=== PATIENT | male | born 1970 | race Caucasian/White ===

== ENCOUNTER 2017-01-20 10:17 | Emergency (ER) | payer OTHER ==
[~2017-01-20] VITALS: Ht 175.3 cm; Wt 78.0 kg
[2017-01-20 10:32] VITALS: BP 106/71
[2017-01-20 11:41] VITALS: BP 106/71
--- NOTE | 2017-01-21 06:53 | Emergency Room Report ---
History of Present Illness General Chief Complaint: Earache Source: Patient Present Illness HPI 46-year-old male no significant past medical history presenting with bilateral ear wax. Patient states that he has not seen a doctor for a long time as he does not have a primary care doctor, states that ears have become very full of wax and have become uncomfortable. Denies any fever chills hearing loss nausea vomiting or headache Allergies: Coded Allergies: No Known Allergies (Unverified , 01/20/17) Patient History Past Medical History: see triage record Past Surgical History: none Pertinent Family History: none Reviewed Nursing Documentation: PMH: Agreed, PSxH: Agreed Nursing Documentation-PMH Past Medical History: No History, Except For Hx Hypertension: Yes Hx Pacemaker: No Hx Asthma: Yes Hx COPD: Yes Hx Diabetes: No Hx Cancer: No Hx Gastrointestinal Problems: Yes - appectectomy Hx Dialysis: No History Of Psychiatric Problem: Yes - Anxiety Hx Neurological Problems: No Hx Cerebrovascular Accident: No Hx Seizures: No Review of Systems All Other Systems: negative except mentioned in HPI Physical Exam Vital Signs Date Time Temp Pulse Resp B/P (MAP) Pulse Ox O2 Delivery O2 Flow Rate FiO2 01/20/17 10:32 98.2 74 16 106/71 97 Room Air Sp02 EP Interpretation: reviewed, normal General Appearance: normal inspection, well appearing, no apparent distress, alert, GCS 15, non-toxic Head: normocephalic, atraumatic Eyes: bilateral eye normal inspection, bilateral eye PERRL, bilateral eye EOMI ENT: normal pharynx, normal voice, moist mucus membranes, other - Right ear canal with moderate amount of cerumen, left ear canal with minimal amount of serum and. Bilateral TMs are within normal limits Neck: normal inspection, full range of motion, supple Respiratory: normal inspection, lungs clear, normal breath sounds, no respiratory distress, no retraction, no wheezing, speaking full sentences, chest symmetrical Cardiovascular #1: normal inspection, regular rate, rhythm, no edema, normal capillary refill Cardiovascular #2: 2+ radial (R), 2+ radial (L) Gastrointestinal: normal inspection, non tender, soft, non-distended, no guarding Musculoskeletal: normal inspection, back normal, normal range of motion, non- tender Neurologic: normal inspection, alert, oriented x3, responsive, motor strength/ tone normal, sensory intact, normal gait, speech normal Psychiatric: normal inspection, judgement/insight normal, memory normal Skin: normal inspection, normal color, no rash, warm/dry, well hydrated, normal turgor Procedures Additional Procedure Procedure Narrative Bilateral middle ear canal irrigation performed to remove ear wax Procedure was performed with normal saline and flush Patient tolerated procedure well Medical Decision Making Diagnostic Impression: Primary Impression: Excessive cerumen in both ear canals ER Course 46-year-old male with bilateral ear wax Plan: Ear canal irrigation ER course: Ear canal irrigation performed with removal of ear wax no complications Disposition: Patient is to be discharged to home. Patient is instructed to follow up with their primary care doctor within 5 days. Strict return precautions discussed with patient such as fever, chills, worsening/severe pain, nausea, vomiting, which may indicate severe illness. Patient verbalizes understanding and agrees with plan. Please note that this Emergency Department Report was dictated using [employer] professor technology software, occasionally this can lead to erroneous entry secondary to interpretation by the dictation equipment Last Vital Signs Date Time Temp Pulse Resp B/P (MAP) Pulse Ox O2 Delivery O2 Flow Rate FiO2 01/20/17 11:49 98.2 01/20/17 11:41 78 16 106/71 97 Room Air Disposition: HOME, SELF-CARE Condition: Stable Referrals: [facility]ERR[facility] (PCP) Patient Instructions: Cerumen Impaction Additional Instructions: Please followup with your primary care doctor within 5 days. Herman Cancino M.D. Jan 21, 2017 06:53
== END 2017-01-20 12:22 | disposition home or self-care (01) ==
LOC: EMR 11:15
DX: H61.23 Impacted cerumen, bilateral (principal); I10 Essential (primary) hypertension; J44.9 Chronic obstructive pulmonary disease, unspecified; F41.9 Anxiety disorder, unspecified
CPT/HCPCS: 69210; 99283

== ENCOUNTER 2017-07-02 23:04 | Inpatient (IN) | payer OTHER ==
[~2017-07-02] VITALS: Ht 175.3 cm; Wt 49.0 kg
[~2017-07-02 23:04] MED LIST: KLONOPIN1 MG ORAL; QUETIAPINE FUMA25 MG ORAL
--- NOTE | 2017-07-02 23:22 | Emergency Room Report ---
History of Present Illness General Chief Complaint: Abdominal Pain Source: Patient Present Illness HPI Is a 46-year-old male with a history of schizophrenia. He is taking cervical and also Adderall for ADHD. He presents with chief complaint abdominal pain. He said he hasn't had a good bowel movement for 2 weeks. His been having abdominal pain on off for a while now. His been in several hospital. Most recently [place] few days ago. He said he was admitted for several days. He had lab work and CT scan. He said they did a colonoscopy and found out. Denies any other complaint. Pain is sharp in nature. Diffuse in nature. 10 out of 10. He was picked up by a nearby fast food restaurant. No radiation. Nothing made it better. Nothing made it worse. No vomiting. Allergies: Coded Allergies: No Known Allergies (Unverified , 01/20/17) Patient History Past Medical History: see triage record, old chart reviewed, psych hx Past Surgical History: none Pertinent Family History: none Social History: Reports: smoking Immunizations: other Reviewed Nursing Documentation: PMH: Agreed, PSxH: Agreed Nursing Documentation-PMH Past Medical History: No History, Except For Hx Hypertension: Yes Hx Pacemaker: No Hx Asthma: Yes Hx COPD: Yes Hx Diabetes: No Hx Cancer: No Hx Gastrointestinal Problems: Yes - appectectomy Hx Dialysis: No History Of Psychiatric Problem: Yes Hx Neurological Problems: No Hx Cerebrovascular Accident: No Hx Seizures: No Review of Systems Eye: Denies: eye pain, blurred vision ENT: Denies: ear pain, nose congestion, throat swelling Respiratory: Denies: cough, shortness of breath Cardiovascular: Denies: chest pain, palpitations Gastrointestinal: Reports: abdominal pain, Denies: diarrhea, nausea, vomiting Musculoskeletal: Denies: back pain, joint pain Skin: Denies: rash Neurological: Denies: headache, numbness Endocrine: Denies: increased thirst, increased urine Hematologic/Lymphatic: Denies: easy bruising All Other Systems: negative except mentioned in HPI Physical Exam Vital Signs Date Time Temp Pulse Resp B/P (MAP) Pulse Ox O2 Delivery O2 Flow Rate FiO2 07/02/17 22:58 92 18 146/94 98 Room Air vitals normal Sp02 EP Interpretation: reviewed, normal General Appearance: well appearing, no apparent distress, alert, other - Patient is very demonstrative. Yelling in pain. Head: normocephalic, atraumatic Eyes: bilateral eye PERRL, bilateral eye EOMI ENT: hearing grossly normal, normal pharynx Neck: full range of motion, supple, no meningismus Respiratory: chest non-tender, lungs clear, normal breath sounds Cardiovascular #1: regular rate, rhythm, no murmur Gastrointestinal: no mass, no organomegaly, no bruit, non-distended, tenderness - Diffuse, but soft, decreased bowel sounds Rectal: other - normal tone. hard stool Musculoskeletal: back normal, gait/station normal, normal range of motion Psychiatric: mood/affect normal Skin: warm/dry Medical Decision Making Diagnostic Impression: Primary Impression: ARF (acute renal failure) Qualified Codes: N17.9 - Acute kidney failure, unspecified Additional Impressions: Acute constipation Jejunitis Amphetamine abuse Opiate dependence Qualified Codes: F11.20 - Opioid dependence, uncomplicated UTI (urinary tract infection) Qualified Codes: N30.00 - Acute cystitis without hematuria ER Course Patient with abdominal pain and severe constipation. Systolic combination of drug abuse and opioid abuse. Patient initially said that he is not on any pain medication. Also told me that he does not use drugs when asked about drug abuse. He said that he was prescribe Adderall for ADHD. On the [employer] system, he is monthly prescription for hydrocodone. Also see other doctors for prescription of clonazepam and opiates. There is no prescription for Adderall. When I ask him about this, he told me that he was given to him by his friend. He was at [place] 6 days ago. Labs are unremarkable. BUN is normal. White count was normal. A CT scan and showed moderate dilated small bowel with fluid relating to large amount of fecal material in the colon. He has acute renal failure here. This may be secondary to drug abuse. He had her amount of stool with Fleet enema. I discussed the case with Dr. Brown who sent the patient for transfer to [facility]. I also review the records from [place]. Laboratory Tests Test 07/03/17 00:01 White Blood Count 18.0 K/UL (4.8-10.8) H Red Blood Count 5.64 M/UL (4.70-6.10) Hemoglobin 18.0 G/DL (14.2-18.0) Hematocrit 53.7 % (42.0-52.0) H Mean Corpuscular Volume 95 FL (80-99) Mean Corpuscular Hemoglobin 32.0 PG (27.0-31.0) H Mean Corpuscular Hemoglobin Concent 33.6 G/DL (32.0-36.0) Red Cell Distribution Width 11.9 % (11.6-14.8) Platelet Count 349 K/UL (150-450) Mean Platelet Volume 6.2 FL (6.5-10.1) L Neutrophils (%) (Auto) % (45.0-75.0) Lymphocytes (%) (Auto) % (20.0-45.0) Monocytes (%) (Auto) % (1.0-10.0) Eosinophils (%) (Auto) % (0.0-3.0) Basophils (%) (Auto) % (0.0-2.0) Urine Color Yellow Urine Appearance Slightly cloudy Urine pH 5 (4.5-8.0) Urine Specific [place] 1.025 (1.005-1.035) Urine Protein 2+ (NEGATIVE) H Urine Glucose (UA) Negative (NEGATIVE) Urine Ketones 1+ (NEGATIVE) H Urine Occult Blood 3+ (NEGATIVE) H Urine Nitrite Negative (NEGATIVE) Urine Bilirubin 1+ (NEGATIVE) H Urine Ictotest Positive Urine Urobilinogen Normal MG/DL (0.0-1.0) Urine Leukocyte Esterase 2+ (NEGATIVE) H Urine RBC 30-40 /HPF (0 - 0) H Urine WBC 15-20 /HPF (0 - 0) H Urine Squamous Epithelial Cells None /LPF (NONE/OCC) Urine Bacteria Moderate /HPF (NONE) H Urine Sperm Many /LPF (NONE) Sodium Level 136 MMOL/L (136-145) Potassium Level 5.9 MMOL/L (3.5-5.1) H Chloride Level 94 MMOL/L (98-107) L Carbon Dioxide Level 18 MMOL/L (21-32) L Anion Gap 24 mmol/L (5-15) H Blood Urea Nitrogen 64 mg/dL (7-18) H Creatinine 5.0 MG/DL (0.55-1.30) H Estimat Glomerular Filtration Rate 12.5 mL/min (>60) Glucose Level 122 MG/DL (74-106) H Calcium Level 9.8 MG/DL (8.5-10.1) Total Bilirubin 0.5 MG/DL (0.2-1.0) Aspartate Amino Transf (AST/SGOT) 75 U/L (15-37) H Alanine Aminotransferase (ALT/SGPT) 72 U/L (12-78) Alkaline Phosphatase 119 U/L (46-116) H Total Protein 8.8 G/DL (6.4-8.2) H Albumin 4.5 G/DL (3.4-5.0) Globulin 4.3 g/dL Albumin/Globulin Ratio 1.0 (1.0-2.7) Lipase 139 U/L (73-393) Urine Opiates Screen Negative (NEGATIVE) Urine Barbiturates Screen Negative (NEGATIVE) Phencyclidine (PCP) Screen Negative (NEGATIVE) Urine Amphetamines Screen Positive (NEGATIVE) H Urine Benzodiazepines Screen Negative (NEGATIVE) Urine Cocaine Screen Negative (NEGATIVE) Urine Marijuana (THC) Screen Negative (NEGATIVE) Lab Results Impression labs with acute renal failure Rhythm Strip Diag. Results Rhythm Strip Time: 02:54 EP Interpretation: yes Rate: 88 Rhythm: NSR, no PVC's, no ectopy CT/MRI/US Diagnostic Results CT/MRI/US Diagnostic Results : Imaging Test Ordered: CT abdomen and pelvis Impression read by radiologist. Inflammation of the jejeunum. Severe constipation. Last Vital Signs Date Time Temp Pulse Resp B/P (MAP) Pulse Ox O2 Delivery O2 Flow Rate FiO2 07/02/17 22:58 92 18 146/94 98 Room Air Status: improved Disposition: XFER SHT-TRM HOSP Condition: Stable MELISA REED M.D. Jul 02, 2017 23:22
[2017-07-02] MEDS ORDERED: Fleet's Enema 133ml RECTAL ONE (23:30)
[2017-07-02] MEDS ORDERED: Ketorolac 30mg Inj IV ONE (23:30)
[2017-07-03] VITALS (7 sets, daily range): BP systolic 118–157; BP diastolic 65–99
[2017-07-03 00:29] LABS: HEMATOCRIT 53.7 % (42.0-52.0); MEAN CORPUSCULAR VOLUME 95 FL (80-99); PLATELET COUNT 349 K/UL (150-450); RED BLOOD COUNT 5.64 M/UL (4.70-6.10); RED CELL DISTRIBUTION WIDTH 11.9 % (11.6-14.8)
[2017-07-03 00:39] LABS: ALANINE AMINOTRANSFERASE 72 U/L (12-78); ALBUMIN 4.5 G/DL (3.4-5.0); ALKALINE PHOSPHATASE 119 U/L (46-116); ANION GAP 24 mmol/L (5-15); ASPARTATE AMINO TRANSFERASE 75 U/L (15-37); BILIRUBIN,TOTAL 0.5 MG/DL (0.2-1.0); BLOOD UREA NITROGEN 64 mg/dL (7-18); CALCIUM 9.8 MG/DL (8.5-10.1); CARBON DIOXIDE 18 MMOL/L (21-32); CHLORIDE 94 MMOL/L (98-107); POTASSIUM 5.9 MMOL/L (3.5-5.1); SODIUM 136 MMOL/L (136-145)
[2017-07-03 01:57] LABS: BILIRUBIN, URINE 1+ (NEGATIVE); GLUCOSE, URINE (UA) NEGATIVE (NEGATIVE); KETONES,URINE 1+ (NEGATIVE); NITRITE,URINE NEGATIVE (NEGATIVE); PH,URINE 5 (4.5-8.0); PROTEIN,URINE 2+ (NEGATIVE); UROBILINOGEN,URINE NORMAL MG/DL (0.0-1.0)
[2017-07-03 02:09] LABS: APPEARANCE,URINE SLIGHTLY CLOUDY; COLOR,URINE YELLOW; LEUKOCYTE ESTERASE ,URINE 2+ (NEGATIVE)
[2017-07-03] MEDS ORDERED: Ciprofloxacin 500mg tab ORAL ONE (02:30)
[2017-07-03] MEDS ORDERED: Mylanta II UD 30ml ORAL PRN ×2 (07:15→10:30)
[2017-07-03] MEDS ORDERED: LORazepam Inj 2mg/ml 1ml IV PRN ×2 (07:15→11:15)
[2017-07-03] MEDS ORDERED: Morphine Sulfate 4mg/ml Inj IVP PRN ×2 (07:15→11:15)
[2017-07-03] MEDS ORDERED: Heparin 5000 units/ml inj SUBQ SCH (09:00)
--- NOTE | 2017-07-03 09:13 | Diagnostic Imaging Report ---
Indication: Abdominal pain Technique: Continuous helical transaxial imaging of the abdomen and pelvis was obtained from the lung bases to the pubic symphysis. No intravenous contrast was administered. Coronal 2-D reformats were also obtained. Automatic Exposure Control was utilized. Total Dose length Product (DLP): 460.[address] Dose Index Volume (CTDIvol): 9.4 mGy Comparison: none Findings: There are mildly distended loops of small bowel diffusely noted throughout the abdomen with suggestion of mild wall thickening. The small bowel loops are primarily fluid-filled. Enteritis is suspected. There is also moderate amount of retention of fecal material within the colon which is also distended. Arterial calcifications are present. The lung bases are clear. Evaluation of solid organs is limited on the study done without intravenous contrast. Gallbladder is grossly unremarkable. Bladder is unremarkable. IMPRESSION: Suspected enteritis. Please correlate clinically. Moderate stool retention in the colon also noted. Appendix not definitely seen. No obvious signs of acute appendicitis. [facility] has communicated the preliminary results to the Emergency Department. Their findings are largely concordant with this report. The CT scanner at [facility] is accredited by the [employer] and the scans are performed using dose optimization techniques as appropriate to a performed exam including Automatic Exposure control.
[2017-07-03] MEDS ORDERED: Nitroglycerin Subl 0.4mg tab SL PRN (09:15)
[2017-07-03 10:06] LABS: ALANINE AMINOTRANSFERASE 63 U/L (12-78); ALBUMIN 3.9 G/DL (3.4-5.0); ALBUMIN/GLOBULIN RATIO 1.3 (1.0-2.7); ALKALINE PHOSPHATASE 97 U/L (46-116); ANION GAP 17 mmol/L (5-15); ASPARTATE AMINO TRANSFERASE 86 U/L (15-37); BILIRUBIN,TOTAL 0.5 MG/DL (0.2-1.0); BLOOD UREA NITROGEN 81 mg/dL (7-18); CALCIUM 8.8 MG/DL (8.5-10.1); CARBON DIOXIDE 22 MMOL/L (21-32); CHLORIDE 96 MMOL/L (98-107); CREATINE KINASE 1543 U/L (26-308); CREATININE 4.9 MG/DL (0.55-1.30); PHOSPHORUS 8.9 MG/DL (2.5-4.9); SODIUM 135 MMOL/L (136-145)
--- NOTE | 2017-07-03 10:08 | Diagnostic Imaging Report ---
Indication: Abdominal pain Comparison: None Single view of the abdomen obtained Findings: There is a relative paucity of bowel gas. There is distention of the colon due to feces. No mass, ectopic calcifications, or abnormal gas collections are identified. The bones are unremarkable. Impression: Moderate stool burden. Relatively nondiagnostic study with regard to small bowel.
[2017-07-03 10:15] LABS: POTASSIUM 7.6 MMOL/L (3.5-5.1)
[2017-07-03] MEDS: Nitroglycerin Subl 0.4mg tab SL PRN ×2 (10:18→10:27)
--- NOTE | 2017-07-03 10:44 | Consultation ---
Consult Note Consult Note asked to eval for renal failure Is a 46-year-old male with a history of schizophrenia. He is taking cervical and also Adderall for ADHD. He presents with chief complaint abdominal pain. He said he hasn't had a good bowel movement for 2 weeks. His been having abdominal pain on off for a while now. His been in several hospital. Most recently [place] few days ago. He said he was admitted for several days. He had lab work and CT scan. He said they did a colonoscopy and found out. Denies any other complaint. Pain is sharp in nature. Diffuse in nature. 10 out of 10. He was picked up by a nearby fast food restaurant. No radiation. Nothing made it better. Nothing made it worse. No vomiting. Hx Hypertension: Yes Hx Asthma: Yes Hx COPD: Yes Hx Gastrointestinal Problems: Yes - appectectomy History Of Psychiatric Problem: Yes examined- data reviewed discussed with RN . Assessment/Plan Status: acute renal failure- ? CKD underlying High K Plan: Hydrate- 2D echo Kidney VALDEZ Kayexelate Flomax Dickens Phos binders NOEMY MARK Jul 03, 2017 10:44
[2017-07-03] MEDS ORDERED: Sodium Polystyrene Sulfonate 15gm Powder ORAL ONE ×2 (10:45→10:50)
[2017-07-03] MEDS: Docusate 100mg cap ORAL SCH ×2 (11:19→17:37)
[2017-07-03] MEDS: D5NS 1,000 ML IV SCH ×3 (11:20→20:45)
[2017-07-03] MEDS: Tamsulosin 0.4mg cap ORAL SCH ×2 (11:20→17:38)
--- NOTE | 2017-07-03 13:31 | History and Physical ---
History of Present Illness General Reason for Hospitalization: Abdominal Pain Present Illness HPI 46-year-old male with a history of schizophrenia presented to ER with chief complaint abdominal pain. He said he hasn't had a good bowel movement for 2 weeks. His been in several hospital. Most recently [place] few days ago. Denies any other complaint. Pain is sharp in nature. No radiation. Nothing made it better. Pt was found to be in renal failure and admitted for further work up. Allergies: Coded Allergies: No Known Allergies (Unverified , 01/20/17) Medication History Scheduled Clonazepam* (Klonopin*), 1 MG ORAL Q6H, (Reported) Quetiapine Fumarate* (Seroquel*), 25 MG ORAL DAILY, (Reported) Patient History Healthcare decision maker SELF Resuscitation status Full Code Advanced Directive on File No Past Medical/Surgical History Past Medical/Surgical History: (1) Opiate dependence (2) Psychosis Review of Systems Gastrointestinal: Reports: abdominal pain All Other Systems: negative except mentioned in HPI Physical Exam General Appearance: WD/WN Lines, tubes and drains: peripheral HEENT: normocephalic, atraumatic Neck: non-tender, normal alignment, supple Respiratory/Chest: chest wall non-tender, lungs clear Breasts: no masses Cardiovascular/Chest: normal peripheral pulses, normal rate Abdomen: normal bowel sounds Genitourinary/Rectal: normal genital exam Extremities: normal range of motion Skin Exam: normal pigmentation Last 24 Hour Vital Signs Date Time Temp Pulse Resp B/P (MAP) Pulse Ox O2 Delivery O2 Flow Rate FiO2 07/03/17 12:00 116 07/03/17 11:57 97.5 116 141/99 94 Nasal Cannula 2.0 97.5 07/03/17 10:27 122/59 07/03/17 10:18 164/100 07/03/17 10:03 120 25 157/75 97 Nasal Cannula 2.0 07/03/17 09:37 118/83 07/03/17 08:04 97.7 119 18 118/83 95 Room Air 97.7 07/03/17 06:33 98.8 87 18 128/65 98 Room Air 98.8 07/03/17 06:24 98.8 87 18 135/85 98 Room Air 98.8 07/03/17 03:03 98.8 87 18 135/85 98 Room Air 98.8 07/02/17 22:58 92 18 146/94 98 Room Air Intake and Output 07/02/17 07/03/17 19:00 07:00 Intake Total 0 ml Balance 0 ml Intake Oral 0 ml Laboratory Tests Test 07/03/17 00:01 07/03/17 09:05 07/03/17 10:55 White Blood Count 18.0 K/UL (4.8-10.8) H Red Blood Count 5.64 M/UL (4.70-6.10) Hemoglobin 18.0 G/DL (14.2-18.0) Hematocrit 53.7 % (42.0-52.0) H Mean Corpuscular Volume 95 FL (80-99) Mean Corpuscular Hemoglobin 32.0 PG (27.0-31.0) H Mean Corpuscular Hemoglobin Concent 33.6 G/DL (32.0-36.0) Red Cell Distribution Width 11.9 % (11.6-14.8) Platelet Count 349 K/UL (150-450) Mean Platelet Volume 6.2 FL (6.5-10.1) L Neutrophils (%) (Auto) % (45.0-75.0) Lymphocytes (%) (Auto) % (20.0-45.0) Monocytes (%) (Auto) % (1.0-10.0) Eosinophils (%) (Auto) % (0.0-3.0) Basophils (%) (Auto) % (0.0-2.0) Urine Color Yellow Pending Urine Appearance Slightly cloudy Pending Urine pH 5 (4.5-8.0) Pending Urine Specific [place] 1.025 (1.005-1.035) Pending Urine Protein 2+ (NEGATIVE) H Pending Urine Glucose (UA) Negative (NEGATIVE) Pending Urine Ketones 1+ (NEGATIVE) H Pending Urine Occult Blood 3+ (NEGATIVE) H Pending Urine Nitrite Negative (NEGATIVE) Pending Urine Bilirubin 1+ (NEGATIVE) H Pending Urine Ictotest Positive Urine Urobilinogen Normal MG/DL (0.0-1.0) Pending Urine Leukocyte Esterase 2+ (NEGATIVE) H Pending Urine RBC 30-40 /HPF (0 - 0) H Pending Urine WBC 15-20 /HPF (0 - 0) H Pending Urine Squamous Epithelial Cells None /LPF (NONE/OCC) Pending Urine Bacteria Moderate /HPF (NONE) H Pending Urine Sperm Many /LPF (NONE) Sodium Level 136 MMOL/L (136-145) 135 MMOL/L (136-145) L Potassium Level 5.9 MMOL/L (3.5-5.1) H 7.6 MMOL/L (3.5-5.1) *H Chloride Level 94 MMOL/L (98-107) L 96 MMOL/L (98-107) L Carbon Dioxide Level 18 MMOL/L (21-32) L 22 MMOL/L (21-32) Anion Gap 24 mmol/L (5-15) H 17 mmol/L (5-15) H Blood Urea Nitrogen 64 mg/dL (7-18) H 81 mg/dL (7-18) H Creatinine 5.0 MG/DL (0.55-1.30) H 4.9 MG/DL (0.55-1.30) H Estimat Glomerular Filtration Rate 12.5 mL/min (>60) 12.8 mL/min (>60) Glucose Level 122 MG/DL (74-106) H 109 MG/DL (74-106) H Calcium Level 9.8 MG/DL (8.5-10.1) 8.8 MG/DL (8.5-10.1) Total Bilirubin 0.5 MG/DL (0.2-1.0) 0.5 MG/DL (0.2-1.0) Aspartate Amino Transf (AST/SGOT) 75 U/L (15-37) H 86 U/L (15-37) H Alanine Aminotransferase (ALT/SGPT) 72 U/L (12-78) 63 U/L (12-78) Alkaline Phosphatase 119 U/L (46-116) H 97 U/L (46-116) Total Protein 8.8 G/DL (6.4-8.2) H 7.0 G/DL (6.4-8.2) Albumin 4.5 G/DL (3.4-5.0) 3.9 G/DL (3.4-5.0) Globulin 4.3 g/dL 3.1 g/dL Albumin/Globulin Ratio 1.0 (1.0-2.7) 1.3 (1.0-2.7) Lipase 139 U/L (73-393) Urine Opiates Screen Negative (NEGATIVE) Urine Barbiturates Screen Negative (NEGATIVE) Phencyclidine (PCP) Screen Negative (NEGATIVE) Urine Amphetamines Screen Positive (NEGATIVE) H Urine Benzodiazepines Screen Negative (NEGATIVE) Urine Cocaine Screen Negative (NEGATIVE) Urine Marijuana (THC) Screen Negative (NEGATIVE) Osmolality 316 mOsm/kg (297-317) Uric Acid 12.7 MG/DL (2.6-7.2) H Phosphorus Level 8.9 MG/DL (2.5-4.9) H Magnesium Level 2.6 MG/DL (1.8-2.4) H Total Creatine Kinase 1543 U/L (26-308) H Troponin I 0.000 ng/mL (0.000-0.056) C-Reactive Protein, Quantitative 28.0 mg/dL (0.00-0.90) H Free Thyroxine 1.00 NG/DL (0.76-1.46) Free Triiodothyronine 2.2 pg/mL (2.3-4.2) L Cortisol Pending Urine Eosinophils Pending Urine Osmolality Pending Urine Random Sodium 18 MEQ/L (20-110) L Urine Random Chloride 37 mmol/L (55-125) L Urine Potassium Timed 96 mmol/L (12-62) H Height (Feet): 5 Height (Inches): 9.00 Weight (Pounds): 158 Medications Current Medications Medications (Trade) Dose Ordered Sig/Kayy Route PRN Reason Start Time Stop Time Status Last Admin Dose Admin Acetaminophen (Tylenol) 650 mg Q4H PRN ORAL T>100.5 07/03/17 10:30 08/02/17 10:29 Clonazepam (KlonoPIN) 1 mg Q6H PRN ORAL ANXIETY 07/03/17 13:15 07/10/17 07:14 Clonidine HCl (Catapres Tab) 0.1 mg Q4H PRN ORAL SBP > 160mmHg 07/03/17 11:15 08/02/17 07:14 Dextrose (Dextrose 50%) STAT PRN IV Hypoglycemia 07/03/17 10:30 08/02/17 10:29 Dextrose/Sodium Chloride 1,000 ml @ 200 mls/hr Q5H IV 07/03/17 10:45 08/02/17 10:44 07/03/17 11:20 Docusate Sodium (Colace) 100 mg TWICE A DAY ORAL 07/03/17 10:45 08/02/17 10:44 07/03/17 11:19 Heparin Sodium (Porcine) (Heparin 5000 units/ml) 5,000 units EVERY 12 HOURS SUBQ 07/03/17 21:00 08/02/17 08:59 Lorazepam (Ativan 2mg/ml 1ml) 0.5 mg Q4H PRN IV Breakthrough agitation 07/03/17 11:15 07/10/17 07:14 Morphine Sulfate (Morphine Sulfate) 1 mg Q4H PRN IVP Severe Pain (Pain Scale 7-10) 07/03/17 11:15 07/10/17 07:14 07/03/17 12:33 Nitroglycerin (Ntg) 0.4 mg Q5M PRN SL Prn Chest Pain 07/03/17 10:15 08/02/17 09:14 07/03/17 10:27 Ondansetron HCl (Zofran) 4 mg Q6H PRN IVP Nausea & Vomiting 07/03/17 10:30 08/02/17 10:29 Pantoprazole (Protonix) 40 mg EVERY 12 HOURS ORAL 07/03/17 10:45 08/02/17 10:44 07/03/17 11:19 Polyethylene Glycol (Miralax) 17 gm HSPRN PRN ORAL Constipation 07/03/17 21:00 08/02/17 20:59 Quetiapine Fumarate (SEROquel) 25 mg Q8HR ORAL 07/03/17 14:00 08/02/17 13:59 Sevelamer Carbonate (Renvela) 1,600 mg THREE TIMES A DAY ORAL 07/03/17 13:00 08/02/17 12:59 Tamsulosin HCl (Flomax) 0.4 mg BID ORAL 07/03/17 10:45 08/02/17 10:44 07/03/17 11:20 Zolpidem Tartrate (Ambien) 5 mg HSPRN PRN ORAL Insomnia 07/03/17 21:00 07/10/17 20:59 Assessment/Plan Problem List: (1) ARF (acute renal failure) ICD Codes: N17.9 - Acute kidney failure, unspecified SNOMED: 13659207 Qualifiers: Qualified Codes: N17.9 - Acute kidney failure, unspecified (2) Psychosis ICD Codes: F29 - Unspecified psychosis not due to a substance or known physiological condition SNOMED: 40755957 (3) Acute constipation ICD Codes: K59.00 - Constipation, unspecified SNOMED: 877159374 (4) Amphetamine abuse ICD Codes: F15.10 - Other stimulant abuse, uncomplicated SNOMED: 78840125 Assessment/Plan iv fluids renal w/u check electrolytes psych to see echo renal US GI to see YUVAL HATCH Jul 03, 2017 13:31
[2017-07-03] MEDS ORDERED: Morphine Sulfate 2mg/ml Inj IVP ONE (15:15)
[2017-07-03] MEDS: Morphine Sulfate 4mg/ml Inj IVP PRN ×2 (15:22→21:06)
--- NOTE | 2017-07-03 17:42 | Consultation ---
History of Present Illness General Date patient seen: Jul 03, 2017 Chief Complaint: Abdominal Pain Present Illness HPI 46-year-old male with a history of schizophrenia and ADHD. He presents with chief complaint abdominal pain. the pt was agitated during the eval and c/o anxiety. He is unable to calm self down. the pt doesnt endorse si/hi. no avh Allergies: Coded Allergies: No Known Allergies (Unverified , 01/20/17) Medication History Scheduled Clonazepam* (Klonopin*), 1 MG ORAL Q6H, (Reported) Quetiapine Fumarate* (Seroquel*), 25 MG ORAL DAILY, (Reported) Patient History History Provided By: Patient, Significant Other, PMD Healthcare decision maker SELF Resuscitation status Full Code Advanced Directive on File No Past Medical/Surgical History Past Medical/Surgical History: (1) Excessive cerumen in both ear canals (2) UTI (urinary tract infection) (3) Jejunitis (4) Acute constipation (5) Opiate dependence (6) Psychosis (7) Amphetamine abuse (8) ARF (acute renal failure) Review of Systems Psychiatric: Reports: prior hx, anxiety, depressed feelings, emotional problems Physical Exam General Appearance: no apparent distress, alert, agitated Neurologic: alert, oriented x 3, responsive, depressed affect Last 24 Hour Vital Signs Date Time Temp Pulse Resp B/P (MAP) Pulse Ox O2 Delivery O2 Flow Rate FiO2 07/03/17 16:00 97.2 109 24 140/91 98 Nasal Cannula 2.0 97.2 07/03/17 16:00 109 07/03/17 15:01 93 Nasal Cannula 2.0 28 07/03/17 15:01 Nasal Cannula 2.0 28 07/03/17 12:00 116 07/03/17 11:57 97.5 116 141/99 94 Nasal Cannula 2.0 97.5 07/03/17 10:27 122/59 07/03/17 10:18 164/100 07/03/17 10:03 120 25 157/75 97 Nasal Cannula 2.0 07/03/17 09:37 118/83 07/03/17 08:04 97.7 119 18 118/83 95 Room Air 97.7 07/03/17 06:33 98.8 87 18 128/65 98 Room Air 98.8 07/03/17 06:24 98.8 87 18 135/85 98 Room Air 98.8 07/03/17 03:03 98.8 87 18 135/85 98 Room Air 98.8 07/02/17 22:58 92 18 146/94 98 Room Air Intake and Output 07/02/17 07/03/17 19:00 07:00 Intake Total 0 ml Balance 0 ml Intake Oral 0 ml Laboratory Tests Test 07/03/17 00:01 07/03/17 09:05 07/03/17 10:55 White Blood Count 18.0 K/UL (4.8-10.8) H Red Blood Count 5.64 M/UL (4.70-6.10) Hemoglobin 18.0 G/DL (14.2-18.0) Hematocrit 53.7 % (42.0-52.0) H Mean Corpuscular Volume 95 FL (80-99) Mean Corpuscular Hemoglobin 32.0 PG (27.0-31.0) H Mean Corpuscular Hemoglobin Concent 33.6 G/DL (32.0-36.0) Red Cell Distribution Width 11.9 % (11.6-14.8) Platelet Count 349 K/UL (150-450) Mean Platelet Volume 6.2 FL (6.5-10.1) L Neutrophils (%) (Auto) % (45.0-75.0) Lymphocytes (%) (Auto) % (20.0-45.0) Monocytes (%) (Auto) % (1.0-10.0) Eosinophils (%) (Auto) % (0.0-3.0) Basophils (%) (Auto) % (0.0-2.0) Urine Color Yellow Pending Urine Appearance Slightly cloudy Pending Urine pH 5 (4.5-8.0) Pending Urine Specific [place] 1.025 (1.005-1.035) Pending Urine Protein 2+ (NEGATIVE) H Pending Urine Glucose (UA) Negative (NEGATIVE) Pending Urine Ketones 1+ (NEGATIVE) H Pending Urine Occult Blood 3+ (NEGATIVE) H Pending Urine Nitrite Negative (NEGATIVE) Pending Urine Bilirubin 1+ (NEGATIVE) H Pending Urine Ictotest Positive Urine Urobilinogen Normal MG/DL (0.0-1.0) Pending Urine Leukocyte Esterase 2+ (NEGATIVE) H Pending Urine RBC 30-40 /HPF (0 - 0) H Pending Urine WBC 15-20 /HPF (0 - 0) H Pending Urine Squamous Epithelial Cells None /LPF (NONE/OCC) Pending Urine Bacteria Moderate /HPF (NONE) H Pending Urine Sperm Many /LPF (NONE) Sodium Level 136 MMOL/L (136-145) 135 MMOL/L (136-145) L Potassium Level 5.9 MMOL/L (3.5-5.1) H 7.6 MMOL/L (3.5-5.1) *H Chloride Level 94 MMOL/L (98-107) L 96 MMOL/L (98-107) L Carbon Dioxide Level 18 MMOL/L (21-32) L 22 MMOL/L (21-32) Anion Gap 24 mmol/L (5-15) H 17 mmol/L (5-15) H Blood Urea Nitrogen 64 mg/dL (7-18) H 81 mg/dL (7-18) H Creatinine 5.0 MG/DL (0.55-1.30) H 4.9 MG/DL (0.55-1.30) H Estimat Glomerular Filtration Rate 12.5 mL/min (>60) 12.8 mL/min (>60) Glucose Level 122 MG/DL (74-106) H 109 MG/DL (74-106) H Calcium Level 9.8 MG/DL (8.5-10.1) 8.8 MG/DL (8.5-10.1) Total Bilirubin 0.5 MG/DL (0.2-1.0) 0.5 MG/DL (0.2-1.0) Aspartate Amino Transf (AST/SGOT) 75 U/L (15-37) H 86 U/L (15-37) H Alanine Aminotransferase (ALT/SGPT) 72 U/L (12-78) 63 U/L (12-78) Alkaline Phosphatase 119 U/L (46-116) H 97 U/L (46-116) Total Protein 8.8 G/DL (6.4-8.2) H 7.0 G/DL (6.4-8.2) Albumin 4.5 G/DL (3.4-5.0) 3.9 G/DL (3.4-5.0) Globulin 4.3 g/dL 3.1 g/dL Albumin/Globulin Ratio 1.0 (1.0-2.7) 1.3 (1.0-2.7) Lipase 139 U/L (73-393) Urine Opiates Screen Negative (NEGATIVE) Urine Barbiturates Screen Negative (NEGATIVE) Phencyclidine (PCP) Screen Negative (NEGATIVE) Urine Amphetamines Screen Positive (NEGATIVE) H Urine Benzodiazepines Screen Negative (NEGATIVE) Urine Cocaine Screen Negative (NEGATIVE) Urine Marijuana (THC) Screen Negative (NEGATIVE) Osmolality 316 mOsm/kg (297-317) Uric Acid 12.7 MG/DL (2.6-7.2) H Phosphorus Level 8.9 MG/DL (2.5-4.9) H Magnesium Level 2.6 MG/DL (1.8-2.4) H Total Creatine Kinase 1543 U/L (26-308) H Troponin I 0.000 ng/mL (0.000-0.056) C-Reactive Protein, Quantitative 28.0 mg/dL (0.00-0.90) H Free Thyroxine 1.00 NG/DL (0.76-1.46) Free Triiodothyronine 2.2 pg/mL (2.3-4.2) L Cortisol Pending Urine Eosinophils Pending Urine Osmolality 444 mOsm/kg (429-449) Urine Random Sodium 18 MEQ/L (20-110) L Urine Random Chloride 37 mmol/L (55-125) L Urine Potassium Timed 96 mmol/L (12-62) H Height (Feet): 5 Height (Inches): 9.00 Weight (Pounds): 158 Medications Current Medications Medications (Trade) Dose Ordered Sig/Kayy Route PRN Reason Start Time Stop Time Status Last Admin Dose Admin Acetaminophen (Tylenol) 650 mg Q4H PRN ORAL T>100.5 07/03/17 10:30 08/02/17 10:29 Clonazepam (KlonoPIN) 1 mg Q6H PRN ORAL ANXIETY 07/03/17 13:15 07/10/17 07:14 Clonidine HCl (Catapres Tab) 0.1 mg Q4H PRN ORAL SBP > 160mmHg 07/03/17 11:15 08/02/17 07:14 Dextrose (Dextrose 50%) STAT PRN IV Hypoglycemia 07/03/17 10:30 08/02/17 10:29 Dextrose/Sodium Chloride 1,000 ml @ 200 mls/hr Q5H IV 07/03/17 10:45 08/02/17 10:44 07/03/17 11:20 Docusate Sodium (Colace) 100 mg TWICE A DAY ORAL 07/03/17 10:45 08/02/17 10:44 07/03/17 11:19 Heparin Sodium (Porcine) (Heparin 5000 units/ml) 5,000 units EVERY 12 HOURS SUBQ 07/03/17 21:00 08/02/17 08:59 Lorazepam (Ativan 2mg/ml 1ml) 0.5 mg Q4H PRN IV Breakthrough agitation 07/03/17 11:15 07/10/17 07:14 Morphine Sulfate (Morphine Sulfate) 4 mg Q4H PRN IVP PAIN 4-10 07/03/17 15:00 07/10/17 14:59 07/03/17 15:22 Nitroglycerin (Ntg) 0.4 mg Q5M PRN SL Prn Chest Pain 07/03/17 10:15 08/02/17 09:14 07/03/17 10:27 Ondansetron HCl (Zofran) 4 mg Q6H PRN IVP Nausea & Vomiting 07/03/17 10:30 08/02/17 10:29 Pantoprazole (Protonix) 40 mg EVERY 12 HOURS ORAL 07/03/17 10:45 08/02/17 10:44 07/03/17 11:19 Polyethylene Glycol (Miralax) 17 gm HSPRN PRN ORAL Constipation 07/03/17 21:00 08/02/17 20:59 Quetiapine Fumarate (SEROquel) 25 mg Q8HR ORAL 07/03/17 14:00 08/02/17 13:59 Sevelamer Carbonate (Renvela) 1,600 mg THREE TIMES A DAY ORAL 07/03/17 13:00 08/02/17 12:59 07/03/17 13:49 Tamsulosin HCl (Flomax) 0.4 mg BID ORAL 07/03/17 10:45 08/02/17 10:44 07/03/17 11:20 Zolpidem Tartrate (Ambien) 5 mg HSPRN PRN ORAL Insomnia 07/03/17 21:00 3/6/18 20:59 Assessment/Plan Status: stable Assessment/Plan schizophrenia chronic paranoid type agitation -magalisl -Idalia Munguia M.D. Jul 03, 2017 17:42
--- NOTE | 2017-07-03 18:27 | Cardiology Report ---
APPROVED REPORT EXAM: Two-dimensional and M-mode echocardiogram with Doppler and color Doppler. INDICATION Congestive Heart Failure M-Mode DIMENSIONS IVSd2.9 (0.7-1.1cm)Left Atrium (MM)3.2 (1.6-4.0cm) LVDd4.2 (3.5-5.6cm)Aortic Root3.8 (2.0-3.7cm) PWd1.4 (0.7-1.1cm)Aortic Cusp Exc.1.8 (1.5-2.0cm) IVSs2.9 cm LVDs2.8 (2.5-4.0cm) PWs2.0 cm Technically difficult study due to poor parasternal acoustical windowwtih poor endocardial and valvular definition Normal left ventricular chamber size, systolic function and wall motion to extent visualized. Left ventricular ejection fraction estimated to be probably in gladis normal range . No evidence left ventricular hypertrophy. No evidence of pericardial effusion. All other chamber sizes is within normal limits. Focal aortic valve sclerosis opening nto well seen Mildly Thickened mitral valve leaflets Mildly Mitral annulus. Pulmonic and tricuspid valve not well visualized.. IVC dilated at 2.3 cm without physiologic collapse suggestive of increased RA pressure A color flow and spectral Doppler study was performed and revealed: No aortic regurgitation. Trace mitral regurgitation. Mitral diastolic velocities suggest reduced left ventricular relaxation c/w mild LV diastolic dysfunction (Grade I ) Trace tricuspid regurgitation . Tricuspid systolic velocities suggests peak right ventricular systolic pressure of 19mmHg . No Pulmonic regurgitation present.
--- NOTE | 2017-07-03 18:28 | Cardiology Report ---
APPROVED REPORT EKG Measurement Heart [id number] Sinus tachycardia Anterior infarct, age undetermined Abnormal ECG
[2017-07-03] MEDS ORDERED: Zolpidem 5mg tab ORAL PRN ×2 (21:00)
[2017-07-03] MEDS: Heparin 5000 units/ml inj SUBQ SCH ×2 (21:00→21:03)
[2017-07-03] MEDS ORDERED: Miralax 17gm pkt ORAL PRN ×2 (21:00)
[2017-07-04] VITALS: BP 134/71
[2017-07-04] MEDS: D5NS 1,000 ML IV SCH ×4 (02:47→20:18)
[2017-07-04 04:00] VITALS: BP 136/87
[2017-07-04] MEDS: Morphine Sulfate 4mg/ml Inj IVP PRN ×3 (05:53→18:44)
[2017-07-04 08:00] VITALS: BP 146/81
[2017-07-04] MEDS: Tamsulosin 0.4mg cap ORAL SCH ×2 (08:30→18:41)
[2017-07-04] MEDS: Docusate 100mg cap ORAL SCH (08:30)
[2017-07-04] MEDS: Heparin 5000 units/ml inj SUBQ SCH ×2 (08:30→20:20)
[2017-07-04 09:25] LABS: ALANINE AMINOTRANSFERASE 49 U/L (12-78); ALBUMIN 2.8 G/DL (3.4-5.0); ALBUMIN/GLOBULIN RATIO 0.8 (1.0-2.7); ALKALINE PHOSPHATASE 87 U/L (46-116); ANION GAP 6 mmol/L (5-15); ASPARTATE AMINO TRANSFERASE 90 U/L (15-37); BILIRUBIN,TOTAL 0.5 MG/DL (0.2-1.0); BLOOD UREA NITROGEN 62 mg/dL (7-18); CALCIUM 8.4 MG/DL (8.5-10.1); CARBON DIOXIDE 30 MMOL/L (21-32); CHLORIDE 97 MMOL/L (98-107); CHOLESTEROL 110 MG/DL (< 200); CREATININE 1.8 MG/DL (0.55-1.30); HDL CHOLESTEROL 43 MG/DL (40-60); POTASSIUM 4.7 MMOL/L (3.5-5.1); SODIUM 133 MMOL/L (136-145); TRIGLYCERIDES 189 MG/DL (30-150)
[2017-07-04 10:14] LABS: HEMOGLOBIN 13.3 G/DL (14.2-18.0); MEAN CORPUSCULAR VOLUME 92 FL (80-99); RED BLOOD COUNT 4.14 M/UL (4.70-6.10); RED CELL DISTRIBUTION WIDTH 11.6 % (11.6-14.8); WHITE BLOOD COUNT 5.4 K/UL (4.8-10.8)
[2017-07-04 10:25] LABS: PLATELET COUNT 122 K/UL (150-450)
--- NOTE | 2017-07-04 10:31 | Nephrology Progress Note ---
Assessment/Plan Problem List: (1) ARF (acute renal failure) (2) UTI (urinary tract infection) (3) Psychiatric disorder Assessment Status: acute renal failure- Cr 5 now down to 1.8 ? CKD underlying High K resolved Rhabdo: High CK Plan Plan: Hydrate- [place]- 2D echo normal Ej Fx s/p Kayexelate po Flomax monitor renal parameters Subjective ROS Limited/Unobtainable: No Constitutional: Reports: malaise Objective Objective Last 24 Hour Vital Signs Date Time Temp Pulse Resp B/P (MAP) Pulse Ox O2 Delivery O2 Flow Rate FiO2 07/04/17 08:00 97.5 115 20 146/81 97 Nasal Cannula 2.0 97.5 07/04/17 04:00 119 07/04/17 04:00 97.0 118 20 136/87 96 Nasal Cannula 2.0 97.0 07/04/17 00:00 120 07/04/17 00:00 97.0 115 20 134/71 97 Nasal Cannula 2.0 97.0 07/03/17 20:00 110 07/03/17 20:00 98.0 110 20 136/84 98 Nasal Cannula 2.0 98.0 07/03/17 19:30 Nasal Cannula 2.0 28 07/03/17 19:30 94 Nasal Cannula 2.0 28 07/03/17 16:00 97.2 109 24 140/91 98 Nasal Cannula 2.0 97.2 07/03/17 16:00 109 07/03/17 15:01 93 Nasal Cannula 2.0 28 07/03/17 15:01 Nasal Cannula 2.0 28 07/03/17 12:00 116 07/03/17 11:57 97.5 116 141/99 94 Nasal Cannula 2.0 97.5 07/03/17 10:27 122/59 Intake and Output 07/03/17 07/04/17 19:00 07:00 Intake Total 1920 ml 2080 ml Output Total 250 ml 500 ml Balance 1670 ml 1580 ml Intake Oral 670 ml 480 ml IV Total 1250 ml 1600 ml Output Urine Total 250 ml 500 ml Laboratory Tests 07/03/17 10:55: Urine Color [Pending], Urine Appearance [Pending], Urine pH [Pending], Urine Specific [place] [Pending], Urine Protein [Pending], Urine Glucose (UA) [Pending ], Urine Ketones [Pending], Urine Occult Blood [Pending], Urine Nitrite [Pending ], Urine Bilirubin [Pending], Urine Urobilinogen [Pending], Urine Leukocyte Esterase [Pending], Urine RBC [Pending], Urine WBC [Pending], Urine Squamous Epithelial Cells [Pending], Urine Bacteria [Pending], Urine Eosinophils [Pending ], Urine Osmolality 444, Urine Random Sodium 18L, Urine Random Chloride 37L, Urine Potassium Timed 96H 07/04/17 07:45: Sodium Level 133L, Potassium Level 4.7, Chloride Level 97L, Carbon Dioxide Level 30, Anion Gap 6, Blood Urea Nitrogen 62H, Creatinine 1.8#H, Estimat Glomerular Filtration Rate 40.6, Glucose Level 123H, Hemoglobin A1c [Pending], Uric Acid [Pending], Calcium Level 8.4L, Phosphorus Level [Pending], Magnesium Level [Pending], Total Bilirubin 0.5, Aspartate Amino Transf (AST/SGOT) 90H, Alanine Aminotransferase (ALT/SGPT) 49, Alkaline Phosphatase 87, Troponin I 0.000, Pro-B-Type Natriuretic Peptide [Pending], Total Protein 6.3L, Albumin 2.8L, Globulin 3.5, Albumin/Globulin Ratio 0.8L, Triglycerides Level 189H, Cholesterol Level 110, LDL Cholesterol 30, HDL Cholesterol 43, Cholesterol/HDL Ratio 2.6L, Thyroid Stimulating Hormone (TSH) 5.543H 07/04/17 10:00: White Blood Count [Pending], Red Blood Count [Pending], Hemoglobin [Pending], Hematocrit [Pending], Mean Corpuscular Volume [Pending], Mean Corpuscular Hemoglobin [Pending], Mean Corpuscular Hemoglobin Concent [Pending], Red Cell Distribution Width [Pending], Platelet Count [Pending], Mean Platelet Volume [ Pending], Neutrophils (%) (Auto) [Pending], Lymphocytes (%) (Auto) [Pending], Monocytes (%) (Auto) [Pending], Eosinophils (%) (Auto) [Pending], Basophils (%) (Auto) [Pending] Height (Feet): 5 Height (Inches): 9.00 Weight (Pounds): 158 General Appearance: mild distress Cardiovascular: tachycardia Respiratory/Chest: decreased breath sounds Abdomen: distended Objective no other change NOEMY MARK Jul 04, 2017 10:31
[2017-07-04 11:17] LABS: PHOSPHORUS 5.5 MG/DL (2.5-4.9)
[2017-07-04 12:00] VITALS: BP 132/79
--- NOTE | 2017-07-04 12:13 | Consultation ---
Consult Note Consult Note ID DIC # [id number] STEPH TOLBERT M.D. Jul 04, 2017 12:13
--- NOTE | 2017-07-04 12:17 | Infectious Diseases Prog Note ---
Assessment/Plan Assessment/Plan CRP ELEVATED started on Rocephin Blood Cx : P Subjective Allergies: Coded Allergies: No Known Allergies (Unverified , 01/20/17) Objective Vital Signs Last 24 Hour Vital Signs Date Time Temp Pulse Resp B/P (MAP) Pulse Ox O2 Delivery O2 Flow Rate FiO2 07/04/17 08:00 97.5 115 20 146/81 97 Nasal Cannula 2.0 97.5 07/04/17 07:58 97 Nasal Cannula 2.0 28 07/04/17 07:58 Nasal Cannula 2.0 28 07/04/17 04:00 119 07/04/17 04:00 97.0 118 20 136/87 96 Nasal Cannula 2.0 97.0 07/04/17 00:00 120 07/04/17 00:00 97.0 115 20 134/71 97 Nasal Cannula 2.0 97.0 07/03/17 20:00 110 07/03/17 20:00 98.0 110 20 136/84 98 Nasal Cannula 2.0 98.0 07/03/17 19:30 Nasal Cannula 2.0 28 07/03/17 19:30 94 Nasal Cannula 2.0 28 07/03/17 16:00 97.2 109 24 140/91 98 Nasal Cannula 2.0 97.2 07/03/17 16:00 109 07/03/17 15:01 93 Nasal Cannula 2.0 28 07/03/17 15:01 Nasal Cannula 2.0 28 Height (Feet): 5 Height (Inches): 9.00 Weight (Pounds): 158 Microbiology Date/Time Source Procedure Growth Status 07/03/17 00:01 Urine,Clean Catch Urine Culture - Preliminary NO GROWTH AFTER 24 HOURS Resulted Laboratory Tests Test 07/04/17 07:45 07/04/17 10:00 Sodium Level 133 MMOL/L (136-145) L Potassium Level 4.7 MMOL/L (3.5-5.1) Chloride Level 97 MMOL/L (98-107) L Carbon Dioxide Level 30 MMOL/L (21-32) Anion Gap 6 mmol/L (5-15) Blood Urea Nitrogen 62 mg/dL (7-18) H Creatinine 1.8 MG/DL (0.55-1.30) #H Estimat Glomerular Filtration Rate 40.6 mL/min (>60) Glucose Level 123 MG/DL (74-106) H Hemoglobin A1c 5.3 % (4.3-6.0) Uric Acid 8.4 MG/DL (2.6-7.2) H Calcium Level 8.4 MG/DL (8.5-10.1) L Phosphorus Level 5.5 MG/DL (2.5-4.9) H Magnesium Level 2.5 MG/DL (1.8-2.4) H Total Bilirubin 0.5 MG/DL (0.2-1.0) Aspartate Amino Transf (AST/SGOT) 90 U/L (15-37) H Alanine Aminotransferase (ALT/SGPT) 49 U/L (12-78) Alkaline Phosphatase 87 U/L (46-116) Troponin I 0.000 ng/mL (0.000-0.056) C-Reactive Protein, Quantitative 37.8 mg/dL (0.00-0.90) H Pro-B-Type Natriuretic Peptide 730 pg/mL (0-125) H Total Protein 6.3 G/DL (6.4-8.2) L Albumin 2.8 G/DL (3.4-5.0) L Globulin 3.5 g/dL Albumin/Globulin Ratio 0.8 (1.0-2.7) L Triglycerides Level 189 MG/DL (30-150) H Cholesterol Level 110 MG/DL (< 200) LDL Cholesterol 30 mg/dL (<100) HDL Cholesterol 43 MG/DL (40-60) Cholesterol/HDL Ratio 2.6 (3.3-4.4) L Thyroid Stimulating Hormone (TSH) 5.543 uiU/mL (0.358-3.740) White Blood Count 5.4 K/UL (4.8-10.8) # Red Blood Count 4.14 M/UL (4.70-6.10) L Hemoglobin 13.3 G/DL (14.2-18.0) L Hematocrit 38.0 % (42.0-52.0) L Mean Corpuscular Volume 92 FL (80-99) Mean Corpuscular Hemoglobin 32.3 PG (27.0-31.0) H Mean Corpuscular Hemoglobin Concent 35.1 G/DL (32.0-36.0) Red Cell Distribution Width 11.6 % (11.6-14.8) Platelet Count 122 K/UL (150-450) #L Mean Platelet Volume 6.5 FL (6.5-10.1) Neutrophils (%) (Auto) % (45.0-75.0) Lymphocytes (%) (Auto) % (20.0-45.0) Monocytes (%) (Auto) % (1.0-10.0) Eosinophils (%) (Auto) % (0.0-3.0) Basophils (%) (Auto) % (0.0-2.0) Differential Total Cells Counted 100 Neutrophils % (Manual) 52 % (45-75) Lymphocytes % (Manual) 7 % (20-45) L Monocytes % (Manual) 3 % (1-10) Eosinophils % (Manual) 0 % (0-3) Basophils % (Manual) 0 % (0-2) Metamyelocytes % 2 % (0-0) H Band Neutrophils 36 % (0-8) H Platelet Estimate Decreased L Platelet Morphology Normal Red Blood Cell Morphology Normal Current Medications Medications (Trade) Dose Ordered Sig/Kayy Route PRN Reason Start Time Stop Time Status Last Admin Dose Admin Acetaminophen (Tylenol) 650 mg Q4H PRN ORAL T>100.5 07/03/17 10:30 08/02/17 10:29 Clonazepam (KlonoPIN) 1 mg Q6H PRN ORAL ANXIETY 07/03/17 13:15 07/10/17 07:14 Clonidine HCl (Catapres Tab) 0.1 mg Q4H PRN ORAL SBP > 160mmHg 07/03/17 11:15 08/02/17 07:14 Dextrose (Dextrose 50%) STAT PRN IV Hypoglycemia 07/03/17 10:30 08/02/17 10:29 Dextrose/Sodium Chloride 1,000 ml @ 100 mls/hr Q10H IV 07/04/17 10:45 08/03/17 10:44 07/04/17 10:49 Docusate Sodium (Colace) 100 mg TWICE A DAY ORAL 07/03/17 10:45 08/02/17 10:44 07/04/17 08:30 Heparin Sodium (Porcine) (Heparin 5000 units/ml) 5,000 units EVERY 12 HOURS SUBQ 07/03/17 21:00 08/02/17 08:59 Lorazepam (Ativan 2mg/ml 1ml) 0.5 mg Q4H PRN IV Breakthrough agitation 07/03/17 11:15 07/10/17 07:14 Morphine Sulfate (Morphine Sulfate) 4 mg Q4H PRN IVP PAIN 4-10 07/03/17 15:00 07/10/17 14:59 07/04/17 10:57 Nitroglycerin (Ntg) 0.4 mg Q5M PRN SL Prn Chest Pain 07/03/17 10:15 08/02/17 09:14 07/03/17 10:27 Ondansetron HCl (Zofran) 4 mg Q6H PRN IVP Nausea & Vomiting 07/03/17 10:30 08/02/17 10:29 Pantoprazole (Protonix) 40 mg EVERY 12 HOURS ORAL 07/03/17 10:45 08/02/17 10:44 07/04/17 08:30 Polyethylene Glycol (Miralax) 17 gm HSPRN PRN ORAL Constipation 07/03/17 21:00 08/02/17 20:59 Quetiapine Fumarate (SEROquel) 25 mg Q8HR ORAL 07/03/17 14:00 08/02/17 13:59 07/04/17 05:52 Tamsulosin HCl (Flomax) 0.4 mg BID ORAL 07/03/17 10:45 08/02/17 10:44 07/04/17 08:30 Zolpidem Tartrate (Ambien) 5 mg HSPRN PRN ORAL Insomnia 07/03/17 21:00 07/10/17 20:59 STEPH TOLBERT M.D. Jul 04, 2017 12:17
[2017-07-04] MEDS: cefTRIAXone 2 GM in NS 55 ML IVPB SCH (13:55)
--- NOTE | 2017-07-04 14:59 | General Progress Note ---
Assessment/Plan Status: stable Assessment/Plan Covering for Dr Cordero: (1) ARF (acute renal failure) ICD Codes: N17.9 - Acute kidney failure, unspecified SNOMED: 54914350 Qualifiers: Qualified Codes: N17.9 - Acute kidney failure, unspecified (2) Psychosis ICD Codes: F29 - Unspecified psychosis not due to a substance or known physiological condition SNOMED: 30160431 (3) Acute constipation ICD Codes: K59.00 - Constipation, unspecified SNOMED: 097011047 (4) Amphetamine abuse ICD Codes: F15.10 - Other stimulant abuse, uncomplicated SNOMED: 09439197 (5) Acute Enteritits: Plan: Gi-Dr Castro is consulted Subjective Allergies: Coded Allergies: No Known Allergies (Unverified , 01/20/17) Objective Last 24 Hour Vital Signs Date Time Temp Pulse Resp B/P (MAP) Pulse Ox O2 Delivery O2 Flow Rate FiO2 07/04/17 12:00 97.5 117 20 132/79 97 Nasal Cannula 2.0 97.5 07/04/17 12:00 117 07/04/17 08:00 97.5 115 20 146/81 97 Nasal Cannula 2.0 97.5 07/04/17 08:00 114 07/04/17 07:58 97 Nasal Cannula 2.0 28 07/04/17 07:58 Nasal Cannula 2.0 28 07/04/17 04:00 119 07/04/17 04:00 97.0 118 20 136/87 96 Nasal Cannula 2.0 97.0 07/04/17 00:00 120 07/04/17 00:00 97.0 115 20 134/71 97 Nasal Cannula 2.0 97.0 07/03/17 20:00 110 07/03/17 20:00 98.0 110 20 136/84 98 Nasal Cannula 2.0 98.0 07/03/17 19:30 Nasal Cannula 2.0 28 07/03/17 19:30 94 Nasal Cannula 2.0 28 07/03/17 16:00 97.2 109 24 140/91 98 Nasal Cannula 2.0 97.2 07/03/17 16:00 109 07/03/17 15:01 93 Nasal Cannula 2.0 28 07/03/17 15:01 Nasal Cannula 2.0 28 Intake and Output 07/03/17 07/04/17 19:00 07:00 Intake Total 1920 ml 2080 ml Output Total 250 ml 500 ml Balance 1670 ml 1580 ml Intake Oral 670 ml 480 ml IV Total 1250 ml 1600 ml Output Urine Total 250 ml 500 ml Laboratory Tests 07/04/17 07:45: Sodium Level 133L, Potassium Level 4.7, Chloride Level 97L, Carbon Dioxide Level 30, Anion Gap 6, Blood Urea Nitrogen 62H, Creatinine 1.8#H, Estimat Glomerular Filtration Rate 40.6, Glucose Level 123H, Hemoglobin A1c 5.3, Uric Acid 8.4H, Calcium Level 8.4L, Phosphorus Level 5.5H, Magnesium Level 2.5H, Total Bilirubin 0.5, Aspartate Amino Transf (AST/SGOT) 90H, Alanine Aminotransferase (ALT/SGPT) 49, Alkaline Phosphatase 87, Troponin I 0.000, C- Reactive Protein, Quantitative 37.8H, Pro-B-Type Natriuretic Peptide 730H, Total Protein 6.3L, Albumin 2.8L, Globulin 3.5, Albumin/Globulin Ratio 0.8L, Triglycerides Level 189H, Cholesterol Level 110, LDL Cholesterol 30, HDL Cholesterol 43, Cholesterol/HDL Ratio 2.6L, Thyroid Stimulating Hormone (TSH) 5.543H 07/04/17 10:00: White Blood Count 5.4#, Red Blood Count 4.14L, Hemoglobin 13.3L, Hematocrit 38.0L, Mean Corpuscular Volume 92, Mean Corpuscular Hemoglobin 32.3H, Mean Corpuscular Hemoglobin Concent 35.1, Red Cell Distribution Width 11.6, Platelet Count 122#L, Mean Platelet Volume 6.5, Neutrophils (%) (Auto) , Lymphocytes (%) (Auto) , Monocytes (%) (Auto) , Eosinophils (%) (Auto) , Basophils (%) (Auto) , Differential Total Cells Counted 100, Neutrophils % (Manual) 52, Lymphocytes % ( Manual) 7L, Monocytes % (Manual) 3, Eosinophils % (Manual) 0, Basophils % ( Manual) 0, Metamyelocytes % 2H, Band Neutrophils 36H, Platelet Estimate DecreasedL, Platelet Morphology Normal, Red Blood Cell Morphology Normal Height (Feet): 5 Height (Inches): 9.00 Weight (Pounds): 158 Chuy Mendes MD Jul 04, 2017 14:59
--- NOTE | 2017-07-04 15:25 | GI Initial Consult Note ---
History of Present Illness General Date patient seen: Jul 04, 2017 Time patient seen: 15:15 Reason for Hospitalization: Abdominal Pain Referring physician: YUVAL COTTON Reason for Consultation: CONSTIPATION Present Illness HPI Is a 46-year-old male with a history of schizophrenia. He is taking cervical and also Adderall for ADHD. He presents with chief complaint abdominal pain. He said he hasn't had a good bowel movement for 2 weeks. His been having abdominal pain on off for a while now. His been in several hospital. Most recently [facility] few days ago. He said he was admitted for several days. He had lab work and CT scan. He said they did a colonoscopy and found out. Denies any other complaint. Pain is sharp in nature. Diffuse in nature. 10 out of 10. He was picked up by a nearby fast food restaurant. No radiation. Nothing made it better. Nothing made it worse. No vomiting. GI consulted for constipation. ROS limited, AMS with schizophrenia. NAD with no active s/sx of N/V/D. C/o of constipation, distended abdomen tender to touch. Per patient has had not had any BM for several days. Pt is drug seeking , requesting high amounts of pain medication. Recent colonoscopy at [facility]. Presents today with anemia, HLD, positive utox for amphetamines. Home Meds Reported Medications Quetiapine Fumarate* (SEROQUEL*) 25 Mg Tablet, 25 MG ORAL DAILY, TAB 07/02/17 Clonazepam* (KLONOPIN*) 1 Mg Tablet, 1 MG ORAL Q6H, #15 TAB 0 Refills 07/02/17 Med list reviewed/reconciled: Yes Allergies: Coded Allergies: No Known Allergies (Unverified , 01/20/17) Patient History Limited by: medical condition History Provided By: Patient, Medical Record PMH Narrative Past Medical History: see triage record, old chart reviewed, psych hx Past Surgical History: none Pertinent Family History: none Social History: Reports: smoking Immunizations: other Reviewed Nursing Documentation: PMH: Agreed, PSxH: Agreed Nursing Documentation-PMH Past Medical History: No History, Except For Hx Hypertension: Yes Hx Pacemaker: No Hx Asthma: Yes Hx COPD: Yes Hx Diabetes: No Hx Cancer: No Hx Gastrointestinal Problems: Yes - appectectomy Hx Dialysis: No History Of Psychiatric Problem: Yes Hx Neurological Problems: No Hx Cerebrovascular Accident: No Hx Seizures: No Social History: Reports: alcohol use, drug use Review of Systems All Other Systems: negative except mentioned in HPI Physical Exam Vital Signs Date Time Temp Pulse Resp B/P (MAP) Pulse Ox O2 Delivery O2 Flow Rate FiO2 07/02/17 22:58 92 18 146/94 98 Room Air 07/03/17 03:03 98.8 98.8 07/03/17 10:03 2.0 07/03/17 15:01 28 Sp02 EP Interpretation: reviewed, normal Labs Laboratory Tests Test 07/04/17 07:45 07/04/17 10:00 Sodium Level 133 MMOL/L (136-145) L Potassium Level 4.7 MMOL/L (3.5-5.1) Chloride Level 97 MMOL/L (98-107) L Carbon Dioxide Level 30 MMOL/L (21-32) Anion Gap 6 mmol/L (5-15) Blood Urea Nitrogen 62 mg/dL (7-18) H Creatinine 1.8 MG/DL (0.55-1.30) #H Estimat Glomerular Filtration Rate 40.6 mL/min (>60) Glucose Level 123 MG/DL (74-106) H Hemoglobin A1c 5.3 % (4.3-6.0) Uric Acid 8.4 MG/DL (2.6-7.2) H Calcium Level 8.4 MG/DL (8.5-10.1) L Phosphorus Level 5.5 MG/DL (2.5-4.9) H Magnesium Level 2.5 MG/DL (1.8-2.4) H Total Bilirubin 0.5 MG/DL (0.2-1.0) Aspartate Amino Transf (AST/SGOT) 90 U/L (15-37) H Alanine Aminotransferase (ALT/SGPT) 49 U/L (12-78) Alkaline Phosphatase 87 U/L (46-116) Troponin I 0.000 ng/mL (0.000-0.056) C-Reactive Protein, Quantitative 37.8 mg/dL (0.00-0.90) H Pro-B-Type Natriuretic Peptide 730 pg/mL (0-125) H Total Protein 6.3 G/DL (6.4-8.2) L Albumin 2.8 G/DL (3.4-5.0) L Globulin 3.5 g/dL Albumin/Globulin Ratio 0.8 (1.0-2.7) L Triglycerides Level 189 MG/DL (30-150) H Cholesterol Level 110 MG/DL (< 200) LDL Cholesterol 30 mg/dL (<100) HDL Cholesterol 43 MG/DL (40-60) Cholesterol/HDL Ratio 2.6 (3.3-4.4) L Thyroid Stimulating Hormone (TSH) 5.543 uiU/mL (0.358-3.740) White Blood Count 5.4 K/UL (4.8-10.8) # Red Blood Count 4.14 M/UL (4.70-6.10) L Hemoglobin 13.3 G/DL (14.2-18.0) L Hematocrit 38.0 % (42.0-52.0) L Mean Corpuscular Volume 92 FL (80-99) Mean Corpuscular Hemoglobin 32.3 PG (27.0-31.0) H Mean Corpuscular Hemoglobin Concent 35.1 G/DL (32.0-36.0) Red Cell Distribution Width 11.6 % (11.6-14.8) Platelet Count 122 K/UL (150-450) #L Mean Platelet Volume 6.5 FL (6.5-10.1) Neutrophils (%) (Auto) % (45.0-75.0) Lymphocytes (%) (Auto) % (20.0-45.0) Monocytes (%) (Auto) % (1.0-10.0) Eosinophils (%) (Auto) % (0.0-3.0) Basophils (%) (Auto) % (0.0-2.0) Differential Total Cells Counted 100 Neutrophils % (Manual) 52 % (45-75) Lymphocytes % (Manual) 7 % (20-45) L Monocytes % (Manual) 3 % (1-10) Eosinophils % (Manual) 0 % (0-3) Basophils % (Manual) 0 % (0-2) Metamyelocytes % 2 % (0-0) H Band Neutrophils 36 % (0-8) H Platelet Estimate Decreased L Platelet Morphology Normal Red Blood Cell Morphology Normal General Appearance: well appearing, no apparent distress, alert, thin Head: normocephalic EENT: PERRL/EOMI, normal ENT inspection Neck: supple Respiratory: normal breath sounds, no respiratory distress Cardiovascular: normal rate Gastrointestinal: normal inspection, non tender, soft, normal bowel sounds, non -distended Rectal: deferred Genitourinary: deferred Musculoskeletal: normal inspection, back normal Neurologic: normal inspection, alert, oriented x3, responsive Psychiatric: anxious Skin: normal inspection, normal color, no rash, warm/dry, palpation normal, well hydrated Lymphatic: normal inspection, no adenopathy Current Medications Current Medications Medications (Trade) Dose Ordered Sig/Kayy Route PRN Reason Start Time Stop Time Status Last Admin Dose Admin Acetaminophen (Tylenol) 650 mg Q4H PRN ORAL T>100.5 07/03/17 10:30 08/02/17 10:29 Ceftriaxone Sodium 2 gm/ Sodium Chloride 55 ml @ 110 mls/hr Q24H IVPB 07/04/17 13:00 07/11/17 12:59 07/04/17 13:55 Clonazepam (KlonoPIN) 1 mg Q6H PRN ORAL ANXIETY 07/03/17 13:15 07/10/17 07:14 Clonidine HCl (Catapres Tab) 0.1 mg Q4H PRN ORAL SBP > 160mmHg 07/03/17 11:15 08/02/17 07:14 Dextrose (Dextrose 50%) STAT PRN IV Hypoglycemia 07/03/17 10:30 08/02/17 10:29 Dextrose/Sodium Chloride 1,000 ml @ 100 mls/hr Q10H IV 07/04/17 10:45 08/03/17 10:44 07/04/17 10:49 Heparin Sodium (Porcine) (Heparin 5000 units/ml) 5,000 units EVERY 12 HOURS SUBQ 07/03/17 21:00 08/02/17 08:59 Lactulose (Cephulac) 20 gm THREE TIMES A DAY ORAL 07/04/17 18:00 08/03/17 17:59 UNV Lorazepam (Ativan 2mg/ml 1ml) 0.5 mg Q4H PRN IV Breakthrough agitation 07/03/17 11:15 07/10/17 07:14 Morphine Sulfate (Morphine Sulfate) 4 mg Q4H PRN IVP PAIN 4-10 07/03/17 15:00 07/10/17 14:59 07/04/17 10:57 Nitroglycerin (Ntg) 0.4 mg Q5M PRN SL Prn Chest Pain 07/03/17 10:15 08/02/17 09:14 07/03/17 10:27 Ondansetron HCl (Zofran) 4 mg Q6H PRN IVP Nausea & Vomiting 07/03/17 10:30 08/02/17 10:29 Pantoprazole (Protonix) 40 mg DAILY ORAL 07/05/17 09:00 08/02/17 10:44 Polyethylene Glycol (Miralax) 17 gm BEDTIME ORAL 07/04/17 21:00 08/03/17 20:59 Polyethylene Glycol (Miralax) 17 gm HSPRN PRN ORAL Constipation 07/03/17 21:00 08/02/17 20:59 Quetiapine Fumarate (SEROquel) 25 mg Q8HR ORAL 07/03/17 14:00 08/02/17 13:59 07/04/17 13:55 Tamsulosin HCl (Flomax) 0.4 mg BID ORAL 07/03/17 10:45 08/02/17 10:44 07/04/17 08:30 Zolpidem Tartrate (Ambien) 5 mg HSPRN PRN ORAL Insomnia 07/03/17 21:00 07/10/17 20:59 GI: Plan Problems: (1) Therapeutic opioid-induced constipation (OIC) (2) Opiate dependence (3) Acute constipation (4) Amphetamine abuse Plan utox positive for amphetamines symptomatic treatment regular diet lactulose TID + miralax ppi daily fu labs, B12/folate additional recs to follow Discussed with Dr. Castro. Thank you for this patient referral, we will follow. Samia Albarran N.P. Jul 04, 2017 15:25
[2017-07-04 16:00] VITALS: BP 133/83
[2017-07-04] MEDS ORDERED: D5NS 1000ml IV ONE (17:39)
[2017-07-04] MEDS ORDERED: Tubing IV Secondary IV ONE (17:39)
[2017-07-04] MEDS ORDERED: Docusate 100mg cap ORAL SCH (18:00)
[2017-07-04] MEDS: Lactulose 20gm/30ml UDC ORAL SCH (18:41)
--- NOTE | 2017-07-04 19:46 | Progress Note ---
DATE: 07/04/2017 SUBJECTIVE: The patient was in bed. No behavior issues. Very less agitated. Compliant with his medications. He refused the VRE stool culture yesterday. MENTAL STATUS EXAMINATION: Alert and oriented x3. Mood is irritable. Affect is constricted. Congruent with mood. Thought process is concrete. Thought content, no suicidal or homicidal ideations. ASSESSMENT: Schizophrenia, chronic paranoid type by history and depression. PLAN: We will continue current medication. Idalia Montanez M.D. DR: TREY JOB#: [id number] CC:
[2017-07-04 20:00] VITALS: BP 123/78
[2017-07-04] MEDS ORDERED: Miralax 17gm pkt ORAL SCH (21:00)
[2017-07-05] VITALS: BP 135/75
[2017-07-05 04:00] VITALS: BP 124/69
--- NOTE | 2017-07-05 05:17 | Consultation ---
DATE OF CONSULTATION: 07/04/2017 NOTE: POOR AUDIO INFECTIOUS DISEASES CONSULTATION CONSULTING PHYSICIAN: Rick Arvizu M.D. REFERRING PHYSICIAN: Brenda Martel M.D. REASON FOR CONSULTATION: Evaluation of the patient for leukocytosis , antibiotic management. HISTORY OF PRESENT ILLNESS: The patient is a 46-year-old old homeless with past medical history of schizophrenia, who was admitted due to abdominal pain. The patient overall is poor historian. At time of admission, the patient was found to have white blood cell of 18,000. CT of the abdomen showed possible enteritis. Infectious Diseases consultation has been requested for further evaluation of the patient and antibiotic management. PAST MEDICAL HISTORY: 1. History of hypertension. 2. COPD/asthma. 3. Smoker. 4. History of chronic constipation. 5. Osteoarthritis. 6. ? CAD/[place]. ALLERGIES: No known drug allergies. SOCIAL HISTORY: The patient is homeless. Smoker. FAMILY HISTORY: Noncontributory. REVIEW OF SYSTEMS: Unobtainable. The patient is confused. MEDICATIONS: Currently off of antibiotics. PHYSICAL EXAMINATION: VITAL SIGNS: Temperature 97.5 degrees, blood pressure 146/81, pulse 86, and respiratory rate 18. HEENT: No pale conjunctivae. No icterus. NECK: No lymphadenopathy. CHEST: Clear. HEART: S1 and S2. ABDOMEN: Soft and moderate tenderness in the epigastric area, however, the patient is not cooperative with the exam and appears to be confused. EXTREMITIES: No cyanosis at this time. NEUROLOGIC: Confused. LABORATORY AND DIAGNOSTIC DATA: White blood cell count at the time of admission , hemoglobin 13 and platelet 122. UA, 15 to 20 white blood cells. BUN 62 and creatinine 1.8. ALT and alkaline phosphatase are unremarkable. AST 19. Urine culture, no growth. CT of abdomen showed evidence of suspected enteritis, this also showed moderate stool retention. ASSESSMENT: The patient is a 46-year-old male with; 1. leukocytosis, most likely due to acute stress, no evidence of infection at this time. 2. No history of diarrhea, but the patient has history of constipation. 3. Pyuria, mostly likely no significance at this time. 4. Chronic kidney disease versus acute renal insufficiency, being followed by Nephrology. PLAN: 1. We will monitor the patient off of antibiotics. 2. Monitor urine culture. 3. Check CRP. 4. We will monitor chest x-ray. 5. Based on the patient's clinical course and labs, we will do further recommendation. Thank you, Dr. Martel, for allowing me to participate in the care of this patient. I will follow the patient with you during this hospitalization. Rick Arvizu M.D. DR: ASH JOB#: [id number] CC:
[2017-07-05] MEDS: D5NS 1,000 ML IV SCH (06:45)
[2017-07-05 08:00] VITALS: BP 152/96
[2017-07-05 08:38] LABS: HEMATOCRIT 36.6 % (42.0-52.0); HEMOGLOBIN 12.9 G/DL (14.2-18.0); MEAN CORPUSCULAR VOLUME 92 FL (80-99); PLATELET COUNT 132 K/UL (150-450); RED BLOOD COUNT 3.99 M/UL (4.70-6.10); RED CELL DISTRIBUTION WIDTH 11.6 % (11.6-14.8); WHITE BLOOD COUNT 9.7 K/UL (4.8-10.8)
[2017-07-05 08:54] LABS: ALANINE AMINOTRANSFERASE 38 U/L (12-78); ALBUMIN 2.7 G/DL (3.4-5.0); ALBUMIN/GLOBULIN RATIO 0.7 (1.0-2.7); ALKALINE PHOSPHATASE 92 U/L (46-116); ANION GAP 5 mmol/L (5-15); ASPARTATE AMINO TRANSFERASE 74 U/L (15-37); BILIRUBIN,TOTAL 0.4 MG/DL (0.2-1.0); BLOOD UREA NITROGEN 37 mg/dL (7-18); CALCIUM 8.8 MG/DL (8.5-10.1); CARBON DIOXIDE 33 MMOL/L (21-32); CHLORIDE 98 MMOL/L (98-107); CREATINE KINASE 237 U/L (26-308); PHOSPHORUS 3.1 MG/DL (2.5-4.9); POTASSIUM 3.7 MMOL/L (3.5-5.1); SODIUM 136 MMOL/L (136-145)
[2017-07-05] MEDS: Heparin 5000 units/ml inj SUBQ SCH ×2 (09:00→21:00)
[2017-07-05] MEDS: Tamsulosin 0.4mg cap ORAL SCH ×2 (09:03→17:24)
[2017-07-05] MEDS: Lactulose 20gm/30ml UDC ORAL SCH ×3 (09:03→17:23)
--- NOTE | 2017-07-05 11:15 | GI Progress Note ---
Assessment/Plan Problems: (1) Therapeutic opioid-induced constipation (OIC) ICD Codes: K59.03 - Drug induced constipation; T40.2X5A - Adverse effect of other opioids, initial encounter SNOMED: 000284469350286 (2) Psychiatric disorder ICD Codes: F99 - Mental disorder, not otherwise specified SNOMED: 48979416, 706178885 (3) Amphetamine abuse ICD Codes: F15.10 - Other stimulant abuse, uncomplicated SNOMED: 31507597 (4) Opiate dependence ICD Codes: F11.20 - Opioid dependence, uncomplicated SNOMED: 61797392 Qualifiers: Qualified Codes: F11.20 - Opioid dependence, uncomplicated (5) Acute constipation ICD Codes: K59.00 - Constipation, unspecified SNOMED: 963310929 Status: stable Status Narrative Discussed with Dr. Castro. Assessment/Plan utox positive for amphetamines symptomatic treatment regular diet lactulose TID + miralax ppi daily fu labs, B12/folate Subjective Gastrointestinal/Abdominal: Reports: abdominal pain Objective Last 24 Hour Vital Signs Date Time Temp Pulse Resp B/P (MAP) Pulse Ox O2 Delivery O2 Flow Rate FiO2 07/05/17 04:00 96.6 99 18 124/69 97 Nasal Cannula 2.0 96.6 07/05/17 04:00 106 07/05/17 00:00 97.0 104 19 135/75 95 Nasal Cannula 2.0 97.0 07/05/17 00:00 113 07/04/17 20:00 113 07/04/17 20:00 96.4 105 22 123/78 94 Nasal Cannula 2.0 96.4 07/04/17 19:30 96 Nasal Cannula 2.0 28 07/04/17 19:30 Nasal Cannula 2.0 28 07/04/17 16:00 97.9 124 20 133/83 97 Nasal Cannula 2.0 97.9 07/04/17 16:00 121 07/04/17 12:00 97.5 117 20 132/79 97 Nasal Cannula 2.0 97.5 07/04/17 12:00 117 Intake and Output 07/04/17 07/05/17 19:00 07:00 Intake Total 630 ml 285 ml Output Total 1200 ml 800 ml Balance -570 ml -515 ml Intake Oral 480 ml IV Total 150 ml 285 ml Output Urine Total 1200 ml 800 ml Laboratory Tests Test 07/05/17 08:00 White Blood Count 9.7 K/UL (4.8-10.8) # Red Blood Count 3.99 M/UL (4.70-6.10) L Hemoglobin 12.9 G/DL (14.2-18.0) L Hematocrit 36.6 % (42.0-52.0) L Mean Corpuscular Volume 92 FL (80-99) Mean Corpuscular Hemoglobin 32.3 PG (27.0-31.0) H Mean Corpuscular Hemoglobin Concent 35.2 G/DL (32.0-36.0) Red Cell Distribution Width 11.6 % (11.6-14.8) Platelet Count 132 K/UL (150-450) L Mean Platelet Volume 7.1 FL (6.5-10.1) Neutrophils (%) (Auto) % (45.0-75.0) Lymphocytes (%) (Auto) % (20.0-45.0) Monocytes (%) (Auto) % (1.0-10.0) Eosinophils (%) (Auto) % (0.0-3.0) Basophils (%) (Auto) % (0.0-2.0) Differential Total Cells Counted 100 Neutrophils % (Manual) 86 % (45-75) H Lymphocytes % (Manual) 10 % (20-45) L Monocytes % (Manual) 3 % (1-10) Eosinophils % (Manual) 1 % (0-3) Basophils % (Manual) 0 % (0-2) Band Neutrophils 0 % (0-8) Platelet Estimate Decreased L Platelet Morphology Normal Red Blood Cell Morphology Normal Sodium Level 136 MMOL/L (136-145) Potassium Level 3.7 MMOL/L (3.5-5.1) Chloride Level 98 MMOL/L (98-107) Carbon Dioxide Level 33 MMOL/L (21-32) H Anion Gap 5 mmol/L (5-15) Blood Urea Nitrogen 37 mg/dL (7-18) H Creatinine 1.0 MG/DL (0.55-1.30) Estimat Glomerular Filtration Rate > 60 mL/min (>60) Glucose Level 111 MG/DL (74-106) H Uric Acid 6.3 MG/DL (2.6-7.2) Calcium Level 8.8 MG/DL (8.5-10.1) Phosphorus Level 3.1 MG/DL (2.5-4.9) Magnesium Level 2.9 MG/DL (1.8-2.4) H Total Bilirubin 0.4 MG/DL (0.2-1.0) Aspartate Amino Transf (AST/SGOT) 74 U/L (15-37) H Alanine Aminotransferase (ALT/SGPT) 38 U/L (12-78) Alkaline Phosphatase 92 U/L (46-116) Total Creatine Kinase 237 U/L (26-308) Pro-B-Type Natriuretic Peptide 926 pg/mL (0-125) H Total Protein 6.7 G/DL (6.4-8.2) Albumin 2.7 G/DL (3.4-5.0) L Globulin 4.0 g/dL Albumin/Globulin Ratio 0.7 (1.0-2.7) L Height (Feet): 5 Height (Inches): 9.00 Weight (Pounds): 158 General Appearance: WD/WN, no apparent distress, alert, confused Cardiovascular: normal rate Respiratory/Chest: normal breath sounds, no respiratory distress Abdominal Exam: normal bowel sounds, non tender, soft Extremities: normal range of motion, non-tender Samia Albarran N.P. Jul 05, 2017 11:15
[2017-07-05 12:00] VITALS: BP 115/77
--- NOTE | 2017-07-05 12:12 | Infectious Diseases Prog Note ---
Assessment/Plan Assessment/Plan ASSESSMENT: The patient is a 46-year-old male with; leukocytosis, most likely due to acute stress history of diarrhea, CT of abdomen : ? enteritis, this also showed moderate stool retention ? UTI UCX Mixed growth 10 K Pyuria CRP ELEVATED RAMSEY: Improved HTN COPD/asthma. Smoker. History of chronic constipation. Osteoarthritis. ? CAD/[place], hx PLAN: Cont pt on Rocephin d# 2 ( empirically ) monitor chest x-ray. Nephrology. Blood Cx : P Subjective Constitutional: Denies: no symptoms, fever, chills, fatigue, anorexia, drenching sweats, other Allergies: Coded Allergies: No Known Allergies (Unverified , 01/20/17) Objective Vital Signs Last 24 Hour Vital Signs Date Time Temp Pulse Resp B/P (MAP) Pulse Ox O2 Delivery O2 Flow Rate FiO2 07/05/17 04:00 96.6 99 18 124/69 97 Nasal Cannula 2.0 96.6 07/05/17 04:00 106 07/05/17 00:00 97.0 104 19 135/75 95 Nasal Cannula 2.0 97.0 07/05/17 00:00 113 07/04/17 20:00 113 07/04/17 20:00 96.4 105 22 123/78 94 Nasal Cannula 2.0 96.4 07/04/17 19:30 96 Nasal Cannula 2.0 28 07/04/17 19:30 Nasal Cannula 2.0 28 07/04/17 16:00 97.9 124 20 133/83 97 Nasal Cannula 2.0 97.9 07/04/17 16:00 121 Height (Feet): 5 Height (Inches): 9.00 Weight (Pounds): 158 HEENT: mucous membranes moist Respiratory/Chest: lungs clear Cardiovascular: normal rate Abdomen: no organomegaly Microbiology Date/Time Source Procedure Growth Status 07/03/17 09:55 Nasal Nares MRSA Culture - Final NO METHICILLIN RESISTANT STAPH AUREUS... Complete 07/03/17 00:01 Urine,Clean Catch Urine Culture - Final Mixed Gram Positive Organism Complete Laboratory Tests Test 07/05/17 08:00 White Blood Count 9.7 K/UL (4.8-10.8) # Red Blood Count 3.99 M/UL (4.70-6.10) L Hemoglobin 12.9 G/DL (14.2-18.0) L Hematocrit 36.6 % (42.0-52.0) L Mean Corpuscular Volume 92 FL (80-99) Mean Corpuscular Hemoglobin 32.3 PG (27.0-31.0) H Mean Corpuscular Hemoglobin Concent 35.2 G/DL (32.0-36.0) Red Cell Distribution Width 11.6 % (11.6-14.8) Platelet Count 132 K/UL (150-450) L Mean Platelet Volume 7.1 FL (6.5-10.1) Neutrophils (%) (Auto) % (45.0-75.0) Lymphocytes (%) (Auto) % (20.0-45.0) Monocytes (%) (Auto) % (1.0-10.0) Eosinophils (%) (Auto) % (0.0-3.0) Basophils (%) (Auto) % (0.0-2.0) Differential Total Cells Counted 100 Neutrophils % (Manual) 86 % (45-75) H Lymphocytes % (Manual) 10 % (20-45) L Monocytes % (Manual) 3 % (1-10) Eosinophils % (Manual) 1 % (0-3) Basophils % (Manual) 0 % (0-2) Band Neutrophils 0 % (0-8) Platelet Estimate Decreased L Platelet Morphology Normal Red Blood Cell Morphology Normal Sodium Level 136 MMOL/L (136-145) Potassium Level 3.7 MMOL/L (3.5-5.1) Chloride Level 98 MMOL/L (98-107) Carbon Dioxide Level 33 MMOL/L (21-32) H Anion Gap 5 mmol/L (5-15) Blood Urea Nitrogen 37 mg/dL (7-18) H Creatinine 1.0 MG/DL (0.55-1.30) Estimat Glomerular Filtration Rate > 60 mL/min (>60) Glucose Level 111 MG/DL (74-106) H Uric Acid 6.3 MG/DL (2.6-7.2) Calcium Level 8.8 MG/DL (8.5-10.1) Phosphorus Level 3.1 MG/DL (2.5-4.9) Magnesium Level 2.9 MG/DL (1.8-2.4) H Total Bilirubin 0.4 MG/DL (0.2-1.0) Aspartate Amino Transf (AST/SGOT) 74 U/L (15-37) H Alanine Aminotransferase (ALT/SGPT) 38 U/L (12-78) Alkaline Phosphatase 92 U/L (46-116) Total Creatine Kinase 237 U/L (26-308) Pro-B-Type Natriuretic Peptide 926 pg/mL (0-125) H Total Protein 6.7 G/DL (6.4-8.2) Albumin 2.7 G/DL (3.4-5.0) L Globulin 4.0 g/dL Albumin/Globulin Ratio 0.7 (1.0-2.7) L Current Medications Medications (Trade) Dose Ordered Sig/Kayy Route PRN Reason Start Time Stop Time Status Last Admin Dose Admin Acetaminophen (Tylenol) 650 mg Q4H PRN ORAL T>100.5 07/03/17 10:30 08/02/17 10:29 Ceftriaxone Sodium 2 gm/ Sodium Chloride 55 ml @ 110 mls/hr Q24H IVPB 07/04/17 13:00 07/11/17 12:59 07/04/17 13:55 Clonazepam (KlonoPIN) 1 mg Q6H PRN ORAL ANXIETY 07/03/17 13:15 07/10/17 07:14 Clonidine HCl (Catapres Tab) 0.1 mg Q4H PRN ORAL SBP > 160mmHg 07/03/17 11:15 08/02/17 07:14 Dextrose (Dextrose 50%) STAT PRN IV Hypoglycemia 07/03/17 10:30 08/02/17 10:29 Dextrose/Sodium Chloride 1,000 ml @ 100 mls/hr Q10H IV 07/04/17 10:45 08/03/17 10:44 07/04/17 20:18 Heparin Sodium (Porcine) (Heparin 5000 units/ml) 5,000 units EVERY 12 HOURS SUBQ 07/03/17 21:00 08/02/17 08:59 07/04/17 20:20 Lactulose (Cephulac) 20 gm THREE TIMES A DAY ORAL 07/04/17 18:00 08/03/17 17:59 07/05/17 09:03 Lorazepam (Ativan 2mg/ml 1ml) 0.5 mg Q4H PRN IV Breakthrough agitation 07/03/17 11:15 07/10/17 07:14 07/05/17 05:03 Morphine Sulfate (Morphine Sulfate) 4 mg Q4H PRN IVP PAIN 4-10 07/03/17 15:00 07/10/17 14:59 07/04/17 18:44 Nitroglycerin (Ntg) 0.4 mg Q5M PRN SL Prn Chest Pain 07/03/17 10:15 08/02/17 09:14 07/03/17 10:27 Ondansetron HCl (Zofran) 4 mg Q6H PRN IVP Nausea & Vomiting 07/03/17 10:30 08/02/17 10:29 Pantoprazole (Protonix) 40 mg DAILY ORAL 07/05/17 09:00 08/02/17 10:44 07/05/17 09:03 Polyethylene Glycol (Miralax) 17 gm BEDTIME ORAL 07/04/17 21:00 08/03/17 20:59 07/04/17 20:19 Polyethylene Glycol (Miralax) 17 gm HSPRN PRN ORAL Constipation 07/03/17 21:00 08/02/17 20:59 Quetiapine Fumarate (SEROquel) 25 mg Q8HR ORAL 07/03/17 14:00 08/02/17 13:59 07/04/17 22:12 Tamsulosin HCl (Flomax) 0.4 mg BID ORAL 07/03/17 10:45 08/02/17 10:44 07/05/17 09:03 Zolpidem Tartrate (Ambien) 5 mg HSPRN PRN ORAL Insomnia 07/03/17 21:00 07/10/17 20:59 STEPH TOLBERT M.D. Jul 05, 2017 12:12
[2017-07-05] MEDS: cefTRIAXone 2 GM in NS 55 ML IVPB SCH (13:50)
[2017-07-05] MEDS: Morphine Sulfate 4mg/ml Inj IVP PRN ×2 (13:51→18:08)
--- NOTE | 2017-07-05 13:54 | Pulmonology Progress Note ---
Assessment/Plan Problems: (1) ARF (acute renal failure) (2) Psychosis (3) Acute constipation (4) Amphetamine abuse Assessment/Plan improving creatinine normal now All medications and treatment were reviewed med/surg dc when ok with taxation consultant. Subjective ROS Limited/Unobtainable: Yes Allergies: Coded Allergies: No Known Allergies (Unverified , 01/20/17) Objective Last 24 Hour Vital Signs Date Time Temp Pulse Resp B/P (MAP) Pulse Ox O2 Delivery O2 Flow Rate FiO2 07/05/17 12:00 97.3 91 20 115/77 93 Nasal Cannula 2.0 97.3 07/05/17 08:00 98.2 99 24 152/96 96 Nasal Cannula 2.0 98.2 07/05/17 04:00 96.6 99 18 124/69 97 Nasal Cannula 2.0 96.6 07/05/17 04:00 106 07/05/17 00:00 97.0 104 19 135/75 95 Nasal Cannula 2.0 97.0 07/05/17 00:00 113 07/04/17 20:00 113 07/04/17 20:00 96.4 105 22 123/78 94 Nasal Cannula 2.0 96.4 07/04/17 19:30 96 Nasal Cannula 2.0 28 07/04/17 19:30 Nasal Cannula 2.0 28 07/04/17 16:00 97.9 124 20 133/83 97 Nasal Cannula 2.0 97.9 07/04/17 16:00 121 Intake and Output 07/04/17 07/05/17 19:00 07:00 Intake Total 630 ml 285 ml Output Total 1200 ml 800 ml Balance -570 ml -515 ml Intake Oral 480 ml IV Total 150 ml 285 ml Output Urine Total 1200 ml 800 ml General Appearance: WD/WN, no acute distress HEENT: normocephalic, atraumatic Respiratory/Chest: chest wall non-tender, lungs clear, normal breath sounds, chest wall tender Cardiovascular: normal rate Abdomen: normal bowel sounds, soft, non tender, no scars Extremities: no cyanosis Skin: no rash Microbiology Date/Time Source Procedure Growth Status 07/03/17 09:55 Nasal Nares MRSA Culture - Final NO METHICILLIN RESISTANT STAPH AUREUS... Complete 07/03/17 00:01 Urine,Clean Catch Urine Culture - Final Mixed Gram Positive Organism Complete Laboratory Tests 07/05/17 08:00: White Blood Count 9.7#, Red Blood Count 3.99L, Hemoglobin 12.9L, Hematocrit 36.6L, Mean Corpuscular Volume 92, Mean Corpuscular Hemoglobin 32.3H, Mean Corpuscular Hemoglobin Concent 35.2, Red Cell Distribution Width 11.6, Platelet Count 132L, Mean Platelet Volume 7.1, Neutrophils (%) (Auto) , Lymphocytes (%) ( Auto) , Monocytes (%) (Auto) , Eosinophils (%) (Auto) , Basophils (%) (Auto) , Differential Total Cells Counted 100, Neutrophils % (Manual) 86H, Lymphocytes % (Manual) 10L, Monocytes % (Manual) 3, Eosinophils % (Manual) 1, Basophils % ( Manual) 0, Band Neutrophils 0, Platelet Estimate DecreasedL, Platelet Morphology Normal, Red Blood Cell Morphology Normal, Sodium Level 136, Potassium Level 3.7, Chloride Level 98, Carbon Dioxide Level 33H, Anion Gap 5, Blood Urea Nitrogen 37H, Creatinine 1.0, Estimat Glomerular Filtration Rate > 60 , Glucose Level 111H, Uric Acid 6.3, Calcium Level 8.8, Phosphorus Level 3.1, Magnesium Level 2.9H, Total Bilirubin 0.4, Aspartate Amino Transf (AST/SGOT) 74H , Alanine Aminotransferase (ALT/SGPT) 38, Alkaline Phosphatase 92, Total Creatine Kinase 237, Pro-B-Type Natriuretic Peptide 926H, Total Protein 6.7, Albumin 2.7L, Globulin 4.0, Albumin/Globulin Ratio 0.7L Current Medications Medications (Trade) Dose Ordered Sig/Kayy Route PRN Reason Start Time Stop Time Status Last Admin Dose Admin Acetaminophen (Tylenol) 650 mg Q4H PRN ORAL T>100.5 07/03/17 10:30 08/02/17 10:29 Ceftriaxone Sodium 2 gm/ Sodium Chloride 55 ml @ 110 mls/hr Q24H IVPB 07/04/17 13:00 07/11/17 12:59 07/04/17 13:55 Clonazepam (KlonoPIN) 1 mg Q6H PRN ORAL ANXIETY 07/03/17 13:15 07/10/17 07:14 Clonidine HCl (Catapres Tab) 0.1 mg Q4H PRN ORAL SBP > 160mmHg 07/03/17 11:15 08/02/17 07:14 Dextrose (Dextrose 50%) STAT PRN IV Hypoglycemia 07/03/17 10:30 08/02/17 10:29 Dextrose/Sodium Chloride 1,000 ml @ 100 mls/hr Q10H IV 07/04/17 10:45 08/03/17 10:44 07/04/17 20:18 Heparin Sodium (Porcine) (Heparin 5000 units/ml) 5,000 units EVERY 12 HOURS SUBQ 07/03/17 21:00 08/02/17 08:59 07/04/17 20:20 Lactulose (Cephulac) 20 gm THREE TIMES A DAY ORAL 07/04/17 18:00 08/03/17 17:59 07/05/17 09:03 Lorazepam (Ativan 2mg/ml 1ml) 0.5 mg Q4H PRN IV Breakthrough agitation 07/03/17 11:15 07/10/17 07:14 07/05/17 05:03 Morphine Sulfate (Morphine Sulfate) 4 mg Q4H PRN IVP PAIN 4-10 07/03/17 15:00 07/10/17 14:59 07/04/17 18:44 Nitroglycerin (Ntg) 0.4 mg Q5M PRN SL Prn Chest Pain 07/03/17 10:15 08/02/17 09:14 07/03/17 10:27 Ondansetron HCl (Zofran) 4 mg Q6H PRN IVP Nausea & Vomiting 07/03/17 10:30 08/02/17 10:29 Pantoprazole (Protonix) 40 mg DAILY ORAL 07/05/17 09:00 08/02/17 10:44 07/05/17 09:03 Polyethylene Glycol (Miralax) 17 gm BEDTIME ORAL 07/04/17 21:00 08/03/17 20:59 07/04/17 20:19 Polyethylene Glycol (Miralax) 17 gm HSPRN PRN ORAL Constipation 07/03/17 21:00 08/02/17 20:59 Risperidone (RisperDAL) 2 mg BEDTIME ORAL 07/05/17 21:00 08/04/17 20:59 Tamsulosin HCl (Flomax) 0.4 mg BID ORAL 07/03/17 10:45 08/02/17 10:44 07/05/17 09:03 Zolpidem Tartrate (Ambien) 5 mg HSPRN PRN ORAL Insomnia 07/03/17 21:00 07/10/17 20:59 YUVAL HATCH Jul 05, 2017 13:54
--- NOTE | 2017-07-05 15:00 | Nephrology Progress Note ---
Assessment/Plan Problem List: (1) ARF (acute renal failure) (2) UTI (urinary tract infection) (3) Psychiatric disorder Assessment Status: acute renal failure- Cr 5 now down to 1.0 ? CKD underlying High K resolved Rhabdo: High CK Plan Plan: stop Hydrate- [place]- 2D echo normal Ej Fx s/p Kayexelate po Flomax monitor renal parameters DC planning Subjective ROS Limited/Unobtainable: No Objective Objective Last 24 Hour Vital Signs Date Time Temp Pulse Resp B/P (MAP) Pulse Ox O2 Delivery O2 Flow Rate FiO2 07/05/17 12:00 97.3 91 20 115/77 93 Nasal Cannula 2.0 97.3 07/05/17 12:00 93 07/05/17 08:00 103 07/05/17 08:00 98.2 99 24 152/96 96 Nasal Cannula 2.0 98.2 07/05/17 04:00 96.6 99 18 124/69 97 Nasal Cannula 2.0 96.6 07/05/17 04:00 106 07/05/17 00:00 97.0 104 19 135/75 95 Nasal Cannula 2.0 97.0 07/05/17 00:00 113 07/04/17 20:00 113 07/04/17 20:00 96.4 105 22 123/78 94 Nasal Cannula 2.0 96.4 07/04/17 19:30 96 Nasal Cannula 2.0 28 07/04/17 19:30 Nasal Cannula 2.0 28 07/04/17 16:00 97.9 124 20 133/83 97 Nasal Cannula 2.0 97.9 07/04/17 16:00 121 Intake and Output 07/04/17 07/05/17 19:00 07:00 Intake Total 630 ml 285 ml Output Total 1200 ml 800 ml Balance -570 ml -515 ml Intake Oral 480 ml IV Total 150 ml 285 ml Output Urine Total 1200 ml 800 ml Laboratory Tests 07/05/17 08:00: White Blood Count 9.7#, Red Blood Count 3.99L, Hemoglobin 12.9L, Hematocrit 36.6L, Mean Corpuscular Volume 92, Mean Corpuscular Hemoglobin 32.3H, Mean Corpuscular Hemoglobin Concent 35.2, Red Cell Distribution Width 11.6, Platelet Count 132L, Mean Platelet Volume 7.1, Neutrophils (%) (Auto) , Lymphocytes (%) ( Auto) , Monocytes (%) (Auto) , Eosinophils (%) (Auto) , Basophils (%) (Auto) , Differential Total Cells Counted 100, Neutrophils % (Manual) 86H, Lymphocytes % (Manual) 10L, Monocytes % (Manual) 3, Eosinophils % (Manual) 1, Basophils % ( Manual) 0, Band Neutrophils 0, Platelet Estimate DecreasedL, Platelet Morphology Normal, Red Blood Cell Morphology Normal, Sodium Level 136, Potassium Level 3.7, Chloride Level 98, Carbon Dioxide Level 33H, Anion Gap 5, Blood Urea Nitrogen 37H, Creatinine 1.0, Estimat Glomerular Filtration Rate > 60 , Glucose Level 111H, Uric Acid 6.3, Calcium Level 8.8, Phosphorus Level 3.1, Magnesium Level 2.9H, Total Bilirubin 0.4, Aspartate Amino Transf (AST/SGOT) 74H , Alanine Aminotransferase (ALT/SGPT) 38, Alkaline Phosphatase 92, Total Creatine Kinase 237, Pro-B-Type Natriuretic Peptide 926H, Total Protein 6.7, Albumin 2.7L, Globulin 4.0, Albumin/Globulin Ratio 0.7L Height (Feet): 5 Height (Inches): 9.00 Weight (Pounds): 158 General Appearance: no apparent distress Cardiovascular: normal rate Respiratory/Chest: decreased breath sounds Abdomen: soft Objective no other change NOEMY MARK Jul 05, 2017 15:00
[2017-07-05 16:00] VITALS: BP 130/81
[2017-07-05 20:00] VITALS: BP 139/98
[2017-07-05] MEDS: Miralax 17gm pkt ORAL SCH (21:00)
[2017-07-05] MEDS ORDERED: Miralax 17gm pkt ORAL PRN (21:00)
--- NOTE | 2017-07-05 21:00 | Progress Note ---
DATE: 07/05/2017 SUBJECTIVE: The patient continues to be delusional and confused during the evaluation and disorganized, not able to be engaged during the evaluation, and is also agitated. MENTAL STATUS EXAMINATION: The patient is alert, oriented times self, place, and situation. Mood is agitated. Affect is constricted. Congruent with mood. Thought process is disorganized. Thought content, positive for delusions. Insight and judgment is impaired. ASSESSMENT: [place] I Schizophrenia, chronic paranoid type. [place] II Deferred. [place] III As above. [place] IV Low. [place] V 20. PLAN: 1. The patient will Seroquel. 2. Start the patient on risperidone 2 mg at bedtime. 3. Provide the patient with supportive therapy and reality orientation. Idalia Montanez M.D. DR: Jose JOB#: [id number] CC:
[2017-07-05] MEDS: LORazepam Inj 2mg/ml 1ml IV PRN (21:30)
[2017-07-05] MEDS: Zolpidem 5mg tab ORAL PRN (22:20)
[2017-07-06] VITALS (7 sets, daily range): BP systolic 113–129; BP diastolic 74–101
[2017-07-06] MEDS: Morphine Sulfate 4mg/ml Inj IVP PRN ×6 (01:07→22:34)
[2017-07-06] MEDS: LORazepam Inj 2mg/ml 1ml IV PRN ×3 (02:27→23:02)
[2017-07-06 06:54] LABS: HEMATOCRIT 40.3 % (42.0-52.0); MEAN CORPUSCULAR VOLUME 93 FL (80-99); PLATELET COUNT 137 K/UL (150-450); RED BLOOD COUNT 4.35 M/UL (4.70-6.10); RED CELL DISTRIBUTION WIDTH 11.6 % (11.6-14.8); WHITE BLOOD COUNT 7.7 K/UL (4.8-10.8)
[2017-07-06 07:36] LABS: ALANINE AMINOTRANSFERASE 29 U/L (12-78); ALBUMIN 2.4 G/DL (3.4-5.0); ALBUMIN/GLOBULIN RATIO 0.6 (1.0-2.7); ALKALINE PHOSPHATASE 103 U/L (46-116); ANION GAP 7 mmol/L (5-15); ASPARTATE AMINO TRANSFERASE 49 U/L (15-37); BILIRUBIN,TOTAL 0.5 MG/DL (0.2-1.0); BLOOD UREA NITROGEN 26 mg/dL (7-18); CALCIUM 8.8 MG/DL (8.5-10.1); CARBON DIOXIDE 31 MMOL/L (21-32); CHLORIDE 99 MMOL/L (98-107); PHOSPHORUS 3.8 MG/DL (2.5-4.9); POTASSIUM 4.3 MMOL/L (3.5-5.1); SODIUM 137 MMOL/L (136-145)
[2017-07-06] MEDS: Tamsulosin 0.4mg cap ORAL SCH ×2 (08:05→17:22)
[2017-07-06] MEDS: Lactulose 20gm/30ml UDC ORAL SCH ×3 (08:05→17:22)
[2017-07-06] MEDS: Heparin 5000 units/ml inj SUBQ SCH ×2 (08:05→21:00)
[2017-07-06] MEDS: Simethicone 80mg tab ORAL PRN ×2 (09:32→17:23)
--- NOTE | 2017-07-06 12:31 | Pulmonology Progress Note ---
Assessment/Plan Assessment/Plan ASSESSMENT ARF -resolved hyperkalemia-resolved rhabdo possible enteritis acute on chronic constipation schizophrenia, paranoid type HTN COPD Smoker Amphetamine abuse PLAN OF CARE MS floor s/p IVF ARF resolved s/p Kayexalate Rx K down to normal nephro follows monitor renal parameters, correct lytes as needed, avoid nephrotoxic abx, urine cx + mixed GPO, bloodcx negatiev, elev CRP CT A/P ? enteritis ID follows GI follows bowel regimen KUB due to distended abdomen pain management, will try to reduce PPI symptomatic Rx counseling services director on abstinence from street drugs counseling services director on abstinence from smoking declined nicotine patch O2 HHN prn ECHO with pEF DVT prophylaxis psych follows psych meds as per psych recs case discussed and evaluated by supervising physician Subjective Allergies: Coded Allergies: No Known Allergies (Unverified , 01/20/17) All Systems: reviewed and negative except above - c/o abdominal pain, abdomen distenden Subjective c/o abdominal pain renal parameters stable Objective Last 24 Hour Vital Signs Date Time Temp Pulse Resp B/P (MAP) Pulse Ox O2 Delivery O2 Flow Rate FiO2 07/06/17 11:36 98.4 91 22 129/77 94 98.4 07/06/17 08:21 97.9 106 22 126/101 94 97.9 07/06/17 06:31 98.2 07/06/17 03:42 98.2 98 20 113/77 94 Nasal Cannula 98.2 98 07/06/17 01:07 98.2 07/06/17 01:07 99.0 07/06/17 00:00 98.1 95 18 129/74 95 98.1 07/05/17 20:00 99.0 102 19 139/98 99 99.0 07/05/17 16:00 97.7 97 18 130/81 98 Room Air 97.7 Intake and Output 07/05/17 07/06/17 19:00 07:00 Intake Total 120 ml Output Total 700 ml Balance -580 ml Intake Oral 120 ml Output Urine Total 700 ml General Appearance: other - mild distress HEENT: normocephalic, atraumatic, anicteric Respiratory/Chest: lungs clear, no respiratory distress, no accessory muscle use Cardiovascular: no JVD Abdomen: normal bowel sounds - abdomen distended, hypoactive BS, tender to palpation Neurologic/Psychiatric: no motor/sensory deficits, alert Musculoskeletal: normal muscle bulk Microbiology Date/Time Source Procedure Growth Status 07/04/17 12:40 Blood Blood Culture - Preliminary NO GROWTH AFTER 24 HOURS Resulted 07/04/17 12:30 Blood Blood Culture - Preliminary NO GROWTH AFTER 24 HOURS Resulted Laboratory Tests 07/06/17 05:30: White Blood Count 7.7, Red Blood Count 4.35L, Hemoglobin 14.0L, Hematocrit 40.3L , Mean Corpuscular Volume 93, Mean Corpuscular Hemoglobin 32.1H, Mean Corpuscular Hemoglobin Concent 34.7, Red Cell Distribution Width 11.6, Platelet Count 137L, Mean Platelet Volume 6.4L, Neutrophils (%) (Auto) , Lymphocytes (%) (Auto) , Monocytes (%) (Auto) , Eosinophils (%) (Auto) , Basophils (%) (Auto) , Differential Total Cells Counted 100, Neutrophils % (Manual) 85H, Lymphocytes % (Manual) 9L, Monocytes % (Manual) 2, Eosinophils % (Manual) 0, Basophils % ( Manual) 0, Band Neutrophils 4, Platelet Estimate DecreasedL, Platelet Morphology Normal, Red Blood Cell Morphology Normal, Sodium Level 137, Potassium Level 4.3, Chloride Level 99, Carbon Dioxide Level 31, Anion Gap 7, Blood Urea Nitrogen 26H, Creatinine 1.0, Estimat Glomerular Filtration Rate > 60 , Glucose Level 94, Calcium Level 8.8, Phosphorus Level 3.8, Magnesium Level 2.4 , Total Bilirubin 0.5, Aspartate Amino Transf (AST/SGOT) 49H, Alanine Aminotransferase (ALT/SGPT) 29, Alkaline Phosphatase 103, Total Protein 6.2L, Albumin 2.4L, Globulin 3.8, Albumin/Globulin Ratio 0.6L, Vitamin B12 Level 769, Folate 10.6 Current Medications Medications (Trade) Dose Ordered Sig/Kayy Route PRN Reason Start Time Stop Time Status Last Admin Dose Admin Acetaminophen (Tylenol) 650 mg Q4H PRN ORAL T>100.5 07/05/17 17:30 08/02/17 17:29 Ceftriaxone Sodium 2 gm/ Sodium Chloride 55 ml @ 110 mls/hr Q24H IVPB 07/06/17 13:00 07/11/17 12:59 Clonazepam (KlonoPIN) 1 mg Q6H PRN ORAL ANXIETY 07/05/17 17:30 07/10/17 17:29 3/2/18 08:05 Clonidine HCl (Catapres Tab) 0.1 mg Q4H PRN ORAL SBP > 160mmHg 07/05/17 17:30 08/02/17 17:29 Dextrose (Dextrose 50%) STAT PRN IV Hypoglycemia 07/05/17 17:30 08/04/17 17:29 Heparin Sodium (Porcine) (Heparin 5000 units/ml) 5,000 units EVERY 12 HOURS SUBQ 07/05/17 21:00 08/02/17 08:59 Lactulose (Cephulac) 20 gm THREE TIMES A DAY ORAL 07/05/17 18:00 08/03/17 17:59 07/06/17 08:05 Lorazepam (Ativan 2mg/ml 1ml) 0.5 mg Q4H PRN IV Breakthrough agitation 07/05/17 17:00 07/10/17 16:59 07/06/17 02:27 Morphine Sulfate (Morphine Sulfate) 4 mg Q4H PRN IVP PAIN 4-10 07/05/17 17:30 07/10/17 17:29 07/06/17 10:48 Nitroglycerin (Ntg) 0.4 mg Q5MIN PRN SL Prn Chest Pain 07/05/17 16:45 08/04/17 16:44 Ondansetron HCl (Zofran) 4 mg Q6H PRN IVP Nausea & Vomiting 07/05/17 17:00 08/02/17 16:59 07/06/17 06:36 Pantoprazole (Protonix) 40 mg DAILY ORAL 07/06/17 09:00 08/02/17 10:44 07/06/17 08:05 Polyethylene Glycol (Miralax) 17 gm BEDTIME ORAL 07/05/17 21:00 08/03/17 20:59 Polyethylene Glycol (Miralax) 17 gm HSPRN PRN ORAL Constipation 07/05/17 21:00 08/02/17 20:59 Risperidone (RisperDAL) 2 mg BEDTIME ORAL 07/05/17 21:00 08/04/17 20:59 07/05/17 20:47 Simethicone (Mylicon) 80 mg Q6HR PRN ORAL Abdominal cramps 07/06/17 09:00 08/05/17 08:59 07/06/17 09:32 Tamsulosin HCl (Flomax) 0.4 mg BID ORAL 07/05/17 18:00 08/02/17 10:44 07/06/17 08:05 Zolpidem Tartrate (Ambien) 5 mg HSPRN PRN ORAL Insomnia 07/05/17 21:00 07/10/17 20:59 07/05/17 22:20 [facility] Jul 06, 2017 12:31
[2017-07-06] MEDS ORDERED: cefTRIAXone 2 GM in NS 55 ML IVPB SCH (13:00)
--- NOTE | 2017-07-06 13:57 | Diagnostic Imaging Report ---
Indication: Abdominal pain Comparison: 07/02/2017 Single view of the abdomen obtained Findings: CT of retention again noted within somewhat distended colon. Suggestion of dilatation of the stomach. Relative absence of small bowel gas. IMPRESSION: No significant change. Moderate stool
--- NOTE | 2017-07-06 14:04 | GI Progress Note ---
Assessment/Plan Problems: (1) Therapeutic opioid-induced constipation (OIC) ICD Codes: K59.03 - Drug induced constipation; T40.2X5A - Adverse effect of other opioids, initial encounter SNOMED: 542453560192917 (2) Psychiatric disorder ICD Codes: F99 - Mental disorder, not otherwise specified SNOMED: 87535095, 855315860 (3) Amphetamine abuse ICD Codes: F15.10 - Other stimulant abuse, uncomplicated SNOMED: 08216078 (4) Opiate dependence ICD Codes: F11.20 - Opioid dependence, uncomplicated SNOMED: 29293022 Qualifiers: Qualified Codes: F11.20 - Opioid dependence, uncomplicated (5) Acute constipation ICD Codes: K59.00 - Constipation, unspecified SNOMED: 679921647 Status: stable Status Narrative Discussed with Dr. Castro Assessment/Plan KUB reviewed >> moderate stool utox positive for amphetamines symptomatic treatment decrease opioid use regular diet colace, lactulose TID + miralax ppi daily fu labs Subjective Gastrointestinal/Abdominal: Reports: abdomen distended Subjective abdominal pain, distention and tenderness Objective Last 24 Hour Vital Signs Date Time Temp Pulse Resp B/P (MAP) Pulse Ox O2 Delivery O2 Flow Rate FiO2 07/06/17 11:36 98.4 91 22 129/77 94 98.4 07/06/17 08:21 97.9 106 22 126/101 94 97.9 07/06/17 06:31 98.2 07/06/17 03:42 98.2 98 20 113/77 94 Nasal Cannula 98.2 98 07/06/17 01:07 98.2 07/06/17 01:07 99.0 07/06/17 00:00 98.1 95 18 129/74 95 98.1 07/05/17 20:00 99.0 102 19 139/98 99 99.0 07/05/17 16:00 97.7 97 18 130/81 98 Room Air 97.7 Intake and Output 07/05/17 07/06/17 19:00 07:00 Intake Total 120 ml Output Total 700 ml Balance -580 ml Intake Oral 120 ml Output Urine Total 700 ml Laboratory Tests Test 07/06/17 05:30 White Blood Count 7.7 K/UL (4.8-10.8) Red Blood Count 4.35 M/UL (4.70-6.10) L Hemoglobin 14.0 G/DL (14.2-18.0) L Hematocrit 40.3 % (42.0-52.0) L Mean Corpuscular Volume 93 FL (80-99) Mean Corpuscular Hemoglobin 32.1 PG (27.0-31.0) H Mean Corpuscular Hemoglobin Concent 34.7 G/DL (32.0-36.0) Red Cell Distribution Width 11.6 % (11.6-14.8) Platelet Count 137 K/UL (150-450) L Mean Platelet Volume 6.4 FL (6.5-10.1) L Neutrophils (%) (Auto) % (45.0-75.0) Lymphocytes (%) (Auto) % (20.0-45.0) Monocytes (%) (Auto) % (1.0-10.0) Eosinophils (%) (Auto) % (0.0-3.0) Basophils (%) (Auto) % (0.0-2.0) Differential Total Cells Counted 100 Neutrophils % (Manual) 85 % (45-75) H Lymphocytes % (Manual) 9 % (20-45) L Monocytes % (Manual) 2 % (1-10) Eosinophils % (Manual) 0 % (0-3) Basophils % (Manual) 0 % (0-2) Band Neutrophils 4 % (0-8) Platelet Estimate Decreased L Platelet Morphology Normal Red Blood Cell Morphology Normal Sodium Level 137 MMOL/L (136-145) Potassium Level 4.3 MMOL/L (3.5-5.1) Chloride Level 99 MMOL/L (98-107) Carbon Dioxide Level 31 MMOL/L (21-32) Anion Gap 7 mmol/L (5-15) Blood Urea Nitrogen 26 mg/dL (7-18) H Creatinine 1.0 MG/DL (0.55-1.30) Estimat Glomerular Filtration Rate > 60 mL/min (>60) Glucose Level 94 MG/DL (74-106) Calcium Level 8.8 MG/DL (8.5-10.1) Phosphorus Level 3.8 MG/DL (2.5-4.9) Magnesium Level 2.4 MG/DL (1.8-2.4) Total Bilirubin 0.5 MG/DL (0.2-1.0) Aspartate Amino Transf (AST/SGOT) 49 U/L (15-37) H Alanine Aminotransferase (ALT/SGPT) 29 U/L (12-78) Alkaline Phosphatase 103 U/L (46-116) Total Protein 6.2 G/DL (6.4-8.2) L Albumin 2.4 G/DL (3.4-5.0) L Globulin 3.8 g/dL Albumin/Globulin Ratio 0.6 (1.0-2.7) L Vitamin B12 Level 769 PG/ML (193-986) Folate 10.6 NG/ML (8.6-58.9) Height (Feet): 5 Height (Inches): 9.00 Weight (Pounds): 158 General Appearance: WD/WN, no apparent distress, alert Cardiovascular: normal rate Respiratory/Chest: normal breath sounds, no respiratory distress Abdominal Exam: normal bowel sounds, non tender, soft Extremities: normal range of motion, non-tender Samia Albarran N.P. Jul 06, 2017 14:04
[2017-07-06] MEDS ORDERED: Fleet's Enema 133ml RECTAL ONE (14:15)
--- NOTE | 2017-07-06 15:02 | Infectious Diseases Prog Note ---
Assessment/Plan Assessment/Plan ASSESSMENT: The patient is a 46-year-old male with; leukocytosis, SP most likely due to acute stress history of diarrhea, CT of abdomen : ? enteritis, this also showed moderate stool retention ? UTI UCX Mixed growth 10 K Pyuria CRP ELEVATED ? etio infection RAMSEY: Improved HTN COPD/asthma. Smoker. History of chronic constipation. Osteoarthritis. ? CAD/TN, hx PLAN: Cont pt on Rocephin d# 3 ( empirically ) may stop Ab Rx soon if pt is stable and Cx are neg monitor chest x-ray. Nephrology, following Blood Cx : P Subjective Constitutional: Denies: no symptoms, fever, chills, fatigue, anorexia, drenching sweats, other Allergies: Coded Allergies: No Known Allergies (Unverified , 01/20/17) Objective Vital Signs Last 24 Hour Vital Signs Date Time Temp Pulse Resp B/P (MAP) Pulse Ox O2 Delivery O2 Flow Rate FiO2 07/06/17 11:36 98.4 91 22 129/77 94 98.4 07/06/17 08:21 97.9 106 22 126/101 94 97.9 07/06/17 06:31 98.2 07/06/17 03:42 98.2 98 20 113/77 94 Nasal Cannula 98.2 98 07/06/17 01:07 98.2 07/06/17 01:07 99.0 07/06/17 00:00 98.1 95 18 129/74 95 98.1 07/05/17 20:00 99.0 102 19 139/98 99 99.0 07/05/17 16:00 97.7 97 18 130/81 98 Room Air 97.7 Height (Feet): 5 Height (Inches): 9.00 Weight (Pounds): 158 HEENT: anicteric Respiratory/Chest: no respiratory distress Cardiovascular: regular rhythm Abdomen: no organomegaly Microbiology Date/Time Source Procedure Growth Status 07/04/17 12:40 Blood Blood Culture - Preliminary NO GROWTH AFTER 24 HOURS Resulted 07/04/17 12:30 Blood Blood Culture - Preliminary NO GROWTH AFTER 24 HOURS Resulted Laboratory Tests Test 07/06/17 05:30 White Blood Count 7.7 K/UL (4.8-10.8) Red Blood Count 4.35 M/UL (4.70-6.10) L Hemoglobin 14.0 G/DL (14.2-18.0) L Hematocrit 40.3 % (42.0-52.0) L Mean Corpuscular Volume 93 FL (80-99) Mean Corpuscular Hemoglobin 32.1 PG (27.0-31.0) H Mean Corpuscular Hemoglobin Concent 34.7 G/DL (32.0-36.0) Red Cell Distribution Width 11.6 % (11.6-14.8) Platelet Count 137 K/UL (150-450) L Mean Platelet Volume 6.4 FL (6.5-10.1) L Neutrophils (%) (Auto) % (45.0-75.0) Lymphocytes (%) (Auto) % (20.0-45.0) Monocytes (%) (Auto) % (1.0-10.0) Eosinophils (%) (Auto) % (0.0-3.0) Basophils (%) (Auto) % (0.0-2.0) Differential Total Cells Counted 100 Neutrophils % (Manual) 85 % (45-75) H Lymphocytes % (Manual) 9 % (20-45) L Monocytes % (Manual) 2 % (1-10) Eosinophils % (Manual) 0 % (0-3) Basophils % (Manual) 0 % (0-2) Band Neutrophils 4 % (0-8) Platelet Estimate Decreased L Platelet Morphology Normal Red Blood Cell Morphology Normal Sodium Level 137 MMOL/L (136-145) Potassium Level 4.3 MMOL/L (3.5-5.1) Chloride Level 99 MMOL/L (98-107) Carbon Dioxide Level 31 MMOL/L (21-32) Anion Gap 7 mmol/L (5-15) Blood Urea Nitrogen 26 mg/dL (7-18) H Creatinine 1.0 MG/DL (0.55-1.30) Estimat Glomerular Filtration Rate > 60 mL/min (>60) Glucose Level 94 MG/DL (74-106) Calcium Level 8.8 MG/DL (8.5-10.1) Phosphorus Level 3.8 MG/DL (2.5-4.9) Magnesium Level 2.4 MG/DL (1.8-2.4) Total Bilirubin 0.5 MG/DL (0.2-1.0) Aspartate Amino Transf (AST/SGOT) 49 U/L (15-37) H Alanine Aminotransferase (ALT/SGPT) 29 U/L (12-78) Alkaline Phosphatase 103 U/L (46-116) Total Protein 6.2 G/DL (6.4-8.2) L Albumin 2.4 G/DL (3.4-5.0) L Globulin 3.8 g/dL Albumin/Globulin Ratio 0.6 (1.0-2.7) L Vitamin B12 Level 769 PG/ML (193-986) Folate 10.6 NG/ML (8.6-58.9) Current Medications Medications (Trade) Dose Ordered Sig/Kayy Route PRN Reason Start Time Stop Time Status Last Admin Dose Admin Acetaminophen (Tylenol) 650 mg Q4H PRN ORAL T>100.5 07/05/17 17:30 08/02/17 17:29 Ceftriaxone Sodium 2 gm/ Sodium Chloride 55 ml @ 110 mls/hr Q24H IVPB 07/06/17 13:00 07/11/17 12:59 07/06/17 13:08 Clonazepam (KlonoPIN) 1 mg Q6H PRN ORAL ANXIETY 07/05/17 17:30 07/10/17 17:29 07/06/17 08:05 Clonidine HCl (Catapres Tab) 0.1 mg Q4H PRN ORAL SBP > 160mmHg 07/05/17 17:30 08/02/17 17:29 Dextrose (Dextrose 50%) STAT PRN IV Hypoglycemia 07/05/17 17:30 08/04/17 17:29 Docusate Sodium (Colace) 100 mg THREE TIMES A DAY ORAL 07/06/17 18:00 08/05/17 17:59 Heparin Sodium (Porcine) (Heparin 5000 units/ml) 5,000 units EVERY 12 HOURS SUBQ 07/05/17 21:00 08/02/17 08:59 Lactulose (Cephulac) 20 gm THREE TIMES A DAY ORAL 07/05/17 18:00 08/03/17 17:59 07/06/17 13:08 Lorazepam (Ativan 2mg/ml 1ml) 0.5 mg Q4H PRN IV Breakthrough agitation 07/05/17 17:00 07/10/17 16:59 07/06/17 02:27 Morphine Sulfate (Morphine Sulfate) 4 mg Q4H PRN IVP PAIN 4-10 07/05/17 17:30 07/10/17 17:29 07/06/17 10:48 Nitroglycerin (Ntg) 0.4 mg Q5MIN PRN SL Prn Chest Pain 07/05/17 16:45 08/04/17 16:44 Ondansetron HCl (Zofran) 4 mg Q6H PRN IVP Nausea & Vomiting 07/05/17 17:00 08/02/17 16:59 07/06/17 13:08 Pantoprazole (Protonix) 40 mg DAILY ORAL 07/06/17 09:00 08/02/17 10:44 07/06/17 08:05 Polyethylene Glycol (Miralax) 17 gm BEDTIME ORAL 07/05/17 21:00 08/03/17 20:59 Polyethylene Glycol (Miralax) 17 gm HSPRN PRN ORAL Constipation 07/05/17 21:00 08/02/17 20:59 Risperidone (RisperDAL) 2 mg BEDTIME ORAL 07/05/17 21:00 08/04/17 20:59 07/05/17 20:47 Simethicone (Mylicon) 80 mg Q6HR PRN ORAL Abdominal cramps 07/06/17 09:00 08/05/17 08:59 07/06/17 09:32 Tamsulosin HCl (Flomax) 0.4 mg BID ORAL 07/05/17 18:00 08/02/17 10:44 07/06/17 08:05 Zolpidem Tartrate (Ambien) 5 mg HSPRN PRN ORAL Insomnia 07/05/17 21:00 07/10/17 20:59 07/05/17 22:20 STEPH TOLBERT M.D. Jul 06, 2017 15:02
[2017-07-06] MEDS ORDERED: D5NS 1000ml IV ONE (15:05)
--- NOTE | 2017-07-06 16:36 | Nephrology Progress Note ---
Assessment/Plan Problem List: (1) ARF (acute renal failure) (2) UTI (urinary tract infection) (3) Psychiatric disorder Assessment Status: acute renal failure- Cr 5 now down to 1.0 ? CKD underlying High K resolved Rhabdo: High CK Plan Plan: stop Hydrate- Dickens- 2D echo normal Ej Fx s/p Kayexelate po Flomax monitor renal parameters DC planning Subjective ROS Limited/Unobtainable: No Objective Objective Last 24 Hour Vital Signs Date Time Temp Pulse Resp B/P (MAP) Pulse Ox O2 Delivery O2 Flow Rate FiO2 07/06/17 16:06 97.8 107 20 119/85 94 97.8 07/06/17 11:36 98.4 91 22 129/77 94 98.4 07/06/17 08:21 97.9 106 22 126/101 94 97.9 07/06/17 06:31 98.2 07/06/17 03:42 98.2 98 20 113/77 94 Nasal Cannula 98.2 98 07/06/17 01:07 98.2 07/06/17 01:07 99.0 07/06/17 00:00 98.1 95 18 129/74 95 98.1 07/05/17 20:00 99.0 102 19 139/98 99 99.0 Intake and Output 07/05/17 07/06/17 19:00 07:00 Intake Total 120 ml Output Total 700 ml Balance -580 ml Intake Oral 120 ml Output Urine Total 700 ml Laboratory Tests 07/06/17 05:30: White Blood Count 7.7, Red Blood Count 4.35L, Hemoglobin 14.0L, Hematocrit 40.3L , Mean Corpuscular Volume 93, Mean Corpuscular Hemoglobin 32.1H, Mean Corpuscular Hemoglobin Concent 34.7, Red Cell Distribution Width 11.6, Platelet Count 137L, Mean Platelet Volume 6.4L, Neutrophils (%) (Auto) , Lymphocytes (%) (Auto) , Monocytes (%) (Auto) , Eosinophils (%) (Auto) , Basophils (%) (Auto) , Differential Total Cells Counted 100, Neutrophils % (Manual) 85H, Lymphocytes % (Manual) 9L, Monocytes % (Manual) 2, Eosinophils % (Manual) 0, Basophils % ( Manual) 0, Band Neutrophils 4, Platelet Estimate DecreasedL, Platelet Morphology Normal, Red Blood Cell Morphology Normal, Sodium Level 137, Potassium Level 4.3, Chloride Level 99, Carbon Dioxide Level 31, Anion Gap 7, Blood Urea Nitrogen 26H, Creatinine 1.0, Estimat Glomerular Filtration Rate > 60 , Glucose Level 94, Calcium Level 8.8, Phosphorus Level 3.8, Magnesium Level 2.4 , Total Bilirubin 0.5, Aspartate Amino Transf (AST/SGOT) 49H, Alanine Aminotransferase (ALT/SGPT) 29, Alkaline Phosphatase 103, Total Protein 6.2L, Albumin 2.4L, Globulin 3.8, Albumin/Globulin Ratio 0.6L, Vitamin B12 Level 769, Folate 10.6 Height (Feet): 5 Height (Inches): 9.00 Weight (Pounds): 158 General Appearance: no apparent distress Respiratory/Chest: decreased breath sounds Abdomen: distended Objective no other change NOEMY MARK Jul 06, 2017 16:36
[2017-07-06] MEDS ORDERED: Docusate 100mg cap ORAL SCH (18:00)
[2017-07-06] MEDS ORDERED: Nitroglycerin Subl 0.4mg tab SL PRN ×3 (19:15→23:20)
[2017-07-06] MEDS: Nitroglycerin Subl 0.4mg tab SL PRN ×2 (19:53→20:10)
[2017-07-06] MEDS: Miralax 17gm pkt ORAL SCH (21:00)
--- NOTE | 2017-07-06 22:15 | Progress Note ---
DATE: 07/06/2017 SUBJECTIVE: The patient is yelling, screaming, not cooperative, still disorganized, and delusional. Not engaged during the evaluation. Complaining of back pain and has med seeking behavior. MENTAL STATUS EXAMINATION: The patient is alert and oriented times self and place. Mood is irritable. Affect is constricted, congruent with mood. Thought process is concrete. Thought content, no suicidal or homicidal ideation. Positive for delusions. Insight and judgment non-existent. ASSESSMENT: Schizophrenia. PLAN: We will increase the risperidone to 3 mg at bedtime. Recommend to change the pain medication to long-acting pain medications. Idalia Montanez M.D. DR: MORGAN JOB#: [id number] CC:
[2017-07-06] MEDS: Zolpidem 5mg tab ORAL PRN (23:02)
[2017-07-07] VITALS: BP 130/90
[2017-07-07] MEDS ORDERED: Simethicone 80mg tab ORAL PRN
[2017-07-07 04:00] VITALS: BP 133/87
[2017-07-07] MEDS: Morphine Sulfate 4mg/ml Inj IVP PRN ×4 (04:56→20:27)
[2017-07-07 07:32] LABS: HEMOGLOBIN 13.1 G/DL (14.2-18.0); MEAN CORPUSCULAR VOLUME 93 FL (80-99); PLATELET COUNT 125 K/UL (150-450); RED CELL DISTRIBUTION WIDTH 11.8 % (11.6-14.8); WHITE BLOOD COUNT 12.1 K/UL (4.8-10.8)
[2017-07-07 07:58] LABS: ALANINE AMINOTRANSFERASE 22 U/L (12-78); ALBUMIN 1.9 G/DL (3.4-5.0); ALBUMIN/GLOBULIN RATIO 0.6 (1.0-2.7); ALKALINE PHOSPHATASE 97 U/L (46-116); ANION GAP 8 mmol/L (5-15); ASPARTATE AMINO TRANSFERASE 34 U/L (15-37); BILIRUBIN,TOTAL 0.6 MG/DL (0.2-1.0); BLOOD UREA NITROGEN 22 mg/dL (7-18); CALCIUM 7.9 MG/DL (8.5-10.1); CARBON DIOXIDE 28 MMOL/L (21-32); CHLORIDE 95 MMOL/L (98-107); POTASSIUM 4.3 MMOL/L (3.5-5.1); SODIUM 131 MMOL/L (136-145)
[2017-07-07 08:00] VITALS: BP 157/79
--- NOTE | 2017-07-07 08:11 | Pulmonology Progress Note ---
Assessment/Plan Assessment/Plan ASSESSMENT pleuritic chest pain r/o PE ARF -resolved hyperkalemia-resolved rhabdo-resolved possible enteritis acute on chronic constipation ? colon Cancer schizophrenia, paranoid type HTN COPD Smoker Amphetamine abuse PLAN OF CARE tele troponin x 2 negative, no acute ischemic changes on ECF/tele , thus no evidence of acute TN cardio eval appreciated O2 HHN prn Venous Duplex BLE stat CTA chest ECHO with pEF DVT prophylaxis s/p IVF ARF resolved s/p Kayexalate Rx K down to normal nephro follows monitor renal parameters, correct lytes as needed, avoid nephrotoxic abx, urine cx + mixed GPO, blood cx negative, elev CRP CT A/P ? enteritis, no evidence of mass, but done without contrast ? CT A/P with contrast-per GI, follows try to get [facility] info if able ID follows GI follows bowel regimen KUB + constipation, no obstruction pain management, will try to reduce PPI symptomatic Rx director of group counseling program on abstinence from street drugs director of group counseling program on abstinence from smoking declined nicotine patch psych follows psych meds as per psych recs case discussed and evaluated by supervising physician Subjective Allergies: Coded Allergies: No Known Allergies (Unverified , 01/20/17) Subjective last night had trouble breathing and c/o chest pain, transferred to tele first troponin negative SR on tele mild leukocytosis this am per patient CP described as pleuritic x 2 weeks ? colon ca dx in [facility] reported abdominal painhad BM Objective Last 24 Hour Vital Signs Date Time Temp Pulse Resp B/P (MAP) Pulse Ox O2 Delivery O2 Flow Rate FiO2 07/07/17 04:00 130 07/07/17 04:00 97.9 130 22 133/87 94 Nasal Cannula 2.0 97.9 07/07/17 00:00 98.4 135 20 130/90 93 Nasal Cannula 2.0 98.4 07/07/17 00:00 136 07/06/17 20:10 119/81 07/06/17 20:00 99.3 138 22 125/90 90 Room Air 99.3 07/06/17 19:53 109/78 07/06/17 19:20 Nasal Cannula 2.0 28 07/06/17 19:20 95 Nasal Cannula 2.0 28 07/06/17 18:57 135 22 117/78 94 Nasal Cannula 2.0 07/06/17 16:06 97.8 107 20 119/85 94 97.8 07/06/17 11:36 98.4 91 22 129/77 94 98.4 07/06/17 08:21 97.9 106 22 126/101 94 97.9 Intake and Output 07/06/17 07/07/17 19:00 07:00 Intake Total 720 ml Output Total 1400 ml 1000 ml Balance -680 ml -1000 ml Intake Oral 720 ml Output Urine Total 1400 ml 1000 ml # Voids 1 # Bowel Movements 3 1 Objective General Appearance: mild distress HEENT: normocephalic, atraumatic, anicteric Respiratory/Chest: lungs clear, no respiratory distress, no accessory muscle use Cardiovascular: no JVD Abdomen: hypoactive bowel sounds, abdomen distended, tender to palpation, hard Neurologic/Psychiatric: no motor/sensory deficits, alert, awake, responsive Musculoskeletal: normal muscle bulk Microbiology Date/Time Source Procedure Growth Status 07/04/17 12:40 Blood Blood Culture - Preliminary NO GROWTH AFTER 24 HOURS Resulted 07/04/17 12:30 Blood Blood Culture - Preliminary NO GROWTH AFTER 24 HOURS Resulted Laboratory Tests 07/06/17 19:25: Troponin I 0.000 07/07/17 07:15: Troponin I [Pending], White Blood Count 12.1#H, Red Blood Count 4.00L, Hemoglobin 13.1L, Hematocrit 37.0L, Mean Corpuscular Volume 93, Mean Corpuscular Hemoglobin 32.8H, Mean Corpuscular Hemoglobin Concent 35.5, Red Cell Distribution Width 11.8, Platelet Count 125L, Mean Platelet Volume 6.2L, Neutrophils (%) (Auto) , Lymphocytes (%) (Auto) , Monocytes (%) (Auto) , Eosinophils (%) (Auto) , Basophils (%) (Auto) , Neutrophils % (Manual) [Pending] , Lymphocytes % (Manual) [Pending], Platelet Estimate [Pending], Platelet Morphology [Pending], Sodium Level 131L, Potassium Level 4.3, Chloride Level 95L , Carbon Dioxide Level 28, Anion Gap 8, Blood Urea Nitrogen 22H, Creatinine 1.0 , Estimat Glomerular Filtration Rate > 60, Glucose Level 85, Calcium Level 7.9L , Total Bilirubin 0.6, Aspartate Amino Transf (AST/SGOT) 34, Alanine Aminotransferase (ALT/SGPT) 22, Alkaline Phosphatase 97, C-Reactive Protein, Quantitative 29.3H, Total Protein 5.3L, Albumin 1.9L, Globulin 3.4, Albumin/ Globulin Ratio 0.6L Current Medications Medications (Trade) Dose Ordered Sig/Kayy Route PRN Reason Start Time Stop Time Status Last Admin Dose Admin Acetaminophen (Tylenol) 650 mg Q4H PRN ORAL T>100.5 07/07/17 01:30 08/02/17 17:29 Ceftriaxone Sodium 2 gm/ Sodium Chloride 55 ml @ 110 mls/hr Q24H IVPB 07/07/17 13:00 07/11/17 12:59 Clonazepam (KlonoPIN) 1 mg Q6H PRN ORAL ANXIETY 07/06/17 23:30 07/10/17 17:29 07/07/17 04:55 Clonidine HCl (Catapres Tab) 0.1 mg Q4H PRN ORAL SBP > 160mmHg 07/07/17 01:30 08/02/17 17:29 Dextrose (Dextrose 50%) STAT PRN IV Hypoglycemia 07/06/17 23:30 08/05/17 23:29 Dextrose (Dextrose 50%) STAT PRN IV Hypoglycemia 07/07/17 17:30 08/04/17 17:29 Docusate Sodium (Colace) 100 mg THREE TIMES A DAY ORAL 07/07/17 09:00 08/05/17 17:59 Heparin Sodium (Porcine) (Heparin 5000 units/ml) 5,000 units EVERY 12 HOURS SUBQ 07/07/17 09:00 08/02/17 08:59 Lactulose (Cephulac) 20 gm THREE TIMES A DAY ORAL 07/07/17 09:00 08/03/17 17:59 Lorazepam (Ativan 2mg/ml 1ml) 0.5 mg Q4H PRN IV Breakthrough agitation 07/07/17 01:00 07/10/17 16:59 Morphine Sulfate (Morphine Sulfate) 4 mg Q4H PRN IVP PAIN 4-10 07/07/17 01:30 07/10/17 17:29 07/07/17 04:56 Nitroglycerin (Ntg) 0.4 mg Q5M PRN SL Prn Chest Pain 07/06/17 23:20 08/05/17 19:14 Nitroglycerin (Ntg) 0.4 mg Q5MIN PRN SL Prn Chest Pain 07/06/17 23:15 08/04/17 16:44 Ondansetron HCl (Zofran) 4 mg Q6H PRN IVP Nausea & Vomiting 07/07/17 05:00 08/02/17 16:59 Pantoprazole (Protonix) 40 mg DAILY ORAL 07/07/17 09:00 08/02/17 10:44 Polyethylene Glycol (Miralax) 17 gm BEDTIME ORAL 07/07/17 21:00 08/03/17 20:59 Polyethylene Glycol (Miralax) 17 gm HSPRN PRN ORAL Constipation 07/07/17 21:00 08/02/17 20:59 Risperidone (RisperDAL) 3 mg QHS ORAL 07/07/17 21:00 08/05/17 20:59 Simethicone (Mylicon) 80 mg Q6HR PRN ORAL Abdominal cramps 07/07/17 00:00 08/05/17 08:59 Tamsulosin HCl (Flomax) 0.4 mg BID ORAL 07/07/17 09:00 08/02/17 10:44 Zolpidem Tartrate (Ambien) 5 mg HSPRN PRN ORAL Insomnia 07/07/17 21:00 07/10/17 20:59 Gabbi Williamson NP (Vanchtein) Jul 07, 2017 08:10
[2017-07-07] MEDS: Lactulose 20gm/30ml UDC ORAL SCH ×3 (10:14→17:19)
[2017-07-07] MEDS: Heparin 5000 units/ml inj SUBQ SCH ×2 (10:15→20:40)
[2017-07-07] MEDS: Docusate 100mg cap ORAL SCH ×3 (10:16→17:19)
[2017-07-07] MEDS: Tamsulosin 0.4mg cap ORAL SCH ×2 (10:16→17:19)
--- NOTE | 2017-07-07 10:53 | Diagnostic Imaging Report ---
Indication: Dyspnea Comparison: None A single view chest radiograph was obtained. Findings: Heart is normal in size. Bronchovascular markings are prominent but may be on the basis of very low lung volumes. There is a hazy opacity at the left lung base possibly a pleural effusion. Atelectasis suspected as well at both lung bases. The stomach appears dilated. The upper abdomen is also somewhat hyperlucent which may be on the basis of dilated bowel. Please correlate clinically. Further evaluation with either plain film or CT of the abdomen may be indicated. IMPRESSION: Basilar atelectasis and a possible small left pleural effusion. Dilated bowel and stomach in the upper abdomen visualized. Suggest further evaluation is warranted clinically
--- NOTE | 2017-07-07 11:11 | Nephrology Progress Note ---
Assessment/Plan Problem List: (1) ARF (acute renal failure) (2) UTI (urinary tract infection) (3) Psychiatric disorder Assessment Status: acute renal failure- Cr 5 now down to 1.0 ? CKD underlying High K resolved Rhabdo: High CK Plan Plan: Hydrate- Dickens- 2D echo normal Ej Fx s/p Kayexelate po Flomax monitor renal parameters DC planning Subjective ROS Limited/Unobtainable: No Constitutional: Reports: malaise Objective Objective Last 24 Hour Vital Signs Date Time Temp Pulse Resp B/P (MAP) Pulse Ox O2 Delivery O2 Flow Rate FiO2 07/07/17 08:00 97.1 133 20 157/79 94 Nasal Cannula 2.0 97.1 07/07/17 04:00 130 07/07/17 04:00 97.9 130 22 133/87 94 Nasal Cannula 2.0 97.9 07/07/17 00:00 98.4 135 20 130/90 93 Nasal Cannula 2.0 98.4 07/07/17 00:00 136 07/06/17 20:10 119/81 07/06/17 20:00 99.3 138 22 125/90 90 Room Air 99.3 07/06/17 19:53 109/78 07/06/17 19:20 Nasal Cannula 2.0 28 07/06/17 19:20 95 Nasal Cannula 2.0 28 07/06/17 18:57 135 22 117/78 94 Nasal Cannula 2.0 07/06/17 16:06 97.8 107 20 119/85 94 97.8 07/06/17 11:36 98.4 91 22 129/77 94 98.4 Intake and Output 07/06/17 07/07/17 19:00 07:00 Intake Total 720 ml Output Total 1400 ml 1000 ml Balance -680 ml -1000 ml Intake Oral 720 ml Output Urine Total 1400 ml 1000 ml # Voids 1 # Bowel Movements 3 1 Laboratory Tests 07/06/17 19:25: Troponin I 0.000 07/07/17 07:15: Troponin I 0.000, White Blood Count 12.1#H, Red Blood Count 4.00L, Hemoglobin 13.1L, Hematocrit 37.0L, Mean Corpuscular Volume 93, Mean Corpuscular Hemoglobin 32.8H, Mean Corpuscular Hemoglobin Concent 35.5, Red Cell Distribution Width 11.8, Platelet Count 125L, Mean Platelet Volume 6.2L, Neutrophils (%) (Auto) , Lymphocytes (%) (Auto) , Monocytes (%) (Auto) , Eosinophils (%) (Auto) , Basophils (%) (Auto) , Differential Total Cells Counted 100, Neutrophils % (Manual) 81H, Lymphocytes % (Manual) 4L, Monocytes % (Manual) 7, Eosinophils % (Manual) 0, Basophils % (Manual) 0, Band Neutrophils 8 , Platelet Estimate DecreasedL, Platelet Morphology Normal, Anisocytosis 1+, Sodium Level 131L, Potassium Level 4.3, Chloride Level 95L, Carbon Dioxide Level 28, Anion Gap 8, Blood Urea Nitrogen 22H, Creatinine 1.0, Estimat Glomerular Filtration Rate > 60, Glucose Level 85, Calcium Level 7.9L, Total Bilirubin 0.6, Aspartate Amino Transf (AST/SGOT) 34, Alanine Aminotransferase ( ALT/SGPT) 22, Alkaline Phosphatase 97, C-Reactive Protein, Quantitative 29.3H, Total Protein 5.3L, Albumin 1.9L, Globulin 3.4, Albumin/Globulin Ratio 0.6L Height (Feet): 5 Height (Inches): 9.00 Weight (Pounds): 158 General Appearance: no apparent distress Cardiovascular: normal rate Respiratory/Chest: decreased breath sounds Abdomen: soft, distended Objective no other change NOEMY MARK Jul 07, 2017 11:11
--- NOTE | 2017-07-07 11:30 | Cardiology Progress Note ---
Assessment/Plan Assessment/Plan pleuritic cp for 2 weeks reprted colon cancer [facility] uds renal insuf rhabdo [id number] all trop neg ekg neg echo tds cxr left pleurl effusion venous dupelx pending ? v/q will d/w dr carrera d/w tawny Objective Last 24 Hour Vital Signs Date Time Temp Pulse Resp B/P (MAP) Pulse Ox O2 Delivery O2 Flow Rate FiO2 07/07/17 08:00 97.1 133 20 157/79 94 Nasal Cannula 2.0 97.1 07/07/17 04:00 130 07/07/17 04:00 97.9 130 22 133/87 94 Nasal Cannula 2.0 97.9 07/07/17 00:00 98.4 135 20 130/90 93 Nasal Cannula 2.0 98.4 07/07/17 00:00 136 07/06/17 20:10 119/81 07/06/17 20:00 99.3 138 22 125/90 90 Room Air 99.3 07/06/17 19:53 109/78 07/06/17 19:20 Nasal Cannula 2.0 28 07/06/17 19:20 95 Nasal Cannula 2.0 28 07/06/17 18:57 135 22 117/78 94 Nasal Cannula 2.0 07/06/17 16:06 97.8 107 20 119/85 94 97.8 07/06/17 11:36 98.4 91 22 129/77 94 98.4 Intake and Output 07/06/17 07/07/17 19:00 07:00 Intake Total 720 ml Output Total 1400 ml 1000 ml Balance -680 ml -1000 ml Intake Oral 720 ml Output Urine Total 1400 ml 1000 ml # Voids 1 # Bowel Movements 3 1 Laboratory Tests Test 07/06/17 19:25 07/07/17 07:15 Troponin I 0.000 ng/mL (0.000-0.056) 0.000 ng/mL (0.000-0.056) White Blood Count 12.1 K/UL (4.8-10.8) #H Red Blood Count 4.00 M/UL (4.70-6.10) L Hemoglobin 13.1 G/DL (14.2-18.0) L Hematocrit 37.0 % (42.0-52.0) L Mean Corpuscular Volume 93 FL (80-99) Mean Corpuscular Hemoglobin 32.8 PG (27.0-31.0) H Mean Corpuscular Hemoglobin Concent 35.5 G/DL (32.0-36.0) Red Cell Distribution Width 11.8 % (11.6-14.8) Platelet Count 125 K/UL (150-450) L Mean Platelet Volume 6.2 FL (6.5-10.1) L Neutrophils (%) (Auto) % (45.0-75.0) Lymphocytes (%) (Auto) % (20.0-45.0) Monocytes (%) (Auto) % (1.0-10.0) Eosinophils (%) (Auto) % (0.0-3.0) Basophils (%) (Auto) % (0.0-2.0) Differential Total Cells Counted 100 Neutrophils % (Manual) 81 % (45-75) H Lymphocytes % (Manual) 4 % (20-45) L Monocytes % (Manual) 7 % (1-10) Eosinophils % (Manual) 0 % (0-3) Basophils % (Manual) 0 % (0-2) Band Neutrophils 8 % (0-8) Platelet Estimate Decreased L Platelet Morphology Normal Anisocytosis 1+ Sodium Level 131 MMOL/L (136-145) L Potassium Level 4.3 MMOL/L (3.5-5.1) Chloride Level 95 MMOL/L (98-107) L Carbon Dioxide Level 28 MMOL/L (21-32) Anion Gap 8 mmol/L (5-15) Blood Urea Nitrogen 22 mg/dL (7-18) H Creatinine 1.0 MG/DL (0.55-1.30) Estimat Glomerular Filtration Rate > 60 mL/min (>60) Glucose Level 85 MG/DL (74-106) Calcium Level 7.9 MG/DL (8.5-10.1) L Total Bilirubin 0.6 MG/DL (0.2-1.0) Aspartate Amino Transf (AST/SGOT) 34 U/L (15-37) Alanine Aminotransferase (ALT/SGPT) 22 U/L (12-78) Alkaline Phosphatase 97 U/L (46-116) C-Reactive Protein, Quantitative 29.3 mg/dL (0.00-0.90) H Total Protein 5.3 G/DL (6.4-8.2) L Albumin 1.9 G/DL (3.4-5.0) L Globulin 3.4 g/dL Albumin/Globulin Ratio 0.6 (1.0-2.7) L Microbiology Date/Time Source Procedure Growth Status 07/04/17 12:40 Blood Blood Culture - Preliminary NO GROWTH AFTER 48 HOURS Resulted 07/04/17 12:30 Blood Blood Culture - Preliminary NO GROWTH AFTER 48 HOURS Resulted ANTELMO BAUMAN Jul 07, 2017 11:30
[2017-07-07 12:00] VITALS: BP 116/84
[2017-07-07] MEDS: cefTRIAXone 2 GM in NS 55 ML IVPB SCH (14:00)
--- NOTE | 2017-07-07 14:25 | General Progress Note ---
Assessment/Plan Assessment/Plan 1) Therapeutic opioid-induced constipation (OIC) ICD Codes: K59.03 - Drug induced constipation; T40.2X5A - Adverse effect of other opioids, initial encounter SNOMED: 051625763402577 (2) Psychiatric disorder ICD Codes: F99 - Mental disorder, not otherwise specified SNOMED: 90083280, 718011454 (3) Amphetamine abuse ICD Codes: F15.10 - Other stimulant abuse, uncomplicated SNOMED: 65698808 (4) Opiate dependence ICD Codes: F11.20 - Opioid dependence, uncomplicated SNOMED: 28792679 Qualifiers: Qualified Codes: F11.20 - Opioid dependence, uncomplicated (5) Acute constipation ICD Codes: K59.00 - Constipation, unspecified SNOMED: 384942942 Status: stable Status Narrative Discussed with Dr. Castro Assessment/Plan KUB reviewed >> moderate stool utox positive for amphetamines symptomatic treatment decrease opioid use regular diet colace, lactulose TID + miralax ppi daily fu labs Subjective ROS Limited/Unobtainable: Yes Allergies: Coded Allergies: No Known Allergies (Unverified , 01/20/17) Subjective no event Objective Last 24 Hour Vital Signs Date Time Temp Pulse Resp B/P (MAP) Pulse Ox O2 Delivery O2 Flow Rate FiO2 07/07/17 12:00 98.0 121 22 116/84 98 Nasal Cannula 2.0 98.0 07/07/17 08:00 97.1 133 20 157/79 94 Nasal Cannula 2.0 97.1 07/07/17 04:00 130 07/07/17 04:00 97.9 130 22 133/87 94 Nasal Cannula 2.0 97.9 07/07/17 00:00 98.4 135 20 130/90 93 Nasal Cannula 2.0 98.4 07/07/17 00:00 136 07/06/17 20:10 119/81 07/06/17 20:00 99.3 138 22 125/90 90 Room Air 99.3 07/06/17 19:53 109/78 07/06/17 19:20 Nasal Cannula 2.0 28 07/06/17 19:20 95 Nasal Cannula 2.0 28 07/06/17 18:57 135 22 117/78 94 Nasal Cannula 2.0 07/06/17 16:06 97.8 107 20 119/85 94 97.8 Intake and Output 07/06/17 07/07/17 19:00 07:00 Intake Total 720 ml Output Total 1400 ml 1000 ml Balance -680 ml -1000 ml Intake Oral 720 ml Output Urine Total 1400 ml 1000 ml # Voids 1 # Bowel Movements 3 1 Laboratory Tests 07/06/17 19:25: Troponin I 0.000 07/07/17 07:15: Troponin I 0.000, White Blood Count 12.1#H, Red Blood Count 4.00L, Hemoglobin 13.1L, Hematocrit 37.0L, Mean Corpuscular Volume 93, Mean Corpuscular Hemoglobin 32.8H, Mean Corpuscular Hemoglobin Concent 35.5, Red Cell Distribution Width 11.8, Platelet Count 125L, Mean Platelet Volume 6.2L, Neutrophils (%) (Auto) , Lymphocytes (%) (Auto) , Monocytes (%) (Auto) , Eosinophils (%) (Auto) , Basophils (%) (Auto) , Differential Total Cells Counted 100, Neutrophils % (Manual) 81H, Lymphocytes % (Manual) 4L, Monocytes % (Manual) 7, Eosinophils % (Manual) 0, Basophils % (Manual) 0, Band Neutrophils 8 , Platelet Estimate DecreasedL, Platelet Morphology Normal, Anisocytosis 1+, Sodium Level 131L, Potassium Level 4.3, Chloride Level 95L, Carbon Dioxide Level 28, Anion Gap 8, Blood Urea Nitrogen 22H, Creatinine 1.0, Estimat Glomerular Filtration Rate > 60, Glucose Level 85, Calcium Level 7.9L, Total Bilirubin 0.6, Aspartate Amino Transf (AST/SGOT) 34, Alanine Aminotransferase ( ALT/SGPT) 22, Alkaline Phosphatase 97, C-Reactive Protein, Quantitative 29.3H, Total Protein 5.3L, Albumin 1.9L, Globulin 3.4, Albumin/Globulin Ratio 0.6L Height (Feet): 5 Height (Inches): 9.00 Weight (Pounds): 158 General Appearance: no apparent distress EENT: normal ENT inspection Neck: supple Cardiovascular: normal rate Respiratory/Chest: lungs clear Abdomen: non tender, soft, hypoactive bowel sounds Extremities: non-tender APOLONIA CASTRO Jul 07, 2017 14:25
[2017-07-07 16:00] VITALS: BP 124/86
--- NOTE | 2017-07-07 18:30 | Consultation ---
DATE OF CONSULTATION: 07/07/2017 CARDIOLOGY CONSULTATION CONSULTING PHYSICIAN: Zachary Moncada M.D. REFERRING PHYSICIAN: Brenda Martel M.D. REASON FOR REFERRAL: Chest pain. HISTORY OF PRESENT ILLNESS: This is a rather poor historian gentleman, 46 years old, with history of psychiatric illness, who presented to the hospital a few days ago and has been admitted with original diagnosis per the coffee bar attendant run sheet of abdominal pain for 22 hours. Apparently, he denied any chest pain or shortness of breath to paramedics. He was brought to the emergency room and was evaluated. Emergency room physician indicates the patient has been in several hospitals, most recently in [facility], and was subsequently admitted to the hospital here with abdominal pain, severe constipation, and drug abuse and opiate abuse and was evaluated, was noted to have acute renal failure and urinary tract infection, and creatinine improved with hydration, and it was felt that he had rhabdomyolysis with elevated CPK. Apparently, he started having some complaints of chest pain on questioning. He indicates that he has had this pain for the past two to three weeks. He was hospitalized for it before. Pain is there only when he takes a deep breath and intermittently present. He does have shortness of breath. He does have orthopnea. He does have PND. He does have dizziness. He does have palpitations off and on. PAST MEDICAL HISTORY: According to the chart is positive for schizophrenia and apparently hypertension, history of appendectomy, and psychiatric history. [facility] records indicate that the patient apparently has a history of recently diagnosed colon cancer, presented with abdominal pain, and was noted to have colitis. ALLERGIES: No allergies to any medications. SOCIAL HISTORY: He apparently has some sort of substance abuse history, although that is not completely clear to me. REVIEW OF SYSTEMS: GASTROINTESTINAL: Positive for nausea, vomiting, diarrhea, and constipation. GENITOURINARY: He does have discomfort on urination. PULMONARY: He does have coughing and wheezing. CONSTITUTIONAL: He has had fevers, chills, and night sweats at times. PHYSICAL EXAMINATION: GENERAL: Shows him to be young gentleman, in no respiratory distress. NECK: Supple. No jugular venous distention. LUNGS: He does have some wheezes, mainly expiratory and some inspiratory. There are no significant crackles. CARDIAC: Regular rate and rhythm. No heaves noted. There are no rubs noted. ABDOMEN: Somewhat distended. Hypoactive bowel sounds. No guarding. No rigidity. EXTREMITIES: There is no edema being noted. LABORATORY AND DIAGNOSTIC DATA: White count 12.1, hemoglobin 13.1, and platelet count of 125,000. His sodium is 131, potassium 4.3, chloride 95, bicarbonate 28, BUN of 22, creatinine 1.0, glucose of 85, and his calcium is 7.9. His two sets of cardiac enzymes were negative between last night and today. CRP was 29. His ProBNP was 926 few days ago. Vitamin B12 was 769 and his folic acid of 10.6. His urinalysis, he had initially 30 to 40 of RBCs and 15 to 20 WBCs. His urine drug screen was positive for amphetamine use. CT scan of the abdomen and pelvis, impression shows suspected enteritis, moderate stool retention in the colon, and appendix not identified. His echocardiogram that was done showed basically technically difficult study due to poor parasternal acoustic window with poor endocardial and valvular definition. Ejection fraction felt to be estimated to be probably in the normal range. No significant valvular dysfunction. Mild diastolic relaxation abnormality was noted at that time. His abdominal x-rays yesterday showed no change, and his chest x-ray yesterday showed bibasilar atelectasis, possible small left-sided pleural effusion. Heart normal size. Bronchoalveolar markings prominent, but may be because of low lung volumes. The patient also had some EKGs that were ordered that basically showed some motion artifact, sinus tachycardia, and does not appear to be significantly changed from prior. ASSESSMENT AND PLAN: 1. Pleuritic chest pain. 2. Abdominal distention and pain. 3. Questionable history of colon cancer per records from [facility], not completely clear. 4. Psychiatric disorder. 5. Urine drug screen positive for amphetamines. 6. History of opiate use previously. 7. Anxiety. 8. Renal insufficiency, responded to IV fluids. 9. Rhabdomyolysis during this hospitalization due to significantly elevated CPK of 1543 at the time of admission that is resolved. This patient was seen in cardiac consultation. The patient's electrocardiograms and two sets of cardiac enzymes are all negative, and I have ordered a venous duplex study on his lower extremities to be performed. His echocardiogram previously was technically difficult. He has not had an acute episode of pain and it appears that he has been having this pain when he takes a deep breath for the past two weeks. His chest x-ray does show some pleural effusion on the left side. The question of whether further pulmonary workup needs to be performed will be left to Dr. Martel himself, but at least a venous duplex of the lower extremities should be performed. Further cardiac enzyme checks will be performed as well, but I will not pursue any further unless abnormalities are identified in his cardiac enzymes. The case was also discussed with Dr. Castro, who is seeing the patient in GI consultation in respect to the reported history of colon cancer that was noted on records that were faxed over from [facility] on this patient. Zachary Moncada M.D. DR: Jorje JOB#: [id number] CC:
[2017-07-07 20:00] VITALS: BP 145/90
[2017-07-07] MEDS: Zolpidem 5mg tab ORAL PRN ×2 (20:26→22:23)
[2017-07-07] MEDS ORDERED: Miralax 17gm pkt ORAL PRN (21:00)
[2017-07-07] MEDS ORDERED: Miralax 17gm pkt ORAL SCH (21:00)
[2017-07-08] VITALS (12 sets, daily range): BP systolic 96–129; BP diastolic 51–76
[2017-07-08] MEDS: Morphine Sulfate 4mg/ml Inj IVP PRN ×3 (00:22→11:57)
[2017-07-08] MEDS: LORazepam Inj 2mg/ml 1ml IV PRN ×2 (02:11→09:59)
[2017-07-08 09:10] LABS: HEMATOCRIT 33.5 % (42.0-52.0); MEAN CORPUSCULAR VOLUME 92 FL (80-99); PLATELET COUNT 131 K/UL (150-450); RED BLOOD COUNT 3.63 M/UL (4.70-6.10); RED CELL DISTRIBUTION WIDTH 12.1 % (11.6-14.8)
[2017-07-08] MEDS: Docusate 100mg cap ORAL SCH ×2 (09:21→12:12)
[2017-07-08] MEDS: Tamsulosin 0.4mg cap ORAL SCH (09:22)
[2017-07-08] MEDS: Lactulose 20gm/30ml UDC ORAL SCH ×2 (09:22→12:12)
[2017-07-08] MEDS: Heparin 5000 units/ml inj SUBQ SCH ×2 (09:23→21:00)
[2017-07-08 09:47] LABS: ANION GAP 9 mmol/L (5-15); BLOOD UREA NITROGEN 17 mg/dL (7-18); CALCIUM 7.9 MG/DL (8.5-10.1); CARBON DIOXIDE 27 MMOL/L (21-32); CHLORIDE 94 MMOL/L (98-107); CREATININE 0.8 MG/DL (0.55-1.30); POTASSIUM 3.7 MMOL/L (3.5-5.1); SODIUM 130 MMOL/L (136-145)
--- NOTE | 2017-07-08 09:47 | General Progress Note ---
Assessment/Plan Problem List: (1) COPD (chronic obstructive pulmonary disease) ICD Codes: J44.9 - Chronic obstructive pulmonary disease, unspecified SNOMED: 95323710 (2) Constipation ICD Codes: K59.00 - Constipation, unspecified SNOMED: 79699370 (3) Colon cancer ICD Codes: C18.9 - Malignant neoplasm of colon, unspecified SNOMED: 610499308 (4) Opiate dependence ICD Codes: F11.20 - Opioid dependence, uncomplicated SNOMED: 90241470 Qualifiers: Qualified Codes: F11.20 - Opioid dependence, uncomplicated (5) Amphetamine abuse ICD Codes: F15.10 - Other stimulant abuse, uncomplicated SNOMED: 88918987 Assessment/Plan obtain colonoscopy report from [facility] laxatives fu labs pain management Subjective ROS Limited/Unobtainable: Yes Allergies: Coded Allergies: No Known Allergies (Unverified , 01/20/17) Subjective no event sob Objective Last 24 Hour Vital Signs Date Time Temp Pulse Resp B/P (MAP) Pulse Ox O2 Delivery O2 Flow Rate FiO2 07/08/17 04:00 98.8 127 20 108/70 90 98.8 07/08/17 04:00 128 07/08/17 00:00 127 07/07/17 20:00 132 07/07/17 20:00 98.2 130 16 145/90 92 98.2 07/07/17 16:00 130 07/07/17 16:00 98.0 128 22 124/86 93 Nasal Cannula 2.0 98.0 07/07/17 15:43 98.0 07/07/17 12:00 98.0 121 22 116/84 98 Nasal Cannula 2.0 98.0 07/07/17 12:00 130 Intake and Output 07/07/17 07/08/17 19:00 07:00 Intake Total 1135 ml Output Total 700 ml 1640 ml Balance 435 ml -1640 ml Intake Oral 800 ml IV Total 335 ml Output Urine Total 700 ml 1640 ml # Bowel Movements 4 3 Laboratory Tests 07/07/17 15:00: Troponin I 0.000 07/08/17 07:40: White Blood Count [Pending], Red Blood Count [Pending], Hemoglobin [Pending], Hematocrit [Pending], Mean Corpuscular Volume [Pending], Mean Corpuscular Hemoglobin [Pending], Mean Corpuscular Hemoglobin Concent [Pending], Red Cell Distribution Width [Pending], Platelet Count [Pending], Mean Platelet Volume [ Pending], Neutrophils (%) (Auto) [Pending], Lymphocytes (%) (Auto) [Pending], Monocytes (%) (Auto) [Pending], Eosinophils (%) (Auto) [Pending], Basophils (%) (Auto) [Pending], Sodium Level [Pending], Potassium Level [Pending], Chloride Level [Pending], Carbon Dioxide Level [Pending], Blood Urea Nitrogen [Pending], Creatinine [Pending], Estimat Glomerular Filtration Rate [Pending], Glucose Level [Pending], Calcium Level [Pending] Height (Feet): 5 Height (Inches): 9.00 Weight (Pounds): 158 General Appearance: alert EENT: normal ENT inspection Neck: supple Cardiovascular: tachycardia Respiratory/Chest: decreased breath sounds Abdomen: soft, hypoactive bowel sounds, distended Extremities: non-tender APOLONIA ANTONY Jul 08, 2017 09:47
[2017-07-08] MEDS: cefTRIAXone 2 GM in NS 55 ML IVPB SCH (12:11)
--- NOTE | 2017-07-08 12:15 | Nephrology Progress Note ---
Assessment/Plan Problem List: (1) ARF (acute renal failure) (2) UTI (urinary tract infection) (3) Psychiatric disorder Assessment Status: acute renal failure- Cr 5 now down to 1.0 WBC rising Na 130 High K resolved Rhabdo: High CK Plan Plan: Due pimentel for high WBCs Hydrate- Dickens- 2D echo normal Ej Fx s/p Kayexelate po Flomax monitor renal parameters Subjective ROS Limited/Unobtainable: No Constitutional: Reports: malaise Objective Objective Last 24 Hour Vital Signs Date Time Temp Pulse Resp B/P (MAP) Pulse Ox O2 Delivery O2 Flow Rate FiO2 07/08/17 11:57 97.5 07/08/17 08:00 120 07/08/17 08:00 97.5 122 19 111/70 93 Nasal Cannula 2.0 97.5 07/08/17 04:00 98.8 127 20 108/70 90 98.8 07/08/17 04:00 128 07/08/17 00:00 127 07/07/17 20:00 132 07/07/17 20:00 98.2 130 16 145/90 92 98.2 07/07/17 16:00 130 07/07/17 16:00 98.0 128 22 124/86 93 Nasal Cannula 2.0 98.0 07/07/17 15:43 98.0 Intake and Output 07/07/17 07/08/17 19:00 07:00 Intake Total 1135 ml Output Total 700 ml 1640 ml Balance 435 ml -1640 ml Intake Oral 800 ml IV Total 335 ml Output Urine Total 700 ml 1640 ml # Bowel Movements 4 3 Laboratory Tests 07/07/17 15:00: Troponin I 0.000 07/08/17 07:40: White Blood Count 15.0H, Red Blood Count 3.63L, Hemoglobin 12.0L, Hematocrit 33.5L, Mean Corpuscular Volume 92, Mean Corpuscular Hemoglobin 33.1H, Mean Corpuscular Hemoglobin Concent 35.8, Red Cell Distribution Width 12.1, Platelet Count 131L, Mean Platelet Volume 5.9L, Neutrophils (%) (Auto) , Lymphocytes (%) (Auto) , Monocytes (%) (Auto) , Eosinophils (%) (Auto) , Basophils (%) (Auto) , Differential Total Cells Counted 100, Neutrophils % (Manual) 92H, Lymphocytes % (Manual) 3L, Monocytes % (Manual) 4, Eosinophils % (Manual) 1, Basophils % ( Manual) 0, Band Neutrophils 0, Platelet Estimate DecreasedL, Platelet Morphology Normal, Red Blood Cell Morphology Normal, Sodium Level 130L, Potassium Level 3.7, Chloride Level 94L, Carbon Dioxide Level 27, Anion Gap 9, Blood Urea Nitrogen 17, Creatinine 0.8, Estimat Glomerular Filtration Rate > 60 , Glucose Level 71L, Calcium Level 7.9L Height (Feet): 5 Height (Inches): 9.00 Weight (Pounds): 158 General Appearance: no apparent distress Cardiovascular: tachycardia Respiratory/Chest: decreased breath sounds Abdomen: distended Objective no other change NOEMY MARK 4, 2018 12:15
--- NOTE | 2017-07-08 12:32 | Cardiology Progress Note ---
Assessment/Plan Assessment/Plan 1. Pleuritic chest pain. 2. Abdominal distention and pain. 3. Questionable history of colon cancer per records from [facility], not completely clear. 4. Psychiatric disorder. 5. Urine drug screen positive for amphetamines. 6. History of opiate use previously. 7. Anxiety. 8. Renal insufficiency, responded to IV fluids. 9. Rhabdomyolysis during this hospitalization due to significantly elevated CPK of 1543 at the time of admission that is resolved. duplex not performed all trop neg ct performed to day no resutl yet he does not look uncomfortable tele reviewed sinus tachy Subjective Cardiovascular: Reports: chest pain - when take deep breath Respiratory: Denies: shortness of breath Gastrointestinal/Abdominal: Reports: abdominal pain, constipated Genitourinary: Denies: burning Objective Last 24 Hour Vital Signs Date Time Temp Pulse Resp B/P (MAP) Pulse Ox O2 Delivery O2 Flow Rate FiO2 07/08/17 11:57 97.5 07/08/17 08:00 120 07/08/17 08:00 97.5 122 19 111/70 93 Nasal Cannula 2.0 97.5 07/08/17 04:00 98.8 127 20 108/70 90 98.8 07/08/17 04:00 128 07/08/17 00:00 127 07/07/17 20:00 132 07/07/17 20:00 98.2 130 16 145/90 92 98.2 07/07/17 16:00 130 07/07/17 16:00 98.0 128 22 124/86 93 Nasal Cannula 2.0 98.0 07/07/17 15:43 98.0 General Appearance: no apparent distress, alert Neck: supple Cardiovascular: regular rhythm, tachycardia Respiratory/Chest: lungs clear Abdomen: distended Extremities: no swelling Intake and Output 07/07/17 07/08/17 19:00 07:00 Intake Total 1135 ml Output Total 700 ml 1640 ml Balance 435 ml -1640 ml Intake Oral 800 ml IV Total 335 ml Output Urine Total 700 ml 1640 ml # Bowel Movements 4 3 Laboratory Tests Test 07/07/17 15:00 07/08/17 07:40 Troponin I 0.000 ng/mL (0.000-0.056) White Blood Count 15.0 K/UL (4.8-10.8) H Red Blood Count 3.63 M/UL (4.70-6.10) L Hemoglobin 12.0 G/DL (14.2-18.0) L Hematocrit 33.5 % (42.0-52.0) L Mean Corpuscular Volume 92 FL (80-99) Mean Corpuscular Hemoglobin 33.1 PG (27.0-31.0) H Mean Corpuscular Hemoglobin Concent 35.8 G/DL (32.0-36.0) Red Cell Distribution Width 12.1 % (11.6-14.8) Platelet Count 131 K/UL (150-450) L Mean Platelet Volume 5.9 FL (6.5-10.1) L Neutrophils (%) (Auto) % (45.0-75.0) Lymphocytes (%) (Auto) % (20.0-45.0) Monocytes (%) (Auto) % (1.0-10.0) Eosinophils (%) (Auto) % (0.0-3.0) Basophils (%) (Auto) % (0.0-2.0) Differential Total Cells Counted 100 Neutrophils % (Manual) 92 % (45-75) H Lymphocytes % (Manual) 3 % (20-45) L Monocytes % (Manual) 4 % (1-10) Eosinophils % (Manual) 1 % (0-3) Basophils % (Manual) 0 % (0-2) Band Neutrophils 0 % (0-8) Platelet Estimate Decreased L Platelet Morphology Normal Red Blood Cell Morphology Normal Sodium Level 130 MMOL/L (136-145) L Potassium Level 3.7 MMOL/L (3.5-5.1) Chloride Level 94 MMOL/L (98-107) L Carbon Dioxide Level 27 MMOL/L (21-32) Anion Gap 9 mmol/L (5-15) Blood Urea Nitrogen 17 mg/dL (7-18) Creatinine 0.8 MG/DL (0.55-1.30) Estimat Glomerular Filtration Rate > 60 mL/min (>60) Glucose Level 71 MG/DL (74-106) L Calcium Level 7.9 MG/DL (8.5-10.1) L C-Reactive Protein, Quantitative Pending ANTELMO BAUMAN 4, 2018 12:32
--- NOTE | 2017-07-08 12:43 | Diagnostic Imaging Report ---
Indication: Chest pain Technique: Continuous helical transaxial imaging of the chest was obtained from the thoracic inlet to the upper abdomen during rapid intravenous contrast administration. Arterial phase of enhancement obtained. Coronal 2-D reformats were also obtained and maximum intensity projection images in multiple planes. Study obtained in a Siemens sensation [address] Automatic Exposure Control was utilized. Total Dose length Product (DLP): 504.[address] Dose Index Volume (CTDIvol): 18.42 mGy Comparison: None Findings: There is a large amount of free air demonstrated within the upper abdomen. Some fluid also noted in the left subphrenic region. In the absence of any recent surgery or gastrostomy, etc., this indicates a perforation of a hollow viscus. An upper abdominal hyperlucency was noted on yesterday's supine chest x-ray and evaluation including CT was suggested. The pulmonary artery is reasonably opacified centrally. There is no evidence of embolus or filling defect in the main pulmonary artery or right and left pulmonary artery trunks. Beyond this, the pulmonary arteries are not well opacified. There is likely no embolus involving the lobar branches with better enhancement on the left side. At the segmental and subsegmental levels, a pulmonary embolus is not excludable. The aorta is unremarkable. There is a moderate size left pleural effusion with associated left basilar atelectasis or pneumonia. Right basal atelectasis noted. IMPRESSION: Evidence of perforation of hollow viscus with extensive amount of free air in the upper abdomen and some free fluid is well. No evidence of central pulmonary embolus. Evaluation of more distal branches is limited on this study and not excludable. Moderate left pleural effusion Basilar atelectasis and/or pneumonia. Critical value communication. Findings were conveyed via telephone to the floor nurse on 2 E. at 12:30 p.m., 07/08/2017. Dr. Castro was paged at the time of this dictation. . The CT scanner at [facility] is accredited by the [employer] and the scans are performed using dose optimization techniques as appropriate to a performed exam including Automatic Exposure control.
[2017-07-08] MEDS ORDERED: D5NS 1,000 ML IV SCH (14:00)
[2017-07-08] MEDS ORDERED: DiphenhydrAMINE 50mg/ml Inj IVP PRN ×3 (14:00→20:30)
--- NOTE | 2017-07-08 14:18 | Pre-Procedure Note/Attestation ---
Pre-Procedure Note/Attestation Complete Prior to Procedure Planned Procedure: not applicable Procedure Narrative: exploratory laparotomy, possible bowel resection, possible ostomy Indications for Procedure Pre-Operative Diagnosis: perforated viscus, free air, pneumoperitoneum Attestation I attest that I discussed the nature of the procedure; its benefits; risks and complications; and alternatives (and the risks and benefits of such alternatives ), prior to the procedure, with the patient (or the patient's legal territory representative). I attest that, if there was a reasonable possibility of needing a blood transfusion, the patient (or the patient's legal territory representative) was given the [facility] standardized written summary, pursuant to the Josse Young Blood Safety Act ([place] Health and Safety Code # 1645, as amended). I attest that I re-evaluated the patient just prior to the surgery and that there has been no change in the patient's H&P, except as documented below: Gilberto Michelle Jul 08, 2017 14:18
[2017-07-08] MEDS ORDERED: Bacitracin 50000 Units Vial ONE ×2 (14:19→17:27)
[2017-07-08] MEDS ORDERED: NeoSporin Gu Irrig 1ml Amp IRRIG ONE ×2 (14:19→17:27)
--- NOTE | 2017-07-08 14:54 | Pulmonology Progress Note ---
Assessment/Plan Assessment/Plan ASSESSMENT perforation of viscus pneumoperitoneum pleuritic chest pain ( likely due to perforated viscus) ARF -resolved hyperkalemia-resolved rhabdo-resolved possible enteritis acute on chronic constipation ? colon Cancer hx of recent colonoscopy at [facility] schizophrenia, paranoid type HTN COPD Smoker Amphetamine abuse PLAN OF CARE tele troponin x 2 negative, no acute ischemic changes on ECF/tele , thus no evidence of acute KS cardio eval appreciated O2 HHN prn Venous Duplex BLE stat CTA chest done 07/08 with evidence perforation of hollow viscus with extensive amount of free air in the upper abdomen and some free fluid is well.; no evidence of PE surgeon consulted for OR urgently ECHO with pEF DVT prophylaxis s/p IVF ARF resolved s/p Kayexalate Rx K down to normal nephro follows monitor renal parameters, correct lytes as needed, avoid nephrotoxic abx, urine cx + mixed GPO, blood cx negative, elev CRP CT A/P ? enteritis, no evidence of mass, but done without contrast ? CT A/P with contrast-per GI, follows try to get [facility] info if able ID follows GI follows bowel regimen KUB + constipation, no obstruction pain management, will try to reduce PPI symptomatic Rx senior counsel on abstinence from street drugs senior counsel on abstinence from smoking declined nicotine patch psych follows psych meds as per psych recs NOTE time of this note does not reflect the actual time the patient was seen patient was seen at around 1000 am before CTA was even done case discussed and evaluated by supervising physician Subjective Allergies: Coded Allergies: No Known Allergies (Unverified , 01/20/17) Subjective on tele abdominal pain distended leukocytosis ? colon ca dx in [facility] had colonoscopy there reported abdominal pain Objective Last 24 Hour Vital Signs Date Time Temp Pulse Resp B/P (MAP) Pulse Ox O2 Delivery O2 Flow Rate FiO2 07/08/17 12:27 97.5 07/08/17 11:57 97.5 07/08/17 08:00 120 07/08/17 08:00 97.5 122 19 111/70 93 Nasal Cannula 2.0 97.5 07/08/17 04:00 98.8 127 20 108/70 90 98.8 07/08/17 04:00 128 07/08/17 00:00 127 07/07/17 20:00 132 07/07/17 20:00 98.2 130 16 145/90 92 98.2 07/07/17 16:00 130 07/07/17 16:00 98.0 128 22 124/86 93 Nasal Cannula 2.0 98.0 07/07/17 15:43 98.0 Intake and Output 07/07/17 07/08/17 19:00 07:00 Intake Total 1135 ml Output Total 700 ml 1640 ml Balance 435 ml -1640 ml Intake Oral 800 ml IV Total 335 ml Output Urine Total 700 ml 1640 ml # Bowel Movements 4 3 Objective General Appearance: mild distress HEENT: normocephalic, atraumatic, anicteric Respiratory/Chest: lungs clear, no respiratory distress, no accessory muscle use Cardiovascular: no JVD Abdomen: hypoactive bowel sounds, abdomen distended, tender to palpation, hard Neurologic/Psychiatric: no motor/sensory deficits, alert, awake, responsive Musculoskeletal: normal muscle bulk Laboratory Tests 07/07/17 15:00: Troponin I 0.000 07/08/17 07:40: White Blood Count 15.0H, Red Blood Count 3.63L, Hemoglobin 12.0L, Hematocrit 33.5L, Mean Corpuscular Volume 92, Mean Corpuscular Hemoglobin 33.1H, Mean Corpuscular Hemoglobin Concent 35.8, Red Cell Distribution Width 12.1, Platelet Count 131L, Mean Platelet Volume 5.9L, Neutrophils (%) (Auto) , Lymphocytes (%) (Auto) , Monocytes (%) (Auto) , Eosinophils (%) (Auto) , Basophils (%) (Auto) , Differential Total Cells Counted 100, Neutrophils % (Manual) 92H, Lymphocytes % (Manual) 3L, Monocytes % (Manual) 4, Eosinophils % (Manual) 1, Basophils % ( Manual) 0, Band Neutrophils 0, Platelet Estimate DecreasedL, Platelet Morphology Normal, Red Blood Cell Morphology Normal, Sodium Level 130L, Potassium Level 3.7, Chloride Level 94L, Carbon Dioxide Level 27, Anion Gap 9, Blood Urea Nitrogen 17, Creatinine 0.8, Estimat Glomerular Filtration Rate > 60 , Glucose Level 71L, Calcium Level 7.9L, C-Reactive Protein, Quantitative > 70.0H Current Medications Medications (Trade) Dose Ordered Sig/Kayy Route PRN Reason Start Time Stop Time Status Last Admin Dose Admin Dextrose (Dextrose 50%) STAT PRN IV Hypoglycemia 07/06/17 23:30 08/05/17 23:29 Dextrose/Sodium Chloride 1,000 ml @ 100 mls/hr Q10H IV 07/08/17 14:00 08/07/17 13:59 07/08/17 14:43 Diphenhydramine HCl (Benadryl) 25 mg Q6H PRN IVP Itching 07/08/17 14:00 08/07/17 13:59 Heparin Sodium (Porcine) (Heparin 5000 units/ml) 5,000 units EVERY 12 HOURS SUBQ 07/07/17 09:00 08/02/17 08:59 07/08/17 09:23 Lorazepam (Ativan 2mg/ml 1ml) 0.5 mg Q4H PRN IV Breakthrough agitation 07/07/17 01:00 07/10/17 16:59 07/08/17 09:59 Morphine Sulfate (Morphine Sulfate) 4 mg Q4H PRN IVP PAIN 4-10 07/07/17 01:30 07/10/17 17:29 07/08/17 11:57 Nitroglycerin (Ntg) 0.4 mg Q5M PRN SL Prn Chest Pain 07/06/17 23:20 08/05/17 19:14 Ondansetron HCl (Zofran) 4 mg Q6H PRN IVP Nausea & Vomiting 07/07/17 05:00 08/02/17 16:59 07/07/17 20:32 Pantoprazole (Protonix) 40 mg DAILY IVP 07/09/17 09:00 08/08/17 08:59 Piperacillin Sod/ Tazobactam Sod 3.375 gm/Dextrose 110 ml @ 27.5 mls/hr EVERY 8 HOURS IVPB 07/08/17 15:00 07/13/17 14:59 07/08/17 14:42 Clay (Gabbi Randolph NP Jul 08, 2017 14:54
[2017-07-08] MEDS ORDERED: Piperacillin/Tazobactam 3.375 GM in D5W 110 ML IVPB SCH (15:00)
--- NOTE | 2017-07-08 15:04 | Infectious Diseases Prog Note ---
Assessment/Plan Assessment/Plan ASSESSMENT: The patient is a 46-year-old male with; Leukocytosis, worsen history of diarrhea, SP Bowel perf CT : Evidence of perforation of hollow viscus with extensive amount of free air in the upper abdomen and some free fluid is well. CRP ELEVATED ? etio infection RAMSEY: Improved HTN COPD/asthma. Smoker. History of chronic constipation. Osteoarthritis. ? CAD/NH, hx PLAN: Cont pt on IV Zosyn d# 1 , DC Rocephin d# 5 monitor chest x-ray. Nephrology, following Blood Cx : P Ct Abd/ P : Pending Surg Cons : P Subjective Allergies: Coded Allergies: No Known Allergies (Unverified , 01/20/17) Subjective CT : Evidence of perforation of hollow viscus with extensive amount of free air in the upper abdomen and some free fluid is well. Objective Vital Signs Last 24 Hour Vital Signs Date Time Temp Pulse Resp B/P (MAP) Pulse Ox O2 Delivery O2 Flow Rate FiO2 07/08/17 12:27 97.5 07/08/17 11:57 97.5 07/08/17 08:00 120 07/08/17 08:00 97.5 122 19 111/70 93 Nasal Cannula 2.0 97.5 07/08/17 04:00 98.8 127 20 108/70 90 98.8 07/08/17 04:00 128 07/08/17 00:00 127 07/07/17 20:00 132 07/07/17 20:00 98.2 130 16 145/90 92 98.2 07/07/17 16:00 130 07/07/17 16:00 98.0 128 22 124/86 93 Nasal Cannula 2.0 98.0 07/07/17 15:43 98.0 Height (Feet): 5 Height (Inches): 9.00 Weight (Pounds): 158 HEENT: mucous membranes moist Respiratory/Chest: no respiratory distress Cardiovascular: regularly irregular Abdomen: no organomegaly Laboratory Tests Test 07/08/17 07:40 07/08/17 14:40 White Blood Count 15.0 K/UL (4.8-10.8) H Red Blood Count 3.63 M/UL (4.70-6.10) L Hemoglobin 12.0 G/DL (14.2-18.0) L Hematocrit 33.5 % (42.0-52.0) L Mean Corpuscular Volume 92 FL (80-99) Mean Corpuscular Hemoglobin 33.1 PG (27.0-31.0) H Mean Corpuscular Hemoglobin Concent 35.8 G/DL (32.0-36.0) Red Cell Distribution Width 12.1 % (11.6-14.8) Platelet Count 131 K/UL (150-450) L Mean Platelet Volume 5.9 FL (6.5-10.1) L Neutrophils (%) (Auto) % (45.0-75.0) Lymphocytes (%) (Auto) % (20.0-45.0) Monocytes (%) (Auto) % (1.0-10.0) Eosinophils (%) (Auto) % (0.0-3.0) Basophils (%) (Auto) % (0.0-2.0) Differential Total Cells Counted 100 Neutrophils % (Manual) 92 % (45-75) H Lymphocytes % (Manual) 3 % (20-45) L Monocytes % (Manual) 4 % (1-10) Eosinophils % (Manual) 1 % (0-3) Basophils % (Manual) 0 % (0-2) Band Neutrophils 0 % (0-8) Platelet Estimate Decreased L Platelet Morphology Normal Red Blood Cell Morphology Normal Sodium Level 130 MMOL/L (136-145) L Potassium Level 3.7 MMOL/L (3.5-5.1) Chloride Level 94 MMOL/L (98-107) L Carbon Dioxide Level 27 MMOL/L (21-32) Anion Gap 9 mmol/L (5-15) Blood Urea Nitrogen 17 mg/dL (7-18) Creatinine 0.8 MG/DL (0.55-1.30) Estimat Glomerular Filtration Rate > 60 mL/min (>60) Glucose Level 71 MG/DL (74-106) L Calcium Level 7.9 MG/DL (8.5-10.1) L C-Reactive Protein, Quantitative > 70.0 mg/dL (0.00-0.90) H Prothrombin Time Pending Prothromb Time International Ratio Pending Activated Partial Thromboplast Time Pending Current Medications Medications (Trade) Dose Ordered Sig/Kayy Route PRN Reason Start Time Stop Time Status Last Admin Dose Admin Dextrose (Dextrose 50%) STAT PRN IV Hypoglycemia 07/06/17 23:30 08/05/17 23:29 Dextrose/Sodium Chloride 1,000 ml @ 100 mls/hr Q10H IV 07/08/17 14:00 08/07/17 13:59 07/08/17 14:43 Diphenhydramine HCl (Benadryl) 25 mg Q6H PRN IVP Itching 07/08/17 14:00 08/07/17 13:59 Heparin Sodium (Porcine) (Heparin 5000 units/ml) 5,000 units EVERY 12 HOURS SUBQ 07/07/17 09:00 08/02/17 08:59 07/08/17 09:23 Lorazepam (Ativan 2mg/ml 1ml) 0.5 mg Q4H PRN IV Breakthrough agitation 07/07/17 01:00 07/10/17 16:59 07/08/17 09:59 Morphine Sulfate (Morphine Sulfate) 4 mg Q4H PRN IVP PAIN 4-10 07/07/17 01:30 07/10/17 17:29 07/08/17 11:57 Nitroglycerin (Ntg) 0.4 mg Q5M PRN SL Prn Chest Pain 07/06/17 23:20 08/05/17 19:14 Ondansetron HCl (Zofran) 4 mg Q6H PRN IVP Nausea & Vomiting 07/07/17 05:00 08/02/17 16:59 07/07/17 20:32 Pantoprazole (Protonix) 40 mg DAILY IVP 07/09/17 09:00 08/08/17 08:59 Piperacillin Sod/ Tazobactam Sod 3.375 gm/Dextrose 110 ml @ 27.5 mls/hr EVERY 8 HOURS IVPB 07/08/17 15:00 07/13/17 14:59 07/08/17 14:42 STEPH TOLBERT M.D. Jul 08, 2017 15:04
--- NOTE | 2017-07-08 15:07 | Consultation ---
History of Present Illness General Date patient seen: Jul 08, 2017 Chief Complaint: Abdominal Pain Referring physician: YUVAL COTTON Reason for Consultation: perforated viscus Present Illness HPI 46 year old male with multiple medical comorbidities as noted below presented to ED a few days ago complaints of abdominal pain. Stated that he has not had BM in over 2 weeks and has been uncomfortable. No n/v/f/c. Pain cramping 10/ 10 pain as per patient. Initial work up identified significant constipation and he was treated accordingly. Unfortunately today on radiological evaluation was noted to have significant free air and fluid. Surgery called to evaluate. When seen at bedside patient uncomfortable and complaining of abdominal pain. states pain diffuse but more localized to LLQ. states he feels as if abdomen distended. denies nausea or emesis. no fever or chills. requesting morphine at dosage of 8mg in specific. CT reviewed and free air and fluid noted. labs with leukocytosis. of note, history of recent admission to [place] where there was supposedly a colonoscopy performed that identified a colon cancer? currently records unavailable and not history of this could be given by patient. Allergies: Coded Allergies: No Known Allergies (Unverified , 01/20/17) Medication History Scheduled Clonazepam* (Klonopin*), 1 MG ORAL Q6H, (Reported) Quetiapine Fumarate* (Seroquel*), 25 MG ORAL DAILY, (Reported) Patient History History Provided By: Patient, Medical Record, PMD Healthcare decision maker SELF Resuscitation status Full Code Advanced Directive on File No Past Medical/Surgical History Past Medical/Surgical History: (1) Perforated abdominal viscus (2) Pneumoperitoneum (3) Acute abdomen (4) UTI (urinary tract infection) (5) Jejunitis (6) Acute constipation (7) Opiate dependence (8) Psychosis (9) Amphetamine abuse (10) ARF (acute renal failure) (11) Excessive cerumen in both ear canals (12) Psychiatric disorder (13) Therapeutic opioid-induced constipation (OIC) (14) COPD (chronic obstructive pulmonary disease) (15) Constipation (16) Colon cancer Review of Systems Constitutional: Denies: no symptoms, see HPI, chills, sweats, fever, malaise, weakness, other Eye: Denies: no symptoms, see HPI, eye pain, blurred vision, tearing, double vision, nose pain, nose congestion, acuity changes, discharge, other ENT: Denies: no symptoms, see HPI, ear pain, ear discharge, nose pain, nose congestion, throat pain, throat swelling, mouth pain, hearing loss, nasal discharge, other Respiratory: Denies: no symptoms, see HPI, cough, orthopnea, shortness of breath, stridor, wheezing, ROBLES, sputum, other Cardiovascular: Denies: no symptoms, see HPI, chest pain, edema, palpitations, syncope, PND, other Gastrointestinal: Reports: abdominal pain, constipation Genitourinary: Denies: no symptoms, see HPI, discharge, dysuria, frequency, hematuria, pain, retention, incontinence, urgency, vag bleed/dc, other Musculoskeletal: Denies: no symptoms, see HPI, back pain, gout, joint pain, joint swelling, muscle pain, muscle stiffness, other Skin: Denies: no symptoms, see HPI, rash, change in color, change in hair/nails , dryness, lesions, other Psychiatric: Denies: no symptoms, see HPI, prior hx, anxiety, depressed feelings, emotional problems, SI, HI, hallucinations, other Neurological: Denies: no symptoms, see HPI, headache, numbness, paresthesia, seizure, tingling, tremors, focal weakness, syncope, dizziness, other Endocrine: Denies: no symptoms, see HPI, excessive sweating, flushing, intolerance to temperature, increased thirst, increased urine, unexplained weight loss, other Hematologic/Lymphatic: Denies: no symptoms, see HPI, anemia, blood clots, easy bleeding, easy bruising, swollen glands, diathesis, other All Other Systems: negative except mentioned in HPI Physical Exam General Appearance: mild distress Lines, tubes and drains: peripheral HEENT: mucous membranes moist, PERRL Neck: supple Respiratory/Chest: chest wall non-tender, lungs clear, normal breath sounds, no respiratory distress, no accessory muscle use Cardiovascular/Chest: normal peripheral pulses Abdomen: absent bowel sounds, distended, guarding, rebound, tender, other - generalized peritonitis with focus in LLQ Genitourinary/Rectal: horan Extremities: normal range of motion Skin Exam: normal pigmentation Neurologic: alert, oriented x 3, responsive Last 24 Hour Vital Signs Date Time Temp Pulse Resp B/P (MAP) Pulse Ox O2 Delivery O2 Flow Rate FiO2 07/08/17 12:27 97.5 07/08/17 11:57 97.5 07/08/17 08:00 120 07/08/17 08:00 97.5 122 19 111/70 93 Nasal Cannula 2.0 97.5 07/08/17 04:00 98.8 127 20 108/70 90 98.8 07/08/17 04:00 128 07/08/17 00:00 127 07/07/17 20:00 132 07/07/17 20:00 98.2 130 16 145/90 92 98.2 07/07/17 16:00 130 07/07/17 16:00 98.0 128 22 124/86 93 Nasal Cannula 2.0 98.0 07/07/17 15:43 98.0 Intake and Output 07/07/17 07/08/17 19:00 07:00 Intake Total 1135 ml Output Total 700 ml 1640 ml Balance 435 ml -1640 ml Intake Oral 800 ml IV Total 335 ml Output Urine Total 700 ml 1640 ml # Bowel Movements 4 3 Laboratory Tests Test 07/07/17 15:00 07/08/17 07:40 Troponin I 0.000 ng/mL (0.000-0.056) White Blood Count 15.0 K/UL (4.8-10.8) H Red Blood Count 3.63 M/UL (4.70-6.10) L Hemoglobin 12.0 G/DL (14.2-18.0) L Hematocrit 33.5 % (42.0-52.0) L Mean Corpuscular Volume 92 FL (80-99) Mean Corpuscular Hemoglobin 33.1 PG (27.0-31.0) H Mean Corpuscular Hemoglobin Concent 35.8 G/DL (32.0-36.0) Red Cell Distribution Width 12.1 % (11.6-14.8) Platelet Count 131 K/UL (150-450) L Mean Platelet Volume 5.9 FL (6.5-10.1) L Neutrophils (%) (Auto) % (45.0-75.0) Lymphocytes (%) (Auto) % (20.0-45.0) Monocytes (%) (Auto) % (1.0-10.0) Eosinophils (%) (Auto) % (0.0-3.0) Basophils (%) (Auto) % (0.0-2.0) Differential Total Cells Counted 100 Neutrophils % (Manual) 92 % (45-75) H Lymphocytes % (Manual) 3 % (20-45) L Monocytes % (Manual) 4 % (1-10) Eosinophils % (Manual) 1 % (0-3) Basophils % (Manual) 0 % (0-2) Band Neutrophils 0 % (0-8) Platelet Estimate Decreased L Platelet Morphology Normal Red Blood Cell Morphology Normal Sodium Level 130 MMOL/L (136-145) L Potassium Level 3.7 MMOL/L (3.5-5.1) Chloride Level 94 MMOL/L (98-107) L Carbon Dioxide Level 27 MMOL/L (21-32) Anion Gap 9 mmol/L (5-15) Blood Urea Nitrogen 17 mg/dL (7-18) Creatinine 0.8 MG/DL (0.55-1.30) Estimat Glomerular Filtration Rate > 60 mL/min (>60) Glucose Level 71 MG/DL (74-106) L Calcium Level 7.9 MG/DL (8.5-10.1) L C-Reactive Protein, Quantitative > 70.0 mg/dL (0.00-0.90) H Height (Feet): 5 Height (Inches): 9.00 Weight (Pounds): 158 Medications Current Medications Medications (Trade) Dose Ordered Sig/Kayy Route PRN Reason Start Time Stop Time Status Last Admin Dose Admin Dextrose (Dextrose 50%) STAT PRN IV Hypoglycemia 07/06/17 23:30 08/05/17 23:29 Dextrose/Sodium Chloride 1,000 ml @ 100 mls/hr Q10H IV 07/08/17 14:00 08/07/17 13:59 07/08/17 14:43 Diphenhydramine HCl (Benadryl) 25 mg Q6H PRN IVP Itching 07/08/17 14:00 08/07/17 13:59 Heparin Sodium (Porcine) (Heparin 5000 units/ml) 5,000 units EVERY 12 HOURS SUBQ 07/07/17 09:00 08/02/17 08:59 07/08/17 09:23 Lorazepam (Ativan 2mg/ml 1ml) 0.5 mg Q4H PRN IV Breakthrough agitation 07/07/17 01:00 07/10/17 16:59 07/08/17 09:59 Morphine Sulfate (Morphine Sulfate) 4 mg Q4H PRN IVP PAIN 4-10 07/07/17 01:30 07/10/17 17:29 07/08/17 11:57 Nitroglycerin (Ntg) 0.4 mg Q5M PRN SL Prn Chest Pain 07/06/17 23:20 08/05/17 19:14 Ondansetron HCl (Zofran) 4 mg Q6H PRN IVP Nausea & Vomiting 07/07/17 05:00 08/02/17 16:59 07/07/17 20:32 Pantoprazole (Protonix) 40 mg DAILY IVP 07/09/17 09:00 08/08/17 08:59 Piperacillin Sod/ Tazobactam Sod 3.375 gm/Dextrose 110 ml @ 27.5 mls/hr EVERY 8 HOURS IVPB 07/08/17 15:00 07/13/17 14:59 07/08/17 14:42 Assessment/Plan Problem List: (1) Perforated abdominal viscus Assessment & Plan: perforated abdominal viscus as noted on CT. exam with peritonitis generalized but with focus in LLQ. leukocytosis. history of psych illness but currently AAOx4 and cooperative with exam. poor historian. possible drug seeking behavior. unfortunately given CT findings and Exam warrants urgent exploration as his condition is and will deteriorate. spoke with colleagues and noted significant change in condition today as compared to yesterday. patient states he is much worse today. discussed findings with patient and plan. recommend exploratory laparotomy. will likely need colostomy. patient expressed understanding and has understanding of what a colostomy entails. will proceed to OR SNOMED: [id number] Status: not improved Gilberto Michelle Jul 08, 2017 15:07
[2017-07-08 15:16] LABS: INR 1.1 (0.9-1.1)
[2017-07-08] MEDS ORDERED: Propofol 200mg/20ml IV ONE (15:30)
[2017-07-08] MEDS ORDERED: Zemuron 50mg/5ml Inj IV ONE (15:30)
[2017-07-08] MEDS ORDERED: LR 1000ml ONE (15:30)
[2017-07-08] MEDS ORDERED: Midazolam 2mg/2ml Inj ONE (15:30)
[2017-07-08] MEDS ORDERED: Morphine Sulfate 10mg/ml Inj ONE (15:30)
[2017-07-08] MEDS ORDERED: fentaNYL 100 mcg/2 mL IV ONE (15:30)
[2017-07-08] MEDS ORDERED: Succinylcholine 20mg/ml 10ml vial ONE (15:30)
[2017-07-08] MEDS ORDERED: NS Irrig 1000ml IRRIG ONE (15:50)
--- NOTE | 2017-07-08 17:23 | Anethesia Preoperative Eval ---
Anesthesia Pre-op PMH/ROS General Date of Evaluation: Jul 08, 2017 Time of Evaluation: 15:30 Anesthesiologist: Dean ASA Score: ASA 3 Mallampati Score Class I : Soft palate, uvula, fauces, pillars visible Class II: Soft palate, uvula, fauces visible Class III: Soft palate, base of uvula visible Class IV: Only hard plate visible Mallampati Classification: Class III Surgeon: Jeanie Diagnosis: Perforated bowel Surgical Procedure: Exploratory laparotomy Anesthesia History: none Social History: current smoker Family History: no anesthesia problems Allergies: Coded Allergies: No Known Allergies (Unverified , 01/20/17) Medications: see eMAR Past Medical History Cardiovascular: Denies: HTN, CAD, VT, valve dz, arrhythmia, other Pulmonary: Denies: asthma, COPD, JOSE, other Gastrointestinal/Genitourinary: Reports: GERD, Denies: CRI, ESRD, other Neurologic/Psychiatric: Reports: other - schizophrenia, opioid abuse, Denies: dementia, CVA, depression/anxiety, TIA Endocrine: Denies: DM, hypothyroidism, steroids, other HEENT: Denies: cataract (L), cataract (R), glaucoma, APACHE (L), APACHE (R), other Hematology/Immune: Reports: anemia - mild, Denies: DVT, bleeding disorder, other Musculoskeletal/Integumentary: Denies: OA, RA, DJD, DDD, edema, other PMH Narrative: poor historian, admitted for acute abdominal pain PSxH Narrative: See H&P Anesthesia Pre-op Phys. Exam Physician Exam Last Vital Signs Date Time Temp Pulse Resp B/P (MAP) Pulse Ox O2 Delivery O2 Flow Rate FiO2 07/08/17 12:27 97.5 07/08/17 12:00 118 22 129/76 2 Nasal Cannula 2.0 07/06/17 19:20 28 Constitutional: other - Severe abdominal pain in acute distress Neurologic: other - unable to obtaine Cardiovascular: RRR, other Gastrointestinal: other - distended, tender on palpation Airway Exam Mallampati Score: Class III MO: limited Neck: stiff ROM: limited Teeth: missing, broken, other - poor oral hygeen Dentures: no upper, no lower Anesthesia Pre-op A/P Labs Hematology Test 07/08/17 07:40 White Blood Count 15.0 K/UL (4.8-10.8) H Red Blood Count 3.63 M/UL (4.70-6.10) L Hemoglobin 12.0 G/DL (14.2-18.0) L Hematocrit 33.5 % (42.0-52.0) L Mean Corpuscular Volume 92 FL (80-99) Mean Corpuscular Hemoglobin 33.1 PG (27.0-31.0) H Mean Corpuscular Hemoglobin Concent 35.8 G/DL (32.0-36.0) Red Cell Distribution Width 12.1 % (11.6-14.8) Platelet Count 131 K/UL (150-450) L Mean Platelet Volume 5.9 FL (6.5-10.1) L Neutrophils (%) (Auto) % (45.0-75.0) Lymphocytes (%) (Auto) % (20.0-45.0) Monocytes (%) (Auto) % (1.0-10.0) Eosinophils (%) (Auto) % (0.0-3.0) Basophils (%) (Auto) % (0.0-2.0) Differential Total Cells Counted 100 Neutrophils % (Manual) 92 % (45-75) H Lymphocytes % (Manual) 3 % (20-45) L Monocytes % (Manual) 4 % (1-10) Eosinophils % (Manual) 1 % (0-3) Basophils % (Manual) 0 % (0-2) Band Neutrophils 0 % (0-8) Platelet Estimate Decreased L Platelet Morphology Normal Red Blood Cell Morphology Normal Coagulation Test 07/08/17 14:40 Prothrombin Time 11.2 SEC (9.30-11.50) Prothromb Time International Ratio 1.1 (0.9-1.1) Activated Partial Thromboplast Time 30 SEC (23-33) Chemistry Test 07/08/17 07:40 Sodium Level 130 MMOL/L (136-145) L Potassium Level 3.7 MMOL/L (3.5-5.1) Chloride Level 94 MMOL/L (98-107) L Carbon Dioxide Level 27 MMOL/L (21-32) Anion Gap 9 mmol/L (5-15) Blood Urea Nitrogen 17 mg/dL (7-18) Creatinine 0.8 MG/DL (0.55-1.30) Estimat Glomerular Filtration Rate > 60 mL/min (>60) Glucose Level 71 MG/DL (74-106) L Calcium Level 7.9 MG/DL (8.5-10.1) L C-Reactive Protein, Quantitative > 70.0 mg/dL (0.00-0.90) H Risk Assessment & Plan Assessment: ASA 3 E Plan: GA with ETT possible intraoperative blood transfusion, may need ICU care postoperatively with respiratory support Status Change Before Surgery: No Pre-Antibiotics Drug: as scheduled MED LEON M.D. Jul 08, 2017 17:23
[2017-07-08] MEDS ORDERED: Tubing IV Secondary IV ONE (17:26)
[2017-07-08] MEDS ORDERED: NS 275ml ONE (17:26)
[2017-07-08] MEDS ORDERED: LR 1000ml 1,000 ML IVLG SCH (17:45)
[2017-07-08] MEDS ORDERED: Hydromorphone 0.5mg/0.5ml inj IVP PRN ×3 (17:45→22:45)
[2017-07-08] MEDS ORDERED: Albuterol ud Inhalation HHN PRN (17:45)
[2017-07-08] MEDS ORDERED: LORazepam Inj 2mg/ml 1ml IV ONE (17:45)
[2017-07-08] MEDS ORDERED: LORazepam Inj 2mg/ml 1ml IV PRN ×5 (17:45→21:00)
--- NOTE | 2017-07-08 19:41 | Brief Operative Note ---
Immediate Post Operative Note Operative Note Pre-op Diagnosis: perforated viscus, free air, pneumoperitoneum Procedure: exploratory laparotomy extended left colectomy transverse colostomy creation abdominal washout and drain placement Post-op Diagnosis: perforated left colon with prolonged inflammatory reaction, gross spillage, bowel ischemia Surgeon: harpreet Anesthesiologist: carlin Anesthesia: general Specimen: yes - omentum, extended left colectomy Complications: none Condition: stable Fluids: see records Estimated Blood Loss: volume Drains: ALIA Implant(s) used?: No Gilberto Michelle Jul 08, 2017 19:41
[2017-07-08] MEDS ORDERED: Norepinephrine Bitartrate 4 MG in NS 250 ML IV SCH (19:45)
[2017-07-08] MEDS ORDERED: Ketorolac 30mg Inj IV PRN (19:45)
--- NOTE | 2017-07-08 19:55 | Immediate Post-Op Evaluation ---
Immediate Post-Op Evalulation Immediate Post-Op Evalulation Procedure: Exploratory laparotomy, partial bowel resection Date of Evaluation: Jul 08, 2017 Time of Evaluation: 19:53 IV Fluids: 3000 Blood Products: 1 unit PRBC, albumin 250 hespan 500 Estimated Blood Loss: 600 Urinary Output: 200 Blood Pressure Systolic: 128 Blood Pressure Diastolic: 74 Pulse Rate: 116 Respiratory Rate: 16 O2 Sat by Pulse Oximetry: 99 Temperature (Fahrenheit): 99.7 Pain Score (1-10): 0 Nausea: No Vomiting: No Complications none Patient Status: no response, ventilated, none Hydration Status: adequate MED LEON M.D. Jul 08, 2017 19:55
[2017-07-08] MEDS ORDERED: Morphine Sulfate 4mg/ml Inj IVP PRN ×3 (20:00→21:30)
[2017-07-08] MEDS ORDERED: Morphine Sulfate 2mg/ml Inj IVP PRN ×2 (20:00→21:00)
[2017-07-08] MEDS ORDERED: Nitroglycerin Subl 0.4mg tab SL PRN (20:30)
[2017-07-08] MEDS: D5NS 1,000 ML IV SCH (21:15)
[2017-07-08] MEDS: Piperacillin/Tazobactam 3.375 GM in D5W 110 ML IVPB SCH (21:58)
[2017-07-09] VITALS (24 sets, daily range): BP systolic 73–135; BP diastolic 22–77
[2017-07-09] MEDS ORDERED: Ketorolac 30mg Inj IV PRN (01:45)
[2017-07-09] MEDS ORDERED: DiphenhydrAMINE 50mg/ml Inj IVP PRN (02:00)
[2017-07-09] MEDS: LORazepam Inj 2mg/ml 1ml IV PRN ×2 (02:47→16:33)
[2017-07-09] MEDS ORDERED: Albuterol ud Inhalation HHN PRN (05:45)
[2017-07-09] MEDS: Piperacillin/Tazobactam 3.375 GM in D5W 110 ML IVPB SCH ×3 (06:11→21:12)
[2017-07-09] MEDS: D5NS 1,000 ML IV SCH ×2 (06:12→17:30)
[2017-07-09 07:31] LABS: HEMATOCRIT 45.7 % (42.0-52.0); HEMOGLOBIN 15.8 G/DL (14.2-18.0); MEAN CORPUSCULAR VOLUME 93 FL (80-99); PLATELET COUNT 161 K/UL (150-450); RED BLOOD COUNT 4.92 M/UL (4.70-6.10); RED CELL DISTRIBUTION WIDTH 13.2 % (11.6-14.8); WHITE BLOOD COUNT 15.5 K/UL (4.8-10.8)
[2017-07-09] MEDS: Pantoprazole Inj IV SCH (08:29)
[2017-07-09 08:31] LABS: ALANINE AMINOTRANSFERASE 17 U/L (12-78); ALBUMIN 1.1 G/DL (3.4-5.0); ALBUMIN/GLOBULIN RATIO 0.4 (1.0-2.7); ALKALINE PHOSPHATASE 70 U/L (46-116); ANION GAP 7 mmol/L (5-15); ASPARTATE AMINO TRANSFERASE 49 U/L (15-37); BILIRUBIN,TOTAL 0.8 MG/DL (0.2-1.0); BLOOD UREA NITROGEN 22 mg/dL (7-18); CALCIUM 6.3 MG/DL (8.5-10.1); CARBON DIOXIDE 25 MMOL/L (21-32); CHLORIDE 104 MMOL/L (98-107); CREATININE 1.4 MG/DL (0.55-1.30); PHOSPHORUS 5.8 MG/DL (2.5-4.9); POTASSIUM 4.6 MMOL/L (3.5-5.1); SODIUM 136 MMOL/L (136-145)
[2017-07-09] MEDS ORDERED: Pantoprazole Inj IV SCH (09:00)
[2017-07-09] MEDS ORDERED: Pantoprazole Inj IVP SCH (09:00)
[2017-07-09] MEDS: Heparin 5000 units/ml inj SUBQ SCH ×2 (09:00→21:28)
[2017-07-09 09:11] LABS: CREATINE KINASE 354 U/L (26-308)
--- NOTE | 2017-07-09 09:41 | Diagnostic Imaging Report ---
Indication: Abdominal pain Technique: Spiral acquisitions obtained through the abdomen and pelvis. No oral contrast utilized, per emergency room physician request No IV contrast utilized, per referring physician request.. Multiplanar reconstructions were generated. Total dose length product 593.65 mGycm. CTDIvol(s) 11.15 mGy. Dose reduction achieved using automated exposure control Comparison: 07/03/2017 Findings: Interim development of a large pneumoperitoneum. Free air is seen anterior to the liver, in the anterior peritoneal space. Gas bubbles are seen over the dome of the spleen and there is a large gas collection posterior and superior to the spleen with an air-fluid level. There is a gas collection in the left side of the mid abdomen which appears to be extraluminal as well. This contains a small amount of what appears to be contrast, although there is no evidence of contrast having been ingested for this or the previous exam. Most likely, this represents extravasated vascular contrast from the recent chest CT angiogram. This collection extends from the mesenteric root anterior to the pancreas down the left paracolic gutter, and then extends anterior to the distal descending colon. This collection also appears dissected farther anterior and to the mesenteric root. There is marked wall thickening of the jejunum which appears to begin at the level of the ligament of Treitz. The jejunum in this region is also markedly dilated and fluid-filled. Small amount of contrast is seen within the lumen Gas bubbles are seen dependently within these loops, most likely represent small pockets of bowel gas within mucosal folds rather than foci of pneumatosis. More distally, the small bowel remains somewhat dilated and fluid-filled but the wall is not thickened. There appears to be gradual tapering to more normal caliber distal ileum. The descending colon demonstrates some wall thickening. There is considerable edema surrounding the ascending colon, although the actual colonic wall is not frankly thickened. The stomach and duodenum are distended. Lack of IV contrast limits assessment of the solid organs. The liver is unremarkable. The gallbladder is nondistended. The bile ducts are unremarkable. The pancreas, spleen, adrenals are unremarkable. Kidneys contain a small amount of contrast from the recent chest CT angiogram. The bladder is empty, containing a Dickens catheter.. Included lung bases demonstrate a large left pleural effusion, and compressive atelectasis of most of not all of the left lower lobe. There is a small right pleural effusion and less extensive right basilar atelectasis. There is pericardial thickening versus fluid. The bones demonstrate mild degenerative spondylosis changes. Small lucencies are seen within the bilateral iliac wings. Impression: Large pneumoperitoneum, consistent with perforated viscus. Fluid is also seen within the peritoneal space. Small amount contrast is also seen within the peritoneal space, particularly in the large mesenteric root and left pericolonic gutter collection. Contrast is also seen within the lumen of the thick-walled small bowel This probably represents extravasated vascular contrast from the previous chest CT angiogram and indicates hemorrhage into the small bowel lumen. However, the note in the electronic medical record indicates that the pneumoperitoneum is due to perforated descending colon. There is also extensive pericolonic edema surrounding the ascending colon, although this appears to involve the pericolonic fat rather than the colon wall. Marked wall thickening of the jejunum, consistent with enteritis. This may be inflammatory or ischemic. More distally, small bowel loops remain somewhat dilated, fluid-filled, but not thick walled Large left pleural effusion. Compressive atelectasis of most if not all of the left lower lobe. Small right pleural effusion and less extensive right basilar atelectasis Lucencies in the bilateral iliac wings, nonspecific, suspect these represent areas of physiologic rarefaction but foci of neoplasm not completely excludable. Consider bone scan for further evaluation Pericardial thickening versus fluid Other findings as noted, including Dickens catheter, degenerative spondylosis This agrees with the preliminary interpretation provided overnight by [facility] teleradiology service. Critical value findings phoned to patient's nurse by [facility] teleradiologist at 1644 on 07/08/[address] scanner at [facility] is accredited by the [employer] and the scans are performed using protocols designed to limit radiation exposure to as low as reasonably achievable to attain images of sufficient resolution adequate for diagnostic evaluation.
--- NOTE | 2017-07-09 10:46 | Diagnostic Imaging Report ---
Indication: Post intubation Technique: One view of the chest Comparison: 07/07/2017 Findings: Interim endotracheal intubation, endotracheal tube in good position approximately 5 cm above the jamin. Nasogastric tube is in place, tip projected beyond the edge of the image, probably at the level of the gastric antrum or beyond. A surgical drain is seen in the left upper quadrant. There upper abdominal midline skin margaret. There is again demonstrated a large left pleural effusion. Bibasilar atelectasis and smaller right pleural effusion are noted. Previously demonstrated bowel distention and pneumoperitoneum are no longer evident Impression: Satisfactory endotracheal and nasogastric intubation. Postsurgical changes, as described Stable left pleural effusion, right basilar atelectasis, and probable small right pleural effusion. This agrees with the preliminary interpretation provided overnight by [facility] teleradiology service.
--- NOTE | 2017-07-09 10:48 | Pulmonolgy Critical Care Note ---
Critical Care - Asmt/Plan Problems: (1) Acute respiratory failure (2) ARF (acute renal failure) (3) Perforated abdominal viscus (4) Pneumoperitoneum (5) COPD (chronic obstructive pulmonary disease) Respiratory: monitor respiratory rate, adjust FIO2, CXR, weaning trial, other - extubate Cardiac: continue to monitor HR/BP Renal: F/U I&O, keep IV fluid Infectious Disease: check cultures Gastrointestinal: continue feedings/current rate Endocrine: monitor blood sugar, check HgA1C, continue sliding scale insulin Hematologic: monitor H/H, transfuse if hgb<8.5 Neurologic: PRN Morphine, keep patient comfortable Affect: PRN ativan Prophylaxis: Protonix, Heparin Notes 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[place], 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, 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 Discussed with: nurses, consultants, ed case managerstrategic communications manager - Objective Last 24 Hour Vital Signs Date Time Temp Pulse Resp B/P (MAP) Pulse Ox O2 Delivery O2 Flow Rate FiO2 07/09/17 10:00 128 17 105/62 96 Mechanical Ventilator 50 07/09/17 09:00 128 17 116/77 99 Mechanical Ventilator 50 07/09/17 08:55 126 14 50 07/09/17 08:00 98.3 127 17 95/54 96 Mechanical Ventilator 50 98.3 07/09/17 08:00 50 07/09/17 08:00 125 07/09/17 07:18 127 13 50 07/09/17 07:00 128 17 99/51 98 Mechanical Ventilator 50 07/09/17 06:00 124 13 106/53 96 Mechanical Ventilator 50 07/09/17 05:09 126 11 50 07/09/17 05:00 128 12 73/29 98 Mechanical Ventilator 50 07/09/17 04:00 99.0 127 11 76/41 99 Mechanical Ventilator 50 99.0 07/09/17 04:00 50 07/09/17 03:36 125 07/09/17 03:29 120 12 50 07/09/17 03:00 128 12 92/54 98 Mechanical Ventilator 50 07/09/17 02:00 128 12 83/51 99 Mechanical Ventilator 50 07/09/17 01:25 128 12 50 07/09/17 01:00 128 12 82/51 97 Mechanical Ventilator 50 07/09/17 00:00 50 07/09/17 00:00 98.1 127 10 80/50 98 Mechanical Ventilator 50 98.1 07/08/17 23:54 127 07/08/17 23:19 127 10 50 07/08/17 23:00 125 12 99/51 98 Mechanical Ventilator 50 07/08/17 22:00 130 18 96/60 99 Mechanical Ventilator 50 07/08/17 21:00 98.4 125 16 96/60 98 Mechanical Ventilator 50 98.4 07/08/17 20:31 50 07/08/17 20:30 98.2 130 23 108/58 98 Mechanical Ventilator 50 98.2 07/08/17 20:20 131 14 97/60 97 Mechanical Ventilator 50 07/08/17 20:15 130 07/08/17 20:10 132 13 98/58 97 Mechanical Ventilator 50 07/08/17 19:55 135 15 109/57 99 Mechanical Ventilator 50 07/08/17 19:55 211.5 116 16 99 07/08/17 19:51 138 15 108/76 97 Mechanical Ventilator 50 07/08/17 19:46 Mechanical Ventilator 50 07/08/17 19:46 50 07/08/17 19:46 97 Mechanical Ventilator 50 07/08/17 19:46 100.9 137 11 118/61 97 Mechanical Ventilator 50 100.9 07/08/17 19:46 134 10 50 07/08/17 12:27 97.5 07/08/17 12:00 97.6 118 22 129/76 2 Nasal Cannula 2.0 97.6 07/08/17 12:00 128 07/08/17 11:57 97.5 Status: awake Condition: critical HEENT: atraumatic Lungs: clear Heart: HR/BP stable Abdomen: soft, non-tender Extremities: edema Critical Care - Subjective ROS Limited/Unobtainable: No Interval Events: awake, looks comfortable Condition: critical FI02: 50 Vent Support Breath Rate: 10 Vent Support Mode: AC Vent Tidal Volume: 600 Sputum Amount: Scant PIP: 20 Fluids: d5N'S 100 cc/hour I&O: Intake and Output 07/08/17 07/09/17 19:00 07:00 Intake Total 5562.5 ml Output Total 1300 ml 1650 ml Balance -1300 ml 3912.5 ml Intake Oral 0 ml IV Total 4212.5 ml Blood Product 600 ml Other 750 ml Output Urine Total 1300 ml 720 ml Gastric Drainage Total 0 ml Drainage Total 330 ml Estimated Blood Loss 600 ml # Bowel Movements 2 CXR: LLL effusion, infiltrate ET-Tube: 7.5 ET Position: 23 Labs: Laboratory Tests Test 07/08/17 14:40 07/08/17 21:11 07/09/17 05:45 Prothrombin Time 11.2 SEC (9.30-11.50) Prothromb Time International Ratio 1.1 (0.9-1.1) Activated Partial Thromboplast Time 30 SEC (23-33) Arterial Blood pH 7.338 (7.350-7.450) Arterial Blood Partial Pressure CO2 44.2 mmHg (35.0-45.0) Arterial Blood Partial Pressure O2 66.7 mmHg (75.0-100.0) L Arterial Blood HCO3 23.2 mmol/L (22.0-26.0) Arterial Blood Oxygen Saturation 92.5 % (92.0-98.0) Arterial Blood Base Excess -2.7 Enio Test Positive White Blood Count 15.5 K/UL (4.8-10.8) H Red Blood Count 4.92 M/UL (4.70-6.10) Hemoglobin 15.8 G/DL (14.2-18.0) # Hematocrit 45.7 % (42.0-52.0) # Mean Corpuscular Volume 93 FL (80-99) Mean Corpuscular Hemoglobin 32.2 PG (27.0-31.0) H Mean Corpuscular Hemoglobin Concent 34.7 G/DL (32.0-36.0) Red Cell Distribution Width 13.2 % (11.6-14.8) Platelet Count 161 K/UL (150-450) Mean Platelet Volume 6.4 FL (6.5-10.1) L Neutrophils (%) (Auto) % (45.0-75.0) Lymphocytes (%) (Auto) % (20.0-45.0) Monocytes (%) (Auto) % (1.0-10.0) Eosinophils (%) (Auto) % (0.0-3.0) Basophils (%) (Auto) % (0.0-2.0) Differential Total Cells Counted 100 Neutrophils % (Manual) 91 % (45-75) H Lymphocytes % (Manual) 4 % (20-45) L Monocytes % (Manual) 5 % (1-10) Eosinophils % (Manual) 0 % (0-3) Basophils % (Manual) 0 % (0-2) Band Neutrophils 0 % (0-8) Platelet Estimate Adequate Platelet Morphology Normal Red Blood Cell Morphology Normal Sodium Level 136 MMOL/L (136-145) Potassium Level 4.6 MMOL/L (3.5-5.1) Chloride Level 104 MMOL/L (98-107) Carbon Dioxide Level 25 MMOL/L (21-32) Anion Gap 7 mmol/L (5-15) Blood Urea Nitrogen 22 mg/dL (7-18) H Creatinine 1.4 MG/DL (0.55-1.30) #H Estimat Glomerular Filtration Rate 54.3 mL/min (>60) Glucose Level 185 MG/DL (74-106) #H Uric Acid 4.4 MG/DL (2.6-7.2) Calcium Level 6.3 MG/DL (8.5-10.1) #L Phosphorus Level 5.8 MG/DL (2.5-4.9) H Magnesium Level 1.6 MG/DL (1.8-2.4) L Total Bilirubin 0.8 MG/DL (0.2-1.0) Aspartate Amino Transf (AST/SGOT) 49 U/L (15-37) H Alanine Aminotransferase (ALT/SGPT) 17 U/L (12-78) Alkaline Phosphatase 70 U/L (46-116) Total Creatine Kinase 354 U/L (26-308) H Total Protein 3.8 G/DL (6.4-8.2) L Albumin 1.1 G/DL (3.4-5.0) L Globulin 2.7 g/dL Albumin/Globulin Ratio 0.4 (1.0-2.7) L YUVAL HATCH Jul 09, 2017 10:48
--- NOTE | 2017-07-09 10:56 | Nephrology Progress Note ---
Assessment/Plan Problem List: (1) ARF (acute renal failure) (2) UTI (urinary tract infection) (3) Psychiatric disorder (4) Acute abdomen Assessment Status: acute renal failure- extended left colectomy due to perf transverse colostomy creation Plan Plan: Post op day 1 ( OP 07/08/17) Hydrate- Dickens- 2D echo normal Ej Fx Albumin bollous monitor renal parameters Subjective ROS Limited/Unobtainable: Yes Objective Objective Last 24 Hour Vital Signs Date Time Temp Pulse Resp B/P (MAP) Pulse Ox O2 Delivery O2 Flow Rate FiO2 07/09/17 10:00 128 17 105/62 96 Mechanical Ventilator 50 07/09/17 09:00 128 17 116/77 99 Mechanical Ventilator 50 07/09/17 08:55 126 14 50 07/09/17 08:00 98.3 127 17 95/54 96 Mechanical Ventilator 50 98.3 07/09/17 08:00 50 07/09/17 08:00 125 07/09/17 07:18 127 13 50 07/09/17 07:00 128 17 99/51 98 Mechanical Ventilator 50 07/09/17 06:00 124 13 106/53 96 Mechanical Ventilator 50 07/09/17 05:09 126 11 50 07/09/17 05:00 128 12 73/29 98 Mechanical Ventilator 50 07/09/17 04:00 99.0 127 11 76/41 99 Mechanical Ventilator 50 99.0 07/09/17 04:00 50 07/09/17 03:36 125 07/09/17 03:29 120 12 50 07/09/17 03:00 128 12 92/54 98 Mechanical Ventilator 50 07/09/17 02:00 128 12 83/51 99 Mechanical Ventilator 50 07/09/17 01:25 128 12 50 07/09/17 01:00 128 12 82/51 97 Mechanical Ventilator 50 07/09/17 00:00 50 07/09/17 00:00 98.1 127 10 80/50 98 Mechanical Ventilator 50 98.1 07/08/17 23:54 127 07/08/17 23:19 127 10 50 07/08/17 23:00 125 12 99/51 98 Mechanical Ventilator 50 07/08/17 22:00 130 18 96/60 99 Mechanical Ventilator 50 07/08/17 21:00 98.4 125 16 96/60 98 Mechanical Ventilator 50 98.4 07/08/17 20:31 50 07/08/17 20:30 98.2 130 23 108/58 98 Mechanical Ventilator 50 98.2 07/08/17 20:20 131 14 97/60 97 Mechanical Ventilator 50 07/08/17 20:15 130 07/08/17 20:10 132 13 98/58 97 Mechanical Ventilator 50 07/08/17 19:55 135 15 109/57 99 Mechanical Ventilator 50 07/08/17 19:55 211.5 116 16 99 07/08/17 19:51 138 15 108/76 97 Mechanical Ventilator 50 07/08/17 19:46 Mechanical Ventilator 50 07/08/17 19:46 50 07/08/17 19:46 97 Mechanical Ventilator 50 07/08/17 19:46 100.9 137 11 118/61 97 Mechanical Ventilator 50 100.9 07/08/17 19:46 134 10 50 07/08/17 12:27 97.5 07/08/17 12:00 97.6 118 22 129/76 2 Nasal Cannula 2.0 97.6 07/08/17 12:00 128 07/08/17 11:57 97.5 Intake and Output 07/08/17 07/09/17 19:00 07:00 Intake Total 5562.5 ml Output Total 1300 ml 1650 ml Balance -1300 ml 3912.5 ml Intake Oral 0 ml IV Total 4212.5 ml Blood Product 600 ml Other 750 ml Output Urine Total 1300 ml 720 ml Gastric Drainage Total 0 ml Drainage Total 330 ml Estimated Blood Loss 600 ml # Bowel Movements 2 Laboratory Tests 07/08/17 14:40: Prothrombin Time 11.2, Prothromb Time International Ratio 1.1, Activated Partial Thromboplast Time 30 07/08/17 21:11: Arterial Blood pH 7.338L, Arterial Blood Partial Pressure CO2 44.2, Arterial Blood Partial Pressure O2 66.7L, Arterial Blood HCO3 23.2, Arterial Blood Oxygen Saturation 92.5, Arterial Blood Base Excess -2.7, Enio Test Positive 07/09/17 05:45: White Blood Count 15.5H, Red Blood Count 4.92, Hemoglobin 15.8#, Hematocrit 45.7 #, Mean Corpuscular Volume 93, Mean Corpuscular Hemoglobin 32.2H, Mean Corpuscular Hemoglobin Concent 34.7, Red Cell Distribution Width 13.2, Platelet Count 161, Mean Platelet Volume 6.4L, Neutrophils (%) (Auto) , Lymphocytes (%) ( Auto) , Monocytes (%) (Auto) , Eosinophils (%) (Auto) , Basophils (%) (Auto) , Differential Total Cells Counted 100, Neutrophils % (Manual) 91H, Lymphocytes % (Manual) 4L, Monocytes % (Manual) 5, Eosinophils % (Manual) 0, Basophils % ( Manual) 0, Band Neutrophils 0, Platelet Estimate Adequate, Platelet Morphology Normal, Red Blood Cell Morphology Normal, Sodium Level 136, Potassium Level 4.6 , Chloride Level 104, Carbon Dioxide Level 25, Anion Gap 7, Blood Urea Nitrogen 22H, Creatinine 1.4#H, Estimat Glomerular Filtration Rate 54.3, Glucose Level 185#H, Uric Acid 4.4, Calcium Level 6.3#L, Phosphorus Level 5.8H, Magnesium Level 1.6L, Total Bilirubin 0.8, Aspartate Amino Transf (AST/SGOT) 49H, Alanine Aminotransferase (ALT/SGPT) 17, Alkaline Phosphatase 70, Total Creatine Kinase 354H, Total Protein 3.8L, Albumin 1.1L, Globulin 2.7, Albumin/Globulin Ratio 0.4L Height (Feet): 5 Height (Inches): 9.00 Weight (Pounds): 158 General Appearance: no apparent distress EENT: other - on vent Abdomen: distended, other - darins and colostomy Objective no other change NOEMY MARK Jul 09, 2017 10:56
--- NOTE | 2017-07-09 12:03 | GI Progress Note ---
Assessment/Plan Problems: (1) Therapeutic opioid-induced constipation (OIC) ICD Codes: K59.03 - Drug induced constipation; T40.2X5A - Adverse effect of other opioids, initial encounter SNOMED: 588648422115055 (2) Psychiatric disorder ICD Codes: F99 - Mental disorder, not otherwise specified SNOMED: 03815526, 345702068 (3) Amphetamine abuse ICD Codes: F15.10 - Other stimulant abuse, uncomplicated SNOMED: 75358779 (4) Opiate dependence ICD Codes: F11.20 - Opioid dependence, uncomplicated SNOMED: 22532722 Qualifiers: Qualified Codes: F11.20 - Opioid dependence, uncomplicated (5) Acute constipation ICD Codes: K59.00 - Constipation, unspecified SNOMED: 113091723 Status: unchanged Status Narrative Discussed with Dr. Castro. Assessment/Plan s/p Exploratory laparotomy, partial bowel resection fu surgical recs NPO + IVFs colostomy care prn transfusions serial imaging prn fu labs Subjective Subjective limited, in ICU awake / alert Objective Last 24 Hour Vital Signs Date Time Temp Pulse Resp B/P (MAP) Pulse Ox O2 Delivery O2 Flow Rate FiO2 07/09/17 11:11 127 24 50 07/09/17 11:00 128 17 128/70 94 Mechanical Ventilator 50 07/09/17 10:00 128 17 105/62 96 Mechanical Ventilator 50 07/09/17 09:00 128 17 116/77 99 Mechanical Ventilator 50 07/09/17 08:55 126 14 50 07/09/17 08:00 98.3 127 17 95/54 96 Mechanical Ventilator 50 98.3 07/09/17 08:00 50 07/09/17 08:00 125 07/09/17 07:18 127 13 50 07/09/17 07:00 128 17 99/51 98 Mechanical Ventilator 50 07/09/17 06:00 124 13 106/53 96 Mechanical Ventilator 50 07/09/17 05:09 126 11 50 07/09/17 05:00 128 12 73/29 98 Mechanical Ventilator 50 07/09/17 04:00 99.0 127 11 76/41 99 Mechanical Ventilator 50 99.0 07/09/17 04:00 50 07/09/17 03:36 125 07/09/17 03:29 120 12 50 07/09/17 03:00 128 12 92/54 98 Mechanical Ventilator 50 07/09/17 02:00 128 12 83/51 99 Mechanical Ventilator 50 07/09/17 01:25 128 12 50 07/09/17 01:00 128 12 82/51 97 Mechanical Ventilator 50 07/09/17 00:00 50 07/09/17 00:00 98.1 127 10 80/50 98 Mechanical Ventilator 50 98.1 07/08/17 23:54 127 07/08/17 23:19 127 10 50 07/08/17 23:00 125 12 99/51 98 Mechanical Ventilator 50 07/08/17 22:00 130 18 96/60 99 Mechanical Ventilator 50 07/08/17 21:00 98.4 125 16 96/60 98 Mechanical Ventilator 50 98.4 07/08/17 20:31 50 07/08/17 20:30 98.2 130 23 108/58 98 Mechanical Ventilator 50 98.2 07/08/17 20:20 131 14 97/60 97 Mechanical Ventilator 50 07/08/17 20:15 130 07/08/17 20:10 132 13 98/58 97 Mechanical Ventilator 50 07/08/17 19:55 135 15 109/57 99 Mechanical Ventilator 50 07/08/17 19:55 211.5 116 16 99 07/08/17 19:51 138 15 108/76 97 Mechanical Ventilator 50 07/08/17 19:46 Mechanical Ventilator 50 07/08/17 19:46 50 07/08/17 19:46 97 Mechanical Ventilator 50 07/08/17 19:46 100.9 137 11 118/61 97 Mechanical Ventilator 50 100.9 07/08/17 19:46 134 10 50 07/08/17 12:27 97.5 Intake and Output 07/08/17 07/09/17 19:00 07:00 Intake Total 5562.5 ml Output Total 1300 ml 1650 ml Balance -1300 ml 3912.5 ml Intake Oral 0 ml IV Total 4212.5 ml Blood Product 600 ml Other 750 ml Output Urine Total 1300 ml 720 ml Gastric Drainage Total 0 ml Drainage Total 330 ml Estimated Blood Loss 600 ml # Bowel Movements 2 Laboratory Tests Test 07/08/17 14:40 07/08/17 21:11 07/09/17 05:45 Prothrombin Time 11.2 SEC (9.30-11.50) Prothromb Time International Ratio 1.1 (0.9-1.1) Activated Partial Thromboplast Time 30 SEC (23-33) Arterial Blood pH 7.338 (7.350-7.450) Arterial Blood Partial Pressure CO2 44.2 mmHg (35.0-45.0) Arterial Blood Partial Pressure O2 66.7 mmHg (75.0-100.0) L Arterial Blood HCO3 23.2 mmol/L (22.0-26.0) Arterial Blood Oxygen Saturation 92.5 % (92.0-98.0) Arterial Blood Base Excess -2.7 Enio Test Positive White Blood Count 15.5 K/UL (4.8-10.8) H Red Blood Count 4.92 M/UL (4.70-6.10) Hemoglobin 15.8 G/DL (14.2-18.0) # Hematocrit 45.7 % (42.0-52.0) # Mean Corpuscular Volume 93 FL (80-99) Mean Corpuscular Hemoglobin 32.2 PG (27.0-31.0) H Mean Corpuscular Hemoglobin Concent 34.7 G/DL (32.0-36.0) Red Cell Distribution Width 13.2 % (11.6-14.8) Platelet Count 161 K/UL (150-450) Mean Platelet Volume 6.4 FL (6.5-10.1) L Neutrophils (%) (Auto) % (45.0-75.0) Lymphocytes (%) (Auto) % (20.0-45.0) Monocytes (%) (Auto) % (1.0-10.0) Eosinophils (%) (Auto) % (0.0-3.0) Basophils (%) (Auto) % (0.0-2.0) Differential Total Cells Counted 100 Neutrophils % (Manual) 91 % (45-75) H Lymphocytes % (Manual) 4 % (20-45) L Monocytes % (Manual) 5 % (1-10) Eosinophils % (Manual) 0 % (0-3) Basophils % (Manual) 0 % (0-2) Band Neutrophils 0 % (0-8) Platelet Estimate Adequate Platelet Morphology Normal Red Blood Cell Morphology Normal Sodium Level 136 MMOL/L (136-145) Potassium Level 4.6 MMOL/L (3.5-5.1) Chloride Level 104 MMOL/L (98-107) Carbon Dioxide Level 25 MMOL/L (21-32) Anion Gap 7 mmol/L (5-15) Blood Urea Nitrogen 22 mg/dL (7-18) H Creatinine 1.4 MG/DL (0.55-1.30) #H Estimat Glomerular Filtration Rate 54.3 mL/min (>60) Glucose Level 185 MG/DL (74-106) #H Uric Acid 4.4 MG/DL (2.6-7.2) Calcium Level 6.3 MG/DL (8.5-10.1) #L Phosphorus Level 5.8 MG/DL (2.5-4.9) H Magnesium Level 1.6 MG/DL (1.8-2.4) L Total Bilirubin 0.8 MG/DL (0.2-1.0) Aspartate Amino Transf (AST/SGOT) 49 U/L (15-37) H Alanine Aminotransferase (ALT/SGPT) 17 U/L (12-78) Alkaline Phosphatase 70 U/L (46-116) Total Creatine Kinase 354 U/L (26-308) H Total Protein 3.8 G/DL (6.4-8.2) L Albumin 1.1 G/DL (3.4-5.0) L Globulin 2.7 g/dL Albumin/Globulin Ratio 0.4 (1.0-2.7) L Microbiology Date/Time Source Procedure Growth Status 07/08/17 16:33 Bowel Gram Stain Pending Resulted 07/08/17 16:33 Aerobic Culture - Preliminary Gram Negative Bacillus 1 Resulted 07/08/17 16:33 Bowel Anaerobic Culture Pending Resulted Height (Feet): 5 Height (Inches): 9.00 Weight (Pounds): 158 General Appearance: no apparent distress, alert Cardiovascular: normal rate Respiratory/Chest: normal breath sounds, no respiratory distress, other - intubated Abdominal Exam: normal bowel sounds, non tender, soft, other - NGT Extremities: non-tender Samia Albarran N.Airam Jul 09, 2017 12:03
--- NOTE | 2017-07-09 13:23 | General Progress Note ---
Progress Note Progress Note Surgery: POD #1 s/p ex lap with left colectomy and transverse colostomy for perforated left colon. doing well. was able to extubate today. alert and awake following commands. c/ o pain upper LUQ spleen drain with serosang output. lower pelvic drain with serous output. ostomy pink, congested, but viable. wound c/d/i NG tube with minimal bilious output horan with good uop -NPO, IV fluids, IV abx, NG tube -as improves will get out of bed -unfortunately given psych history may have some difficulty with following orders and commands -will follow with recs. Gilberto Michelle Jul 09, 2017 13:23
[2017-07-09] MEDS ORDERED: Haloperidol 5mg/ml Inj IM STA (13:48)
[2017-07-09] MEDS ORDERED: Haloperidol 5mg/ml Inj ONE (14:52)
[2017-07-09] MEDS ORDERED: Haloperidol Lactate 5 MG in D5W 55 ML IVPB ONE (15:00)
--- NOTE | 2017-07-09 20:25 | Cardiology Progress Note ---
Assessment/Plan Assessment/Plan 1. Pleuritic chest pain. 2. Abdominal distention and pain. 3. Questionable history of colon cancer per records from [facility], not completely clear. 4. Psychiatric disorder. 5. Urine drug screen positive for amphetamines. 6. History of opiate use previously. 7. Anxiety. 8. Renal insufficiency, responded to IV fluids. 9. Rhabdomyolysis during this hospitalization due to significantly elevated CPK of 1543 at the time of admission that is resolved. 10. perforated left colon with prolonged inflammatory reaction, gross spillage, bowel ischemia 11. renal isnuf duplex not performed all trop neg ct performed to day no resutl yet he does not look uncomfortable tele reviewed sinus tachy noted yest evt nwo off vent is tchypnic awake and responsive his respiration appear tenuous Subjective Cardiovascular: Reports: chest pain Respiratory: Reports: shortness of breath Gastrointestinal/Abdominal: Reports: abdominal pain Genitourinary: Denies: burning Objective Last 24 Hour Vital Signs Date Time Temp Pulse Resp B/P (MAP) Pulse Ox O2 Delivery O2 Flow Rate FiO2 07/09/17 19:00 Nasal Cannula 3.0 32 07/09/17 19:00 131 24 104/45 100 Nasal Cannula 3.0 07/09/17 19:00 100 Nasal Cannula 3.0 32 07/09/17 19:00 131 24 Nasal Cannula 3.0 32 07/09/17 18:00 129 22 118/51 97 Nasal Cannula 3.0 07/09/17 17:00 128 22 112/58 96 Nasal Cannula 3.0 07/09/17 16:00 125 07/09/17 16:00 98.0 126 26 129/64 96 Nasal Cannula 3.0 98.0 07/09/17 15:00 125 24 103/48 95 Nasal Cannula 3.0 07/09/17 14:00 125 26 94/40 95 Nasal Cannula 3.0 07/09/17 13:15 98 Nasal Cannula 3.0 07/09/17 13:13 Nasal Cannula 3.0 07/09/17 13:12 Nasal Cannula 3.0 07/09/17 13:00 130 17 135/63 95 Mechanical Ventilator 50 07/09/17 12:00 131 07/09/17 12:00 50 07/09/17 12:00 97.7 128 17 96/58 95 Mechanical Ventilator 50 97.7 07/09/17 11:35 50 07/09/17 11:11 127 24 50 07/09/17 11:00 128 17 128/70 94 Mechanical Ventilator 50 07/09/17 10:00 128 17 105/62 96 Mechanical Ventilator 50 07/09/17 09:00 128 17 116/77 99 Mechanical Ventilator 50 07/09/17 08:55 126 14 50 07/09/17 08:00 98.3 127 17 95/54 96 Mechanical Ventilator 50 98.3 07/09/17 08:00 50 07/09/17 08:00 125 07/09/17 07:18 127 13 50 07/09/17 07:00 128 17 99/51 98 Mechanical Ventilator 50 07/09/17 06:00 124 13 106/53 96 Mechanical Ventilator 50 07/09/17 05:09 126 11 50 07/09/17 05:00 128 12 73/29 98 Mechanical Ventilator 50 07/09/17 04:00 99.0 127 11 76/41 99 Mechanical Ventilator 50 99.0 07/09/17 04:00 50 07/09/17 03:36 125 07/09/17 03:29 120 12 50 07/09/17 03:00 128 12 92/54 98 Mechanical Ventilator 50 07/09/17 02:00 128 12 83/51 99 Mechanical Ventilator 50 07/09/17 01:25 128 12 50 07/09/17 01:00 128 12 82/51 97 Mechanical Ventilator 50 07/09/17 00:00 50 07/09/17 00:00 98.1 127 10 80/50 98 Mechanical Ventilator 50 98.1 07/08/17 23:54 127 07/08/17 23:19 127 10 50 07/08/17 23:00 125 12 99/51 98 Mechanical Ventilator 50 07/08/17 22:00 130 18 96/60 99 Mechanical Ventilator 50 07/08/17 21:00 98.4 125 16 96/60 98 Mechanical Ventilator 50 98.4 07/08/17 20:31 50 07/08/17 20:30 98.2 130 23 108/58 98 Mechanical Ventilator 50 98.2 General Appearance: alert, other - tachypnic Neck: supple Cardiovascular: normal rate, tachycardia Respiratory/Chest: rhonchi - bilaterally Abdomen: normal bowel sounds, non tender, soft Extremities: no swelling Intake and Output 07/08/17 07/09/17 19:00 07:00 Intake Total 5562.5 ml Output Total 1300 ml 1650 ml Balance -1300 ml 3912.5 ml Intake Oral 0 ml IV Total 4212.5 ml Blood Product 600 ml Other 750 ml Output Urine Total 1300 ml 720 ml Gastric Drainage Total 0 ml Drainage Total 330 ml Estimated Blood Loss 600 ml # Bowel Movements 2 Laboratory Tests Test 07/08/17 21:11 07/09/17 05:45 Arterial Blood pH 7.338 (7.350-7.450) Arterial Blood Partial Pressure CO2 44.2 mmHg (35.0-45.0) Arterial Blood Partial Pressure O2 66.7 mmHg (75.0-100.0) L Arterial Blood HCO3 23.2 mmol/L (22.0-26.0) Arterial Blood Oxygen Saturation 92.5 % (92.0-98.0) Arterial Blood Base Excess -2.7 Enio Test Positive White Blood Count 15.5 K/UL (4.8-10.8) H Red Blood Count 4.92 M/UL (4.70-6.10) Hemoglobin 15.8 G/DL (14.2-18.0) # Hematocrit 45.7 % (42.0-52.0) # Mean Corpuscular Volume 93 FL (80-99) Mean Corpuscular Hemoglobin 32.2 PG (27.0-31.0) H Mean Corpuscular Hemoglobin Concent 34.7 G/DL (32.0-36.0) Red Cell Distribution Width 13.2 % (11.6-14.8) Platelet Count 161 K/UL (150-450) Mean Platelet Volume 6.4 FL (6.5-10.1) L Neutrophils (%) (Auto) % (45.0-75.0) Lymphocytes (%) (Auto) % (20.0-45.0) Monocytes (%) (Auto) % (1.0-10.0) Eosinophils (%) (Auto) % (0.0-3.0) Basophils (%) (Auto) % (0.0-2.0) Differential Total Cells Counted 100 Neutrophils % (Manual) 91 % (45-75) H Lymphocytes % (Manual) 4 % (20-45) L Monocytes % (Manual) 5 % (1-10) Eosinophils % (Manual) 0 % (0-3) Basophils % (Manual) 0 % (0-2) Band Neutrophils 0 % (0-8) Platelet Estimate Adequate Platelet Morphology Normal Red Blood Cell Morphology Normal Sodium Level 136 MMOL/L (136-145) Potassium Level 4.6 MMOL/L (3.5-5.1) Chloride Level 104 MMOL/L (98-107) Carbon Dioxide Level 25 MMOL/L (21-32) Anion Gap 7 mmol/L (5-15) Blood Urea Nitrogen 22 mg/dL (7-18) H Creatinine 1.4 MG/DL (0.55-1.30) #H Estimat Glomerular Filtration Rate 54.3 mL/min (>60) Glucose Level 185 MG/DL (74-106) #H Uric Acid 4.4 MG/DL (2.6-7.2) Calcium Level 6.3 MG/DL (8.5-10.1) #L Phosphorus Level 5.8 MG/DL (2.5-4.9) H Magnesium Level 1.6 MG/DL (1.8-2.4) L Total Bilirubin 0.8 MG/DL (0.2-1.0) Aspartate Amino Transf (AST/SGOT) 49 U/L (15-37) H Alanine Aminotransferase (ALT/SGPT) 17 U/L (12-78) Alkaline Phosphatase 70 U/L (46-116) Total Creatine Kinase 354 U/L (26-308) H Total Protein 3.8 G/DL (6.4-8.2) L Albumin 1.1 G/DL (3.4-5.0) L Globulin 2.7 g/dL Albumin/Globulin Ratio 0.4 (1.0-2.7) L Microbiology Date/Time Source Procedure Growth Status 07/08/17 16:33 Bowel Gram Stain - Final Resulted 07/08/17 16:33 Aerobic Culture - Preliminary Gram Negative Bacillus 1 Resulted 07/08/17 16:33 Bowel Anaerobic Culture Pending Resulted ANTELMO BAUMAN Jul 09, 2017 20:25
[2017-07-09] MEDS ORDERED: Haloperidol 5mg/ml Inj IM SCH (21:00)
[2017-07-09] MEDS ORDERED: Norepinephrine Bitartrate 4 MG in NS 250 ML IV SCH (21:30)
--- NOTE | 2017-07-09 22:00 | Operative Note - Dictated ---
DATE OF OPERATION: 07/08/2017 PREOPERATIVE DIAGNOSES: 1. Perforated viscus. 2. Pneumoperitoneum. 3. Acute abdomen with peritonitis. POSTOPERATIVE DIAGNOSES: 1. Perforated left colon with prolonged inflammatory reaction, gross spillage, and bowel ischemia. 2. Intra-abdominal abscess. PROCEDURE PERFORMED: 1. Exploratory laparotomy. 2. Extended left colectomy. 3. Transverse colostomy creation. 4. Evacuation of intra-abdominal abscess. 5. Abdominal washout with drain placement. ATTENDING SURGEON: Gilberto Michelle M.D. GENERAL LABOR FORKLIFT OPERATOR: None. ANESTHESIOLOGIST: Reji Moran M.D. ANESTHESIA: General POST PRODUCTION ASSISTANT. SPECIMENS: 1. Cultures of intra-abdominal abscess. 2. Partial omentectomy. 3. Extended left colectomy. COMPLICATIONS: None. ESTIMATED BLOOD LOSS: 600 mL. IV FLUIDS: Please see anesthesia records. DRAINS: Two 19-Polish Wally drains left in the abdomen, one in the pelvis and one in the left upper quadrant. IMPLANTS: None. WOUND CLASSIFICATION: Class IV. COUNTS: Sponge and needle count correct x2. INDICATIONS FOR PROCEDURE: This is a 46-year-old male who presented to [facility] with worsening abdominal pain. The patient states that he was recently at [facility] for treatment of abdominal pain and stated that he was diagnosed with potential colon cancer and constipation, but unfortunately those records were not available when the patient was initially seen by myself. During admission, the patient was noted to be severely constipated. Initial CAT scans did not demonstrate pathology for potential bowel motility issues from history of drug abuse. During admission, the patient's abdominal pain worsened, and a CT scan and KUB performed, which identified free air. Surgery was called for evaluation. When the patient was seen, he was identified to have an acute abdomen and radiological examination significant for free air, which was not noted on prior CT and a new finding. Given these findings, exploration was recommended. Long discussion was had with the patient preoperatively about the findings and the potential operative plans including exploratory laparotomy, possible bowel resection, and possible and likely colostomy and drain placement as well as bowel injury, bleeding, infection, potential open abdomen and reoperation. The patient expressed understanding and consented to surgery, which was performed on 07/08/2017. OPERATIVE NOTE: The patient was taken to the operating room and placed on operating table in supine position with bilateral arms out. All bony prominences were well padded. The patient already had a Dickens catheter prior to entering the operating room. SCDs were placed. Preoperative time-out was taken identifying the patient, procedure, operative staff, and surgical staff. General anesthesia was induced and the patient was intubated. The abdomen was then clipped, prepped and draped in standard surgical fashion. NG tube was placed by the anesthesiologist. We began by making a midline abdominal incision. Incision was taken down through the skin down to the subcutaneous tissue and fascia. The fascia was incised and entry into the abdomen was identified. Electrocautery was used for hemostasis as necessary. Upon entering the abdomen, a hostileabdomen was noted immediately. The omentum was significantly thickened and adhesed to the small bowel and into the left lower quadrant. There was significant inflammatory process throughout the abdomen including a thickening of almost the entire peritoneal lining. Small bowel was somewhat adhesed to each other and socked in without normal loose bowel being noted. There were no significant adhesions from a prior surgery or anything like that, but rather a postinflammatory process. The omentum was carefully dissected off the small bowel and lifted and excised. Partial omentectomy was performed using a Thunderbeat energy device given the amount of infectious residue and thickening of the diseased omentum. This was sent to pathology for review. At this time, meticulous dissection was done of the small bowel beginning with identifying the ligament of Treitz. The proximal portion of the jejunum was significantly thickened and had a rind of inflammatory infectious tissue on it. I made my way down towards the mid jejunum. The bowel started looking more normal and was easily dissected free until the ileocecal valve. The cecum was then identified and the appendix was not noted and likely the patient had a prior appendectomy, which was consistent with the right lower quadrant McBurney's incision that was well healed. The cecum, ascending colon, and hepatic flexure were evaluated and noted to be dilated and thickened with thickening of the surrounding peritoneum. At this time, the transverse colon was identified and the right proximal transverse colon was noted to be okay. As I made my way distally around the splenic flexure and the left transverse and descending colon, there was significant amount of thickening and significant disease process with some areas of mild ischemia noted and in the descending colon around the descending and sigmoid junction, there was a gross perforation with gross spillage of bowel contents noted in the area. This area was significantly thickened and diseased and went down towards the mid sigmoid colon in an extended fashion. The pericolic fat were thickened and diseased and it seemed as if this inflammatory process had been ongoing for some time now likely. At this time, the remainder of the abdomen was inspected and there was a fluid collection/pelvic abscess, which was evacuated. There was a fluid collection in the right upper quadrant around the liver, which was evacuated and a large left upper quadrant subphrenic abscess with significant tissue rind and thickening around the stomach, spleen, peritoneum, and diaphragm in that location. Cultures of these abscesses were sent for micro. At this time, decision was made to proceed with excising out the diseased portion of the colon and eliminating the source. There was a significant amount of thickening in the peritoneum and white line of Toldt was easily identified in the left colon. The distal portion of the sigmoid colon that was healthy was identified and divided, and a window was made in the mesentery, and division was done at close to the mid to distal sigmoid/rectosigmoid junction using a linear 75 mm DWAIN stapler. Once this was completed, the mesentery was divided using a Thunderbeat energy device and taken proximally. Once the sigmoid arteries were identified, they were clamped and tied with #0 silk tie. Then, I worked proximally towards the left colic artery, which was identified and tied off with a #0 silk tie as well. Working from the medial to lateral aspect, the colon was slowly mobilized off its peritoneal attachments, but there was a significant amount of thickening around the left kidney and some of Gerota's fascia was excised with the colon given that this was located around the area of the mid Gerota's fascia where the perforation was located. This was likely a stercoral perforation of prolonged stool impaction. Following this, the splenic flexure was taken down and the middle colic was identified ensuring to leave the right branch of the middle colic. Given the amount of extensive disease process and inflammatory process noted with some mild bowel ischemia given the extent of dissection needed to remove the perforated portion of the colon, extended left colectomy was performed and a proximal point just distal to the right branch of the middle colic artery was identified and the bowel was divided with a linear DWAIN stapler. At this point, once the specimen was completely excised, it was sent to pathology for review. At this time, of note there was significant thickening and inflammatory process in the left upper quadrant around the area where the large abscess was noted. Following this, the gastrocolic ligament was divided and the lesser sac was entered and no abscess was noted around lesser sac. The remainder of the abdomen was inspected. NG tube was palpated in the stomach and noted to be in appropriate positioning. The stomach was evaluated and no perforation of the stomach was noted, but there was significant thickening around the left subcostal area. The first portion the duodenum was evaluated and otherwise normal. The remainder of the small bowel was run from the ligament of Treitz to the ileocecal valve without noting some thickening in the proximal jejunum with serosal tears that were repaired using 3-0 silk sutures. The cecum, ascending colon, and the remaining portion of the transverse colon looked viable without any ischemia or gross disease. The white line of Toldt was identified on the right and taken down and the colon mobilized around the hepatic flexure with some fraying from the lateral to medial visceral rotation. At this time, the abdomen was then washed out with close to about 10 liters of warm normal saline evaluating the liver gallbladder and all the organs making sure that no other abscesses or abnormalities were noted. Once all infectious process that could be cleared was diluted and cleared, the abdomen was evaluated and both ureters were identified and noted to be preserved. The rectal stump was otherwise healthy and a 0 Prolene suture was placed for later takedown when necessary after colostomy creation. At this time, two drains were placed through the right abdominal wall with the lower one being placed into the pelvis and upper one being placed into the left upper quadrant where the large abscess was identified and cleared. At this time, we turned our attention to making a colostomy given the primary anastomosis would not be appropriate in this situation. Given the amount of cecum, ascending, and transverse colon remaining, a colostomy placement in the left abdomen was appropriate, unfortunately needed to be placed little bit higher than usual given need for preservation of the mid colic artery. A left mid to upper abdominal colostomy site was created and the bowel brought through without complication. At this time, it was noted to be appropriate without any issues with no ischemia or other abnormalities noted. The bowel was significantly dilated prior to beginning the procedure and continued to stay dilated and fairly lax. At this time, given the amount of disease and the patient's condition, decision was made to mature the colostomy first prior to closing the abdomen to ensure that no retraction or ischemia was noted within the mucosal wall requiring reoperation. The staple line was excised and the bowel was evaluated and noted to be viable. Multiple 3-0 Vicryl sutures were used to mature the colostomy without complication. Once this was completed, a dressing was placed over the colostomy, and gloves and gowns were changed, and we turned our attention to the abdominal fascial incision, which then was closed using a #0 looped PDS suture. Following completion of the abdominal closure, the wound was irrigated and cleansed and loosely reapproximated using skin margaret. Sterile dressings were applied followed by a colostomy bag once sterile dressings were in place. The patient tolerated the procedure well, was then taken to the intensive care unit in stable condition. Gilberto Michelle M.D. DR: TYLER JOB#: [id number] CC: ONDINA
--- NOTE | 2017-07-09 22:13 | Infectious Diseases Prog Note ---
Assessment/Plan Assessment/Plan ASSESSMENT: The patient is a 46-year-old male with; Leukocytosis, worsen history of diarrhea, SP Bowel perf s/p ex lap with left colectomy and transverse colostomy for perforated left colon. CT : Evidence of perforation of hollow viscus with extensive amount of free air in the upper abdomen and some free fluid is well. CRP ELEVATED ? etio infection RAMSEY: Improved HTN COPD/asthma. Smoker. History of chronic constipation. Osteoarthritis. ? CAD/WV, hx PLAN: Cont pt on IV Zosyn d# 2 Rocephin d# 5 monitor chest x-ray. Nephrology, following Blood Cx : P Surg Cons : Subjective Allergies: Coded Allergies: No Known Allergies (Unverified , 01/20/17) Subjective SP Surg Objective Vital Signs Last 24 Hour Vital Signs Date Time Temp Pulse Resp B/P (MAP) Pulse Ox O2 Delivery O2 Flow Rate FiO2 07/09/17 21:28 101/29 07/09/17 19:00 Nasal Cannula 3.0 32 07/09/17 19:00 131 24 104/45 100 Nasal Cannula 3.0 07/09/17 19:00 100 Nasal Cannula 3.0 32 07/09/17 19:00 131 24 Nasal Cannula 3.0 32 07/09/17 18:00 129 22 118/51 97 Nasal Cannula 3.0 07/09/17 17:00 128 22 112/58 96 Nasal Cannula 3.0 07/09/17 16:00 125 07/09/17 16:00 98.0 126 26 129/64 96 Nasal Cannula 3.0 98.0 07/09/17 15:00 125 24 103/48 95 Nasal Cannula 3.0 07/09/17 14:00 125 26 94/40 95 Nasal Cannula 3.0 07/09/17 13:15 98 Nasal Cannula 3.0 07/09/17 13:13 Nasal Cannula 3.0 07/09/17 13:12 Nasal Cannula 3.0 07/09/17 13:00 130 17 135/63 95 Mechanical Ventilator 50 07/09/17 12:00 131 07/09/17 12:00 50 07/09/17 12:00 97.7 128 17 96/58 95 Mechanical Ventilator 50 97.7 07/09/17 11:35 50 07/09/17 11:11 127 24 50 07/09/17 11:00 128 17 128/70 94 Mechanical Ventilator 50 07/09/17 10:00 128 17 105/62 96 Mechanical Ventilator 50 07/09/17 09:00 128 17 116/77 99 Mechanical Ventilator 50 07/09/17 08:55 126 14 50 07/09/17 08:00 98.3 127 17 95/54 96 Mechanical Ventilator 50 98.3 07/09/17 08:00 50 07/09/17 08:00 125 07/09/17 07:18 127 13 50 07/09/17 07:00 128 17 99/51 98 Mechanical Ventilator 50 07/09/17 06:00 124 13 106/53 96 Mechanical Ventilator 50 07/09/17 05:09 126 11 50 07/09/17 05:00 128 12 73/29 98 Mechanical Ventilator 50 07/09/17 04:00 99.0 127 11 76/41 99 Mechanical Ventilator 50 99.0 07/09/17 04:00 50 07/09/17 03:36 125 07/09/17 03:29 120 12 50 07/09/17 03:00 128 12 92/54 98 Mechanical Ventilator 50 07/09/17 02:00 128 12 83/51 99 Mechanical Ventilator 50 07/09/17 01:25 128 12 50 07/09/17 01:00 128 12 82/51 97 Mechanical Ventilator 50 07/09/17 00:00 50 07/09/17 00:00 98.1 127 10 80/50 98 Mechanical Ventilator 50 98.1 07/08/17 23:54 127 07/08/17 23:19 127 10 50 07/08/17 23:00 125 12 99/51 98 Mechanical Ventilator 50 Height (Feet): 5 Height (Inches): 9.00 Weight (Pounds): 158 HEENT: anicteric Respiratory/Chest: no respiratory distress Skin: no rash Microbiology Date/Time Source Procedure Growth Status 07/08/17 16:33 Bowel Gram Stain - Final Resulted 07/08/17 16:33 Aerobic Culture - Preliminary Gram Negative Bacillus 1 Resulted 07/08/17 16:33 Bowel Anaerobic Culture Pending Resulted Laboratory Tests Test 07/09/17 05:45 White Blood Count 15.5 K/UL (4.8-10.8) H Red Blood Count 4.92 M/UL (4.70-6.10) Hemoglobin 15.8 G/DL (14.2-18.0) # Hematocrit 45.7 % (42.0-52.0) # Mean Corpuscular Volume 93 FL (80-99) Mean Corpuscular Hemoglobin 32.2 PG (27.0-31.0) H Mean Corpuscular Hemoglobin Concent 34.7 G/DL (32.0-36.0) Red Cell Distribution Width 13.2 % (11.6-14.8) Platelet Count 161 K/UL (150-450) Mean Platelet Volume 6.4 FL (6.5-10.1) L Neutrophils (%) (Auto) % (45.0-75.0) Lymphocytes (%) (Auto) % (20.0-45.0) Monocytes (%) (Auto) % (1.0-10.0) Eosinophils (%) (Auto) % (0.0-3.0) Basophils (%) (Auto) % (0.0-2.0) Differential Total Cells Counted 100 Neutrophils % (Manual) 91 % (45-75) H Lymphocytes % (Manual) 4 % (20-45) L Monocytes % (Manual) 5 % (1-10) Eosinophils % (Manual) 0 % (0-3) Basophils % (Manual) 0 % (0-2) Band Neutrophils 0 % (0-8) Platelet Estimate Adequate Platelet Morphology Normal Red Blood Cell Morphology Normal Sodium Level 136 MMOL/L (136-145) Potassium Level 4.6 MMOL/L (3.5-5.1) Chloride Level 104 MMOL/L (98-107) Carbon Dioxide Level 25 MMOL/L (21-32) Anion Gap 7 mmol/L (5-15) Blood Urea Nitrogen 22 mg/dL (7-18) H Creatinine 1.4 MG/DL (0.55-1.30) #H Estimat Glomerular Filtration Rate 54.3 mL/min (>60) Glucose Level 185 MG/DL (74-106) #H Uric Acid 4.4 MG/DL (2.6-7.2) Calcium Level 6.3 MG/DL (8.5-10.1) #L Phosphorus Level 5.8 MG/DL (2.5-4.9) H Magnesium Level 1.6 MG/DL (1.8-2.4) L Total Bilirubin 0.8 MG/DL (0.2-1.0) Aspartate Amino Transf (AST/SGOT) 49 U/L (15-37) H Alanine Aminotransferase (ALT/SGPT) 17 U/L (12-78) Alkaline Phosphatase 70 U/L (46-116) Total Creatine Kinase 354 U/L (26-308) H Total Protein 3.8 G/DL (6.4-8.2) L Albumin 1.1 G/DL (3.4-5.0) L Globulin 2.7 g/dL Albumin/Globulin Ratio 0.4 (1.0-2.7) L Current Medications Medications (Trade) Dose Ordered Sig/Kayy Route PRN Reason Start Time Stop Time Status Last Admin Dose Admin Albuterol Sulfate (Proventil) 2.5 mg Q12H PRN HHN To Patient Comfort 07/09/17 05:45 07/13/17 17:44 Dextrose (Dextrose 50%) STAT PRN IV Hypoglycemia 07/08/17 23:30 08/05/17 23:29 Dextrose/Sodium Chloride 1,000 ml @ 100 mls/hr Q10H IV 07/08/17 20:30 08/07/17 13:59 07/09/17 17:30 Haloperidol Lactate (Haldol) 5 mg BEDTIME IM 07/09/17 21:00 08/08/17 20:59 07/09/17 21:12 Heparin Sodium (Porcine) (Heparin 5000 units/ml) 5,000 units EVERY 12 HOURS SUBQ 07/08/17 21:00 08/02/17 08:59 07/09/17 21:28 Hydromorphone HCl (Dilaudid) 0.5 mg Q3H PRN IVP Pain Score 1-3 07/08/17 22:45 07/15/17 19:44 07/09/17 08:30 Hydromorphone HCl (Dilaudid) 1 mg Q2H PRN IVP Moderate Pain (Pain Scale 4-6) 07/08/17 21:45 07/14/17 21:44 Hydromorphone HCl (Dilaudid) 2 mg Q3H PRN IVP pain score 7-10 07/08/17 22:45 07/15/17 19:44 07/09/17 03:37 Lorazepam (Ativan 2mg/ml 1ml) 0.5 mg Q4H PRN IV Breakthrough agitation 07/08/17 21:00 07/10/17 16:59 Lorazepam (Ativan 2mg/ml 1ml) 1 mg Q1H PRN IV For Anxiety 07/08/17 21:00 07/15/17 19:59 07/09/17 16:33 Nitroglycerin (Ntg) 0.4 mg Q5M PRN SL Prn Chest Pain 07/08/17 20:30 08/05/17 19:14 Norepinephrine Bitartrate 4 mg/ Sodium Chloride 254 ml @ 0 mls/hr Q24H IV 07/09/17 21:30 08/07/17 21:29 Ondansetron HCl (Zofran) 4 mg Q6H PRN IVP Nausea & Vomiting 07/08/17 23:00 08/02/17 16:59 Pantoprazole (Protonix) 40 mg DAILY IV 07/09/17 09:00 08/08/17 08:59 07/09/17 08:29 Piperacillin Sod/ Tazobactam Sod 3.375 gm/Dextrose 110 ml @ 27.5 mls/hr EVERY 8 HOURS IVPB 07/08/17 22:00 07/13/17 21:59 07/09/17 21:12 STEPH TOLBERT M.D. Jul 09, 2017 22:13
--- NOTE | 2017-07-09 22:43 | General Progress Note ---
Assessment/Plan Assessment/Plan Schizophrenia. PLAN: We will increase the risperidone to 3 mg at bedtime. Recommend to change the pain medication to long-acting pain medications. Subjective Date patient seen: Jul 09, 2017 Allergies: Coded Allergies: No Known Allergies (Unverified , 01/20/17) Objective Last 24 Hour Vital Signs Date Time Temp Pulse Resp B/P (MAP) Pulse Ox O2 Delivery O2 Flow Rate FiO2 07/09/17 21:28 101/29 07/09/17 19:00 Nasal Cannula 3.0 32 07/09/17 19:00 131 24 104/45 100 Nasal Cannula 3.0 07/09/17 19:00 100 Nasal Cannula 3.0 32 07/09/17 19:00 131 24 Nasal Cannula 3.0 32 07/09/17 18:00 129 22 118/51 97 Nasal Cannula 3.0 07/09/17 17:00 128 22 112/58 96 Nasal Cannula 3.0 07/09/17 16:00 125 07/09/17 16:00 98.0 126 26 129/64 96 Nasal Cannula 3.0 98.0 07/09/17 15:00 125 24 103/48 95 Nasal Cannula 3.0 07/09/17 14:00 125 26 94/40 95 Nasal Cannula 3.0 07/09/17 13:15 98 Nasal Cannula 3.0 07/09/17 13:13 Nasal Cannula 3.0 07/09/17 13:12 Nasal Cannula 3.0 07/09/17 13:00 130 17 135/63 95 Mechanical Ventilator 50 07/09/17 12:00 131 07/09/17 12:00 50 07/09/17 12:00 97.7 128 17 96/58 95 Mechanical Ventilator 50 97.7 07/09/17 11:35 50 07/09/17 11:11 127 24 50 07/09/17 11:00 128 17 128/70 94 Mechanical Ventilator 50 07/09/17 10:00 128 17 105/62 96 Mechanical Ventilator 50 07/09/17 09:00 128 17 116/77 99 Mechanical Ventilator 50 07/09/17 08:55 126 14 50 07/09/17 08:00 98.3 127 17 95/54 96 Mechanical Ventilator 50 98.3 07/09/17 08:00 50 07/09/17 08:00 125 07/09/17 07:18 127 13 50 07/09/17 07:00 128 17 99/51 98 Mechanical Ventilator 50 07/09/17 06:00 124 13 106/53 96 Mechanical Ventilator 50 07/09/17 05:09 126 11 50 07/09/17 05:00 128 12 73/29 98 Mechanical Ventilator 50 07/09/17 04:00 99.0 127 11 76/41 99 Mechanical Ventilator 50 99.0 07/09/17 04:00 50 07/09/17 03:36 125 07/09/17 03:29 120 12 50 07/09/17 03:00 128 12 92/54 98 Mechanical Ventilator 50 07/09/17 02:00 128 12 83/51 99 Mechanical Ventilator 50 07/09/17 01:25 128 12 50 07/09/17 01:00 128 12 82/51 97 Mechanical Ventilator 50 07/09/17 00:00 50 07/09/17 00:00 98.1 127 10 80/50 98 Mechanical Ventilator 50 98.1 07/08/17 23:54 127 07/08/17 23:19 127 10 50 07/08/17 23:00 125 12 99/51 98 Mechanical Ventilator 50 Intake and Output 07/08/17 07/09/17 19:00 07:00 Intake Total 5562.5 ml Output Total 1300 ml 1650 ml Balance -1300 ml 3912.5 ml Intake Oral 0 ml IV Total 4212.5 ml Blood Product 600 ml Other 750 ml Output Urine Total 1300 ml 720 ml Gastric Drainage Total 0 ml Drainage Total 330 ml Estimated Blood Loss 600 ml # Bowel Movements 2 Laboratory Tests 07/09/17 05:45: White Blood Count 15.5H, Red Blood Count 4.92, Hemoglobin 15.8#, Hematocrit 45.7 #, Mean Corpuscular Volume 93, Mean Corpuscular Hemoglobin 32.2H, Mean Corpuscular Hemoglobin Concent 34.7, Red Cell Distribution Width 13.2, Platelet Count 161, Mean Platelet Volume 6.4L, Neutrophils (%) (Auto) , Lymphocytes (%) ( Auto) , Monocytes (%) (Auto) , Eosinophils (%) (Auto) , Basophils (%) (Auto) , Differential Total Cells Counted 100, Neutrophils % (Manual) 91H, Lymphocytes % (Manual) 4L, Monocytes % (Manual) 5, Eosinophils % (Manual) 0, Basophils % ( Manual) 0, Band Neutrophils 0, Platelet Estimate Adequate, Platelet Morphology Normal, Red Blood Cell Morphology Normal, Sodium Level 136, Potassium Level 4.6 , Chloride Level 104, Carbon Dioxide Level 25, Anion Gap 7, Blood Urea Nitrogen 22H, Creatinine 1.4#H, Estimat Glomerular Filtration Rate 54.3, Glucose Level 185#H, Uric Acid 4.4, Calcium Level 6.3#L, Phosphorus Level 5.8H, Magnesium Level 1.6L, Total Bilirubin 0.8, Aspartate Amino Transf (AST/SGOT) 49H, Alanine Aminotransferase (ALT/SGPT) 17, Alkaline Phosphatase 70, Total Creatine Kinase 354H, Total Protein 3.8L, Albumin 1.1L, Globulin 2.7, Albumin/Globulin Ratio 0.4L Height (Feet): 5 Height (Inches): 9.00 Weight (Pounds): 158 Idalia Montanez M.D. Jul 09, 2017 22:43
[2017-07-10] VITALS (19 sets, daily range): BP systolic 102–162; BP diastolic 35–83
[2017-07-10] MEDS: D5NS 1,000 ML IV SCH ×3 (02:16→21:23)
[2017-07-10] MEDS: LORazepam Inj 2mg/ml 1ml IV PRN ×3 (02:19→17:53)
[2017-07-10 04:43] LABS: HEMATOCRIT 33.2 % (42.0-52.0); HEMOGLOBIN 11.5 G/DL (14.2-18.0); MEAN CORPUSCULAR VOLUME 92 FL (80-99); PLATELET COUNT 188 K/UL (150-450); RED BLOOD COUNT 3.61 M/UL (4.70-6.10); RED CELL DISTRIBUTION WIDTH 12.6 % (11.6-14.8); WHITE BLOOD COUNT 12.8 K/UL (4.8-10.8)
[2017-07-10 04:52] LABS: ALANINE AMINOTRANSFERASE 17 U/L (12-78); ALBUMIN 1.6 G/DL (3.4-5.0); ALBUMIN/GLOBULIN RATIO 0.5 (1.0-2.7); ALKALINE PHOSPHATASE 71 U/L (46-116); ANION GAP 6 mmol/L (5-15); ASPARTATE AMINO TRANSFERASE 47 U/L (15-37); BILIRUBIN,TOTAL 0.8 MG/DL (0.2-1.0); BLOOD UREA NITROGEN 14 mg/dL (7-18); CALCIUM 7.2 MG/DL (8.5-10.1); CARBON DIOXIDE 27 MMOL/L (21-32); CHLORIDE 107 MMOL/L (98-107); CREATININE 0.8 MG/DL (0.55-1.30); PHOSPHORUS 1.7 MG/DL (2.5-4.9); POTASSIUM 3.3 MMOL/L (3.5-5.1); SODIUM 140 MMOL/L (136-145)
[2017-07-10] MEDS: Piperacillin/Tazobactam 3.375 GM in D5W 110 ML IVPB SCH ×3 (05:46→21:23)
--- NOTE | 2017-07-10 06:43 | Pulmonolgy Critical Care Note ---
Critical Care - Asmt/Plan Problems: (1) Acute respiratory failure (2) ARF (acute renal failure) (3) Perforated abdominal viscus (4) Pneumoperitoneum (5) COPD (chronic obstructive pulmonary disease) Respiratory: monitor respiratory rate, adjust FIO2, CXR Cardiac: continue to monitor HR/BP Renal: F/U I&O, keep IV fluid Infectious Disease: check cultures Gastrointestinal: continue feedings/current rate Endocrine: monitor blood sugar, continue sliding scale insulin Hematologic: monitor H/H, transfuse if hgb<8.5 Neurologic: PRN Morphine, keep patient comfortable Affect: PRN ativan Notes Reviewed: outpatient admitting clerk, cardio, renal Discussed with: nurses, consultants, case aidemanager highway - Objective Last 24 Hour Vital Signs Date Time Temp Pulse Resp B/P (MAP) Pulse Ox O2 Delivery O2 Flow Rate FiO2 07/10/17 06:00 114 27 138/55 97 Nasal Cannula 3.0 07/10/17 05:00 115 26 127/54 97 Nasal Cannula 3.0 07/10/17 04:00 127 07/10/17 04:00 98.8 119 24 128/63 97 Nasal Cannula 3.0 98.8 07/10/17 03:00 126 24 130/67 97 Nasal Cannula 3.0 07/10/17 02:00 120 24 142/61 98 Nasal Cannula 3.0 07/10/17 01:00 133 24 102/46 98 Nasal Cannula 3.0 07/10/17 00:00 129 07/10/17 00:00 98.7 131 24 102/35 97 Nasal Cannula 3.0 98.7 07/09/17 23:00 131 29 93/39 97 Nasal Cannula 3.0 07/09/17 22:00 129 29 92/25 97 Nasal Cannula 3.0 07/09/17 21:28 101/29 07/09/17 21:00 127 29 96/32 98 Nasal Cannula 3.0 07/09/17 20:00 99.2 131 26 123/22 97 Nasal Cannula 3.0 99.2 07/09/17 20:00 130 07/09/17 19:00 Nasal Cannula 3.0 32 07/09/17 19:00 131 24 104/45 100 Nasal Cannula 3.0 07/09/17 19:00 100 Nasal Cannula 3.0 32 07/09/17 19:00 131 24 Nasal Cannula 3.0 32 3/5/18 18:00 129 22 118/51 97 Nasal Cannula 3.0 07/09/17 17:00 128 22 112/58 96 Nasal Cannula 3.0 07/09/17 16:00 125 07/09/17 16:00 98.0 126 26 129/64 96 Nasal Cannula 3.0 98.0 07/09/17 15:00 125 24 103/48 95 Nasal Cannula 3.0 07/09/17 14:00 125 26 94/40 95 Nasal Cannula 3.0 07/09/17 13:15 98 Nasal Cannula 3.0 07/09/17 13:13 Nasal Cannula 3.0 07/09/17 13:12 Nasal Cannula 3.0 07/09/17 13:00 130 17 135/63 95 Mechanical Ventilator 50 07/09/17 12:00 131 07/09/17 12:00 50 07/09/17 12:00 97.7 128 17 96/58 95 Mechanical Ventilator 50 97.7 07/09/17 11:35 50 07/09/17 11:11 127 24 50 07/09/17 11:00 128 17 128/70 94 Mechanical Ventilator 50 07/09/17 10:00 128 17 105/62 96 Mechanical Ventilator 50 07/09/17 09:00 128 17 116/77 99 Mechanical Ventilator 50 07/09/17 08:55 126 14 50 07/09/17 08:00 98.3 127 17 95/54 96 Mechanical Ventilator 50 98.3 07/09/17 08:00 50 07/09/17 08:00 125 07/09/17 07:18 127 13 50 07/09/17 07:00 128 17 99/51 98 Mechanical Ventilator 50 Status: awake Condition: critical HEENT: atraumatic Neck: full ROM Lungs: clear Heart: regular Abdomen: feeding tube Extremities: edema Decubiti: location Micro: Microbiology Date/Time Source Procedure Growth Status 07/08/17 16:33 Bowel Gram Stain - Final Resulted 07/08/17 16:33 Aerobic Culture - Preliminary Escherichia Coli Resulted 07/08/17 16:33 Bowel Anaerobic Culture Pending Resulted Critical Care - Subjective ROS Limited/Unobtainable: Yes ICU Day: 3 Intubation Day: extubated yesterday Condition: critical EKG Rhythm: Sinus Rhythm FI02: 32 Vent Support Breath Rate: 10 Vent Support Mode: AC Vent Tidal Volume: 600 Sputum Amount: None PIP: 15 Fluids: d5 NS 100 ml I&O: Intake and Output 07/09/17 07/10/17 19:00 07:00 Intake Total 1370 ml 1210.0 ml Output Total 705 ml 655 ml Balance 665 ml 555.0 ml Intake Oral 0 ml 0 ml IV Total 1320 ml 1210.0 ml Other 50 ml Output Urine Total 505 ml 585 ml Stool Total 20 ml Drainage Total 200 ml 50 ml CXR: no change ET-Tube: 7.5 ET Position: 23 Labs: Laboratory Tests Test 07/10/17 03:40 White Blood Count 12.8 K/UL (4.8-10.8) H Red Blood Count 3.61 M/UL (4.70-6.10) L Hemoglobin 11.5 G/DL (14.2-18.0) L Hematocrit 33.2 % (42.0-52.0) L Mean Corpuscular Volume 92 FL (80-99) Mean Corpuscular Hemoglobin 31.9 PG (27.0-31.0) H Mean Corpuscular Hemoglobin Concent 34.7 G/DL (32.0-36.0) Red Cell Distribution Width 12.6 % (11.6-14.8) Platelet Count 188 K/UL (150-450) Mean Platelet Volume 5.8 FL (6.5-10.1) L Neutrophils (%) (Auto) % (45.0-75.0) Lymphocytes (%) (Auto) % (20.0-45.0) Monocytes (%) (Auto) % (1.0-10.0) Eosinophils (%) (Auto) % (0.0-3.0) Basophils (%) (Auto) % (0.0-2.0) Sodium Level 140 MMOL/L (136-145) Potassium Level 3.3 MMOL/L (3.5-5.1) L Chloride Level 107 MMOL/L (98-107) Carbon Dioxide Level 27 MMOL/L (21-32) Anion Gap 6 mmol/L (5-15) Blood Urea Nitrogen 14 mg/dL (7-18) Creatinine 0.8 MG/DL (0.55-1.30) Estimat Glomerular Filtration Rate > 60 mL/min (>60) Glucose Level 130 MG/DL (74-106) H Uric Acid 2.5 MG/DL (2.6-7.2) L Calcium Level 7.2 MG/DL (8.5-10.1) L Phosphorus Level 1.7 MG/DL (2.5-4.9) L Magnesium Level 1.7 MG/DL (1.8-2.4) L Total Bilirubin 0.8 MG/DL (0.2-1.0) Aspartate Amino Transf (AST/SGOT) 47 U/L (15-37) H Alanine Aminotransferase (ALT/SGPT) 17 U/L (12-78) Alkaline Phosphatase 71 U/L (46-116) C-Reactive Protein, Quantitative 26.5 mg/dL (0.00-0.90) H Pro-B-Type Natriuretic Peptide 398 pg/mL (0-125) H Total Protein 4.6 G/DL (6.4-8.2) L Albumin 1.6 G/DL (3.4-5.0) L Globulin 3.0 g/dL Albumin/Globulin Ratio 0.5 (1.0-2.7) L Cortisol AM Sample Pending YUVAL HATCH Jul 10, 2017 06:43
--- NOTE | 2017-07-10 07:21 | 48 Hour Post Anesthesia Eval ---
Post Anesthesia Evaluation Procedure: Exploratory laparotomy, partial bowel resection Date of Evaluation: Jul 10, 2017 Time of Evaluation: 06:30 Blood Pressure Systolic: 138 0: 55 Pulse Rate: 114 Respiratory Rate: 27 Temperature (Fahrenheit): 98.8 O2 Sat by Pulse Oximetry: 97 Airway: patent Nausea: No Vomiting: No Pain Intensity: 3 Hydration Status: adequate Cardiopulmonary Status: at baseline Post-Anesthesia Complications: 0 Follow-up care needed: N/A - further care as per primary team OMI WOOD M.D. Jul 10, 2017 07:21
[2017-07-10] MEDS ORDERED: Potassium Chloride 50 MEQ in Sodium Chloride 500ML 550 ML IVPB ONE (08:30)
[2017-07-10] MEDS: Pantoprazole Inj IV SCH (08:45)
[2017-07-10] MEDS: Heparin 5000 units/ml inj SUBQ SCH ×2 (08:48→21:00)
--- NOTE | 2017-07-10 10:40 | General Progress Note ---
Assessment/Plan Assessment/Plan Schizophrenia CPT Encephalopathy PLAN: We will increase the risperidone to 3 mg at bedtime. Recommend to change the pain medication to long-acting pain medications. Subjective Date patient seen: Jul 10, 2017 Neurologic/Psychiatric: Reports: anxiety, depressed, emotional problems Allergies: Coded Allergies: No Known Allergies (Unverified , 01/20/17) Subjective the pt still confused and agitated needs prn/ the pt is tachy. the pt is disorganized and delusional waxing and waning of consciousness Objective Last 24 Hour Vital Signs Date Time Temp Pulse Resp B/P (MAP) Pulse Ox O2 Delivery O2 Flow Rate FiO2 07/10/17 10:00 115 37 113/69 97 Nasal Cannula 2.0 07/10/17 09:51 Nasal Cannula 2.0 28 07/10/17 09:51 100 Nasal Cannula 2.0 28 07/10/17 09:50 115 18 Nasal Cannula 2.0 28 07/10/17 09:00 115 40 162/78 100 Nasal Cannula 3.0 07/10/17 08:00 111 07/10/17 08:00 97.4 104 24 141/61 99 Nasal Cannula 3.0 97.4 07/10/17 07:21 209.8 114 27 97 07/10/17 07:00 110 27 141/62 97 Nasal Cannula 3.0 07/10/17 06:00 114 27 138/55 97 Nasal Cannula 3.0 07/10/17 05:00 115 26 127/54 97 Nasal Cannula 3.0 07/10/17 04:00 127 07/10/17 04:00 98.8 119 24 128/63 97 Nasal Cannula 3.0 98.8 07/10/17 03:00 126 24 130/67 97 Nasal Cannula 3.0 07/10/17 02:00 120 24 142/61 98 Nasal Cannula 3.0 07/10/17 01:00 133 24 102/46 98 Nasal Cannula 3.0 07/10/17 00:00 129 07/10/17 00:00 98.7 131 24 102/35 97 Nasal Cannula 3.0 98.7 07/09/17 23:00 131 29 93/39 97 Nasal Cannula 3.0 07/09/17 22:00 129 29 92/25 97 Nasal Cannula 3.0 07/09/17 21:28 101/29 07/09/17 21:00 127 29 96/32 98 Nasal Cannula 3.0 07/09/17 20:00 99.2 131 26 123/22 97 Nasal Cannula 3.0 99.2 07/09/17 20:00 130 07/09/17 19:00 Nasal Cannula 3.0 32 07/09/17 19:00 131 24 104/45 100 Nasal Cannula 3.0 07/09/17 19:00 100 Nasal Cannula 3.0 32 07/09/17 19:00 131 24 Nasal Cannula 3.0 32 07/09/17 18:00 129 22 118/51 97 Nasal Cannula 3.0 07/09/17 17:00 128 22 112/58 96 Nasal Cannula 3.0 07/09/17 16:00 125 07/09/17 16:00 98.0 126 26 129/64 96 Nasal Cannula 3.0 98.0 07/09/17 15:00 125 24 103/48 95 Nasal Cannula 3.0 07/09/17 14:00 125 26 94/40 95 Nasal Cannula 3.0 07/09/17 13:15 98 Nasal Cannula 3.0 07/09/17 13:13 Nasal Cannula 3.0 07/09/17 13:12 Nasal Cannula 3.0 07/09/17 13:00 130 17 135/63 95 Mechanical Ventilator 50 07/09/17 12:00 131 07/09/17 12:00 50 07/09/17 12:00 97.7 128 17 96/58 95 Mechanical Ventilator 50 97.7 07/09/17 11:35 50 07/09/17 11:11 127 24 50 07/09/17 11:00 128 17 128/70 94 Mechanical Ventilator 50 Intake and Output 07/09/17 07/10/17 19:00 07:00 Intake Total 1370 ml 1310.0 ml Output Total 705 ml 715 ml Balance 665 ml 595.0 ml Intake Oral 0 ml 0 ml IV Total 1320 ml 1310.0 ml Other 50 ml Output Urine Total 505 ml 645 ml Stool Total 20 ml Drainage Total 200 ml 50 ml Laboratory Tests 07/10/17 03:40: White Blood Count 12.8H, Red Blood Count 3.61L, Hemoglobin 11.5L, Hematocrit 33.2L, Mean Corpuscular Volume 92, Mean Corpuscular Hemoglobin 31.9H, Mean Corpuscular Hemoglobin Concent 34.7, Red Cell Distribution Width 12.6, Platelet Count 188, Mean Platelet Volume 5.8L, Neutrophils (%) (Auto) , Lymphocytes (%) ( Auto) , Monocytes (%) (Auto) , Eosinophils (%) (Auto) , Basophils (%) (Auto) , Sodium Level 140, Potassium Level 3.3L, Chloride Level 107, Carbon Dioxide Level 27, Anion Gap 6, Blood Urea Nitrogen 14, Creatinine 0.8, Estimat Glomerular Filtration Rate > 60, Glucose Level 130H, Uric Acid 2.5L, Calcium Level 7.2L, Phosphorus Level 1.7L, Magnesium Level 1.7L, Total Bilirubin 0.8, Aspartate Amino Transf (AST/SGOT) 47H, Alanine Aminotransferase (ALT/SGPT) 17, Alkaline Phosphatase 71, C-Reactive Protein, Quantitative 26.5H, Pro-B-Type Natriuretic Peptide 398H, Total Protein 4.6L, Albumin 1.6L, Globulin 3.0, Albumin/Globulin Ratio 0.5L, Cortisol AM Sample [Pending] 07/10/17 08:55: Arterial Blood pH 7.450, Arterial Blood Partial Pressure CO2 33.5L, Arterial Blood Partial Pressure O2 61.5L, Arterial Blood HCO3 23.1, Arterial Blood Oxygen Saturation 91.7L, Arterial Blood Base Excess -0.3, Enio Test Positive Height (Feet): 5 Height (Inches): 9.00 Weight (Pounds): 140 General Appearance: no apparent distress, lethargic, confused, agitated Neurologic: disoriented Idalia Montanez M.D. Jul 10, 2017 10:40
--- NOTE | 2017-07-10 10:50 | Diagnostic Imaging Report ---
APPROVED REPORT CPT Code: 36314 Present Symptoms Shortness of breath BILATERAL: Imaging reveals a patent deep venous system bilaterally. There is no evidence of thrombus within the femoral, popliteal or tibial segments. The greater saphenous veins are also within normal limits. Doppler indicates normal spontaneous flow within these segments.
--- NOTE | 2017-07-10 11:23 | Diagnostic Imaging Report ---
Indication: Dyspnea Comparison: 07/08/2017 A single view chest radiograph was obtained. Findings: Hazy left basilar opacity again demonstrated likely a pleural effusion. Underlying parenchymal disease also suspected. Heart size is stable. Lung volumes are low bilaterally. There is mild prominence of the pulmonary vascularity is well. Patient has been extubated. IMPRESSION: Postextubation. No change otherwise
--- NOTE | 2017-07-10 12:04 | Infectious Diseases Prog Note ---
Assessment/Plan Assessment/Plan ASSESSMENT: The patient is a 46-year-old male with; Leukocytosis, increased history of diarrhea, SP Bowel perf Abscess Cx: E coli s/p ex lap with left colectomy and transverse colostomy for perforated left colon. CT : Evidence of perforation of hollow viscus with extensive amount of free air in the upper abdomen and some free fluid is well. CRP ELEVATED ? etio infection RAMSEY: Improved HTN COPD/asthma. Smoker. History of chronic constipation. Osteoarthritis. ? CAD/AR, hx PLAN: Cont pt on IV Zosyn d# 4 / 10 Rocephin d# 5 monitor chest x-ray. Nephrology, following Blood Cx : P Surg Cons : Subjective Allergies: Coded Allergies: No Known Allergies (Unverified , 01/20/17) Subjective comfortable Objective Vital Signs Last 24 Hour Vital Signs Date Time Temp Pulse Resp B/P (MAP) Pulse Ox O2 Delivery O2 Flow Rate FiO2 07/10/17 11:00 108 24 116/63 99 Nasal Cannula 2.0 07/10/17 10:00 115 37 113/69 97 Nasal Cannula 2.0 07/10/17 09:51 Nasal Cannula 2.0 28 07/10/17 09:51 100 Nasal Cannula 2.0 28 07/10/17 09:50 115 18 Nasal Cannula 2.0 28 07/10/17 09:00 115 40 162/78 100 Nasal Cannula 3.0 07/10/17 08:00 111 07/10/17 08:00 97.4 104 24 141/61 99 Nasal Cannula 3.0 97.4 07/10/17 07:21 209.8 114 27 97 07/10/17 07:00 110 27 141/62 97 Nasal Cannula 3.0 07/10/17 06:00 114 27 138/55 97 Nasal Cannula 3.0 07/10/17 05:00 115 26 127/54 97 Nasal Cannula 3.0 07/10/17 04:00 127 07/10/17 04:00 98.8 119 24 128/63 97 Nasal Cannula 3.0 98.8 07/10/17 03:00 126 24 130/67 97 Nasal Cannula 3.0 07/10/17 02:00 120 24 142/61 98 Nasal Cannula 3.0 07/10/17 01:00 133 24 102/46 98 Nasal Cannula 3.0 3/6/18 00:00 129 07/10/17 00:00 98.7 131 24 102/35 97 Nasal Cannula 3.0 98.7 07/09/17 23:00 131 29 93/39 97 Nasal Cannula 3.0 07/09/17 22:00 129 29 92/25 97 Nasal Cannula 3.0 07/09/17 21:28 101/29 07/09/17 21:00 127 29 96/32 98 Nasal Cannula 3.0 07/09/17 20:00 99.2 131 26 123/22 97 Nasal Cannula 3.0 99.2 07/09/17 20:00 130 07/09/17 19:00 Nasal Cannula 3.0 32 07/09/17 19:00 131 24 104/45 100 Nasal Cannula 3.0 07/09/17 19:00 100 Nasal Cannula 3.0 32 07/09/17 19:00 131 24 Nasal Cannula 3.0 32 07/09/17 18:00 129 22 118/51 97 Nasal Cannula 3.0 07/09/17 17:00 128 22 112/58 96 Nasal Cannula 3.0 07/09/17 16:00 125 07/09/17 16:00 98.0 126 26 129/64 96 Nasal Cannula 3.0 98.0 07/09/17 15:00 125 24 103/48 95 Nasal Cannula 3.0 07/09/17 14:00 125 26 94/40 95 Nasal Cannula 3.0 07/09/17 13:15 98 Nasal Cannula 3.0 07/09/17 13:13 Nasal Cannula 3.0 07/09/17 13:12 Nasal Cannula 3.0 07/09/17 13:00 130 17 135/63 95 Mechanical Ventilator 50 Height (Feet): 5 Height (Inches): 9.00 Weight (Pounds): 140 HEENT: anicteric Respiratory/Chest: no respiratory distress Cardiovascular: regular rhythm Microbiology Date/Time Source Procedure Growth Status 07/08/17 16:33 Bowel Gram Stain - Final Resulted 07/08/17 16:33 Aerobic Culture - Preliminary Escherichia Coli Resulted 07/08/17 16:33 Bowel Anaerobic Culture - Preliminary Resulted Laboratory Tests Test 07/10/17 03:40 07/10/17 08:55 White Blood Count 12.8 K/UL (4.8-10.8) H Red Blood Count 3.61 M/UL (4.70-6.10) L Hemoglobin 11.5 G/DL (14.2-18.0) L Hematocrit 33.2 % (42.0-52.0) L Mean Corpuscular Volume 92 FL (80-99) Mean Corpuscular Hemoglobin 31.9 PG (27.0-31.0) H Mean Corpuscular Hemoglobin Concent 34.7 G/DL (32.0-36.0) Red Cell Distribution Width 12.6 % (11.6-14.8) Platelet Count 188 K/UL (150-450) Mean Platelet Volume 5.8 FL (6.5-10.1) L Neutrophils (%) (Auto) % (45.0-75.0) Lymphocytes (%) (Auto) % (20.0-45.0) Monocytes (%) (Auto) % (1.0-10.0) Eosinophils (%) (Auto) % (0.0-3.0) Basophils (%) (Auto) % (0.0-2.0) Sodium Level 140 MMOL/L (136-145) Potassium Level 3.3 MMOL/L (3.5-5.1) L Chloride Level 107 MMOL/L (98-107) Carbon Dioxide Level 27 MMOL/L (21-32) Anion Gap 6 mmol/L (5-15) Blood Urea Nitrogen 14 mg/dL (7-18) Creatinine 0.8 MG/DL (0.55-1.30) Estimat Glomerular Filtration Rate > 60 mL/min (>60) Glucose Level 130 MG/DL (74-106) H Uric Acid 2.5 MG/DL (2.6-7.2) L Calcium Level 7.2 MG/DL (8.5-10.1) L Phosphorus Level 1.7 MG/DL (2.5-4.9) L Magnesium Level 1.7 MG/DL (1.8-2.4) L Total Bilirubin 0.8 MG/DL (0.2-1.0) Aspartate Amino Transf (AST/SGOT) 47 U/L (15-37) H Alanine Aminotransferase (ALT/SGPT) 17 U/L (12-78) Alkaline Phosphatase 71 U/L (46-116) C-Reactive Protein, Quantitative 26.5 mg/dL (0.00-0.90) H Pro-B-Type Natriuretic Peptide 398 pg/mL (0-125) H Total Protein 4.6 G/DL (6.4-8.2) L Albumin 1.6 G/DL (3.4-5.0) L Globulin 3.0 g/dL Albumin/Globulin Ratio 0.5 (1.0-2.7) L Cortisol AM Sample Pending Arterial Blood pH 7.450 (7.350-7.450) Arterial Blood Partial Pressure CO2 33.5 mmHg (35.0-45.0) L Arterial Blood Partial Pressure O2 61.5 mmHg (75.0-100.0) L Arterial Blood HCO3 23.1 mmol/L (22.0-26.0) Arterial Blood Oxygen Saturation 91.7 % (92.0-98.0) L Arterial Blood Base Excess -0.3 Enio Test Positive Current Medications Medications (Trade) Dose Ordered Sig/Kayy Route PRN Reason Start Time Stop Time Status Last Admin Dose Admin Albuterol Sulfate (Proventil) 2.5 mg Q12H PRN HHN To Patient Comfort 07/09/17 05:45 07/13/17 17:44 Dextrose (Dextrose 50%) STAT PRN IV Hypoglycemia 07/08/17 23:30 08/05/17 23:29 Dextrose/Sodium Chloride 1,000 ml @ 100 mls/hr Q10H IV 07/08/17 20:30 08/07/17 13:59 07/10/17 02:16 Haloperidol Lactate (Haldol) 5 mg BEDTIME IM 07/09/17 21:00 08/08/17 20:59 07/09/17 21:12 Heparin Sodium (Porcine) (Heparin 5000 units/ml) 5,000 units EVERY 12 HOURS SUBQ 07/08/17 21:00 08/02/17 08:59 07/10/17 08:48 Hydromorphone HCl (Dilaudid) 0.5 mg Q3H PRN IVP Pain Score 1-3 07/08/17 22:45 07/15/17 19:44 07/09/17 08:30 Hydromorphone HCl (Dilaudid) 1 mg Q2H PRN IVP Moderate Pain (Pain Scale 4-6) 07/08/17 21:45 07/14/17 21:44 Hydromorphone HCl (Dilaudid) 2 mg Q3H PRN IVP pain score 7-10 07/08/17 22:45 07/15/17 19:44 07/09/17 03:37 Lorazepam (Ativan 2mg/ml 1ml) 0.5 mg Q4H PRN IV Breakthrough agitation 07/08/17 21:00 07/10/17 16:59 Lorazepam (Ativan 2mg/ml 1ml) 1 mg Q1H PRN IV For Anxiety 07/08/17 21:00 07/15/17 19:59 07/10/17 08:46 Nitroglycerin (Ntg) 0.4 mg Q5M PRN SL Prn Chest Pain 07/08/17 20:30 08/05/17 19:14 Norepinephrine Bitartrate 4 mg/ Sodium Chloride 254 ml @ 0 mls/hr Q24H IV 07/09/17 21:30 08/07/17 21:29 Ondansetron HCl (Zofran) 4 mg Q6H PRN IVP Nausea & Vomiting 07/08/17 23:00 08/02/17 16:59 Pantoprazole (Protonix) 40 mg DAILY IV 07/09/17 09:00 08/08/17 08:59 07/10/17 08:45 Piperacillin Sod/ Tazobactam Sod 3.375 gm/Dextrose 110 ml @ 27.5 mls/hr EVERY 8 HOURS IVPB 07/08/17 22:00 07/13/17 21:59 07/10/17 05:46 Potassium Chloride 50 meq/ Sodium Chloride 575 ml @ 115 mls/hr ONCE ONCE IVPB 07/10/17 08:30 07/10/17 13:29 07/10/17 09:23 Potassium Phosphate 30 mm/ Sodium Chloride 560 ml @ 93.3 mls/hr ONCE ONCE IV 07/10/17 13:30 07/10/17 19:30 STEPH TOLBERT M.D. Jul 10, 2017 12:04
[2017-07-10] MEDS ORDERED: Potassium Phosphate 30 MM in Sodium Chloride 500ML 550 ML IV ONE (13:30)
--- NOTE | 2017-07-10 13:58 | General Progress Note ---
Progress Note Progress Note Surgery: multiple events. extubated. pulled out ng tube. pulled out IV line and started drinking IV Zosyn. refuses care if not given liquids. given ice chips and somewhat okay but still at times psych issues. pulling at drains and horan. afebrile, HD stable, labs reviewed. dressings removed and wound c/d/i. ostomy viable. drains with more serous output today. horan with good uop. -okay for sips of clears -pt/ot -downgraded if needed -cont IV Abx. -Rx as written Gilberto Michelle Jul 10, 2017 13:58
--- NOTE | 2017-07-10 14:43 | Cardiology Progress Note ---
Assessment/Plan Assessment/Plan 1. Pleuritic chest pain. 2. Abdominal distention and pain. 3. Questionable history of colon cancer per records from [facility], not completely clear. 4. Psychiatric disorder. 5. Urine drug screen positive for amphetamines. 6. History of opiate use previously. 7. Anxiety. 8. Renal insufficiency, responded to IV fluids. 9. Rhabdomyolysis during this hospitalization due to significantly elevated CPK of 1543 at the time of admission that is resolved. 10. perforated left colon with prolonged inflammatory reaction, gross spillage, bowel ischemia 11. renal isnuf duplex neg all trop neg tele reviewed sinus tachy nwo off vent in icu is tachypnic awake and responsive his respiration appear tenuous observe in icu pro bnp not sig elevated left sided infitlrate trop Subjective Cardiovascular: Denies: chest pain Respiratory: Reports: shortness of breath Gastrointestinal/Abdominal: Reports: abdominal pain Genitourinary: Denies: burning Objective Last 24 Hour Vital Signs Date Time Temp Pulse Resp B/P (MAP) Pulse Ox O2 Delivery O2 Flow Rate FiO2 07/10/17 14:00 118 37 132/70 96 Nasal Cannula 2.0 07/10/17 13:00 113 36 136/74 95 Nasal Cannula 2.0 07/10/17 12:00 115 07/10/17 12:00 97.5 106 32 125/71 97 Nasal Cannula 3.0 97.5 07/10/17 11:00 108 24 116/63 99 Nasal Cannula 2.0 07/10/17 10:00 115 37 113/69 97 Nasal Cannula 2.0 07/10/17 09:51 Nasal Cannula 2.0 28 07/10/17 09:51 100 Nasal Cannula 2.0 28 07/10/17 09:50 115 18 Nasal Cannula 2.0 28 07/10/17 09:00 115 40 162/78 100 Nasal Cannula 3.0 07/10/17 08:00 111 07/10/17 08:00 97.4 104 24 141/61 99 Nasal Cannula 3.0 97.4 07/10/17 07:21 209.8 114 27 97 07/10/17 07:00 110 27 141/62 97 Nasal Cannula 3.0 07/10/17 06:00 114 27 138/55 97 Nasal Cannula 3.0 07/10/17 05:00 115 26 127/54 97 Nasal Cannula 3.0 07/10/17 04:00 127 07/10/17 04:00 98.8 119 24 128/63 97 Nasal Cannula 3.0 98.8 07/10/17 03:00 126 24 130/67 97 Nasal Cannula 3.0 07/10/17 02:00 120 24 142/61 98 Nasal Cannula 3.0 07/10/17 01:00 133 24 102/46 98 Nasal Cannula 3.0 07/10/17 00:00 129 07/10/17 00:00 98.7 131 24 102/35 97 Nasal Cannula 3.0 98.7 07/09/17 23:00 131 29 93/39 97 Nasal Cannula 3.0 07/09/17 22:00 129 29 92/25 97 Nasal Cannula 3.0 07/09/17 21:28 101/29 07/09/17 21:00 127 29 96/32 98 Nasal Cannula 3.0 07/09/17 20:00 99.2 131 26 123/22 97 Nasal Cannula 3.0 99.2 07/09/17 20:00 130 07/09/17 19:00 Nasal Cannula 3.0 32 07/09/17 19:00 131 24 104/45 100 Nasal Cannula 3.0 07/09/17 19:00 100 Nasal Cannula 3.0 32 07/09/17 19:00 131 24 Nasal Cannula 3.0 32 07/09/17 18:00 129 22 118/51 97 Nasal Cannula 3.0 07/09/17 17:00 128 22 112/58 96 Nasal Cannula 3.0 07/09/17 16:00 125 07/09/17 16:00 98.0 126 26 129/64 96 Nasal Cannula 3.0 98.0 07/09/17 15:00 125 24 103/48 95 Nasal Cannula 3.0 General Appearance: other - drowsey arousable Neck: no JVD Cardiovascular: normal rate, tachycardia Respiratory/Chest: rhonchi - right Abdomen: soft, tender Extremities: no swelling Intake and Output 07/09/17 07/10/17 19:00 07:00 Intake Total 1370 ml 1310.0 ml Output Total 705 ml 715 ml Balance 665 ml 595.0 ml Intake Oral 0 ml 0 ml IV Total 1320 ml 1310.0 ml Other 50 ml Output Urine Total 505 ml 645 ml Stool Total 20 ml Drainage Total 200 ml 50 ml Laboratory Tests Test 07/10/17 03:40 07/10/17 08:55 White Blood Count 12.8 K/UL (4.8-10.8) H Red Blood Count 3.61 M/UL (4.70-6.10) L Hemoglobin 11.5 G/DL (14.2-18.0) L Hematocrit 33.2 % (42.0-52.0) L Mean Corpuscular Volume 92 FL (80-99) Mean Corpuscular Hemoglobin 31.9 PG (27.0-31.0) H Mean Corpuscular Hemoglobin Concent 34.7 G/DL (32.0-36.0) Red Cell Distribution Width 12.6 % (11.6-14.8) Platelet Count 188 K/UL (150-450) Mean Platelet Volume 5.8 FL (6.5-10.1) L Neutrophils (%) (Auto) % (45.0-75.0) Lymphocytes (%) (Auto) % (20.0-45.0) Monocytes (%) (Auto) % (1.0-10.0) Eosinophils (%) (Auto) % (0.0-3.0) Basophils (%) (Auto) % (0.0-2.0) Sodium Level 140 MMOL/L (136-145) Potassium Level 3.3 MMOL/L (3.5-5.1) L Chloride Level 107 MMOL/L (98-107) Carbon Dioxide Level 27 MMOL/L (21-32) Anion Gap 6 mmol/L (5-15) Blood Urea Nitrogen 14 mg/dL (7-18) Creatinine 0.8 MG/DL (0.55-1.30) Estimat Glomerular Filtration Rate > 60 mL/min (>60) Glucose Level 130 MG/DL (74-106) H Uric Acid 2.5 MG/DL (2.6-7.2) L Calcium Level 7.2 MG/DL (8.5-10.1) L Phosphorus Level 1.7 MG/DL (2.5-4.9) L Magnesium Level 1.7 MG/DL (1.8-2.4) L Total Bilirubin 0.8 MG/DL (0.2-1.0) Aspartate Amino Transf (AST/SGOT) 47 U/L (15-37) H Alanine Aminotransferase (ALT/SGPT) 17 U/L (12-78) Alkaline Phosphatase 71 U/L (46-116) C-Reactive Protein, Quantitative 26.5 mg/dL (0.00-0.90) H Pro-B-Type Natriuretic Peptide 398 pg/mL (0-125) H Total Protein 4.6 G/DL (6.4-8.2) L Albumin 1.6 G/DL (3.4-5.0) L Globulin 3.0 g/dL Albumin/Globulin Ratio 0.5 (1.0-2.7) L Cortisol AM Sample 16.4 UG/DL Arterial Blood pH 7.450 (7.350-7.450) Arterial Blood Partial Pressure CO2 33.5 mmHg (35.0-45.0) L Arterial Blood Partial Pressure O2 61.5 mmHg (75.0-100.0) L Arterial Blood HCO3 23.1 mmol/L (22.0-26.0) Arterial Blood Oxygen Saturation 91.7 % (92.0-98.0) L Arterial Blood Base Excess -0.3 Enio Test Positive Microbiology Date/Time Source Procedure Growth Status 07/08/17 16:33 Bowel Gram Stain - Final Resulted 07/08/17 16:33 Aerobic Culture - Preliminary Escherichia Coli Resulted 07/08/17 16:33 Bowel Anaerobic Culture - Preliminary Resulted ANTELMO BAUMAN Jul 10, 2017 14:43
--- NOTE | 2017-07-10 15:56 | Nephrology Progress Note ---
Assessment/Plan Problem List: (1) ARF (acute renal failure) (2) UTI (urinary tract infection) (3) Psychiatric disorder (4) Acute abdomen Assessment Status: acute renal failure- extended left colectomy due to perf transverse colostomy creation Plan Plan: Post op day 1 ( OP 07/08/17) Hydrate- Dickens- 2D echo normal Ej Fx Albumin bollous monitor renal parameters Subjective ROS Limited/Unobtainable: No Objective Objective Last 24 Hour Vital Signs Date Time Temp Pulse Resp B/P (MAP) Pulse Ox O2 Delivery O2 Flow Rate FiO2 07/10/17 14:00 118 37 132/70 96 Nasal Cannula 2.0 07/10/17 13:00 113 36 136/74 95 Nasal Cannula 2.0 07/10/17 12:00 115 07/10/17 12:00 97.5 106 32 125/71 97 Nasal Cannula 3.0 97.5 07/10/17 11:00 108 24 116/63 99 Nasal Cannula 2.0 07/10/17 10:00 115 37 113/69 97 Nasal Cannula 2.0 07/10/17 09:51 Nasal Cannula 2.0 28 07/10/17 09:51 100 Nasal Cannula 2.0 28 07/10/17 09:50 115 18 Nasal Cannula 2.0 28 07/10/17 09:00 115 40 162/78 100 Nasal Cannula 3.0 07/10/17 08:00 111 07/10/17 08:00 97.4 104 24 141/61 99 Nasal Cannula 3.0 97.4 07/10/17 07:21 209.8 114 27 97 07/10/17 07:00 110 27 141/62 97 Nasal Cannula 3.0 07/10/17 06:00 114 27 138/55 97 Nasal Cannula 3.0 07/10/17 05:00 115 26 127/54 97 Nasal Cannula 3.0 07/10/17 04:00 127 07/10/17 04:00 98.8 119 24 128/63 97 Nasal Cannula 3.0 98.8 07/10/17 03:00 126 24 130/67 97 Nasal Cannula 3.0 07/10/17 02:00 120 24 142/61 98 Nasal Cannula 3.0 07/10/17 01:00 133 24 102/46 98 Nasal Cannula 3.0 07/10/17 00:00 129 07/10/17 00:00 98.7 131 24 102/35 97 Nasal Cannula 3.0 98.7 07/09/17 23:00 131 29 93/39 97 Nasal Cannula 3.0 07/09/17 22:00 129 29 92/25 97 Nasal Cannula 3.0 07/09/17 21:28 101/29 07/09/17 21:00 127 29 96/32 98 Nasal Cannula 3.0 07/09/17 20:00 99.2 131 26 123/22 97 Nasal Cannula 3.0 99.2 07/09/17 20:00 130 07/09/17 19:00 Nasal Cannula 3.0 32 07/09/17 19:00 131 24 104/45 100 Nasal Cannula 3.0 07/09/17 19:00 100 Nasal Cannula 3.0 32 07/09/17 19:00 131 24 Nasal Cannula 3.0 32 07/09/17 18:00 129 22 118/51 97 Nasal Cannula 3.0 07/09/17 17:00 128 22 112/58 96 Nasal Cannula 3.0 07/09/17 16:00 125 07/09/17 16:00 98.0 126 26 129/64 96 Nasal Cannula 3.0 98.0 Intake and Output 07/09/17 07/10/17 19:00 07:00 Intake Total 1370 ml 1310.0 ml Output Total 705 ml 715 ml Balance 665 ml 595.0 ml Intake Oral 0 ml 0 ml IV Total 1320 ml 1310.0 ml Other 50 ml Output Urine Total 505 ml 645 ml Stool Total 20 ml Drainage Total 200 ml 50 ml Laboratory Tests 07/10/17 03:40: White Blood Count 12.8H, Red Blood Count 3.61L, Hemoglobin 11.5L, Hematocrit 33.2L, Mean Corpuscular Volume 92, Mean Corpuscular Hemoglobin 31.9H, Mean Corpuscular Hemoglobin Concent 34.7, Red Cell Distribution Width 12.6, Platelet Count 188, Mean Platelet Volume 5.8L, Neutrophils (%) (Auto) , Lymphocytes (%) ( Auto) , Monocytes (%) (Auto) , Eosinophils (%) (Auto) , Basophils (%) (Auto) , Sodium Level 140, Potassium Level 3.3L, Chloride Level 107, Carbon Dioxide Level 27, Anion Gap 6, Blood Urea Nitrogen 14, Creatinine 0.8, Estimat Glomerular Filtration Rate > 60, Glucose Level 130H, Uric Acid 2.5L, Calcium Level 7.2L, Phosphorus Level 1.7L, Magnesium Level 1.7L, Total Bilirubin 0.8, Aspartate Amino Transf (AST/SGOT) 47H, Alanine Aminotransferase (ALT/SGPT) 17, Alkaline Phosphatase 71, C-Reactive Protein, Quantitative 26.5H, Pro-B-Type Natriuretic Peptide 398H, Total Protein 4.6L, Albumin 1.6L, Globulin 3.0, Albumin/Globulin Ratio 0.5L, Cortisol AM Sample 16.4 07/10/17 08:55: Arterial Blood pH 7.450, Arterial Blood Partial Pressure CO2 33.5L, Arterial Blood Partial Pressure O2 61.5L, Arterial Blood HCO3 23.1, Arterial Blood Oxygen Saturation 91.7L, Arterial Blood Base Excess -0.3, Enio Test Positive Height (Feet): 5 Height (Inches): 9.00 Weight (Pounds): 140 EENT: other - extubated Respiratory/Chest: decreased breath sounds Abdomen: distended, other - 2 drains Objective no other change NOEMY MARK Jul 10, 2017 15:56
[2017-07-10] MEDS ORDERED: D5NS 1,000 ML IV SCH (17:00)
--- NOTE | 2017-07-10 17:07 | GI Progress Note ---
Assessment/Plan Problems: (1) Therapeutic opioid-induced constipation (OIC) ICD Codes: K59.03 - Drug induced constipation; T40.2X5A - Adverse effect of other opioids, initial encounter SNOMED: 944747580723929 (2) Psychiatric disorder ICD Codes: F99 - Mental disorder, not otherwise specified SNOMED: 49341173, 518610725 (3) Amphetamine abuse ICD Codes: F15.10 - Other stimulant abuse, uncomplicated SNOMED: 71919093 (4) Opiate dependence ICD Codes: F11.20 - Opioid dependence, uncomplicated SNOMED: 07094026 Qualifiers: Qualified Codes: F11.20 - Opioid dependence, uncomplicated (5) Acute constipation ICD Codes: K59.00 - Constipation, unspecified SNOMED: 764246049 Status: progressing Status Narrative Discussed with Dr. Castro. Assessment/Plan s/p Exploratory laparotomy, partial bowel resection fu surgical recs NPO + IVFs colostomy care prn transfusions serial imaging prn fu labs Subjective Subjective limited, in ICU awake / alert Objective Last 24 Hour Vital Signs Date Time Temp Pulse Resp B/P (MAP) Pulse Ox O2 Delivery O2 Flow Rate FiO2 07/10/17 16:00 97.7 115 35 132/78 95 Nasal Cannula 3.0 97.7 07/10/17 15:00 116 25 133/69 94 Nasal Cannula 2.0 07/10/17 14:00 118 37 132/70 96 Nasal Cannula 2.0 07/10/17 13:00 113 36 136/74 95 Nasal Cannula 2.0 07/10/17 12:00 115 07/10/17 12:00 97.5 106 32 125/71 97 Nasal Cannula 3.0 97.5 07/10/17 11:00 108 24 116/63 99 Nasal Cannula 2.0 07/10/17 10:00 115 37 113/69 97 Nasal Cannula 2.0 07/10/17 09:51 Nasal Cannula 2.0 28 07/10/17 09:51 100 Nasal Cannula 2.0 28 07/10/17 09:50 115 18 Nasal Cannula 2.0 28 07/10/17 09:00 115 40 162/78 100 Nasal Cannula 3.0 07/10/17 08:00 111 07/10/17 08:00 97.4 104 24 141/61 99 Nasal Cannula 3.0 97.4 07/10/17 07:21 209.8 114 27 97 07/10/17 07:00 110 27 141/62 97 Nasal Cannula 3.0 07/10/17 06:00 114 27 138/55 97 Nasal Cannula 3.0 07/10/17 05:00 115 26 127/54 97 Nasal Cannula 3.0 07/10/17 04:00 127 07/10/17 04:00 98.8 119 24 128/63 97 Nasal Cannula 3.0 98.8 07/10/17 03:00 126 24 130/67 97 Nasal Cannula 3.0 07/10/17 02:00 120 24 142/61 98 Nasal Cannula 3.0 07/10/17 01:00 133 24 102/46 98 Nasal Cannula 3.0 07/10/17 00:00 129 07/10/17 00:00 98.7 131 24 102/35 97 Nasal Cannula 3.0 98.7 07/09/17 23:00 131 29 93/39 97 Nasal Cannula 3.0 07/09/17 22:00 129 29 92/25 97 Nasal Cannula 3.0 07/09/17 21:28 101/29 07/09/17 21:00 127 29 96/32 98 Nasal Cannula 3.0 07/09/17 20:00 99.2 131 26 123/22 97 Nasal Cannula 3.0 99.2 07/09/17 20:00 130 07/09/17 19:00 Nasal Cannula 3.0 32 07/09/17 19:00 131 24 104/45 100 Nasal Cannula 3.0 07/09/17 19:00 100 Nasal Cannula 3.0 32 07/09/17 19:00 131 24 Nasal Cannula 3.0 32 07/09/17 18:00 129 22 118/51 97 Nasal Cannula 3.0 Intake and Output 07/09/17 07/10/17 19:00 07:00 Intake Total 1370 ml 1310.0 ml Output Total 705 ml 715 ml Balance 665 ml 595.0 ml Intake Oral 0 ml 0 ml IV Total 1320 ml 1310.0 ml Other 50 ml Output Urine Total 505 ml 645 ml Stool Total 20 ml Drainage Total 200 ml 50 ml Laboratory Tests Test 07/10/17 03:40 07/10/17 08:55 07/10/17 16:00 White Blood Count 12.8 K/UL (4.8-10.8) H Red Blood Count 3.61 M/UL (4.70-6.10) L Hemoglobin 11.5 G/DL (14.2-18.0) L Hematocrit 33.2 % (42.0-52.0) L Mean Corpuscular Volume 92 FL (80-99) Mean Corpuscular Hemoglobin 31.9 PG (27.0-31.0) H Mean Corpuscular Hemoglobin Concent 34.7 G/DL (32.0-36.0) Red Cell Distribution Width 12.6 % (11.6-14.8) Platelet Count 188 K/UL (150-450) Mean Platelet Volume 5.8 FL (6.5-10.1) L Neutrophils (%) (Auto) % (45.0-75.0) Lymphocytes (%) (Auto) % (20.0-45.0) Monocytes (%) (Auto) % (1.0-10.0) Eosinophils (%) (Auto) % (0.0-3.0) Basophils (%) (Auto) % (0.0-2.0) Sodium Level 140 MMOL/L (136-145) Potassium Level 3.3 MMOL/L (3.5-5.1) L Chloride Level 107 MMOL/L (98-107) Carbon Dioxide Level 27 MMOL/L (21-32) Anion Gap 6 mmol/L (5-15) Blood Urea Nitrogen 14 mg/dL (7-18) Creatinine 0.8 MG/DL (0.55-1.30) Estimat Glomerular Filtration Rate > 60 mL/min (>60) Glucose Level 130 MG/DL (74-106) H Uric Acid 2.5 MG/DL (2.6-7.2) L Calcium Level 7.2 MG/DL (8.5-10.1) L Phosphorus Level 1.7 MG/DL (2.5-4.9) L Magnesium Level 1.7 MG/DL (1.8-2.4) L Total Bilirubin 0.8 MG/DL (0.2-1.0) Aspartate Amino Transf (AST/SGOT) 47 U/L (15-37) H Alanine Aminotransferase (ALT/SGPT) 17 U/L (12-78) Alkaline Phosphatase 71 U/L (46-116) C-Reactive Protein, Quantitative 26.5 mg/dL (0.00-0.90) H Pending Pro-B-Type Natriuretic Peptide 398 pg/mL (0-125) H Total Protein 4.6 G/DL (6.4-8.2) L Albumin 1.6 G/DL (3.4-5.0) L Globulin 3.0 g/dL Albumin/Globulin Ratio 0.5 (1.0-2.7) L Cortisol AM Sample 16.4 UG/DL Arterial Blood pH 7.450 (7.350-7.450) Arterial Blood Partial Pressure CO2 33.5 mmHg (35.0-45.0) L Arterial Blood Partial Pressure O2 61.5 mmHg (75.0-100.0) L Arterial Blood HCO3 23.1 mmol/L (22.0-26.0) Arterial Blood Oxygen Saturation 91.7 % (92.0-98.0) L Arterial Blood Base Excess -0.3 Enio Test Positive Troponin I 0.000 ng/mL (0.000-0.056) Height (Feet): 5 Height (Inches): 9.00 Weight (Pounds): 140 General Appearance: WD/WN, no apparent distress, alert, thin Cardiovascular: normal rate Respiratory/Chest: normal breath sounds, no respiratory distress Abdominal Exam: normal bowel sounds, non tender, soft, other - colostomy Extremities: non-tender Samia Albarran N.P. Jul 10, 2017 17:07
[2017-07-10] MEDS ORDERED: Nitroglycerin Subl 0.4mg tab SL PRN (18:35)
[2017-07-10] MEDS ORDERED: Albuterol ud Inhalation HHN PRN (19:00)
[2017-07-10] MEDS ORDERED: LORazepam Inj 2mg/ml 1ml IV PRN (19:00)
[2017-07-10] MEDS ORDERED: Hydromorphone 0.5mg/0.5ml inj IVP PRN (19:00)
[2017-07-10] MEDS ORDERED: Tubing IV Secondary IV ONE (20:24)
[2017-07-10] MEDS ORDERED: NS 275ml ONE (20:24)
[2017-07-10] MEDS ORDERED: Haloperidol 5mg/ml Inj IM SCH (21:00)
[2017-07-11] VITALS (7 sets, daily range): BP systolic 119–136; BP diastolic 74–106
[2017-07-11] MEDS: Piperacillin/Tazobactam 3.375 GM in D5W 110 ML IVPB SCH ×2 (05:45→15:22)
[2017-07-11 07:14] LABS: EOSINOPHILS % (AUTO) 1.4 % (0.0-3.0); HEMATOCRIT 32.1 % (42.0-52.0); HEMOGLOBIN 10.8 G/DL (14.2-18.0); LYMPHOCYTES % (AUTO) 9.9 % (20.0-45.0); MEAN CORPUSCULAR VOLUME 93 FL (80-99); MONOCYTES % (AUTO) 7.4 % (1.0-10.0); NEUTROPHILS % (AUTO) 80.3 % (45.0-75.0); PLATELET COUNT 206 K/UL (150-450); RED BLOOD COUNT 3.44 M/UL (4.70-6.10); RED CELL DISTRIBUTION WIDTH 12.8 % (11.6-14.8)
[2017-07-11 07:35] LABS: ALANINE AMINOTRANSFERASE 19 U/L (12-78); ALBUMIN 1.4 G/DL (3.4-5.0); ALBUMIN/GLOBULIN RATIO 0.4 (1.0-2.7); ALKALINE PHOSPHATASE 113 U/L (46-116); ANION GAP 6 mmol/L (5-15); ASPARTATE AMINO TRANSFERASE 40 U/L (15-37); BILIRUBIN,TOTAL 0.5 MG/DL (0.2-1.0); BLOOD UREA NITROGEN 9 mg/dL (7-18); CALCIUM 7.4 MG/DL (8.5-10.1); CARBON DIOXIDE 27 MMOL/L (21-32); CHLORIDE 108 MMOL/L (98-107); CREATININE 0.7 MG/DL (0.55-1.30); PHOSPHORUS 2.6 MG/DL (2.5-4.9); POTASSIUM 3.2 MMOL/L (3.5-5.1); SODIUM 141 MMOL/L (136-145)
[2017-07-11] MEDS ORDERED: Pantoprazole Inj IV SCH (09:00)
[2017-07-11] MEDS: D5NS 1,000 ML IV SCH ×2 (09:11→22:17)
[2017-07-11] MEDS: Heparin 5000 units/ml inj SUBQ SCH ×2 (09:13→22:20)
--- NOTE | 2017-07-11 09:19 | General Progress Note ---
Progress Note Progress Note Surgery: no acute events. tolerating clears. no n/v. low grade fevers. pain okay. neuro status somewhat improved today as he is responsive and follows commands and is not muttering random words. labs reviewed. no leukocytosis. abd soft, mild distention, ostomy viable with some liquid stool in bag, drains with serous output. midline wound with serous drainage that is accumulating. margaret removed given fluid accumulation. wound cleaned, fluid evacuated, dressings applied. -d/c horan -TID packing and dressings to midline wound -keep on clears -get out of bed today -cont IV abx Gilberto Michelle Jul 11, 2017 09:19
--- NOTE | 2017-07-11 09:45 | Pulmonology Progress Note ---
Assessment/Plan Problems: (1) Perforated abdominal viscus (2) ARF (acute renal failure) (3) Psychosis (4) Acute constipation (5) Amphetamine abuse Assessment/Plan improving npo iv fluids All medications and treatment were reviewed med/surg Subjective ROS Limited/Unobtainable: No Constitutional: Reports: no symptoms HEENT: Repors: no symptoms Respiratory: Reports: no symptoms Allergies: Coded Allergies: No Known Allergies (Unverified , 01/20/17) Objective Last 24 Hour Vital Signs Date Time Temp Pulse Resp B/P (MAP) Pulse Ox O2 Delivery O2 Flow Rate FiO2 07/11/17 04:00 98.2 104 20 127/74 95 Nasal Cannula 2.0 98.2 07/11/17 04:00 94 07/11/17 00:00 111 07/11/17 00:00 97.9 108 20 119/84 94 Nasal Cannula 2.0 97.9 07/10/17 21:54 100.4 07/10/17 21:24 100.4 07/10/17 20:00 100.4 114 27 131/83 97 Nasal Cannula 2.0 100.4 07/10/17 20:00 112 07/10/17 19:30 Nasal Cannula 2.0 28 07/10/17 19:30 98 Nasal Cannula 2.0 28 07/10/17 19:30 118 20 Nasal Cannula 2.0 28 07/10/17 17:00 119 30 127/71 95 Nasal Cannula 2.0 07/10/17 16:00 97.7 115 35 132/78 95 Nasal Cannula 3.0 97.7 07/10/17 16:00 111 07/10/17 15:00 116 25 133/69 94 Nasal Cannula 2.0 07/10/17 14:00 118 37 132/70 96 Nasal Cannula 2.0 07/10/17 13:00 113 36 136/74 95 Nasal Cannula 2.0 07/10/17 12:00 115 07/10/17 12:00 97.5 106 32 125/71 97 Nasal Cannula 3.0 97.5 07/10/17 11:00 108 24 116/63 99 Nasal Cannula 2.0 07/10/17 10:00 115 37 113/69 97 Nasal Cannula 2.0 07/10/17 09:51 Nasal Cannula 2.0 28 07/10/17 09:51 100 Nasal Cannula 2.0 28 07/10/17 09:50 115 18 Nasal Cannula 2.0 28 Intake and Output 07/10/17 07/11/17 19:00 07:00 Intake Total 1517.4 ml Output Total 1645 ml 2550 ml Balance -127.6 ml -2550 ml Intake Oral 580 ml IV Total 937.4 ml Output Urine Total 975 ml 595 ml Stool Total 500 ml 1625 ml Drainage Total 170 ml 330 ml Objective General Appearance: WD/WN Lines, tubes and drains: peripheral HEENT: normocephalic, atraumatic Neck: non-tender, normal alignment Respiratory/Chest: chest wall non-tender, lungs clear Breasts: no masses Cardiovascular/Chest: normal peripheral pulses, normal rate Abdomen: normal bowel sounds, clean dressing Genitourinary/Rectal: normal genital exam, heme negative stool Extremities: normal range of motion, non-tender Skin Exam: normal pigmentation Microbiology Date/Time Source Procedure Growth Status 07/09/17 17:00 Sputum Gram Stain Pending Resulted 07/09/17 17:00 Sputum Sputum Culture - Preliminary NO GROWTH AFTER 24 HOURS Resulted 07/08/17 16:33 Bowel Gram Stain - Final Resulted 07/08/17 16:33 Aerobic Culture - Preliminary Escherichia Coli Resulted 07/08/17 16:33 Bowel Anaerobic Culture - Preliminary Resulted Laboratory Tests 07/10/17 16:00: Troponin I 0.000, C-Reactive Protein, Quantitative > 70.0H 07/11/17 06:00: Troponin I 0.001, White Blood Count 9.0, Red Blood Count 3.44L, Hemoglobin 10.8L , Hematocrit 32.1L, Mean Corpuscular Volume 93, Mean Corpuscular Hemoglobin 31.4H, Mean Corpuscular Hemoglobin Concent 33.7, Red Cell Distribution Width 12.8, Platelet Count 206, Mean Platelet Volume 5.5L, Neutrophils (%) (Auto) 80.3H, Lymphocytes (%) (Auto) 9.9L, Monocytes (%) (Auto) 7.4, Eosinophils (%) ( Auto) 1.4, Basophils (%) (Auto) 1.0, Sodium Level 141, Potassium Level 3.2L, Chloride Level 108H, Carbon Dioxide Level 27, Anion Gap 6, Blood Urea Nitrogen 9 , Creatinine 0.7, Estimat Glomerular Filtration Rate > 60, Glucose Level 110H, Uric Acid 1.7L, Calcium Level 7.4L, Phosphorus Level 2.6, Magnesium Level 1.6L, Total Bilirubin 0.5, Aspartate Amino Transf (AST/SGOT) 40H, Alanine Aminotransferase (ALT/SGPT) 19, Alkaline Phosphatase 113, Pro-B-Type Natriuretic Peptide 1150H, Total Protein 4.6L, Albumin 1.4L, Globulin 3.2, Albumin/Globulin Ratio 0.4L Current Medications Medications (Trade) Dose Ordered Sig/Kayy Route PRN Reason Start Time Stop Time Status Last Admin Dose Admin Albuterol Sulfate (Proventil) 2.5 mg Q12H PRN HHN Shortness of Breath Discomfort 07/10/17 19:00 07/15/17 18:59 Dextrose (Dextrose 50%) STAT PRN IV Hypoglycemia 07/10/17 19:00 08/05/17 18:59 Dextrose/Sodium Chloride 1,000 ml @ 75 mls/hr [id number] IV 07/10/17 19:30 08/09/17 19:29 07/11/17 09:11 Haloperidol Lactate (Haldol) 5 mg BEDTIME IM 07/10/17 21:00 08/08/17 20:59 07/10/17 21:23 Heparin Sodium (Porcine) (Heparin 5000 units/ml) 5,000 units EVERY 12 HOURS SUBQ 07/10/17 21:00 08/02/17 08:59 07/11/17 09:13 Hydromorphone HCl (Dilaudid) 0.5 mg Q3H PRN IVP Pain Score 1-3 07/10/17 19:00 07/15/17 18:59 Hydromorphone HCl (Dilaudid) 1 mg Q2H PRN IVP Moderate Pain (Pain Scale 4-6) 07/10/17 19:45 07/14/17 21:44 Hydromorphone HCl (Dilaudid) 2 mg Q3H PRN IVP pain score 7-10 07/10/17 19:00 07/15/17 18:59 07/10/17 21:24 Lorazepam (Ativan 2mg/ml 1ml) 1 mg Q1H PRN IV Anxiety/Agitation 07/10/17 19:00 07/15/17 19:59 Nitroglycerin (Ntg) 0.4 mg Q5MIN X 3 DOSES PRN SL Prn Chest Pain 07/10/17 18:35 08/09/17 18:34 Ondansetron HCl (Zofran) 4 mg Q6H PRN IVP Nausea & Vomiting 07/10/17 19:00 08/02/17 18:59 Pantoprazole (Protonix) 40 mg DAILY IV 07/11/17 09:00 08/08/17 08:59 07/11/17 09:11 Piperacillin Sod/ Tazobactam Sod 3.375 gm/Dextrose 110 ml @ 27.5 mls/hr EVERY 8 HOURS IVPB 07/10/17 22:00 07/15/17 21:59 07/11/17 05:45 YUVAL HATCH Jul 11, 2017 09:45
[2017-07-11] MEDS ORDERED: D5NS 1,000 ML IV SCH (11:00)
[2017-07-11] MEDS ORDERED: Potassium Chloride 40 MEQ in Sodium Chloride 500ML 550 ML IVPB ONE (11:30)
--- NOTE | 2017-07-11 12:01 | GI Progress Note ---
Assessment/Plan Problems: (1) Therapeutic opioid-induced constipation (OIC) ICD Codes: K59.03 - Drug induced constipation; T40.2X5A - Adverse effect of other opioids, initial encounter SNOMED: 521458524018657 (2) Psychiatric disorder ICD Codes: F99 - Mental disorder, not otherwise specified SNOMED: 69864193, 750894811 (3) Amphetamine abuse ICD Codes: F15.10 - Other stimulant abuse, uncomplicated SNOMED: 79258471 (4) Opiate dependence ICD Codes: F11.20 - Opioid dependence, uncomplicated SNOMED: 97611095 Qualifiers: Qualified Codes: F11.20 - Opioid dependence, uncomplicated (5) Acute constipation ICD Codes: K59.00 - Constipation, unspecified SNOMED: 284994325 Status: progressing Status Narrative Discussed with Dr. Castro. Assessment/Plan s/p Exploratory laparotomy, partial bowel resection fu surgical recs IVFs CLD, adv per surgery colostomy care prn transfusions serial imaging prn fu labs Subjective Subjective limited, awake Objective Last 24 Hour Vital Signs Date Time Temp Pulse Resp B/P (MAP) Pulse Ox O2 Delivery O2 Flow Rate FiO2 07/11/17 08:00 98.2 102 20 131/79 97 Nasal Cannula 2.0 98.2 07/11/17 04:00 98.2 104 20 127/74 95 Nasal Cannula 2.0 98.2 07/11/17 04:00 94 07/11/17 00:00 111 07/11/17 00:00 97.9 108 20 119/84 94 Nasal Cannula 2.0 97.9 07/10/17 21:54 100.4 07/10/17 21:24 100.4 07/10/17 20:00 100.4 114 27 131/83 97 Nasal Cannula 2.0 100.4 07/10/17 20:00 112 07/10/17 19:30 Nasal Cannula 2.0 28 07/10/17 19:30 98 Nasal Cannula 2.0 28 07/10/17 19:30 118 20 Nasal Cannula 2.0 28 07/10/17 17:00 119 30 127/71 95 Nasal Cannula 2.0 07/10/17 16:00 97.7 115 35 132/78 95 Nasal Cannula 3.0 97.7 07/10/17 16:00 111 07/10/17 15:00 116 25 133/69 94 Nasal Cannula 2.0 07/10/17 14:00 118 37 132/70 96 Nasal Cannula 2.0 07/10/17 13:00 113 36 136/74 95 Nasal Cannula 2.0 07/10/17 12:00 115 07/10/17 12:00 97.5 106 32 125/71 97 Nasal Cannula 3.0 97.5 Intake and Output 07/10/17 07/11/17 19:00 07:00 Intake Total 1517.4 ml Output Total 1645 ml 2550 ml Balance -127.6 ml -2550 ml Intake Oral 580 ml IV Total 937.4 ml Output Urine Total 975 ml 595 ml Stool Total 500 ml 1625 ml Drainage Total 170 ml 330 ml Laboratory Tests Test 07/10/17 16:00 07/11/17 06:00 Troponin I 0.000 ng/mL (0.000-0.056) 0.001 ng/mL (0.000-0.056) C-Reactive Protein, Quantitative > 70.0 mg/dL (0.00-0.90) H White Blood Count 9.0 K/UL (4.8-10.8) Red Blood Count 3.44 M/UL (4.70-6.10) L Hemoglobin 10.8 G/DL (14.2-18.0) L Hematocrit 32.1 % (42.0-52.0) L Mean Corpuscular Volume 93 FL (80-99) Mean Corpuscular Hemoglobin 31.4 PG (27.0-31.0) H Mean Corpuscular Hemoglobin Concent 33.7 G/DL (32.0-36.0) Red Cell Distribution Width 12.8 % (11.6-14.8) Platelet Count 206 K/UL (150-450) Mean Platelet Volume 5.5 FL (6.5-10.1) L Neutrophils (%) (Auto) 80.3 % (45.0-75.0) H Lymphocytes (%) (Auto) 9.9 % (20.0-45.0) L Monocytes (%) (Auto) 7.4 % (1.0-10.0) Eosinophils (%) (Auto) 1.4 % (0.0-3.0) Basophils (%) (Auto) 1.0 % (0.0-2.0) Sodium Level 141 MMOL/L (136-145) Potassium Level 3.2 MMOL/L (3.5-5.1) L Chloride Level 108 MMOL/L (98-107) H Carbon Dioxide Level 27 MMOL/L (21-32) Anion Gap 6 mmol/L (5-15) Blood Urea Nitrogen 9 mg/dL (7-18) Creatinine 0.7 MG/DL (0.55-1.30) Estimat Glomerular Filtration Rate > 60 mL/min (>60) Glucose Level 110 MG/DL (74-106) H Uric Acid 1.7 MG/DL (2.6-7.2) L Calcium Level 7.4 MG/DL (8.5-10.1) L Phosphorus Level 2.6 MG/DL (2.5-4.9) Magnesium Level 1.6 MG/DL (1.8-2.4) L Total Bilirubin 0.5 MG/DL (0.2-1.0) Aspartate Amino Transf (AST/SGOT) 40 U/L (15-37) H Alanine Aminotransferase (ALT/SGPT) 19 U/L (12-78) Alkaline Phosphatase 113 U/L (46-116) Pro-B-Type Natriuretic Peptide 1150 pg/mL (0-125) H Total Protein 4.6 G/DL (6.4-8.2) L Albumin 1.4 G/DL (3.4-5.0) L Globulin 3.2 g/dL Albumin/Globulin Ratio 0.4 (1.0-2.7) L Height (Feet): 5 Height (Inches): 9.00 Weight (Pounds): 148 General Appearance: WD/WN, no apparent distress, alert, thin Cardiovascular: normal rate Respiratory/Chest: normal breath sounds, no respiratory distress Abdominal Exam: normal bowel sounds, non tender, soft, other - colostomy Extremities: non-tender Samia Albarran N.Airam Jul 11, 2017 12:00
--- NOTE | 2017-07-11 12:48 | Nephrology Progress Note ---
Assessment/Plan Problem List: (1) ARF (acute renal failure) (2) UTI (urinary tract infection) (3) Psychiatric disorder (4) Acute abdomen Assessment Status: acute renal failure- extended left colectomy due to perf transverse colostomy creation Plan Plan: on clear liquid Post op ( OP 07/08/17) Dickens- 2D echo normal Ej Fx Albumin bollous monitor renal parameters K and Phos and Mag supplement as needed Subjective ROS Limited/Unobtainable: No Constitutional: Reports: malaise Objective Objective Last 24 Hour Vital Signs Date Time Temp Pulse Resp B/P (MAP) Pulse Ox O2 Delivery O2 Flow Rate FiO2 07/11/17 12:00 97.3 105 20 126/83 96 Nasal Cannula 2.0 97.3 07/11/17 08:00 98.2 102 20 131/79 97 Nasal Cannula 2.0 98.2 07/11/17 04:00 98.2 104 20 127/74 95 Nasal Cannula 2.0 98.2 07/11/17 04:00 94 07/11/17 00:00 111 07/11/17 00:00 97.9 108 20 119/84 94 Nasal Cannula 2.0 97.9 07/10/17 21:54 100.4 07/10/17 21:24 100.4 07/10/17 20:00 100.4 114 27 131/83 97 Nasal Cannula 2.0 100.4 07/10/17 20:00 112 07/10/17 19:30 Nasal Cannula 2.0 28 07/10/17 19:30 98 Nasal Cannula 2.0 28 07/10/17 19:30 118 20 Nasal Cannula 2.0 28 07/10/17 17:00 119 30 127/71 95 Nasal Cannula 2.0 07/10/17 16:00 97.7 115 35 132/78 95 Nasal Cannula 3.0 97.7 07/10/17 16:00 111 07/10/17 15:00 116 25 133/69 94 Nasal Cannula 2.0 07/10/17 14:00 118 37 132/70 96 Nasal Cannula 2.0 07/10/17 13:00 113 36 136/74 95 Nasal Cannula 2.0 Intake and Output 07/10/17 07/11/17 19:00 07:00 Intake Total 1517.4 ml Output Total 1645 ml 2550 ml Balance -127.6 ml -2550 ml Intake Oral 580 ml IV Total 937.4 ml Output Urine Total 975 ml 595 ml Stool Total 500 ml 1625 ml Drainage Total 170 ml 330 ml Laboratory Tests 07/10/17 16:00: Troponin I 0.000, C-Reactive Protein, Quantitative > 70.0H 07/11/17 06:00: Troponin I 0.001, White Blood Count 9.0, Red Blood Count 3.44L, Hemoglobin 10.8L , Hematocrit 32.1L, Mean Corpuscular Volume 93, Mean Corpuscular Hemoglobin 31.4H, Mean Corpuscular Hemoglobin Concent 33.7, Red Cell Distribution Width 12.8, Platelet Count 206, Mean Platelet Volume 5.5L, Neutrophils (%) (Auto) 80.3H, Lymphocytes (%) (Auto) 9.9L, Monocytes (%) (Auto) 7.4, Eosinophils (%) ( Auto) 1.4, Basophils (%) (Auto) 1.0, Sodium Level 141, Potassium Level 3.2L, Chloride Level 108H, Carbon Dioxide Level 27, Anion Gap 6, Blood Urea Nitrogen 9 , Creatinine 0.7, Estimat Glomerular Filtration Rate > 60, Glucose Level 110H, Uric Acid 1.7L, Calcium Level 7.4L, Phosphorus Level 2.6, Magnesium Level 1.6L, Total Bilirubin 0.5, Aspartate Amino Transf (AST/SGOT) 40H, Alanine Aminotransferase (ALT/SGPT) 19, Alkaline Phosphatase 113, Pro-B-Type Natriuretic Peptide 1150H, Total Protein 4.6L, Albumin 1.4L, Globulin 3.2, Albumin/Globulin Ratio 0.4L Height (Feet): 5 Height (Inches): 9.00 Weight (Pounds): 148 General Appearance: no apparent distress Cardiovascular: tachycardia Respiratory/Chest: decreased breath sounds Abdomen: distended Objective no other change NOEMY MARK Jul 11, 2017 12:48
[2017-07-11] MEDS ORDERED: Potassium Phosphate 30 MM in Sodium Chloride 500ML 550 ML IV ONE (13:30)
--- NOTE | 2017-07-11 16:03 | Infectious Diseases Prog Note ---
Assessment/Plan Assessment/Plan ASSESSMENT: The patient is a 46-year-old male with; Leukocytosis, SP history of diarrhea, SP Bowel perf Abscess Cx: E coli( ESBL) and ENTEROCOCCUS AVIUM s/p ex lap with left colectomy and transverse colostomy for perforated left colon. CT : Evidence of perforation of hollow viscus with extensive amount of free air in the upper abdomen and some free fluid is well. CRP ELEVATED ? etio infection RAMSEY: Improved HTN COPD/asthma. Smoker. History of chronic constipation. Osteoarthritis. ? CAD/WA, hx PLAN: Cont pt on IV Invanz d# 1 / 7 and DC Zosyn d# 5 Rocephin d# 5 monitor chest x-ray. Nephrology, following Blood Cx : P Surg Cons : Subjective Allergies: Coded Allergies: No Known Allergies (Unverified , 01/20/17) Subjective comfortable Objective Vital Signs Last 24 Hour Vital Signs Date Time Temp Pulse Resp B/P (MAP) Pulse Ox O2 Delivery O2 Flow Rate FiO2 07/11/17 12:00 97.3 105 20 126/83 96 Nasal Cannula 2.0 97.3 07/11/17 12:00 102 07/11/17 08:00 95 07/11/17 08:00 98.2 102 20 131/79 97 Nasal Cannula 2.0 98.2 07/11/17 04:00 98.2 104 20 127/74 95 Nasal Cannula 2.0 98.2 07/11/17 04:00 94 07/11/17 00:00 111 07/11/17 00:00 97.9 108 20 119/84 94 Nasal Cannula 2.0 97.9 07/10/17 21:54 100.4 07/10/17 21:24 100.4 07/10/17 20:00 100.4 114 27 131/83 97 Nasal Cannula 2.0 100.4 07/10/17 20:00 112 07/10/17 19:30 Nasal Cannula 2.0 28 07/10/17 19:30 98 Nasal Cannula 2.0 28 07/10/17 19:30 118 20 Nasal Cannula 2.0 28 07/10/17 17:00 119 30 127/71 95 Nasal Cannula 2.0 Height (Feet): 5 Height (Inches): 9.00 Weight (Pounds): 148 HEENT: anicteric Respiratory/Chest: no respiratory distress Cardiovascular: regular rhythm Abdomen: soft, non tender Microbiology Date/Time Source Procedure Growth Status 07/09/17 17:00 Sputum Gram Stain - Final Resulted 07/09/17 17:00 Sputum Sputum Culture - Preliminary NO GROWTH AFTER 24 HOURS Resulted 07/08/17 16:33 Bowel Gram Stain - Final Resulted 07/08/17 16:33 Aerobic Culture - Final Escherichia Coli - Esbl Enterococcus Avium Resulted 07/08/17 16:33 Bowel Anaerobic Culture - Preliminary Resulted Laboratory Tests Test 07/11/17 06:00 White Blood Count 9.0 K/UL (4.8-10.8) Red Blood Count 3.44 M/UL (4.70-6.10) L Hemoglobin 10.8 G/DL (14.2-18.0) L Hematocrit 32.1 % (42.0-52.0) L Mean Corpuscular Volume 93 FL (80-99) Mean Corpuscular Hemoglobin 31.4 PG (27.0-31.0) H Mean Corpuscular Hemoglobin Concent 33.7 G/DL (32.0-36.0) Red Cell Distribution Width 12.8 % (11.6-14.8) Platelet Count 206 K/UL (150-450) Mean Platelet Volume 5.5 FL (6.5-10.1) L Neutrophils (%) (Auto) 80.3 % (45.0-75.0) H Lymphocytes (%) (Auto) 9.9 % (20.0-45.0) L Monocytes (%) (Auto) 7.4 % (1.0-10.0) Eosinophils (%) (Auto) 1.4 % (0.0-3.0) Basophils (%) (Auto) 1.0 % (0.0-2.0) Sodium Level 141 MMOL/L (136-145) Potassium Level 3.2 MMOL/L (3.5-5.1) L Chloride Level 108 MMOL/L (98-107) H Carbon Dioxide Level 27 MMOL/L (21-32) Anion Gap 6 mmol/L (5-15) Blood Urea Nitrogen 9 mg/dL (7-18) Creatinine 0.7 MG/DL (0.55-1.30) Estimat Glomerular Filtration Rate > 60 mL/min (>60) Glucose Level 110 MG/DL (74-106) H Uric Acid 1.7 MG/DL (2.6-7.2) L Calcium Level 7.4 MG/DL (8.5-10.1) L Phosphorus Level 2.6 MG/DL (2.5-4.9) Magnesium Level 1.6 MG/DL (1.8-2.4) L Total Bilirubin 0.5 MG/DL (0.2-1.0) Aspartate Amino Transf (AST/SGOT) 40 U/L (15-37) H Alanine Aminotransferase (ALT/SGPT) 19 U/L (12-78) Alkaline Phosphatase 113 U/L (46-116) Troponin I 0.001 ng/mL (0.000-0.056) Pro-B-Type Natriuretic Peptide 1150 pg/mL (0-125) H Total Protein 4.6 G/DL (6.4-8.2) L Albumin 1.4 G/DL (3.4-5.0) L Globulin 3.2 g/dL Albumin/Globulin Ratio 0.4 (1.0-2.7) L Current Medications Medications (Trade) Dose Ordered Sig/Kayy Route PRN Reason Start Time Stop Time Status Last Admin Dose Admin Albuterol Sulfate (Proventil) 2.5 mg Q12H PRN HHN Shortness of Breath Discomfort 07/10/17 19:00 07/15/17 18:59 Dextrose (Dextrose 50%) STAT PRN IV Hypoglycemia 07/10/17 19:00 08/05/17 18:59 Dextrose/Sodium Chloride 1,000 ml @ 50 mls/hr Q20H IV 07/11/17 11:00 08/10/17 10:59 07/11/17 10:40 Haloperidol Lactate (Haldol) 5 mg BEDTIME IM 07/10/17 21:00 08/08/17 20:59 07/10/17 21:23 Heparin Sodium (Porcine) (Heparin 5000 units/ml) 5,000 units EVERY 12 HOURS SUBQ 07/10/17 21:00 08/02/17 08:59 07/11/17 09:13 Hydromorphone HCl (Dilaudid) 0.5 mg Q3H PRN IVP Pain Score 1-3 07/10/17 19:00 07/15/17 18:59 Hydromorphone HCl (Dilaudid) 1 mg Q2H PRN IVP Moderate Pain (Pain Scale 4-6) 07/10/17 19:45 07/14/17 21:44 Hydromorphone HCl (Dilaudid) 2 mg Q3H PRN IVP pain score 7-10 07/10/17 19:00 07/15/17 18:59 07/11/17 14:04 Lansoprazole (Prevacid) 30 mg DAILY ORAL 07/12/17 09:00 08/11/17 08:59 Lorazepam (Ativan 2mg/ml 1ml) 1 mg Q1H PRN IV Anxiety/Agitation 07/10/17 19:00 07/15/17 19:59 Nitroglycerin (Ntg) 0.4 mg Q5MIN X 3 DOSES PRN SL Prn Chest Pain 07/10/17 18:35 08/09/17 18:34 Ondansetron HCl (Zofran) 4 mg Q6H PRN IVP Nausea & Vomiting 07/10/17 19:00 08/02/17 18:59 Piperacillin Sod/ Tazobactam Sod 3.375 gm/Dextrose 110 ml @ 27.5 mls/hr EVERY 8 HOURS IVPB 07/10/17 22:00 07/15/17 21:59 07/11/17 15:22 Potassium Chloride (K-Dur) 40 meq DAILY ORAL 07/11/17 13:00 08/10/17 12:59 07/11/17 13:15 STEPH TOLBERT M.D. Jul 11, 2017 16:03
[2017-07-11] MEDS ORDERED: Ertapenem 1 GM in NS 55 ML IVPB SCH (17:00)
[2017-07-11] MEDS ORDERED: Tubing IV Secondary IV ONE (17:19)
[2017-07-11] MEDS ORDERED: D5NS 1000ml IV ONE (17:19)
--- NOTE | 2017-07-11 19:21 | Cardiology Progress Note ---
Assessment/Plan Assessment/Plan 1. Pleuritic chest pain. 2. Abdominal distention and pain. 3. Questionable history of colon cancer per records from [facility], not completely clear. 4. Psychiatric disorder. 5. Urine drug screen positive for amphetamines. 6. History of opiate use previously. 7. Anxiety. 8. Renal insufficiency, responded to IV fluids. 9. Rhabdomyolysis during this hospitalization due to significantly elevated CPK of 1543 at the time of admission that is resolved. 10. perforated left colon with prolonged inflammatory reaction, gross spillage, bowel ischemia 11. renal isnuf duplex neg all trop neg tele reviewed sinus tachy but less sig nwo on tele is nto tachypneic any more his respiration appear improved pro bnp not sig elevated left sided infitlrate trop neg wbc improved not febrile Subjective Cardiovascular: Denies: chest pain, palpitations Respiratory: Denies: shortness of breath Gastrointestinal/Abdominal: Reports: abdominal pain Genitourinary: Denies: burning Objective Last 24 Hour Vital Signs Date Time Temp Pulse Resp B/P (MAP) Pulse Ox O2 Delivery O2 Flow Rate FiO2 07/11/17 16:00 110 07/11/17 16:00 97.9 110 20 136/91 96 Nasal Cannula 2.0 97.9 07/11/17 12:00 97.3 105 20 126/83 96 Nasal Cannula 2.0 97.3 07/11/17 12:00 102 07/11/17 08:00 95 07/11/17 08:00 98.2 102 20 131/79 97 Nasal Cannula 2.0 98.2 07/11/17 04:00 98.2 104 20 127/74 95 Nasal Cannula 2.0 98.2 07/11/17 04:00 94 07/11/17 00:00 111 07/11/17 00:00 97.9 108 20 119/84 94 Nasal Cannula 2.0 97.9 07/10/17 21:54 100.4 07/10/17 21:24 100.4 07/10/17 20:00 100.4 114 27 131/83 97 Nasal Cannula 2.0 100.4 07/10/17 20:00 112 07/10/17 19:30 Nasal Cannula 2.0 28 07/10/17 19:30 98 Nasal Cannula 2.0 28 07/10/17 19:30 118 20 Nasal Cannula 2.0 28 General Appearance: no apparent distress, alert Neck: supple Cardiovascular: normal rate, tachycardia - midl Respiratory/Chest: lungs clear Abdomen: soft, tender Extremities: no swelling Intake and Output 07/10/17 07/11/17 19:00 07:00 Intake Total 1517.4 ml Output Total 1645 ml 2550 ml Balance -127.6 ml -2550 ml Intake Oral 580 ml IV Total 937.4 ml Output Urine Total 975 ml 595 ml Stool Total 500 ml 1625 ml Drainage Total 170 ml 330 ml Laboratory Tests Test 07/11/17 06:00 White Blood Count 9.0 K/UL (4.8-10.8) Red Blood Count 3.44 M/UL (4.70-6.10) L Hemoglobin 10.8 G/DL (14.2-18.0) L Hematocrit 32.1 % (42.0-52.0) L Mean Corpuscular Volume 93 FL (80-99) Mean Corpuscular Hemoglobin 31.4 PG (27.0-31.0) H Mean Corpuscular Hemoglobin Concent 33.7 G/DL (32.0-36.0) Red Cell Distribution Width 12.8 % (11.6-14.8) Platelet Count 206 K/UL (150-450) Mean Platelet Volume 5.5 FL (6.5-10.1) L Neutrophils (%) (Auto) 80.3 % (45.0-75.0) H Lymphocytes (%) (Auto) 9.9 % (20.0-45.0) L Monocytes (%) (Auto) 7.4 % (1.0-10.0) Eosinophils (%) (Auto) 1.4 % (0.0-3.0) Basophils (%) (Auto) 1.0 % (0.0-2.0) Sodium Level 141 MMOL/L (136-145) Potassium Level 3.2 MMOL/L (3.5-5.1) L Chloride Level 108 MMOL/L (98-107) H Carbon Dioxide Level 27 MMOL/L (21-32) Anion Gap 6 mmol/L (5-15) Blood Urea Nitrogen 9 mg/dL (7-18) Creatinine 0.7 MG/DL (0.55-1.30) Estimat Glomerular Filtration Rate > 60 mL/min (>60) Glucose Level 110 MG/DL (74-106) H Uric Acid 1.7 MG/DL (2.6-7.2) L Calcium Level 7.4 MG/DL (8.5-10.1) L Phosphorus Level 2.6 MG/DL (2.5-4.9) Magnesium Level 1.6 MG/DL (1.8-2.4) L Total Bilirubin 0.5 MG/DL (0.2-1.0) Aspartate Amino Transf (AST/SGOT) 40 U/L (15-37) H Alanine Aminotransferase (ALT/SGPT) 19 U/L (12-78) Alkaline Phosphatase 113 U/L (46-116) Troponin I 0.001 ng/mL (0.000-0.056) Pro-B-Type Natriuretic Peptide 1150 pg/mL (0-125) H Total Protein 4.6 G/DL (6.4-8.2) L Albumin 1.4 G/DL (3.4-5.0) L Globulin 3.2 g/dL Albumin/Globulin Ratio 0.4 (1.0-2.7) L Microbiology Date/Time Source Procedure Growth Status 07/09/17 17:00 Sputum Gram Stain - Final Resulted 07/09/17 17:00 Sputum Sputum Culture - Preliminary NO GROWTH AFTER 24 HOURS Resulted ANTELMO BAUMAN Jul 11, 2017 19:21
--- NOTE | 2017-07-11 19:46 | General Progress Note ---
Assessment/Plan Status: stable Assessment/Plan Schizophrenia CPT Encephalopathy PLAN: We will increase the risperidone to 3 mg at bedtime. Recommend to change the pain medication to long-acting pain medications. Subjective Date patient seen: Jul 11, 2017 Neurologic/Psychiatric: Reports: anxiety, depressed, emotional problems Allergies: Coded Allergies: No Known Allergies (Unverified , 01/20/17) Subjective the pt still confused and agitated needs prn/ the pt is tachy. the pt is disorganized and delusional waxing and waning of consciousness Objective Last 24 Hour Vital Signs Date Time Temp Pulse Resp B/P (MAP) Pulse Ox O2 Delivery O2 Flow Rate FiO2 07/11/17 16:00 110 07/11/17 16:00 97.9 110 20 136/91 96 Nasal Cannula 2.0 97.9 07/11/17 12:00 97.3 105 20 126/83 96 Nasal Cannula 2.0 97.3 07/11/17 12:00 102 07/11/17 08:00 95 07/11/17 08:00 98.2 102 20 131/79 97 Nasal Cannula 2.0 98.2 07/11/17 04:00 98.2 104 20 127/74 95 Nasal Cannula 2.0 98.2 07/11/17 04:00 94 07/11/17 00:00 111 07/11/17 00:00 97.9 108 20 119/84 94 Nasal Cannula 2.0 97.9 07/10/17 21:54 100.4 07/10/17 21:24 100.4 07/10/17 20:00 100.4 114 27 131/83 97 Nasal Cannula 2.0 100.4 07/10/17 20:00 112 Intake and Output 07/10/17 07/11/17 19:00 07:00 Intake Total 1517.4 ml Output Total 1645 ml 2550 ml Balance -127.6 ml -2550 ml Intake Oral 580 ml IV Total 937.4 ml Output Urine Total 975 ml 595 ml Stool Total 500 ml 1625 ml Drainage Total 170 ml 330 ml Laboratory Tests 07/11/17 06:00: White Blood Count 9.0, Red Blood Count 3.44L, Hemoglobin 10.8L, Hematocrit 32.1L , Mean Corpuscular Volume 93, Mean Corpuscular Hemoglobin 31.4H, Mean Corpuscular Hemoglobin Concent 33.7, Red Cell Distribution Width 12.8, Platelet Count 206, Mean Platelet Volume 5.5L, Neutrophils (%) (Auto) 80.3H, Lymphocytes (%) (Auto) 9.9L, Monocytes (%) (Auto) 7.4, Eosinophils (%) (Auto) 1.4, Basophils (%) (Auto) 1.0, Sodium Level 141, Potassium Level 3.2L, Chloride Level 108H, Carbon Dioxide Level 27, Anion Gap 6, Blood Urea Nitrogen 9, Creatinine 0.7, Estimat Glomerular Filtration Rate > 60, Glucose Level 110H, Uric Acid 1.7L, Calcium Level 7.4L, Phosphorus Level 2.6, Magnesium Level 1.6L, Total Bilirubin 0.5, Aspartate Amino Transf (AST/SGOT) 40H, Alanine Aminotransferase (ALT/SGPT) 19, Alkaline Phosphatase 113, Troponin I 0.001, Pro- B-Type Natriuretic Peptide 1150H, Total Protein 4.6L, Albumin 1.4L, Globulin 3.2 , Albumin/Globulin Ratio 0.4L Height (Feet): 5 Height (Inches): 9.00 Weight (Pounds): 148 General Appearance: no apparent distress, alert, confused, agitated Idalia Montanez M.D. Jul 11, 2017 19:46
[2017-07-11] MEDS ORDERED: Hydromorphone 0.5mg/0.5ml inj IVP PRN (20:31)
[2017-07-11] MEDS ORDERED: HYDROmorphone 1mg/ml Carpuject IVP PRN (20:31)
[2017-07-11] MEDS ORDERED: Nitroglycerin Subl 0.4mg tab SL PRN (20:32)
[2017-07-11] MEDS ORDERED: LORazepam Inj 2mg/ml 1ml IV PRN (21:00)
[2017-07-12] VITALS: BP 135/88
[2017-07-12 04:00] VITALS: BP 135/94
[2017-07-12 08:00] VITALS: BP 120/90
[2017-07-12 08:17] LABS: BASOPHILS % (AUTO) 0.9 % (0.0-2.0); EOSINOPHILS % (AUTO) 0.5 % (0.0-3.0); HEMATOCRIT 36.9 % (42.0-52.0); HEMOGLOBIN 12.5 G/DL (14.2-18.0); LYMPHOCYTES % (AUTO) 9.1 % (20.0-45.0); MEAN CORPUSCULAR VOLUME 93 FL (80-99); MONOCYTES % (AUTO) 5.6 % (1.0-10.0); NEUTROPHILS % (AUTO) 83.9 % (45.0-75.0); PLATELET COUNT 249 K/UL (150-450); RED BLOOD COUNT 3.96 M/UL (4.70-6.10); RED CELL DISTRIBUTION WIDTH 12.7 % (11.6-14.8); WHITE BLOOD COUNT 10.7 K/UL (4.8-10.8)
[2017-07-12 08:54] LABS: ALANINE AMINOTRANSFERASE 17 U/L (12-78); ALBUMIN 1.7 G/DL (3.4-5.0); ALBUMIN/GLOBULIN RATIO 0.5 (1.0-2.7); ALKALINE PHOSPHATASE 138 U/L (46-116); ANION GAP 5 mmol/L (5-15); ASPARTATE AMINO TRANSFERASE 28 U/L (15-37); BILIRUBIN,TOTAL 0.6 MG/DL (0.2-1.0); BLOOD UREA NITROGEN 7 mg/dL (7-18); CALCIUM 7.8 MG/DL (8.5-10.1); CARBON DIOXIDE 29 MMOL/L (21-32); CHLORIDE 103 MMOL/L (98-107); CREATININE 0.7 MG/DL (0.55-1.30); POTASSIUM 3.6 MMOL/L (3.5-5.1); SODIUM 137 MMOL/L (136-145)
[2017-07-12] MEDS: Heparin 5000 units/ml inj SUBQ SCH ×2 (09:18→20:41)
[2017-07-12 09:51] LABS: PHOSPHORUS 3.1 MG/DL (2.5-4.9)
--- NOTE | 2017-07-12 11:55 | Nephrology Progress Note ---
Assessment/Plan Problem List: (1) ARF (acute renal failure) (2) UTI (urinary tract infection) (3) Psychiatric disorder (4) Acute abdomen Assessment Status: acute renal failure- extended left colectomy due to perf transverse colostomy creation Plan Plan: mag supplement on clear liquid Post op ( OP 07/08/17) Dickens- 2D echo normal Ej Fx Albumin bollous monitor renal parameters K and Phos and Mag supplement as needed Subjective ROS Limited/Unobtainable: No Objective Objective Last 24 Hour Vital Signs Date Time Temp Pulse Resp B/P (MAP) Pulse Ox O2 Delivery O2 Flow Rate FiO2 07/12/17 08:15 100 Nasal Cannula 2.0 28 07/12/17 08:15 110 22 Nasal Cannula 2.0 21 07/12/17 08:15 Nasal Cannula 2.0 28 07/12/17 08:00 97.9 110 22 120/90 99 Nasal Cannula 2.0 97.9 07/12/17 04:00 97.9 101 20 135/94 94 97.9 07/12/17 04:00 Nasal Cannula 2.0 07/12/17 00:00 97.9 116 19 135/88 97 Room Air 97.9 07/11/17 20:58 98.1 115 19 134/106 96 Nasal Cannula 2.0 98.1 07/11/17 20:00 98.2 115 20 131/88 94 Nasal Cannula 2.0 98.2 07/11/17 19:30 97 Nasal Cannula 2.0 28 07/11/17 19:00 Nasal Cannula 2.0 28 07/11/17 16:00 110 07/11/17 16:00 97.9 110 20 136/91 96 Nasal Cannula 2.0 97.9 07/11/17 12:00 97.3 105 20 126/83 96 Nasal Cannula 2.0 97.3 07/11/17 12:00 102 Intake and Output 07/11/17 07/12/17 19:00 07:00 Intake Total 2258.0 ml 960 ml Output Total 1280 ml 450 ml Balance 978.0 ml 510 ml Intake Oral 1300 ml 510 ml IV Total 958.0 ml 450 ml Output Urine Total 950 ml 400 ml Stool Total 200 ml Drainage Total 130 ml 50 ml # Voids 1 # Bowel Movements 1 Laboratory Tests 07/12/17 07:30: White Blood Count 10.7, Red Blood Count 3.96L, Hemoglobin 12.5L, Hematocrit 36.9L, Mean Corpuscular Volume 93, Mean Corpuscular Hemoglobin 31.5H, Mean Corpuscular Hemoglobin Concent 33.9, Red Cell Distribution Width 12.7, Platelet Count 249, Mean Platelet Volume 5.5L, Neutrophils (%) (Auto) 83.9H, Lymphocytes (%) (Auto) 9.1L, Monocytes (%) (Auto) 5.6, Eosinophils (%) (Auto) 0.5, Basophils (%) (Auto) 0.9, Sodium Level 137, Potassium Level 3.6, Chloride Level 103, Carbon Dioxide Level 29, Anion Gap 5, Blood Urea Nitrogen 7, Creatinine 0.7 , Estimat Glomerular Filtration Rate > 60, Glucose Level 101, Calcium Level 7.8L , Phosphorus Level 3.1, Magnesium Level 1.5L, Total Bilirubin 0.6, Aspartate Amino Transf (AST/SGOT) 28, Alanine Aminotransferase (ALT/SGPT) 17, Alkaline Phosphatase 138H, Total Protein 5.4L, Albumin 1.7L, Globulin 3.7, Albumin/ Globulin Ratio 0.5L Height (Feet): 5 Height (Inches): 9.00 Weight (Pounds): 147 General Appearance: no apparent distress Objective no other change NOEMY MARK Jul 12, 2017 11:55
[2017-07-12 12:00] VITALS: BP 140/93
--- NOTE | 2017-07-12 12:20 | GI Progress Note ---
Assessment/Plan Problems: (1) Psychiatric disorder ICD Codes: F99 - Mental disorder, not otherwise specified SNOMED: 74778839, 048492298 (2) Amphetamine abuse ICD Codes: F15.10 - Other stimulant abuse, uncomplicated SNOMED: 26098365 (3) Opiate dependence ICD Codes: F11.20 - Opioid dependence, uncomplicated SNOMED: 91670646 Qualifiers: Qualified Codes: F11.20 - Opioid dependence, uncomplicated (4) Perforated abdominal viscus SNOMED: 447873174 Status: progressing Status Narrative Discussed with Dr. Castro. Assessment/Plan s/p Exploratory laparotomy, partial bowel resection fu surgical recs IVFs CLD, adv per surgery colostomy care prn transfusions serial imaging prn fu labs Subjective Subjective limited, awake Objective Last 24 Hour Vital Signs Date Time Temp Pulse Resp B/P (MAP) Pulse Ox O2 Delivery O2 Flow Rate FiO2 07/12/17 08:15 100 Nasal Cannula 2.0 28 07/12/17 08:15 110 22 Nasal Cannula 2.0 21 07/12/17 08:15 Nasal Cannula 2.0 28 07/12/17 08:00 97.9 110 22 120/90 99 Nasal Cannula 2.0 97.9 07/12/17 04:00 97.9 101 20 135/94 94 97.9 07/12/17 04:00 Nasal Cannula 2.0 07/12/17 00:00 97.9 116 19 135/88 97 Room Air 97.9 07/11/17 20:58 98.1 115 19 134/106 96 Nasal Cannula 2.0 98.1 07/11/17 20:00 98.2 115 20 131/88 94 Nasal Cannula 2.0 98.2 07/11/17 19:30 97 Nasal Cannula 2.0 28 07/11/17 19:00 Nasal Cannula 2.0 28 07/11/17 16:00 110 07/11/17 16:00 97.9 110 20 136/91 96 Nasal Cannula 2.0 97.9 Intake and Output 07/11/17 07/12/17 19:00 07:00 Intake Total 2258.0 ml 960 ml Output Total 1280 ml 450 ml Balance 978.0 ml 510 ml Intake Oral 1300 ml 510 ml IV Total 958.0 ml 450 ml Output Urine Total 950 ml 400 ml Stool Total 200 ml Drainage Total 130 ml 50 ml # Voids 1 # Bowel Movements 1 Laboratory Tests Test 07/12/17 07:30 White Blood Count 10.7 K/UL (4.8-10.8) Red Blood Count 3.96 M/UL (4.70-6.10) L Hemoglobin 12.5 G/DL (14.2-18.0) L Hematocrit 36.9 % (42.0-52.0) L Mean Corpuscular Volume 93 FL (80-99) Mean Corpuscular Hemoglobin 31.5 PG (27.0-31.0) H Mean Corpuscular Hemoglobin Concent 33.9 G/DL (32.0-36.0) Red Cell Distribution Width 12.7 % (11.6-14.8) Platelet Count 249 K/UL (150-450) Mean Platelet Volume 5.5 FL (6.5-10.1) L Neutrophils (%) (Auto) 83.9 % (45.0-75.0) H Lymphocytes (%) (Auto) 9.1 % (20.0-45.0) L Monocytes (%) (Auto) 5.6 % (1.0-10.0) Eosinophils (%) (Auto) 0.5 % (0.0-3.0) Basophils (%) (Auto) 0.9 % (0.0-2.0) Sodium Level 137 MMOL/L (136-145) Potassium Level 3.6 MMOL/L (3.5-5.1) Chloride Level 103 MMOL/L (98-107) Carbon Dioxide Level 29 MMOL/L (21-32) Anion Gap 5 mmol/L (5-15) Blood Urea Nitrogen 7 mg/dL (7-18) Creatinine 0.7 MG/DL (0.55-1.30) Estimat Glomerular Filtration Rate > 60 mL/min (>60) Glucose Level 101 MG/DL (74-106) Calcium Level 7.8 MG/DL (8.5-10.1) L Phosphorus Level 3.1 MG/DL (2.5-4.9) Magnesium Level 1.5 MG/DL (1.8-2.4) L Total Bilirubin 0.6 MG/DL (0.2-1.0) Aspartate Amino Transf (AST/SGOT) 28 U/L (15-37) Alanine Aminotransferase (ALT/SGPT) 17 U/L (12-78) Alkaline Phosphatase 138 U/L (46-116) H Total Protein 5.4 G/DL (6.4-8.2) L Albumin 1.7 G/DL (3.4-5.0) L Globulin 3.7 g/dL Albumin/Globulin Ratio 0.5 (1.0-2.7) L Height (Feet): 5 Height (Inches): 9.00 Weight (Pounds): 147 General Appearance: WD/WN, no apparent distress, alert Cardiovascular: normal rate Respiratory/Chest: normal breath sounds, no respiratory distress Abdominal Exam: normal bowel sounds, non tender, soft, other - colstomy Extremities: normal range of motion, non-tender Samia Albarran N.P. Jul 12, 2017 12:20
--- NOTE | 2017-07-12 12:55 | General Progress Note ---
Assessment/Plan Status: stable, progressing Assessment/Plan Schizophrenia CPT Encephalopathy PLAN: - increase the risperidone to 3 mg at bedtime. Subjective Date patient seen: Jul 12, 2017 Neurologic/Psychiatric: Reports: anxiety, depressed Allergies: Coded Allergies: No Known Allergies (Unverified , 01/20/17) Subjective the pt still confused and less agitated. the pt is disorganized and delusional Objective Last 24 Hour Vital Signs Date Time Temp Pulse Resp B/P (MAP) Pulse Ox O2 Delivery O2 Flow Rate FiO2 07/12/17 08:15 100 Nasal Cannula 2.0 28 07/12/17 08:15 110 22 Nasal Cannula 2.0 21 07/12/17 08:15 Nasal Cannula 2.0 28 07/12/17 08:00 97.9 110 22 120/90 99 Nasal Cannula 2.0 97.9 07/12/17 04:00 97.9 101 20 135/94 94 97.9 07/12/17 04:00 Nasal Cannula 2.0 07/12/17 00:00 97.9 116 19 135/88 97 Room Air 97.9 07/11/17 20:58 98.1 115 19 134/106 96 Nasal Cannula 2.0 98.1 07/11/17 20:00 98.2 115 20 131/88 94 Nasal Cannula 2.0 98.2 07/11/17 19:30 97 Nasal Cannula 2.0 28 07/11/17 19:00 Nasal Cannula 2.0 28 07/11/17 16:00 110 07/11/17 16:00 97.9 110 20 136/91 96 Nasal Cannula 2.0 97.9 Intake and Output 07/11/17 07/12/17 19:00 07:00 Intake Total 2258.0 ml 960 ml Output Total 1280 ml 450 ml Balance 978.0 ml 510 ml Intake Oral 1300 ml 510 ml IV Total 958.0 ml 450 ml Output Urine Total 950 ml 400 ml Stool Total 200 ml Drainage Total 130 ml 50 ml # Voids 1 # Bowel Movements 1 Laboratory Tests 07/12/17 07:30: White Blood Count 10.7, Red Blood Count 3.96L, Hemoglobin 12.5L, Hematocrit 36.9L, Mean Corpuscular Volume 93, Mean Corpuscular Hemoglobin 31.5H, Mean Corpuscular Hemoglobin Concent 33.9, Red Cell Distribution Width 12.7, Platelet Count 249, Mean Platelet Volume 5.5L, Neutrophils (%) (Auto) 83.9H, Lymphocytes (%) (Auto) 9.1L, Monocytes (%) (Auto) 5.6, Eosinophils (%) (Auto) 0.5, Basophils (%) (Auto) 0.9, Sodium Level 137, Potassium Level 3.6, Chloride Level 103, Carbon Dioxide Level 29, Anion Gap 5, Blood Urea Nitrogen 7, Creatinine 0.7 , Estimat Glomerular Filtration Rate > 60, Glucose Level 101, Calcium Level 7.8L , Phosphorus Level 3.1, Magnesium Level 1.5L, Total Bilirubin 0.6, Aspartate Amino Transf (AST/SGOT) 28, Alanine Aminotransferase (ALT/SGPT) 17, Alkaline Phosphatase 138H, Total Protein 5.4L, Albumin 1.7L, Globulin 3.7, Albumin/ Globulin Ratio 0.5L Height (Feet): 5 Height (Inches): 9.00 Weight (Pounds): 147 General Appearance: no apparent distress, alert, confused, agitated Neurologic: alert, oriented x 3, responsive, depressed affect Idalia Montanez M.D. Jul 12, 2017 12:55
--- NOTE | 2017-07-12 14:56 | General Progress Note ---
Progress Note Progress Note Surgery: urinary retention requiring reinsertion of horan. still complains of "severe" pain even though resting comfortable. no n/v/f/c. labs reviewed. abd soft, mild distention, incisional tenderness, stoma pink and viable. midline wound evaluated and some areas of dehiscence are noted. small and no evisceration. remaining fascia and sutures intact. drains with serous output. -continue IV Abx -keep on clear liquids -dressings to midline wound TID -pt/ot -incentive spirometry -appreciate psych input Gilberto Michelle Jul 12, 2017 14:56
[2017-07-12 16:00] VITALS: BP 127/87
[2017-07-12] MEDS: D5NS 1,000 ML IV SCH (16:30)
--- NOTE | 2017-07-12 18:06 | Pulmonology Progress Note ---
Assessment/Plan Problems: (1) Perforated abdominal viscus (2) ARF (acute renal failure) (3) Psychosis (4) Acute constipation (5) Amphetamine abuse Assessment/Plan improving npo iv fluids mg sulfate All medications and treatment were reviewed pt/ot pain management med/surg Subjective ROS Limited/Unobtainable: No Constitutional: Reports: no symptoms HEENT: Repors: no symptoms Respiratory: Reports: no symptoms Allergies: Coded Allergies: No Known Allergies (Unverified , 01/20/17) Objective Last 24 Hour Vital Signs Date Time Temp Pulse Resp B/P (MAP) Pulse Ox O2 Delivery O2 Flow Rate FiO2 07/12/17 16:00 97.7 100 18 127/87 96 Room Air 97.7 07/12/17 12:00 98.6 113 21 140/93 95 Room Air 98.6 07/12/17 08:15 100 Nasal Cannula 2.0 28 07/12/17 08:15 110 22 Nasal Cannula 2.0 21 07/12/17 08:15 Nasal Cannula 2.0 28 07/12/17 08:00 97.9 110 22 120/90 99 Nasal Cannula 2.0 97.9 07/12/17 04:00 97.9 101 20 135/94 94 97.9 07/12/17 04:00 Nasal Cannula 2.0 07/12/17 00:00 97.9 116 19 135/88 97 Room Air 97.9 07/11/17 20:58 98.1 115 19 134/106 96 Nasal Cannula 2.0 98.1 07/11/17 20:00 98.2 115 20 131/88 94 Nasal Cannula 2.0 98.2 07/11/17 19:30 97 Nasal Cannula 2.0 28 07/11/17 19:00 Nasal Cannula 2.0 28 Intake and Output 07/11/17 07/12/17 19:00 07:00 Intake Total 2258.0 ml 960 ml Output Total 1280 ml 450 ml Balance 978.0 ml 510 ml Intake Oral 1300 ml 510 ml IV Total 958.0 ml 450 ml Output Urine Total 950 ml 400 ml Stool Total 200 ml Drainage Total 130 ml 50 ml # Voids 1 # Bowel Movements 1 Objective General Appearance: WD/WN Lines, tubes and drains: peripheral HEENT: normocephalic, atraumatic Neck: non-tender, normal alignment Respiratory/Chest: chest wall non-tender, lungs clear Breasts: no masses Cardiovascular/Chest: normal peripheral pulses, normal rate Abdomen: normal bowel sounds, clean dressing Genitourinary/Rectal: normal genital exam, heme negative stool Extremities: normal range of motion, non-tender Skin Exam: normal pigmentation Laboratory Tests 07/12/17 07:30: White Blood Count 10.7, Red Blood Count 3.96L, Hemoglobin 12.5L, Hematocrit 36.9L, Mean Corpuscular Volume 93, Mean Corpuscular Hemoglobin 31.5H, Mean Corpuscular Hemoglobin Concent 33.9, Red Cell Distribution Width 12.7, Platelet Count 249, Mean Platelet Volume 5.5L, Neutrophils (%) (Auto) 83.9H, Lymphocytes (%) (Auto) 9.1L, Monocytes (%) (Auto) 5.6, Eosinophils (%) (Auto) 0.5, Basophils (%) (Auto) 0.9, Sodium Level 137, Potassium Level 3.6, Chloride Level 103, Carbon Dioxide Level 29, Anion Gap 5, Blood Urea Nitrogen 7, Creatinine 0.7 , Estimat Glomerular Filtration Rate > 60, Glucose Level 101, Calcium Level 7.8L , Phosphorus Level 3.1, Magnesium Level 1.5L, Total Bilirubin 0.6, Aspartate Amino Transf (AST/SGOT) 28, Alanine Aminotransferase (ALT/SGPT) 17, Alkaline Phosphatase 138H, Total Protein 5.4L, Albumin 1.7L, Globulin 3.7, Albumin/ Globulin Ratio 0.5L Current Medications Medications (Trade) Dose Ordered Sig/Kayy Route PRN Reason Start Time Stop Time Status Last Admin Dose Admin Albuterol Sulfate (Proventil) 2.5 mg Q12H PRN HHN Shortness of Breath Discomfort 07/11/17 20:30 07/16/17 20:29 Dextrose (Dextrose 50%) STAT PRN IV Hypoglycemia 07/11/17 20:30 08/10/17 20:29 Dextrose/Sodium Chloride 1,000 ml @ 50 mls/hr Q20H IV 07/11/17 20:30 08/10/17 10:59 07/11/17 22:17 Ertapenem 1 gm/ Sodium Chloride 55 ml @ 110 mls/hr Q24H IVPB 07/12/17 17:00 07/16/17 16:59 Finasteride (Proscar) 5 mg DAILY ORAL 07/13/17 09:00 08/12/17 08:59 Heparin Sodium (Porcine) (Heparin 5000 units/ml) 5,000 units EVERY 12 HOURS SUBQ 07/11/17 21:00 08/02/17 08:59 07/12/17 09:18 Hydromorphone HCl (Dilaudid) 0.5 mg Q3H PRN IVP Pain Score 1-3 07/11/17 20:31 07/15/17 20:30 Hydromorphone HCl (Dilaudid) 1 mg Q2H PRN IVP Moderate Pain (Pain Scale 4-6) 07/11/17 20:31 07/14/17 20:30 Hydromorphone HCl (Dilaudid) 2 mg Q3H PRN IVP pain score 7-10 07/11/17 20:31 07/15/17 20:30 07/12/17 16:06 Lansoprazole (Prevacid) 30 mg DAILY ORAL 07/12/17 09:00 08/11/17 08:59 07/12/17 09:16 Lorazepam (Ativan 2mg/ml 1ml) 1 mg Q4H PRN IV Anxiety/Agitation 07/12/17 04:15 07/15/17 19:59 Nitroglycerin (Ntg) 0.4 mg Q5MIN X 3 DOSES PRN SL Prn Chest Pain 07/11/17 20:32 08/09/17 20:31 Ondansetron HCl (Zofran) 4 mg Q6H PRN IVP Nausea & Vomiting 07/11/17 20:32 08/10/17 20:31 Potassium Chloride (K-Dur) 40 meq DAILY ORAL 07/12/17 09:00 08/10/17 12:59 07/12/17 09:16 Risperidone (RisperDAL) 3 mg BEDTIME ORAL 07/12/17 21:00 08/11/17 20:59 YUVAL HATCH Jul 12, 2017 18:06
[2017-07-12 20:00] VITALS: BP 147/88
[2017-07-12] MEDS: Ertapenem 1 GM in NS 55 ML IVPB SCH (20:39)
--- NOTE | 2017-07-12 21:03 | Infectious Diseases Prog Note ---
Assessment/Plan Assessment/Plan ASSESSMENT: The patient is a 46-year-old male with; Leukocytosis, SP history of diarrhea, SP Bowel perf Abscess Cx: E coli( ESBL) and ENTEROCOCCUS AVIUM and Bact Fragilis s/p ex lap with left colectomy and transverse colostomy for perforated left colon. CT : Evidence of perforation of hollow viscus with extensive amount of free air in the upper abdomen and some free fluid is well. CRP ELEVATED ? etio infection RAMSEY: Improved HTN COPD/asthma. Smoker. History of chronic constipation. Osteoarthritis. ? CAD/NH, hx PLAN: Cont pt on IV Invanz d# 2 / 7 07/12 SP Zosyn d# 6 Rocephin d# 5 monitor chest x-ray. Nephrology, following Blood Cx : P Surg Cons : Subjective Allergies: Coded Allergies: No Known Allergies (Unverified , 01/20/17) Subjective comfortable Objective Vital Signs Last 24 Hour Vital Signs Date Time Temp Pulse Resp B/P (MAP) Pulse Ox O2 Delivery O2 Flow Rate FiO2 07/12/17 20:00 97.1 113 20 147/88 97 97.1 07/12/17 19:45 96 Room Air 2.0 28 07/12/17 19:45 Room Air 2.0 28 07/12/17 19:44 103 18 Room Air 2.0 28 07/12/17 16:00 97.7 100 18 127/87 96 Room Air 97.7 07/12/17 12:00 98.6 113 21 140/93 95 Room Air 98.6 07/12/17 08:15 100 Nasal Cannula 2.0 28 07/12/17 08:15 110 22 Nasal Cannula 2.0 21 07/12/17 08:15 Nasal Cannula 2.0 28 07/12/17 08:00 97.9 110 22 120/90 99 Nasal Cannula 2.0 97.9 07/12/17 04:00 97.9 101 20 135/94 94 97.9 07/12/17 04:00 Nasal Cannula 2.0 07/12/17 00:00 97.9 116 19 135/88 97 Room Air 97.9 Height (Feet): 5 Height (Inches): 9.00 Weight (Pounds): 147 HEENT: mucous membranes moist Respiratory/Chest: no respiratory distress Cardiovascular: regular rhythm Abdomen: no organomegaly Laboratory Tests Test 07/12/17 07:30 White Blood Count 10.7 K/UL (4.8-10.8) Red Blood Count 3.96 M/UL (4.70-6.10) L Hemoglobin 12.5 G/DL (14.2-18.0) L Hematocrit 36.9 % (42.0-52.0) L Mean Corpuscular Volume 93 FL (80-99) Mean Corpuscular Hemoglobin 31.5 PG (27.0-31.0) H Mean Corpuscular Hemoglobin Concent 33.9 G/DL (32.0-36.0) Red Cell Distribution Width 12.7 % (11.6-14.8) Platelet Count 249 K/UL (150-450) Mean Platelet Volume 5.5 FL (6.5-10.1) L Neutrophils (%) (Auto) 83.9 % (45.0-75.0) H Lymphocytes (%) (Auto) 9.1 % (20.0-45.0) L Monocytes (%) (Auto) 5.6 % (1.0-10.0) Eosinophils (%) (Auto) 0.5 % (0.0-3.0) Basophils (%) (Auto) 0.9 % (0.0-2.0) Sodium Level 137 MMOL/L (136-145) Potassium Level 3.6 MMOL/L (3.5-5.1) Chloride Level 103 MMOL/L (98-107) Carbon Dioxide Level 29 MMOL/L (21-32) Anion Gap 5 mmol/L (5-15) Blood Urea Nitrogen 7 mg/dL (7-18) Creatinine 0.7 MG/DL (0.55-1.30) Estimat Glomerular Filtration Rate > 60 mL/min (>60) Glucose Level 101 MG/DL (74-106) Calcium Level 7.8 MG/DL (8.5-10.1) L Phosphorus Level 3.1 MG/DL (2.5-4.9) Magnesium Level 1.5 MG/DL (1.8-2.4) L Total Bilirubin 0.6 MG/DL (0.2-1.0) Aspartate Amino Transf (AST/SGOT) 28 U/L (15-37) Alanine Aminotransferase (ALT/SGPT) 17 U/L (12-78) Alkaline Phosphatase 138 U/L (46-116) H Total Protein 5.4 G/DL (6.4-8.2) L Albumin 1.7 G/DL (3.4-5.0) L Globulin 3.7 g/dL Albumin/Globulin Ratio 0.5 (1.0-2.7) L Current Medications Medications (Trade) Dose Ordered Sig/Kayy Route PRN Reason Start Time Stop Time Status Last Admin Dose Admin Albuterol Sulfate (Proventil) 2.5 mg Q12H PRN HHN Shortness of Breath Discomfort 07/11/17 20:30 07/16/17 20:29 Dextrose (Dextrose 50%) STAT PRN IV Hypoglycemia 07/11/17 20:30 08/10/17 20:29 Dextrose/Sodium Chloride 1,000 ml @ 50 mls/hr Q20H IV 07/11/17 20:30 08/10/17 10:59 07/11/17 22:17 Ertapenem 1 gm/ Sodium Chloride 55 ml @ 110 mls/hr Q24H IVPB 07/12/17 17:00 07/16/17 16:59 07/12/17 20:39 Finasteride (Proscar) 5 mg DAILY ORAL 07/13/17 09:00 08/12/17 08:59 Heparin Sodium (Porcine) (Heparin 5000 units/ml) 5,000 units EVERY 12 HOURS SUBQ 07/11/17 21:00 08/02/17 08:59 07/12/17 20:41 Hydromorphone HCl (Dilaudid) 0.5 mg Q3H PRN IVP Pain Score 1-3 07/11/17 20:31 07/15/17 20:30 Hydromorphone HCl (Dilaudid) 1 mg Q2H PRN IVP Moderate Pain (Pain Scale 4-6) 07/11/17 20:31 07/14/17 20:30 Hydromorphone HCl (Dilaudid) 2 mg Q3H PRN IVP pain score 7-10 07/11/17 20:31 07/15/17 20:30 07/12/17 20:39 Lansoprazole (Prevacid) 30 mg DAILY ORAL 07/12/17 09:00 08/11/17 08:59 07/12/17 09:16 Lorazepam (Ativan 2mg/ml 1ml) 1 mg Q4H PRN IV Anxiety/Agitation 07/12/17 04:15 07/15/17 19:59 Nitroglycerin (Ntg) 0.4 mg Q5MIN X 3 DOSES PRN SL Prn Chest Pain 07/11/17 20:32 08/09/17 20:31 Ondansetron HCl (Zofran) 4 mg Q6H PRN IVP Nausea & Vomiting 07/11/17 20:32 08/10/17 20:31 Potassium Chloride (K-Dur) 40 meq DAILY ORAL 07/12/17 09:00 08/10/17 12:59 07/12/17 09:16 Risperidone (RisperDAL) 3 mg BEDTIME ORAL 07/12/17 21:00 08/11/17 20:59 07/12/17 20:39 STEPH TOLBERT M.D. Jul 12, 2017 21:03
[2017-07-12] MEDS: LORazepam Inj 2mg/ml 1ml IV PRN (22:34)
[2017-07-13] VITALS: BP 133/81
[2017-07-13 04:00] VITALS: BP 118/72
[2017-07-13] MEDS: D5NS 1,000 ML IV SCH (04:27)
[2017-07-13 08:00] VITALS: BP 110/69
[2017-07-13] MEDS: Heparin 5000 units/ml inj SUBQ SCH ×2 (08:38→21:11)
[2017-07-13 09:13] LABS: HEMATOCRIT 33.8 % (42.0-52.0); HEMOGLOBIN 11.6 G/DL (14.2-18.0); MEAN CORPUSCULAR VOLUME 92 FL (80-99); PLATELET COUNT 264 K/UL (150-450); RED BLOOD COUNT 3.66 M/UL (4.70-6.10); RED CELL DISTRIBUTION WIDTH 12.6 % (11.6-14.8); WHITE BLOOD COUNT 16.9 K/UL (4.8-10.8)
[2017-07-13 09:15] LABS: ANION GAP 5 mmol/L (5-15); BLOOD UREA NITROGEN 5 mg/dL (7-18); CALCIUM 7.8 MG/DL (8.5-10.1); CARBON DIOXIDE 33 MMOL/L (21-32); CHLORIDE 97 MMOL/L (98-107); CREATININE 0.7 MG/DL (0.55-1.30); POTASSIUM 3.7 MMOL/L (3.5-5.1); SODIUM 135 MMOL/L (136-145)
[2017-07-13 12:00] VITALS: BP 117/76
--- NOTE | 2017-07-13 12:18 | General Progress Note ---
Progress Note Progress Note Surgery: no acute events. comfortable. asking for more pain meds. no n/v/f/c. leukocytosis midline wound with small areas of dehiscence but stable. drains with serous drainage high risk for intra abdominal abscess given presenting findings. currently stable but if leukocytosis worsening, becomes febrile, or condition does not improve, may require going back to OR for exploration and another washout. -trend labs -keep on clears -dressing changes TID -drain care and management. -cont IV Abx Gilberto Michelle Jul 13, 2017 12:18
--- NOTE | 2017-07-13 12:25 | Infectious Diseases Prog Note ---
Assessment/Plan Assessment/Plan ASSESSMENT: The patient is a 46-year-old male with; Leukocytosis, history of diarrhea, SP Bowel perf Abscess Cx: E coli( ESBL) and ENTEROCOCCUS AVIUM and Bact Fragilis s/p ex lap with left colectomy and transverse colostomy for perforated left colon. CT : Evidence of perforation of hollow viscus with extensive amount of free air in the upper abdomen and some free fluid is well. increase of WBC and Alk if worsen will oder US to ro Biliary diasease RAMSEY: Improved HTN COPD/asthma. Smoker. History of chronic constipation. Osteoarthritis. ? CAD/NC, hx PLAN: Cont pt on IV Invanz d# 3 / 7 3 SP Zosyn d# 6 Rocephin d# 5 monitor chest x-ray. Nephrology, following Blood Cx : P Surg Cons Subjective Allergies: Coded Allergies: No Known Allergies (Unverified , 01/20/17) Subjective wbc INCREASED Objective Vital Signs Last 24 Hour Vital Signs Date Time Temp Pulse Resp B/P (MAP) Pulse Ox O2 Delivery O2 Flow Rate FiO2 07/13/17 08:00 98.0 100 20 110/69 95 98.0 07/13/17 04:00 Nasal Cannula 2.0 07/13/17 04:00 98.3 123 20 118/72 95 98.3 07/13/17 00:00 97.0 113 20 133/81 98 97.0 07/13/17 00:00 Nasal Cannula 2.0 07/12/17 20:00 Nasal Cannula 2.0 07/12/17 20:00 97.1 113 20 147/88 97 97.1 07/12/17 19:45 96 Room Air 2.0 28 07/12/17 19:45 Room Air 2.0 28 07/12/17 19:44 103 18 Room Air 2.0 28 07/12/17 16:00 97.7 100 18 127/87 96 Room Air 97.7 Height (Feet): 5 Height (Inches): 9.00 Weight (Pounds): 146 HEENT: anicteric Respiratory/Chest: normal breath sounds Cardiovascular: regular rhythm Abdomen: no mass Laboratory Tests Test 07/13/17 07:45 White Blood Count 16.9 K/UL (4.8-10.8) #H Red Blood Count 3.66 M/UL (4.70-6.10) L Hemoglobin 11.6 G/DL (14.2-18.0) L Hematocrit 33.8 % (42.0-52.0) L Mean Corpuscular Volume 92 FL (80-99) Mean Corpuscular Hemoglobin 31.7 PG (27.0-31.0) H Mean Corpuscular Hemoglobin Concent 34.3 G/DL (32.0-36.0) Red Cell Distribution Width 12.6 % (11.6-14.8) Platelet Count 264 K/UL (150-450) Mean Platelet Volume 5.5 FL (6.5-10.1) L Neutrophils (%) (Auto) % (45.0-75.0) Lymphocytes (%) (Auto) % (20.0-45.0) Monocytes (%) (Auto) % (1.0-10.0) Eosinophils (%) (Auto) % (0.0-3.0) Basophils (%) (Auto) % (0.0-2.0) Differential Total Cells Counted 100 Neutrophils % (Manual) 90 % (45-75) H Lymphocytes % (Manual) 5 % (20-45) L Monocytes % (Manual) 5 % (1-10) Eosinophils % (Manual) 0 % (0-3) Basophils % (Manual) 0 % (0-2) Band Neutrophils 0 % (0-8) Platelet Estimate Adequate Platelet Morphology Normal Anisocytosis 1+ Sodium Level 135 MMOL/L (136-145) L Potassium Level 3.7 MMOL/L (3.5-5.1) Chloride Level 97 MMOL/L (98-107) L Carbon Dioxide Level 33 MMOL/L (21-32) H Anion Gap 5 mmol/L (5-15) Blood Urea Nitrogen 5 mg/dL (7-18) L Creatinine 0.7 MG/DL (0.55-1.30) Estimat Glomerular Filtration Rate > 60 mL/min (>60) Glucose Level 88 MG/DL (74-106) Calcium Level 7.8 MG/DL (8.5-10.1) L Current Medications Medications (Trade) Dose Ordered Sig/Kayy Route PRN Reason Start Time Stop Time Status Last Admin Dose Admin Albuterol Sulfate (Proventil) 2.5 mg Q12H PRN HHN Shortness of Breath Discomfort 07/11/17 20:30 07/16/17 20:29 Dextrose (Dextrose 50%) STAT PRN IV Hypoglycemia 07/11/17 20:30 08/10/17 20:29 Dextrose/Sodium Chloride 1,000 ml @ 50 mls/hr Q20H IV 07/11/17 20:30 08/10/17 10:59 07/13/17 04:27 Ertapenem 1 gm/ Sodium Chloride 55 ml @ 110 mls/hr Q24H IVPB 07/12/17 17:00 07/16/17 16:59 07/12/17 20:39 Finasteride (Proscar) 5 mg DAILY ORAL 07/13/17 09:00 08/12/17 08:59 07/13/17 08:30 Heparin Sodium (Porcine) (Heparin 5000 units/ml) 5,000 units EVERY 12 HOURS SUBQ 07/11/17 21:00 08/02/17 08:59 07/13/17 08:38 Hydromorphone HCl (Dilaudid) 0.5 mg Q3H PRN IVP Pain Score 1-3 07/11/17 20:31 07/15/17 20:30 Hydromorphone HCl (Dilaudid) 1 mg Q2H PRN IVP Moderate Pain (Pain Scale 4-6) 07/11/17 20:31 07/14/17 20:30 Hydromorphone HCl (Dilaudid) 2 mg Q3H PRN IVP pain score 7-10 07/11/17 20:31 07/15/17 20:30 07/13/17 08:27 Lansoprazole (Prevacid) 30 mg DAILY ORAL 07/12/17 09:00 08/11/17 08:59 07/13/17 08:30 Lorazepam (Ativan 2mg/ml 1ml) 1 mg Q4H PRN IV Anxiety/Agitation 07/12/17 04:15 07/15/17 19:59 07/12/17 22:34 Nitroglycerin (Ntg) 0.4 mg Q5MIN X 3 DOSES PRN SL Prn Chest Pain 07/11/17 20:32 08/09/17 20:31 Ondansetron HCl (Zofran) 4 mg Q6H PRN IVP Nausea & Vomiting 07/11/17 20:32 08/10/17 20:31 Potassium Chloride (K-Dur) 40 meq DAILY ORAL 07/12/17 09:00 08/10/17 12:59 07/13/17 08:30 Risperidone (RisperDAL) 3 mg BEDTIME ORAL 07/12/17 21:00 08/11/17 20:59 07/12/17 20:39 STEPH TOLBERT M.D. Jul 13, 2017 12:25
--- NOTE | 2017-07-13 12:57 | GI Progress Note ---
Assessment/Plan Problems: (1) Psychiatric disorder ICD Codes: F99 - Mental disorder, not otherwise specified SNOMED: 97417152, 490392560 (2) Amphetamine abuse ICD Codes: F15.10 - Other stimulant abuse, uncomplicated SNOMED: 53549722 (3) Opiate dependence ICD Codes: F11.20 - Opioid dependence, uncomplicated SNOMED: 87188315 Qualifiers: Qualified Codes: F11.20 - Opioid dependence, uncomplicated (4) Perforated abdominal viscus SNOMED: 249569841 Status: stable Status Narrative Discussed with Dr. Castro. Assessment/Plan s/p Exploratory laparotomy, partial bowel resection fu surgical recs IVFs CLD, adv per surgery colostomy care prn transfusions serial imaging prn fu labs Subjective Subjective limited, awake Objective Last 24 Hour Vital Signs Date Time Temp Pulse Resp B/P (MAP) Pulse Ox O2 Delivery O2 Flow Rate FiO2 07/13/17 08:00 98.0 100 20 110/69 95 98.0 07/13/17 04:00 Nasal Cannula 2.0 07/13/17 04:00 98.3 123 20 118/72 95 98.3 07/13/17 00:00 97.0 113 20 133/81 98 97.0 07/13/17 00:00 Nasal Cannula 2.0 07/12/17 20:00 Nasal Cannula 2.0 07/12/17 20:00 97.1 113 20 147/88 97 97.1 07/12/17 19:45 96 Room Air 2.0 28 07/12/17 19:45 Room Air 2.0 28 07/12/17 19:44 103 18 Room Air 2.0 28 07/12/17 16:00 97.7 100 18 127/87 96 Room Air 97.7 Intake and Output 07/12/17 07/13/17 19:00 07:00 Intake Total 1080 ml 510 ml Output Total 1505 ml 1290 ml Balance -425 ml -780 ml Intake Oral 480 ml IV Total 600 ml 510 ml Output Urine Total 1425 ml 1250 ml Drainage Total 80 ml 40 ml Laboratory Tests Test 07/13/17 07:45 White Blood Count 16.9 K/UL (4.8-10.8) #H Red Blood Count 3.66 M/UL (4.70-6.10) L Hemoglobin 11.6 G/DL (14.2-18.0) L Hematocrit 33.8 % (42.0-52.0) L Mean Corpuscular Volume 92 FL (80-99) Mean Corpuscular Hemoglobin 31.7 PG (27.0-31.0) H Mean Corpuscular Hemoglobin Concent 34.3 G/DL (32.0-36.0) Red Cell Distribution Width 12.6 % (11.6-14.8) Platelet Count 264 K/UL (150-450) Mean Platelet Volume 5.5 FL (6.5-10.1) L Neutrophils (%) (Auto) % (45.0-75.0) Lymphocytes (%) (Auto) % (20.0-45.0) Monocytes (%) (Auto) % (1.0-10.0) Eosinophils (%) (Auto) % (0.0-3.0) Basophils (%) (Auto) % (0.0-2.0) Differential Total Cells Counted 100 Neutrophils % (Manual) 90 % (45-75) H Lymphocytes % (Manual) 5 % (20-45) L Monocytes % (Manual) 5 % (1-10) Eosinophils % (Manual) 0 % (0-3) Basophils % (Manual) 0 % (0-2) Band Neutrophils 0 % (0-8) Platelet Estimate Adequate Platelet Morphology Normal Anisocytosis 1+ Sodium Level 135 MMOL/L (136-145) L Potassium Level 3.7 MMOL/L (3.5-5.1) Chloride Level 97 MMOL/L (98-107) L Carbon Dioxide Level 33 MMOL/L (21-32) H Anion Gap 5 mmol/L (5-15) Blood Urea Nitrogen 5 mg/dL (7-18) L Creatinine 0.7 MG/DL (0.55-1.30) Estimat Glomerular Filtration Rate > 60 mL/min (>60) Glucose Level 88 MG/DL (74-106) Calcium Level 7.8 MG/DL (8.5-10.1) L Height (Feet): 5 Height (Inches): 9.00 Weight (Pounds): 146 General Appearance: WD/WN, no apparent distress, alert, thin Cardiovascular: normal rate Respiratory/Chest: normal breath sounds, no respiratory distress Abdominal Exam: normal bowel sounds, non tender, soft, other - colostomy Extremities: non-tender Albarran,Saima Xavier N.P. Jul 13, 2017 12:57
--- NOTE | 2017-07-13 13:36 | Nephrology Progress Note ---
Assessment/Plan Problem List: (1) ARF (acute renal failure) (2) UTI (urinary tract infection) (3) Psychiatric disorder (4) Acute abdomen Assessment Status: WBCs rising today acute renal failure- extended left colectomy due to perf transverse colostomy creation Plan Plan: mag supplement as needed on clear liquid Post op ( OP 07/08/17) Dickens- 2D echo normal Ej Fx Albumin bollous monitor renal parameters K and Phos and Mag supplement as needed Subjective ROS Limited/Unobtainable: No Constitutional: Reports: malaise Objective Objective Last 24 Hour Vital Signs Date Time Temp Pulse Resp B/P (MAP) Pulse Ox O2 Delivery O2 Flow Rate FiO2 07/13/17 12:00 97.7 100 20 117/76 96 97.7 07/13/17 08:00 98.0 100 20 110/69 95 98.0 07/13/17 04:00 Nasal Cannula 2.0 07/13/17 04:00 98.3 123 20 118/72 95 98.3 07/13/17 00:00 97.0 113 20 133/81 98 97.0 07/13/17 00:00 Nasal Cannula 2.0 07/12/17 20:00 Nasal Cannula 2.0 07/12/17 20:00 97.1 113 20 147/88 97 97.1 07/12/17 19:45 96 Room Air 2.0 28 07/12/17 19:45 Room Air 2.0 28 07/12/17 19:44 103 18 Room Air 2.0 28 07/12/17 16:00 97.7 100 18 127/87 96 Room Air 97.7 Intake and Output 07/12/17 07/13/17 19:00 07:00 Intake Total 1080 ml 510 ml Output Total 1505 ml 1290 ml Balance -425 ml -780 ml Intake Oral 480 ml IV Total 600 ml 510 ml Output Urine Total 1425 ml 1250 ml Drainage Total 80 ml 40 ml Laboratory Tests 07/13/17 07:45: White Blood Count 16.9#H, Red Blood Count 3.66L, Hemoglobin 11.6L, Hematocrit 33.8L, Mean Corpuscular Volume 92, Mean Corpuscular Hemoglobin 31.7H, Mean Corpuscular Hemoglobin Concent 34.3, Red Cell Distribution Width 12.6, Platelet Count 264, Mean Platelet Volume 5.5L, Neutrophils (%) (Auto) , Lymphocytes (%) ( Auto) , Monocytes (%) (Auto) , Eosinophils (%) (Auto) , Basophils (%) (Auto) , Differential Total Cells Counted 100, Neutrophils % (Manual) 90H, Lymphocytes % (Manual) 5L, Monocytes % (Manual) 5, Eosinophils % (Manual) 0, Basophils % ( Manual) 0, Band Neutrophils 0, Platelet Estimate Adequate, Platelet Morphology Normal, Anisocytosis 1+, Sodium Level 135L, Potassium Level 3.7, Chloride Level 97L, Carbon Dioxide Level 33H, Anion Gap 5, Blood Urea Nitrogen 5L, Creatinine 0.7, Estimat Glomerular Filtration Rate > 60, Glucose Level 88, Calcium Level 7.8L Height (Feet): 5 Height (Inches): 9.00 Weight (Pounds): 146 General Appearance: no apparent distress Abdomen: absent bowel sounds Objective no other change NOEMY MARK Jul 13, 2017 13:36
--- NOTE | 2017-07-13 14:52 | Pulmonology Progress Note ---
Assessment/Plan Problems: (1) Perforated abdominal viscus (2) ARF (acute renal failure) (3) Psychosis (4) Acute constipation (5) Amphetamine abuse Assessment/Plan advance diet improving iv fluids All medications and treatment were reviewed pt/ot pain management med/surg check electrolytes Subjective ROS Limited/Unobtainable: No Constitutional: Reports: no symptoms HEENT: Repors: no symptoms Respiratory: Reports: no symptoms Allergies: Coded Allergies: No Known Allergies (Unverified , 01/20/17) Objective Last 24 Hour Vital Signs Date Time Temp Pulse Resp B/P (MAP) Pulse Ox O2 Delivery O2 Flow Rate FiO2 07/13/17 12:00 97.7 100 20 117/76 96 97.7 07/13/17 08:00 98.0 100 20 110/69 95 98.0 07/13/17 04:00 Nasal Cannula 2.0 07/13/17 04:00 98.3 123 20 118/72 95 98.3 07/13/17 00:00 97.0 113 20 133/81 98 97.0 07/13/17 00:00 Nasal Cannula 2.0 07/12/17 20:00 Nasal Cannula 2.0 07/12/17 20:00 97.1 113 20 147/88 97 97.1 07/12/17 19:45 96 Room Air 2.0 28 07/12/17 19:45 Room Air 2.0 28 07/12/17 19:44 103 18 Room Air 2.0 28 07/12/17 16:00 97.7 100 18 127/87 96 Room Air 97.7 Intake and Output 07/12/17 07/13/17 19:00 07:00 Intake Total 1080 ml 510 ml Output Total 1505 ml 1290 ml Balance -425 ml -780 ml Intake Oral 480 ml IV Total 600 ml 510 ml Output Urine Total 1425 ml 1250 ml Drainage Total 80 ml 40 ml Objective General Appearance: WD/WN Lines, tubes and drains: peripheral HEENT: normocephalic, atraumatic Neck: non-tender, normal alignment Respiratory/Chest: chest wall non-tender, lungs clear Breasts: no masses Cardiovascular/Chest: normal peripheral pulses, normal rate Abdomen: normal bowel sounds, clean dressing Genitourinary/Rectal: normal genital exam, heme negative stool Extremities: normal range of motion, non-tender Skin Exam: normal pigmentation Laboratory Tests 07/13/17 07:45: White Blood Count 16.9#H, Red Blood Count 3.66L, Hemoglobin 11.6L, Hematocrit 33.8L, Mean Corpuscular Volume 92, Mean Corpuscular Hemoglobin 31.7H, Mean Corpuscular Hemoglobin Concent 34.3, Red Cell Distribution Width 12.6, Platelet Count 264, Mean Platelet Volume 5.5L, Neutrophils (%) (Auto) , Lymphocytes (%) ( Auto) , Monocytes (%) (Auto) , Eosinophils (%) (Auto) , Basophils (%) (Auto) , Differential Total Cells Counted 100, Neutrophils % (Manual) 90H, Lymphocytes % (Manual) 5L, Monocytes % (Manual) 5, Eosinophils % (Manual) 0, Basophils % ( Manual) 0, Band Neutrophils 0, Platelet Estimate Adequate, Platelet Morphology Normal, Anisocytosis 1+, Sodium Level 135L, Potassium Level 3.7, Chloride Level 97L, Carbon Dioxide Level 33H, Anion Gap 5, Blood Urea Nitrogen 5L, Creatinine 0.7, Estimat Glomerular Filtration Rate > 60, Glucose Level 88, Calcium Level 7.8L Current Medications Medications (Trade) Dose Ordered Sig/Kayy Route PRN Reason Start Time Stop Time Status Last Admin Dose Admin Albuterol Sulfate (Proventil) 2.5 mg Q12H PRN HHN Shortness of Breath Discomfort 07/11/17 20:30 07/16/17 20:29 Dextrose (Dextrose 50%) STAT PRN IV Hypoglycemia 07/11/17 20:30 08/10/17 20:29 Dextrose/Sodium Chloride 1,000 ml @ 50 mls/hr Q20H IV 07/11/17 20:30 08/10/17 10:59 07/13/17 04:27 Ertapenem 1 gm/ Sodium Chloride 55 ml @ 110 mls/hr Q24H IVPB 07/12/17 17:00 07/16/17 16:59 07/12/17 20:39 Finasteride (Proscar) 5 mg DAILY ORAL 07/13/17 09:00 08/12/17 08:59 07/13/17 08:30 Heparin Sodium (Porcine) (Heparin 5000 units/ml) 5,000 units EVERY 12 HOURS SUBQ 07/11/17 21:00 08/02/17 08:59 07/13/17 08:38 Hydromorphone HCl (Dilaudid) 0.5 mg Q3H PRN IVP Pain Score 1-3 07/11/17 20:31 07/15/17 20:30 Hydromorphone HCl (Dilaudid) 1 mg Q2H PRN IVP Moderate Pain (Pain Scale 4-6) 07/11/17 20:31 07/14/17 20:30 Hydromorphone HCl (Dilaudid) 2 mg Q3H PRN IVP pain score 7-10 07/11/17 20:31 07/15/17 20:30 07/13/17 13:29 Lansoprazole (Prevacid) 30 mg DAILY ORAL 07/12/17 09:00 08/11/17 08:59 07/13/17 08:30 Lorazepam (Ativan 2mg/ml 1ml) 1 mg Q4H PRN IV Anxiety/Agitation 07/12/17 04:15 07/15/17 19:59 07/12/17 22:34 Nitroglycerin (Ntg) 0.4 mg Q5MIN X 3 DOSES PRN SL Prn Chest Pain 07/11/17 20:32 08/09/17 20:31 Ondansetron HCl (Zofran) 4 mg Q6H PRN IVP Nausea & Vomiting 07/11/17 20:32 08/10/17 20:31 Potassium Chloride (K-Dur) 40 meq DAILY ORAL 07/12/17 09:00 08/10/17 12:59 07/13/17 08:30 Risperidone (RisperDAL) 3 mg BEDTIME ORAL 07/12/17 21:00 08/11/17 20:59 07/12/17 20:39 YUVAL HATCH Jul 13, 2017 14:52
[2017-07-13 16:00] VITALS: BP 123/76
[2017-07-13] MEDS: Ertapenem 1 GM in NS 55 ML IVPB SCH (16:23)
[2017-07-13] MEDS ORDERED: D5NS 1000ml IV ONE (16:46)
[2017-07-13 19:39] VITALS: BP 123/76
[2017-07-14] VITALS: BP 111/81
[2017-07-14] MEDS: LORazepam Inj 2mg/ml 1ml IV PRN ×2 (00:01→23:38)
[2017-07-14 04:00] VITALS: BP 118/66
[2017-07-14] MEDS: D5NS 1,000 ML IV SCH (05:47)
--- NOTE | 2017-07-14 07:40 | Nephrology Progress Note ---
Assessment/Plan Problem List: (1) ARF (acute renal failure) (2) UTI (urinary tract infection) (3) Psychiatric disorder (4) Acute abdomen Assessment Status: WBCs up acute renal failure- extended left colectomy due to perf transverse colostomy creation Plan Plan: mag supplement as needed on clear liquid Post op ( OP 07/08/17) Dickens- 2D echo normal Ej Fx Albumin bollous monitor renal parameters K and Phos and Mag supplement as needed Subjective ROS Limited/Unobtainable: No Constitutional: Reports: malaise Objective Objective Last 24 Hour Vital Signs Date Time Temp Pulse Resp B/P (MAP) Pulse Ox O2 Delivery O2 Flow Rate FiO2 07/14/17 04:00 98.2 112 20 118/66 Nasal Cannula 2.0 98.2 07/14/17 00:00 98.2 120 20 111/81 Nasal Cannula 96.0 98.2 07/13/17 19:58 97 Nasal Cannula 2.0 28 07/13/17 19:58 116 18 Nasal Cannula 2.0 28 07/13/17 19:58 Nasal Cannula 2.0 28 07/13/17 19:39 98.1 116 20 123/76 Room Air 96.0 98.1 07/13/17 16:00 Nasal Cannula 2.0 07/13/17 16:00 98.1 116 20 123/76 Room Air 96.0 98.1 07/13/17 12:00 97.7 100 20 117/76 96 97.7 07/13/17 12:00 Nasal Cannula 2.0 07/13/17 08:00 Nasal Cannula 2.0 07/13/17 08:00 98.0 100 20 110/69 95 98.0 Intake and Output 07/13/17 07/14/17 19:00 07:00 Intake Total 845 ml 400 ml Output Total 1100 ml 1135 ml Balance -255 ml -735 ml Intake Oral 140 ml IV Total 705 ml 400 ml Output Urine Total 950 ml 975 ml Stool Total 100 ml 120 ml Drainage Total 50 ml 40 ml # Voids 1 Laboratory Tests 07/13/17 07:45: White Blood Count 16.9#H, Red Blood Count 3.66L, Hemoglobin 11.6L, Hematocrit 33.8L, Mean Corpuscular Volume 92, Mean Corpuscular Hemoglobin 31.7H, Mean Corpuscular Hemoglobin Concent 34.3, Red Cell Distribution Width 12.6, Platelet Count 264, Mean Platelet Volume 5.5L, Neutrophils (%) (Auto) , Lymphocytes (%) ( Auto) , Monocytes (%) (Auto) , Eosinophils (%) (Auto) , Basophils (%) (Auto) , Differential Total Cells Counted 100, Neutrophils % (Manual) 90H, Lymphocytes % (Manual) 5L, Monocytes % (Manual) 5, Eosinophils % (Manual) 0, Basophils % ( Manual) 0, Band Neutrophils 0, Platelet Estimate Adequate, Platelet Morphology Normal, Anisocytosis 1+, Sodium Level 135L, Potassium Level 3.7, Chloride Level 97L, Carbon Dioxide Level 33H, Anion Gap 5, Blood Urea Nitrogen 5L, Creatinine 0.7, Estimat Glomerular Filtration Rate > 60, Glucose Level 88, Calcium Level 7.8L Height (Feet): 5 Height (Inches): 9.00 Weight (Pounds): 136 General Appearance: no apparent distress, lethargic Cardiovascular: tachycardia Respiratory/Chest: lungs clear Abdomen: distended Objective no other change NOEMY MARK Jul 14, 2017 07:40
[2017-07-14 08:00] VITALS: BP 105/65
[2017-07-14 08:21] LABS: HEMATOCRIT 30.9 % (42.0-52.0); HEMOGLOBIN 10.6 G/DL (14.2-18.0); MEAN CORPUSCULAR VOLUME 92 FL (80-99); PLATELET COUNT 278 K/UL (150-450); RED BLOOD COUNT 3.36 M/UL (4.70-6.10); RED CELL DISTRIBUTION WIDTH 12.3 % (11.6-14.8); WHITE BLOOD COUNT 12.1 K/UL (4.8-10.8)
[2017-07-14 08:50] LABS: ALANINE AMINOTRANSFERASE 13 U/L (12-78); ALBUMIN 1.4 G/DL (3.4-5.0); ALBUMIN/GLOBULIN RATIO 0.4 (1.0-2.7); ALKALINE PHOSPHATASE 142 U/L (46-116); ANION GAP 5 mmol/L (5-15); ASPARTATE AMINO TRANSFERASE 28 U/L (15-37); BILIRUBIN,TOTAL 0.4 MG/DL (0.2-1.0); BLOOD UREA NITROGEN 4 mg/dL (7-18); CALCIUM 7.7 MG/DL (8.5-10.1); CARBON DIOXIDE 32 MMOL/L (21-32); CHLORIDE 98 MMOL/L (98-107); CREATININE 0.7 MG/DL (0.55-1.30); POTASSIUM 3.7 MMOL/L (3.5-5.1); SODIUM 135 MMOL/L (136-145)
[2017-07-14] MEDS: Heparin 5000 units/ml inj SUBQ SCH ×2 (08:50→21:19)
--- NOTE | 2017-07-14 10:15 | Pulmonology Progress Note ---
Assessment/Plan Problems: (1) Perforated abdominal viscus (2) ARF (acute renal failure) (3) Psychosis (4) Acute constipation (5) Amphetamine abuse Assessment/Plan advance diet, still clear liquid improving iv fluids All medications and treatment were reviewed pt/ot pain management med/surg check electrolytes Subjective Constitutional: Reports: no symptoms HEENT: Repors: no symptoms Allergies: Coded Allergies: No Known Allergies (Unverified , 01/20/17) Objective Last 24 Hour Vital Signs Date Time Temp Pulse Resp B/P (MAP) Pulse Ox O2 Delivery O2 Flow Rate FiO2 07/14/17 08:36 98.2 07/14/17 08:06 98.2 07/14/17 08:00 98.3 114 20 105/65 96 98.3 07/14/17 04:00 98.2 112 20 118/66 Nasal Cannula 2.0 98.2 07/14/17 00:00 98.2 120 20 111/81 Nasal Cannula 96.0 98.2 07/13/17 19:58 97 Nasal Cannula 2.0 28 07/13/17 19:58 116 18 Nasal Cannula 2.0 28 07/13/17 19:58 Nasal Cannula 2.0 28 07/13/17 19:39 98.1 116 20 123/76 Room Air 96.0 98.1 07/13/17 16:00 Nasal Cannula 2.0 07/13/17 16:00 98.1 116 20 123/76 Room Air 96.0 98.1 07/13/17 12:00 97.7 100 20 117/76 96 97.7 07/13/17 12:00 Nasal Cannula 2.0 Intake and Output 07/13/17 07/14/17 19:00 07:00 Intake Total 845 ml 400 ml Output Total 1100 ml 1135 ml Balance -255 ml -735 ml Intake Oral 140 ml IV Total 705 ml 400 ml Output Urine Total 950 ml 975 ml Stool Total 100 ml 120 ml Drainage Total 50 ml 40 ml # Voids 1 Objective General Appearance: WD/WN Lines, tubes and drains: peripheral HEENT: normocephalic, atraumatic Neck: non-tender, normal alignment Respiratory/Chest: chest wall non-tender, lungs clear Breasts: no masses Cardiovascular/Chest: normal peripheral pulses, normal rate Abdomen: normal bowel sounds, clean dressing Genitourinary/Rectal: normal genital exam, heme negative stool Extremities: normal range of motion, non-tender Skin Exam: normal pigmentation Laboratory Tests 07/14/17 06:52: White Blood Count 12.1H, Red Blood Count 3.36L, Hemoglobin 10.6L, Hematocrit 30.9L, Mean Corpuscular Volume 92, Mean Corpuscular Hemoglobin 31.6H, Mean Corpuscular Hemoglobin Concent 34.3, Red Cell Distribution Width 12.3, Platelet Count 278, Mean Platelet Volume 6.0L, Neutrophils (%) (Auto) , Lymphocytes (%) ( Auto) , Monocytes (%) (Auto) , Eosinophils (%) (Auto) , Basophils (%) (Auto) , Neutrophils % (Manual) [Pending], Lymphocytes % (Manual) [Pending], Platelet Estimate [Pending], Platelet Morphology [Pending], Sodium Level 135L, Potassium Level 3.7, Chloride Level 98, Carbon Dioxide Level 32, Anion Gap 5, Blood Urea Nitrogen 4L, Creatinine 0.7, Estimat Glomerular Filtration Rate > 60, Glucose Level 93, Calcium Level 7.7L, Total Bilirubin 0.4, Aspartate Amino Transf (AST/ SGOT) 28, Alanine Aminotransferase (ALT/SGPT) 13, Alkaline Phosphatase 142H, Total Protein 5.0L, Albumin 1.4L, Globulin 3.6, Albumin/Globulin Ratio 0.4L Current Medications Medications (Trade) Dose Ordered Sig/Kayy Route PRN Reason Start Time Stop Time Status Last Admin Dose Admin Albuterol Sulfate (Proventil) 2.5 mg Q12H PRN HHN Shortness of Breath Discomfort 07/11/17 20:30 07/16/17 20:29 Dextrose (Dextrose 50%) STAT PRN IV Hypoglycemia 07/11/17 20:30 08/10/17 20:29 Dextrose/Sodium Chloride 1,000 ml @ 50 mls/hr Q20H IV 07/11/17 20:30 08/10/17 10:59 07/14/17 05:47 Ertapenem 1 gm/ Sodium Chloride 55 ml @ 110 mls/hr Q24H IVPB 07/12/17 17:00 07/16/17 16:59 07/13/17 16:23 Finasteride (Proscar) 5 mg DAILY ORAL 07/13/17 09:00 08/12/17 08:59 07/14/17 08:44 Heparin Sodium (Porcine) (Heparin 5000 units/ml) 5,000 units EVERY 12 HOURS SUBQ 07/11/17 21:00 08/02/17 08:59 07/14/17 08:50 Hydromorphone HCl (Dilaudid) 0.5 mg Q3H PRN IVP Pain Score 1-3 07/11/17 20:31 07/15/17 20:30 Hydromorphone HCl (Dilaudid) 1 mg Q2H PRN IVP Moderate Pain (Pain Scale 4-6) 07/11/17 20:31 07/14/17 20:30 Hydromorphone HCl (Dilaudid) 2 mg Q3H PRN IVP pain score 7-10 07/11/17 20:31 07/15/17 20:30 07/14/17 08:06 Lansoprazole (Prevacid) 30 mg DAILY ORAL 07/12/17 09:00 08/11/17 08:59 07/14/17 08:44 Lorazepam (Ativan 2mg/ml 1ml) 1 mg Q4H PRN IV Anxiety/Agitation 07/12/17 04:15 07/15/17 19:59 07/14/17 00:01 Nitroglycerin (Ntg) 0.4 mg Q5MIN X 3 DOSES PRN SL Prn Chest Pain 07/11/17 20:32 08/09/17 20:31 Ondansetron HCl (Zofran) 4 mg Q6H PRN IVP Nausea & Vomiting 07/11/17 20:32 08/10/17 20:31 Potassium Chloride (K-Dur) 40 meq DAILY ORAL 07/12/17 09:00 08/10/17 12:59 07/14/17 08:44 Risperidone (RisperDAL) 3 mg BEDTIME ORAL 07/12/17 21:00 08/11/17 20:59 07/13/17 21:09 YUVAL HATCH Jul 14, 2017 10:15
[2017-07-14 12:08] VITALS: BP 120/75
--- NOTE | 2017-07-14 13:01 | General Progress Note ---
Progress Note Progress Note Surgery: doing well. no acute events. seems more comfortable today. tolerating clears. no n/v/f/c. afebrile, HD stable, leukocytosis improved, labs improved. abd soft, incisional tenderness, mild distention, ostomy viable and bag now how gas and stool midline wound improving with granulation tissue. just above the umbilicus there is small area of fascial dehiscence with sutures noted and what seems to be omentum just under the sutures. no signs of active infection. remaining tissues granulating over. drains with serous output. -advance diet as tolerated -pt/ot -incentive spirometry -cont Abx -cont drains -cont with TID dressings changes. as good granulation tissue forms can consider delayed primary closure will follow with recs. Gilberto Michelle Jul 14, 2017 13:01
[2017-07-14 16:00] VITALS: BP 132/75
[2017-07-14] MEDS: Ertapenem 1 GM in NS 55 ML IVPB SCH (17:07)
[2017-07-14] MEDS: Albuterol ud Inhalation HHN PRN (18:48)
[2017-07-14 19:53] VITALS: BP 110/72
--- NOTE | 2017-07-14 20:38 | Infectious Diseases Prog Note ---
Assessment/Plan Assessment/Plan ASSESSMENT: The patient is a 46-year-old male with; Fever Leukocytosis, improved history of diarrhea, SP Bowel perf Abscess Cx: E coli( ESBL) and ENTEROCOCCUS AVIUM and Bact Fragilis s/p ex lap with left colectomy and transverse colostomy for perforated left colon. CT : Evidence of perforation of hollow viscus with extensive amount of free air in the upper abdomen and some free fluid is well. increase of WBC and Alk worsen will order US to ro Biliary diasease RAMSEY: Improved HTN COPD/asthma. Smoker. History of chronic constipation. Osteoarthritis. ? CAD/[place], hx PLAN: Cont pt on IV Invanz d# 4 / 7 3/ SP Zosyn d# 6 Rocephin d# 5 monitor chest x-ray. Nephrology, following Monitor ( Ur, Blood ) Cx US of liver Cxray Surg Cons Subjective Allergies: Coded Allergies: No Known Allergies (Unverified , 01/20/17) Subjective wbc improved but febrile Objective Vital Signs Last 24 Hour Vital Signs Date Time Temp Pulse Resp B/P (MAP) Pulse Ox O2 Delivery O2 Flow Rate FiO2 07/14/17 19:53 97.5 125 16 110/72 91 Room Air 97.5 07/14/17 19:10 98.4 98.4 07/14/17 18:49 98 Nasal Cannula 2.0 28 07/14/17 18:49 Nasal Cannula 2.0 28 07/14/17 18:48 115 20 Nasal Cannula 2.0 28 07/14/17 18:45 110 20 98 Nasal Cannula 2.0 28 07/14/17 17:39 101.0 07/14/17 17:09 101.0 07/14/17 16:00 101.0 116 24 132/75 96 Nasal Cannula 2.0 101.0 07/14/17 13:11 98.6 07/14/17 12:08 98.6 113 24 120/75 96 Nasal Cannula 2.0 98.6 07/14/17 08:06 98.2 07/14/17 08:00 98.3 114 20 105/65 96 98.3 07/14/17 07:02 111 18 Nasal Cannula 2.0 28 07/14/17 07:02 96 Nasal Cannula 2.0 28 07/14/17 07:02 Nasal Cannula 2.0 28 3/10/18 04:00 98.2 112 20 118/66 Nasal Cannula 2.0 98.2 07/14/17 00:00 98.2 120 20 111/81 Nasal Cannula 96.0 98.2 Height (Feet): 5 Height (Inches): 9.00 Weight (Pounds): 136 HEENT: atraumatic Respiratory/Chest: normal breath sounds Cardiovascular: regular rhythm Abdomen: non distended Laboratory Tests Test 07/14/17 06:52 White Blood Count 12.1 K/UL (4.8-10.8) H Red Blood Count 3.36 M/UL (4.70-6.10) L Hemoglobin 10.6 G/DL (14.2-18.0) L Hematocrit 30.9 % (42.0-52.0) L Mean Corpuscular Volume 92 FL (80-99) Mean Corpuscular Hemoglobin 31.6 PG (27.0-31.0) H Mean Corpuscular Hemoglobin Concent 34.3 G/DL (32.0-36.0) Red Cell Distribution Width 12.3 % (11.6-14.8) Platelet Count 278 K/UL (150-450) Mean Platelet Volume 6.0 FL (6.5-10.1) L Neutrophils (%) (Auto) % (45.0-75.0) Lymphocytes (%) (Auto) % (20.0-45.0) Monocytes (%) (Auto) % (1.0-10.0) Eosinophils (%) (Auto) % (0.0-3.0) Basophils (%) (Auto) % (0.0-2.0) Differential Total Cells Counted 100 Neutrophils % (Manual) 87 % (45-75) H Lymphocytes % (Manual) 6 % (20-45) L Monocytes % (Manual) 7 % (1-10) Eosinophils % (Manual) 0 % (0-3) Basophils % (Manual) 0 % (0-2) Band Neutrophils 0 % (0-8) Platelet Estimate Adequate Platelet Morphology Normal Hypochromasia 1+ Sodium Level 135 MMOL/L (136-145) L Potassium Level 3.7 MMOL/L (3.5-5.1) Chloride Level 98 MMOL/L (98-107) Carbon Dioxide Level 32 MMOL/L (21-32) Anion Gap 5 mmol/L (5-15) Blood Urea Nitrogen 4 mg/dL (7-18) L Creatinine 0.7 MG/DL (0.55-1.30) Estimat Glomerular Filtration Rate > 60 mL/min (>60) Glucose Level 93 MG/DL (74-106) Calcium Level 7.7 MG/DL (8.5-10.1) L Total Bilirubin 0.4 MG/DL (0.2-1.0) Aspartate Amino Transf (AST/SGOT) 28 U/L (15-37) Alanine Aminotransferase (ALT/SGPT) 13 U/L (12-78) Alkaline Phosphatase 142 U/L (46-116) H Total Protein 5.0 G/DL (6.4-8.2) L Albumin 1.4 G/DL (3.4-5.0) L Globulin 3.6 g/dL Albumin/Globulin Ratio 0.4 (1.0-2.7) L Current Medications Medications (Trade) Dose Ordered Sig/Kayy Route PRN Reason Start Time Stop Time Status Last Admin Dose Admin Acetaminophen (Tylenol) 650 mg Q6H PRN ORAL Mild Pain/Temp > 100.5 07/14/17 19:00 08/13/17 18:59 Albuterol Sulfate (Proventil) 2.5 mg Q12H PRN HHN Shortness of Breath Discomfort 07/11/17 20:30 07/16/17 20:29 07/14/17 18:48 Cefepime HCl 2 gm/ Dextrose 55 ml @ 110 mls/hr Q24H IVPB 07/14/17 20:30 07/21/17 20:29 UNV Dextrose (Dextrose 50%) STAT PRN IV Hypoglycemia 07/11/17 20:30 08/10/17 20:29 Dextrose/Sodium Chloride 1,000 ml @ 50 mls/hr Q20H IV 07/11/17 20:30 08/10/17 10:59 07/14/17 05:47 Ertapenem 1 gm/ Sodium Chloride 55 ml @ 110 mls/hr Q24H IVPB 07/12/17 17:00 07/16/17 16:59 07/14/17 17:07 Finasteride (Proscar) 5 mg DAILY ORAL 07/13/17 09:00 08/12/17 08:59 07/14/17 08:44 Heparin Sodium (Porcine) (Heparin 5000 units/ml) 5,000 units EVERY 12 HOURS SUBQ 07/11/17 21:00 08/02/17 08:59 07/14/17 08:50 Hydromorphone HCl (Dilaudid) 0.5 mg Q3H PRN IVP Pain Score 1-3 07/11/17 20:31 07/15/17 20:30 Hydromorphone HCl (Dilaudid) 2 mg Q3H PRN IVP pain score 7-10 07/11/17 20:31 07/15/17 20:30 07/14/17 17:09 Lansoprazole (Prevacid) 30 mg DAILY ORAL 07/12/17 09:00 08/11/17 08:59 07/14/17 08:44 Lorazepam (Ativan 2mg/ml 1ml) 1 mg Q4H PRN IV Anxiety/Agitation 07/12/17 04:15 07/15/17 19:59 07/14/17 00:01 Nitroglycerin (Ntg) 0.4 mg Q5MIN X 3 DOSES PRN SL Prn Chest Pain 07/11/17 20:32 08/09/17 20:31 Ondansetron HCl (Zofran) 4 mg Q6H PRN IVP Nausea & Vomiting 07/11/17 20:32 08/10/17 20:31 Potassium Chloride (K-Dur) 40 meq DAILY ORAL 07/12/17 09:00 08/10/17 12:59 07/14/17 08:44 Risperidone (RisperDAL) 3 mg BEDTIME ORAL 07/12/17 21:00 08/11/17 20:59 07/13/17 21:09 STEPH TOLBERT M.D. Jul 14, 2017 20:38
[2017-07-14] MEDS: Cefepime HCl 2 GM in NS 55 ML IVPB SCH (21:55)
[2017-07-15 00:14] VITALS: BP 121/71
[2017-07-15 04:00] VITALS: BP 107/71
[2017-07-15] MEDS: D5NS 1,000 ML IV SCH (04:38)
[2017-07-15 08:06] VITALS: BP 117/74
[2017-07-15 08:25] LABS: HEMATOCRIT 30.7 % (42.0-52.0); HEMOGLOBIN 10.6 G/DL (14.2-18.0); MEAN CORPUSCULAR VOLUME 91 FL (80-99); PLATELET COUNT 294 K/UL (150-450); RED BLOOD COUNT 3.36 M/UL (4.70-6.10); RED CELL DISTRIBUTION WIDTH 12.2 % (11.6-14.8); WHITE BLOOD COUNT 11.6 K/UL (4.8-10.8)
[2017-07-15 09:21] LABS: ALANINE AMINOTRANSFERASE 17 U/L (12-78); ALBUMIN 1.4 G/DL (3.4-5.0); ALBUMIN/GLOBULIN RATIO 0.4 (1.0-2.7); ALKALINE PHOSPHATASE 131 U/L (46-116); ANION GAP 6 mmol/L (5-15); ASPARTATE AMINO TRANSFERASE 22 U/L (15-37); BILIRUBIN,TOTAL 0.4 MG/DL (0.2-1.0); BLOOD UREA NITROGEN 5 mg/dL (7-18); CALCIUM 7.6 MG/DL (8.5-10.1); CARBON DIOXIDE 30 MMOL/L (21-32); CHLORIDE 101 MMOL/L (98-107); CREATININE 0.7 MG/DL (0.55-1.30); PHOSPHORUS 3.4 MG/DL (2.5-4.9); POTASSIUM 3.5 MMOL/L (3.5-5.1); SODIUM 137 MMOL/L (136-145)
[2017-07-15] MEDS: Albuterol ud Inhalation HHN PRN (09:30)
[2017-07-15] MEDS: Heparin 5000 units/ml inj SUBQ SCH ×2 (10:20→21:15)
--- NOTE | 2017-07-15 10:36 | Diagnostic Imaging Report ---
Indication: Cough Technique: XRAY Chest 1v Comparison: 07/10/2017 Findings: Cardiomediastinal silhouette is stable. Stable left-sided catheter is noted. There is a stable small left pleural effusion. Perihilar and basilar atelectasis/infiltrates are seen. Impression: Bilateral perihilar and basilar atelectasis/infiltrates. Left pleural effusion.
[2017-07-15 12:05] VITALS: BP 107/57
--- NOTE | 2017-07-15 12:07 | Pulmonology Progress Note ---
Assessment/Plan Problems: (1) Perforated abdominal viscus (2) ARF (acute renal failure) (3) Psychosis (4) Acute constipation (5) Amphetamine abuse Assessment/Plan advance diet improving iv fluids pt/ot pain management med/surg check electrolytes pt will be returning to his assisted living Subjective ROS Limited/Unobtainable: No Constitutional: Reports: no symptoms HEENT: Repors: no symptoms Respiratory: Reports: no symptoms Allergies: Coded Allergies: No Known Allergies (Unverified , 01/20/17) Objective Last 24 Hour Vital Signs Date Time Temp Pulse Resp B/P (MAP) Pulse Ox O2 Delivery O2 Flow Rate FiO2 07/15/17 12:05 97.0 113 21 107/57 91 Room Air 97.0 07/15/17 10:19 99.1 07/15/17 09:41 124 22 92 Nasal Cannula 2.0 07/15/17 09:31 109 22 98 Nasal Cannula 2.0 07/15/17 08:17 Nasal Cannula 2.0 07/15/17 08:16 96 Nasal Cannula 2.0 28 07/15/17 08:15 110 20 Nasal Cannula 2.0 28 07/15/17 08:06 99.1 116 21 117/74 90 Room Air 99.1 07/15/17 04:00 97.5 115 18 107/71 91 Room Air 97.5 07/15/17 00:14 97.7 115 18 121/71 Room Air 97.7 07/14/17 19:53 97.5 125 16 110/72 91 Room Air 97.5 07/14/17 19:10 98.4 98.4 07/14/17 18:49 98 Nasal Cannula 2.0 28 07/14/17 18:49 Nasal Cannula 2.0 28 07/14/17 18:48 115 20 Nasal Cannula 2.0 28 07/14/17 18:45 110 20 98 Nasal Cannula 2.0 28 07/14/17 17:39 101.0 07/14/17 17:09 101.0 07/14/17 16:00 101.0 116 24 132/75 96 Nasal Cannula 2.0 101.0 07/14/17 13:11 98.6 07/14/17 12:08 98.6 113 24 120/75 96 Nasal Cannula 2.0 98.6 Intake and Output 07/14/17 07/15/17 19:00 07:00 Intake Total 1045 ml 560 ml Output Total 850 ml 2445 ml Balance 195 ml -1885 ml Intake Oral 440 ml IV Total 605 ml 560 ml Output Urine Total 850 ml 2100 ml Stool Total 310 ml Drainage Total 35 ml Objective General Appearance: WD/WN Lines, tubes and drains: peripheral HEENT: normocephalic, atraumatic Neck: non-tender, normal alignment Respiratory/Chest: chest wall non-tender, lungs clear Breasts: no masses Cardiovascular/Chest: normal peripheral pulses, normal rate Abdomen: normal bowel sounds, clean dressing Genitourinary/Rectal: normal genital exam, heme negative stool Extremities: normal range of motion, non-tender Skin Exam: normal pigmentation Microbiology Date/Time Source Procedure Growth Status 07/14/17 22:40 Urine,Clean Catch Urine Culture - Preliminary NO GROWTH Resulted Laboratory Tests 07/15/17 06:55: White Blood Count 11.6H, Red Blood Count 3.36L, Hemoglobin 10.6L, Hematocrit 30.7L, Mean Corpuscular Volume 91, Mean Corpuscular Hemoglobin 31.5H, Mean Corpuscular Hemoglobin Concent 34.5, Red Cell Distribution Width 12.2, Platelet Count 294, Mean Platelet Volume 5.8L, Neutrophils (%) (Auto) , Lymphocytes (%) ( Auto) , Monocytes (%) (Auto) , Eosinophils (%) (Auto) , Basophils (%) (Auto) , Neutrophils % (Manual) [Pending], Lymphocytes % (Manual) [Pending], Platelet Estimate [Pending], Platelet Morphology [Pending], Sodium Level 137, Potassium Level 3.5, Chloride Level 101, Carbon Dioxide Level 30, Anion Gap 6, Blood Urea Nitrogen 5L, Creatinine 0.7, Estimat Glomerular Filtration Rate > 60, Glucose Level 105, Calcium Level 7.6L, Phosphorus Level 3.4, Magnesium Level 1.4L, Total Bilirubin 0.4, Aspartate Amino Transf (AST/SGOT) 22, Alanine Aminotransferase (ALT/SGPT) 17, Alkaline Phosphatase 131H, Total Protein 5.1L, Albumin 1.4L, Globulin 3.7, Albumin/Globulin Ratio 0.4L Current Medications Medications (Trade) Dose Ordered Sig/Kayy Route PRN Reason Start Time Stop Time Status Last Admin Dose Admin Acetaminophen (Tylenol) 650 mg Q6H PRN ORAL Mild Pain/Temp > 100.5 07/14/17 19:00 08/13/17 18:59 Albuterol Sulfate (Proventil) 2.5 mg Q12H PRN HHN Shortness of Breath Discomfort 07/11/17 20:30 07/16/17 20:29 07/15/17 09:30 Cefepime HCl 2 gm/ Sodium Chloride 55 ml @ 110 mls/hr Q24H IVPB 07/14/17 22:00 07/21/17 21:59 07/14/17 21:55 Dextrose (Dextrose 50%) STAT PRN IV Hypoglycemia 07/11/17 20:30 08/10/17 20:29 Dextrose/Sodium Chloride 1,000 ml @ 50 mls/hr Q20H IV 07/11/17 20:30 08/10/17 10:59 07/15/17 04:38 Ertapenem 1 gm/ Sodium Chloride 55 ml @ 110 mls/hr Q24H IVPB 07/12/17 17:00 07/16/17 16:59 07/14/17 17:07 Finasteride (Proscar) 5 mg DAILY ORAL 07/13/17 09:00 08/12/17 08:59 07/15/17 10:18 Heparin Sodium (Porcine) (Heparin 5000 units/ml) 5,000 units EVERY 12 HOURS SUBQ 07/11/17 21:00 08/02/17 08:59 07/15/17 10:20 Hydromorphone HCl (Dilaudid) 0.5 mg Q3H PRN IVP Pain Score 1-3 07/11/17 20:31 07/15/17 20:30 Hydromorphone HCl (Dilaudid) 2 mg Q3H PRN IVP pain score 7-10 07/11/17 20:31 07/15/17 20:30 07/15/17 10:19 Lansoprazole (Prevacid) 30 mg DAILY ORAL 07/12/17 09:00 08/11/17 08:59 07/15/17 10:18 Lorazepam (Ativan 2mg/ml 1ml) 1 mg Q4H PRN IV Anxiety/Agitation 07/12/17 04:15 07/15/17 19:59 07/14/17 23:38 Nitroglycerin (Ntg) 0.4 mg Q5MIN X 3 DOSES PRN SL Prn Chest Pain 07/11/17 20:32 08/09/17 20:31 Ondansetron HCl (Zofran) 4 mg Q6H PRN IVP Nausea & Vomiting 07/11/17 20:32 08/10/17 20:31 Potassium Chloride (K-Dur) 40 meq DAILY ORAL 07/12/17 09:00 08/10/17 12:59 07/15/17 10:17 Risperidone (RisperDAL) 3 mg BEDTIME ORAL 07/12/17 21:00 08/11/17 20:59 07/14/17 21:16 YUVAL HATCH Jul 15, 2017 12:07
--- NOTE | 2017-07-15 13:28 | General Progress Note ---
Progress Note Progress Note Surgery: doing well. no acute events. pain improved. no n/v/f/c. tolerating diet. not ambulatory yet afebrile, HD stable, leukocytosis improved, labs reviewed. abd soft, mild distention, incisional tenderness, drains with serous/sediment output, ostomy viable with liquid stool and gas in bag midline wound wider today with larger area of fascial dehiscence. fortunately looks to be area of omentum covering bowel in open areas and granulating over. given history would not recommend taking patient back for fascial closure at this time with such hostile abdomen noted during last surgery. can allow wound to granulate over and either attempt delayed closure later or skin graft. -diet as tolerated -ambulate and oob -cont abx -trend labs -dressing changes Gilberto Michelle Jul 15, 2017 13:28
--- NOTE | 2017-07-15 15:29 | Nephrology Progress Note ---
Assessment/Plan Problem List: (1) ARF (acute renal failure) (2) UTI (urinary tract infection) (3) Psychiatric disorder (4) Acute abdomen Assessment Status: WBCs up acute renal failure- extended left colectomy due to perf transverse colostomy creation Plan Plan: mag supplement as needed on clear liquid Post op ( OP 07/08/17) Dickens- 2D echo normal Ej Fx Albumin bollous monitor renal parameters K and Phos and Mag supplement as needed Subjective ROS Limited/Unobtainable: No Constitutional: Reports: malaise Objective Objective Last 24 Hour Vital Signs Date Time Temp Pulse Resp B/P (MAP) Pulse Ox O2 Delivery O2 Flow Rate FiO2 07/15/17 15:07 97.0 07/15/17 12:05 97.0 113 21 107/57 91 Room Air 97.0 07/15/17 10:45 97.0 07/15/17 10:19 99.1 07/15/17 09:41 124 22 92 Nasal Cannula 2.0 07/15/17 09:31 109 22 98 Nasal Cannula 2.0 07/15/17 08:17 Nasal Cannula 2.0 07/15/17 08:16 96 Nasal Cannula 2.0 28 07/15/17 08:15 110 20 Nasal Cannula 2.0 28 07/15/17 08:06 99.1 116 21 117/74 90 Room Air 99.1 07/15/17 04:00 97.5 115 18 107/71 91 Room Air 97.5 07/15/17 00:14 97.7 115 18 121/71 Room Air 97.7 07/14/17 19:53 97.5 125 16 110/72 91 Room Air 97.5 07/14/17 19:10 98.4 98.4 07/14/17 18:49 98 Nasal Cannula 2.0 28 07/14/17 18:49 Nasal Cannula 2.0 28 07/14/17 18:48 115 20 Nasal Cannula 2.0 28 07/14/17 18:45 110 20 98 Nasal Cannula 2.0 28 07/14/17 17:09 101.0 07/14/17 16:00 101.0 116 24 132/75 96 Nasal Cannula 2.0 101.0 Intake and Output 07/14/17 07/15/17 19:00 07:00 Intake Total 1045 ml 560 ml Output Total 850 ml 2445 ml Balance 195 ml -1885 ml Intake Oral 440 ml IV Total 605 ml 560 ml Output Urine Total 850 ml 2100 ml Stool Total 310 ml Drainage Total 35 ml Laboratory Tests 07/15/17 06:55: White Blood Count 11.6H, Red Blood Count 3.36L, Hemoglobin 10.6L, Hematocrit 30.7L, Mean Corpuscular Volume 91, Mean Corpuscular Hemoglobin 31.5H, Mean Corpuscular Hemoglobin Concent 34.5, Red Cell Distribution Width 12.2, Platelet Count 294, Mean Platelet Volume 5.8L, Neutrophils (%) (Auto) , Lymphocytes (%) ( Auto) , Monocytes (%) (Auto) , Eosinophils (%) (Auto) , Basophils (%) (Auto) , Differential Total Cells Counted 100, Neutrophils % (Manual) 86H, Lymphocytes % (Manual) 6L, Monocytes % (Manual) 5, Eosinophils % (Manual) 1, Basophils % ( Manual) 1, Band Neutrophils 1, Platelet Estimate Adequate, Platelet Morphology Normal, Hypochromasia 1+, Sodium Level 137, Potassium Level 3.5, Chloride Level 101, Carbon Dioxide Level 30, Anion Gap 6, Blood Urea Nitrogen 5L, Creatinine 0.7, Estimat Glomerular Filtration Rate > 60, Glucose Level 105, Calcium Level 7.6L, Phosphorus Level 3.4, Magnesium Level 1.4L, Total Bilirubin 0.4, Aspartate Amino Transf (AST/SGOT) 22, Alanine Aminotransferase (ALT/SGPT) 17, Alkaline Phosphatase 131H, Total Protein 5.1L, Albumin 1.4L, Globulin 3.7, Albumin/Globulin Ratio 0.4L Height (Feet): 5 Height (Inches): 9.00 Weight (Pounds): 138 General Appearance: no apparent distress Cardiovascular: tachycardia Respiratory/Chest: decreased breath sounds Abdomen: distended Objective no other change NOEMY MARK Jul 15, 2017 15:28
[2017-07-15 16:00] VITALS: BP 108/75
--- NOTE | 2017-07-15 16:01 | Cardiology Progress Note ---
Assessment/Plan Problem List: (1) Amphetamine abuse (2) COPD (chronic obstructive pulmonary disease) (3) Perforated abdominal viscus Status: stable, unchanged Status Narrative Cardiac status stable. No evidence for ACS - CK elevated on adm due to rhabdo ; troponin negative ECHO w/ preserved LV systolic function Assessment/Plan Continue post op care per surgery Monitor fluid status - does not currently appear w/ vol overload - small L pl effusion Followup labs in am Subjective Subjective Cardiology for Dr. Moncada Mr. Wilson is alert, c/o abd discomfort, nausea. no chest pain Objective Last 24 Hour Vital Signs Date Time Temp Pulse Resp B/P (MAP) Pulse Ox O2 Delivery O2 Flow Rate FiO2 07/15/17 15:07 97.0 07/15/17 12:05 97.0 113 21 107/57 91 Room Air 97.0 07/15/17 10:45 97.0 07/15/17 10:19 99.1 07/15/17 09:41 124 22 92 Nasal Cannula 2.0 07/15/17 09:31 109 22 98 Nasal Cannula 2.0 07/15/17 08:17 Nasal Cannula 2.0 07/15/17 08:16 96 Nasal Cannula 2.0 28 07/15/17 08:15 110 20 Nasal Cannula 2.0 28 07/15/17 08:06 99.1 116 21 117/74 90 Room Air 99.1 07/15/17 04:00 97.5 115 18 107/71 91 Room Air 97.5 07/15/17 00:14 97.7 115 18 121/71 Room Air 97.7 07/14/17 19:53 97.5 125 16 110/72 91 Room Air 97.5 07/14/17 19:10 98.4 98.4 07/14/17 18:49 98 Nasal Cannula 2.0 28 07/14/17 18:49 Nasal Cannula 2.0 28 07/14/17 18:48 115 20 Nasal Cannula 2.0 28 07/14/17 18:45 110 20 98 Nasal Cannula 2.0 28 07/14/17 17:09 101.0 07/14/17 16:00 101.0 116 24 132/75 96 Nasal Cannula 2.0 101.0 General Appearance: WD/WN, alert EENT: PERRL/EOMI Neck: supple, no JVD Rhythm: NSR Cardiovascular: regular rhythm, tachycardia, systolic murmur Respiratory/Chest: lungs clear Abdomen: soft, other - abd dressing intact, dry. drains (2) + BS Extremities: non-tender, no swelling Intake and Output 07/14/17 07/15/17 19:00 07:00 Intake Total 1045 ml 560 ml Output Total 850 ml 2445 ml Balance 195 ml -1885 ml Intake Oral 440 ml IV Total 605 ml 560 ml Output Urine Total 850 ml 2100 ml Stool Total 310 ml Drainage Total 35 ml Laboratory Tests Test 07/15/17 06:55 White Blood Count 11.6 K/UL (4.8-10.8) H Red Blood Count 3.36 M/UL (4.70-6.10) L Hemoglobin 10.6 G/DL (14.2-18.0) L Hematocrit 30.7 % (42.0-52.0) L Mean Corpuscular Volume 91 FL (80-99) Mean Corpuscular Hemoglobin 31.5 PG (27.0-31.0) H Mean Corpuscular Hemoglobin Concent 34.5 G/DL (32.0-36.0) Red Cell Distribution Width 12.2 % (11.6-14.8) Platelet Count 294 K/UL (150-450) Mean Platelet Volume 5.8 FL (6.5-10.1) L Neutrophils (%) (Auto) % (45.0-75.0) Lymphocytes (%) (Auto) % (20.0-45.0) Monocytes (%) (Auto) % (1.0-10.0) Eosinophils (%) (Auto) % (0.0-3.0) Basophils (%) (Auto) % (0.0-2.0) Differential Total Cells Counted 100 Neutrophils % (Manual) 86 % (45-75) H Lymphocytes % (Manual) 6 % (20-45) L Monocytes % (Manual) 5 % (1-10) Eosinophils % (Manual) 1 % (0-3) Basophils % (Manual) 1 % (0-2) Band Neutrophils 1 % (0-8) Platelet Estimate Adequate Platelet Morphology Normal Hypochromasia 1+ Sodium Level 137 MMOL/L (136-145) Potassium Level 3.5 MMOL/L (3.5-5.1) Chloride Level 101 MMOL/L (98-107) Carbon Dioxide Level 30 MMOL/L (21-32) Anion Gap 6 mmol/L (5-15) Blood Urea Nitrogen 5 mg/dL (7-18) L Creatinine 0.7 MG/DL (0.55-1.30) Estimat Glomerular Filtration Rate > 60 mL/min (>60) Glucose Level 105 MG/DL (74-106) Calcium Level 7.6 MG/DL (8.5-10.1) L Phosphorus Level 3.4 MG/DL (2.5-4.9) Magnesium Level 1.4 MG/DL (1.8-2.4) L Total Bilirubin 0.4 MG/DL (0.2-1.0) Aspartate Amino Transf (AST/SGOT) 22 U/L (15-37) Alanine Aminotransferase (ALT/SGPT) 17 U/L (12-78) Alkaline Phosphatase 131 U/L (46-116) H Total Protein 5.1 G/DL (6.4-8.2) L Albumin 1.4 G/DL (3.4-5.0) L Globulin 3.7 g/dL Albumin/Globulin Ratio 0.4 (1.0-2.7) L Microbiology Date/Time Source Procedure Growth Status 07/14/17 22:40 Urine,Clean Catch Urine Culture - Preliminary NO GROWTH Resulted KAREN MARIA Jul 15, 2017 16:01
--- NOTE | 2017-07-15 16:25 | Cardiology Report ---
APPROVED REPORT EKG Measurement Heart [id number] Normal sinus rhythm Abnormal ECG
[2017-07-15] MEDS: Ertapenem 1 GM in NS 55 ML IVPB SCH (17:51)
[2017-07-15 20:00] VITALS: BP 122/71
[2017-07-15] MEDS: Cefepime HCl 2 GM in NS 55 ML IVPB SCH (21:19)
[2017-07-15] MEDS ORDERED: HYDROmorphone 1mg/ml Carpuject IVP PRN (22:15)
[2017-07-16] VITALS: BP 123/64
[2017-07-16] MEDS: D5NS 1,000 ML IV SCH (00:37)
[2017-07-16 04:00] VITALS: BP 119/69
[2017-07-16 07:38] LABS: HEMATOCRIT 32.4 % (42.0-52.0); HEMOGLOBIN 10.9 G/DL (14.2-18.0); MEAN CORPUSCULAR VOLUME 91 FL (80-99); PLATELET COUNT 292 K/UL (150-450); RED BLOOD COUNT 3.55 M/UL (4.70-6.10); RED CELL DISTRIBUTION WIDTH 12.3 % (11.6-14.8); WHITE BLOOD COUNT 10.5 K/UL (4.8-10.8)
[2017-07-16 08:00] VITALS: BP 117/75
[2017-07-16 08:04] LABS: ALANINE AMINOTRANSFERASE 13 U/L (12-78); ALBUMIN 1.4 G/DL (3.4-5.0); ALBUMIN/GLOBULIN RATIO 0.4 (1.0-2.7); ALKALINE PHOSPHATASE 115 U/L (46-116); ANION GAP 5 mmol/L (5-15); ASPARTATE AMINO TRANSFERASE 22 U/L (15-37); BILIRUBIN,TOTAL 0.4 MG/DL (0.2-1.0); BLOOD UREA NITROGEN 5 mg/dL (7-18); CALCIUM 7.7 MG/DL (8.5-10.1); CARBON DIOXIDE 30 MMOL/L (21-32); CHLORIDE 102 MMOL/L (98-107); CREATININE 0.6 MG/DL (0.55-1.30); POTASSIUM 3.6 MMOL/L (3.5-5.1); SODIUM 137 MMOL/L (136-145)
[2017-07-16] MEDS: Heparin 5000 units/ml inj SUBQ SCH ×2 (08:17→20:43)
--- NOTE | 2017-07-16 10:32 | Diagnostic Imaging Report ---
Indication: Reason For Exam: ABD PAIN Technique: Grayscale and duplex images of the right upper quadrant Comparison: Reference made to Findings: The abdominal aorta and the pancreas could not be visualized, due to open wound bandages around the lower portions of the stomach. Unremarkable inferior vena cava. The liver demonstrates normal echogenicity, no focal abnormality. There is a right-sided pleural effusion. The portal and hepatic veins are patent. The gallbladder and demonstrates no evidence of calculi. Wall is borderline thickened an edematous, measuring 3 mm in thickness. Common bile duct measures 4 mm in diameter. The right kidney measures 11.3 cm in length. It demonstrates normal echogenicity, no hydronephrosis nor focal abnormality Impression: Negative for gallstones. There is borderline gallbladder wall thickening, however. Most likely, this is reactive secondary to surrounding inflammation related to recent bowel perforation and surgery for such. However, the possibility of acalculous acute cholecystitis should be considered, and consideration for nuclear medicine hepatobiliary scanning if there is high clinical suspicion Limited exam, nonvisualized abdominal aorta and pancreas Negative for biliary ductal dilatation
--- NOTE | 2017-07-16 10:42 | GI Progress Note ---
Assessment/Plan Problems: (1) Psychiatric disorder ICD Codes: F99 - Mental disorder, not otherwise specified SNOMED: 85184419, 806703335 (2) Amphetamine abuse ICD Codes: F15.10 - Other stimulant abuse, uncomplicated SNOMED: 43701441 (3) Opiate dependence ICD Codes: F11.20 - Opioid dependence, uncomplicated SNOMED: 12797634 Qualifiers: Qualified Codes: F11.20 - Opioid dependence, uncomplicated (4) Perforated abdominal viscus SNOMED: 471138493 Status: progressing Status Narrative Discussed with Dr. Castro. Assessment/Plan s/p Exploratory laparotomy, partial bowel resection fu surgical recs IVFs CLD, adv per surgery colostomy care prn transfusions serial imaging prn fu labs Subjective Subjective limited, awake Objective Last 24 Hour Vital Signs Date Time Temp Pulse Resp B/P (MAP) Pulse Ox O2 Delivery O2 Flow Rate FiO2 07/16/17 08:14 98 Room Air 2.0 28 07/16/17 08:14 99 20 Room Air 2.0 28 07/16/17 08:14 Nasal Cannula 2.0 28 07/16/17 08:00 98.9 114 18 117/75 95 Nasal Cannula 2.0 98.9 07/16/17 07:30 90 Room Air 07/16/17 04:00 97.7 98 21 119/69 96 97.7 07/16/17 04:00 Nasal Cannula 2.0 07/16/17 00:00 97.9 109 20 123/64 95 97.9 07/16/17 00:00 Nasal Cannula 2.0 07/15/17 20:49 Nasal Cannula 2.0 28 07/15/17 20:48 97 Room Air 2.0 28 07/15/17 20:48 112 20 Room Air 2.0 28 07/15/17 20:00 Nasal Cannula 2.0 07/15/17 20:00 98.2 112 20 122/71 97 98.2 07/15/17 18:30 98.8 07/15/17 18:00 98.8 07/15/17 16:00 98.8 110 21 108/75 96 Room Air 98.8 07/15/17 15:07 97.0 07/15/17 12:05 97.0 113 21 107/57 91 Room Air 97.0 Intake and Output 07/15/17 07/16/17 19:00 07:00 Intake Total 350 ml 850 ml Output Total 2468 ml 1390 ml Balance -2118 ml -540 ml Intake Oral 300 ml 240 ml IV Total 50 ml 610 ml Output Urine Total 1350 ml 950 ml Stool Total 80 ml 30 ml Gastric Drainage Total 0 ml Drainage Total 438 ml 410 ml Estimated Blood Loss 600 ml # Voids 1 # Bowel Movements 1 Laboratory Tests Test 07/16/17 06:45 White Blood Count 10.5 K/UL (4.8-10.8) Red Blood Count 3.55 M/UL (4.70-6.10) L Hemoglobin 10.9 G/DL (14.2-18.0) L Hematocrit 32.4 % (42.0-52.0) L Mean Corpuscular Volume 91 FL (80-99) Mean Corpuscular Hemoglobin 30.8 PG (27.0-31.0) Mean Corpuscular Hemoglobin Concent 33.8 G/DL (32.0-36.0) Red Cell Distribution Width 12.3 % (11.6-14.8) Platelet Count 292 K/UL (150-450) Mean Platelet Volume 5.4 FL (6.5-10.1) L Neutrophils (%) (Auto) % (45.0-75.0) Lymphocytes (%) (Auto) % (20.0-45.0) Monocytes (%) (Auto) % (1.0-10.0) Eosinophils (%) (Auto) % (0.0-3.0) Basophils (%) (Auto) % (0.0-2.0) Differential Total Cells Counted 100 Neutrophils % (Manual) 88 % (45-75) H Lymphocytes % (Manual) 8 % (20-45) L Monocytes % (Manual) 4 % (1-10) Eosinophils % (Manual) 0 % (0-3) Basophils % (Manual) 0 % (0-2) Band Neutrophils 0 % (0-8) Platelet Estimate Adequate Platelet Morphology Normal Hypochromasia 1+ Sodium Level 137 MMOL/L (136-145) Potassium Level 3.6 MMOL/L (3.5-5.1) Chloride Level 102 MMOL/L (98-107) Carbon Dioxide Level 30 MMOL/L (21-32) Anion Gap 5 mmol/L (5-15) Blood Urea Nitrogen 5 mg/dL (7-18) L Creatinine 0.6 MG/DL (0.55-1.30) Estimat Glomerular Filtration Rate > 60 mL/min (>60) Glucose Level 113 MG/DL (74-106) H Calcium Level 7.7 MG/DL (8.5-10.1) L Total Bilirubin 0.4 MG/DL (0.2-1.0) Aspartate Amino Transf (AST/SGOT) 22 U/L (15-37) Alanine Aminotransferase (ALT/SGPT) 13 U/L (12-78) Alkaline Phosphatase 115 U/L (46-116) Total Protein 5.3 G/DL (6.4-8.2) L Albumin 1.4 G/DL (3.4-5.0) L Globulin 3.9 g/dL Albumin/Globulin Ratio 0.4 (1.0-2.7) L Height (Feet): 5 Height (Inches): 9.00 Weight (Pounds): 136 General Appearance: WD/WN, no apparent distress, alert, thin Cardiovascular: normal rate Respiratory/Chest: normal breath sounds, no respiratory distress Abdominal Exam: normal bowel sounds, non tender, soft, other - colostomy Extremities: non-tender Samia Albarran N.P. Jul 16, 2017 10:42
--- NOTE | 2017-07-16 10:52 | Nephrology Progress Note ---
Assessment/Plan Problem List: (1) ARF (acute renal failure) (2) UTI (urinary tract infection) (3) Psychiatric disorder (4) Acute abdomen Assessment Status: WBCs wnl acute renal failure- extended left colectomy due to perf transverse colostomy creation Plan Plan: DC horan DC IV PT mag supplement as needed on clear liquid Post op ( OP 07/08/17) Horan- 2D echo normal Ej Fx Albumin bollous monitor renal parameters K and Phos and Mag supplement as needed Subjective ROS Limited/Unobtainable: No Constitutional: Reports: malaise Objective Objective Last 24 Hour Vital Signs Date Time Temp Pulse Resp B/P (MAP) Pulse Ox O2 Delivery O2 Flow Rate FiO2 07/16/17 08:14 98 Room Air 2.0 28 07/16/17 08:14 99 20 Room Air 2.0 28 07/16/17 08:14 Nasal Cannula 2.0 28 07/16/17 08:00 98.9 114 18 117/75 95 Nasal Cannula 2.0 98.9 07/16/17 07:30 90 Room Air 07/16/17 04:00 97.7 98 21 119/69 96 97.7 07/16/17 04:00 Nasal Cannula 2.0 07/16/17 00:00 97.9 109 20 123/64 95 97.9 07/16/17 00:00 Nasal Cannula 2.0 07/15/17 20:49 Nasal Cannula 2.0 28 07/15/17 20:48 97 Room Air 2.0 28 07/15/17 20:48 112 20 Room Air 2.0 28 07/15/17 20:00 Nasal Cannula 2.0 07/15/17 20:00 98.2 112 20 122/71 97 98.2 07/15/17 18:30 98.8 07/15/17 18:00 98.8 07/15/17 16:00 98.8 110 21 108/75 96 Room Air 98.8 07/15/17 15:07 97.0 07/15/17 12:05 97.0 113 21 107/57 91 Room Air 97.0 Intake and Output 07/15/17 07/16/17 19:00 07:00 Intake Total 350 ml 850 ml Output Total 2468 ml 1390 ml Balance -2118 ml -540 ml Intake Oral 300 ml 240 ml IV Total 50 ml 610 ml Output Urine Total 1350 ml 950 ml Stool Total 80 ml 30 ml Gastric Drainage Total 0 ml Drainage Total 438 ml 410 ml Estimated Blood Loss 600 ml # Voids 1 # Bowel Movements 1 Laboratory Tests 07/16/17 06:45: White Blood Count 10.5, Red Blood Count 3.55L, Hemoglobin 10.9L, Hematocrit 32.4L, Mean Corpuscular Volume 91, Mean Corpuscular Hemoglobin 30.8, Mean Corpuscular Hemoglobin Concent 33.8, Red Cell Distribution Width 12.3, Platelet Count 292, Mean Platelet Volume 5.4L, Neutrophils (%) (Auto) , Lymphocytes (%) ( Auto) , Monocytes (%) (Auto) , Eosinophils (%) (Auto) , Basophils (%) (Auto) , Differential Total Cells Counted 100, Neutrophils % (Manual) 88H, Lymphocytes % (Manual) 8L, Monocytes % (Manual) 4, Eosinophils % (Manual) 0, Basophils % ( Manual) 0, Band Neutrophils 0, Platelet Estimate Adequate, Platelet Morphology Normal, Hypochromasia 1+, Sodium Level 137, Potassium Level 3.6, Chloride Level 102, Carbon Dioxide Level 30, Anion Gap 5, Blood Urea Nitrogen 5L, Creatinine 0.6, Estimat Glomerular Filtration Rate > 60, Glucose Level 113H, Calcium Level 7.7L, Total Bilirubin 0.4, Aspartate Amino Transf (AST/SGOT) 22, Alanine Aminotransferase (ALT/SGPT) 13, Alkaline Phosphatase 115, Total Protein 5.3L, Albumin 1.4L, Globulin 3.9, Albumin/Globulin Ratio 0.4L Height (Feet): 5 Height (Inches): 9.00 Weight (Pounds): 136 General Appearance: no apparent distress Cardiovascular: tachycardia Abdomen: distended Objective no other change NOEMY MARK Jul 16, 2017 10:51
[2017-07-16 12:00] VITALS: BP 106/71
--- NOTE | 2017-07-16 12:24 | General Progress Note ---
Progress Note Progress Note Surgery: doing well. still asks for morphine all day long. no n/v/f/c. afebrile, HD stable, labs improved. upper drain with murky output lower drain with serous output midline wound with stable dehiscence. ostomy pink and viable. -diet as tolerated -d/c horan -drain care -dressings TIGilberto Mas Jul 16, 2017 12:24
--- NOTE | 2017-07-16 14:50 | Infectious Diseases Prog Note ---
Assessment/Plan Assessment/Plan ASSESSMENT: The patient is a 46-year-old male with; Bowel perf Abscess Cx: E coli( ESBL) and ENTEROCOCCUS AVIUM and Bact Fragilis s/p ex lap with left colectomy and transverse colostomy for perforated left colon, evacuation of intrabd abscess, abd washout w/ drain placement 07/09 CT : Evidence of perforation of hollow viscus with extensive amount of free air in the upper abdomen and some free fluid is well. Elevated ALP -Abd US: Negative for gallstones. There is borderline gallbladder wall thickening, however. Most likely, this is reactive secondary to surrounding inflammation related to recent bowel perforation and surgery for such. However, the possibility of acalculous acute cholecystitis should be considered, and consideration for nuclear medicine hepatobiliary scanning if there is high clinical suspicion Fever, improving Leukocytosis, resolved history of diarrhea, SP RAMSEY: Improved HTN COPD/asthma. Smoker. History of chronic constipation. Osteoarthritis. ? CAD/TN, hx PLAN: Cont pt on IV Invanz d# 6 / 7 , d/c Cefepime #2 and add PO amoxicillin for enterococal coverage --07/12 SP Zosyn d# 6 --SP Rocephin d# 5 monitor chest x-ray. Nephrology, following Monitor ( Ur, Blood ) Cx Cxray Surg f/u Subjective Allergies: Coded Allergies: No Known Allergies (Unverified , 01/20/17) Subjective afebrile in >36hrs leukcotysosi resolved bcx neg Objective Vital Signs Last 24 Hour Vital Signs Date Time Temp Pulse Resp B/P (MAP) Pulse Ox O2 Delivery O2 Flow Rate FiO2 07/16/17 12:00 97.5 120 20 106/71 97.5 07/16/17 08:14 98 Room Air 2.0 28 07/16/17 08:14 99 20 Room Air 2.0 28 07/16/17 08:14 Nasal Cannula 2.0 28 07/16/17 08:00 98.9 114 18 117/75 95 Nasal Cannula 2.0 98.9 07/16/17 07:30 90 Room Air 07/16/17 04:00 97.7 98 21 119/69 96 97.7 07/16/17 04:00 Nasal Cannula 2.0 07/16/17 00:00 97.9 109 20 123/64 95 97.9 07/16/17 00:00 Nasal Cannula 2.0 07/15/17 20:49 Nasal Cannula 2.0 28 07/15/17 20:48 97 Room Air 2.0 28 07/15/17 20:48 112 20 Room Air 2.0 28 07/15/17 20:00 Nasal Cannula 2.0 07/15/17 20:00 98.2 112 20 122/71 97 98.2 07/15/17 18:30 98.8 07/15/17 18:00 98.8 07/15/17 16:00 98.8 110 21 108/75 96 Room Air 98.8 07/15/17 15:07 97.0 Height (Feet): 5 Height (Inches): 9.00 Weight (Pounds): 136 Objective General Appearance: WD/WN, no apparent distress, alert, thin Cardiovascular: normal rate Respiratory/Chest: normal breath sounds, no respiratory distress Abdominal Exam: normal bowel sounds, non tender, soft, other - colostomy Extremities: non-tender Microbiology Date/Time Source Procedure Growth Status 07/14/17 22:40 Urine,Clean Catch Urine Culture - Preliminary NO GROWTH AFTER 24 HOURS Resulted Laboratory Tests Test 07/16/17 06:45 White Blood Count 10.5 K/UL (4.8-10.8) Red Blood Count 3.55 M/UL (4.70-6.10) L Hemoglobin 10.9 G/DL (14.2-18.0) L Hematocrit 32.4 % (42.0-52.0) L Mean Corpuscular Volume 91 FL (80-99) Mean Corpuscular Hemoglobin 30.8 PG (27.0-31.0) Mean Corpuscular Hemoglobin Concent 33.8 G/DL (32.0-36.0) Red Cell Distribution Width 12.3 % (11.6-14.8) Platelet Count 292 K/UL (150-450) Mean Platelet Volume 5.4 FL (6.5-10.1) L Neutrophils (%) (Auto) % (45.0-75.0) Lymphocytes (%) (Auto) % (20.0-45.0) Monocytes (%) (Auto) % (1.0-10.0) Eosinophils (%) (Auto) % (0.0-3.0) Basophils (%) (Auto) % (0.0-2.0) Differential Total Cells Counted 100 Neutrophils % (Manual) 88 % (45-75) H Lymphocytes % (Manual) 8 % (20-45) L Monocytes % (Manual) 4 % (1-10) Eosinophils % (Manual) 0 % (0-3) Basophils % (Manual) 0 % (0-2) Band Neutrophils 0 % (0-8) Platelet Estimate Adequate Platelet Morphology Normal Hypochromasia 1+ Sodium Level 137 MMOL/L (136-145) Potassium Level 3.6 MMOL/L (3.5-5.1) Chloride Level 102 MMOL/L (98-107) Carbon Dioxide Level 30 MMOL/L (21-32) Anion Gap 5 mmol/L (5-15) Blood Urea Nitrogen 5 mg/dL (7-18) L Creatinine 0.6 MG/DL (0.55-1.30) Estimat Glomerular Filtration Rate > 60 mL/min (>60) Glucose Level 113 MG/DL (74-106) H Calcium Level 7.7 MG/DL (8.5-10.1) L Total Bilirubin 0.4 MG/DL (0.2-1.0) Aspartate Amino Transf (AST/SGOT) 22 U/L (15-37) Alanine Aminotransferase (ALT/SGPT) 13 U/L (12-78) Alkaline Phosphatase 115 U/L (46-116) Total Protein 5.3 G/DL (6.4-8.2) L Albumin 1.4 G/DL (3.4-5.0) L Globulin 3.9 g/dL Albumin/Globulin Ratio 0.4 (1.0-2.7) L Current Medications Medications (Trade) Dose Ordered Sig/Kayy Route PRN Reason Start Time Stop Time Status Last Admin Dose Admin Acetaminophen (Tylenol) 650 mg Q6H PRN ORAL Mild Pain/Temp > 100.5 07/14/17 19:00 08/13/17 18:59 Albuterol Sulfate (Proventil) 2.5 mg Q12H PRN HHN Shortness of Breath Discomfort 07/11/17 20:30 07/16/17 20:29 07/15/17 09:30 Cefepime HCl 2 gm/ Sodium Chloride 55 ml @ 110 mls/hr Q24H IVPB 07/14/17 22:00 07/21/17 21:59 07/15/17 21:19 Dextrose (Dextrose 50%) STAT PRN IV Hypoglycemia 07/11/17 20:30 08/10/17 20:29 Ertapenem 1 gm/ Sodium Chloride 55 ml @ 110 mls/hr Q24H IVPB 07/12/17 17:00 07/18/17 23:59 07/15/17 17:51 Finasteride (Proscar) 5 mg DAILY ORAL 07/13/17 09:00 08/12/17 08:59 07/16/17 08:15 Heparin Sodium (Porcine) (Heparin 5000 units/ml) 5,000 units EVERY 12 HOURS SUBQ 07/11/17 21:00 08/02/17 08:59 07/16/17 08:17 Hydromorphone HCl (Dilaudid) 2 mg Q3H PRN IVP Severe Pain (Pain Scale 7-10) 07/15/17 22:15 07/22/17 22:14 07/16/17 08:16 Ibuprofen (Motrin) 600 mg Q6H PRN ORAL Moderate Pain (Pain Scale 4-6) 07/16/17 12:30 08/15/17 12:29 Lansoprazole (Prevacid) 30 mg DAILY ORAL 07/12/17 09:00 08/11/17 08:59 07/16/17 09:00 Lorazepam (Ativan 2mg/ml 1ml) 1 mg Q4H PRN IV For Anxiety 07/15/17 22:15 07/22/17 22:14 Nitroglycerin (Ntg) 0.4 mg Q5MIN X 3 DOSES PRN SL Prn Chest Pain 07/11/17 20:32 08/09/17 20:31 Ondansetron HCl (Zofran) 4 mg Q6H PRN IVP Nausea & Vomiting 07/11/17 20:32 08/10/17 20:31 Potassium Chloride (K-Dur) 20 meq DAILY ORAL 07/17/17 09:00 08/16/17 08:59 Risperidone (RisperDAL) 3 mg BEDTIME ORAL 07/12/17 21:00 08/11/17 20:59 07/15/17 21:14 Chhaya Menendez M.D. Jul 16, 2017 14:50
[2017-07-16 16:00] VITALS: BP 125/85
[2017-07-16] MEDS: Ertapenem 1 GM in NS 55 ML IVPB SCH (16:30)
--- NOTE | 2017-07-16 17:29 | Pulmonology Progress Note ---
Assessment/Plan Problems: (1) Perforated abdominal viscus (2) ARF (acute renal failure) (3) Psychosis (4) Acute constipation (5) Amphetamine abuse Assessment/Plan d/w surgeon, surgical sutures are not healing well iv fluids pain management med/surg check electrolytes Subjective ROS Limited/Unobtainable: No Allergies: Coded Allergies: No Known Allergies (Unverified , 01/20/17) Objective Last 24 Hour Vital Signs Date Time Temp Pulse Resp B/P (MAP) Pulse Ox O2 Delivery O2 Flow Rate FiO2 07/16/17 16:28 97.5 07/16/17 16:00 97.7 120 18 125/85 97 97.7 07/16/17 15:21 97.5 07/16/17 12:00 97.5 120 20 106/71 97.5 07/16/17 08:14 98 Room Air 2.0 28 07/16/17 08:14 99 20 Room Air 2.0 28 07/16/17 08:14 Nasal Cannula 2.0 28 07/16/17 08:00 98.9 114 18 117/75 95 Nasal Cannula 2.0 98.9 07/16/17 07:30 90 Room Air 07/16/17 04:00 97.7 98 21 119/69 96 97.7 07/16/17 04:00 Nasal Cannula 2.0 07/16/17 00:00 97.9 109 20 123/64 95 97.9 07/16/17 00:00 Nasal Cannula 2.0 07/15/17 20:49 Nasal Cannula 2.0 28 07/15/17 20:48 97 Room Air 2.0 28 07/15/17 20:48 112 20 Room Air 2.0 28 07/15/17 20:00 Nasal Cannula 2.0 07/15/17 20:00 98.2 112 20 122/71 97 98.2 07/15/17 18:30 98.8 07/15/17 18:00 98.8 Intake and Output 07/15/17 07/16/17 19:00 07:00 Intake Total 350 ml 850 ml Output Total 2468 ml 1390 ml Balance -2118 ml -540 ml Intake Oral 300 ml 240 ml IV Total 50 ml 610 ml Output Urine Total 1350 ml 950 ml Stool Total 80 ml 30 ml Gastric Drainage Total 0 ml Drainage Total 438 ml 410 ml Estimated Blood Loss 600 ml # Voids 1 # Bowel Movements 1 Objective General Appearance: WD/WN Lines, tubes and drains: peripheral HEENT: normocephalic, atraumatic Neck: non-tender, normal alignment Respiratory/Chest: chest wall non-tender, lungs clear Breasts: no masses Cardiovascular/Chest: normal peripheral pulses, normal rate Abdomen: normal bowel sounds, clean dressing Genitourinary/Rectal: normal genital exam, heme negative stool Extremities: normal range of motion, non-tender Skin Exam: normal pigmentation Microbiology Date/Time Source Procedure Growth Status 07/14/17 22:40 Urine,Clean Catch Urine Culture - Preliminary NO GROWTH AFTER 24 HOURS Resulted Laboratory Tests 07/16/17 06:45: White Blood Count 10.5, Red Blood Count 3.55L, Hemoglobin 10.9L, Hematocrit 32.4L, Mean Corpuscular Volume 91, Mean Corpuscular Hemoglobin 30.8, Mean Corpuscular Hemoglobin Concent 33.8, Red Cell Distribution Width 12.3, Platelet Count 292, Mean Platelet Volume 5.4L, Neutrophils (%) (Auto) , Lymphocytes (%) ( Auto) , Monocytes (%) (Auto) , Eosinophils (%) (Auto) , Basophils (%) (Auto) , Differential Total Cells Counted 100, Neutrophils % (Manual) 88H, Lymphocytes % (Manual) 8L, Monocytes % (Manual) 4, Eosinophils % (Manual) 0, Basophils % ( Manual) 0, Band Neutrophils 0, Platelet Estimate Adequate, Platelet Morphology Normal, Hypochromasia 1+, Sodium Level 137, Potassium Level 3.6, Chloride Level 102, Carbon Dioxide Level 30, Anion Gap 5, Blood Urea Nitrogen 5L, Creatinine 0.6, Estimat Glomerular Filtration Rate > 60, Glucose Level 113H, Calcium Level 7.7L, Total Bilirubin 0.4, Aspartate Amino Transf (AST/SGOT) 22, Alanine Aminotransferase (ALT/SGPT) 13, Alkaline Phosphatase 115, Total Protein 5.3L, Albumin 1.4L, Globulin 3.9, Albumin/Globulin Ratio 0.4L Current Medications Medications (Trade) Dose Ordered Sig/Kayy Route PRN Reason Start Time Stop Time Status Last Admin Dose Admin Acetaminophen (Tylenol) 650 mg Q6H PRN ORAL Mild Pain/Temp > 100.5 07/14/17 19:00 08/13/17 18:59 Albuterol Sulfate (Proventil) 2.5 mg Q12H PRN HHN Shortness of Breath Discomfort 07/11/17 20:30 07/16/17 20:29 07/15/17 09:30 Amoxicillin (Amoxil) 500 mg EVERY 8 HOURS ORAL 07/16/17 15:00 07/23/17 14:59 07/16/17 16:41 Dextrose (Dextrose 50%) STAT PRN IV Hypoglycemia 07/11/17 20:30 08/10/17 20:29 Ertapenem 1 gm/ Sodium Chloride 55 ml @ 110 mls/hr Q24H IVPB 07/12/17 17:00 07/18/17 23:59 07/16/17 16:30 Finasteride (Proscar) 5 mg DAILY ORAL 07/13/17 09:00 08/12/17 08:59 07/16/17 08:15 Heparin Sodium (Porcine) (Heparin 5000 units/ml) 5,000 units EVERY 12 HOURS SUBQ 07/11/17 21:00 08/02/17 08:59 07/16/17 08:17 Hydromorphone HCl (Dilaudid) 2 mg Q3H PRN IVP Severe Pain (Pain Scale 7-10) 07/15/17 22:15 07/22/17 22:14 07/16/17 08:16 Ibuprofen (Motrin) 600 mg Q6H PRN ORAL Moderate Pain (Pain Scale 4-6) 07/16/17 12:30 08/15/17 12:29 07/16/17 15:21 Lansoprazole (Prevacid) 30 mg DAILY ORAL 07/12/17 09:00 08/11/17 08:59 07/16/17 09:00 Lorazepam (Ativan 2mg/ml 1ml) 1 mg Q4H PRN IV For Anxiety 07/15/17 22:15 07/22/17 22:14 Nitroglycerin (Ntg) 0.4 mg Q5MIN X 3 DOSES PRN SL Prn Chest Pain 07/11/17 20:32 08/09/17 20:31 Ondansetron HCl (Zofran) 4 mg Q6H PRN IVP Nausea & Vomiting 07/11/17 20:32 08/10/17 20:31 Potassium Chloride (K-Dur) 20 meq DAILY ORAL 07/17/17 09:00 08/16/17 08:59 Risperidone (RisperDAL) 3 mg BEDTIME ORAL 07/12/17 21:00 08/11/17 20:59 07/15/17 21:14 YVUAL HATCH Jul 16, 2017 17:29
[2017-07-16 20:00] VITALS: BP 115/72
--- NOTE | 2017-07-16 23:25 | General Progress Note ---
Assessment/Plan Status: stable Assessment/Plan Schizophrenia CPT Encephalopathy PLAN: - increase the risperidone to 3 mg at bedtime. Subjective Date patient seen: Jul 16, 2017 Neurologic/Psychiatric: Reports: anxiety, depressed Allergies: Coded Allergies: No Known Allergies (Unverified , 01/20/17) Subjective the pt still confused and less agitated. the pt is disorganized and delusional Objective Last 24 Hour Vital Signs Date Time Temp Pulse Resp B/P (MAP) Pulse Ox O2 Delivery O2 Flow Rate FiO2 07/16/17 20:00 97.7 104 20 115/72 94 97.7 07/16/17 18:48 97 Room Air 2.0 28 07/16/17 18:48 96 20 Room Air 2.0 28 07/16/17 18:48 Nasal Cannula 2.0 28 07/16/17 16:28 97.5 07/16/17 16:00 97.7 120 18 125/85 97 97.7 07/16/17 15:21 97.5 07/16/17 12:00 97.5 120 20 106/71 97.5 07/16/17 08:14 98 Room Air 2.0 28 07/16/17 08:14 99 20 Room Air 2.0 28 07/16/17 08:14 Nasal Cannula 2.0 28 07/16/17 08:00 98.9 114 18 117/75 95 Nasal Cannula 2.0 98.9 07/16/17 07:30 90 Room Air 07/16/17 04:00 97.7 98 21 119/69 96 97.7 07/16/17 04:00 Nasal Cannula 2.0 07/16/17 00:00 97.9 109 20 123/64 95 97.9 07/16/17 00:00 Nasal Cannula 2.0 Intake and Output 07/15/17 07/16/17 19:00 07:00 Intake Total 350 ml 850 ml Output Total 2468 ml 1390 ml Balance -2118 ml -540 ml Intake Oral 300 ml 240 ml IV Total 50 ml 610 ml Output Urine Total 1350 ml 950 ml Stool Total 80 ml 30 ml Gastric Drainage Total 0 ml Drainage Total 438 ml 410 ml Estimated Blood Loss 600 ml # Voids 1 # Bowel Movements 1 Laboratory Tests 07/16/17 06:45: White Blood Count 10.5, Red Blood Count 3.55L, Hemoglobin 10.9L, Hematocrit 32.4L, Mean Corpuscular Volume 91, Mean Corpuscular Hemoglobin 30.8, Mean Corpuscular Hemoglobin Concent 33.8, Red Cell Distribution Width 12.3, Platelet Count 292, Mean Platelet Volume 5.4L, Neutrophils (%) (Auto) , Lymphocytes (%) ( Auto) , Monocytes (%) (Auto) , Eosinophils (%) (Auto) , Basophils (%) (Auto) , Differential Total Cells Counted 100, Neutrophils % (Manual) 88H, Lymphocytes % (Manual) 8L, Monocytes % (Manual) 4, Eosinophils % (Manual) 0, Basophils % ( Manual) 0, Band Neutrophils 0, Platelet Estimate Adequate, Platelet Morphology Normal, Hypochromasia 1+, Sodium Level 137, Potassium Level 3.6, Chloride Level 102, Carbon Dioxide Level 30, Anion Gap 5, Blood Urea Nitrogen 5L, Creatinine 0.6, Estimat Glomerular Filtration Rate > 60, Glucose Level 113H, Calcium Level 7.7L, Total Bilirubin 0.4, Aspartate Amino Transf (AST/SGOT) 22, Alanine Aminotransferase (ALT/SGPT) 13, Alkaline Phosphatase 115, Total Protein 5.3L, Albumin 1.4L, Globulin 3.9, Albumin/Globulin Ratio 0.4L Height (Feet): 5 Height (Inches): 9.00 Weight (Pounds): 136 General Appearance: no apparent distress, alert, confused Idalia Montanez M.D. Jul 16, 2017 23:25
[2017-07-17] VITALS (8 sets, daily range): BP systolic 87–125; BP diastolic 57–76
[2017-07-17 08:41] LABS: HEMATOCRIT 34.1 % (42.0-52.0); HEMOGLOBIN 11.8 G/DL (14.2-18.0); MEAN CORPUSCULAR VOLUME 91 FL (80-99); PLATELET COUNT 364 K/UL (150-450); RED BLOOD COUNT 3.73 M/UL (4.70-6.10); RED CELL DISTRIBUTION WIDTH 12.1 % (11.6-14.8); WHITE BLOOD COUNT 11.3 K/UL (4.8-10.8)
[2017-07-17 08:45] LABS: ANION GAP 3 mmol/L (5-15); BLOOD UREA NITROGEN 7 mg/dL (7-18); CARBON DIOXIDE 33 MMOL/L (21-32); CHLORIDE 101 MMOL/L (98-107); CREATININE 0.7 MG/DL (0.55-1.30); POTASSIUM 3.4 MMOL/L (3.5-5.1); SODIUM 137 MMOL/L (136-145)
[2017-07-17] MEDS: Heparin 5000 units/ml inj SUBQ SCH ×2 (09:23→21:32)
--- NOTE | 2017-07-17 12:15 | General Progress Note ---
Progress Note Progress Note Surgery: doing well. no acute events. afebrile. leukocytosis elevated to 11k today. ostomy pink and viable with gas and liquid in bag. upper drain which is positioned in area of prior left subcostal abscess still with murky fluid. lower pelvic drain serous. midline stable. -CT A/P with IV and Oral contrast to evaluate. possible reaccumulating left subcostal abscess or prior debris is clearing out. need to evaluate. -Cont Abx -will follow with recs. Gilberto Michelle Jul 17, 2017 12:15
[2017-07-17 12:47] LABS: ALANINE AMINOTRANSFERASE 16 U/L (12-78); ALBUMIN 1.5 G/DL (3.4-5.0); ALKALINE PHOSPHATASE 115 U/L (46-116); ASPARTATE AMINO TRANSFERASE 26 U/L (15-37); BILIRUBIN,DIRECT < 0.1 MG/DL (0.0-0.3); BILIRUBIN,TOTAL 0.3 MG/DL (0.2-1.0); PHOSPHORUS 3.4 MG/DL (2.5-4.9)
--- NOTE | 2017-07-17 14:32 | Infectious Diseases Prog Note ---
Assessment/Plan Assessment/Plan ASSESSMENT: The patient is a 46-year-old male with; Bowel perf w/ developement of 2 Abscess (subphrenic and pelvic) Cx: E coli( ESBL) and ENTEROCOCCUS AVIUM and Bact Fragilis s/p ex lap with left colectomy and transverse colostomy for perforated left colon, evacuation of intrabd abscess, abd washout w/ drain placement 07/09 -OR findings: The omentum was significantly thickened and adhesed to the small bowel and into the left lower quadrant. There was significant inflammatory process throughout the abdomen including a thickening of almost the entire peritoneal lining. The proximal portion of the jejunum was significantly thickened and had a rind of inflammatory infectious tissue on it. left transverse and descending colon, there was significant amount of thickening and significant disease process with some areas of mild ischemia noted and in the descending colon around the descending and sigmoid junction, there was a gross perforation with grossspillage of bowel contents noted in the area. there was a fluid collection/pelvic abscess, which was evacuated. There was a fluid collection in the right upper quadrant around the liver, which was evacuated and a large left upper quadrant subphrenic abscess with significant tissue rind and thickening around the stomach, spleen, peritoneum, and diaphragm in that location. CT : Evidence of perforation of hollow viscus with extensive amount of free air in the upper abdomen and some free fluid is well. Elevated ALP -Abd US: Negative for gallstones. There is borderline gallbladder wall thickening, however. Most likely, this is reactive secondary to surrounding inflammation related to recent bowel perforation and surgery for such. However, the possibility of acalculous acute cholecystitis should be considered, and consideration for nuclear medicine hepatobiliary scanning if there is high clinical suspicion Fever/Leukocytosis, recurrent- r/o persistent/residual or worsenign abscess history of diarrhea, SP RAMSEY: Improved HTN COPD/asthma. Smoker. History of chronic constipation. Osteoarthritis. ? CAD/NH, hx PLAN: Cont pt on IV Invanz d# 7 and PO amoxicillin #2 for enterococal coverage; duration will be guided pending repeat CT abd/p --07/16 SP Cefepime #2 --07/12 SP Zosyn d# 6 --SP Rocephin d# 5 f/u CT abd/p monitor chest x-ray. Nephrology, following Monitor ( Blood ) Cx Surg f/u Discussed with Dr Michelle Subjective Allergies: Coded Allergies: No Known Allergies (Unverified , 01/20/17) Subjective Tm 100.3 WBC 11 still murkly fluid drainage from Subcostal drain Bcx NTD Objective Vital Signs Last 24 Hour Vital Signs Date Time Temp Pulse Resp B/P (MAP) Pulse Ox O2 Delivery O2 Flow Rate FiO2 07/17/17 12:00 98.9 102 20 87/57 98.9 07/17/17 10:51 100.2 07/17/17 09:20 100.2 07/17/17 08:54 100.2 126 20 114/73 93 100.2 07/17/17 04:00 98.5 96 18 125/76 99 98.5 07/17/17 00:00 96.3 100 18 123/75 99 96.3 07/16/17 20:00 97.7 104 20 115/72 94 97.7 07/16/17 18:48 97 Room Air 2.0 28 07/16/17 18:48 96 20 Room Air 2.0 28 07/16/17 18:48 Nasal Cannula 2.0 28 07/16/17 16:00 97.7 120 18 125/85 97 97.7 07/16/17 15:21 97.5 Height (Feet): 5 Height (Inches): 9.00 Weight (Pounds): 134 Objective General Appearance: WD/WN, no apparent distress, alert, thin Cardiovascular: normal rate Respiratory/Chest: normal breath sounds, no respiratory distress Abdominal Exam: normal bowel sounds, non tender, soft, other - colostomy Extremities: non-tender Microbiology Date/Time Source Procedure Growth Status 07/15/17 07:00 Blood Blood Culture - Preliminary NO GROWTH AFTER 24 HOURS Resulted 07/15/17 06:55 Blood Blood Culture - Preliminary NO GROWTH AFTER 24 HOURS Resulted 07/14/17 22:40 Urine,Clean Catch Urine Culture - Final NO GROWTH AFTER 48 HOURS Complete Laboratory Tests Test 07/17/17 07:05 White Blood Count 11.3 K/UL (4.8-10.8) H Red Blood Count 3.73 M/UL (4.70-6.10) L Hemoglobin 11.8 G/DL (14.2-18.0) L Hematocrit 34.1 % (42.0-52.0) L Mean Corpuscular Volume 91 FL (80-99) Mean Corpuscular Hemoglobin 31.5 PG (27.0-31.0) H Mean Corpuscular Hemoglobin Concent 34.5 G/DL (32.0-36.0) Red Cell Distribution Width 12.1 % (11.6-14.8) Platelet Count 364 K/UL (150-450) Mean Platelet Volume 5.3 FL (6.5-10.1) L Neutrophils (%) (Auto) % (45.0-75.0) Lymphocytes (%) (Auto) % (20.0-45.0) Monocytes (%) (Auto) % (1.0-10.0) Eosinophils (%) (Auto) % (0.0-3.0) Basophils (%) (Auto) % (0.0-2.0) Differential Total Cells Counted 100 Neutrophils % (Manual) 85 % (45-75) H Lymphocytes % (Manual) 7 % (20-45) L Monocytes % (Manual) 8 % (1-10) Eosinophils % (Manual) 0 % (0-3) Basophils % (Manual) 0 % (0-2) Band Neutrophils 0 % (0-8) Platelet Estimate Adequate Platelet Morphology Normal Red Blood Cell Morphology Normal Sodium Level 137 MMOL/L (136-145) Potassium Level 3.4 MMOL/L (3.5-5.1) L Chloride Level 101 MMOL/L (98-107) Carbon Dioxide Level 33 MMOL/L (21-32) H Anion Gap 3 mmol/L (5-15) L Blood Urea Nitrogen 7 mg/dL (7-18) Creatinine 0.7 MG/DL (0.55-1.30) Estimat Glomerular Filtration Rate > 60 mL/min (>60) Glucose Level 99 MG/DL (74-106) Calcium Level 8.0 MG/DL (8.5-10.1) L Phosphorus Level 3.4 MG/DL (2.5-4.9) Magnesium Level 1.4 MG/DL (1.8-2.4) L Total Bilirubin 0.3 MG/DL (0.2-1.0) Direct Bilirubin < 0.1 MG/DL (0.0-0.3) Aspartate Amino Transf (AST/SGOT) 26 U/L (15-37) Alanine Aminotransferase (ALT/SGPT) 16 U/L (12-78) Alkaline Phosphatase 115 U/L (46-116) Total Protein 5.8 G/DL (6.4-8.2) L Albumin 1.5 G/DL (3.4-5.0) L Current Medications Medications (Trade) Dose Ordered Sig/Kayy Route PRN Reason Start Time Stop Time Status Last Admin Dose Admin Acetaminophen (Tylenol) 650 mg Q6H PRN ORAL Mild Pain/Temp > 100.5 07/14/17 19:00 08/13/17 18:59 Amoxicillin (Amoxil) 500 mg EVERY 8 HOURS ORAL 07/16/17 15:00 07/23/17 14:59 07/17/17 09:19 Dextrose (Dextrose 50%) STAT PRN IV Hypoglycemia 07/11/17 20:30 08/10/17 20:29 Ertapenem 1 gm/ Sodium Chloride 55 ml @ 110 mls/hr Q24H IVPB 07/12/17 17:00 07/18/17 23:59 07/16/17 16:30 Finasteride (Proscar) 5 mg DAILY ORAL 07/13/17 09:00 08/12/17 08:59 07/17/17 09:19 Heparin Sodium (Porcine) (Heparin 5000 units/ml) 5,000 units EVERY 12 HOURS SUBQ 07/11/17 21:00 08/02/17 08:59 07/17/17 09:23 Hydromorphone HCl (Dilaudid) 2 mg Q3H PRN IVP Severe Pain (Pain Scale 7-10) 07/15/17 22:15 07/22/17 22:14 07/17/17 03:06 Ibuprofen (Motrin) 600 mg Q6H PRN ORAL Moderate Pain (Pain Scale 4-6) 07/16/17 12:30 08/15/17 12:29 07/17/17 09:20 Lansoprazole (Prevacid) 30 mg DAILY ORAL 07/12/17 09:00 08/11/17 08:59 07/17/17 09:19 Lorazepam (Ativan 2mg/ml 1ml) 1 mg Q4H PRN IV For Anxiety 07/15/17 22:15 07/22/17 22:14 Nitroglycerin (Ntg) 0.4 mg Q5MIN X 3 DOSES PRN SL Prn Chest Pain 07/11/17 20:32 08/09/17 20:31 Ondansetron HCl (Zofran) 4 mg Q6H PRN IVP Nausea & Vomiting 07/11/17 20:32 08/10/17 20:31 Potassium Chloride (K-Dur) 20 meq DAILY ORAL 07/17/17 09:00 08/16/17 08:59 07/17/17 09:20 Risperidone (RisperDAL) 3 mg BEDTIME ORAL 07/12/17 21:00 08/11/17 20:59 07/16/17 20:40 Chhaya Menendez M.D. Jul 17, 2017 14:32
--- NOTE | 2017-07-17 15:14 | Nephrology Progress Note ---
Assessment/Plan Problem List: (1) ARF (acute renal failure) (2) UTI (urinary tract infection) (3) Psychiatric disorder (4) Acute abdomen Assessment Status: WBCs wnl acute renal failure- extended left colectomy due to perf transverse colostomy creation Plan Plan: Mag and K supplement DC horan DC IV PT advance diet Post op ( OP 07/08/17) Horan- 2D echo normal Ej Fx Albumin bollous monitor renal parameters K and Phos and Mag supplement as needed Subjective ROS Limited/Unobtainable: No Constitutional: Reports: malaise Objective Objective Last 24 Hour Vital Signs Date Time Temp Pulse Resp B/P (MAP) Pulse Ox O2 Delivery O2 Flow Rate FiO2 07/17/17 12:00 98.9 102 20 87/57 98.9 07/17/17 10:51 100.2 07/17/17 09:20 100.2 07/17/17 08:54 100.2 126 20 114/73 93 100.2 07/17/17 04:00 98.5 96 18 125/76 99 98.5 07/17/17 00:00 96.3 100 18 123/75 99 96.3 07/16/17 20:00 97.7 104 20 115/72 94 97.7 07/16/17 18:48 97 Room Air 2.0 28 07/16/17 18:48 96 20 Room Air 2.0 28 07/16/17 18:48 Nasal Cannula 2.0 28 07/16/17 16:00 97.7 120 18 125/85 97 97.7 07/16/17 15:21 97.5 Intake and Output 07/16/17 07/17/17 19:00 07:00 Intake Total 550 ml 240 ml Output Total 880 ml 73 ml Balance -330 ml 167 ml Intake Oral 550 ml 240 ml Output Urine Total 700 ml 3 ml Drainage Total 180 ml 70 ml # Bowel Movements 1 Laboratory Tests 07/17/17 07:05: White Blood Count 11.3H, Red Blood Count 3.73L, Hemoglobin 11.8L, Hematocrit 34.1L, Mean Corpuscular Volume 91, Mean Corpuscular Hemoglobin 31.5H, Mean Corpuscular Hemoglobin Concent 34.5, Red Cell Distribution Width 12.1, Platelet Count 364, Mean Platelet Volume 5.3L, Neutrophils (%) (Auto) , Lymphocytes (%) ( Auto) , Monocytes (%) (Auto) , Eosinophils (%) (Auto) , Basophils (%) (Auto) , Differential Total Cells Counted 100, Neutrophils % (Manual) 85H, Lymphocytes % (Manual) 7L, Monocytes % (Manual) 8, Eosinophils % (Manual) 0, Basophils % ( Manual) 0, Band Neutrophils 0, Platelet Estimate Adequate, Platelet Morphology Normal, Red Blood Cell Morphology Normal, Sodium Level 137, Potassium Level 3.4L , Chloride Level 101, Carbon Dioxide Level 33H, Anion Gap 3L, Blood Urea Nitrogen 7, Creatinine 0.7, Estimat Glomerular Filtration Rate > 60, Glucose Level 99, Calcium Level 8.0L, Phosphorus Level 3.4, Magnesium Level 1.4L, Total Bilirubin 0.3, Direct Bilirubin < 0.1, Aspartate Amino Transf (AST/SGOT) 26, Alanine Aminotransferase (ALT/SGPT) 16, Alkaline Phosphatase 115, Total Protein 5.8L, Albumin 1.5L Height (Feet): 5 Height (Inches): 9.00 Weight (Pounds): 134 General Appearance: no apparent distress Objective no other change NOEMY MARK Jul 17, 2017 15:14
--- NOTE | 2017-07-17 16:20 | GI Progress Note ---
Assessment/Plan Problems: (1) Psychiatric disorder ICD Codes: F99 - Mental disorder, not otherwise specified SNOMED: 05595507, 224937183 (2) Amphetamine abuse ICD Codes: F15.10 - Other stimulant abuse, uncomplicated SNOMED: 42161398 (3) Opiate dependence ICD Codes: F11.20 - Opioid dependence, uncomplicated SNOMED: 90974623 Qualifiers: Qualified Codes: F11.20 - Opioid dependence, uncomplicated (4) Perforated abdominal viscus SNOMED: 485041424 Status: progressing Status Narrative Discussed with Dr. Castro. Assessment/Plan s/p Exploratory laparotomy, partial bowel resection fu surgical recs IVFs CLD, adv per surgery colostomy care prn transfusions serial imaging prn fu labs Subjective Subjective limited, awake Objective Last 24 Hour Vital Signs Date Time Temp Pulse Resp B/P (MAP) Pulse Ox O2 Delivery O2 Flow Rate FiO2 07/17/17 12:00 98.9 102 20 87/57 98.9 07/17/17 10:51 100.2 07/17/17 09:20 100.2 07/17/17 08:54 100.2 126 20 114/73 93 100.2 07/17/17 04:00 98.5 96 18 125/76 99 98.5 07/17/17 00:00 96.3 100 18 123/75 99 96.3 07/16/17 20:00 97.7 104 20 115/72 94 97.7 07/16/17 18:48 97 Room Air 2.0 28 07/16/17 18:48 96 20 Room Air 2.0 28 07/16/17 18:48 Nasal Cannula 2.0 28 Intake and Output 07/16/17 07/17/17 19:00 07:00 Intake Total 550 ml 240 ml Output Total 880 ml 73 ml Balance -330 ml 167 ml Intake Oral 550 ml 240 ml Output Urine Total 700 ml 3 ml Drainage Total 180 ml 70 ml # Bowel Movements 1 Laboratory Tests Test 07/17/17 07:05 White Blood Count 11.3 K/UL (4.8-10.8) H Red Blood Count 3.73 M/UL (4.70-6.10) L Hemoglobin 11.8 G/DL (14.2-18.0) L Hematocrit 34.1 % (42.0-52.0) L Mean Corpuscular Volume 91 FL (80-99) Mean Corpuscular Hemoglobin 31.5 PG (27.0-31.0) H Mean Corpuscular Hemoglobin Concent 34.5 G/DL (32.0-36.0) Red Cell Distribution Width 12.1 % (11.6-14.8) Platelet Count 364 K/UL (150-450) Mean Platelet Volume 5.3 FL (6.5-10.1) L Neutrophils (%) (Auto) % (45.0-75.0) Lymphocytes (%) (Auto) % (20.0-45.0) Monocytes (%) (Auto) % (1.0-10.0) Eosinophils (%) (Auto) % (0.0-3.0) Basophils (%) (Auto) % (0.0-2.0) Differential Total Cells Counted 100 Neutrophils % (Manual) 85 % (45-75) H Lymphocytes % (Manual) 7 % (20-45) L Monocytes % (Manual) 8 % (1-10) Eosinophils % (Manual) 0 % (0-3) Basophils % (Manual) 0 % (0-2) Band Neutrophils 0 % (0-8) Platelet Estimate Adequate Platelet Morphology Normal Red Blood Cell Morphology Normal Sodium Level 137 MMOL/L (136-145) Potassium Level 3.4 MMOL/L (3.5-5.1) L Chloride Level 101 MMOL/L (98-107) Carbon Dioxide Level 33 MMOL/L (21-32) H Anion Gap 3 mmol/L (5-15) L Blood Urea Nitrogen 7 mg/dL (7-18) Creatinine 0.7 MG/DL (0.55-1.30) Estimat Glomerular Filtration Rate > 60 mL/min (>60) Glucose Level 99 MG/DL (74-106) Calcium Level 8.0 MG/DL (8.5-10.1) L Phosphorus Level 3.4 MG/DL (2.5-4.9) Magnesium Level 1.4 MG/DL (1.8-2.4) L Total Bilirubin 0.3 MG/DL (0.2-1.0) Direct Bilirubin < 0.1 MG/DL (0.0-0.3) Aspartate Amino Transf (AST/SGOT) 26 U/L (15-37) Alanine Aminotransferase (ALT/SGPT) 16 U/L (12-78) Alkaline Phosphatase 115 U/L (46-116) Total Protein 5.8 G/DL (6.4-8.2) L Albumin 1.5 G/DL (3.4-5.0) L Height (Feet): 5 Height (Inches): 9.00 Weight (Pounds): 134 General Appearance: WD/WN, no apparent distress, alert Cardiovascular: normal rate Respiratory/Chest: normal breath sounds, no respiratory distress Abdominal Exam: normal bowel sounds, non tender, soft, incision site Extremities: normal range of motion, non-tender Samia Albarran N.P. Jul 17, 2017 16:20
[2017-07-17] MEDS: traMADol 50mg tab ORAL PRN (17:06)
[2017-07-17] MEDS: HYDROmorphone 1mg/ml Carpuject IVP PRN (20:14)
--- NOTE | 2017-07-17 21:11 | Pulmonology Progress Note ---
Assessment/Plan Problems: (1) Perforated abdominal viscus (2) ARF (acute renal failure) (3) Psychosis (4) Acute constipation (5) Amphetamine abuse Assessment/Plan d/w surgeon, surgical sutures are not healing well iv fluids pain management med/surg check electrolytes Subjective ROS Limited/Unobtainable: No Constitutional: Reports: no symptoms HEENT: Repors: no symptoms Allergies: Coded Allergies: No Known Allergies (Unverified , 01/20/17) Objective Last 24 Hour Vital Signs Date Time Temp Pulse Resp B/P (MAP) Pulse Ox O2 Delivery O2 Flow Rate FiO2 07/17/17 20:21 100.5 07/17/17 17:55 98.6 74 18 116/65 98 Room Air 98.6 07/17/17 17:06 98.9 07/17/17 16:15 98.7 74 18 116/65 97 Room Air 98.7 07/17/17 12:00 98.9 102 20 87/57 98.9 07/17/17 10:51 100.2 07/17/17 09:20 100.2 07/17/17 08:54 100.2 126 20 114/73 93 100.2 07/17/17 04:00 98.5 96 18 125/76 99 98.5 07/17/17 00:00 96.3 100 18 123/75 99 96.3 Intake and Output 07/16/17 07/17/17 19:00 07:00 Intake Total 550 ml 240 ml Output Total 880 ml 73 ml Balance -330 ml 167 ml Intake Oral 550 ml 240 ml Output Urine Total 700 ml 3 ml Drainage Total 180 ml 70 ml # Bowel Movements 1 Objective General Appearance: WD/WN Lines, tubes and drains: peripheral HEENT: normocephalic, atraumatic Neck: non-tender, normal alignment Respiratory/Chest: chest wall non-tender, lungs clear Breasts: no masses Cardiovascular/Chest: normal peripheral pulses, normal rate Abdomen: normal bowel sounds, clean dressing Genitourinary/Rectal: normal genital exam, heme negative stool Extremities: normal range of motion, non-tender Skin Exam: normal pigmentation Microbiology Date/Time Source Procedure Growth Status 07/15/17 07:00 Blood Blood Culture - Preliminary NO GROWTH AFTER 24 HOURS Resulted 07/15/17 06:55 Blood Blood Culture - Preliminary NO GROWTH AFTER 24 HOURS Resulted 07/14/17 22:40 Urine,Clean Catch Urine Culture - Final NO GROWTH AFTER 48 HOURS Complete Laboratory Tests 07/17/17 07:05: White Blood Count 11.3H, Red Blood Count 3.73L, Hemoglobin 11.8L, Hematocrit 34.1L, Mean Corpuscular Volume 91, Mean Corpuscular Hemoglobin 31.5H, Mean Corpuscular Hemoglobin Concent 34.5, Red Cell Distribution Width 12.1, Platelet Count 364, Mean Platelet Volume 5.3L, Neutrophils (%) (Auto) , Lymphocytes (%) ( Auto) , Monocytes (%) (Auto) , Eosinophils (%) (Auto) , Basophils (%) (Auto) , Differential Total Cells Counted 100, Neutrophils % (Manual) 85H, Lymphocytes % (Manual) 7L, Monocytes % (Manual) 8, Eosinophils % (Manual) 0, Basophils % ( Manual) 0, Band Neutrophils 0, Platelet Estimate Adequate, Platelet Morphology Normal, Red Blood Cell Morphology Normal, Sodium Level 137, Potassium Level 3.4L , Chloride Level 101, Carbon Dioxide Level 33H, Anion Gap 3L, Blood Urea Nitrogen 7, Creatinine 0.7, Estimat Glomerular Filtration Rate > 60, Glucose Level 99, Calcium Level 8.0L, Phosphorus Level 3.4, Magnesium Level 1.4L, Total Bilirubin 0.3, Direct Bilirubin < 0.1, Aspartate Amino Transf (AST/SGOT) 26, Alanine Aminotransferase (ALT/SGPT) 16, Alkaline Phosphatase 115, Total Protein 5.8L, Albumin 1.5L Current Medications Medications (Trade) Dose Ordered Sig/Kayy Route PRN Reason Start Time Stop Time Status Last Admin Dose Admin Acetaminophen (Tylenol) 650 mg Q6H PRN ORAL Mild Pain/Temp > 100.5 07/14/17 19:00 08/13/17 18:59 07/17/17 20:21 Amoxicillin (Amoxil) 500 mg EVERY 8 HOURS ORAL 07/16/17 15:00 07/23/17 14:59 07/17/17 09:19 Dextrose (Dextrose 50%) STAT PRN IV Hypoglycemia 07/11/17 20:30 08/10/17 20:29 Ertapenem 1 gm/ Sodium Chloride 55 ml @ 110 mls/hr Q24H IVPB 07/12/17 17:00 07/18/17 23:59 07/16/17 16:30 Finasteride (Proscar) 5 mg DAILY ORAL 07/13/17 09:00 08/12/17 08:59 07/17/17 09:19 Heparin Sodium (Porcine) (Heparin 5000 units/ml) 5,000 units EVERY 12 HOURS SUBQ 07/11/17 21:00 08/02/17 08:59 07/17/17 09:23 Hydromorphone HCl (Dilaudid) 1 mg Q4H PRN IVP Severe Pain (Pain Scale 7-10) 07/17/17 15:15 07/22/17 22:14 07/17/17 20:14 Lansoprazole (Prevacid) 30 mg DAILY ORAL 07/12/17 09:00 08/11/17 08:59 07/17/17 09:19 Lorazepam (Ativan 2mg/ml 1ml) 1 mg Q4H PRN IV For Anxiety 07/15/17 22:15 07/22/17 22:14 Nitroglycerin (Ntg) 0.4 mg Q5MIN X 3 DOSES PRN SL Prn Chest Pain 07/11/17 20:32 08/09/17 20:31 Ondansetron HCl (Zofran) 4 mg Q6H PRN IVP Nausea & Vomiting 07/11/17 20:32 08/10/17 20:31 Potassium Chloride (K-Dur) 20 meq DAILY ORAL 07/17/17 09:00 08/16/17 08:59 07/17/17 09:20 Risperidone (RisperDAL) 3 mg BEDTIME ORAL 07/12/17 21:00 08/11/17 20:59 07/16/17 20:40 Tramadol HCl (Ultram) 25 mg Q6H PRN ORAL mod pain 07/17/17 15:15 07/24/17 15:14 07/17/17 17:06 Brenda Martel MD Jul 17, 2017 21:11
[2017-07-17] MEDS: Ertapenem 1 GM in NS 55 ML IVPB SCH (22:50)
[2017-07-18] VITALS: BP 111/68
[2017-07-18] MEDS: HYDROmorphone 1mg/ml Carpuject IVP PRN ×4 (00:57→22:20)
[2017-07-18 04:00] VITALS: BP 109/65
[2017-07-18 07:01] LABS: BASOPHILS % (AUTO) 0.7 % (0.0-2.0); EOSINOPHILS % (AUTO) 0.6 % (0.0-3.0); HEMOGLOBIN 10.1 G/DL (14.2-18.0); LYMPHOCYTES % (AUTO) 11.9 % (20.0-45.0); MEAN CORPUSCULAR VOLUME 91 FL (80-99); MONOCYTES % (AUTO) 6.2 % (1.0-10.0); NEUTROPHILS % (AUTO) 80.6 % (45.0-75.0); PLATELET COUNT 375 K/UL (150-450); RED BLOOD COUNT 3.31 M/UL (4.70-6.10); RED CELL DISTRIBUTION WIDTH 12.1 % (11.6-14.8); WHITE BLOOD COUNT 9.3 K/UL (4.8-10.8)
[2017-07-18 07:14] LABS: ALANINE AMINOTRANSFERASE 12 U/L (12-78); ALBUMIN 1.4 G/DL (3.4-5.0); ALBUMIN/GLOBULIN RATIO 0.3 (1.0-2.7); ALKALINE PHOSPHATASE 102 U/L (46-116); ANION GAP 6 mmol/L (5-15); ASPARTATE AMINO TRANSFERASE 19 U/L (15-37); BILIRUBIN,TOTAL 0.3 MG/DL (0.2-1.0); BLOOD UREA NITROGEN 8 mg/dL (7-18); CALCIUM 7.9 MG/DL (8.5-10.1); CARBON DIOXIDE 30 MMOL/L (21-32); CHLORIDE 101 MMOL/L (98-107); CREATININE 0.6 MG/DL (0.55-1.30); POTASSIUM 3.6 MMOL/L (3.5-5.1); SODIUM 137 MMOL/L (136-145)
[2017-07-18 07:52] VITALS: BP 106/69
[2017-07-18] MEDS ORDERED: Tubing IV Secondary IV ONE ×3 (11:05→14:21)
--- NOTE | 2017-07-18 11:11 | GI Progress Note ---
Assessment/Plan Problems: (1) Psychiatric disorder ICD Codes: F99 - Mental disorder, not otherwise specified SNOMED: 53039095, 756216072 (2) Amphetamine abuse ICD Codes: F15.10 - Other stimulant abuse, uncomplicated SNOMED: 50895731 (3) Opiate dependence ICD Codes: F11.20 - Opioid dependence, uncomplicated SNOMED: 92394776 Qualifiers: Qualified Codes: F11.20 - Opioid dependence, uncomplicated (4) Perforated abdominal viscus SNOMED: 194350986 Status: stable, progressing Status Narrative Discussed with Dr. Castro. Assessment/Plan s/p Exploratory laparotomy, partial bowel resection fu surgical recs IVFs CLD, adv per surgery colostomy care prn transfusions serial imaging prn fu labs Subjective Gastrointestinal/Abdominal: Reports: abdominal pain - improving Objective Last 24 Hour Vital Signs Date Time Temp Pulse Resp B/P (MAP) Pulse Ox O2 Delivery O2 Flow Rate FiO2 07/18/17 07:52 97.3 94 20 106/69 96 97.3 07/18/17 07:41 Nasal Cannula 2.0 28 07/18/17 07:41 95 Nasal Cannula 2.0 28 07/18/17 07:40 90 20 Nasal Cannula 2.0 28 07/18/17 04:00 97.0 92 20 109/65 96 Nasal Cannula 97.0 07/18/17 00:00 98.2 99 20 111/68 96 Nasal Cannula 98.2 07/17/17 21:20 99.1 07/17/17 20:21 100.5 07/17/17 20:00 100.3 98 21 122/68 98 100.3 07/17/17 19:25 97 20 Room Air 2.0 28 07/17/17 19:25 Nasal Cannula 2.0 28 07/17/17 19:25 98 Nasal Cannula 2.0 28 07/17/17 17:55 98.6 74 18 116/65 98 Room Air 98.6 07/17/17 17:06 98.9 07/17/17 16:15 98.7 74 18 116/65 97 Room Air 98.7 07/17/17 12:00 98.9 102 20 87/57 98.9 Intake and Output 07/17/17 07/18/17 19:00 07:00 Intake Total 360 ml Output Total 40 ml 49 ml Balance 320 ml -49 ml Intake Oral 360 ml Drainage Total 40 ml 49 ml # Voids 4 2 Laboratory Tests Test 07/18/17 05:15 White Blood Count 9.3 K/UL (4.8-10.8) Red Blood Count 3.31 M/UL (4.70-6.10) L Hemoglobin 10.1 G/DL (14.2-18.0) L Hematocrit 30.0 % (42.0-52.0) L Mean Corpuscular Volume 91 FL (80-99) Mean Corpuscular Hemoglobin 30.6 PG (27.0-31.0) Mean Corpuscular Hemoglobin Concent 33.8 G/DL (32.0-36.0) Red Cell Distribution Width 12.1 % (11.6-14.8) Platelet Count 375 K/UL (150-450) Mean Platelet Volume 5.1 FL (6.5-10.1) L Neutrophils (%) (Auto) 80.6 % (45.0-75.0) H Lymphocytes (%) (Auto) 11.9 % (20.0-45.0) L Monocytes (%) (Auto) 6.2 % (1.0-10.0) Eosinophils (%) (Auto) 0.6 % (0.0-3.0) Basophils (%) (Auto) 0.7 % (0.0-2.0) Sodium Level 137 MMOL/L (136-145) Potassium Level 3.6 MMOL/L (3.5-5.1) Chloride Level 101 MMOL/L (98-107) Carbon Dioxide Level 30 MMOL/L (21-32) Anion Gap 6 mmol/L (5-15) Blood Urea Nitrogen 8 mg/dL (7-18) Creatinine 0.6 MG/DL (0.55-1.30) Estimat Glomerular Filtration Rate > 60 mL/min (>60) Glucose Level 92 MG/DL (74-106) Calcium Level 7.9 MG/DL (8.5-10.1) L Total Bilirubin 0.3 MG/DL (0.2-1.0) Aspartate Amino Transf (AST/SGOT) 19 U/L (15-37) Alanine Aminotransferase (ALT/SGPT) 12 U/L (12-78) Alkaline Phosphatase 102 U/L (46-116) Total Protein 5.4 G/DL (6.4-8.2) L Albumin 1.4 G/DL (3.4-5.0) L Globulin 4.0 g/dL Albumin/Globulin Ratio 0.3 (1.0-2.7) L Height (Feet): 5 Height (Inches): 9.00 Weight (Pounds): 133 General Appearance: WD/WN, no apparent distress, alert Cardiovascular: normal rate Respiratory/Chest: normal breath sounds, no respiratory distress Abdominal Exam: normal bowel sounds, non tender, soft Extremities: normal range of motion, non-tender Samia Albarran N.P. Jul 18, 2017 11:11
[2017-07-18 11:17] VITALS: BP 109/64
[2017-07-18] MEDS ORDERED: D5NS 1000ml IV ONE ×2 (11:19→14:21)
[2017-07-18] MEDS ORDERED: Sterile Water Irrig 1000ml IRRIG ONE (11:19)
[2017-07-18] MEDS: Heparin 5000 units/ml inj SUBQ SCH ×2 (11:27→20:23)
[2017-07-18] MEDS: traMADol 50mg tab ORAL PRN ×2 (11:35→18:00)
--- NOTE | 2017-07-18 11:47 | Diagnostic Imaging Report ---
Clinical Indication: Abdominal pain, history of recent surgery for bowel perforation Technique: Patient given enteric contrast IV administration nonionic contrast. Venous phase spiral acquisition obtained through the abdomen and pelvis. Multiplanar reconstructions were generated. Total dose length product 570.09 mGycm. CTDIvol(s) 10.72 mGy. Dose reduction achieved using automated exposure control Comparison: 07/08/2017 noncontrast study Findings: Interim left hemicolectomy and Jazz procedure. There is an open midline surgical wound. There is a distal transverse colostomy. A surgical drain enters the right lower quadrant and is situated in the posterior pelvis. A second surgical drain enters the right upper quadrant and is situated above the left hepatic lobe with the tip lateral to the spleen. Intraperitoneal fluid collection is seen under the left hemidiaphragm, surrounding the spleen, extending in the left anterolateral peritoneal space into the upper left paracolic gutter. The cephalad aspect of this collection contains some gas bubbles, some of which are not nondependent. This collection demonstrates a somewhat thickened enhancing rim and is present despite the presence of the surgical drain. A second separate collection, probably also within the peritoneal space, is seen more inferiorly in the left paracolic gutter is also demonstrates a somewhat thickened enhancing rim, measures 5.8 cm AP by 4.3 cm transverse by 8.3 cm craniocaudad. Fluid is also seen within the right paracolic gutter, medial and inferior to the tip of the right hepatic lobe. This also demonstrates a somewhat thickened enhancing rim, measures 8 cm transverse by 6.4 cm AP by 8 cm craniocaudad. Minimal if any fluid is seen within the pelvis surrounding the surgical drain. Other then the small amount of gas in the left upper quadrant collection, previously demonstrated pneumoperitoneum has largely resolved. Distal esophagus and stomach are unremarkable. There is considerable wall thickening of small bowel loops in the left upper quadrant. There is mild dilatation of small bowel loops. However, contrast is seen to traverse the entirety of the small bowel and is seen throughout the entirety of the residual colon. The ascending colon wall appears mildly thickened, but this may be an artifact of under distention. A small ovoid fluid collection is seen apparently within the wall of the distal sigmoid a few centimeters below the stomach. This is not definitely evident previously. Uncertain as to whether this is a diverticulum or is somehow related to the recent surgery. The liver is unremarkable. The gallbladder demonstrates wall edema versus pericholecystic fluid. No gallstones are demonstrated. No biliary ductal dilatation. The pancreas, spleen, adrenals, kidneys are unremarkable. No pelvic mass or adenopathy. No retroperitoneal or mesenteric mass or adenopathy. Previously demonstrated Dickens catheter is no longer present. There is a small amount of gas within the bladder, most likely related to the recent Dickens catheterization. Lung bases demonstrate bilateral [id number] pleural effusions and considerable dependent and compressive atelectasis of portions of both lower lobes, more so on the left than on the right. The bones are unremarkable. Disc calcifications are seen at T8-9 and small anterior osteophytes are seen at L5-S1 Impression: Postsurgical changes, as described, status post transverse colectomy, Jazz procedure, and placement of multiple surgical drains Left upper quadrant intraperitoneal fluid collection, despite the presence of a surgical drain in the center of the collection. The presence of gas bubbles within rather than floating nondependently in the collection indicate that this fluid may be viscous. 2 other significant intraperitoneal collections, as detailed above, which do not appear to communicate, possibly loculated. Given presence of somewhat thick enhancing rim surrounding all of these, infected collections are certainly possible Other than the gas within the left upper quadrant collection, previously demonstrated pneumoperitoneum has largely resolved Left upper quadrant thick walled small bowel loops. Possibly reactive due to adjacent inflammation, enteritis is also possible. No evidence of bowel obstruction Small ovoid fluid collection in the wall of the distal sigmoid, not definitely evident previously. Possibly related to the recent surgery, possibly a small diverticulum, or less likely an intramural abscess Gallbladder wall edema versus pericholecystic fluid. Suspect fluid related to the recent surgery, particularly given the absence of gallstones on this study a recent ultrasound. However, acute acalculous cholecystitis is also possible. Consideration should be given to hepatobiliary scanning if there is high clinical suspicion Interim Dickens catheter removal. Small amount of gas within the bladder likely related to the recent Dickens catheter. Bilateral [id number] pleural effusions and considerable basilar dependent and compressive pulmonary parenchymal atelectasis Minimal degenerative spondylosis changes The CT scanner at [facility] is accredited by the [employer] and the scans are performed using protocols designed to limit radiation exposure to as low as reasonably achievable to attain images of sufficient resolution adequate for diagnostic evaluation.
--- NOTE | 2017-07-18 14:47 | General Progress Note ---
Progress Note Progress Note Surgery: doing well. always asking for more pain meds. no n/v/f/c. tolerating diet but not taking in much. afebrile, HD stable, no leukocytosis, labs reviewed. clinically stable. exam stable with midline wound granulating over. fascial dehiscence noted upper drain with milkly purulent output lower drain with serous output CT reviewed and large fluid collections in and around where upper drain is. this is area of large abscess that was noted during first surgery. unsure if sterile fluid collection but clinically afebrile, no leukocytosis, stable. Given prior surgery and being so recent he will have a very hostile abdomen and in patient that is clinically stable it would not be advised for re-operation at this time. discussed with radiology and will attempt percutaneous drainage of remaining fluid collections. well sent fluid for cultures. continue abx for now. as long as clinically stable will attempt drainage of abscess for now. if possible will wait 6 weeks prior to repeat laparotomy given hostile abdomen. will follow with recs. Gilebrto Michelle Jul 18, 2017 14:47
--- NOTE | 2017-07-18 14:57 | Nephrology Progress Note ---
Assessment/Plan Problem List: (1) ARF (acute renal failure) (2) UTI (urinary tract infection) (3) Psychiatric disorder (4) Acute abdomen Assessment Status: WBCs wnl had multi abdominal drains acute renal failure- extended left colectomy due to perf transverse colostomy creation Plan Plan: per charles Mag and K supplement DC horan DC IV PT advance diet Post op ( OP 07/08/17) Horan- 2D echo normal Ej Fx Albumin bollous monitor renal parameters K and Phos and Mag supplement as needed Subjective ROS Limited/Unobtainable: No Constitutional: Reports: malaise Objective Objective Last 24 Hour Vital Signs Date Time Temp Pulse Resp B/P (MAP) Pulse Ox O2 Delivery O2 Flow Rate FiO2 07/18/17 12:41 97.7 07/18/17 11:35 97.7 07/18/17 11:17 97.7 96 20 109/64 97 97.7 07/18/17 11:11 97.3 07/18/17 07:52 97.3 94 20 106/69 96 97.3 07/18/17 07:41 Nasal Cannula 2.0 28 07/18/17 07:41 95 Nasal Cannula 2.0 28 07/18/17 07:40 90 20 Nasal Cannula 2.0 28 07/18/17 04:00 97.0 92 20 109/65 96 Nasal Cannula 97.0 07/18/17 00:00 98.2 99 20 111/68 96 Nasal Cannula 98.2 07/17/17 21:20 99.1 07/17/17 20:21 100.5 07/17/17 20:00 100.3 98 21 122/68 98 100.3 07/17/17 19:25 97 20 Room Air 2.0 28 07/17/17 19:25 Nasal Cannula 2.0 28 07/17/17 19:25 98 Nasal Cannula 2.0 28 07/17/17 17:55 98.6 74 18 116/65 98 Room Air 98.6 07/17/17 17:06 98.9 07/17/17 16:15 98.7 74 18 116/65 97 Room Air 98.7 Intake and Output 07/17/17 07/18/17 19:00 07:00 Intake Total 360 ml Output Total 40 ml 49 ml Balance 320 ml -49 ml Intake Oral 360 ml Drainage Total 40 ml 49 ml # Voids 4 2 Laboratory Tests 07/18/17 05:15: White Blood Count 9.3, Red Blood Count 3.31L, Hemoglobin 10.1L, Hematocrit 30.0L , Mean Corpuscular Volume 91, Mean Corpuscular Hemoglobin 30.6, Mean Corpuscular Hemoglobin Concent 33.8, Red Cell Distribution Width 12.1, Platelet Count 375, Mean Platelet Volume 5.1L, Neutrophils (%) (Auto) 80.6H, Lymphocytes (%) (Auto) 11.9L, Monocytes (%) (Auto) 6.2, Eosinophils (%) (Auto) 0.6, Basophils (%) (Auto) 0.7, Sodium Level 137, Potassium Level 3.6, Chloride Level 101, Carbon Dioxide Level 30, Anion Gap 6, Blood Urea Nitrogen 8, Creatinine 0.6 , Estimat Glomerular Filtration Rate > 60, Glucose Level 92, Calcium Level 7.9L , Total Bilirubin 0.3, Aspartate Amino Transf (AST/SGOT) 19, Alanine Aminotransferase (ALT/SGPT) 12, Alkaline Phosphatase 102, Total Protein 5.4L, Albumin 1.4L, Globulin 4.0, Albumin/Globulin Ratio 0.3L Height (Feet): 5 Height (Inches): 9.00 Weight (Pounds): 133 General Appearance: no apparent distress Respiratory/Chest: decreased breath sounds Abdomen: distended Objective no other change NOEMY MARK Jul 18, 2017 14:57
--- NOTE | 2017-07-18 15:26 | Infectious Diseases Prog Note ---
Assessment/Plan Assessment/Plan ASSESSMENT: The patient is a 46-year-old male with; Bowel perf w/ development of 2 Abscess (subphrenic and pelvic) Cx: E coli( ESBL) and ENTEROCOCCUS AVIUM (turcios S) and Bact Fragilis - Repeat CT with persistent LUQ fluid collection and 2 other fluid collections; former suspect still residual abscess; latter 2 possible sterile vs infected s/p ex lap with left colectomy and transverse colostomy for perforated left colon, evacuation of intrabd abscess, abd washout w/ drain placement 07/09 -CT abd/p w/ 07/18: Postsurgical changes, as described, status post transverse colectomy, Jazz procedure, and placement of multiple surgical drains. Left upper quadrant intraperitoneal fluid collection, despite the presence of a surgical drain in the center of the collection. The presence of gas bubbles within rather than floating nondependently in the collection indicate that this fluid may be viscous. 2 other significant intraperitoneal collections,which do not appear to communicate, possibly loculated. Given presence of somewhat thick enhancing rim surrounding all of these, infected collections are certainly possible ( left paracolic gutter 5.8 cmx 4.3 cm x 8.3cm and R paracolic gutter, medial and inferior to tip R hepatic lobe 8cm x 6.4cm x8cm). Other than the gas within the left upper quadrant collection, previously demonstrated pneumoperitoneum has largely resolved. Left upper quadrant thick walled small bowel loops. Possibly reactive due to adjacent inflammation, enteritis is also possible. No evidence of bowel obstruction. Gallbladder wall edema versus pericholecystic fluid. -OR findings: The omentum was significantly thickened and adhesed to the small bowel and into the left lower quadrant. There was significant inflammatory process throughout the abdomen including a thickening of almost the entire peritoneal lining. The proximal portion of the jejunum was significantly thickened and had a rind of inflammatory infectious tissue on it. left transverse and descending colon, there was significant amount of thickening and significant disease process with some areas of mild ischemia noted and in the descending colon around the descending and sigmoid junction, there was a gross perforation with grossspillage of bowel contents noted in the area. there was a fluid collection/pelvic abscess, which was evacuated. There was a fluid collection in the right upper quadrant around the liver, which was evacuated and a large left upper quadrant subphrenic abscess with significant tissue rind and thickening around the stomach, spleen, peritoneum, and diaphragm in that location. CT : Evidence of perforation of hollow viscus with extensive amount of free air in the upper abdomen and some free fluid is well. Fever/Leukocytosis, recurrent- improving- 2ry to above -Bcx NTD Elevated ALP -Abd US: Negative for gallstones. There is borderline gallbladder wall thickening, however. Most likely, this is reactive secondary to surrounding inflammation related to recent bowel perforation and surgery for such. However, the possibility of acalculous acute cholecystitis should be considered, and consideration for nuclear medicine hepatobiliary scanning if there is high clinical suspicion history of diarrhea, SP RAMSEY: Improved HTN COPD/asthma. Smoker. History of chronic constipation. Osteoarthritis. ? CAD/AR, hx PLAN: -Switch IV Ertapenem #8 and PO Amoxicillin #3 to IV Zosyn to consolidate abx tx and provide IV abx for enteroccocus- for intrabdominal abscess; will need 2-6 weeks pending resolution of collections --for CT guided drainage of collections; send cultures --07/16 SP Cefepime #2 --07/12 SP Zosyn d# 6 --SP Rocephin d# 5 monitor chest x-ray. Nephrology, following Monitor ( Blood ) Cx Surg f/u Discussed with RN Subjective Allergies: Coded Allergies: No Known Allergies (Unverified , 01/20/17) Subjective afebrile in 36hrs leukocytosis resolved Bcx NTD Objective Vital Signs Last 24 Hour Vital Signs Date Time Temp Pulse Resp B/P (MAP) Pulse Ox O2 Delivery O2 Flow Rate FiO2 07/18/17 12:41 97.7 07/18/17 11:35 97.7 07/18/17 11:17 97.7 96 20 109/64 97 97.7 07/18/17 11:11 97.3 07/18/17 07:52 97.3 94 20 106/69 96 97.3 07/18/17 07:41 Nasal Cannula 2.0 28 07/18/17 07:41 95 Nasal Cannula 2.0 28 07/18/17 07:40 90 20 Nasal Cannula 2.0 28 07/18/17 04:00 97.0 92 20 109/65 96 Nasal Cannula 97.0 07/18/17 00:00 98.2 99 20 111/68 96 Nasal Cannula 98.2 07/17/17 21:20 99.1 07/17/17 20:21 100.5 07/17/17 20:00 100.3 98 21 122/68 98 100.3 07/17/17 19:25 97 20 Room Air 2.0 28 07/17/17 19:25 Nasal Cannula 2.0 28 07/17/17 19:25 98 Nasal Cannula 2.0 28 07/17/17 17:55 98.6 74 18 116/65 98 Room Air 98.6 07/17/17 17:06 98.9 07/17/17 16:15 98.7 74 18 116/65 97 Room Air 98.7 Height (Feet): 5 Height (Inches): 9.00 Weight (Pounds): 133 Objective General Appearance: WD/WN, no apparent distress, alert, thin Cardiovascular: normal rate Respiratory/Chest: normal breath sounds, no respiratory distress Abdominal Exam: normal bowel sounds, non tender, soft, other - colostomy Extremities: non-tender Laboratory Tests Test 07/18/17 05:15 White Blood Count 9.3 K/UL (4.8-10.8) Red Blood Count 3.31 M/UL (4.70-6.10) L Hemoglobin 10.1 G/DL (14.2-18.0) L Hematocrit 30.0 % (42.0-52.0) L Mean Corpuscular Volume 91 FL (80-99) Mean Corpuscular Hemoglobin 30.6 PG (27.0-31.0) Mean Corpuscular Hemoglobin Concent 33.8 G/DL (32.0-36.0) Red Cell Distribution Width 12.1 % (11.6-14.8) Platelet Count 375 K/UL (150-450) Mean Platelet Volume 5.1 FL (6.5-10.1) L Neutrophils (%) (Auto) 80.6 % (45.0-75.0) H Lymphocytes (%) (Auto) 11.9 % (20.0-45.0) L Monocytes (%) (Auto) 6.2 % (1.0-10.0) Eosinophils (%) (Auto) 0.6 % (0.0-3.0) Basophils (%) (Auto) 0.7 % (0.0-2.0) Sodium Level 137 MMOL/L (136-145) Potassium Level 3.6 MMOL/L (3.5-5.1) Chloride Level 101 MMOL/L (98-107) Carbon Dioxide Level 30 MMOL/L (21-32) Anion Gap 6 mmol/L (5-15) Blood Urea Nitrogen 8 mg/dL (7-18) Creatinine 0.6 MG/DL (0.55-1.30) Estimat Glomerular Filtration Rate > 60 mL/min (>60) Glucose Level 92 MG/DL (74-106) Calcium Level 7.9 MG/DL (8.5-10.1) L Total Bilirubin 0.3 MG/DL (0.2-1.0) Aspartate Amino Transf (AST/SGOT) 19 U/L (15-37) Alanine Aminotransferase (ALT/SGPT) 12 U/L (12-78) Alkaline Phosphatase 102 U/L (46-116) Total Protein 5.4 G/DL (6.4-8.2) L Albumin 1.4 G/DL (3.4-5.0) L Globulin 4.0 g/dL Albumin/Globulin Ratio 0.3 (1.0-2.7) L Current Medications Medications (Trade) Dose Ordered Sig/Kayy Route PRN Reason Start Time Stop Time Status Last Admin Dose Admin Acetaminophen (Tylenol) 650 mg Q6H PRN ORAL Mild Pain/Temp > 100.5 07/14/17 19:00 08/13/17 18:59 07/17/17 20:21 Amoxicillin (Amoxil) 500 mg EVERY 8 HOURS ORAL 07/16/17 15:00 07/23/17 14:59 07/18/17 14:34 Dextrose (Dextrose 50%) STAT PRN IV Hypoglycemia 07/11/17 20:30 08/10/17 20:29 Ertapenem 1 gm/ Sodium Chloride 55 ml @ 110 mls/hr Q24H IVPB 07/12/17 17:00 07/18/17 23:59 07/17/17 22:50 Finasteride (Proscar) 5 mg DAILY ORAL 07/13/17 09:00 08/12/17 08:59 07/17/17 09:19 Heparin Sodium (Porcine) (Heparin 5000 units/ml) 5,000 units EVERY 12 HOURS SUBQ 07/11/17 21:00 08/02/17 08:59 07/18/17 11:27 Hydromorphone HCl (Dilaudid) 1 mg Q4H PRN IVP Severe Pain (Pain Scale 7-10) 07/17/17 15:15 07/22/17 22:14 07/18/17 09:54 Lansoprazole (Prevacid) 30 mg DAILY ORAL 07/12/17 09:00 08/11/17 08:59 07/17/17 09:19 Lorazepam (Ativan 2mg/ml 1ml) 1 mg Q4H PRN IV For Anxiety 07/15/17 22:15 07/22/17 22:14 Nitroglycerin (Ntg) 0.4 mg Q5MIN X 3 DOSES PRN SL Prn Chest Pain 07/11/17 20:32 08/09/17 20:31 Ondansetron HCl (Zofran) 4 mg Q6H PRN IVP Nausea & Vomiting 07/11/17 20:32 08/10/17 20:31 Potassium Chloride (K-Dur) 20 meq DAILY ORAL 07/17/17 09:00 08/16/17 08:59 07/17/17 09:20 Risperidone (RisperDAL) 3 mg BEDTIME ORAL 07/12/17 21:00 08/11/17 20:59 07/17/17 21:31 Temazepam (Restoril) 15 mg HSPRN PRN ORAL Insomnia 07/17/17 21:30 07/24/17 21:29 Tramadol HCl (Ultram) 25 mg Q6H PRN ORAL mod pain 07/17/17 15:15 07/24/17 15:14 07/18/17 11:35 Chhaya Menendez M.D. Jul 18, 2017 15:26
[2017-07-18 16:00] VITALS: BP 115/65
--- NOTE | 2017-07-18 16:47 | Cardiology Report ---
APPROVED REPORT EKG Measurement Heart [id number] Sinus tachycardia Nonspecific T wave abnormality Abnormal ECG
--- NOTE | 2017-07-18 18:55 | Pulmonology Progress Note ---
Assessment/Plan Problems: (1) Perforated abdominal viscus (2) ARF (acute renal failure) (3) Psychosis (4) Acute constipation (5) Amphetamine abuse Assessment/Plan d/w surgeon, surgical sutures are not healing well iv fluids continue anbx f/u clinically pain management med/surg check electrolytes Subjective ROS Limited/Unobtainable: No Allergies: Coded Allergies: No Known Allergies (Unverified , 01/20/17) Objective Last 24 Hour Vital Signs Date Time Temp Pulse Resp B/P (MAP) Pulse Ox O2 Delivery O2 Flow Rate FiO2 07/18/17 18:00 97.9 07/18/17 16:00 97.9 19 115/65 93 97.9 07/18/17 12:41 97.7 07/18/17 11:35 97.7 07/18/17 11:17 97.7 96 20 109/64 97 97.7 07/18/17 11:11 97.3 07/18/17 07:52 97.3 94 20 106/69 96 97.3 07/18/17 07:41 Nasal Cannula 2.0 28 07/18/17 07:41 95 Nasal Cannula 2.0 28 07/18/17 07:40 90 20 Nasal Cannula 2.0 28 07/18/17 04:00 97.0 92 20 109/65 96 Nasal Cannula 97.0 07/18/17 00:00 98.2 99 20 111/68 96 Nasal Cannula 98.2 07/17/17 21:20 99.1 07/17/17 20:21 100.5 07/17/17 20:00 100.3 98 21 122/68 98 100.3 07/17/17 19:25 97 20 Room Air 2.0 28 07/17/17 19:25 Nasal Cannula 2.0 28 07/17/17 19:25 98 Nasal Cannula 2.0 28 Intake and Output 07/17/17 07/18/17 19:00 07:00 Intake Total 360 ml Output Total 40 ml 49 ml Balance 320 ml -49 ml Intake Oral 360 ml Drainage Total 40 ml 49 ml # Voids 4 2 Objective General Appearance: WD/WN Lines, tubes and drains: peripheral HEENT: normocephalic, atraumatic Neck: non-tender, normal alignment Respiratory/Chest: chest wall non-tender, lungs clear Breasts: no masses Cardiovascular/Chest: normal peripheral pulses, normal rate Abdomen: normal bowel sounds, clean dressing Genitourinary/Rectal: normal genital exam, heme negative stool Extremities: normal range of motion, non-tender Skin Exam: normal pigmentation Laboratory Tests 07/18/17 05:15: White Blood Count 9.3, Red Blood Count 3.31L, Hemoglobin 10.1L, Hematocrit 30.0L , Mean Corpuscular Volume 91, Mean Corpuscular Hemoglobin 30.6, Mean Corpuscular Hemoglobin Concent 33.8, Red Cell Distribution Width 12.1, Platelet Count 375, Mean Platelet Volume 5.1L, Neutrophils (%) (Auto) 80.6H, Lymphocytes (%) (Auto) 11.9L, Monocytes (%) (Auto) 6.2, Eosinophils (%) (Auto) 0.6, Basophils (%) (Auto) 0.7, Sodium Level 137, Potassium Level 3.6, Chloride Level 101, Carbon Dioxide Level 30, Anion Gap 6, Blood Urea Nitrogen 8, Creatinine 0.6 , Estimat Glomerular Filtration Rate > 60, Glucose Level 92, Calcium Level 7.9L , Total Bilirubin 0.3, Aspartate Amino Transf (AST/SGOT) 19, Alanine Aminotransferase (ALT/SGPT) 12, Alkaline Phosphatase 102, Total Protein 5.4L, Albumin 1.4L, Globulin 4.0, Albumin/Globulin Ratio 0.3L Current Medications Medications (Trade) Dose Ordered Sig/Kayy Route PRN Reason Start Time Stop Time Status Last Admin Dose Admin Acetaminophen (Tylenol) 650 mg Q6H PRN ORAL Mild Pain/Temp > 100.5 07/14/17 19:00 08/13/17 18:59 07/17/17 20:21 Dextrose (Dextrose 50%) STAT PRN IV Hypoglycemia 07/11/17 20:30 08/10/17 20:29 Finasteride (Proscar) 5 mg DAILY ORAL 07/13/17 09:00 08/12/17 08:59 07/17/17 09:19 Heparin Sodium (Porcine) (Heparin 5000 units/ml) 5,000 units EVERY 12 HOURS SUBQ 07/11/17 21:00 08/02/17 08:59 07/18/17 11:27 Hydromorphone HCl (Dilaudid) 1 mg Q4H PRN IVP Severe Pain (Pain Scale 7-10) 07/17/17 15:15 07/22/17 22:14 07/18/17 09:54 Lansoprazole (Prevacid) 30 mg DAILY ORAL 07/12/17 09:00 08/11/17 08:59 07/17/17 09:19 Lorazepam (Ativan 2mg/ml 1ml) 1 mg Q4H PRN IV For Anxiety 07/15/17 22:15 07/22/17 22:14 Nitroglycerin (Ntg) 0.4 mg Q5MIN X 3 DOSES PRN SL Prn Chest Pain 07/11/17 20:32 08/09/17 20:31 Ondansetron HCl (Zofran) 4 mg Q6H PRN IVP Nausea & Vomiting 07/11/17 20:32 08/10/17 20:31 Piperacillin Sod/ Tazobactam Sod 4.5 gm/Sodium Chloride 110 ml @ 27.5 mls/hr EVERY 8 HOURS IVPB 07/18/17 20:30 07/25/17 20:29 Potassium Chloride (K-Dur) 20 meq DAILY ORAL 07/17/17 09:00 08/16/17 08:59 07/17/17 09:20 Risperidone (RisperDAL) 3 mg BEDTIME ORAL 07/12/17 21:00 08/11/17 20:59 07/17/17 21:31 Temazepam (Restoril) 15 mg HSPRN PRN ORAL Insomnia 07/17/17 21:30 07/24/17 21:29 Tramadol HCl (Ultram) 25 mg Q6H PRN ORAL mod pain 07/17/17 15:15 07/24/17 15:14 07/18/17 18:00 Brenda Martel MD Jul 18, 2017 18:55
[2017-07-18 20:00] VITALS: BP 123/75
[2017-07-18] MEDS: Piperacillin/Tazobactam 4.5 GM in NS 110 ML IVPB SCH (20:22)
--- NOTE | 2017-07-18 22:34 | General Progress Note ---
Assessment/Plan Assessment/Plan Schizophrenia CPT Encephalopathy PLAN: - increase the risperidone to 3 mg at bedtime. Subjective Date patient seen: Jul 17, 2017 Allergies: Coded Allergies: No Known Allergies (Unverified , 01/20/17) Subjective the pt still confused and less agitated. Objective Last 24 Hour Vital Signs Date Time Temp Pulse Resp B/P (MAP) Pulse Ox O2 Delivery O2 Flow Rate FiO2 07/18/17 20:22 100.4 07/18/17 20:00 100.4 105 19 123/75 93 Nasal Cannula 100.4 07/18/17 19:47 93 20 Nasal Cannula 1.0 24 07/18/17 19:47 96 Nasal Cannula 1.0 24 07/18/17 19:47 Nasal Cannula 1.0 24 07/18/17 19:18 97.9 07/18/17 18:00 97.9 07/18/17 16:00 97.9 19 115/65 93 97.9 07/18/17 11:35 97.7 07/18/17 11:17 97.7 96 20 109/64 97 97.7 07/18/17 11:11 97.3 07/18/17 07:52 97.3 94 20 106/69 96 97.3 07/18/17 07:41 Nasal Cannula 2.0 28 07/18/17 07:41 95 Nasal Cannula 2.0 28 07/18/17 07:40 90 20 Nasal Cannula 2.0 28 07/18/17 04:00 97.0 92 20 109/65 96 Nasal Cannula 97.0 07/18/17 00:00 98.2 99 20 111/68 96 Nasal Cannula 98.2 Intake and Output 07/17/17 07/18/17 19:00 07:00 Intake Total 360 ml Output Total 40 ml 49 ml Balance 320 ml -49 ml Intake Oral 360 ml Drainage Total 40 ml 49 ml # Voids 4 2 Laboratory Tests 07/18/17 05:15: White Blood Count 9.3, Red Blood Count 3.31L, Hemoglobin 10.1L, Hematocrit 30.0L , Mean Corpuscular Volume 91, Mean Corpuscular Hemoglobin 30.6, Mean Corpuscular Hemoglobin Concent 33.8, Red Cell Distribution Width 12.1, Platelet Count 375, Mean Platelet Volume 5.1L, Neutrophils (%) (Auto) 80.6H, Lymphocytes (%) (Auto) 11.9L, Monocytes (%) (Auto) 6.2, Eosinophils (%) (Auto) 0.6, Basophils (%) (Auto) 0.7, Sodium Level 137, Potassium Level 3.6, Chloride Level 101, Carbon Dioxide Level 30, Anion Gap 6, Blood Urea Nitrogen 8, Creatinine 0.6 , Estimat Glomerular Filtration Rate > 60, Glucose Level 92, Calcium Level 7.9L , Total Bilirubin 0.3, Aspartate Amino Transf (AST/SGOT) 19, Alanine Aminotransferase (ALT/SGPT) 12, Alkaline Phosphatase 102, Total Protein 5.4L, Albumin 1.4L, Globulin 4.0, Albumin/Globulin Ratio 0.3L Height (Feet): 5 Height (Inches): 9.00 Weight (Pounds): 133 Idalia Montanez M.D. Jul 18, 2017 22:34
[2017-07-19] VITALS (13 sets, daily range): BP systolic 94–119; BP diastolic 59–73
[2017-07-19] MEDS: LORazepam Inj 2mg/ml 1ml IV PRN ×3 (01:46→23:12)
[2017-07-19] MEDS: HYDROmorphone 1mg/ml Carpuject IVP PRN ×5 (03:37→21:51)
[2017-07-19] MEDS: Piperacillin/Tazobactam 4.5 GM in NS 110 ML IVPB SCH ×3 (05:41→21:50)
[2017-07-19 06:53] LABS: BASOPHILS % (AUTO) 1.2 % (0.0-2.0); EOSINOPHILS % (AUTO) 1.4 % (0.0-3.0); HEMATOCRIT 30.3 % (42.0-52.0); HEMOGLOBIN 10.4 G/DL (14.2-18.0); LYMPHOCYTES % (AUTO) 14.8 % (20.0-45.0); MEAN CORPUSCULAR VOLUME 90 FL (80-99); MONOCYTES % (AUTO) 5.8 % (1.0-10.0); NEUTROPHILS % (AUTO) 76.9 % (45.0-75.0); PLATELET COUNT 398 K/UL (150-450); RED BLOOD COUNT 3.36 M/UL (4.70-6.10); RED CELL DISTRIBUTION WIDTH 11.9 % (11.6-14.8); WHITE BLOOD COUNT 8.3 K/UL (4.8-10.8)
[2017-07-19 06:54] LABS: INR 1.1 (0.9-1.1)
[2017-07-19 07:30] LABS: ANION GAP 8 mmol/L (5-15); BLOOD UREA NITROGEN 6 mg/dL (7-18); CALCIUM 7.6 MG/DL (8.5-10.1); CARBON DIOXIDE 29 MMOL/L (21-32); CHLORIDE 100 MMOL/L (98-107); CREATININE 0.6 MG/DL (0.55-1.30); POTASSIUM 3.4 MMOL/L (3.5-5.1); SODIUM 137 MMOL/L (136-145)
[2017-07-19] MEDS: Heparin 5000 units/ml inj SUBQ SCH ×2 (08:42→21:00)
[2017-07-19] MEDS ORDERED: Lidocaine 1% Plain 30 ml INJ PRN (10:30)
--- NOTE | 2017-07-19 10:46 | Pre-Procedure Note/Attestation ---
Pre-Procedure Note/Attestation Complete Prior to Procedure Planned Procedure: not applicable Procedure Narrative: CT guided aspiration and possible drainage of abdominal fluid collection Attestation I attest that I discussed the nature of the procedure; its benefits; risks and complications; and alternatives (and the risks and benefits of such alternatives ), prior to the procedure, with the patient (or the patient's legal member services representative). I attest that, if there was a reasonable possibility of needing a blood transfusion, the patient (or the patient's legal member services representative) was given the [facility] standardized written summary, pursuant to the [place] Blood Safety Act ([place] Health and Safety Code # 1645, as amended). I attest that I re-evaluated the patient just prior to the surgery and that there has been no change in the patient's H&P, except as documented below: REBEL AVERY M.D. Jul 19, 2017 10:46
--- NOTE | 2017-07-19 11:13 | GI Progress Note ---
Assessment/Plan Problems: (1) Psychiatric disorder ICD Codes: F99 - Mental disorder, not otherwise specified SNOMED: 33932157, 959360483 (2) Amphetamine abuse ICD Codes: F15.10 - Other stimulant abuse, uncomplicated SNOMED: 54051247 (3) Opiate dependence ICD Codes: F11.20 - Opioid dependence, uncomplicated SNOMED: 45557816 Qualifiers: Qualified Codes: F11.20 - Opioid dependence, uncomplicated (4) Perforated abdominal viscus SNOMED: 108045244 Status: stable, progressing Status Narrative Discussed with Dr. Castro. Assessment/Plan s/p Exploratory laparotomy, partial bowel resection fu surgical recs IVFs CLD, adv per surgery colostomy care prn transfusions serial imaging prn fu labs Subjective Gastrointestinal/Abdominal: Reports: no symptoms Objective Last 24 Hour Vital Signs Date Time Temp Pulse Resp B/P (MAP) Pulse Ox O2 Delivery O2 Flow Rate FiO2 07/19/17 11:05 111 18 97/59 94 Room Air 07/19/17 11:00 113 18 108/62 93 Room Air 07/19/17 10:55 114 18 109/70 93 Room Air 07/19/17 10:50 111 18 101/61 90 Room Air 07/19/17 10:20 110 18 07/19/17 08:10 96 Room Air 21 07/19/17 08:10 99 18 Room Air 21 07/19/17 08:10 Room Air 21 07/19/17 08:00 97.7 103 20 104/64 95 Room Air 97.7 07/19/17 04:00 98.8 107 22 100/68 94 98.8 07/19/17 00:00 98.2 97 19 119/73 94 Room Air 98.2 07/18/17 22:50 98.2 07/18/17 21:21 98.2 07/18/17 20:22 100.4 07/18/17 20:00 100.4 105 19 123/75 93 Nasal Cannula 100.4 07/18/17 19:47 93 20 Nasal Cannula 1.0 24 07/18/17 19:47 96 Nasal Cannula 1.0 24 07/18/17 19:47 Nasal Cannula 1.0 24 07/18/17 19:18 97.9 07/18/17 18:00 97.9 07/18/17 16:00 97.9 19 115/65 93 97.9 07/18/17 11:35 97.7 07/18/17 11:17 97.7 96 20 109/64 97 97.7 Intake and Output 07/18/17 07/19/17 19:00 07:00 Intake Total 600 ml 147.5 ml Output Total 700 ml 1570 ml Balance -100 ml -1422.5 ml Intake Oral 600 ml 10 ml IV Total 137.5 ml Output Urine Total 300 ml 1150 ml Stool Total 300 ml 330 ml Drainage Total 100 ml 90 ml # Voids 3 3 Laboratory Tests Test 07/19/17 05:20 White Blood Count 8.3 K/UL (4.8-10.8) Red Blood Count 3.36 M/UL (4.70-6.10) L Hemoglobin 10.4 G/DL (14.2-18.0) L Hematocrit 30.3 % (42.0-52.0) L Mean Corpuscular Volume 90 FL (80-99) Mean Corpuscular Hemoglobin 30.9 PG (27.0-31.0) Mean Corpuscular Hemoglobin Concent 34.2 G/DL (32.0-36.0) Red Cell Distribution Width 11.9 % (11.6-14.8) Platelet Count 398 K/UL (150-450) Mean Platelet Volume 5.0 FL (6.5-10.1) L Neutrophils (%) (Auto) 76.9 % (45.0-75.0) H Lymphocytes (%) (Auto) 14.8 % (20.0-45.0) L Monocytes (%) (Auto) 5.8 % (1.0-10.0) Eosinophils (%) (Auto) 1.4 % (0.0-3.0) Basophils (%) (Auto) 1.2 % (0.0-2.0) Prothrombin Time 11.3 SEC (9.30-11.50) Prothromb Time International Ratio 1.1 (0.9-1.1) Activated Partial Thromboplast Time 29 SEC (23-33) Sodium Level 137 MMOL/L (136-145) Potassium Level 3.4 MMOL/L (3.5-5.1) L Chloride Level 100 MMOL/L (98-107) Carbon Dioxide Level 29 MMOL/L (21-32) Anion Gap 8 mmol/L (5-15) Blood Urea Nitrogen 6 mg/dL (7-18) L Creatinine 0.6 MG/DL (0.55-1.30) Estimat Glomerular Filtration Rate > 60 mL/min (>60) Glucose Level 84 MG/DL (74-106) Calcium Level 7.6 MG/DL (8.5-10.1) L Magnesium Level 1.6 MG/DL (1.8-2.4) L C-Reactive Protein, Quantitative 13.7 mg/dL (0.00-0.90) H Height (Feet): 5 Height (Inches): 9.00 Weight (Pounds): 131 General Appearance: WD/WN, no apparent distress, alert, thin Cardiovascular: normal rate Respiratory/Chest: normal breath sounds, no respiratory distress Abdominal Exam: normal bowel sounds, non tender, soft, other - colostomy Extremities: normal range of motion, non-tender Samia Albarran N.P. Jul 19, 2017 11:13
--- NOTE | 2017-07-19 11:22 | Brief Operative Note ---
Immediate Post Operative Note Operative Note Chief Complaint: abdominal abscess Pre-op Diagnosis: abdominal abscess Procedure: CT guided aspiration and drainage LUQ fluid Post-op Diagnosis: same as pre-op Findings: consistent w/pre-op dx studies Surgeon: Jessica AVERY Anesthesia: regional Specimen: yes - 150 ml pus, sent to lab Complications: none Condition: stable Fluids: none Drains: other - 8.5 Turkish pigtail Implant(s) used?: No REBEL AVERY M.D. Jul 19, 2017 11:22
--- NOTE | 2017-07-19 12:05 | General Progress Note ---
Progress Note Progress Note Surgery: patient seen and examined. states he is doing well and is hungry. still asking for pain meds. CT reviewed and had radiological placed drain today. purulent fluid evacuated from drain but still has a lot of fluid as noted on CT with different collections. He has been on broad Abx coverage for some time now, had full washout during prior surgery, and has been improving despite these multiple abscess collections forming. Midline wound with progressively enlarging dehiscence but no evisceration. can being to now some areas that seem to have possible small bowel and some areas with omental coverage. He is afebrile, HD stable, labs okay. given above I have discussed considerations for re-exploration, washout, drain placement, and midline closure with retention sutures with patient. we discussed risks, benefits, and possible alternatives such as not operating. He expresses understanding and states that he is not sure if he would want another surgery. I explained risks of not operating and he understand and states he wants some time to consider it. given he is stable I will given him some time to process options. will follow with recs okay for diet. cont abx. will await patients decision. Gilberto Michelle Jul 19, 2017 12:05
--- NOTE | 2017-07-19 13:00 | Nephrology Progress Note ---
Assessment/Plan Problem List: (1) ARF (acute renal failure) (2) UTI (urinary tract infection) (3) Psychiatric disorder (4) Acute abdomen Assessment Status: WBCs wnl had multi abdominal drains acute renal failure- extended left colectomy due to perf transverse colostomy creation Plan Plan: per charles Mag and K supplement DC horan DC IV PT advance diet Post op ( OP 07/08/17) Horan- 2D echo normal Ej Fx Albumin bollous monitor renal parameters K and Phos and Mag supplement as needed Subjective ROS Limited/Unobtainable: No Constitutional: Reports: malaise Objective Objective Last 24 Hour Vital Signs Date Time Temp Pulse Resp B/P (MAP) Pulse Ox O2 Delivery O2 Flow Rate FiO2 07/19/17 11:20 110 18 94/59 93 Room Air 07/19/17 11:15 114 18 99/64 93 Room Air 07/19/17 11:10 110 18 96/60 93 Room Air 07/19/17 11:05 111 18 97/59 94 Room Air 07/19/17 11:00 113 18 108/62 93 Room Air 07/19/17 10:55 114 18 109/70 93 Room Air 07/19/17 10:50 111 18 101/61 90 Room Air 07/19/17 10:20 110 18 07/19/17 08:10 96 Room Air 21 07/19/17 08:10 99 18 Room Air 21 07/19/17 08:10 Room Air 21 07/19/17 08:00 97.7 103 20 104/64 95 Room Air 97.7 07/19/17 04:00 98.8 107 22 100/68 94 98.8 07/19/17 00:00 98.2 97 19 119/73 94 Room Air 98.2 07/18/17 22:50 98.2 07/18/17 21:21 98.2 07/18/17 20:22 100.4 07/18/17 20:00 100.4 105 19 123/75 93 Nasal Cannula 100.4 07/18/17 19:47 93 20 Nasal Cannula 1.0 24 07/18/17 19:47 96 Nasal Cannula 1.0 24 07/18/17 19:47 Nasal Cannula 1.0 24 07/18/17 19:18 97.9 07/18/17 18:00 97.9 07/18/17 16:00 97.9 19 115/65 93 97.9 Intake and Output 07/18/17 07/19/17 19:00 07:00 Intake Total 600 ml 147.5 ml Output Total 700 ml 1570 ml Balance -100 ml -1422.5 ml Intake Oral 600 ml 10 ml IV Total 137.5 ml Output Urine Total 300 ml 1150 ml Stool Total 300 ml 330 ml Drainage Total 100 ml 90 ml # Voids 3 3 Laboratory Tests 07/19/17 05:20: White Blood Count 8.3, Red Blood Count 3.36L, Hemoglobin 10.4L, Hematocrit 30.3L , Mean Corpuscular Volume 90, Mean Corpuscular Hemoglobin 30.9, Mean Corpuscular Hemoglobin Concent 34.2, Red Cell Distribution Width 11.9, Platelet Count 398, Mean Platelet Volume 5.0L, Neutrophils (%) (Auto) 76.9H, Lymphocytes (%) (Auto) 14.8L, Monocytes (%) (Auto) 5.8, Eosinophils (%) (Auto) 1.4, Basophils (%) (Auto) 1.2, Prothrombin Time 11.3, Prothromb Time International Ratio 1.1, Activated Partial Thromboplast Time 29, Sodium Level 137, Potassium Level 3.4L, Chloride Level 100, Carbon Dioxide Level 29, Anion Gap 8, Blood Urea Nitrogen 6L, Creatinine 0.6, Estimat Glomerular Filtration Rate > 60, Glucose Level 84, Calcium Level 7.6L, Magnesium Level 1.6L, C-Reactive Protein, Quantitative 13.7H Height (Feet): 5 Height (Inches): 9.00 Weight (Pounds): 131 General Appearance: no apparent distress Abdomen: distended Objective no other change NOEMY MARK Jul 19, 2017 12:59
--- NOTE | 2017-07-19 14:50 | Anethesia Preoperative Eval ---
Anesthesia Pre-op PMH/ROS General Date of Evaluation: Jul 19, 2017 Time of Evaluation: 15:22 Anesthesiologist: Amber ASA Score: ASA 3 Mallampati Score Class I : Soft palate, uvula, fauces, pillars visible Class II: Soft palate, uvula, fauces visible Class III: Soft palate, base of uvula visible Class IV: Only hard plate visible Mallampati Classification: Class III Surgeon: Viviana Diagnosis: Abd Pain Surgical Procedure: Exploratory Laparotomy, Abdominal Washout Anesthesia History: none Social History: current smoker Family History: no anesthesia problems Allergies: Coded Allergies: No Known Allergies (Unverified , 01/20/17) Medications: see eMAR Past Medical History Cardiovascular: Reports: HTN, CAD - Ang[place], [place] Pulmonary: Reports: asthma, COPD, other - Bronchitis, Acute Respiratory Failure Gastrointestinal/Genitourinary: Reports: GERD, other - ARF, Perforated Viscus Neurologic/Psychiatric: Reports: depression/anxiety, other - Schizophrenia, paranoid PSxH Narrative: Partial Bowel Resection Anesthesia Pre-op Phys. Exam Physician Exam Last Vital Signs Date Time Temp Pulse Resp B/P (MAP) Pulse Ox O2 Delivery O2 Flow Rate FiO2 07/19/17 11:20 110 18 94/59 93 Room Air 07/19/17 08:10 21 07/19/17 08:00 97.7 97.7 07/18/17 19:47 1.0 Constitutional: NAD Neurologic: CN 2-12 intact Cardiovascular: RRR Respiratory: CTA Gastrointestinal: S/NT/ND Airway Exam Mallampati Score: Class III MO: full ROM: limited Teeth: missing, intact Anesthesia Pre-op A/P Labs Hematology Test 07/19/17 05:20 White Blood Count 8.3 K/UL (4.8-10.8) Red Blood Count 3.36 M/UL (4.70-6.10) L Hemoglobin 10.4 G/DL (14.2-18.0) L Hematocrit 30.3 % (42.0-52.0) L Mean Corpuscular Volume 90 FL (80-99) Mean Corpuscular Hemoglobin 30.9 PG (27.0-31.0) Mean Corpuscular Hemoglobin Concent 34.2 G/DL (32.0-36.0) Red Cell Distribution Width 11.9 % (11.6-14.8) Platelet Count 398 K/UL (150-450) Mean Platelet Volume 5.0 FL (6.5-10.1) L Neutrophils (%) (Auto) 76.9 % (45.0-75.0) H Lymphocytes (%) (Auto) 14.8 % (20.0-45.0) L Monocytes (%) (Auto) 5.8 % (1.0-10.0) Eosinophils (%) (Auto) 1.4 % (0.0-3.0) Basophils (%) (Auto) 1.2 % (0.0-2.0) Coagulation Test 07/19/17 05:20 Prothrombin Time 11.3 SEC (9.30-11.50) Prothromb Time International Ratio 1.1 (0.9-1.1) Activated Partial Thromboplast Time 29 SEC (23-33) Chemistry Test 07/19/17 05:20 Sodium Level 137 MMOL/L (136-145) Potassium Level 3.4 MMOL/L (3.5-5.1) L Chloride Level 100 MMOL/L (98-107) Carbon Dioxide Level 29 MMOL/L (21-32) Anion Gap 8 mmol/L (5-15) Blood Urea Nitrogen 6 mg/dL (7-18) L Creatinine 0.6 MG/DL (0.55-1.30) Estimat Glomerular Filtration Rate > 60 mL/min (>60) Glucose Level 84 MG/DL (74-106) Calcium Level 7.6 MG/DL (8.5-10.1) L Magnesium Level 1.6 MG/DL (1.8-2.4) L C-Reactive Protein, Quantitative 13.7 mg/dL (0.00-0.90) H Risk Assessment & Plan Assessment: ASA 3 Plan: GA Status Change Before Surgery: No Pre-Antibiotics Drug: TBA Given Within 1 Hr of Incision: Yes Sheldon Clark MD Jul 19, 2017 14:50
--- NOTE | 2017-07-19 15:17 | Pulmonology Progress Note ---
Assessment/Plan Problems: (1) Perforated abdominal viscus (2) ARF (acute renal failure) (3) Psychosis (4) Acute constipation (5) Amphetamine abuse Assessment/Plan having surgery tomorrow iv fluids continue anbx f/u clinically pain management med/surg check electrolytes Subjective ROS Limited/Unobtainable: No Allergies: Coded Allergies: No Known Allergies (Unverified , 01/20/17) Objective Last 24 Hour Vital Signs Date Time Temp Pulse Resp B/P (MAP) Pulse Ox O2 Delivery O2 Flow Rate FiO2 07/19/17 11:20 110 18 94/59 93 Room Air 07/19/17 11:15 114 18 99/64 93 Room Air 07/19/17 11:10 110 18 96/60 93 Room Air 07/19/17 11:05 111 18 97/59 94 Room Air 07/19/17 11:00 113 18 108/62 93 Room Air 07/19/17 10:55 114 18 109/70 93 Room Air 07/19/17 10:50 111 18 101/61 90 Room Air 07/19/17 10:20 110 18 07/19/17 08:10 96 Room Air 21 07/19/17 08:10 99 18 Room Air 21 07/19/17 08:10 Room Air 21 07/19/17 08:00 97.7 103 20 104/64 95 Room Air 97.7 07/19/17 04:00 98.8 107 22 100/68 94 98.8 07/19/17 00:00 98.2 97 19 119/73 94 Room Air 98.2 07/18/17 22:50 98.2 07/18/17 21:21 98.2 07/18/17 20:22 100.4 07/18/17 20:00 100.4 105 19 123/75 93 Nasal Cannula 100.4 07/18/17 19:47 93 20 Nasal Cannula 1.0 24 07/18/17 19:47 96 Nasal Cannula 1.0 24 07/18/17 19:47 Nasal Cannula 1.0 24 07/18/17 19:18 97.9 07/18/17 18:00 97.9 07/18/17 16:00 97.9 19 115/65 93 97.9 Intake and Output 07/18/17 07/19/17 19:00 07:00 Intake Total 600 ml 147.5 ml Output Total 700 ml 1570 ml Balance -100 ml -1422.5 ml Intake Oral 600 ml 10 ml IV Total 137.5 ml Output Urine Total 300 ml 1150 ml Stool Total 300 ml 330 ml Drainage Total 100 ml 90 ml # Voids 3 3 Objective General Appearance: WD/WN Lines, tubes and drains: peripheral HEENT: normocephalic, atraumatic Neck: non-tender, normal alignment Respiratory/Chest: chest wall non-tender, lungs clear Breasts: no masses Cardiovascular/Chest: normal peripheral pulses, normal rate Abdomen: normal bowel sounds, clean dressing Genitourinary/Rectal: normal genital exam, heme negative stool Extremities: normal range of motion, non-tender Skin Exam: normal pigmentation Laboratory Tests 07/19/17 05:20: White Blood Count 8.3, Red Blood Count 3.36L, Hemoglobin 10.4L, Hematocrit 30.3L , Mean Corpuscular Volume 90, Mean Corpuscular Hemoglobin 30.9, Mean Corpuscular Hemoglobin Concent 34.2, Red Cell Distribution Width 11.9, Platelet Count 398, Mean Platelet Volume 5.0L, Neutrophils (%) (Auto) 76.9H, Lymphocytes (%) (Auto) 14.8L, Monocytes (%) (Auto) 5.8, Eosinophils (%) (Auto) 1.4, Basophils (%) (Auto) 1.2, Prothrombin Time 11.3, Prothromb Time International Ratio 1.1, Activated Partial Thromboplast Time 29, Sodium Level 137, Potassium Level 3.4L, Chloride Level 100, Carbon Dioxide Level 29, Anion Gap 8, Blood Urea Nitrogen 6L, Creatinine 0.6, Estimat Glomerular Filtration Rate > 60, Glucose Level 84, Calcium Level 7.6L, Magnesium Level 1.6L, C-Reactive Protein, Quantitative 13.7H Current Medications Medications (Trade) Dose Ordered Sig/Kayy Route PRN Reason Start Time Stop Time Status Last Admin Dose Admin Acetaminophen (Tylenol) 650 mg Q6H PRN ORAL Mild Pain/Temp > 100.5 07/14/17 19:00 08/13/17 18:59 07/18/17 20:22 Dextrose (Dextrose 50%) STAT PRN IV Hypoglycemia 07/11/17 20:30 08/10/17 20:29 Finasteride (Proscar) 5 mg DAILY ORAL 07/13/17 09:00 08/12/17 08:59 07/19/17 08:42 Heparin Sodium (Porcine) (Heparin 5000 units/ml) 5,000 units EVERY 12 HOURS SUBQ 07/11/17 21:00 08/02/17 08:59 07/18/17 11:27 Hydromorphone HCl (Dilaudid) 1 mg Q4H PRN IVP Severe Pain (Pain Scale 7-10) 07/17/17 15:15 07/22/17 22:14 07/19/17 12:55 Lactated Ringer's 1,000 ml @ 100 mls/hr Q10H IV 07/19/17 14:30 08/18/17 14:29 Lansoprazole (Prevacid) 30 mg DAILY ORAL 07/12/17 09:00 08/11/17 08:59 07/19/17 08:42 Lidocaine HCl (Xylocaine 1% 30ml) 30 ml ONCE PRN INJ FOR RADIOLOGY 07/19/17 10:30 07/20/17 23:59 Lorazepam (Ativan 2mg/ml 1ml) 1 mg Q4H PRN IV For Anxiety 07/15/17 22:15 07/22/17 22:14 07/19/17 10:49 Nitroglycerin (Ntg) 0.4 mg Q5MIN X 3 DOSES PRN SL Prn Chest Pain 07/11/17 20:32 08/09/17 20:31 Ondansetron HCl (Zofran) 4 mg Q6H PRN IVP Nausea & Vomiting 07/11/17 20:32 08/10/17 20:31 Piperacillin Sod/ Tazobactam Sod 4.5 gm/Sodium Chloride 110 ml @ 27.5 mls/hr EVERY 8 HOURS IVPB 07/18/17 20:30 07/25/17 20:29 07/19/17 05:41 Potassium Chloride (K-Dur) 40 meq DAILY ORAL 07/20/17 09:00 08/19/17 08:59 Risperidone (RisperDAL) 3 mg BEDTIME ORAL 07/12/17 21:00 08/11/17 20:59 07/18/17 20:22 Temazepam (Restoril) 15 mg HSPRN PRN ORAL Insomnia 07/17/17 21:30 07/24/17 21:29 Tramadol HCl (Ultram) 25 mg Q6H PRN ORAL mod pain 07/17/17 15:15 07/24/17 15:14 07/18/17 18:00 Brenda Martel MD Jul 19, 2017 15:17
--- NOTE | 2017-07-19 15:44 | Diagnostic Imaging Report ---
Indication: Reason For Exam: ABSCESS Technique: Prior imaging studies reviewed. Informed consent obtained prior considerable procedure. Procedure timeout performed. Localizing acquisitions obtained through the upper abdomen. And puncture site sterilely prepped and draped. Local anesthesia with 1% lidocaine. Under CT guidance, a 21-gauge AccuStick needle was inserted into the left upper quadrant peritoneal collection. This was inserted a 0.018 guidewire, over was inserted the 6 [place] AccuStick assembly. The dilator and stiffener were removed. Small amount of pus was aspirated. 0.035 guidewire was inserted, followed by introduction of a 8.5 [place] pigtail drainage catheter. The pigtail was formed. The catheter was forcibly aspirated, yielding 150 mL of pus. Specimen was sent to the lab for microbial analysis All maneuvers were followed by confirmatory CT images. Follow-up CT performed, demonstrating decreased size of the left upper quadrant collection, but considerable residual. Note pre-existing surgical drainage catheter within the collection. Total dose length product 1899 mGycm. CTDIvol(s) 10, 11 x 10 mGy. Radiation dose was minimized using automated exposure control Comparison: 07/18/[address] Findings: As above Impression: Aspiration and drainage of left upper quadrant collection, as described, yielding 150 mL of carin pus. Note that the collection could only be partially evacuated, however, despite confirmation of apparent adequate position of the drain. This may indicate high viscosity of the contents Procedure and findings previously discussed by phone with Dr. Michelle The CT scanner at [facility] is accredited by the [employer] and the scans are performed using protocols designed to limit radiation exposure to as low as reasonably achievable to attain images of sufficient resolution adequate for diagnostic evaluation.
--- NOTE | 2017-07-19 17:03 | Infectious Diseases Prog Note ---
Assessment/Plan Assessment/Plan ASSESSMENT: The patient is a 46-year-old male with; Bowel perf w/ development of 2 Abscess (subphrenic and pelvic) Cx: E coli( ESBL) and ENTEROCOCCUS AVIUM (turcios S) and Bact Fragilis - Repeat CT with persistent LUQ fluid collection and 2 other fluid collections; former suspect still residual abscess; latter 2 possible sterile vs infected -s/p CT guided drainage APOLLO fluid collection 07/19: Aspiration and drainage of left upper quadrant collection, yielding 150 mL of carin pus. Note that the collection could only be partially evacuated, however, despite confirmation of apparent adequate position of the drain.This may indicate high viscosity of the contents; cx pending s/p ex lap with left colectomy and transverse colostomy for perforated left colon, evacuation of intrabd abscess, abd washout w/ drain placement 07/09 -CT abd/p w/ 07/18: Postsurgical changes, as described, status post transverse colectomy, Jazz procedure, and placement of multiple surgical drains. Left upper quadrant intraperitoneal fluid collection, despite the presence of a surgical drain in the center of the collection. The presence of gas bubbles within rather than floating nondependently in the collection indicate that this fluid may be viscous. 2 other significant intraperitoneal collections,which do not appear to communicate, possibly loculated. Given presence of somewhat thick enhancing rim surrounding all of these, infected collections are certainly possible ( left paracolic gutter 5.8 cmx 4.3 cm x 8.3cm and R paracolic gutter, medial and inferior to tip R hepatic lobe 8cm x 6.4cm x8cm). Other than the gas within the left upper quadrant collection, previously demonstrated pneumoperitoneum has largely resolved. Left upper quadrant thick walled small bowel loops. Possibly reactive due to adjacent inflammation, enteritis is also possible. No evidence of bowel obstruction. Gallbladder wall edema versus pericholecystic fluid. -OR findings: The omentum was significantly thickened and adhesed to the small bowel and into the left lower quadrant. There was significant inflammatory process throughout the abdomen including a thickening of almost the entire peritoneal lining. The proximal portion of the jejunum was significantly thickened and had a rind of inflammatory infectious tissue on it. left transverse and descending colon, there was significant amount of thickening and significant disease process with some areas of mild ischemia noted and in the descending colon around the descending and sigmoid junction, there was a gross perforation with grossspillage of bowel contents noted in the area. there was a fluid collection/pelvic abscess, which was evacuated. There was a fluid collection in the right upper quadrant around the liver, which was evacuated and a large left upper quadrant subphrenic abscess with significant tissue rind and thickening around the stomach, spleen, peritoneum, and diaphragm in that location. CT : Evidence of perforation of hollow viscus with extensive amount of free air in the upper abdomen and some free fluid is well. Fever/Leukocytosis, recurrent- improving- 2ry to above -leukocytosis resolved -Bcx NTD Elevated ALP -Abd US: Negative for gallstones. There is borderline gallbladder wall thickening, however. Most likely, this is reactive secondary to surrounding inflammation related to recent bowel perforation and surgery for such. However, the possibility of acalculous acute cholecystitis should be considered, and consideration for nuclear medicine hepatobiliary scanning if there is high clinical suspicion history of diarrhea, SP RAMSEY: Improved HTN COPD/asthma. Smoker. History of chronic constipation. Osteoarthritis. ? CAD/OR, hx PLAN: -Continue IV Zosyn #9 (abx d#4 for enterococcal coverage) for intraabdominal abscess; will need 2-6 weeks pending resolution of collections --3/ SP Ertapenem, PO Amoxicillin #3 --3/12 SP Cefepime #2 --3/8 SP Zosyn d# 6 --SP Rocephin d# 5 -f/u CT guided drain cx -Appreciate surgical input monitor chest x-ray. Nephrology, following Monitor ( Blood ) Cx Discussed with RN Subjective Allergies: Coded Allergies: No Known Allergies (Unverified , 01/20/17) Subjective low grade fever last night, Tm 100.4 no leukocytosis Bcx NTD s/p CT guided drainage for LUQ fluid collections Objective Vital Signs Last 24 Hour Vital Signs Date Time Temp Pulse Resp B/P (MAP) Pulse Ox O2 Delivery O2 Flow Rate FiO2 07/19/17 16:24 98.6 109 19 119/70 98 Room Air 98.6 07/19/17 11:20 110 18 94/59 93 Room Air 07/19/17 11:15 114 18 99/64 93 Room Air 07/19/17 11:10 110 18 96/60 93 Room Air 07/19/17 11:05 111 18 97/59 94 Room Air 07/19/17 11:00 113 18 108/62 93 Room Air 07/19/17 10:55 114 18 109/70 93 Room Air 07/19/17 10:50 111 18 101/61 90 Room Air 07/19/17 10:20 110 18 07/19/17 08:10 96 Room Air 21 07/19/17 08:10 99 18 Room Air 21 07/19/17 08:10 Room Air 21 07/19/17 08:00 97.7 103 20 104/64 95 Room Air 97.7 07/19/17 04:00 98.8 107 22 100/68 94 98.8 07/19/17 00:00 98.2 97 19 119/73 94 Room Air 98.2 07/18/17 22:50 98.2 07/18/17 21:21 98.2 07/18/17 20:22 100.4 07/18/17 20:00 100.4 105 19 123/75 93 Nasal Cannula 100.4 07/18/17 19:47 93 20 Nasal Cannula 1.0 24 07/18/17 19:47 96 Nasal Cannula 1.0 24 07/18/17 19:47 Nasal Cannula 1.0 24 07/18/17 19:18 97.9 07/18/17 18:00 97.9 Height (Feet): 5 Height (Inches): 9.00 Weight (Pounds): 131 Objective General Appearance: WD/WN, no apparent distress, alert, thin Cardiovascular: normal rate Respiratory/Chest: normal breath sounds, no respiratory distress Abdominal Exam: normal bowel sounds, non tender, soft, other - colostomy Extremities: non-tender Laboratory Tests Test 07/19/17 05:20 White Blood Count 8.3 K/UL (4.8-10.8) Red Blood Count 3.36 M/UL (4.70-6.10) L Hemoglobin 10.4 G/DL (14.2-18.0) L Hematocrit 30.3 % (42.0-52.0) L Mean Corpuscular Volume 90 FL (80-99) Mean Corpuscular Hemoglobin 30.9 PG (27.0-31.0) Mean Corpuscular Hemoglobin Concent 34.2 G/DL (32.0-36.0) Red Cell Distribution Width 11.9 % (11.6-14.8) Platelet Count 398 K/UL (150-450) Mean Platelet Volume 5.0 FL (6.5-10.1) L Neutrophils (%) (Auto) 76.9 % (45.0-75.0) H Lymphocytes (%) (Auto) 14.8 % (20.0-45.0) L Monocytes (%) (Auto) 5.8 % (1.0-10.0) Eosinophils (%) (Auto) 1.4 % (0.0-3.0) Basophils (%) (Auto) 1.2 % (0.0-2.0) Prothrombin Time 11.3 SEC (9.30-11.50) Prothromb Time International Ratio 1.1 (0.9-1.1) Activated Partial Thromboplast Time 29 SEC (23-33) Sodium Level 137 MMOL/L (136-145) Potassium Level 3.4 MMOL/L (3.5-5.1) L Chloride Level 100 MMOL/L (98-107) Carbon Dioxide Level 29 MMOL/L (21-32) Anion Gap 8 mmol/L (5-15) Blood Urea Nitrogen 6 mg/dL (7-18) L Creatinine 0.6 MG/DL (0.55-1.30) Estimat Glomerular Filtration Rate > 60 mL/min (>60) Glucose Level 84 MG/DL (74-106) Calcium Level 7.6 MG/DL (8.5-10.1) L Magnesium Level 1.6 MG/DL (1.8-2.4) L C-Reactive Protein, Quantitative 13.7 mg/dL (0.00-0.90) H Current Medications Medications (Trade) Dose Ordered Sig/Kayy Route PRN Reason Start Time Stop Time Status Last Admin Dose Admin Acetaminophen (Tylenol) 650 mg Q6H PRN ORAL Mild Pain/Temp > 100.5 07/14/17 19:00 08/13/17 18:59 07/18/17 20:22 Dextrose (Dextrose 50%) STAT PRN IV Hypoglycemia 07/11/17 20:30 08/10/17 20:29 Finasteride (Proscar) 5 mg DAILY ORAL 07/13/17 09:00 08/12/17 08:59 07/19/17 08:42 Heparin Sodium (Porcine) (Heparin 5000 units/ml) 5,000 units EVERY 12 HOURS SUBQ 07/11/17 21:00 08/02/17 08:59 07/18/17 11:27 Hydromorphone HCl (Dilaudid) 1 mg Q4H PRN IVP Severe Pain (Pain Scale 7-10) 07/17/17 15:15 07/22/17 22:14 07/19/17 12:55 Lactated Ringer's 1,000 ml @ 100 mls/hr Q10H IV 07/19/17 14:30 08/18/17 14:29 Lansoprazole (Prevacid) 30 mg DAILY ORAL 07/12/17 09:00 08/11/17 08:59 07/19/17 08:42 Lidocaine HCl (Xylocaine 1% 30ml) 30 ml ONCE PRN INJ FOR RADIOLOGY 07/19/17 10:30 07/20/17 23:59 Lorazepam (Ativan 2mg/ml 1ml) 1 mg Q4H PRN IV For Anxiety 07/15/17 22:15 07/22/17 22:14 07/19/17 10:49 Nitroglycerin (Ntg) 0.4 mg Q5MIN X 3 DOSES PRN SL Prn Chest Pain 07/11/17 20:32 08/09/17 20:31 Ondansetron HCl (Zofran) 4 mg Q6H PRN IVP Nausea & Vomiting 07/11/17 20:32 08/10/17 20:31 Piperacillin Sod/ Tazobactam Sod 4.5 gm/Sodium Chloride 110 ml @ 27.5 mls/hr EVERY 8 HOURS IVPB 07/18/17 20:30 07/25/17 20:29 07/19/17 15:22 Potassium Chloride (K-Dur) 40 meq DAILY ORAL 07/20/17 09:00 08/19/17 08:59 Risperidone (RisperDAL) 3 mg BEDTIME ORAL 07/12/17 21:00 08/11/17 20:59 07/18/17 20:22 Temazepam (Restoril) 15 mg HSPRN PRN ORAL Insomnia 07/17/17 21:30 07/24/17 21:29 Tramadol HCl (Ultram) 25 mg Q6H PRN ORAL mod pain 07/17/17 15:15 07/24/17 15:14 07/18/17 18:00 Chhaya Menendez M.D. Jul 19, 2017 17:03
[2017-07-19] MEDS: LR 1000ml 1,000 ML IV SCH (17:37)
--- NOTE | 2017-07-19 22:51 | General Progress Note ---
Assessment/Plan Assessment/Plan Schizophrenia CPT Encephalopathy PLAN: - increase the risperidone to 3 mg at bedtime. Subjective Date patient seen: Jul 19, 2017 Neurologic/Psychiatric: Reports: anxiety, depressed, emotional problems Allergies: Coded Allergies: No Known Allergies (Unverified , 01/20/17) Subjective the pt still confused and less agitated. Objective Last 24 Hour Vital Signs Date Time Temp Pulse Resp B/P (MAP) Pulse Ox O2 Delivery O2 Flow Rate FiO2 07/19/17 20:00 98.4 111 18 116/71 94 Room Air 98.4 07/19/17 19:30 94 Room Air 21 07/19/17 19:30 105 18 Room Air 21 07/19/17 19:30 Room Air 21 07/19/17 16:24 98.6 109 19 119/70 98 Room Air 98.6 07/19/17 11:20 110 18 94/59 93 Room Air 07/19/17 11:15 114 18 99/64 93 Room Air 07/19/17 11:10 110 18 96/60 93 Room Air 07/19/17 11:05 111 18 97/59 94 Room Air 07/19/17 11:00 113 18 108/62 93 Room Air 07/19/17 10:55 114 18 109/70 93 Room Air 07/19/17 10:50 111 18 101/61 90 Room Air 07/19/17 10:20 110 18 07/19/17 08:10 96 Room Air 21 07/19/17 08:10 99 18 Room Air 21 07/19/17 08:10 Room Air 21 07/19/17 08:00 97.7 103 20 104/64 95 Room Air 97.7 07/19/17 04:00 98.8 107 22 100/68 94 98.8 07/19/17 00:00 98.2 97 19 119/73 94 Room Air 98.2 Intake and Output 07/18/17 07/19/17 19:00 07:00 Intake Total 600 ml 147.5 ml Output Total 700 ml 1570 ml Balance -100 ml -1422.5 ml Intake Oral 600 ml 10 ml IV Total 137.5 ml Output Urine Total 300 ml 1150 ml Stool Total 300 ml 330 ml Drainage Total 100 ml 90 ml # Voids 3 3 Laboratory Tests 07/19/17 05:20: White Blood Count 8.3, Red Blood Count 3.36L, Hemoglobin 10.4L, Hematocrit 30.3L , Mean Corpuscular Volume 90, Mean Corpuscular Hemoglobin 30.9, Mean Corpuscular Hemoglobin Concent 34.2, Red Cell Distribution Width 11.9, Platelet Count 398, Mean Platelet Volume 5.0L, Neutrophils (%) (Auto) 76.9H, Lymphocytes (%) (Auto) 14.8L, Monocytes (%) (Auto) 5.8, Eosinophils (%) (Auto) 1.4, Basophils (%) (Auto) 1.2, Prothrombin Time 11.3, Prothromb Time International Ratio 1.1, Activated Partial Thromboplast Time 29, Sodium Level 137, Potassium Level 3.4L, Chloride Level 100, Carbon Dioxide Level 29, Anion Gap 8, Blood Urea Nitrogen 6L, Creatinine 0.6, Estimat Glomerular Filtration Rate > 60, Glucose Level 84, Calcium Level 7.6L, Magnesium Level 1.6L, C-Reactive Protein, Quantitative 13.7H Height (Feet): 5 Height (Inches): 9.00 Weight (Pounds): 131 General Appearance: no apparent distress, alert, confused Idalia Montanez M.D. Jul 19, 2017 22:51
[2017-07-20] VITALS (19 sets, daily range): BP systolic 104–124; BP diastolic 59–86
[2017-07-20] MEDS: LR 1000ml 1,000 ML IV SCH ×2 (00:34→10:30)
[2017-07-20] MEDS: HYDROmorphone 1mg/ml Carpuject IVP PRN ×2 (01:52→05:56)
[2017-07-20] MEDS: Piperacillin/Tazobactam 4.5 GM in NS 110 ML IVPB SCH ×3 (05:08→21:43)
[2017-07-20 06:42] LABS: BASOPHILS % (AUTO) 1.9 % (0.0-2.0); EOSINOPHILS % (AUTO) 0.8 % (0.0-3.0); HEMATOCRIT 29.9 % (42.0-52.0); HEMOGLOBIN 10.4 G/DL (14.2-18.0); MEAN CORPUSCULAR VOLUME 89 FL (80-99); NEUTROPHILS % (AUTO) 78.4 % (45.0-75.0); PLATELET COUNT 416 K/UL (150-450); RED BLOOD COUNT 3.34 M/UL (4.70-6.10); RED CELL DISTRIBUTION WIDTH 11.9 % (11.6-14.8); WHITE BLOOD COUNT 7.7 K/UL (4.8-10.8)
[2017-07-20 06:45] LABS: ALANINE AMINOTRANSFERASE 12 U/L (12-78); ALBUMIN 1.5 G/DL (3.4-5.0); ALBUMIN/GLOBULIN RATIO 0.4 (1.0-2.7); ALKALINE PHOSPHATASE 95 U/L (46-116); ANION GAP 6 mmol/L (5-15); ASPARTATE AMINO TRANSFERASE 16 U/L (15-37); BILIRUBIN,TOTAL 0.4 MG/DL (0.2-1.0); BLOOD UREA NITROGEN 5 mg/dL (7-18); CALCIUM 7.9 MG/DL (8.5-10.1); CARBON DIOXIDE 29 MMOL/L (21-32); CHLORIDE 101 MMOL/L (98-107); CREATININE 0.6 MG/DL (0.55-1.30); POTASSIUM 3.6 MMOL/L (3.5-5.1); SODIUM 136 MMOL/L (136-145)
[2017-07-20 06:57] LABS: INR 1.1 (0.9-1.1)
[2017-07-20 07:26] LABS: PHOSPHORUS 3.9 MG/DL (2.5-4.9)
[2017-07-20] MEDS ORDERED: Bacitracin 50000 Units Vial ONE (07:52)
[2017-07-20] MEDS ORDERED: NeoSporin Gu Irrig 1ml Amp IRRIG ONE (07:52)
[2017-07-20] MEDS ORDERED: LR 1000ml ONE (08:00)
[2017-07-20] MEDS ORDERED: Sterile Water Irrig 1000ml IRRIG ONE (08:00)
[2017-07-20] MEDS ORDERED: Propofol 200mg/20ml IV ONE ×2 (08:00→08:23)
[2017-07-20] MEDS ORDERED: fentaNYL 100 mcg/2 mL IV ONE (08:00)
[2017-07-20] MEDS ORDERED: Zemuron 50mg/5ml Inj IV ONE (08:00)
[2017-07-20] MEDS ORDERED: NS Irrig 1000ml ONE (08:00)
[2017-07-20] MEDS ORDERED: Morphine Sulfate 10mg/ml Inj ONE (08:00)
[2017-07-20] MEDS ORDERED: Glycopyrrolate 0.2mg/ml 1ml Vial ONE (08:00)
[2017-07-20] MEDS: Heparin 5000 units/ml inj SUBQ SCH ×2 (08:18→21:41)
[2017-07-20] MEDS ORDERED: NS Irrig 1000ml IRRIG ONE (09:32)
--- NOTE | 2017-07-20 09:37 | Pre-Procedure Note/Attestation ---
Pre-Procedure Note/Attestation Complete Prior to Procedure Planned Procedure: not applicable Procedure Narrative: exploratory laparotomy, abdominal washout, possible bowel resection, possible ostomy revision Indications for Procedure Pre-Operative Diagnosis: intraabdominal abscess Attestation I attest that I discussed the nature of the procedure; its benefits; risks and complications; and alternatives (and the risks and benefits of such alternatives ), prior to the procedure, with the patient (or the patient's legal agency service representative). I attest that, if there was a reasonable possibility of needing a blood transfusion, the patient (or the patient's legal agency service representative) was given the [facility] standardized written summary, pursuant to the Josse Trudi Blood Safety Act ([place] Health and Safety Code # 1645, as amended). I attest that I re-evaluated the patient just prior to the surgery and that there has been no change in the patient's H&P, except as documented below: Gilberto Michelle Jul 20, 2017 09:37
[2017-07-20] MEDS ORDERED: LR 1000ml 1,000 ML IVLG SCH (10:35)
--- NOTE | 2017-07-20 10:40 | GI Progress Note ---
Assessment/Plan Problems: (1) Psychiatric disorder ICD Codes: F99 - Mental disorder, not otherwise specified SNOMED: 58816264, [id number] (2) Amphetamine abuse ICD Codes: F15.10 - Other stimulant abuse, uncomplicated SNOMED: 91859535 (3) Opiate dependence ICD Codes: F11.20 - Opioid dependence, uncomplicated SNOMED: 89586249 Qualifiers: Qualified Codes: F11.20 - Opioid dependence, uncomplicated (4) Perforated abdominal viscus SNOMED: 866373665 Status: doing well, stable, progressing Status Narrative Discussed with Dr. Castro. Assessment/Plan s/p Exploratory laparotomy, partial bowel resection fu surgical recs IVFs diet adv per surgery colostomy care prn transfusions serial imaging prn fu labs Subjective Subjective doing well Objective Last 24 Hour Vital Signs Date Time Temp Pulse Resp B/P (MAP) Pulse Ox O2 Delivery O2 Flow Rate FiO2 07/20/17 09:49 Room Air 21 07/20/17 09:49 96 Room Air 21 07/20/17 04:00 Nasal Cannula 2.0 07/20/17 04:00 97.9 106 19 112/67 95 97.9 07/20/17 00:00 Nasal Cannula 2.0 07/20/17 00:00 97.7 110 19 110/67 94 Nasal Cannula 97.7 07/19/17 20:00 Nasal Cannula 2.0 07/19/17 20:00 98.4 111 18 116/71 94 Room Air 98.4 07/19/17 19:30 94 Room Air 21 07/19/17 19:30 105 18 Room Air 21 07/19/17 19:30 Room Air 21 07/19/17 16:24 98.6 109 19 119/70 98 Room Air 98.6 07/19/17 11:20 110 18 94/59 93 Room Air 07/19/17 11:15 114 18 99/64 93 Room Air 07/19/17 11:10 110 18 96/60 93 Room Air 07/19/17 11:05 111 18 97/59 94 Room Air 07/19/17 11:00 113 18 108/62 93 Room Air 07/19/17 10:55 114 18 109/70 93 Room Air 07/19/17 10:50 111 18 101/61 90 Room Air Intake and Output 07/19/17 07/20/17 19:00 07:00 Intake Total 582.5 ml 1237.5 ml Output Total 190 ml 1490 ml Balance 392.5 ml -252.5 ml Intake Oral 400 ml IV Total 182.5 ml 1237.5 ml Output Urine Total 1250 ml Stool Total 50 ml 50 ml Drainage Total 140 ml 190 ml # Voids 4 Laboratory Tests Test 07/20/17 05:45 White Blood Count 7.7 K/UL (4.8-10.8) Red Blood Count 3.34 M/UL (4.70-6.10) L Hemoglobin 10.4 G/DL (14.2-18.0) L Hematocrit 29.9 % (42.0-52.0) L Mean Corpuscular Volume 89 FL (80-99) Mean Corpuscular Hemoglobin 31.1 PG (27.0-31.0) H Mean Corpuscular Hemoglobin Concent 34.8 G/DL (32.0-36.0) Red Cell Distribution Width 11.9 % (11.6-14.8) Platelet Count 416 K/UL (150-450) Mean Platelet Volume 4.7 FL (6.5-10.1) L Neutrophils (%) (Auto) 78.4 % (45.0-75.0) H Lymphocytes (%) (Auto) 12.0 % (20.0-45.0) L Monocytes (%) (Auto) 7.0 % (1.0-10.0) Eosinophils (%) (Auto) 0.8 % (0.0-3.0) Basophils (%) (Auto) 1.9 % (0.0-2.0) Prothrombin Time 11.8 SEC (9.30-11.50) H Prothromb Time International Ratio 1.1 (0.9-1.1) Activated Partial Thromboplast Time 30 SEC (23-33) Sodium Level 136 MMOL/L (136-145) Potassium Level 3.6 MMOL/L (3.5-5.1) Chloride Level 101 MMOL/L (98-107) Carbon Dioxide Level 29 MMOL/L (21-32) Anion Gap 6 mmol/L (5-15) Blood Urea Nitrogen 5 mg/dL (7-18) L Creatinine 0.6 MG/DL (0.55-1.30) Estimat Glomerular Filtration Rate > 60 mL/min (>60) Glucose Level 91 MG/DL (74-106) Calcium Level 7.9 MG/DL (8.5-10.1) L Phosphorus Level 3.9 MG/DL (2.5-4.9) Magnesium Level 1.8 MG/DL (1.8-2.4) Total Bilirubin 0.4 MG/DL (0.2-1.0) Aspartate Amino Transf (AST/SGOT) 16 U/L (15-37) Alanine Aminotransferase (ALT/SGPT) 12 U/L (12-78) Alkaline Phosphatase 95 U/L (46-116) Total Protein 5.7 G/DL (6.4-8.2) L Albumin 1.5 G/DL (3.4-5.0) L Globulin 4.2 g/dL Albumin/Globulin Ratio 0.4 (1.0-2.7) L Height (Feet): 5 Height (Inches): 9.00 Weight (Pounds): 132 General Appearance: WD/WN, no apparent distress, alert Cardiovascular: normal rate Respiratory/Chest: normal breath sounds, no respiratory distress Abdominal Exam: normal bowel sounds, non tender, soft, other - colostomy Extremities: normal range of motion, non-tender Samia Albarran N.P. Jul 20, 2017 10:40
[2017-07-20] MEDS ORDERED: Meperidine 50mg/ml Inj(FOR RIGORS ONLY) IV PRN (10:45)
[2017-07-20] MEDS ORDERED: Midazolam 2mg/2ml Inj IVP PRN (10:45)
[2017-07-20] MEDS ORDERED: DiphenhydrAMINE 50mg/ml Inj IVP PRN ×2 (10:45→13:00)
[2017-07-20] MEDS ORDERED: Surgicel 4in x 8in TOPIC ONE (10:56)
[2017-07-20] MEDS ORDERED: DiphenhydrAMINE 50mg/ml Inj IVP ONE (12:00)
--- NOTE | 2017-07-20 12:30 | Immediate Post-Op Evaluation ---
Immediate Post-Op Evalulation Immediate Post-Op Evalulation Procedure: Exploratory laparotomy,intraabdominal abscess drainage Date of Evaluation: Jul 20, 2017 Time of Evaluation: 12:28 IV Fluids: 1800 Blood Products: Albumin 250 1 unit of PRBC Estimated Blood Loss: 400 Urinary Output: 150 Blood Pressure Systolic: 116 Blood Pressure Diastolic: 72 Pulse Rate: 104 Respiratory Rate: 24 O2 Sat by Pulse Oximetry: 99 Temperature (Fahrenheit): 98.6 Pain Score (1-10): 2 Nausea: No Vomiting: No Complications none Patient Status: reacts, patent, extubated, none Hydration Status: adequate MED LEON M.D. Jul 20, 2017 12:30
--- NOTE | 2017-07-20 12:36 | Nephrology Progress Note ---
Assessment/Plan Problem List: (1) ARF (acute renal failure) (2) UTI (urinary tract infection) (3) Psychiatric disorder (4) Acute abdomen Assessment Status: WBCs wnl had multi abdominal drains acute renal failure- extended left colectomy due to perf transverse colostomy creation Plan Plan: per charles, today is having surgery Mag and K supplement as needed DC horan DC IV PT advance diet Post op ( OP 07/08/17) Horan- 2D echo normal Ej Fx Albumin bollous monitor renal parameters K and Phos and Mag supplement as needed Subjective ROS Limited/Unobtainable: No Constitutional: Reports: malaise Objective Objective Last 24 Hour Vital Signs Date Time Temp Pulse Resp B/P (MAP) Pulse Ox O2 Delivery O2 Flow Rate FiO2 07/20/17 12:32 100.7 07/20/17 12:30 209.5 104 24 99 07/20/17 09:49 Room Air 21 07/20/17 09:49 96 Room Air 21 07/20/17 04:00 Nasal Cannula 2.0 07/20/17 04:00 97.9 106 19 112/67 95 97.9 07/20/17 00:00 Nasal Cannula 2.0 07/20/17 00:00 97.7 110 19 110/67 94 Nasal Cannula 97.7 07/19/17 20:00 Nasal Cannula 2.0 07/19/17 20:00 98.4 111 18 116/71 94 Room Air 98.4 07/19/17 19:30 94 Room Air 21 07/19/17 19:30 105 18 Room Air 21 07/19/17 19:30 Room Air 21 07/19/17 16:24 98.6 109 19 119/70 98 Room Air 98.6 Intake and Output 07/19/17 07/20/17 19:00 07:00 Intake Total 582.5 ml 1237.5 ml Output Total 190 ml 1490 ml Balance 392.5 ml -252.5 ml Intake Oral 400 ml IV Total 182.5 ml 1237.5 ml Output Urine Total 1250 ml Stool Total 50 ml 50 ml Drainage Total 140 ml 190 ml # Voids 4 Laboratory Tests 07/20/17 05:45: White Blood Count 7.7, Red Blood Count 3.34L, Hemoglobin 10.4L, Hematocrit 29.9L , Mean Corpuscular Volume 89, Mean Corpuscular Hemoglobin 31.1H, Mean Corpuscular Hemoglobin Concent 34.8, Red Cell Distribution Width 11.9, Platelet Count 416, Mean Platelet Volume 4.7L, Neutrophils (%) (Auto) 78.4H, Lymphocytes (%) (Auto) 12.0L, Monocytes (%) (Auto) 7.0, Eosinophils (%) (Auto) 0.8, Basophils (%) (Auto) 1.9, Prothrombin Time 11.8H, Prothromb Time International Ratio 1.1, Activated Partial Thromboplast Time 30, Sodium Level 136, Potassium Level 3.6, Chloride Level 101, Carbon Dioxide Level 29, Anion Gap 6, Blood Urea Nitrogen 5L, Creatinine 0.6, Estimat Glomerular Filtration Rate > 60, Glucose Level 91, Calcium Level 7.9L, Phosphorus Level 3.9, Magnesium Level 1.8, Total Bilirubin 0.4, Aspartate Amino Transf (AST/SGOT) 16, Alanine Aminotransferase ( ALT/SGPT) 12, Alkaline Phosphatase 95, Total Protein 5.7L, Albumin 1.5L, Globulin 4.2, Albumin/Globulin Ratio 0.4L Height (Feet): 5 Height (Inches): 9.00 Weight (Pounds): 132 General Appearance: no apparent distress Objective no other change NOEMY MARK Jul 20, 2017 12:36
[2017-07-20] MEDS: Hydromorphone 0.5mg/0.5ml inj IVP PRN ×3 (12:53→13:26)
--- NOTE | 2017-07-20 12:53 | Brief Operative Note ---
Immediate Post Operative Note Operative Note Pre-op Diagnosis: intraabdominal abscess Procedure: exploratory laparotomy, abdominal washout, evacuation of abscess, drain placement and abdominal closure Post-op Diagnosis: abdominal dehiscence, intraabdominal abscess Surgeon: harpreet Anesthesiologist: carlin Anesthesia: general Specimen: yes - abdominal tissue Complications: none Condition: stable Fluids: see records Estimated Blood Loss: volume - 400 Drains: ALIA Implant(s) used?: Yes - mesh Gilberto Michelle Jul 20, 2017 12:53
[2017-07-20] MEDS ORDERED: PCA Morphine 1mg/ml 30 ML IV PRN (13:00)
[2017-07-20] MEDS ORDERED: Morphine Sulfate 4mg/ml Inj SUBQ PRN ×2 (13:00→14:30)
[2017-07-20] MEDS ORDERED: Rate Change PCA 1 Each MISC PRN (13:00)
[2017-07-20] MEDS ORDERED: Morphine Sulfate 2mg/ml Inj IV PRN (13:00)
[2017-07-20] MEDS ORDERED: Naloxone 0.4mg/ml Inj IVP PRN (13:00)
[2017-07-20] MEDS ORDERED: Morphine Sulfate 2mg/ml Inj IVP PRN (14:30)
--- NOTE | 2017-07-20 15:34 | Pulmonology Progress Note ---
Assessment/Plan Problems: (1) Perforated abdominal viscus (2) ARF (acute renal failure) (3) Psychosis (4) Acute constipation (5) Amphetamine abuse Assessment/Plan tolerated surgery very well. s/p abscess removal iv fluids continue anbx f/u clinically pain management med/surg check electrolytes Subjective ROS Limited/Unobtainable: No Allergies: Coded Allergies: No Known Allergies (Unverified , 01/20/17) Objective Last 24 Hour Vital Signs Date Time Temp Pulse Resp B/P (MAP) Pulse Ox O2 Delivery O2 Flow Rate FiO2 07/20/17 14:10 99.3 07/20/17 14:08 99.3 106 18 115/76 99 Nasal Cannula 3.0 99.3 07/20/17 13:59 20 07/20/17 13:55 108 18 116/75 99 Nasal Cannula 3.0 07/20/17 13:44 20 07/20/17 13:39 107 18 118/79 99 Nasal Cannula 3.0 07/20/17 13:39 98.3 07/20/17 13:39 20 07/20/17 13:34 99.2 07/20/17 13:33 99.2 07/20/17 13:26 106 18 118/77 98 Simple Mask 8.0 07/20/17 13:26 99.2 07/20/17 13:13 99.2 07/20/17 13:13 106 18 121/78 98 Simple Mask 8.0 07/20/17 12:53 99.2 102 18 119/76 98 Simple Mask 8.0 99.2 07/20/17 12:53 99.2 07/20/17 12:42 99.2 105 18 109/71 98 Simple Mask 8.0 99.2 07/20/17 12:32 105 18 109/71 98 Simple Mask 8.0 07/20/17 12:32 100.7 07/20/17 12:30 209.5 104 24 99 07/20/17 12:26 109 18 110/68 98 Simple Mask 8.0 07/20/17 12:21 114 18 104/59 97 Simple Mask 8.0 07/20/17 12:16 100.7 123 18 119/61 97 Simple Mask 8.0 100.7 07/20/17 09:49 Room Air 21 07/20/17 09:49 96 Room Air 21 07/20/17 04:00 Nasal Cannula 2.0 07/20/17 04:00 97.9 106 19 112/67 95 97.9 07/20/17 00:00 Nasal Cannula 2.0 07/20/17 00:00 97.7 110 19 110/67 94 Nasal Cannula 97.7 07/19/17 20:00 Nasal Cannula 2.0 07/19/17 20:00 98.4 111 18 116/71 94 Room Air 98.4 07/19/17 19:30 94 Room Air 21 07/19/17 19:30 105 18 Room Air 21 07/19/17 19:30 Room Air 21 07/19/17 16:24 98.6 109 19 119/70 98 Room Air 98.6 Intake and Output 07/19/17 07/20/17 19:00 07:00 Intake Total 582.5 ml 1237.5 ml Output Total 190 ml 1490 ml Balance 392.5 ml -252.5 ml Intake Oral 400 ml IV Total 182.5 ml 1237.5 ml Output Urine Total 1250 ml Stool Total 50 ml 50 ml Drainage Total 140 ml 190 ml # Voids 4 Objective General Appearance: WD/WN Lines, tubes and drains: peripheral HEENT: normocephalic, atraumatic Neck: non-tender, normal alignment Respiratory/Chest: chest wall non-tender, lungs clear Breasts: no masses Cardiovascular/Chest: normal peripheral pulses, normal rate Abdomen: normal bowel sounds, clean dressing Genitourinary/Rectal: normal genital exam, heme negative stool Extremities: normal range of motion, non-tender Skin Exam: normal pigmentation Microbiology Date/Time Source Procedure Growth Status 07/19/17 11:15 Abdominal Fluid Gram Stain - Final Resulted 07/19/17 11:15 Abdominal Fluid Body Fluid Culture Pending Resulted 07/19/17 11:15 Abdominal Abscess Gram Stain - Final Resulted 07/19/17 11:15 Abdominal Abscess Aerobic Culture Pending Resulted 07/19/17 11:15 Abdominal Abscess Anaerobic Culture Pending Resulted Laboratory Tests 07/20/17 05:45: White Blood Count 7.7, Red Blood Count 3.34L, Hemoglobin 10.4L, Hematocrit 29.9L , Mean Corpuscular Volume 89, Mean Corpuscular Hemoglobin 31.1H, Mean Corpuscular Hemoglobin Concent 34.8, Red Cell Distribution Width 11.9, Platelet Count 416, Mean Platelet Volume 4.7L, Neutrophils (%) (Auto) 78.4H, Lymphocytes (%) (Auto) 12.0L, Monocytes (%) (Auto) 7.0, Eosinophils (%) (Auto) 0.8, Basophils (%) (Auto) 1.9, Prothrombin Time 11.8H, Prothromb Time International Ratio 1.1, Activated Partial Thromboplast Time 30, Sodium Level 136, Potassium Level 3.6, Chloride Level 101, Carbon Dioxide Level 29, Anion Gap 6, Blood Urea Nitrogen 5L, Creatinine 0.6, Estimat Glomerular Filtration Rate > 60, Glucose Level 91, Calcium Level 7.9L, Phosphorus Level 3.9, Magnesium Level 1.8, Total Bilirubin 0.4, Aspartate Amino Transf (AST/SGOT) 16, Alanine Aminotransferase ( ALT/SGPT) 12, Alkaline Phosphatase 95, Total Protein 5.7L, Albumin 1.5L, Globulin 4.2, Albumin/Globulin Ratio 0.4L Current Medications Medications (Trade) Dose Ordered Sig/Kayy Route PRN Reason Start Time Stop Time Status Last Admin Dose Admin Acetaminophen (Tylenol) 650 mg Q6H PRN ORAL Mild Pain/Temp > 100.5 07/14/17 19:00 08/13/17 18:59 07/18/17 20:22 Dextrose (Dextrose 50%) STAT PRN IV Hypoglycemia 07/11/17 20:30 08/10/17 20:29 Diphenhydramine HCl (Benadryl) 25 mg Q6H PRN IVP Itching/Pruritis 07/20/17 13:00 07/22/17 12:59 Finasteride (Proscar) 5 mg DAILY ORAL 07/13/17 09:00 08/12/17 08:59 07/19/17 08:42 Fluconazole/ Sodium Chloride 100 ml @ 100 mls/hr Q24H IV 07/20/17 14:00 07/27/17 13:59 07/20/17 15:05 Heparin Sodium (Porcine) (Heparin 5000 units/ml) 5,000 units EVERY 12 HOURS SUBQ 07/11/17 21:00 08/02/17 08:59 07/18/17 11:27 Lansoprazole (Prevacid) 30 mg DAILY ORAL 07/12/17 09:00 08/11/17 08:59 07/19/17 08:42 Lidocaine HCl (Xylocaine 1% 30ml) 30 ml ONCE PRN INJ FOR RADIOLOGY 07/19/17 10:30 07/20/17 23:59 Lorazepam (Ativan 2mg/ml 1ml) 1 mg Q4H PRN IV For Anxiety 07/15/17 22:15 07/22/17 22:14 07/19/17 23:12 Lorazepam (Ativan) 1 mg Q4H PRN ORAL Muscle Spasm 07/20/17 13:00 07/22/17 12:59 Miscellaneous Medication (MAKE UP GIRL Education Pamphlet) 1 ea ONCE ONCE MISC 07/20/17 18:00 07/20/17 18:01 Miscellaneous Medication (MAKE UP GIRL Rate Change) 1 ea DAILY PRN MISC rate change 07/20/17 13:00 07/22/17 12:59 Miscellaneous Medication (MAKE UP GIRL shift volume) 1 ea Q12HR@0700,1900 MISC 07/20/17 19:00 07/22/17 18:59 Morphine Sulfate 30 ml @ 0 mls/hr Q24H PRN IV For Pain 07/20/17 13:00 07/22/17 12:59 07/20/17 13:39 Morphine Sulfate (Morphine Sulfate) 2 mg Q2H PRN IV Moderate Pain (Pain Scale 4-6) 07/20/17 13:00 07/22/17 12:59 Morphine Sulfate (Morphine Sulfate) 4 mg Q3H PRN SUBQ Severe Pain (Pain Scale 7-10) 07/20/17 13:00 07/22/17 12:59 Naloxone HCl (Narcan) 0.1 mg Q1M PRN IVP RR<10/min OR SBP<90 mmHg 07/20/17 13:00 07/22/17 12:59 Nitroglycerin (Ntg) 0.4 mg Q5MIN X 3 DOSES PRN SL Prn Chest Pain 07/11/17 20:32 08/09/17 20:31 Ondansetron HCl (Zofran) 4 mg Q6H PRN IVP Nausea & Vomiting 07/11/17 20:32 08/10/17 20:31 Piperacillin Sod/ Tazobactam Sod 4.5 gm/Sodium Chloride 110 ml @ 27.5 mls/hr EVERY 8 HOURS IVPB 07/18/17 20:30 07/25/17 20:29 07/20/17 15:14 Potassium Chloride (K-Dur) 40 meq DAILY ORAL 07/20/17 09:00 08/19/17 08:59 Risperidone (RisperDAL) 3 mg BEDTIME ORAL 07/12/17 21:00 08/11/17 20:59 07/19/17 21:50 Sodium Chloride 1,000 ml @ 50 mls/hr Q20H IV 07/20/17 12:54 08/19/17 12:53 07/20/17 15:06 Temazepam (Restoril) 7.5 mg HSPRN PRN ORAL Insomnia 07/20/17 13:00 07/22/17 12:59 Brenda Martel MD Jul 20, 2017 15:34
--- NOTE | 2017-07-20 15:51 | Infectious Diseases Prog Note ---
Assessment/Plan Assessment/Plan ASSESSMENT: The patient is a 46-year-old male with; Bowel perf w/ development of 2 Abscess (subphrenic and pelvic) Cx: E coli( ESBL) and ENTEROCOCCUS AVIUM (turcios S) and Bact Fragilis - Repeat CT with persistent LUQ fluid collection and 2 other fluid collections; former suspect still residual abscess; latter 2 possible sterile vs infected s/p second exp lap and abscess draiange -s/p exploratory laparotomy, abdominal washout, evacuation of abscess, drain placement and abdominal closure 07/20; cx p -s/p CT guided drainage APOLLO fluid collection 07/19: Aspiration and drainage of left upper quadrant collection, yielding 150 mL of carin pus. Note that the collection could only be partially evacuated, however, despite confirmation of apparent adequate position of the drain.This may indicate high viscosity of the contents; cx pending s/p ex lap with left colectomy and transverse colostomy for perforated left colon, evacuation of intrabd abscess, abd washout w/ drain placement 07/09 -CT abd/p w/ 07/18: Postsurgical changes, as described, status post transverse colectomy, Jazz procedure, and placement of multiple surgical drains. Left upper quadrant intraperitoneal fluid collection, despite the presence of a surgical drain in the center of the collection. The presence of gas bubbles within rather than floating nondependently in the collection indicate that this fluid may be viscous. 2 other significant intraperitoneal collections,which do not appear to communicate, possibly loculated. Given presence of somewhat thick enhancing rim surrounding all of these, infected collections are certainly possible ( left paracolic gutter 5.8 cmx 4.3 cm x 8.3cm and R paracolic gutter, medial and inferior to tip R hepatic lobe 8cm x 6.4cm x8cm). Other than the gas within the left upper quadrant collection, previously demonstrated pneumoperitoneum has largely resolved. Left upper quadrant thick walled small bowel loops. Possibly reactive due to adjacent inflammation, enteritis is also possible. No evidence of bowel obstruction. Gallbladder wall edema versus pericholecystic fluid. -OR findings: The omentum was significantly thickened and adhesed to the small bowel and into the left lower quadrant. There was significant inflammatory process throughout the abdomen including a thickening of almost the entire peritoneal lining. The proximal portion of the jejunum was significantly thickened and had a rind of inflammatory infectious tissue on it. left transverse and descending colon, there was significant amount of thickening and significant disease process with some areas of mild ischemia noted and in the descending colon around the descending and sigmoid junction, there was a gross perforation with grossspillage of bowel contents noted in the area. there was a fluid collection/pelvic abscess, which was evacuated. There was a fluid collection in the right upper quadrant around the liver, which was evacuated and a large left upper quadrant subphrenic abscess with significant tissue rind and thickening around the stomach, spleen, peritoneum, and diaphragm in that location. CT : Evidence of perforation of hollow viscus with extensive amount of free air in the upper abdomen and some free fluid is well. Fever/Leukocytosis, recurrent- improving- 2ry to above -leukocytosis resolved -Bcx NTD Elevated ALP -Abd US: Negative for gallstones. There is borderline gallbladder wall thickening, however. Most likely, this is reactive secondary to surrounding inflammation related to recent bowel perforation and surgery for such. However, the possibility of acalculous acute cholecystitis should be considered, and consideration for nuclear medicine hepatobiliary scanning if there is high clinical suspicion history of diarrhea, SP RAMSEY: Improved HTN COPD/asthma. Smoker. History of chronic constipation. Osteoarthritis. ? CAD/RI, hx PLAN: -Continue IV Zosyn #10 (abx d#5 for enterococcal coverage) for intraabdominal abscess; agree with Fluconazole #1 -monitor closely if signs of decompensation switch Zosyn to Ertapenem and IV Ampcillin -plan to treat for 2 weeks from 07/20 --07/18 SP Ertapenem, PO Amoxicillin #3 --07/16 SP Cefepime #2 --07/12 SP Zosyn d# 6 --SP Rocephin d# 5 -f/u CT guided drainage and OR cx -surgery following -wound care monitor chest x-ray. Nephrology, following Monitor ( Blood ) Cx Discussed with RN Subjective Allergies: Coded Allergies: No Known Allergies (Unverified , 01/20/17) Subjective Tm 100.7 no leukocytois went to OR today Bcx NTD Objective Vital Signs Last 24 Hour Vital Signs Date Time Temp Pulse Resp B/P (MAP) Pulse Ox O2 Delivery O2 Flow Rate FiO2 07/20/17 14:10 99.3 07/20/17 14:08 99.3 106 18 115/76 99 Nasal Cannula 3.0 99.3 07/20/17 13:59 20 07/20/17 13:55 108 18 116/75 99 Nasal Cannula 3.0 07/20/17 13:44 20 07/20/17 13:39 107 18 118/79 99 Nasal Cannula 3.0 07/20/17 13:39 98.3 07/20/17 13:39 20 07/20/17 13:34 99.2 07/20/17 13:33 99.2 07/20/17 13:26 106 18 118/77 98 Simple Mask 8.0 07/20/17 13:26 99.2 07/20/17 13:13 99.2 07/20/17 13:13 106 18 121/78 98 Simple Mask 8.0 07/20/17 12:53 99.2 102 18 119/76 98 Simple Mask 8.0 99.2 07/20/17 12:53 99.2 07/20/17 12:42 99.2 105 18 109/71 98 Simple Mask 8.0 99.2 07/20/17 12:32 105 18 109/71 98 Simple Mask 8.0 07/20/17 12:32 100.7 07/20/17 12:30 209.5 104 24 99 07/20/17 12:26 109 18 110/68 98 Simple Mask 8.0 07/20/17 12:21 114 18 104/59 97 Simple Mask 8.0 07/20/17 12:16 100.7 123 18 119/61 97 Simple Mask 8.0 100.7 07/20/17 09:49 Room Air 21 07/20/17 09:49 96 Room Air 21 07/20/17 04:00 Nasal Cannula 2.0 07/20/17 04:00 97.9 106 19 112/67 95 97.9 07/20/17 00:00 Nasal Cannula 2.0 07/20/17 00:00 97.7 110 19 110/67 94 Nasal Cannula 97.7 07/19/17 20:00 Nasal Cannula 2.0 07/19/17 20:00 98.4 111 18 116/71 94 Room Air 98.4 07/19/17 19:30 94 Room Air 21 07/19/17 19:30 105 18 Room Air 21 07/19/17 19:30 Room Air 21 3/15/18 16:24 98.6 109 19 119/70 98 Room Air 98.6 Height (Feet): 5 Height (Inches): 9.00 Weight (Pounds): 132 Objective General Appearance: WD/WN, no apparent distress, alert, thin Cardiovascular: normal rate Respiratory/Chest: normal breath sounds, no respiratory distress Abdominal Exam: normal bowel sounds, non tender, soft, other - colostomy Extremities: non-tender Microbiology Date/Time Source Procedure Growth Status 07/19/17 11:15 Abdominal Fluid Gram Stain - Final Resulted 07/19/17 11:15 Abdominal Fluid Body Fluid Culture Pending Resulted 07/19/17 11:15 Abdominal Abscess Gram Stain - Final Resulted 07/19/17 11:15 Abdominal Abscess Aerobic Culture Pending Resulted 07/19/17 11:15 Abdominal Abscess Anaerobic Culture Pending Resulted Laboratory Tests Test 07/20/17 05:45 White Blood Count 7.7 K/UL (4.8-10.8) Red Blood Count 3.34 M/UL (4.70-6.10) L Hemoglobin 10.4 G/DL (14.2-18.0) L Hematocrit 29.9 % (42.0-52.0) L Mean Corpuscular Volume 89 FL (80-99) Mean Corpuscular Hemoglobin 31.1 PG (27.0-31.0) H Mean Corpuscular Hemoglobin Concent 34.8 G/DL (32.0-36.0) Red Cell Distribution Width 11.9 % (11.6-14.8) Platelet Count 416 K/UL (150-450) Mean Platelet Volume 4.7 FL (6.5-10.1) L Neutrophils (%) (Auto) 78.4 % (45.0-75.0) H Lymphocytes (%) (Auto) 12.0 % (20.0-45.0) L Monocytes (%) (Auto) 7.0 % (1.0-10.0) Eosinophils (%) (Auto) 0.8 % (0.0-3.0) Basophils (%) (Auto) 1.9 % (0.0-2.0) Prothrombin Time 11.8 SEC (9.30-11.50) H Prothromb Time International Ratio 1.1 (0.9-1.1) Activated Partial Thromboplast Time 30 SEC (23-33) Sodium Level 136 MMOL/L (136-145) Potassium Level 3.6 MMOL/L (3.5-5.1) Chloride Level 101 MMOL/L (98-107) Carbon Dioxide Level 29 MMOL/L (21-32) Anion Gap 6 mmol/L (5-15) Blood Urea Nitrogen 5 mg/dL (7-18) L Creatinine 0.6 MG/DL (0.55-1.30) Estimat Glomerular Filtration Rate > 60 mL/min (>60) Glucose Level 91 MG/DL (74-106) Calcium Level 7.9 MG/DL (8.5-10.1) L Phosphorus Level 3.9 MG/DL (2.5-4.9) Magnesium Level 1.8 MG/DL (1.8-2.4) Total Bilirubin 0.4 MG/DL (0.2-1.0) Aspartate Amino Transf (AST/SGOT) 16 U/L (15-37) Alanine Aminotransferase (ALT/SGPT) 12 U/L (12-78) Alkaline Phosphatase 95 U/L (46-116) Total Protein 5.7 G/DL (6.4-8.2) L Albumin 1.5 G/DL (3.4-5.0) L Globulin 4.2 g/dL Albumin/Globulin Ratio 0.4 (1.0-2.7) L Current Medications Medications (Trade) Dose Ordered Sig/Kayy Route PRN Reason Start Time Stop Time Status Last Admin Dose Admin Acetaminophen (Tylenol) 650 mg Q6H PRN ORAL Mild Pain/Temp > 100.5 07/14/17 19:00 08/13/17 18:59 07/18/17 20:22 Dextrose (Dextrose 50%) STAT PRN IV Hypoglycemia 07/11/17 20:30 08/10/17 20:29 Diphenhydramine HCl (Benadryl) 25 mg Q6H PRN IVP Itching/Pruritis 07/20/17 13:00 07/22/17 12:59 Finasteride (Proscar) 5 mg DAILY ORAL 07/13/17 09:00 08/12/17 08:59 07/19/17 08:42 Fluconazole/ Sodium Chloride 100 ml @ 100 mls/hr Q24H IV 07/20/17 14:00 07/27/17 13:59 07/20/17 15:05 Heparin Sodium (Porcine) (Heparin 5000 units/ml) 5,000 units EVERY 12 HOURS SUBQ 07/11/17 21:00 08/02/17 08:59 07/18/17 11:27 Lansoprazole (Prevacid) 30 mg DAILY ORAL 07/12/17 09:00 08/11/17 08:59 07/19/17 08:42 Lidocaine HCl (Xylocaine 1% 30ml) 30 ml ONCE PRN INJ FOR RADIOLOGY 07/19/17 10:30 07/20/17 23:59 Lorazepam (Ativan 2mg/ml 1ml) 1 mg Q4H PRN IV For Anxiety 07/15/17 22:15 07/22/17 22:14 07/19/17 23:12 Lorazepam (Ativan) 1 mg Q4H PRN ORAL Muscle Spasm 07/20/17 13:00 07/22/17 12:59 Miscellaneous Medication (AUTOMOTIVE DESIGN DRAFTER Education Pamphlet) 1 ea ONCE ONCE MISC 07/20/17 18:00 07/20/17 18:01 Miscellaneous Medication (AUTOMOTIVE DESIGN DRAFTER Rate Change) 1 ea DAILY PRN MISC rate change 07/20/17 13:00 07/22/17 12:59 Miscellaneous Medication (AUTOMOTIVE DESIGN DRAFTER shift volume) 1 ea Q12HR@0700,1900 MISC 07/20/17 19:00 07/22/17 18:59 Morphine Sulfate 30 ml @ 0 mls/hr Q24H PRN IV For Pain 07/20/17 13:00 07/22/17 12:59 07/20/17 13:39 Morphine Sulfate (Morphine Sulfate) 2 mg Q2H PRN IV Moderate Pain (Pain Scale 4-6) 07/20/17 13:00 07/22/17 12:59 Morphine Sulfate (Morphine Sulfate) 4 mg Q3H PRN SUBQ Severe Pain (Pain Scale 7-10) 07/20/17 13:00 07/22/17 12:59 Naloxone HCl (Narcan) 0.1 mg Q1M PRN IVP RR<10/min OR SBP<90 mmHg 07/20/17 13:00 07/22/17 12:59 Nitroglycerin (Ntg) 0.4 mg Q5MIN X 3 DOSES PRN SL Prn Chest Pain 07/11/17 20:32 08/09/17 20:31 Ondansetron HCl (Zofran) 4 mg Q6H PRN IVP Nausea & Vomiting 07/11/17 20:32 08/10/17 20:31 Piperacillin Sod/ Tazobactam Sod 4.5 gm/Sodium Chloride 110 ml @ 27.5 mls/hr EVERY 8 HOURS IVPB 07/18/17 20:30 07/25/17 20:29 07/20/17 15:14 Potassium Chloride (K-Dur) 40 meq DAILY ORAL 07/20/17 09:00 08/19/17 08:59 Risperidone (RisperDAL) 3 mg BEDTIME ORAL 07/12/17 21:00 08/11/17 20:59 07/19/17 21:50 Sodium Chloride 1,000 ml @ 50 mls/hr Q20H IV 07/20/17 12:54 08/19/17 12:53 07/20/17 15:06 Temazepam (Restoril) 7.5 mg HSPRN PRN ORAL Insomnia 07/20/17 13:00 07/22/17 12:59 Chhaya Menendez M.D. Jul 20, 2017 15:51
[2017-07-20] MEDS ORDERED: PCA Education Pamphlet MISC ONE (18:00)
[2017-07-20] MEDS: Tums 500mg ORAL PRN (18:38)
[2017-07-20] MEDS: PCA shift volume MISC SCH (19:14)
--- NOTE | 2017-07-20 19:32 | General Progress Note ---
Assessment/Plan Assessment/Plan Schizophrenia CPT Encephalopathy PLAN: - increase the risperidone to 3 mg at bedtime. Subjective Date patient seen: Jul 20, 2017 Neurologic/Psychiatric: Reports: depressed Allergies: Coded Allergies: No Known Allergies (Unverified , 01/20/17) Subjective the pt is post op Objective Last 24 Hour Vital Signs Date Time Temp Pulse Resp B/P (MAP) Pulse Ox O2 Delivery O2 Flow Rate FiO2 07/20/17 15:30 111 16 116/78 99 Nasal Cannula 3.0 07/20/17 15:29 16 07/20/17 15:15 116 15 110/72 98 Nasal Cannula 3.0 07/20/17 15:00 112 16 112/86 98 Nasal Cannula 3.0 07/20/17 14:59 16 07/20/17 14:45 98.2 110 16 117/78 98 Nasal Cannula 3.0 98.2 07/20/17 14:29 20 07/20/17 14:14 20 07/20/17 14:10 99.3 07/20/17 14:08 99.3 106 18 115/76 99 Nasal Cannula 3.0 99.3 07/20/17 13:59 20 07/20/17 13:55 108 18 116/75 99 Nasal Cannula 3.0 07/20/17 13:44 20 07/20/17 13:39 107 18 118/79 99 Nasal Cannula 3.0 07/20/17 13:39 98.3 07/20/17 13:39 20 07/20/17 13:34 99.2 07/20/17 13:33 99.2 07/20/17 13:26 106 18 118/77 98 Simple Mask 8.0 07/20/17 13:26 99.2 07/20/17 13:13 99.2 07/20/17 13:13 106 18 121/78 98 Simple Mask 8.0 07/20/17 12:53 99.2 102 18 119/76 98 Simple Mask 8.0 99.2 07/20/17 12:53 99.2 07/20/17 12:42 99.2 105 18 109/71 98 Simple Mask 8.0 99.2 07/20/17 12:32 105 18 109/71 98 Simple Mask 8.0 07/20/17 12:32 100.7 07/20/17 12:30 209.5 104 24 99 07/20/17 12:26 109 18 110/68 98 Simple Mask 8.0 07/20/17 12:21 114 18 104/59 97 Simple Mask 8.0 07/20/17 12:16 100.7 123 18 119/61 97 Simple Mask 8.0 100.7 07/20/17 09:49 Room Air 21 07/20/17 09:49 96 Room Air 21 07/20/17 04:00 Nasal Cannula 2.0 07/20/17 04:00 97.9 106 19 112/67 95 97.9 07/20/17 00:00 Nasal Cannula 2.0 07/20/17 00:00 97.7 110 19 110/67 94 Nasal Cannula 97.7 07/19/17 20:00 Nasal Cannula 2.0 07/19/17 20:00 98.4 111 18 116/71 94 Room Air 98.4 Intake and Output 07/19/17 07/20/17 19:00 07:00 Intake Total 582.5 ml 1237.5 ml Output Total 190 ml 1490 ml Balance 392.5 ml -252.5 ml Intake Oral 400 ml IV Total 182.5 ml 1237.5 ml Output Urine Total 1250 ml Stool Total 50 ml 50 ml Drainage Total 140 ml 190 ml # Voids 4 Laboratory Tests 07/20/17 05:45: White Blood Count 7.7, Red Blood Count 3.34L, Hemoglobin 10.4L, Hematocrit 29.9L , Mean Corpuscular Volume 89, Mean Corpuscular Hemoglobin 31.1H, Mean Corpuscular Hemoglobin Concent 34.8, Red Cell Distribution Width 11.9, Platelet Count 416, Mean Platelet Volume 4.7L, Neutrophils (%) (Auto) 78.4H, Lymphocytes (%) (Auto) 12.0L, Monocytes (%) (Auto) 7.0, Eosinophils (%) (Auto) 0.8, Basophils (%) (Auto) 1.9, Prothrombin Time 11.8H, Prothromb Time International Ratio 1.1, Activated Partial Thromboplast Time 30, Sodium Level 136, Potassium Level 3.6, Chloride Level 101, Carbon Dioxide Level 29, Anion Gap 6, Blood Urea Nitrogen 5L, Creatinine 0.6, Estimat Glomerular Filtration Rate > 60, Glucose Level 91, Calcium Level 7.9L, Phosphorus Level 3.9, Magnesium Level 1.8, Total Bilirubin 0.4, Aspartate Amino Transf (AST/SGOT) 16, Alanine Aminotransferase ( ALT/SGPT) 12, Alkaline Phosphatase 95, Total Protein 5.7L, Albumin 1.5L, Globulin 4.2, Albumin/Globulin Ratio 0.4L Height (Feet): 5 Height (Inches): 9.00 Weight (Pounds): 132 General Appearance: no apparent distress, alert Idalia Montanez M.D. Jul 20, 2017 19:32
[2017-07-20] MEDS: PCA Morphine 1mg/ml 30 ML IV PRN (20:03)
[2017-07-20] MEDS: LORazepam Inj 2mg/ml 1ml IV PRN (22:03)
[2017-07-21] VITALS: BP 123/82
[2017-07-21] MEDS: PCA Morphine 1mg/ml 30 ML IV PRN ×3 (03:35→18:36)
[2017-07-21 04:00] VITALS: BP 122/85
[2017-07-21] MEDS: Piperacillin/Tazobactam 4.5 GM in NS 110 ML IVPB SCH ×2 (05:34→14:17)
[2017-07-21] MEDS: PCA shift volume MISC SCH ×2 (07:00→19:19)
[2017-07-21 08:00] VITALS: BP 116/80
[2017-07-21] MEDS: Heparin 5000 units/ml inj SUBQ SCH ×2 (08:57→20:09)
[2017-07-21 10:46] LABS: BASOPHILS % (AUTO) 0.9 % (0.0-2.0); EOSINOPHILS % (AUTO) 0.4 % (0.0-3.0); HEMATOCRIT 30.1 % (42.0-52.0); HEMOGLOBIN 10.3 G/DL (14.2-18.0); LYMPHOCYTES % (AUTO) 7.4 % (20.0-45.0); MEAN CORPUSCULAR VOLUME 90 FL (80-99); MONOCYTES % (AUTO) 6.6 % (1.0-10.0); NEUTROPHILS % (AUTO) 84.8 % (45.0-75.0); PLATELET COUNT 406 K/UL (150-450); RED BLOOD COUNT 3.34 M/UL (4.70-6.10); RED CELL DISTRIBUTION WIDTH 12.1 % (11.6-14.8); WHITE BLOOD COUNT 14.5 K/UL (4.8-10.8)
[2017-07-21 10:55] LABS: ANION GAP 4 mmol/L (5-15); BLOOD UREA NITROGEN 5 mg/dL (7-18); CALCIUM 7.8 MG/DL (8.5-10.1); CARBON DIOXIDE 31 MMOL/L (21-32); CHLORIDE 100 MMOL/L (98-107); CREATININE 0.7 MG/DL (0.55-1.30); POTASSIUM 4.5 MMOL/L (3.5-5.1); SODIUM 135 MMOL/L (136-145)
--- NOTE | 2017-07-21 11:02 | General Progress Note ---
Assessment/Plan Problem List: (1) COPD (chronic obstructive pulmonary disease) ICD Codes: J44.9 - Chronic obstructive pulmonary disease, unspecified SNOMED: 00992601 (2) Constipation ICD Codes: K59.00 - Constipation, unspecified SNOMED: 40429049 (3) Colon cancer ICD Codes: C18.9 - Malignant neoplasm of colon, unspecified SNOMED: 700750895 (4) Opiate dependence ICD Codes: F11.20 - Opioid dependence, uncomplicated SNOMED: 02535412 Qualifiers: Qualified Codes: F11.20 - Opioid dependence, uncomplicated (5) Amphetamine abuse ICD Codes: F15.10 - Other stimulant abuse, uncomplicated SNOMED: 19925657 Assessment/Plan s/p Exploratory laparotomy, partial bowel resection fu surgical recs IVFs diet adv per surgery colostomy care prn transfusions serial imaging prn fu labs Subjective ROS Limited/Unobtainable: Yes Allergies: Coded Allergies: No Known Allergies (Unverified , 01/20/17) Subjective no event sob Objective Last 24 Hour Vital Signs Date Time Temp Pulse Resp B/P (MAP) Pulse Ox O2 Delivery O2 Flow Rate FiO2 07/21/17 08:00 98.8 116 20 116/80 98 Nasal Cannula 3.0 98.8 07/21/17 08:00 18 07/21/17 04:00 97.2 117 20 122/85 97 97.2 07/21/17 04:00 Nasal Cannula 3.0 07/21/17 03:40 16 07/21/17 03:30 16 07/21/17 00:00 Nasal Cannula 3.0 07/21/17 00:00 98.2 125 20 123/82 91 98.2 07/21/17 00:00 16 07/20/17 20:00 16 07/20/17 20:00 97.9 124 20 124/83 98 97.9 07/20/17 20:00 Nasal Cannula 3.0 07/20/17 18:45 98.2 121 20 124/82 98 Nasal Cannula 3.0 98.2 07/20/17 15:30 111 16 116/78 99 Nasal Cannula 3.0 07/20/17 15:29 16 07/20/17 15:15 116 15 110/72 98 Nasal Cannula 3.0 07/20/17 15:00 112 16 112/86 98 Nasal Cannula 3.0 07/20/17 14:59 16 07/20/17 14:45 98.2 110 16 117/78 98 Nasal Cannula 3.0 98.2 07/20/17 14:29 20 07/20/17 14:14 20 07/20/17 14:10 99.3 07/20/17 14:08 99.3 106 18 115/76 99 Nasal Cannula 3.0 99.3 07/20/17 13:59 20 07/20/17 13:55 108 18 116/75 99 Nasal Cannula 3.0 07/20/17 13:44 20 07/20/17 13:39 107 18 118/79 99 Nasal Cannula 3.0 07/20/17 13:39 98.3 07/20/17 13:39 20 07/20/17 13:34 99.2 07/20/17 13:33 99.2 07/20/17 13:26 106 18 118/77 98 Simple Mask 8.0 07/20/17 13:26 99.2 07/20/17 13:13 99.2 07/20/17 13:13 106 18 121/78 98 Simple Mask 8.0 07/20/17 12:53 99.2 102 18 119/76 98 Simple Mask 8.0 99.2 07/20/17 12:53 99.2 07/20/17 12:42 99.2 105 18 109/71 98 Simple Mask 8.0 99.2 07/20/17 12:32 105 18 109/71 98 Simple Mask 8.0 07/20/17 12:32 100.7 07/20/17 12:30 209.5 104 24 99 07/20/17 12:26 109 18 110/68 98 Simple Mask 8.0 07/20/17 12:21 114 18 104/59 97 Simple Mask 8.0 07/20/17 12:16 100.7 123 18 119/61 97 Simple Mask 8.0 100.7 Intake and Output 07/20/17 07/21/17 19:00 07:00 Intake Total 3677.5 ml 682.5 ml Output Total 1050 ml 800 ml Balance 2627.5 ml -117.5 ml Intake Oral 800 ml IV Total 2377.5 ml 682.5 ml Blood Product 250 ml Other 250 ml Output Urine Total 450 ml 650 ml Stool Total 0 ml Drainage Total 200 ml 150 ml Estimated Blood Loss 400 ml Laboratory Tests 07/21/17 10:35: White Blood Count 14.5#H, Red Blood Count 3.34L, Hemoglobin 10.3L, Hematocrit 30.1L, Mean Corpuscular Volume 90, Mean Corpuscular Hemoglobin 30.7, Mean Corpuscular Hemoglobin Concent 34.0, Red Cell Distribution Width 12.1, Platelet Count 406, Mean Platelet Volume 4.9L, Neutrophils (%) (Auto) 84.8H, Lymphocytes (%) (Auto) 7.4L, Monocytes (%) (Auto) 6.6, Eosinophils (%) (Auto) 0.4, Basophils (%) (Auto) 0.9, Sodium Level 135L, Potassium Level 4.5, Chloride Level 100, Carbon Dioxide Level 31, Anion Gap 4L, Blood Urea Nitrogen 5L, Creatinine 0.7, Estimat Glomerular Filtration Rate > 60, Glucose Level 97, Calcium Level 7.8L Height (Feet): 5 Height (Inches): 9.00 Weight (Pounds): 136 General Appearance: no apparent distress EENT: normal ENT inspection Neck: supple Cardiovascular: normal rate Respiratory/Chest: decreased breath sounds Abdomen: soft, decreased bowel sounds Extremities: non-tender APOLONIA ANTONY Jul 21, 2017 11:02
[2017-07-21 12:00] VITALS: BP 126/81
--- NOTE | 2017-07-21 12:10 | General Surgery Progress Note ---
General Surgery-Progress Note Subjective Procedure Performed exploratory laparotomy, abdominal washout, evacuation of abscess, drain placement and abdominal closure Symptoms: improved Additional Comments states he feels better today. pain improving now that he has STERILISATION TECHNICIAN. no n/v/f/c. tolerating clears. wounds improved. drains improved. Objective Last 24 Hour Vital Signs Date Time Temp Pulse Resp B/P (MAP) Pulse Ox O2 Delivery O2 Flow Rate FiO2 07/21/17 08:00 98.8 116 20 116/80 98 Nasal Cannula 3.0 98.8 07/21/17 08:00 18 07/21/17 04:00 97.2 117 20 122/85 97 97.2 07/21/17 04:00 Nasal Cannula 3.0 07/21/17 03:40 16 07/21/17 03:30 16 07/21/17 00:00 Nasal Cannula 3.0 07/21/17 00:00 98.2 125 20 123/82 91 98.2 07/21/17 00:00 16 07/20/17 20:00 16 07/20/17 20:00 97.9 124 20 124/83 98 97.9 07/20/17 20:00 Nasal Cannula 3.0 07/20/17 18:45 98.2 121 20 124/82 98 Nasal Cannula 3.0 98.2 07/20/17 15:30 111 16 116/78 99 Nasal Cannula 3.0 07/20/17 15:29 16 07/20/17 15:15 116 15 110/72 98 Nasal Cannula 3.0 07/20/17 15:00 112 16 112/86 98 Nasal Cannula 3.0 07/20/17 14:59 16 07/20/17 14:45 98.2 110 16 117/78 98 Nasal Cannula 3.0 98.2 07/20/17 14:29 20 07/20/17 14:14 20 07/20/17 14:10 99.3 07/20/17 14:08 99.3 106 18 115/76 99 Nasal Cannula 3.0 99.3 07/20/17 13:59 20 07/20/17 13:55 108 18 116/75 99 Nasal Cannula 3.0 07/20/17 13:44 20 07/20/17 13:39 107 18 118/79 99 Nasal Cannula 3.0 07/20/17 13:39 98.3 07/20/17 13:39 20 07/20/17 13:34 99.2 07/20/17 13:33 99.2 07/20/17 13:26 106 18 118/77 98 Simple Mask 8.0 07/20/17 13:26 99.2 07/20/17 13:13 99.2 07/20/17 13:13 106 18 121/78 98 Simple Mask 8.0 07/20/17 12:53 99.2 102 18 119/76 98 Simple Mask 8.0 99.2 07/20/17 12:53 99.2 07/20/17 12:42 99.2 105 18 109/71 98 Simple Mask 8.0 99.2 07/20/17 12:32 105 18 109/71 98 Simple Mask 8.0 07/20/17 12:32 100.7 07/20/17 12:30 209.5 104 24 99 07/20/17 12:26 109 18 110/68 98 Simple Mask 8.0 07/20/17 12:21 114 18 104/59 97 Simple Mask 8.0 07/20/17 12:16 100.7 123 18 119/61 97 Simple Mask 8.0 100.7 I&O Intake and Output 07/20/17 07/21/17 19:00 07:00 Intake Total 3677.5 ml 682.5 ml Output Total 1050 ml 800 ml Balance 2627.5 ml -117.5 ml Intake Oral 800 ml IV Total 2377.5 ml 682.5 ml Blood Product 250 ml Other 250 ml Output Urine Total 450 ml 650 ml Stool Total 0 ml Drainage Total 200 ml 150 ml Estimated Blood Loss 400 ml Dressing: saturated Wound: clean, intact Drains: reginaldo - 3 drains with serosang output. no longer purulent Cardiovascular: RSR Respiratory: clear Abdomen: soft, flat, tenderness Extremities: no cyanosis Laboratory Tests Test 07/21/17 10:35 White Blood Count 14.5 K/UL (4.8-10.8) #H Red Blood Count 3.34 M/UL (4.70-6.10) L Hemoglobin 10.3 G/DL (14.2-18.0) L Hematocrit 30.1 % (42.0-52.0) L Mean Corpuscular Volume 90 FL (80-99) Mean Corpuscular Hemoglobin 30.7 PG (27.0-31.0) Mean Corpuscular Hemoglobin Concent 34.0 G/DL (32.0-36.0) Red Cell Distribution Width 12.1 % (11.6-14.8) Platelet Count 406 K/UL (150-450) Mean Platelet Volume 4.9 FL (6.5-10.1) L Neutrophils (%) (Auto) 84.8 % (45.0-75.0) H Lymphocytes (%) (Auto) 7.4 % (20.0-45.0) L Monocytes (%) (Auto) 6.6 % (1.0-10.0) Eosinophils (%) (Auto) 0.4 % (0.0-3.0) Basophils (%) (Auto) 0.9 % (0.0-2.0) Sodium Level 135 MMOL/L (136-145) L Potassium Level 4.5 MMOL/L (3.5-5.1) Chloride Level 100 MMOL/L (98-107) Carbon Dioxide Level 31 MMOL/L (21-32) Anion Gap 4 mmol/L (5-15) L Blood Urea Nitrogen 5 mg/dL (7-18) L Creatinine 0.7 MG/DL (0.55-1.30) Estimat Glomerular Filtration Rate > 60 mL/min (>60) Glucose Level 97 MG/DL (74-106) Calcium Level 7.8 MG/DL (8.5-10.1) L Assessment Post-op Diagnosis abdominal dehiscence, intraabdominal abscess Plan Problems: (1) Perforated abdominal viscus Assessment & Plan: perforated abdominal viscus as noted on CT. exam with peritonitis generalized but with focus in LLQ. history of psych illness but currently AAOx4 and cooperative with exam. poor historian. possible drug seeking behavior. s/p Ex lap with abdominal washout, left colectomy and creation of transverse colostomy. Noted to have larger perforation in sigmoid likely stercoarl given operative findings. large left perisplenic abscess evacuated. drains placed. post operatively improved but after a few days noted to have purulent drainage out of left upper quadrant drain. CT demonstrated reaccumulation of large complex abscess despite extensive washout on initial operation. IR drain placed and pus evacuated but could not resolve complex collection. micro with multiorganism. midline wound dehiscence. decision made for re-exploration with washout, drains, and midline closure. s/p re-exploration with washout, drains, and midline closure on 07/20. large complex abscess noted, evacuated, washout, drains placed. midline closed. doing well. recovering. improved pain control with STERILISATION TECHNICIAN. afebrile, HD stable, labs reviewed. midline wound holding. packing and dressings okay. drains okay -clear liquids -pt/ot, ambulate and oob -STERILISATION TECHNICIAN for pain control -cont IV Abx. appreciate ID input. -cont with dressings TID to midline wound. d/c Gilberto Lilly Jul 21, 2017 12:10
--- NOTE | 2017-07-21 12:17 | Nephrology Progress Note ---
Assessment/Plan Problem List: (1) ARF (acute renal failure) (2) UTI (urinary tract infection) (3) Psychiatric disorder (4) Acute abdomen Assessment Status: WBCs wnl had multi abdominal drains acute renal failure- extended left colectomy due to perf transverse colostomy creation Plan Plan: per charles, 07/20/17 Mag and K supplement as needed DC horan DC IV PT advance diet Post op ( OP 07/08/17) Horan- 2D echo normal Ej Fx Albumin bollous monitor renal parameters K and Phos and Mag supplement as needed Subjective ROS Limited/Unobtainable: No Constitutional: Reports: malaise Objective Objective Last 24 Hour Vital Signs Date Time Temp Pulse Resp B/P (MAP) Pulse Ox O2 Delivery O2 Flow Rate FiO2 07/21/17 08:00 98.8 116 20 116/80 98 Nasal Cannula 3.0 98.8 07/21/17 08:00 18 07/21/17 04:00 97.2 117 20 122/85 97 97.2 07/21/17 04:00 Nasal Cannula 3.0 07/21/17 03:40 16 07/21/17 03:30 16 07/21/17 00:00 Nasal Cannula 3.0 07/21/17 00:00 98.2 125 20 123/82 91 98.2 07/21/17 00:00 16 07/20/17 20:00 16 07/20/17 20:00 97.9 124 20 124/83 98 97.9 07/20/17 20:00 Nasal Cannula 3.0 07/20/17 18:45 98.2 121 20 124/82 98 Nasal Cannula 3.0 98.2 07/20/17 15:30 111 16 116/78 99 Nasal Cannula 3.0 07/20/17 15:29 16 07/20/17 15:15 116 15 110/72 98 Nasal Cannula 3.0 07/20/17 15:00 112 16 112/86 98 Nasal Cannula 3.0 07/20/17 14:59 16 07/20/17 14:45 98.2 110 16 117/78 98 Nasal Cannula 3.0 98.2 07/20/17 14:29 20 07/20/17 14:14 20 07/20/17 14:10 99.3 07/20/17 14:08 99.3 106 18 115/76 99 Nasal Cannula 3.0 99.3 07/20/17 13:59 20 07/20/17 13:55 108 18 116/75 99 Nasal Cannula 3.0 07/20/17 13:44 20 07/20/17 13:39 107 18 118/79 99 Nasal Cannula 3.0 07/20/17 13:39 98.3 07/20/17 13:39 20 07/20/17 13:34 99.2 07/20/17 13:33 99.2 07/20/17 13:26 106 18 118/77 98 Simple Mask 8.0 07/20/17 13:26 99.2 07/20/17 13:13 99.2 07/20/17 13:13 106 18 121/78 98 Simple Mask 8.0 07/20/17 12:53 99.2 102 18 119/76 98 Simple Mask 8.0 99.2 07/20/17 12:53 99.2 07/20/17 12:42 99.2 105 18 109/71 98 Simple Mask 8.0 99.2 07/20/17 12:32 105 18 109/71 98 Simple Mask 8.0 07/20/17 12:32 100.7 07/20/17 12:30 209.5 104 24 99 07/20/17 12:26 109 18 110/68 98 Simple Mask 8.0 07/20/17 12:21 114 18 104/59 97 Simple Mask 8.0 Intake and Output 07/20/17 07/21/17 19:00 07:00 Intake Total 3677.5 ml 682.5 ml Output Total 1050 ml 800 ml Balance 2627.5 ml -117.5 ml Intake Oral 800 ml IV Total 2377.5 ml 682.5 ml Blood Product 250 ml Other 250 ml Output Urine Total 450 ml 650 ml Stool Total 0 ml Drainage Total 200 ml 150 ml Estimated Blood Loss 400 ml Laboratory Tests 07/21/17 10:35: White Blood Count 14.5#H, Red Blood Count 3.34L, Hemoglobin 10.3L, Hematocrit 30.1L, Mean Corpuscular Volume 90, Mean Corpuscular Hemoglobin 30.7, Mean Corpuscular Hemoglobin Concent 34.0, Red Cell Distribution Width 12.1, Platelet Count 406, Mean Platelet Volume 4.9L, Neutrophils (%) (Auto) 84.8H, Lymphocytes (%) (Auto) 7.4L, Monocytes (%) (Auto) 6.6, Eosinophils (%) (Auto) 0.4, Basophils (%) (Auto) 0.9, Sodium Level 135L, Potassium Level 4.5, Chloride Level 100, Carbon Dioxide Level 31, Anion Gap 4L, Blood Urea Nitrogen 5L, Creatinine 0.7, Estimat Glomerular Filtration Rate > 60, Glucose Level 97, Calcium Level 7.8L Height (Feet): 5 Height (Inches): 9.00 Weight (Pounds): 136 General Appearance: no apparent distress Cardiovascular: tachycardia Respiratory/Chest: decreased breath sounds Abdomen: distended, other - 3 drains Objective no other change NOEMY MARK Jul 21, 2017 12:17
--- NOTE | 2017-07-21 14:34 | Pulmonology Progress Note ---
Assessment/Plan Problems: (1) Perforated abdominal viscus (2) ARF (acute renal failure) (3) Psychosis (4) Acute constipation (5) Amphetamine abuse Assessment/Plan tolerated surgery very well. s/p abscess removal iv fluids continue anbx f/u clinically pain management med/surg check electrolytes Subjective ROS Limited/Unobtainable: No Interval Events: c/o pain Allergies: Coded Allergies: No Known Allergies (Unverified , 01/20/17) Objective Last 24 Hour Vital Signs Date Time Temp Pulse Resp B/P (MAP) Pulse Ox O2 Delivery O2 Flow Rate FiO2 07/21/17 12:00 18 07/21/17 12:00 98.8 105 20 126/81 99 Nasal Cannula 3.0 98.8 07/21/17 08:00 98.8 116 20 116/80 98 Nasal Cannula 3.0 98.8 07/21/17 08:00 18 07/21/17 04:00 97.2 117 20 122/85 97 97.2 07/21/17 04:00 Nasal Cannula 3.0 07/21/17 03:40 16 07/21/17 03:30 16 07/21/17 00:00 Nasal Cannula 3.0 07/21/17 00:00 98.2 125 20 123/82 91 98.2 07/21/17 00:00 16 07/20/17 20:00 16 07/20/17 20:00 97.9 124 20 124/83 98 97.9 07/20/17 20:00 Nasal Cannula 3.0 07/20/17 18:45 98.2 121 20 124/82 98 Nasal Cannula 3.0 98.2 07/20/17 15:30 111 16 116/78 99 Nasal Cannula 3.0 07/20/17 15:29 16 07/20/17 15:15 116 15 110/72 98 Nasal Cannula 3.0 07/20/17 15:00 112 16 112/86 98 Nasal Cannula 3.0 07/20/17 14:59 16 07/20/17 14:45 98.2 110 16 117/78 98 Nasal Cannula 3.0 98.2 Intake and Output 07/20/17 07/21/17 19:00 07:00 Intake Total 3677.5 ml 682.5 ml Output Total 1050 ml 800 ml Balance 2627.5 ml -117.5 ml Intake Oral 800 ml IV Total 2377.5 ml 682.5 ml Blood Product 250 ml Other 250 ml Output Urine Total 450 ml 650 ml Stool Total 0 ml Drainage Total 200 ml 150 ml Estimated Blood Loss 400 ml Objective General Appearance: WD/WN Lines, tubes and drains: peripheral HEENT: normocephalic, atraumatic Neck: non-tender, normal alignment Respiratory/Chest: chest wall non-tender, lungs clear Breasts: no masses Cardiovascular/Chest: normal peripheral pulses, normal rate Abdomen: normal bowel sounds, clean dressing Genitourinary/Rectal: normal genital exam, heme negative stool Extremities: normal range of motion, non-tender Skin Exam: normal pigmentation Microbiology Date/Time Source Procedure Growth Status 07/19/17 11:15 Abdominal Fluid Gram Stain - Final Resulted 07/19/17 11:15 Body Fluid Culture - Preliminary Strep Species, Gamma-Hemolytic Resulted 07/19/17 11:15 Abdominal Abscess Gram Stain - Final Resulted 07/19/17 11:15 Aerobic Culture - Preliminary Strep Species, Gamma-Hemolytic Resulted 07/19/17 11:15 Abdominal Abscess Anaerobic Culture Pending Resulted Laboratory Tests 07/21/17 10:35: White Blood Count 14.5#H, Red Blood Count 3.34L, Hemoglobin 10.3L, Hematocrit 30.1L, Mean Corpuscular Volume 90, Mean Corpuscular Hemoglobin 30.7, Mean Corpuscular Hemoglobin Concent 34.0, Red Cell Distribution Width 12.1, Platelet Count 406, Mean Platelet Volume 4.9L, Neutrophils (%) (Auto) 84.8H, Lymphocytes (%) (Auto) 7.4L, Monocytes (%) (Auto) 6.6, Eosinophils (%) (Auto) 0.4, Basophils (%) (Auto) 0.9, Sodium Level 135L, Potassium Level 4.5, Chloride Level 100, Carbon Dioxide Level 31, Anion Gap 4L, Blood Urea Nitrogen 5L, Creatinine 0.7, Estimat Glomerular Filtration Rate > 60, Glucose Level 97, Calcium Level 7.8L Current Medications Medications (Trade) Dose Ordered Sig/Kayy Route PRN Reason Start Time Stop Time Status Last Admin Dose Admin Acetaminophen (Tylenol) 650 mg Q6H PRN ORAL Mild Pain/Temp > 100.5 07/14/17 19:00 08/13/17 18:59 07/21/17 12:18 Calcium Carbonate (Tums) 1,000 mg Q4H PRN ORAL HEARTBURN/INDIGESTION 07/20/17 18:00 08/19/17 17:59 07/20/17 18:38 Dextrose (Dextrose 50%) STAT PRN IV Hypoglycemia 07/11/17 20:30 08/10/17 20:29 Diphenhydramine HCl (Benadryl) 25 mg Q6H PRN IVP Itching/Pruritis 07/20/17 13:00 07/22/17 12:59 Finasteride (Proscar) 5 mg DAILY ORAL 07/13/17 09:00 08/12/17 08:59 07/21/17 08:55 Fluconazole/ Sodium Chloride 100 ml @ 100 mls/hr Q24H IV 07/20/17 14:00 07/27/17 13:59 07/21/17 14:17 Heparin Sodium (Porcine) (Heparin 5000 units/ml) 5,000 units EVERY 12 HOURS SUBQ 07/11/17 21:00 08/02/17 08:59 07/21/17 08:57 Lansoprazole (Prevacid) 30 mg DAILY ORAL 07/12/17 09:00 08/11/17 08:59 07/21/17 08:55 Lorazepam (Ativan 2mg/ml 1ml) 1 mg Q4H PRN IV For Anxiety 07/15/17 22:15 07/22/17 22:14 07/20/17 22:03 Lorazepam (Ativan) 1 mg Q4H PRN ORAL Muscle Spasm 07/20/17 13:00 07/22/17 12:59 Miscellaneous Medication (LANGUAGE ASSISTANT Rate Change) 1 ea DAILY PRN MISC rate change 07/20/17 13:00 07/22/17 12:59 Miscellaneous Medication (LANGUAGE ASSISTANT shift volume) 1 ea Q12HR@0700,1900 MISC 07/20/17 19:00 07/22/17 18:59 07/21/17 07:00 Morphine Sulfate 30 ml @ 0 mls/hr Q24H PRN IV For Pain 07/20/17 19:43 07/22/17 19:42 07/21/17 12:09 Morphine Sulfate (Morphine Sulfate) 2 mg Q2H PRN IV Moderate Breakthru Pain (5-7) 07/20/17 19:45 07/27/17 19:44 Morphine Sulfate (Morphine Sulfate) 4 mg Q3H PRN SUBQ Severe Breakthru Pain (>7) 07/20/17 19:44 07/27/17 19:43 Naloxone HCl (Narcan) 0.1 mg Q1M PRN IVP RR<10/min OR SBP<90 mmHg 07/20/17 13:00 07/22/17 12:59 Nitroglycerin (Ntg) 0.4 mg Q5MIN X 3 DOSES PRN SL Prn Chest Pain 07/11/17 20:32 08/09/17 20:31 Ondansetron HCl (Zofran) 4 mg Q6H PRN IVP Nausea & Vomiting 07/11/17 20:32 08/10/17 20:31 Piperacillin Sod/ Tazobactam Sod 4.5 gm/Sodium Chloride 110 ml @ 27.5 mls/hr EVERY 8 HOURS IVPB 07/18/17 20:30 07/25/17 20:29 07/21/17 14:17 Potassium Chloride (K-Dur) 40 meq DAILY ORAL 07/20/17 09:00 08/19/17 08:59 07/21/17 08:56 Risperidone (RisperDAL) 3 mg BEDTIME ORAL 07/12/17 21:00 08/11/17 20:59 07/20/17 21:40 Sodium Chloride 1,000 ml @ 50 mls/hr Q20H IV 07/20/17 12:54 08/19/17 12:53 07/21/17 08:58 Temazepam (Restoril) 7.5 mg HSPRN PRN ORAL Insomnia 07/20/17 13:00 07/22/17 12:59 Brenda Martel MD Jul 21, 2017 14:34
[2017-07-21] MEDS ORDERED: Tubing IV Secondary IV ONE (15:11)
[2017-07-21] MEDS ORDERED: NS 275ml ONE (15:11)
[2017-07-21 16:00] VITALS: BP 123/72
--- NOTE | 2017-07-21 17:31 | Infectious Diseases Prog Note ---
Assessment/Plan Assessment/Plan ASSESSMENT: The patient is a 46-year-old male with; Bowel perf w/ development of 2 Abscess (subphrenic and pelvic) Cx: E coli( ESBL) and ENTEROCOCCUS AVIUM (turcios S) and Bact Fragilis - repeat Wnd Cx : Strp ( P ) Repeat CT with persistent LUQ fluid collection and 2 other fluid collections ; former suspect still residual abscess; latter 2 possible sterile vs infected s /p second exp lap and abscess draiange -s/p exploratory laparotomy, abdominal washout, evacuation of abscess, drain placement and abdominal closure 07/20; cx p -s/p CT guided drainage APOLLO fluid collection 07/19: Aspiration and drainage of left upper quadrant collection, yielding 150 mL of carin pus. Note that the collection could only be partially evacuated, however, despite confirmation of apparent adequate position of the drain.This may indicate high viscosity of the contents; cx pending s/p ex lap with left colectomy and transverse colostomy for perforated left colon, evacuation of intrabd abscess, abd washout w/ drain placement 07/09 -CT abd/p w/ 07/18: Postsurgical changes, as described, status post transverse colectomy, Jazz procedure, and placement of multiple surgical drains. Left upper quadrant intraperitoneal fluid collection, despite the presence of a surgical drain in the center of the collection. The presence of gas bubbles within rather than floating nondependently in the collection indicate that this fluid may be viscous. 2 other significant intraperitoneal collections,which do not appear to communicate, possibly loculated. Given presence of somewhat thick enhancing rim surrounding all of these, infected collections are certainly possible ( left paracolic gutter 5.8 cmx 4.3 cm x 8.3cm and R paracolic gutter, medial and inferior to tip R hepatic lobe 8cm x 6.4cm x8cm). Other than the gas within the left upper quadrant collection, previously demonstrated pneumoperitoneum has largely resolved. Left upper quadrant thick walled small bowel loops. Possibly reactive due to adjacent inflammation, enteritis is also possible. No evidence of bowel obstruction. Gallbladder wall edema versus pericholecystic fluid. -OR findings: The omentum was significantly thickened and adhesed to the small bowel and into the left lower quadrant. There was significant inflammatory process throughout the abdomen including a thickening of almost the entire peritoneal lining. The proximal portion of the jejunum was significantly thickened and had a rind of inflammatory infectious tissue on it. left transverse and descending colon, there was significant amount of thickening and significant disease process with some areas of mild ischemia noted and in the descending colon around the descending and sigmoid junction, there was a gross perforation with grossspillage of bowel contents noted in the area. there was a fluid collection/pelvic abscess, which was evacuated. There was a fluid collection in the right upper quadrant around the liver, which was evacuated and a large left upper quadrant subphrenic abscess with significant tissue rind and thickening around the stomach, spleen, peritoneum, and diaphragm in that location. CT : Evidence of perforation of hollow viscus with extensive amount of free air in the upper abdomen and some free fluid is well. Fever. SP Leukocytosis, recurrent- post op -Bcx NTD Elevated ALP -Abd US: Negative for gallstones. There is borderline gallbladder wall thickening, however. Most likely, this is reactive secondary to surrounding inflammation related to recent bowel perforation and surgery for such. However, the possibility of acalculous acute cholecystitis should be considered, and consideration for nuclear medicine hepatobiliary scanning if there is high clinical suspicion history of diarrhea, SP RAMSEY: Improved HTN COPD/asthma. Smoker. History of chronic constipation. Osteoarthritis. ? CAD/KS, hx PLAN: -Continue IV Merrem and Ampicillin ( better coverage of ESBL and enterococcal ) for intraabdominal abscess; cont on Fluconazole # 2 for now -plan to treat for 2 weeks from 07/20 , upon DC can be simplified to oral Amoxi and Invanz to complete the course -- 07/20 SP IV Zosyn #11 --07/18 SP Ertapenem, PO Amoxicillin #3 --07/16 SP Cefepime #2 --07/12 SP Zosyn d# 6 --SP Rocephin d# 5 -surgery following -wound care monitor chest x-ray. Nephrology, following Monitor ( Blood ) Cx Subjective Allergies: Coded Allergies: No Known Allergies (Unverified , 01/20/17) Subjective leukocytosis post op Objective Vital Signs Last 24 Hour Vital Signs Date Time Temp Pulse Resp B/P (MAP) Pulse Ox O2 Delivery O2 Flow Rate FiO2 07/21/17 16:00 18 07/21/17 12:00 18 07/21/17 12:00 98.8 105 20 126/81 99 Nasal Cannula 3.0 98.8 07/21/17 08:00 98.8 116 20 116/80 98 Nasal Cannula 3.0 98.8 07/21/17 08:00 18 07/21/17 04:00 97.2 117 20 122/85 97 97.2 07/21/17 04:00 Nasal Cannula 3.0 07/21/17 03:40 16 07/21/17 03:30 16 07/21/17 00:00 Nasal Cannula 3.0 07/21/17 00:00 98.2 125 20 123/82 91 98.2 07/21/17 00:00 16 07/20/17 20:00 16 07/20/17 20:00 97.9 124 20 124/83 98 97.9 07/20/17 20:00 Nasal Cannula 3.0 07/20/17 18:45 98.2 121 20 124/82 98 Nasal Cannula 3.0 98.2 Height (Feet): 5 Height (Inches): 9.00 Weight (Pounds): 136 HEENT: mucous membranes moist Respiratory/Chest: no respiratory distress Cardiovascular: regular rhythm Abdomen: non distended Microbiology Date/Time Source Procedure Growth Status 07/19/17 11:15 Abdominal Fluid Gram Stain - Final Resulted 07/19/17 11:15 Body Fluid Culture - Preliminary Strep Species, Gamma-Hemolytic Resulted 07/19/17 11:15 Abdominal Abscess Gram Stain - Final Resulted 07/19/17 11:15 Aerobic Culture - Preliminary Strep Species, Gamma-Hemolytic Resulted 07/19/17 11:15 Abdominal Abscess Anaerobic Culture Pending Resulted Laboratory Tests Test 07/21/17 10:35 White Blood Count 14.5 K/UL (4.8-10.8) #H Red Blood Count 3.34 M/UL (4.70-6.10) L Hemoglobin 10.3 G/DL (14.2-18.0) L Hematocrit 30.1 % (42.0-52.0) L Mean Corpuscular Volume 90 FL (80-99) Mean Corpuscular Hemoglobin 30.7 PG (27.0-31.0) Mean Corpuscular Hemoglobin Concent 34.0 G/DL (32.0-36.0) Red Cell Distribution Width 12.1 % (11.6-14.8) Platelet Count 406 K/UL (150-450) Mean Platelet Volume 4.9 FL (6.5-10.1) L Neutrophils (%) (Auto) 84.8 % (45.0-75.0) H Lymphocytes (%) (Auto) 7.4 % (20.0-45.0) L Monocytes (%) (Auto) 6.6 % (1.0-10.0) Eosinophils (%) (Auto) 0.4 % (0.0-3.0) Basophils (%) (Auto) 0.9 % (0.0-2.0) Sodium Level 135 MMOL/L (136-145) L Potassium Level 4.5 MMOL/L (3.5-5.1) Chloride Level 100 MMOL/L (98-107) Carbon Dioxide Level 31 MMOL/L (21-32) Anion Gap 4 mmol/L (5-15) L Blood Urea Nitrogen 5 mg/dL (7-18) L Creatinine 0.7 MG/DL (0.55-1.30) Estimat Glomerular Filtration Rate > 60 mL/min (>60) Glucose Level 97 MG/DL (74-106) Calcium Level 7.8 MG/DL (8.5-10.1) L Current Medications Medications (Trade) Dose Ordered Sig/Kayy Route PRN Reason Start Time Stop Time Status Last Admin Dose Admin Acetaminophen (Tylenol) 650 mg Q6H PRN ORAL Mild Pain/Temp > 100.5 07/14/17 19:00 08/13/17 18:59 07/21/17 12:18 Calcium Carbonate (Tums) 1,000 mg Q4H PRN ORAL HEARTBURN/INDIGESTION 07/20/17 18:00 08/19/17 17:59 07/20/17 18:38 Dextrose (Dextrose 50%) STAT PRN IV Hypoglycemia 07/11/17 20:30 08/10/17 20:29 Diphenhydramine HCl (Benadryl) 25 mg Q6H PRN IVP Itching/Pruritis 07/20/17 13:00 07/22/17 12:59 Finasteride (Proscar) 5 mg DAILY ORAL 07/13/17 09:00 08/12/17 08:59 07/21/17 08:55 Fluconazole/ Sodium Chloride 100 ml @ 100 mls/hr Q24H IV 07/20/17 14:00 07/27/17 13:59 07/21/17 14:17 Heparin Sodium (Porcine) (Heparin 5000 units/ml) 5,000 units EVERY 12 HOURS SUBQ 07/11/17 21:00 08/02/17 08:59 07/21/17 08:57 Lansoprazole (Prevacid) 30 mg DAILY ORAL 07/12/17 09:00 08/11/17 08:59 07/21/17 08:55 Lorazepam (Ativan 2mg/ml 1ml) 1 mg Q4H PRN IV For Anxiety 07/15/17 22:15 07/22/17 22:14 07/20/17 22:03 Lorazepam (Ativan) 1 mg Q4H PRN ORAL Muscle Spasm 07/20/17 13:00 07/22/17 12:59 Miscellaneous Medication (SCREEN PRINTING SUPERVISOR Rate Change) 1 ea DAILY PRN MISC rate change 07/20/17 13:00 07/22/17 12:59 Miscellaneous Medication (SCREEN PRINTING SUPERVISOR shift volume) 1 ea Q12HR@0700,1900 MISC 07/20/17 19:00 07/22/17 18:59 07/21/17 07:00 Morphine Sulfate 30 ml @ 0 mls/hr Q24H PRN IV For Pain 07/20/17 19:43 07/22/17 19:42 07/21/17 12:09 Morphine Sulfate (Morphine Sulfate) 2 mg Q2H PRN IV Moderate Breakthru Pain (5-7) 07/20/17 19:45 07/27/17 19:44 Morphine Sulfate (Morphine Sulfate) 4 mg Q3H PRN SUBQ Severe Breakthru Pain (>7) 07/20/17 19:44 07/27/17 19:43 Naloxone HCl (Narcan) 0.1 mg Q1M PRN IVP RR<10/min OR SBP<90 mmHg 07/20/17 13:00 07/22/17 12:59 Nitroglycerin (Ntg) 0.4 mg Q5MIN X 3 DOSES PRN SL Prn Chest Pain 07/11/17 20:32 08/09/17 20:31 Ondansetron HCl (Zofran) 4 mg Q6H PRN IVP Nausea & Vomiting 07/11/17 20:32 08/10/17 20:31 Piperacillin Sod/ Tazobactam Sod 4.5 gm/Sodium Chloride 110 ml @ 27.5 mls/hr EVERY 8 HOURS IVPB 07/18/17 20:30 07/25/17 20:29 07/21/17 14:17 Potassium Chloride (K-Dur) 40 meq DAILY ORAL 07/20/17 09:00 08/19/17 08:59 07/21/17 08:56 Risperidone (RisperDAL) 3 mg BEDTIME ORAL 07/12/17 21:00 08/11/17 20:59 07/20/17 21:40 Sodium Chloride 1,000 ml @ 50 mls/hr Q20H IV 07/20/17 12:54 08/19/17 12:53 07/21/17 08:58 Temazepam (Restoril) 7.5 mg HSPRN PRN ORAL Insomnia 07/20/17 13:00 07/22/17 12:59 STEPH TOLBERT M.D. Jul 21, 2017 17:31
[2017-07-21] MEDS: Ampicillin 2 GM in NS 110 ML IVPB SCH ×2 (18:39→23:27)
[2017-07-21] MEDS: Meropenem 1 GM in NS 55 ML IVPB SCH (18:45)
[2017-07-21 20:00] VITALS: BP 123/77
[2017-07-21] MEDS: LORazepam 1mg tab ORAL PRN (20:04)
[2017-07-21] MEDS: Tums 500mg ORAL PRN (20:04)
--- NOTE | 2017-07-21 20:30 | Operative Note - Dictated ---
DATE OF OPERATION: 07/20/2017 PREOPERATIVE DIAGNOSIS: 1. Large complex intra-abdominal abscess 2. Midline wound dehiscence. POSTOPERATIVE DIAGNOSIS: 1. Large complex intra-abdominal abscess 2. Midline wound dehiscence. OPERATION PERFORMED: 1. Exploratory laparotomy. 2. Evacuation of intra-abdominal abscess with debridement of necrotic infected tissues. 3. Abdominal washout. 4. Drain placement 5. Abdominal closure. ATTENDING SURGEON: Gilberto Michelle M.D. WILDLAND FIREFIGHTER: Dr. Samir Bella. ANESTHESIOLOGISTS: Reji Moran M.D. ANESTHESIA: General THERAPY DIRECTOR. SPECIMENS: Abdominal tissue sent to pathology for review. COMPLICATIONS: None. CONDITION: Stable. FLUIDS: Please see anesthesia records. ESTIMATED BLOOD LOSS: 400 mL. WOUND CLASSIFICATION: Class III-IV. DRAINS: Three ALIA drains, two in the left upper quadrant and one in the pelvis. ANTIBIOTICS: The patient on scheduled IV antibiotics prior to entering operating room. IMPLANTS: Midline mesh. COUNTS: Sponge and needle count correct x2. INDICATIONS FOR PROCEDURE: This is a 46-year-old male who initially presented with abdominal pain and after workup was identified to have a bowel perforation with large intra-abdominal abscess and fecal peritonitis. On initial operation on 07/08/2017, the patient was identified to have a perforated left colon with inflammatory tissues, stool spillage bowel ischemia, multiple intra-abdominal abscesses and both fecal and purulent peritonitis, which had likely been there for some time given the significant inflammatory reaction and well defined mid wall abscesses and fluid collections. Hostile abdomen and during that surgery, a left colectomy was performed along with evacuation of fecal and purulent abdominal fluid collections and abdominal washout with drain placement. Postoperatively, the patient developed a midline wound dehiscence, but no evisceration. The patient also in the course of recovery began to have a purulent drainage coming out of his left upper quadrant abdominal drain. Initially postoperatively both drains were serosanguineous and serous, but the left upper drain, which has started becoming purulent. The patient was nontoxic and stable, but purulent drainage increased over the subsequent days and CT scan was performed, which identified a complex fluid collection in the left upper quadrant and abdomen. Interventional Radiology placed a drain into collection and evacuated a fair amount of purulent fluid, but unfortunately was unable to completely evacuate the collection given the thick particulate rich fluid within a complex collection. Wound cultures grew out multiple organisms and given these findings, surgery was advised, indicated and recommended. After a long discussion with the patient, discussing the risks, benefits, and alternatives to surgery, consent was obtained for surgery, which was performed on 07/20/2017. OPERATIVE NOTE: The patient was taken to the operating room, placed on the operating table in supine position with bilateral arms out. All bony prominences were well padded. Preoperative time-out was taken identifying the patient, procedure, operative staff, and surgical staff. SCD's were placed. General anesthesia was induced and the patient was intubated. A Dickens catheter was placed using sterile technique. A NG tube was placed. The abdomen was then prepped and draped in standard surgical fashion. The prior colostomy site was covered with gauze and Tegaderm. The midline abdominal wound was identified and dehiscence was noted without evisceration. The prior surgical sutures were removed. Of note, during the prior surgery given the history, there was a hostile abdomen noted and similarly a very hostile abdomen was noted during the surgery as well. The small bowel and colon were matted together and no attempt was made for separation of the bowel. The fascia was slowly released from the bowel using blunt dissection and Metzenbaum scissors. The right upper quadrant was first evaluated and serous fluid collection from around the liver was evacuated. The subhepatic space was evaluated and no abscess or other abnormalities were identified. Attention was turned to the left upper quadrant where the stomach was noted. The left lobe of the liver was freed and a perisplenic large abscess collection was identified. Approximately 400-500 mL of purulent particulate fluid was evacuated with fibrinous debris. Debridement of the surrounding thick wall and fibrinous tissue was performed. Once this was completed, the remainder of the abdomen that could be inspected, but in certain areas including the left lower quadrant, right lower quadrant and pelvis, there were significant amount of adhesive process within the small bowel and given the CT findings of no significant collection in that area. They were not further explored. The drain in the left upper quadrant was identified and flushed and left in place. The abdomen was then irrigated with copious amounts of antibiotic saline until a retrieval of clear fluid. Further inspection of left upper quadrant identified a another smaller perisplenic abscess. The spleen was slowly dissected off its attachments and the remainder of the abscess cavity was evacuated. The abdomen was then washed out again. There was some venous oozing from small subcapsular splenic tear and hemostasis was obtained with FloSeal and Surgicel in this area. It was evaluated for about 10 minutes and hemostasis was noted. The abdomen was then washed again with copious amounts of antibiotic saline until clear. Once this was complete, decision made to place a second drain in the left upper quadrant, which was placed through the right abdominal wall and the prior pelvis drain was left in place and the two left upper quadrant drains were placed accordingly. Once this was complete, decision was made to turn attention to the midline abdominal wound. There was a prior fascial dehiscence and the fascial edges were debrided. The fascia was noted to be fairly weak, but with inflammatory tissue with edema and inflammatory tissue. Once it was then cleaned and dried, fascia was from the fat for approximately 1 cm to better visualize the fascial edges. Multiple 0 Prolene interrupted sutures were then used to slowly reapproximate the midline wound. In the periumbilical area, there was a fair amount of dehiscence with some mild loss of domain and therefore decision was made to place a coated mesh. Atrium coated mesh was placed to bridge the fascial defect. It was tacked to the abdominal wall using 2-0 Prolene sutures. Once good purchase was obtained, there are remaining portions of the midline fascia that could be reapproximated without significant tension were reapproximated. The wounds were reapproximated with 0 Prolene sutures. Once this was complete, the midline wound was cleansed and hemostasis obtained with electrocautery. At this time, a decision was made to begin conclusion of the procedure. An ostomy bag was placed on the prior colostomy. Midline wound dressings were placed as well as drain dressings. The drains were placed to bulb suction. The patient tolerated the procedure well, was extubated and taken to postanesthesia care unit in stable condition. Gilberto Michelle M.D. DR: TYLER JOB#: [id number] CC: ONDINA
[2017-07-22] VITALS: BP 128/61
[2017-07-22] MEDS: Meropenem 1 GM in NS 55 ML IVPB SCH ×3 (02:41→18:17)
[2017-07-22] MEDS: LORazepam 1mg tab ORAL PRN ×2 (02:41→09:23)
[2017-07-22 04:00] VITALS: BP 124/71
[2017-07-22] MEDS ORDERED: AMPICILLIN 2 GM ONE (04:16)
[2017-07-22] MEDS: Ampicillin 2 GM in NS 110 ML IVPB SCH ×3 (04:48→18:17)
[2017-07-22] MEDS: PCA Morphine 1mg/ml 30 ML IV PRN ×2 (06:05→16:24)
[2017-07-22] MEDS: PCA shift volume MISC SCH (07:24)
[2017-07-22 08:41] VITALS: BP 126/74
[2017-07-22] MEDS: Heparin 5000 units/ml inj SUBQ SCH ×2 (09:26→22:26)
[2017-07-22 11:01] LABS: HEMATOCRIT 29.4 % (42.0-52.0); HEMOGLOBIN 9.9 G/DL (14.2-18.0); MEAN CORPUSCULAR VOLUME 89 FL (80-99); PLATELET COUNT 438 K/UL (150-450); RED BLOOD COUNT 3.28 M/UL (4.70-6.10); RED CELL DISTRIBUTION WIDTH 12.2 % (11.6-14.8); WHITE BLOOD COUNT 15.7 K/UL (4.8-10.8)
[2017-07-22 11:19] LABS: ALANINE AMINOTRANSFERASE 20 U/L (12-78); ALBUMIN 1.5 G/DL (3.4-5.0); ALBUMIN/GLOBULIN RATIO 0.4 (1.0-2.7); ALKALINE PHOSPHATASE 186 U/L (46-116); ANION GAP 6 mmol/L (5-15); ASPARTATE AMINO TRANSFERASE 24 U/L (15-37); BILIRUBIN,TOTAL 0.4 MG/DL (0.2-1.0); BLOOD UREA NITROGEN 2 mg/dL (7-18); CALCIUM 7.9 MG/DL (8.5-10.1); CARBON DIOXIDE 31 MMOL/L (21-32); CHLORIDE 97 MMOL/L (98-107); CREATININE 0.5 MG/DL (0.55-1.30); POTASSIUM 3.8 MMOL/L (3.5-5.1); SODIUM 134 MMOL/L (136-145)
[2017-07-22 12:00] VITALS: BP 117/80
--- NOTE | 2017-07-22 13:17 | General Surgery Progress Note ---
General Surgery-Progress Note Subjective Procedure Performed exploratory laparotomy, abdominal washout, evacuation of abscess, drain placement and abdominal closure Symptoms: improved Additional Comments pain improved. no n/v/f/c. tolerating diet. ambulatory. good uop. using curtain framer. overall looks better. Objective Last 24 Hour Vital Signs Date Time Temp Pulse Resp B/P (MAP) Pulse Ox O2 Delivery O2 Flow Rate FiO2 07/22/17 12:00 98.4 100 22 117/80 96 Room Air 98.4 07/22/17 08:41 97.5 106 20 126/74 Nasal Cannula 97.5 07/22/17 08:00 18 07/22/17 06:35 97.3 07/22/17 06:05 97.3 07/22/17 04:00 18 07/22/17 04:00 97.3 109 18 124/71 96 97.3 07/22/17 00:00 97.9 104 18 128/61 96 97.9 07/22/17 00:00 18 07/21/17 20:00 97.3 111 18 123/77 92 97.3 07/21/17 20:00 18 07/21/17 16:00 97.5 99 22 123/72 96 Nasal Cannula 2.0 97.5 07/21/17 16:00 18 I&O Intake and Output 07/21/17 07/22/17 19:00 07:00 Intake Total 1072.5 ml 1200 ml Output Total 2640 ml 1480 ml Balance -1567.5 ml -280 ml Intake Oral 840 ml 800 ml IV Total 232.5 ml 400 ml Output Urine Total 2400 ml 1450 ml Stool Total 0 ml Drainage Total 240 ml 30 ml Dressing: saturated Wound: clean, other - midline wound holding well. wound intact. skin clean. no signs of infection. granulation tissue forming. Drains: reginaldo - 3 reginaldo drains Cardiovascular: RSR Respiratory: clear Abdomen: soft, flat, tenderness Extremities: no edema, no tenderness, no cyanosis Laboratory Tests Test 07/22/17 10:50 White Blood Count 15.7 K/UL (4.8-10.8) H Red Blood Count 3.28 M/UL (4.70-6.10) L Hemoglobin 9.9 G/DL (14.2-18.0) L Hematocrit 29.4 % (42.0-52.0) L Mean Corpuscular Volume 89 FL (80-99) Mean Corpuscular Hemoglobin 30.2 PG (27.0-31.0) Mean Corpuscular Hemoglobin Concent 33.8 G/DL (32.0-36.0) Red Cell Distribution Width 12.2 % (11.6-14.8) Platelet Count 438 K/UL (150-450) Mean Platelet Volume 4.9 FL (6.5-10.1) L Neutrophils (%) (Auto) % (45.0-75.0) Lymphocytes (%) (Auto) % (20.0-45.0) Monocytes (%) (Auto) % (1.0-10.0) Eosinophils (%) (Auto) % (0.0-3.0) Basophils (%) (Auto) % (0.0-2.0) Differential Total Cells Counted 100 Neutrophils % (Manual) 89 % (45-75) H Lymphocytes % (Manual) 6 % (20-45) L Monocytes % (Manual) 5 % (1-10) Eosinophils % (Manual) 0 % (0-3) Basophils % (Manual) 0 % (0-2) Band Neutrophils 0 % (0-8) Platelet Estimate Adequate Platelet Morphology Normal Hypochromasia 1+ Sodium Level 134 MMOL/L (136-145) L Potassium Level 3.8 MMOL/L (3.5-5.1) Chloride Level 97 MMOL/L (98-107) L Carbon Dioxide Level 31 MMOL/L (21-32) Anion Gap 6 mmol/L (5-15) Blood Urea Nitrogen 2 mg/dL (7-18) L Creatinine 0.5 MG/DL (0.55-1.30) L Estimat Glomerular Filtration Rate > 60 mL/min (>60) Glucose Level 100 MG/DL (74-106) Calcium Level 7.9 MG/DL (8.5-10.1) L Total Bilirubin 0.4 MG/DL (0.2-1.0) Aspartate Amino Transf (AST/SGOT) 24 U/L (15-37) Alanine Aminotransferase (ALT/SGPT) 20 U/L (12-78) Alkaline Phosphatase 186 U/L (46-116) H Total Protein 5.4 G/DL (6.4-8.2) L Albumin 1.5 G/DL (3.4-5.0) L Globulin 3.9 g/dL Albumin/Globulin Ratio 0.4 (1.0-2.7) L Assessment Post-op Diagnosis abdominal dehiscence, intraabdominal abscess Plan Problems: (1) Perforated abdominal viscus Assessment & Plan: perforated abdominal viscus as noted on CT. exam with peritonitis generalized but with focus in LLQ. history of psych illness but currently AAOx4 and cooperative with exam. poor historian. possible drug seeking behavior. s/p Ex lap with abdominal washout, left colectomy and creation of transverse colostomy. Noted to have larger perforation in sigmoid likely stercoarl given operative findings. large left perisplenic abscess evacuated. drains placed. post operatively improved but after a few days noted to have purulent drainage out of left upper quadrant drain. CT demonstrated reaccumulation of large complex abscess despite extensive washout on initial operation. IR drain placed and pus evacuated but could not resolve complex collection. micro with multiorganism. midline wound dehiscence. decision made for re-exploration with washout, drains, and midline closure. s/p re-exploration with washout, drains, and midline closure on 07/20. large complex abscess noted, evacuated, washout, drains placed. midline fascia closed. doing well. recovering. improved pain control with PLACE CHANGE ROOF BOLTER. afebrile, HD stable, labs reviewed. leukocytosis midline wound holding. packing and dressings okay. 3 drains. one in pelvis with serous output. one in superficial left upper quadrant with serosang output. one in deep left upper quadrante with thick serosang output (hopefully not reaccumulation of abscess forming and may be surgicell/flowseal that is being liquified and removed) Midline wound skin reapproximated with bedside delayed primary closure today. will evaluate wound daily. leave dressings. -full liquids -pt/ot, ambulate and oob -PLACE CHANGE ROOF BOLTER for pain control -cont IV Abx. appreciate ID input. Gilberto Michelle Jul 22, 2017 13:17
[2017-07-22 16:00] VITALS: BP 125/78
[2017-07-22] MEDS: Tums 500mg ORAL PRN (16:26)
--- NOTE | 2017-07-22 18:05 | Nephrology Progress Note ---
Assessment/Plan Problem List: (1) ARF (acute renal failure) (2) UTI (urinary tract infection) (3) Psychiatric disorder (4) Acute abdomen Assessment Status: WBCs wnl had multi abdominal drains acute renal failure- extended left colectomy due to perf transverse colostomy creation Plan Plan: per charles, 07/20/17 Mag and K supplement as needed DC horan DC IV PT advance diet Post op ( OP 07/08/17) Horan- 2D echo normal Ej Fx Albumin bollous monitor renal parameters K and Phos and Mag supplement as needed Subjective ROS Limited/Unobtainable: No Constitutional: Reports: malaise Objective Objective Last 24 Hour Vital Signs Date Time Temp Pulse Resp B/P (MAP) Pulse Ox O2 Delivery O2 Flow Rate FiO2 07/22/17 16:54 98.4 07/22/17 16:24 98.4 07/22/17 16:00 97.7 110 18 125/78 97 Room Air 97.7 07/22/17 16:00 16 07/22/17 12:00 98.4 100 22 117/80 96 Room Air 98.4 07/22/17 12:00 16 07/22/17 08:41 97.5 106 20 126/74 Nasal Cannula 97.5 07/22/17 08:00 18 07/22/17 06:05 97.3 07/22/17 04:00 18 07/22/17 04:00 97.3 109 18 124/71 96 97.3 07/22/17 00:00 97.9 104 18 128/61 96 97.9 07/22/17 00:00 18 07/21/17 20:00 97.3 111 18 123/77 92 97.3 07/21/17 20:00 18 Intake and Output 07/21/17 07/22/17 19:00 07:00 Intake Total 1072.5 ml 1250 ml Output Total 2640 ml 1480 ml Balance -1567.5 ml -230 ml Intake Oral 840 ml 800 ml IV Total 232.5 ml 450 ml Output Urine Total 2400 ml 1450 ml Stool Total 0 ml Drainage Total 240 ml 30 ml Laboratory Tests 07/22/17 10:50: White Blood Count 15.7H, Red Blood Count 3.28L, Hemoglobin 9.9L, Hematocrit 29.4L, Mean Corpuscular Volume 89, Mean Corpuscular Hemoglobin 30.2, Mean Corpuscular Hemoglobin Concent 33.8, Red Cell Distribution Width 12.2, Platelet Count 438, Mean Platelet Volume 4.9L, Neutrophils (%) (Auto) , Lymphocytes (%) ( Auto) , Monocytes (%) (Auto) , Eosinophils (%) (Auto) , Basophils (%) (Auto) , Differential Total Cells Counted 100, Neutrophils % (Manual) 89H, Lymphocytes % (Manual) 6L, Monocytes % (Manual) 5, Eosinophils % (Manual) 0, Basophils % ( Manual) 0, Band Neutrophils 0, Platelet Estimate Adequate, Platelet Morphology Normal, Hypochromasia 1+, Sodium Level 134L, Potassium Level 3.8, Chloride Level 97L, Carbon Dioxide Level 31, Anion Gap 6, Blood Urea Nitrogen 2L, Creatinine 0.5L, Estimat Glomerular Filtration Rate > 60, Glucose Level 100, Calcium Level 7.9L, Total Bilirubin 0.4, Aspartate Amino Transf (AST/SGOT) 24, Alanine Aminotransferase (ALT/SGPT) 20, Alkaline Phosphatase 186H, Total Protein 5.4L, Albumin 1.5L, Globulin 3.9, Albumin/Globulin Ratio 0.4L Height (Feet): 5 Height (Inches): 9.00 Weight (Pounds): 132 General Appearance: no apparent distress Objective no other change NOEMY MARK 18, 2018 18:05
[2017-07-22 20:00] VITALS: BP 128/85
--- NOTE | 2017-07-22 21:56 | Pulmonology Progress Note ---
Assessment/Plan Problems: (1) Perforated abdominal viscus (2) ARF (acute renal failure) (3) Psychosis (4) Acute constipation (5) Amphetamine abuse Assessment/Plan tolerated surgery very well. s/p abscess removal iv fluids continue anbx f/u clinically pain management med/surg check electrolytes Subjective ROS Limited/Unobtainable: No Allergies: Coded Allergies: No Known Allergies (Unverified , 01/20/17) Objective Last 24 Hour Vital Signs Date Time Temp Pulse Resp B/P (MAP) Pulse Ox O2 Delivery O2 Flow Rate FiO2 07/22/17 20:00 99.2 118 18 128/85 92 99.2 07/22/17 16:54 98.4 07/22/17 16:24 98.4 07/22/17 16:00 97.7 110 18 125/78 97 Room Air 97.7 07/22/17 16:00 16 07/22/17 12:00 98.4 100 22 117/80 96 Room Air 98.4 07/22/17 12:00 16 07/22/17 08:41 97.5 106 20 126/74 Nasal Cannula 97.5 07/22/17 08:00 18 07/22/17 06:05 97.3 07/22/17 04:00 18 07/22/17 04:00 97.3 109 18 124/71 96 97.3 07/22/17 00:00 97.9 104 18 128/61 96 97.9 07/22/17 00:00 18 Intake and Output 07/21/17 07/22/17 19:00 07:00 Intake Total 1072.5 ml 1250 ml Output Total 2640 ml 1480 ml Balance -1567.5 ml -230 ml Intake Oral 840 ml 800 ml IV Total 232.5 ml 450 ml Output Urine Total 2400 ml 1450 ml Stool Total 0 ml Drainage Total 240 ml 30 ml Objective General Appearance: WD/WN Lines, tubes and drains: peripheral HEENT: normocephalic, atraumatic Neck: non-tender, normal alignment Respiratory/Chest: chest wall non-tender, lungs clear Breasts: no masses Cardiovascular/Chest: normal peripheral pulses, normal rate Abdomen: normal bowel sounds, clean dressing Genitourinary/Rectal: normal genital exam, heme negative stool Extremities: normal range of motion, non-tender Skin Exam: normal pigmentation Laboratory Tests 07/22/17 10:50: White Blood Count 15.7H, Red Blood Count 3.28L, Hemoglobin 9.9L, Hematocrit 29.4L, Mean Corpuscular Volume 89, Mean Corpuscular Hemoglobin 30.2, Mean Corpuscular Hemoglobin Concent 33.8, Red Cell Distribution Width 12.2, Platelet Count 438, Mean Platelet Volume 4.9L, Neutrophils (%) (Auto) , Lymphocytes (%) ( Auto) , Monocytes (%) (Auto) , Eosinophils (%) (Auto) , Basophils (%) (Auto) , Differential Total Cells Counted 100, Neutrophils % (Manual) 89H, Lymphocytes % (Manual) 6L, Monocytes % (Manual) 5, Eosinophils % (Manual) 0, Basophils % ( Manual) 0, Band Neutrophils 0, Platelet Estimate Adequate, Platelet Morphology Normal, Hypochromasia 1+, Sodium Level 134L, Potassium Level 3.8, Chloride Level 97L, Carbon Dioxide Level 31, Anion Gap 6, Blood Urea Nitrogen 2L, Creatinine 0.5L, Estimat Glomerular Filtration Rate > 60, Glucose Level 100, Calcium Level 7.9L, Total Bilirubin 0.4, Aspartate Amino Transf (AST/SGOT) 24, Alanine Aminotransferase (ALT/SGPT) 20, Alkaline Phosphatase 186H, Total Protein 5.4L, Albumin 1.5L, Globulin 3.9, Albumin/Globulin Ratio 0.4L Current Medications Medications (Trade) Dose Ordered Sig/Kayy Route PRN Reason Start Time Stop Time Status Last Admin Dose Admin Acetaminophen (Tylenol) 650 mg Q6H PRN ORAL Mild Pain/Temp > 100.5 07/14/17 19:00 08/13/17 18:59 07/21/17 12:18 Ampicillin 2 gm/ Sodium Chloride 110 ml @ 220 mls/hr EVERY 6 HOURS IVPB 07/21/17 18:30 07/28/17 18:29 07/22/17 18:17 Calcium Carbonate (Tums) 1,000 mg Q4H PRN ORAL HEARTBURN/INDIGESTION 07/20/17 18:00 08/19/17 17:59 07/22/17 16:26 Dextrose (Dextrose 50%) STAT PRN IV Hypoglycemia 07/11/17 20:30 08/10/17 20:29 Finasteride (Proscar) 5 mg DAILY ORAL 07/13/17 09:00 08/12/17 08:59 07/22/17 09:23 Fluconazole/ Sodium Chloride 100 ml @ 100 mls/hr Q24H IV 07/20/17 14:00 07/27/17 13:59 07/22/17 15:07 Heparin Sodium (Porcine) (Heparin 5000 units/ml) 5,000 units EVERY 12 HOURS SUBQ 07/11/17 21:00 08/02/17 08:59 07/22/17 09:26 Lansoprazole (Prevacid) 30 mg DAILY ORAL 07/12/17 09:00 08/11/17 08:59 07/22/17 10:24 Lorazepam (Ativan 2mg/ml 1ml) 1 mg Q4H PRN IV For Anxiety 07/15/17 22:15 07/22/17 22:14 07/20/17 22:03 Meropenem 1 gm/ Sodium Chloride 55 ml @ 110 mls/hr Q8H IVPB 07/21/17 19:00 07/26/17 18:59 07/22/17 18:17 Morphine Sulfate (Morphine Sulfate) 2 mg Q2H PRN IV Moderate Breakthru Pain (5-7) 07/20/17 19:45 07/27/17 19:44 Morphine Sulfate (Morphine Sulfate) 4 mg Q3H PRN SUBQ Severe Breakthru Pain (>7) 07/20/17 19:44 07/27/17 19:43 Nitroglycerin (Ntg) 0.4 mg Q5MIN X 3 DOSES PRN SL Prn Chest Pain 07/11/17 20:32 08/09/17 20:31 Ondansetron HCl (Zofran) 4 mg Q6H PRN IVP Nausea & Vomiting 07/11/17 20:32 08/10/17 20:31 Potassium Chloride (K-Dur) 40 meq DAILY ORAL 07/20/17 09:00 08/19/17 08:59 07/22/17 09:23 Risperidone (RisperDAL) 3 mg BEDTIME ORAL 07/12/17 21:00 08/11/17 20:59 07/21/17 20:04 Sodium Chloride 1,000 ml @ 50 mls/hr Q20H IV 07/20/17 12:54 08/19/17 12:53 07/22/17 04:48 Brenda Martel MD Jul 22, 2017 21:56
--- NOTE | 2017-07-22 22:20 | General Progress Note ---
Assessment/Plan Assessment/Plan Schizophrenia CPT Encephalopathy PLAN: - increase the risperidone to 4 mg at bedtime. Subjective Date patient seen: Jul 22, 2017 Allergies: Coded Allergies: No Known Allergies (Unverified , 01/20/17) Subjective the pt is calmer Objective Last 24 Hour Vital Signs Date Time Temp Pulse Resp B/P (MAP) Pulse Ox O2 Delivery O2 Flow Rate FiO2 07/22/17 20:00 99.2 118 18 128/85 92 99.2 07/22/17 16:54 98.4 07/22/17 16:24 98.4 07/22/17 16:00 97.7 110 18 125/78 97 Room Air 97.7 07/22/17 16:00 16 07/22/17 12:00 98.4 100 22 117/80 96 Room Air 98.4 07/22/17 12:00 16 07/22/17 08:41 97.5 106 20 126/74 Nasal Cannula 97.5 07/22/17 08:00 18 07/22/17 06:05 97.3 07/22/17 04:00 18 07/22/17 04:00 97.3 109 18 124/71 96 97.3 07/22/17 00:00 97.9 104 18 128/61 96 97.9 07/22/17 00:00 18 Intake and Output 07/21/17 07/22/17 19:00 07:00 Intake Total 1072.5 ml 1250 ml Output Total 2640 ml 1480 ml Balance -1567.5 ml -230 ml Intake Oral 840 ml 800 ml IV Total 232.5 ml 450 ml Output Urine Total 2400 ml 1450 ml Stool Total 0 ml Drainage Total 240 ml 30 ml Laboratory Tests 07/22/17 10:50: White Blood Count 15.7H, Red Blood Count 3.28L, Hemoglobin 9.9L, Hematocrit 29.4L, Mean Corpuscular Volume 89, Mean Corpuscular Hemoglobin 30.2, Mean Corpuscular Hemoglobin Concent 33.8, Red Cell Distribution Width 12.2, Platelet Count 438, Mean Platelet Volume 4.9L, Neutrophils (%) (Auto) , Lymphocytes (%) ( Auto) , Monocytes (%) (Auto) , Eosinophils (%) (Auto) , Basophils (%) (Auto) , Differential Total Cells Counted 100, Neutrophils % (Manual) 89H, Lymphocytes % (Manual) 6L, Monocytes % (Manual) 5, Eosinophils % (Manual) 0, Basophils % ( Manual) 0, Band Neutrophils 0, Platelet Estimate Adequate, Platelet Morphology Normal, Hypochromasia 1+, Sodium Level 134L, Potassium Level 3.8, Chloride Level 97L, Carbon Dioxide Level 31, Anion Gap 6, Blood Urea Nitrogen 2L, Creatinine 0.5L, Estimat Glomerular Filtration Rate > 60, Glucose Level 100, Calcium Level 7.9L, Total Bilirubin 0.4, Aspartate Amino Transf (AST/SGOT) 24, Alanine Aminotransferase (ALT/SGPT) 20, Alkaline Phosphatase 186H, Total Protein 5.4L, Albumin 1.5L, Globulin 3.9, Albumin/Globulin Ratio 0.4L Height (Feet): 5 Height (Inches): 9.00 Weight (Pounds): 132 Idalia Montanez M.D. Jul 22, 2017 22:20
--- NOTE | 2017-07-22 22:21 | Psych Consult Progress Note ---
Psych Consult Progress Note Consult 07/21/17 Schizophrenia CPT Encephalopathy PLAN: - increase the risperidone to 4 mg at bedtime. Vital Signs Last 24 Hour Vital Signs Date Time Temp Pulse Resp B/P (MAP) Pulse Ox O2 Delivery O2 Flow Rate FiO2 07/22/17 20:00 99.2 118 18 128/85 92 99.2 07/22/17 16:54 98.4 07/22/17 16:24 98.4 07/22/17 16:00 97.7 110 18 125/78 97 Room Air 97.7 07/22/17 16:00 16 07/22/17 12:00 98.4 100 22 117/80 96 Room Air 98.4 07/22/17 12:00 16 07/22/17 08:41 97.5 106 20 126/74 Nasal Cannula 97.5 07/22/17 08:00 18 07/22/17 06:05 97.3 07/22/17 04:00 18 07/22/17 04:00 97.3 109 18 124/71 96 97.3 07/22/17 00:00 97.9 104 18 128/61 96 97.9 07/22/17 00:00 18 Labs Laboratory Tests Test 07/22/17 10:50 White Blood Count 15.7 K/UL (4.8-10.8) H Red Blood Count 3.28 M/UL (4.70-6.10) L Hemoglobin 9.9 G/DL (14.2-18.0) L Hematocrit 29.4 % (42.0-52.0) L Mean Corpuscular Volume 89 FL (80-99) Mean Corpuscular Hemoglobin 30.2 PG (27.0-31.0) Mean Corpuscular Hemoglobin Concent 33.8 G/DL (32.0-36.0) Red Cell Distribution Width 12.2 % (11.6-14.8) Platelet Count 438 K/UL (150-450) Mean Platelet Volume 4.9 FL (6.5-10.1) L Neutrophils (%) (Auto) % (45.0-75.0) Lymphocytes (%) (Auto) % (20.0-45.0) Monocytes (%) (Auto) % (1.0-10.0) Eosinophils (%) (Auto) % (0.0-3.0) Basophils (%) (Auto) % (0.0-2.0) Differential Total Cells Counted 100 Neutrophils % (Manual) 89 % (45-75) H Lymphocytes % (Manual) 6 % (20-45) L Monocytes % (Manual) 5 % (1-10) Eosinophils % (Manual) 0 % (0-3) Basophils % (Manual) 0 % (0-2) Band Neutrophils 0 % (0-8) Platelet Estimate Adequate Platelet Morphology Normal Hypochromasia 1+ Sodium Level 134 MMOL/L (136-145) L Potassium Level 3.8 MMOL/L (3.5-5.1) Chloride Level 97 MMOL/L (98-107) L Carbon Dioxide Level 31 MMOL/L (21-32) Anion Gap 6 mmol/L (5-15) Blood Urea Nitrogen 2 mg/dL (7-18) L Creatinine 0.5 MG/DL (0.55-1.30) L Estimat Glomerular Filtration Rate > 60 mL/min (>60) Glucose Level 100 MG/DL (74-106) Calcium Level 7.9 MG/DL (8.5-10.1) L Total Bilirubin 0.4 MG/DL (0.2-1.0) Aspartate Amino Transf (AST/SGOT) 24 U/L (15-37) Alanine Aminotransferase (ALT/SGPT) 20 U/L (12-78) Alkaline Phosphatase 186 U/L (46-116) H Total Protein 5.4 G/DL (6.4-8.2) L Albumin 1.5 G/DL (3.4-5.0) L Globulin 3.9 g/dL Albumin/Globulin Ratio 0.4 (1.0-2.7) L Medications Current Medications Medications (Trade) Dose Ordered Sig/Kayy Route PRN Reason Start Time Stop Time Status Last Admin Dose Admin Acetaminophen (Tylenol) 650 mg Q6H PRN ORAL Mild Pain/Temp > 100.5 07/14/17 19:00 08/13/17 18:59 07/21/17 12:18 Ampicillin 2 gm/ Sodium Chloride 110 ml @ 220 mls/hr EVERY 6 HOURS IVPB 07/21/17 18:30 07/28/17 18:29 07/22/17 18:17 Calcium Carbonate (Tums) 1,000 mg Q4H PRN ORAL HEARTBURN/INDIGESTION 07/20/17 18:00 08/19/17 17:59 07/22/17 16:26 Dextrose (Dextrose 50%) STAT PRN IV Hypoglycemia 07/11/17 20:30 08/10/17 20:29 Finasteride (Proscar) 5 mg DAILY ORAL 07/13/17 09:00 08/12/17 08:59 07/22/17 09:23 Fluconazole/ Sodium Chloride 100 ml @ 100 mls/hr Q24H IV 07/20/17 14:00 07/27/17 13:59 07/22/17 15:07 Heparin Sodium (Porcine) (Heparin 5000 units/ml) 5,000 units EVERY 12 HOURS SUBQ 07/11/17 21:00 08/02/17 08:59 07/22/17 09:26 Lansoprazole (Prevacid) 30 mg DAILY ORAL 07/12/17 09:00 08/11/17 08:59 07/22/17 10:24 Meropenem 1 gm/ Sodium Chloride 55 ml @ 110 mls/hr Q8H IVPB 07/21/17 19:00 07/26/17 18:59 07/22/17 18:17 Morphine Sulfate (Morphine Sulfate) 2 mg Q2H PRN IV Moderate Breakthru Pain (5-7) 07/20/17 19:45 07/27/17 19:44 Morphine Sulfate (Morphine Sulfate) 4 mg Q3H PRN SUBQ Severe Breakthru Pain (>7) 07/20/17 19:44 07/27/17 19:43 Nitroglycerin (Ntg) 0.4 mg Q5MIN X 3 DOSES PRN SL Prn Chest Pain 07/11/17 20:32 08/09/17 20:31 Ondansetron HCl (Zofran) 4 mg Q6H PRN IVP Nausea & Vomiting 07/11/17 20:32 08/10/17 20:31 Potassium Chloride (K-Dur) 40 meq DAILY ORAL 07/20/17 09:00 08/19/17 08:59 07/22/17 09:23 Risperidone (RisperDAL) 3 mg BEDTIME ORAL 07/12/17 21:00 08/11/17 20:59 07/21/17 20:04 Sodium Chloride 1,000 ml @ 50 mls/hr Q20H IV 07/20/17 12:54 08/19/17 12:53 07/22/17 04:48 Problems: Idalia Montanez M.D. Jul 22, 2017 22:21
[2017-07-23] VITALS: BP 117/78
[2017-07-23] MEDS: Ampicillin 2 GM in NS 110 ML IVPB SCH ×4 (00:19→18:13)
[2017-07-23] MEDS: Morphine Sulfate 4mg/ml Inj SUBQ PRN ×3 (01:08→09:16)
[2017-07-23 04:00] VITALS: BP 119/82
[2017-07-23] MEDS: Meropenem 1 GM in NS 55 ML IVPB SCH ×3 (04:29→20:29)
[2017-07-23 08:00] VITALS: BP 136/78
[2017-07-23 08:16] LABS: HEMATOCRIT 29.9 % (42.0-52.0); MEAN CORPUSCULAR VOLUME 91 FL (80-99); PLATELET COUNT 452 K/UL (150-450); RED BLOOD COUNT 3.28 M/UL (4.70-6.10); RED CELL DISTRIBUTION WIDTH 12.5 % (11.6-14.8); WHITE BLOOD COUNT 14.9 K/UL (4.8-10.8)
[2017-07-23 08:54] LABS: ALANINE AMINOTRANSFERASE 14 U/L (12-78); ALBUMIN 1.6 G/DL (3.4-5.0); ALBUMIN/GLOBULIN RATIO 0.4 (1.0-2.7); ALKALINE PHOSPHATASE 180 U/L (46-116); ANION GAP 4 mmol/L (5-15); ASPARTATE AMINO TRANSFERASE 21 U/L (15-37); BILIRUBIN,TOTAL 0.4 MG/DL (0.2-1.0); BLOOD UREA NITROGEN 2 mg/dL (7-18); CARBON DIOXIDE 35 MMOL/L (21-32); CHLORIDE 98 MMOL/L (98-107); CREATININE 0.7 MG/DL (0.55-1.30); POTASSIUM 4.9 MMOL/L (3.5-5.1); SODIUM 137 MMOL/L (136-145)
[2017-07-23 09:06] LABS: PHOSPHORUS 3.7 MG/DL (2.5-4.9)
[2017-07-23] MEDS: Heparin 5000 units/ml inj SUBQ SCH ×2 (09:26→21:25)
--- NOTE | 2017-07-23 11:00 | GI Progress Note ---
Assessment/Plan Problems: (1) Psychiatric disorder ICD Codes: F99 - Mental disorder, not otherwise specified SNOMED: 34571568, 971125914 (2) Amphetamine abuse ICD Codes: F15.10 - Other stimulant abuse, uncomplicated SNOMED: 77999247 (3) Opiate dependence ICD Codes: F11.20 - Opioid dependence, uncomplicated SNOMED: 45836512 Qualifiers: Qualified Codes: F11.20 - Opioid dependence, uncomplicated (4) Perforated abdominal viscus SNOMED: 629740187 Status: doing well, stable, progressing Status Narrative Discussed with Dr. Castro. Assessment/Plan s/p Exploratory laparotomy, partial bowel resection fu surgical recs IVFs diet adv per surgery colostomy care prn transfusions serial imaging prn pain mgmt fu labs Subjective Subjective doing well Objective Last 24 Hour Vital Signs Date Time Temp Pulse Resp B/P (MAP) Pulse Ox O2 Delivery O2 Flow Rate FiO2 07/23/17 08:00 97.2 113 20 136/78 96 97.2 07/23/17 05:00 98.8 07/23/17 04:00 98.8 103 18 119/82 97 98.8 07/23/17 00:00 99.6 111 18 117/78 98 99.6 07/22/17 20:00 16 07/22/17 20:00 99.2 118 18 128/85 92 99.2 07/22/17 19:07 Room Air 21 07/22/17 19:07 97 Room Air 21 07/22/17 16:54 98.4 07/22/17 16:24 98.4 07/22/17 16:00 97.7 110 18 125/78 97 Room Air 97.7 07/22/17 16:00 16 07/22/17 12:00 98.4 100 22 117/80 96 Room Air 98.4 07/22/17 12:00 16 Intake and Output 07/22/17 07/23/17 19:00 07:00 Intake Total 1410 ml 720 ml Output Total 550 ml 1055 ml Balance 860 ml -335 ml Intake Oral 480 ml 720 ml IV Total 930 ml Output Urine Total 400 ml 1025 ml Stool Total 30 ml Drainage Total 150 ml Laboratory Tests Test 07/23/17 05:20 White Blood Count 14.9 K/UL (4.8-10.8) H Red Blood Count 3.28 M/UL (4.70-6.10) L Hemoglobin 10.0 G/DL (14.2-18.0) L Hematocrit 29.9 % (42.0-52.0) L Mean Corpuscular Volume 91 FL (80-99) Mean Corpuscular Hemoglobin 30.6 PG (27.0-31.0) Mean Corpuscular Hemoglobin Concent 33.5 G/DL (32.0-36.0) Red Cell Distribution Width 12.5 % (11.6-14.8) Platelet Count 452 K/UL (150-450) H Mean Platelet Volume 4.4 FL (6.5-10.1) L Neutrophils (%) (Auto) % (45.0-75.0) Lymphocytes (%) (Auto) % (20.0-45.0) Monocytes (%) (Auto) % (1.0-10.0) Eosinophils (%) (Auto) % (0.0-3.0) Basophils (%) (Auto) % (0.0-2.0) Differential Total Cells Counted 100 Neutrophils % (Manual) 87 % (45-75) H Lymphocytes % (Manual) 7 % (20-45) L Monocytes % (Manual) 6 % (1-10) Eosinophils % (Manual) 0 % (0-3) Basophils % (Manual) 0 % (0-2) Band Neutrophils 0 % (0-8) Platelet Estimate Adequate Platelet Morphology Normal Anisocytosis 1+ Sodium Level 137 MMOL/L (136-145) Potassium Level 4.9 MMOL/L (3.5-5.1) Chloride Level 98 MMOL/L (98-107) Carbon Dioxide Level 35 MMOL/L (21-32) H Anion Gap 4 mmol/L (5-15) L Blood Urea Nitrogen 2 mg/dL (7-18) L Creatinine 0.7 MG/DL (0.55-1.30) Estimat Glomerular Filtration Rate > 60 mL/min (>60) Glucose Level 78 MG/DL (74-106) Calcium Level 8.0 MG/DL (8.5-10.1) L Phosphorus Level 3.7 MG/DL (2.5-4.9) Magnesium Level 1.5 MG/DL (1.8-2.4) L Total Bilirubin 0.4 MG/DL (0.2-1.0) Aspartate Amino Transf (AST/SGOT) 21 U/L (15-37) Alanine Aminotransferase (ALT/SGPT) 14 U/L (12-78) Alkaline Phosphatase 180 U/L (46-116) H Total Protein 5.7 G/DL (6.4-8.2) L Albumin 1.6 G/DL (3.4-5.0) L Globulin 4.1 g/dL Albumin/Globulin Ratio 0.4 (1.0-2.7) L Height (Feet): 5 Height (Inches): 9.00 Weight (Pounds): 130 General Appearance: WD/WN, no apparent distress, alert Cardiovascular: normal rate Respiratory/Chest: normal breath sounds, no respiratory distress Abdominal Exam: normal bowel sounds, non tender, soft, other - colostomy Extremities: normal range of motion, non-tender Samia Albarran N.Airam Jul 23, 2017 11:00
[2017-07-23] MEDS ORDERED: PCA Education Pamphlet MISC ONE (11:15)
--- NOTE | 2017-07-23 11:25 | 48 Hour Post Anesthesia Eval ---
Post Anesthesia Evaluation Procedure: Exploratory laparotomy,intraabdominal abscess drainage Date of Evaluation: Jul 22, 2017 Time of Evaluation: 11:23 Blood Pressure Systolic: 128 0: 75 Pulse Rate: 113 Respiratory Rate: 18 Temperature (Fahrenheit): 99.2 O2 Sat by Pulse Oximetry: 97 Airway: patent Nausea: No Vomiting: No Pain Intensity: 3 Hydration Status: adequate Cardiopulmonary Status: Stable Mental Status/LOC: patient returned to baseline Follow-up Care/Observations: 0 Post-Anesthesia Complications: 0 Follow-up care needed: N/A Sheldon Clark MD Jul 23, 2017 11:25
--- NOTE | 2017-07-23 12:06 | General Surgery Progress Note ---
General Surgery-Progress Note Subjective Procedure Performed exploratory laparotomy, abdominal washout, evacuation of abscess, drain placement and abdominal closure Additional Comments doing well. eating better. good bowel sounds. gas in ostomy bag. no n/v/f/ c. leukocytosis. Objective Last 24 Hour Vital Signs Date Time Temp Pulse Resp B/P (MAP) Pulse Ox O2 Delivery O2 Flow Rate FiO2 07/23/17 11:25 210.6 113 18 97 07/23/17 08:00 97.2 113 20 136/78 96 97.2 07/23/17 05:00 98.8 07/23/17 04:00 98.8 103 18 119/82 97 98.8 07/23/17 00:00 99.6 111 18 117/78 98 99.6 07/22/17 20:00 16 07/22/17 20:00 99.2 118 18 128/85 92 99.2 07/22/17 19:07 Room Air 21 07/22/17 19:07 97 Room Air 21 07/22/17 16:54 98.4 07/22/17 16:24 98.4 07/22/17 16:00 97.7 110 18 125/78 97 Room Air 97.7 07/22/17 16:00 16 I&O Intake and Output 07/22/17 07/23/17 19:00 07:00 Intake Total 1410 ml 720 ml Output Total 550 ml 1055 ml Balance 860 ml -335 ml Intake Oral 480 ml 720 ml IV Total 930 ml Output Urine Total 400 ml 1025 ml Stool Total 30 ml Drainage Total 150 ml Dressing: saturated Wound: other - midline wound saturated. Drains: reginaldo Cardiovascular: RSR Respiratory: clear Abdomen: soft, flat, non-tender, present bowel sounds Extremities: no tenderness, no cyanosis Laboratory Tests Test 07/23/17 05:20 White Blood Count 14.9 K/UL (4.8-10.8) H Red Blood Count 3.28 M/UL (4.70-6.10) L Hemoglobin 10.0 G/DL (14.2-18.0) L Hematocrit 29.9 % (42.0-52.0) L Mean Corpuscular Volume 91 FL (80-99) Mean Corpuscular Hemoglobin 30.6 PG (27.0-31.0) Mean Corpuscular Hemoglobin Concent 33.5 G/DL (32.0-36.0) Red Cell Distribution Width 12.5 % (11.6-14.8) Platelet Count 452 K/UL (150-450) H Mean Platelet Volume 4.4 FL (6.5-10.1) L Neutrophils (%) (Auto) % (45.0-75.0) Lymphocytes (%) (Auto) % (20.0-45.0) Monocytes (%) (Auto) % (1.0-10.0) Eosinophils (%) (Auto) % (0.0-3.0) Basophils (%) (Auto) % (0.0-2.0) Differential Total Cells Counted 100 Neutrophils % (Manual) 87 % (45-75) H Lymphocytes % (Manual) 7 % (20-45) L Monocytes % (Manual) 6 % (1-10) Eosinophils % (Manual) 0 % (0-3) Basophils % (Manual) 0 % (0-2) Band Neutrophils 0 % (0-8) Platelet Estimate Adequate Platelet Morphology Normal Anisocytosis 1+ Sodium Level 137 MMOL/L (136-145) Potassium Level 4.9 MMOL/L (3.5-5.1) Chloride Level 98 MMOL/L (98-107) Carbon Dioxide Level 35 MMOL/L (21-32) H Anion Gap 4 mmol/L (5-15) L Blood Urea Nitrogen 2 mg/dL (7-18) L Creatinine 0.7 MG/DL (0.55-1.30) Estimat Glomerular Filtration Rate > 60 mL/min (>60) Glucose Level 78 MG/DL (74-106) Calcium Level 8.0 MG/DL (8.5-10.1) L Phosphorus Level 3.7 MG/DL (2.5-4.9) Magnesium Level 1.5 MG/DL (1.8-2.4) L Total Bilirubin 0.4 MG/DL (0.2-1.0) Aspartate Amino Transf (AST/SGOT) 21 U/L (15-37) Alanine Aminotransferase (ALT/SGPT) 14 U/L (12-78) Alkaline Phosphatase 180 U/L (46-116) H Total Protein 5.7 G/DL (6.4-8.2) L Albumin 1.6 G/DL (3.4-5.0) L Globulin 4.1 g/dL Albumin/Globulin Ratio 0.4 (1.0-2.7) L Assessment Post-op Diagnosis abdominal dehiscence, intraabdominal abscess Plan Problems: (1) Perforated abdominal viscus Assessment & Plan: perforated abdominal viscus as noted on CT. exam with peritonitis generalized but with focus in LLQ. history of psych illness but currently AAOx4 and cooperative with exam. poor historian. possible drug seeking behavior. s/p Ex lap with abdominal washout, left colectomy and creation of transverse colostomy. Noted to have larger perforation in sigmoid likely stercoarl given operative findings. large left perisplenic abscess evacuated. drains placed. post operatively improved but after a few days noted to have purulent drainage out of left upper quadrant drain. CT demonstrated reaccumulation of large complex abscess despite extensive washout on initial operation. IR drain placed and pus evacuated but could not resolve complex collection. micro with multiorganism. midline wound dehiscence. decision made for re-exploration with washout, drains, and midline closure. s/p re-exploration with washout, drains, and midline closure on 07/20. large complex abscess noted, evacuated, washout, drains placed. midline fascia closed. doing well. recovering. improved pain control with TOUR DIRECTOR. afebrile, HD stable, labs reviewed. leukocytosis midline wound reapproximated yesterday but dressings saturated today. reapproximation steri-strips removed. wound irrigated, and packing and dressings reapplied. 3 drains. one in pelvis with serous output. one in superficial left upper quadrant with serosang output. one in deep left upper quadrante with thick serosang output (hopefully not reaccumulation of abscess forming and may be surgicell/flowseal that is being liquified and removed) -full liquids -pt/ot, ambulate and oob -TOUR DIRECTOR for pain control -cont IV Abx. appreciate ID input. -midline wound packing and dressings TID -drain care and management. Gilberto Michelle Jul 23, 2017 12:06
--- NOTE | 2017-07-23 13:00 | Progress Note ---
DATE: 07/23/2017 SUBJECTIVE: The patient continues to be disorganized, though was now calmer, less agitated, more cooperative, still forgetful. Compliant with medication. MENTAL STATUS EXAMINATION: The patient is alert and oriented times place. Mood is neutral. Affect is constricted. Congruent with mood. Thought process is concrete. Thought content, no suicidal or homicidal ideations. ASSESSMENT: Schizophrenia. PLAN: 1. The patient will be continued on current medication. 2. Provide the patient with supportive therapy and reality orientation. Idalia Montanez M.D. DR: BRAYDEN JOB#: [id number] CC:
[2017-07-23] MEDS ORDERED: DiphenhydrAMINE 50mg/ml Inj IVP PRN (13:30)
[2017-07-23] MEDS ORDERED: Naloxone 0.4mg/ml Inj IVP PRN (13:30)
[2017-07-23] MEDS ORDERED: Rate Change PCA 1 Each MISC PRN (13:30)
[2017-07-23] MEDS: PCA Morphine 1mg/ml 30 ML IV PRN ×2 (14:11→22:22)
--- NOTE | 2017-07-23 15:49 | Nephrology Progress Note ---
Assessment/Plan Problem List: (1) ARF (acute renal failure) (2) UTI (urinary tract infection) (3) Psychiatric disorder (4) Acute abdomen Assessment Status: WBCs wnl had multi abdominal drains acute renal failure- extended left colectomy due to perf transverse colostomy creation Plan Plan: per charles, 07/20/17 Mag and K supplement as needed DC horan DC IV PT advance diet Post op ( OP 07/08/17) Horan- 2D echo normal Ej Fx Albumin bollous monitor renal parameters K and Phos and Mag supplement as needed Subjective ROS Limited/Unobtainable: No Constitutional: Reports: malaise Objective Objective Last 24 Hour Vital Signs Date Time Temp Pulse Resp B/P (MAP) Pulse Ox O2 Delivery O2 Flow Rate FiO2 07/23/17 15:00 20 07/23/17 14:30 20 07/23/17 14:15 20 07/23/17 12:00 97.0 99 20 97 97.0 07/23/17 11:25 210.6 113 18 97 07/23/17 08:00 97.2 113 20 136/78 96 97.2 07/23/17 05:00 98.8 07/23/17 04:00 98.8 103 18 119/82 97 98.8 07/23/17 00:00 99.6 111 18 117/78 98 99.6 07/22/17 20:00 16 07/22/17 20:00 99.2 118 18 128/85 92 99.2 07/22/17 19:07 Room Air 21 07/22/17 19:07 97 Room Air 21 07/22/17 16:54 98.4 07/22/17 16:24 98.4 07/22/17 16:00 97.7 110 18 125/78 97 Room Air 97.7 07/22/17 16:00 16 Intake and Output 07/22/17 07/23/17 19:00 07:00 Intake Total 1410 ml 720 ml Output Total 550 ml 1055 ml Balance 860 ml -335 ml Intake Oral 480 ml 720 ml IV Total 930 ml Output Urine Total 400 ml 1025 ml Stool Total 30 ml Drainage Total 150 ml Laboratory Tests 07/23/17 05:20: White Blood Count 14.9H, Red Blood Count 3.28L, Hemoglobin 10.0L, Hematocrit 29.9L, Mean Corpuscular Volume 91, Mean Corpuscular Hemoglobin 30.6, Mean Corpuscular Hemoglobin Concent 33.5, Red Cell Distribution Width 12.5, Platelet Count 452H, Mean Platelet Volume 4.4L, Neutrophils (%) (Auto) , Lymphocytes (%) (Auto) , Monocytes (%) (Auto) , Eosinophils (%) (Auto) , Basophils (%) (Auto) , Differential Total Cells Counted 100, Neutrophils % (Manual) 87H, Lymphocytes % (Manual) 7L, Monocytes % (Manual) 6, Eosinophils % (Manual) 0, Basophils % ( Manual) 0, Band Neutrophils 0, Platelet Estimate Adequate, Platelet Morphology Normal, Anisocytosis 1+, Sodium Level 137, Potassium Level 4.9, Chloride Level 98, Carbon Dioxide Level 35H, Anion Gap 4L, Blood Urea Nitrogen 2L, Creatinine 0.7, Estimat Glomerular Filtration Rate > 60, Glucose Level 78, Calcium Level 8.0L, Phosphorus Level 3.7, Magnesium Level 1.5L, Total Bilirubin 0.4, Aspartate Amino Transf (AST/SGOT) 21, Alanine Aminotransferase (ALT/SGPT) 14, Alkaline Phosphatase 180H, Total Protein 5.7L, Albumin 1.6L, Globulin 4.1, Albumin/Globulin Ratio 0.4L Height (Feet): 5 Height (Inches): 9.00 Weight (Pounds): 130 General Appearance: no apparent distress Respiratory/Chest: decreased breath sounds Abdomen: distended Objective no other change NOEMY MARK Jul 23, 2017 15:49
[2017-07-23 16:00] VITALS: BP 129/76
--- NOTE | 2017-07-23 19:22 | Infectious Diseases Prog Note ---
Assessment/Plan Assessment/Plan ASSESSMENT: The patient is a 46-year-old male with; Bowel perf w/ development of 2 Abscess (subphrenic and pelvic) Cx: E coli( ESBL) and ENTEROCOCCUS AVIUM (turcios S) and Bact Fragilis - Repeat CT with persistent LUQ fluid collection and 2 other fluid collections; former suspect still residual abscess; latter 2 possible sterile vs infected s/p second exp lap and abscess draiange -s/p exploratory laparotomy, abdominal washout, evacuation of abscess, drain placement and abdominal closure 07/20; cx p -s/p CT guided drainage APOLLO fluid collection 07/19: Aspiration and drainage of left upper quadrant collection, yielding 150 mL of carin pus. Note that the collection could only be partially evacuated, however, despite confirmation of apparent adequate position of the drain.This may indicate high viscosity of the contents; cx E. fecalis (turcios S), PREVOTELLA LOESCHEII (Aumgentin, Clinda R; Metronidazole S) s/p ex lap with left colectomy and transverse colostomy for perforated left colon, evacuation of intrabd abscess, abd washout w/ drain placement 07/09 -CT abd/p w/ 07/18: Postsurgical changes, as described, status post transverse colectomy, Jazz procedure, and placement of multiple surgical drains. Left upper quadrant intraperitoneal fluid collection, despite the presence of a surgical drain in the center of the collection. The presence of gas bubbles within rather than floating nondependently in the collection indicate that this fluid may be viscous. 2 other significant intraperitoneal collections,which do not appear to communicate, possibly loculated. Given presence of somewhat thick enhancing rim surrounding all of these, infected collections are certainly possible ( left paracolic gutter 5.8 cmx 4.3 cm x 8.3cm and R paracolic gutter, medial and inferior to tip R hepatic lobe 8cm x 6.4cm x8cm). Other than the gas within the left upper quadrant collection, previously demonstrated pneumoperitoneum has largely resolved. Left upper quadrant thick walled small bowel loops. Possibly reactive due to adjacent inflammation, enteritis is also possible. No evidence of bowel obstruction. Gallbladder wall edema versus pericholecystic fluid. -OR findings: The omentum was significantly thickened and adhesed to the small bowel and into the left lower quadrant. There was significant inflammatory process throughout the abdomen including a thickening of almost the entire peritoneal lining. The proximal portion of the jejunum was significantly thickened and had a rind of inflammatory infectious tissue on it. left transverse and descending colon, there was significant amount of thickening and significant disease process with some areas of mild ischemia noted and in the descending colon around the descending and sigmoid junction, there was a gross perforation with grossspillage of bowel contents noted in the area. there was a fluid collection/pelvic abscess, which was evacuated. There was a fluid collection in the right upper quadrant around the liver, which was evacuated and a large left upper quadrant subphrenic abscess with significant tissue rind and thickening around the stomach, spleen, peritoneum, and diaphragm in that location. CT : Evidence of perforation of hollow viscus with extensive amount of free air in the upper abdomen and some free fluid is well. Fever/Leukocytosis, recurrent- improving- 2ry to above -leukocytosis resolved -Bcx NTD Elevated ALP -Abd US: Negative for gallstones. There is borderline gallbladder wall thickening, however. Most likely, this is reactive secondary to surrounding inflammation related to recent bowel perforation and surgery for such. However, the possibility of acalculous acute cholecystitis should be considered, and consideration for nuclear medicine hepatobiliary scanning if there is high clinical suspicion history of diarrhea, SP RAMSEY: Improved HTN COPD/asthma. Smoker. History of chronic constipation. Osteoarthritis. ? CAD/TN, hx PLAN: -Continue IV Meropenem abx d#12 and IV Ampicillin(abx d#7 for enterococcal coverage) for intraabdominal abscess -Continue Fluconazole #3 -Will add PO linezolid given recurrent of murky fluid for MRSA and nocardia coverage empirically -plan to treat for 2-4 weeks from 07/20 --07/21 Zosyn #4 --3/14 SP Ertapenem, PO Amoxicillin #3 --3 SP Cefepime #2 --3/8 SP Zosyn d# 6 --SP Rocephin d# 5 -Requested micro lab to add fungal, nocardia and AFB cx to latest cultures -f/u CT guided drainage and OR cx -surgery following -wound care monitor chest x-ray. Nephrology, following Monitor ( Blood ) Cx Discussed with Pardeep. Subjective Allergies: Coded Allergies: No Known Allergies (Unverified , 01/20/17) Subjective afebrile leukocytosis 14.8 murky drainge from LUQ drain Objective Vital Signs Last 24 Hour Vital Signs Date Time Temp Pulse Resp B/P (MAP) Pulse Ox O2 Delivery O2 Flow Rate FiO2 07/23/17 16:00 98.2 100 20 129/76 98 98.2 07/23/17 15:00 20 07/23/17 14:30 20 07/23/17 14:15 20 07/23/17 12:00 97.0 99 20 97 97.0 07/23/17 11:25 210.6 113 18 97 07/23/17 08:00 97.2 113 20 136/78 96 97.2 07/23/17 05:00 98.8 07/23/17 04:00 98.8 103 18 119/82 97 98.8 07/23/17 00:00 99.6 111 18 117/78 98 99.6 07/22/17 20:00 16 07/22/17 20:00 99.2 118 18 128/85 92 99.2 Height (Feet): 5 Height (Inches): 9.00 Weight (Pounds): 130 Objective General Appearance: WD/WN, no apparent distress, alert, thin Cardiovascular: normal rate Respiratory/Chest: normal breath sounds, no respiratory distress Abdominal Exam: normal bowel sounds, non tender, soft, other - colostomy Extremities: non-tender Laboratory Tests Test 07/23/17 05:20 White Blood Count 14.9 K/UL (4.8-10.8) H Red Blood Count 3.28 M/UL (4.70-6.10) L Hemoglobin 10.0 G/DL (14.2-18.0) L Hematocrit 29.9 % (42.0-52.0) L Mean Corpuscular Volume 91 FL (80-99) Mean Corpuscular Hemoglobin 30.6 PG (27.0-31.0) Mean Corpuscular Hemoglobin Concent 33.5 G/DL (32.0-36.0) Red Cell Distribution Width 12.5 % (11.6-14.8) Platelet Count 452 K/UL (150-450) H Mean Platelet Volume 4.4 FL (6.5-10.1) L Neutrophils (%) (Auto) % (45.0-75.0) Lymphocytes (%) (Auto) % (20.0-45.0) Monocytes (%) (Auto) % (1.0-10.0) Eosinophils (%) (Auto) % (0.0-3.0) Basophils (%) (Auto) % (0.0-2.0) Differential Total Cells Counted 100 Neutrophils % (Manual) 87 % (45-75) H Lymphocytes % (Manual) 7 % (20-45) L Monocytes % (Manual) 6 % (1-10) Eosinophils % (Manual) 0 % (0-3) Basophils % (Manual) 0 % (0-2) Band Neutrophils 0 % (0-8) Platelet Estimate Adequate Platelet Morphology Normal Anisocytosis 1+ Sodium Level 137 MMOL/L (136-145) Potassium Level 4.9 MMOL/L (3.5-5.1) Chloride Level 98 MMOL/L (98-107) Carbon Dioxide Level 35 MMOL/L (21-32) H Anion Gap 4 mmol/L (5-15) L Blood Urea Nitrogen 2 mg/dL (7-18) L Creatinine 0.7 MG/DL (0.55-1.30) Estimat Glomerular Filtration Rate > 60 mL/min (>60) Glucose Level 78 MG/DL (74-106) Calcium Level 8.0 MG/DL (8.5-10.1) L Phosphorus Level 3.7 MG/DL (2.5-4.9) Magnesium Level 1.5 MG/DL (1.8-2.4) L Total Bilirubin 0.4 MG/DL (0.2-1.0) Aspartate Amino Transf (AST/SGOT) 21 U/L (15-37) Alanine Aminotransferase (ALT/SGPT) 14 U/L (12-78) Alkaline Phosphatase 180 U/L (46-116) H Total Protein 5.7 G/DL (6.4-8.2) L Albumin 1.6 G/DL (3.4-5.0) L Globulin 4.1 g/dL Albumin/Globulin Ratio 0.4 (1.0-2.7) L Current Medications Medications (Trade) Dose Ordered Sig/Kayy Route PRN Reason Start Time Stop Time Status Last Admin Dose Admin Acetaminophen (Tylenol) 650 mg Q6H PRN ORAL Mild Pain/Temp > 100.5 07/14/17 19:00 08/13/17 18:59 07/21/17 12:18 Ampicillin 2 gm/ Sodium Chloride 110 ml @ 220 mls/hr EVERY 6 HOURS IVPB 07/21/17 18:30 07/28/17 18:29 07/23/17 18:13 Calcium Carbonate (Tums) 1,000 mg Q4H PRN ORAL HEARTBURN/INDIGESTION 07/20/17 18:00 08/19/17 17:59 07/22/17 16:26 Dextrose (Dextrose 50%) STAT PRN IV Hypoglycemia 07/11/17 20:30 08/10/17 20:29 Diphenhydramine HCl (Benadryl) 25 mg Q6H PRN IVP Itching/Pruritis 07/23/17 13:30 07/25/17 13:29 Finasteride (Proscar) 5 mg DAILY ORAL 07/13/17 09:00 08/12/17 08:59 07/23/17 09:14 Fluconazole/ Sodium Chloride 100 ml @ 100 mls/hr Q24H IV 07/20/17 14:00 07/27/17 13:59 07/23/17 15:00 Heparin Sodium (Porcine) (Heparin 5000 units/ml) 5,000 units EVERY 12 HOURS SUBQ 07/11/17 21:00 08/02/17 08:59 07/23/17 09:26 Lansoprazole (Prevacid) 30 mg DAILY ORAL 07/12/17 09:00 08/11/17 08:59 07/23/17 09:14 Meropenem 1 gm/ Sodium Chloride 55 ml @ 110 mls/hr Q8H IVPB 07/21/17 19:00 07/26/17 18:59 07/23/17 11:06 Miscellaneous Medication (NEW CAR MAKE READY MECHANIC Rate Change) 1 ea DAILY PRN MISC rate change 07/23/17 13:30 07/25/17 13:29 Miscellaneous Medication (NEW CAR MAKE READY MECHANIC shift volume) 1 ea Q12HR@0700,1900 MISC 07/23/17 19:00 07/25/17 18:59 Morphine Sulfate 30 ml @ 0 mls/hr Q24H PRN IV For Pain 07/23/17 13:30 07/25/17 13:29 07/23/17 14:11 Morphine Sulfate (Morphine Sulfate) 2 mg Q2H PRN IV Moderate Breakthru Pain (5-7) 07/20/17 19:45 07/27/17 19:44 Morphine Sulfate (Morphine Sulfate) 4 mg Q3H PRN SUBQ Severe Breakthru Pain (>7) 07/20/17 19:44 07/27/17 19:43 07/23/17 09:16 Naloxone HCl (Narcan) 0.1 mg Q1M PRN IVP RR<10/min OR SBP<90 mmHg 07/23/17 13:30 07/25/17 13:29 Nitroglycerin (Ntg) 0.4 mg Q5MIN X 3 DOSES PRN SL Prn Chest Pain 07/11/17 20:32 08/09/17 20:31 Ondansetron HCl (Zofran) 4 mg Q6H PRN IVP Nausea & Vomiting 07/11/17 20:32 08/10/17 20:31 07/22/17 22:38 Potassium Chloride (K-Dur) 40 meq DAILY ORAL 07/20/17 09:00 08/19/17 08:59 07/23/17 09:15 Risperidone (RisperDAL) 4 mg BEDTIME ORAL 07/23/17 21:00 08/22/17 20:59 Sodium Chloride 1,000 ml @ 50 mls/hr Q20H IV 07/20/17 12:54 08/19/17 12:53 07/23/17 01:14 Chhaya Menendez M.D. Jul 23, 2017 19:22
[2017-07-23] MEDS: PCA shift volume MISC SCH (19:28)
[2017-07-23 20:00] VITALS: BP 122/85
--- NOTE | 2017-07-23 20:31 | Pulmonology Progress Note ---
Assessment/Plan Problems: (1) Perforated abdominal viscus (2) ARF (acute renal failure) (3) Psychosis (4) Acute constipation (5) Amphetamine abuse Assessment/Plan tolerated surgery very well. s/p abscess removal iv fluids continue anbx f/u clinically pain management med/surg check electrolytes Subjective Constitutional: Reports: no symptoms HEENT: Repors: no symptoms Respiratory: Reports: no symptoms Allergies: Coded Allergies: No Known Allergies (Unverified , 01/20/17) Objective Last 24 Hour Vital Signs Date Time Temp Pulse Resp B/P (MAP) Pulse Ox O2 Delivery O2 Flow Rate FiO2 07/23/17 16:00 98.2 100 20 129/76 98 98.2 07/23/17 15:00 20 07/23/17 14:30 20 07/23/17 14:15 20 07/23/17 12:00 97.0 99 20 97 97.0 07/23/17 11:25 210.6 113 18 97 07/23/17 08:00 97.2 113 20 136/78 96 97.2 07/23/17 05:00 98.8 07/23/17 04:00 98.8 103 18 119/82 97 98.8 07/23/17 00:00 99.6 111 18 117/78 98 99.6 Intake and Output 07/22/17 07/23/17 19:00 07:00 Intake Total 1410 ml 720 ml Output Total 550 ml 1055 ml Balance 860 ml -335 ml Intake Oral 480 ml 720 ml IV Total 930 ml Output Urine Total 400 ml 1025 ml Stool Total 30 ml Drainage Total 150 ml Objective General Appearance: WD/WN Lines, tubes and drains: peripheral HEENT: normocephalic, atraumatic Neck: non-tender, normal alignment Respiratory/Chest: chest wall non-tender, lungs clear Breasts: no masses Cardiovascular/Chest: normal peripheral pulses, normal rate Abdomen: normal bowel sounds, clean dressing Genitourinary/Rectal: normal genital exam, heme negative stool Extremities: normal range of motion, non-tender Skin Exam: normal pigmentation Laboratory Tests 07/23/17 05:20: White Blood Count 14.9H, Red Blood Count 3.28L, Hemoglobin 10.0L, Hematocrit 29.9L, Mean Corpuscular Volume 91, Mean Corpuscular Hemoglobin 30.6, Mean Corpuscular Hemoglobin Concent 33.5, Red Cell Distribution Width 12.5, Platelet Count 452H, Mean Platelet Volume 4.4L, Neutrophils (%) (Auto) , Lymphocytes (%) (Auto) , Monocytes (%) (Auto) , Eosinophils (%) (Auto) , Basophils (%) (Auto) , Differential Total Cells Counted 100, Neutrophils % (Manual) 87H, Lymphocytes % (Manual) 7L, Monocytes % (Manual) 6, Eosinophils % (Manual) 0, Basophils % ( Manual) 0, Band Neutrophils 0, Platelet Estimate Adequate, Platelet Morphology Normal, Anisocytosis 1+, Sodium Level 137, Potassium Level 4.9, Chloride Level 98, Carbon Dioxide Level 35H, Anion Gap 4L, Blood Urea Nitrogen 2L, Creatinine 0.7, Estimat Glomerular Filtration Rate > 60, Glucose Level 78, Calcium Level 8.0L, Phosphorus Level 3.7, Magnesium Level 1.5L, Total Bilirubin 0.4, Aspartate Amino Transf (AST/SGOT) 21, Alanine Aminotransferase (ALT/SGPT) 14, Alkaline Phosphatase 180H, Total Protein 5.7L, Albumin 1.6L, Globulin 4.1, Albumin/Globulin Ratio 0.4L Current Medications Medications (Trade) Dose Ordered Sig/Kayy Route PRN Reason Start Time Stop Time Status Last Admin Dose Admin Acetaminophen (Tylenol) 650 mg Q6H PRN ORAL Mild Pain/Temp > 100.5 07/14/17 19:00 08/13/17 18:59 07/21/17 12:18 Ampicillin 2 gm/ Sodium Chloride 110 ml @ 220 mls/hr EVERY 6 HOURS IVPB 07/21/17 18:30 07/28/17 18:29 07/23/17 18:13 Calcium Carbonate (Tums) 1,000 mg Q4H PRN ORAL HEARTBURN/INDIGESTION 07/20/17 18:00 08/19/17 17:59 07/22/17 16:26 Dextrose (Dextrose 50%) STAT PRN IV Hypoglycemia 07/11/17 20:30 08/10/17 20:29 Diphenhydramine HCl (Benadryl) 25 mg Q6H PRN IVP Itching/Pruritis 07/23/17 13:30 07/25/17 13:29 Finasteride (Proscar) 5 mg DAILY ORAL 07/13/17 09:00 4/8/18 08:59 07/23/17 09:14 Fluconazole/ Sodium Chloride 100 ml @ 100 mls/hr Q24H IV 07/20/17 14:00 07/27/17 13:59 07/23/17 15:00 Heparin Sodium (Porcine) (Heparin 5000 units/ml) 5,000 units EVERY 12 HOURS SUBQ 07/11/17 21:00 08/02/17 08:59 07/23/17 09:26 Lansoprazole (Prevacid) 30 mg DAILY ORAL 07/12/17 09:00 08/11/17 08:59 07/23/17 09:14 Linezolid (Zyvox) 600 mg EVERY 12 HOURS ORAL 07/23/17 21:00 07/28/17 20:59 Meropenem 1 gm/ Sodium Chloride 55 ml @ 110 mls/hr Q8H IVPB 07/21/17 19:00 07/26/17 18:59 07/23/17 20:29 Miscellaneous Medication (ASSET PROTECTION AGENT Rate Change) 1 ea DAILY PRN MISC rate change 07/23/17 13:30 07/25/17 13:29 Miscellaneous Medication (ASSET PROTECTION AGENT shift volume) 1 ea Q12HR@0700,1900 MISC 07/23/17 19:00 07/25/17 18:59 07/23/17 19:28 Morphine Sulfate 30 ml @ 0 mls/hr Q24H PRN IV For Pain 07/23/17 13:30 07/25/17 13:29 07/23/17 14:11 Morphine Sulfate (Morphine Sulfate) 2 mg Q2H PRN IV Moderate Breakthru Pain (5-7) 07/20/17 19:45 07/27/17 19:44 Morphine Sulfate (Morphine Sulfate) 4 mg Q3H PRN SUBQ Severe Breakthru Pain (>7) 07/20/17 19:44 07/27/17 19:43 07/23/17 09:16 Naloxone HCl (Narcan) 0.1 mg Q1M PRN IVP RR<10/min OR SBP<90 mmHg 07/23/17 13:30 07/25/17 13:29 Nitroglycerin (Ntg) 0.4 mg Q5MIN X 3 DOSES PRN SL Prn Chest Pain 07/11/17 20:32 08/09/17 20:31 Ondansetron HCl (Zofran) 4 mg Q6H PRN IVP Nausea & Vomiting 07/11/17 20:32 08/10/17 20:31 07/22/17 22:38 Potassium Chloride (K-Dur) 40 meq DAILY ORAL 07/20/17 09:00 08/19/17 08:59 07/23/17 09:15 Risperidone (RisperDAL) 4 mg BEDTIME ORAL 07/23/17 21:00 08/22/17 20:59 Sodium Chloride 1,000 ml @ 50 mls/hr Q20H IV 07/20/17 12:54 08/19/17 12:53 07/23/17 01:14 Brenda Martel MD Jul 23, 2017 20:31
[2017-07-24] VITALS: BP 119/74
[2017-07-24] MEDS: Ampicillin 2 GM in NS 110 ML IVPB SCH ×4 (00:47→17:24)
[2017-07-24] MEDS: Meropenem 1 GM in NS 55 ML IVPB SCH ×3 (02:53→18:49)
[2017-07-24 04:00] VITALS: BP 122/74
[2017-07-24] MEDS: PCA shift volume MISC SCH ×2 (07:20→19:06)
[2017-07-24 08:00] VITALS: BP 115/74
[2017-07-24 08:28] LABS: BASOPHILS % (AUTO) 0.8 % (0.0-2.0); EOSINOPHILS % (AUTO) 0.8 % (0.0-3.0); HEMATOCRIT 30.5 % (42.0-52.0); HEMOGLOBIN 10.3 G/DL (14.2-18.0); LYMPHOCYTES % (AUTO) 8.2 % (20.0-45.0); MEAN CORPUSCULAR VOLUME 90 FL (80-99); MONOCYTES % (AUTO) 6.4 % (1.0-10.0); NEUTROPHILS % (AUTO) 83.9 % (45.0-75.0); PLATELET COUNT 427 K/UL (150-450); RED BLOOD COUNT 3.39 M/UL (4.70-6.10); RED CELL DISTRIBUTION WIDTH 12.4 % (11.6-14.8); WHITE BLOOD COUNT 12.6 K/UL (4.8-10.8)
[2017-07-24] MEDS: Heparin 5000 units/ml inj SUBQ SCH ×2 (08:38→20:43)
[2017-07-24] MEDS: PCA Morphine 1mg/ml 30 ML IV PRN ×2 (08:40→16:37)
[2017-07-24 09:02] LABS: ANION GAP 6 mmol/L (5-15); BLOOD UREA NITROGEN 1 mg/dL (7-18); CALCIUM 7.9 MG/DL (8.5-10.1); CARBON DIOXIDE 34 MMOL/L (21-32); CHLORIDE 99 MMOL/L (98-107); CREATININE 0.5 MG/DL (0.55-1.30); POTASSIUM 3.6 MMOL/L (3.5-5.1); SODIUM 138 MMOL/L (136-145)
--- NOTE | 2017-07-24 11:06 | GI Progress Note ---
Assessment/Plan Problems: (1) Psychiatric disorder ICD Codes: F99 - Mental disorder, not otherwise specified SNOMED: 14486442, 955366319 (2) Amphetamine abuse ICD Codes: F15.10 - Other stimulant abuse, uncomplicated SNOMED: 07857464 (3) Opiate dependence ICD Codes: F11.20 - Opioid dependence, uncomplicated SNOMED: 92842274 Qualifiers: Qualified Codes: F11.20 - Opioid dependence, uncomplicated (4) Perforated abdominal viscus SNOMED: 010749954 Status: progressing Status Narrative Discussed with Dr. Castro. Assessment/Plan s/p Exploratory laparotomy, partial bowel resection fu surgical recs IVFs diet adv per surgery colostomy care prn transfusions serial imaging prn pain mgmt fu labs Subjective Subjective doing well pain Objective Last 24 Hour Vital Signs Date Time Temp Pulse Resp B/P (MAP) Pulse Ox O2 Delivery O2 Flow Rate FiO2 07/24/17 08:19 20 07/24/17 08:00 97.7 97 20 115/74 100 97.7 07/24/17 04:00 98.8 100 18 122/74 98 Nasal Cannula 2.0 98.8 07/24/17 04:00 20 07/24/17 00:00 98.2 110 18 119/74 95 Nasal Cannula 2.0 98.2 07/24/17 00:00 20 07/23/17 22:52 97.3 07/23/17 22:22 97.3 07/23/17 22:20 20 07/23/17 20:00 97.3 111 19 122/85 96 Nasal Cannula 2.0 97.3 07/23/17 20:00 20 07/23/17 16:00 20 07/23/17 16:00 98.2 100 20 129/76 98 98.2 07/23/17 15:30 20 07/23/17 15:00 20 07/23/17 14:45 20 07/23/17 14:30 20 07/23/17 14:15 20 07/23/17 12:00 97.0 99 20 97 97.0 07/23/17 11:25 210.6 113 18 97 Intake and Output 07/23/17 07/24/17 19:00 07:00 Intake Total 1285 ml 985 ml Output Total 900 ml 988 ml Balance 385 ml -3 ml Intake Oral 420 ml 250 ml IV Total 865 ml 735 ml Output Urine Total 900 ml 925 ml Drainage Total 63 ml # Voids 4 2 Laboratory Tests Test 07/24/17 07:50 White Blood Count 12.6 K/UL (4.8-10.8) H Red Blood Count 3.39 M/UL (4.70-6.10) L Hemoglobin 10.3 G/DL (14.2-18.0) L Hematocrit 30.5 % (42.0-52.0) L Mean Corpuscular Volume 90 FL (80-99) Mean Corpuscular Hemoglobin 30.5 PG (27.0-31.0) Mean Corpuscular Hemoglobin Concent 33.8 G/DL (32.0-36.0) Red Cell Distribution Width 12.4 % (11.6-14.8) Platelet Count 427 K/UL (150-450) Mean Platelet Volume 5.0 FL (6.5-10.1) L Neutrophils (%) (Auto) 83.9 % (45.0-75.0) H Lymphocytes (%) (Auto) 8.2 % (20.0-45.0) L Monocytes (%) (Auto) 6.4 % (1.0-10.0) Eosinophils (%) (Auto) 0.8 % (0.0-3.0) Basophils (%) (Auto) 0.8 % (0.0-2.0) Sodium Level 138 MMOL/L (136-145) Potassium Level 3.6 MMOL/L (3.5-5.1) Chloride Level 99 MMOL/L (98-107) Carbon Dioxide Level 34 MMOL/L (21-32) H Anion Gap 6 mmol/L (5-15) Blood Urea Nitrogen 1 mg/dL (7-18) L Creatinine 0.5 MG/DL (0.55-1.30) L Estimat Glomerular Filtration Rate > 60 mL/min (>60) Glucose Level 140 MG/DL (74-106) H Calcium Level 7.9 MG/DL (8.5-10.1) L Height (Feet): 5 Height (Inches): 9.00 Weight (Pounds): 132 General Appearance: WD/WN, no apparent distress, alert Cardiovascular: normal rate Respiratory/Chest: normal breath sounds, no respiratory distress Abdominal Exam: normal bowel sounds, non tender, soft Extremities: normal range of motion, non-tender Samia Albarran N.P. Jul 24, 2017 11:06
[2017-07-24 11:57] VITALS: BP 112/68
--- NOTE | 2017-07-24 13:21 | General Surgery Progress Note ---
General Surgery-Progress Note Subjective Procedure Performed exploratory laparotomy, abdominal washout, evacuation of abscess, drain placement and abdominal closure Symptoms: improved Additional Comments doing better. hungry. wants more food. Objective Last 24 Hour Vital Signs Date Time Temp Pulse Resp B/P (MAP) Pulse Ox O2 Delivery O2 Flow Rate FiO2 07/24/17 12:00 20 07/24/17 11:57 97.5 101 18 112/68 92 Room Air 97.5 07/24/17 08:19 20 07/24/17 08:00 97.7 97 20 115/74 100 97.7 07/24/17 04:00 98.8 100 18 122/74 98 Nasal Cannula 2.0 98.8 07/24/17 04:00 20 07/24/17 00:00 98.2 110 18 119/74 95 Nasal Cannula 2.0 98.2 07/24/17 00:00 20 07/23/17 22:52 97.3 07/23/17 22:22 97.3 07/23/17 22:20 20 07/23/17 20:00 97.3 111 19 122/85 96 Nasal Cannula 2.0 97.3 07/23/17 20:00 20 07/23/17 16:00 20 07/23/17 16:00 98.2 100 20 129/76 98 98.2 07/23/17 15:30 20 07/23/17 15:00 20 07/23/17 14:45 20 07/23/17 14:30 20 07/23/17 14:15 20 I&O Intake and Output 07/23/17 07/24/17 19:00 07:00 Intake Total 1285 ml 985 ml Output Total 900 ml 988 ml Balance 385 ml -3 ml Intake Oral 420 ml 250 ml IV Total 865 ml 735 ml Output Urine Total 900 ml 925 ml Drainage Total 63 ml # Voids 4 2 Dressing: saturated Wound: clean Drains: reginaldo Cardiovascular: RSR Respiratory: clear Abdomen: soft, flat, non-tender, present bowel sounds, other - ostomy viable with stool output in bag Extremities: no tenderness, no cyanosis Laboratory Tests Test 07/24/17 07:50 White Blood Count 12.6 K/UL (4.8-10.8) H Red Blood Count 3.39 M/UL (4.70-6.10) L Hemoglobin 10.3 G/DL (14.2-18.0) L Hematocrit 30.5 % (42.0-52.0) L Mean Corpuscular Volume 90 FL (80-99) Mean Corpuscular Hemoglobin 30.5 PG (27.0-31.0) Mean Corpuscular Hemoglobin Concent 33.8 G/DL (32.0-36.0) Red Cell Distribution Width 12.4 % (11.6-14.8) Platelet Count 427 K/UL (150-450) Mean Platelet Volume 5.0 FL (6.5-10.1) L Neutrophils (%) (Auto) 83.9 % (45.0-75.0) H Lymphocytes (%) (Auto) 8.2 % (20.0-45.0) L Monocytes (%) (Auto) 6.4 % (1.0-10.0) Eosinophils (%) (Auto) 0.8 % (0.0-3.0) Basophils (%) (Auto) 0.8 % (0.0-2.0) Sodium Level 138 MMOL/L (136-145) Potassium Level 3.6 MMOL/L (3.5-5.1) Chloride Level 99 MMOL/L (98-107) Carbon Dioxide Level 34 MMOL/L (21-32) H Anion Gap 6 mmol/L (5-15) Blood Urea Nitrogen 1 mg/dL (7-18) L Creatinine 0.5 MG/DL (0.55-1.30) L Estimat Glomerular Filtration Rate > 60 mL/min (>60) Glucose Level 140 MG/DL (74-106) H Calcium Level 7.9 MG/DL (8.5-10.1) L Assessment Post-op Diagnosis abdominal dehiscence, intraabdominal abscess Plan Problems: (1) Perforated abdominal viscus Assessment & Plan: perforated abdominal viscus as noted on CT. exam with peritonitis generalized but with focus in LLQ. history of psych illness but currently AAOx4 and cooperative with exam. poor historian. possible drug seeking behavior. s/p Ex lap with abdominal washout, left colectomy and creation of transverse colostomy. Noted to have larger perforation in sigmoid likely stercoarl given operative findings. large left perisplenic abscess evacuated. drains placed. post operatively improved but after a few days noted to have purulent drainage out of left upper quadrant drain. CT demonstrated reaccumulation of large complex abscess despite extensive washout on initial operation. IR drain placed and pus evacuated but could not resolve complex collection. micro with multiorganism. midline wound dehiscence. decision made for re-exploration with washout, drains, and midline closure. s/p re-exploration with washout, drains, and midline closure on 07/20. large complex abscess noted, evacuated, washout, drains placed. midline fascia closed. doing well. recovering. improved pain control with TRAINING SPECIALIST. afebrile, HD stable, labs reviewed. leukocytosis midline wound reapproximated yesterday but dressings saturated today. reapproximation steri-strips removed. wound irrigated, and packing and dressings reapplied. 2 drains. Pelvic drain removed. one in superficial left upper quadrant with serosang output. one in deep left upper quadrante with thick serosang output ( hopefully not reaccumulation of abscess forming and may be surgicell/flowseal that is being liquified and removed) -full liquids -pt/ot, ambulate and oob -TRAINING SPECIALIST for pain control -cont IV Abx. appreciate ID input. -midline wound packing and dressings TID -drain care and management. Gilberto Michelle Jul 24, 2017 13:21
--- NOTE | 2017-07-24 15:21 | Nephrology Progress Note ---
Assessment/Plan Problem List: (1) ARF (acute renal failure) (2) UTI (urinary tract infection) (3) Psychiatric disorder (4) Acute abdomen Assessment Status: WBCs wnl had multi abdominal drains acute renal failure- extended left colectomy due to perf transverse colostomy creation Plan Plan: per charles, 07/20/17 Mag and K supplement as needed DC horan DC IV PT advance diet Post op ( OP 07/08/17) Horan- 2D echo normal Ej Fx Albumin bollous monitor renal parameters K and Phos and Mag supplement as needed Subjective ROS Limited/Unobtainable: No Objective Objective Last 24 Hour Vital Signs Date Time Temp Pulse Resp B/P (MAP) Pulse Ox O2 Delivery O2 Flow Rate FiO2 07/24/17 12:00 20 07/24/17 11:57 97.5 101 18 112/68 92 Room Air 97.5 07/24/17 08:19 20 07/24/17 08:00 97.7 97 20 115/74 100 97.7 07/24/17 04:00 98.8 100 18 122/74 98 Nasal Cannula 2.0 98.8 07/24/17 04:00 20 07/24/17 00:00 98.2 110 18 119/74 95 Nasal Cannula 2.0 98.2 07/24/17 00:00 20 07/23/17 22:52 97.3 07/23/17 22:22 97.3 07/23/17 22:20 20 07/23/17 20:00 97.3 111 19 122/85 96 Nasal Cannula 2.0 97.3 07/23/17 20:00 20 07/23/17 16:00 20 07/23/17 16:00 98.2 100 20 129/76 98 98.2 07/23/17 15:30 20 Intake and Output 07/23/17 07/24/17 19:00 07:00 Intake Total 1285 ml 1035 ml Output Total 900 ml 988 ml Balance 385 ml 47 ml Intake Oral 420 ml 250 ml IV Total 865 ml 785 ml Output Urine Total 900 ml 925 ml Drainage Total 63 ml # Voids 4 2 Laboratory Tests 07/24/17 07:50: White Blood Count 12.6H, Red Blood Count 3.39L, Hemoglobin 10.3L, Hematocrit 30.5L, Mean Corpuscular Volume 90, Mean Corpuscular Hemoglobin 30.5, Mean Corpuscular Hemoglobin Concent 33.8, Red Cell Distribution Width 12.4, Platelet Count 427, Mean Platelet Volume 5.0L, Neutrophils (%) (Auto) 83.9H, Lymphocytes (%) (Auto) 8.2L, Monocytes (%) (Auto) 6.4, Eosinophils (%) (Auto) 0.8, Basophils (%) (Auto) 0.8, Sodium Level 138, Potassium Level 3.6, Chloride Level 99, Carbon Dioxide Level 34H, Anion Gap 6, Blood Urea Nitrogen 1L, Creatinine 0.5L, Estimat Glomerular Filtration Rate > 60, Glucose Level 140H, Calcium Level 7.9L Height (Feet): 5 Height (Inches): 9.00 Weight (Pounds): 132 General Appearance: no apparent distress Objective no other change NOEMY MARK 20, 2018 15:21
[2017-07-24 16:00] VITALS: BP_SYST 122; BP_DIAS 73; BP_DIAS 79
--- NOTE | 2017-07-24 16:52 | Pulmonology Progress Note ---
Assessment/Plan Problems: (1) Perforated abdominal viscus (2) ARF (acute renal failure) (3) Psychosis (4) Acute constipation (5) Amphetamine abuse Assessment/Plan possibly more abscess are building up d/w surgeon iv fluids continue anbx f/u clinically pain management med/surg check electrolytes Subjective ROS Limited/Unobtainable: No Constitutional: Reports: no symptoms HEENT: Repors: no symptoms Allergies: Coded Allergies: No Known Allergies (Unverified , 01/20/17) Objective Last 24 Hour Vital Signs Date Time Temp Pulse Resp B/P (MAP) Pulse Ox O2 Delivery O2 Flow Rate FiO2 07/24/17 16:20 20 07/24/17 16:00 97.0 95 19 122/79 98 Room Air 97.0 07/24/17 12:00 20 07/24/17 11:57 97.5 101 18 112/68 92 Room Air 97.5 07/24/17 08:19 20 07/24/17 08:00 97.7 97 20 115/74 100 97.7 07/24/17 04:00 98.8 100 18 122/74 98 Nasal Cannula 2.0 98.8 07/24/17 04:00 20 07/24/17 00:00 98.2 110 18 119/74 95 Nasal Cannula 2.0 98.2 07/24/17 00:00 20 07/23/17 22:52 97.3 07/23/17 22:22 97.3 07/23/17 22:20 20 07/23/17 20:00 97.3 111 19 122/85 96 Nasal Cannula 2.0 97.3 07/23/17 20:00 20 Intake and Output 07/23/17 07/24/17 19:00 07:00 Intake Total 1285 ml 1035 ml Output Total 900 ml 988 ml Balance 385 ml 47 ml Intake Oral 420 ml 250 ml IV Total 865 ml 785 ml Output Urine Total 900 ml 925 ml Drainage Total 63 ml # Voids 4 2 Objective General Appearance: WD/WN Lines, tubes and drains: peripheral HEENT: normocephalic, atraumatic Neck: non-tender, normal alignment Respiratory/Chest: chest wall non-tender, lungs clear Breasts: no masses Cardiovascular/Chest: normal peripheral pulses, normal rate Abdomen: normal bowel sounds, clean dressing Genitourinary/Rectal: normal genital exam, heme negative stool Extremities: normal range of motion, non-tender Skin Exam: normal pigmentation Laboratory Tests 07/24/17 07:50: White Blood Count 12.6H, Red Blood Count 3.39L, Hemoglobin 10.3L, Hematocrit 30.5L, Mean Corpuscular Volume 90, Mean Corpuscular Hemoglobin 30.5, Mean Corpuscular Hemoglobin Concent 33.8, Red Cell Distribution Width 12.4, Platelet Count 427, Mean Platelet Volume 5.0L, Neutrophils (%) (Auto) 83.9H, Lymphocytes (%) (Auto) 8.2L, Monocytes (%) (Auto) 6.4, Eosinophils (%) (Auto) 0.8, Basophils (%) (Auto) 0.8, Sodium Level 138, Potassium Level 3.6, Chloride Level 99, Carbon Dioxide Level 34H, Anion Gap 6, Blood Urea Nitrogen 1L, Creatinine 0.5L, Estimat Glomerular Filtration Rate > 60, Glucose Level 140H, Calcium Level 7.9L Current Medications Medications (Trade) Dose Ordered Sig/Kayy Route PRN Reason Start Time Stop Time Status Last Admin Dose Admin Acetaminophen (Tylenol) 650 mg Q6H PRN ORAL Mild Pain/Temp > 100.5 07/14/17 19:00 08/13/17 18:59 07/21/17 12:18 Ampicillin 2 gm/ Sodium Chloride 110 ml @ 220 mls/hr EVERY 6 HOURS IVPB 07/21/17 18:30 07/28/17 18:29 07/24/17 12:21 Calcium Carbonate (Tums) 1,000 mg Q4H PRN ORAL HEARTBURN/INDIGESTION 07/20/17 18:00 08/19/17 17:59 07/22/17 16:26 Dextrose (Dextrose 50%) STAT PRN IV Hypoglycemia 07/11/17 20:30 08/10/17 20:29 Diphenhydramine HCl (Benadryl) 25 mg Q6H PRN IVP Itching/Pruritis 07/23/17 13:30 07/25/17 13:29 Finasteride (Proscar) 5 mg DAILY ORAL 07/13/17 09:00 08/12/17 08:59 07/24/17 08:55 Fluconazole/ Sodium Chloride 100 ml @ 100 mls/hr Q24H IV 07/20/17 14:00 07/27/17 13:59 07/24/17 14:08 Heparin Sodium (Porcine) (Heparin 5000 units/ml) 5,000 units EVERY 12 HOURS SUBQ 07/11/17 21:00 08/02/17 08:59 07/24/17 08:38 Lansoprazole (Prevacid) 30 mg DAILY ORAL 07/12/17 09:00 08/11/17 08:59 07/24/17 08:37 Linezolid (Zyvox) 600 mg EVERY 12 HOURS ORAL 07/23/17 21:00 07/28/17 20:59 07/24/17 08:55 Meropenem 1 gm/ Sodium Chloride 55 ml @ 110 mls/hr Q8H IVPB 07/21/17 19:00 07/26/17 18:59 07/24/17 11:11 Miscellaneous Medication (DOWEL SETTING MACHINE OPERATOR Rate Change) 1 ea DAILY PRN MISC rate change 07/23/17 13:30 07/25/17 13:29 Miscellaneous Medication (DOWEL SETTING MACHINE OPERATOR shift volume) 1 ea Q12HR@0700,1900 MISC 07/23/17 19:00 07/25/17 18:59 07/24/17 07:20 Morphine Sulfate 30 ml @ 0 mls/hr Q24H PRN IV For Pain 07/23/17 13:30 07/25/17 13:29 07/24/17 16:37 Morphine Sulfate (Morphine Sulfate) 2 mg Q2H PRN IV Moderate Breakthru Pain (5-7) 07/20/17 19:45 07/27/17 19:44 Morphine Sulfate (Morphine Sulfate) 4 mg Q3H PRN SUBQ Severe Breakthru Pain (>7) 07/20/17 19:44 07/27/17 19:43 07/23/17 09:16 Naloxone HCl (Narcan) 0.1 mg Q1M PRN IVP RR<10/min OR SBP<90 mmHg 07/23/17 13:30 07/25/17 13:29 Nitroglycerin (Ntg) 0.4 mg Q5MIN X 3 DOSES PRN SL Prn Chest Pain 07/11/17 20:32 08/09/17 20:31 Ondansetron HCl (Zofran) 4 mg Q6H PRN IVP Nausea & Vomiting 07/11/17 20:32 08/10/17 20:31 07/22/17 22:38 Potassium Chloride (K-Dur) 40 meq DAILY ORAL 07/20/17 09:00 08/19/17 08:59 07/24/17 08:37 Risperidone (RisperDAL) 4 mg BEDTIME ORAL 07/23/17 21:00 08/22/17 20:59 07/23/17 21:14 Sodium Chloride 1,000 ml @ 50 mls/hr Q20H IV 07/20/17 12:54 08/19/17 12:53 07/23/17 21:15 Brenda Martel MD Jul 24, 2017 16:51
--- NOTE | 2017-07-24 17:03 | Infectious Diseases Prog Note ---
Assessment/Plan Assessment/Plan ASSESSMENT: The patient is a 46-year-old male with; Bowel perf w/ development of 2 Abscess (subphrenic and pelvic) Cx: E coli( ESBL) and ENTEROCOCCUS AVIUM (turcios S) and Bact Fragilis - Repeat CT with persistent LUQ fluid collection and 2 other fluid collections; former suspect still residual abscess; latter 2 possible sterile vs infected s/p second exp lap and abscess draiange -s/p exploratory laparotomy, abdominal washout, evacuation of abscess, drain placement and abdominal closure 07/20; cx p -s/p CT guided drainage APOLLO fluid collection 07/19: Aspiration and drainage of left upper quadrant collection, yielding 150 mL of carin pus. Note that the collection could only be partially evacuated, however, despite confirmation of apparent adequate position of the drain.This may indicate high viscosity of the contents; cx E. fecalis (turcios S), PREVOTELLA LOESCHEII ([place]umgent[place], Clinda R; Metronidazole S) s/p ex lap with left colectomy and transverse colostomy for perforated left colon, evacuation of intrabd abscess, abd washout w/ drain placement 07/09 -CT abd/p w/ 07/18: Postsurgical changes, as described, status post transverse colectomy, Jazz procedure, and placement of multiple surgical drains. Left upper quadrant intraperitoneal fluid collection, despite the presence of a surgical drain in the center of the collection. The presence of gas bubbles within rather than floating nondependently in the collection indicate that this fluid may be viscous. 2 other significant intraperitoneal collections,which do not appear to communicate, possibly loculated. Given presence of somewhat thick enhancing rim surrounding all of these, infected collections are certainly possible ( left paracolic gutter 5.8 cmx 4.3 cm x 8.3cm and R paracolic gutter, medial and inferior to tip R hepatic lobe 8cm x 6.4cm x8cm). Other than the gas within the left upper quadrant collection, previously demonstrated pneumoperitoneum has largely resolved. Left upper quadrant thick walled small bowel loops. Possibly reactive due to adjacent inflammation, enteritis is also possible. No evidence of bowel obstruction. Gallbladder wall edema versus pericholecystic fluid. -OR findings: The omentum was significantly thickened and adhesed to the small bowel and into the left lower quadrant. There was significant inflammatory process throughout the abdomen including a thickening of almost the entire peritoneal lining. The proximal portion of the jejunum was significantly thickened and had a rind of inflammatory infectious tissue on it. left transverse and descending colon, there was significant amount of thickening and significant disease process with some areas of mild ischemia noted and in the descending colon around the descending and sigmoid junction, there was a gross perforation with grossspillage of bowel contents noted in the area. there was a fluid collection/pelvic abscess, which was evacuated. There was a fluid collection in the right upper quadrant around the liver, which was evacuated and a large left upper quadrant subphrenic abscess with significant tissue rind and thickening around the stomach, spleen, peritoneum, and diaphragm in that location. CT : Evidence of perforation of hollow viscus with extensive amount of free air in the upper abdomen and some free fluid is well. Fever/Leukocytosis, recurrent- improving- 2ry to above -leukocytosis resolved -Bcx NTD Elevated ALP -Abd US: Negative for gallstones. There is borderline gallbladder wall thickening, however. Most likely, this is reactive secondary to surrounding inflammation related to recent bowel perforation and surgery for such. However, the possibility of acalculous acute cholecystitis should be considered, and consideration for nuclear medicine hepatobiliary scanning if there is high clinical suspicion history of diarrhea, SP RAMSEY: Improved HTN COPD/asthma. Smoker. History of chronic constipation. Osteoarthritis. ? CAD/AL, hx PLAN: -Continue IV Meropenem abx d#14 and IV Ampicillin(abx d#8 for enterococcal coverage) for intraabdominal abscess -Continue Fluconazole #4 -Continue empiric PO linezolid #2 given recurrent of murky fluid for MRSA and nocardia coverage empirically -plan to treat for 2-4 weeks from 07/20 --07/21 Zosyn #4 --3/14 SP Ertapenem, PO Amoxicillin #3 --3/12 SP Cefepime #2 --3/8 SP Zosyn d# 6 --SP Rocephin d# 5 -Requested micro lab to add fungal, nocardia and AFB cx to latest cultures -f/u CT guided drainage and OR cx -surgery following -wound care -Trend WBC monitor chest x-ray. Nephrology, following Monitor ( Blood ) Cx Discussed with Pardeep. Subjective Allergies: Coded Allergies: No Known Allergies (Unverified , 01/20/17) Subjective afebrile leukocytosis improving Objective Vital Signs Last 24 Hour Vital Signs Date Time Temp Pulse Resp B/P (MAP) Pulse Ox O2 Delivery O2 Flow Rate FiO2 07/24/17 16:20 20 07/24/17 16:00 97.0 95 19 122/79 98 Room Air 97.0 07/24/17 12:00 20 07/24/17 11:57 97.5 101 18 112/68 92 Room Air 97.5 07/24/17 08:19 20 07/24/17 08:00 97.7 97 20 115/74 100 97.7 07/24/17 04:00 98.8 100 18 122/74 98 Nasal Cannula 2.0 98.8 07/24/17 04:00 20 07/24/17 00:00 98.2 110 18 119/74 95 Nasal Cannula 2.0 98.2 07/24/17 00:00 20 07/23/17 22:52 97.3 07/23/17 22:22 97.3 07/23/17 22:20 20 07/23/17 20:00 97.3 111 19 122/85 96 Nasal Cannula 2.0 97.3 07/23/17 20:00 20 Height (Feet): 5 Height (Inches): 9.00 Weight (Pounds): 132 Objective General Appearance: WD/WN, no apparent distress, alert, thin Cardiovascular: normal rate Respiratory/Chest: normal breath sounds, no respiratory distress Abdominal Exam: normal bowel sounds, non tender, soft, other - colostomy Extremities: non-tender Laboratory Tests Test 07/24/17 07:50 White Blood Count 12.6 K/UL (4.8-10.8) H Red Blood Count 3.39 M/UL (4.70-6.10) L Hemoglobin 10.3 G/DL (14.2-18.0) L Hematocrit 30.5 % (42.0-52.0) L Mean Corpuscular Volume 90 FL (80-99) Mean Corpuscular Hemoglobin 30.5 PG (27.0-31.0) Mean Corpuscular Hemoglobin Concent 33.8 G/DL (32.0-36.0) Red Cell Distribution Width 12.4 % (11.6-14.8) Platelet Count 427 K/UL (150-450) Mean Platelet Volume 5.0 FL (6.5-10.1) L Neutrophils (%) (Auto) 83.9 % (45.0-75.0) H Lymphocytes (%) (Auto) 8.2 % (20.0-45.0) L Monocytes (%) (Auto) 6.4 % (1.0-10.0) Eosinophils (%) (Auto) 0.8 % (0.0-3.0) Basophils (%) (Auto) 0.8 % (0.0-2.0) Sodium Level 138 MMOL/L (136-145) Potassium Level 3.6 MMOL/L (3.5-5.1) Chloride Level 99 MMOL/L (98-107) Carbon Dioxide Level 34 MMOL/L (21-32) H Anion Gap 6 mmol/L (5-15) Blood Urea Nitrogen 1 mg/dL (7-18) L Creatinine 0.5 MG/DL (0.55-1.30) L Estimat Glomerular Filtration Rate > 60 mL/min (>60) Glucose Level 140 MG/DL (74-106) H Calcium Level 7.9 MG/DL (8.5-10.1) L Current Medications Medications (Trade) Dose Ordered Sig/Kayy Route PRN Reason Start Time Stop Time Status Last Admin Dose Admin Acetaminophen (Tylenol) 650 mg Q6H PRN ORAL Mild Pain/Temp > 100.5 07/14/17 19:00 08/13/17 18:59 07/21/17 12:18 Ampicillin 2 gm/ Sodium Chloride 110 ml @ 220 mls/hr EVERY 6 HOURS IVPB 07/21/17 18:30 07/28/17 18:29 07/24/17 12:21 Calcium Carbonate (Tums) 1,000 mg Q4H PRN ORAL HEARTBURN/INDIGESTION 07/20/17 18:00 08/19/17 17:59 07/22/17 16:26 Dextrose (Dextrose 50%) STAT PRN IV Hypoglycemia 07/11/17 20:30 08/10/17 20:29 Diphenhydramine HCl (Benadryl) 25 mg Q6H PRN IVP Itching/Pruritis 07/23/17 13:30 07/25/17 13:29 Finasteride (Proscar) 5 mg DAILY ORAL 07/13/17 09:00 08/12/17 08:59 07/24/17 08:55 Fluconazole/ Sodium Chloride 100 ml @ 100 mls/hr Q24H IV 07/20/17 14:00 07/27/17 13:59 07/24/17 14:08 Heparin Sodium (Porcine) (Heparin 5000 units/ml) 5,000 units EVERY 12 HOURS SUBQ 07/11/17 21:00 08/02/17 08:59 07/24/17 08:38 Lansoprazole (Prevacid) 30 mg DAILY ORAL 07/12/17 09:00 08/11/17 08:59 07/24/17 08:37 Linezolid (Zyvox) 600 mg EVERY 12 HOURS ORAL 07/23/17 21:00 07/28/17 20:59 07/24/17 08:55 Meropenem 1 gm/ Sodium Chloride 55 ml @ 110 mls/hr Q8H IVPB 07/21/17 19:00 07/26/17 18:59 07/24/17 11:11 Miscellaneous Medication (RAPID EXTRACTOR OPERATOR Rate Change) 1 ea DAILY PRN MISC rate change 07/23/17 13:30 07/25/17 13:29 Miscellaneous Medication (RAPID EXTRACTOR OPERATOR shift volume) 1 ea Q12HR@0700,1900 MISC 07/23/17 19:00 07/25/17 18:59 07/24/17 07:20 Morphine Sulfate 30 ml @ 0 mls/hr Q24H PRN IV For Pain 07/23/17 13:30 07/25/17 13:29 07/24/17 16:37 Morphine Sulfate (Morphine Sulfate) 2 mg Q2H PRN IV Moderate Breakthru Pain (5-7) 07/20/17 19:45 07/27/17 19:44 Morphine Sulfate (Morphine Sulfate) 4 mg Q3H PRN SUBQ Severe Breakthru Pain (>7) 07/20/17 19:44 07/27/17 19:43 07/23/17 09:16 Naloxone HCl (Narcan) 0.1 mg Q1M PRN IVP RR<10/min OR SBP<90 mmHg 07/23/17 13:30 07/25/17 13:29 Nitroglycerin (Ntg) 0.4 mg Q5MIN X 3 DOSES PRN SL Prn Chest Pain 07/11/17 20:32 08/09/17 20:31 Ondansetron HCl (Zofran) 4 mg Q6H PRN IVP Nausea & Vomiting 07/11/17 20:32 08/10/17 20:31 07/22/17 22:38 Potassium Chloride (K-Dur) 40 meq DAILY ORAL 07/20/17 09:00 08/19/17 08:59 07/24/17 08:37 Risperidone (RisperDAL) 4 mg BEDTIME ORAL 07/23/17 21:00 08/22/17 20:59 07/23/17 21:14 Sodium Chloride 1,000 ml @ 50 mls/hr Q20H IV 07/20/17 12:54 08/19/17 12:53 07/23/17 21:15 Chhaya Menendez M.D. Jul 24, 2017 17:03
[2017-07-24 20:00] VITALS: BP 113/70
--- NOTE | 2017-07-24 21:09 | General Progress Note ---
Assessment/Plan Status: stable Assessment/Plan Schizophrenia CPT Encephalopathy PLAN: - increase the risperidone to 4 mg at bedtime. Subjective Date patient seen: Jul 24, 2017 Neurologic/Psychiatric: Reports: anxiety, depressed, emotional problems Allergies: Coded Allergies: No Known Allergies (Unverified , 01/20/17) Subjective the pt is calmer Objective Last 24 Hour Vital Signs Date Time Temp Pulse Resp B/P (MAP) Pulse Ox O2 Delivery O2 Flow Rate FiO2 07/24/17 20:00 98.2 104 20 113/70 95 98.2 07/24/17 20:00 20 07/24/17 16:20 20 07/24/17 16:00 97.0 95 19 122/79 98 Room Air 97.0 07/24/17 12:00 20 07/24/17 11:57 97.5 101 18 112/68 92 Room Air 97.5 07/24/17 08:19 20 07/24/17 08:00 97.7 97 20 115/74 100 97.7 07/24/17 04:00 98.8 100 18 122/74 98 Nasal Cannula 2.0 98.8 07/24/17 04:00 20 07/24/17 00:00 98.2 110 18 119/74 95 Nasal Cannula 2.0 98.2 07/24/17 00:00 20 07/23/17 22:52 97.3 07/23/17 22:22 97.3 07/23/17 22:20 20 Intake and Output 07/23/17 07/24/17 19:00 07:00 Intake Total 1285 ml 1035 ml Output Total 900 ml 988 ml Balance 385 ml 47 ml Intake Oral 420 ml 250 ml IV Total 865 ml 785 ml Output Urine Total 900 ml 925 ml Drainage Total 63 ml # Voids 4 2 Laboratory Tests 07/24/17 07:50: White Blood Count 12.6H, Red Blood Count 3.39L, Hemoglobin 10.3L, Hematocrit 30.5L, Mean Corpuscular Volume 90, Mean Corpuscular Hemoglobin 30.5, Mean Corpuscular Hemoglobin Concent 33.8, Red Cell Distribution Width 12.4, Platelet Count 427, Mean Platelet Volume 5.0L, Neutrophils (%) (Auto) 83.9H, Lymphocytes (%) (Auto) 8.2L, Monocytes (%) (Auto) 6.4, Eosinophils (%) (Auto) 0.8, Basophils (%) (Auto) 0.8, Sodium Level 138, Potassium Level 3.6, Chloride Level 99, Carbon Dioxide Level 34H, Anion Gap 6, Blood Urea Nitrogen 1L, Creatinine 0.5L, Estimat Glomerular Filtration Rate > 60, Glucose Level 140H, Calcium Level 7.9L Height (Feet): 5 Height (Inches): 9.00 Weight (Pounds): 132 General Appearance: no apparent distress, alert Neurologic: oriented x 3, responsive, depressed affect Idalia Montanez M.D. Jul 24, 2017 21:09
[2017-07-25] VITALS: BP 108/72
[2017-07-25] MEDS: Ampicillin 2 GM in NS 110 ML IVPB SCH ×5 (00:04→23:45)
[2017-07-25] MEDS: Meropenem 1 GM in NS 55 ML IVPB SCH ×3 (02:30→19:25)
[2017-07-25 04:00] VITALS: BP 110/76
[2017-07-25] MEDS: Tums 500mg ORAL PRN (05:57)
[2017-07-25] MEDS: PCA shift volume MISC SCH (06:56)
[2017-07-25] MEDS: PCA Morphine 1mg/ml 30 ML IV PRN ×2 (07:20→21:57)
[2017-07-25 08:00] VITALS: BP 118/62
[2017-07-25 09:47] LABS: BASOPHILS % (AUTO) 0.7 % (0.0-2.0); EOSINOPHILS % (AUTO) 1.2 % (0.0-3.0); HEMATOCRIT 32.9 % (42.0-52.0); LYMPHOCYTES % (AUTO) 10.5 % (20.0-45.0); MEAN CORPUSCULAR VOLUME 91 FL (80-99); MONOCYTES % (AUTO) 3.3 % (1.0-10.0); NEUTROPHILS % (AUTO) 84.4 % (45.0-75.0); PLATELET COUNT 488 K/UL (150-450); RED BLOOD COUNT 3.63 M/UL (4.70-6.10); RED CELL DISTRIBUTION WIDTH 12.9 % (11.6-14.8); WHITE BLOOD COUNT 11.7 K/UL (4.8-10.8)
[2017-07-25 09:58] LABS: ANION GAP 4 mmol/L (5-15); BLOOD UREA NITROGEN 3 mg/dL (7-18); CALCIUM 8.3 MG/DL (8.5-10.1); CARBON DIOXIDE 34 MMOL/L (21-32); CHLORIDE 100 MMOL/L (98-107); CREATININE 0.5 MG/DL (0.55-1.30); POTASSIUM 3.9 MMOL/L (3.5-5.1); SODIUM 138 MMOL/L (136-145)
[2017-07-25] MEDS: Heparin 5000 units/ml inj SUBQ SCH ×2 (10:10→20:20)
--- NOTE | 2017-07-25 11:12 | GI Progress Note ---
Assessment/Plan Problems: (1) Psychiatric disorder ICD Codes: F99 - Mental disorder, not otherwise specified SNOMED: 86728251, 246676233 (2) Amphetamine abuse ICD Codes: F15.10 - Other stimulant abuse, uncomplicated SNOMED: 68642468 (3) Opiate dependence ICD Codes: F11.20 - Opioid dependence, uncomplicated SNOMED: 24979739 Qualifiers: Qualified Codes: F11.20 - Opioid dependence, uncomplicated (4) Perforated abdominal viscus SNOMED: 198735961 Status: stable Status Narrative Discussed with Dr. Castro. Assessment/Plan s/p Exploratory laparotomy, partial bowel resection fu surgical recs IVFs diet adv per surgery colostomy care prn transfusions serial imaging prn pain mgmt fu labs Subjective Subjective doing well pain Objective Last 24 Hour Vital Signs Date Time Temp Pulse Resp B/P (MAP) Pulse Ox O2 Delivery O2 Flow Rate FiO2 07/25/17 07:50 98.4 07/25/17 07:20 98.4 07/25/17 04:00 98.4 100 18 110/76 98 98.4 07/25/17 04:00 20 07/25/17 00:00 20 07/25/17 00:00 98.8 102 18 108/72 99 98.8 07/24/17 20:00 98.2 104 20 113/70 95 98.2 07/24/17 20:00 20 07/24/17 19:22 Nasal Cannula 1.0 24 07/24/17 19:22 97 Nasal Cannula 2.0 28 07/24/17 16:20 20 07/24/17 16:00 97.0 95 19 122/79 98 Room Air 97.0 07/24/17 12:00 20 07/24/17 11:57 97.5 101 18 112/68 92 Room Air 97.5 Intake and Output 07/24/17 07/25/17 19:00 07:00 Intake Total 1075 ml 2890 ml Output Total 1060 ml 2570 ml Balance 15 ml 320 ml Intake Oral 2100 ml IV Total 1075 ml 790 ml Output Urine Total 900 ml 2500 ml Drainage Total 160 ml 70 ml # Voids 3 Laboratory Tests Test 07/25/17 09:30 White Blood Count 11.7 K/UL (4.8-10.8) H Red Blood Count 3.63 M/UL (4.70-6.10) L Hemoglobin 11.0 G/DL (14.2-18.0) L Hematocrit 32.9 % (42.0-52.0) L Mean Corpuscular Volume 91 FL (80-99) Mean Corpuscular Hemoglobin 30.2 PG (27.0-31.0) Mean Corpuscular Hemoglobin Concent 33.4 G/DL (32.0-36.0) Red Cell Distribution Width 12.9 % (11.6-14.8) Platelet Count 488 K/UL (150-450) H Mean Platelet Volume 5.0 FL (6.5-10.1) L Neutrophils (%) (Auto) 84.4 % (45.0-75.0) H Lymphocytes (%) (Auto) 10.5 % (20.0-45.0) L Monocytes (%) (Auto) 3.3 % (1.0-10.0) Eosinophils (%) (Auto) 1.2 % (0.0-3.0) Basophils (%) (Auto) 0.7 % (0.0-2.0) Sodium Level 138 MMOL/L (136-145) Potassium Level 3.9 MMOL/L (3.5-5.1) Chloride Level 100 MMOL/L (98-107) Carbon Dioxide Level 34 MMOL/L (21-32) H Anion Gap 4 mmol/L (5-15) L Blood Urea Nitrogen 3 mg/dL (7-18) L Creatinine 0.5 MG/DL (0.55-1.30) L Estimat Glomerular Filtration Rate > 60 mL/min (>60) Glucose Level 113 MG/DL (74-106) H Calcium Level 8.3 MG/DL (8.5-10.1) L Height (Feet): 5 Height (Inches): 9.00 Weight (Pounds): 140 General Appearance: WD/WN, no apparent distress, alert Cardiovascular: normal rate Respiratory/Chest: normal breath sounds, no respiratory distress Abdominal Exam: normal bowel sounds, non tender, soft, incision site Extremities: normal range of motion, non-tender Samia Albarran N.P. Jul 25, 2017 11:12
[2017-07-25 12:00] VITALS: BP 122/75
--- NOTE | 2017-07-25 12:30 | General Surgery Progress Note ---
General Surgery-Progress Note Subjective Procedure Performed exploratory laparotomy, abdominal washout, evacuation of abscess, drain placement and abdominal closure Symptoms: improved Additional Comments pain improving. no n/v/f/c. tolerating diet. stool in ostomy. drain improved. leukocytosis improved. does not want to participate in physical therapy and move much. Objective Last 24 Hour Vital Signs Date Time Temp Pulse Resp B/P (MAP) Pulse Ox O2 Delivery O2 Flow Rate FiO2 07/25/17 08:00 15 07/25/17 08:00 99.0 105 18 118/62 92 99.0 07/25/17 07:50 98.4 07/25/17 07:20 98.4 07/25/17 04:00 98.4 100 18 110/76 98 98.4 07/25/17 04:00 20 07/25/17 00:00 20 07/25/17 00:00 98.8 102 18 108/72 99 98.8 07/24/17 20:00 98.2 104 20 113/70 95 98.2 07/24/17 20:00 20 07/24/17 19:22 Nasal Cannula 1.0 24 07/24/17 19:22 97 Nasal Cannula 2.0 28 07/24/17 16:20 20 07/24/17 16:00 97.0 95 19 122/79 98 Room Air 97.0 I&O Intake and Output 07/24/17 07/25/17 19:00 07:00 Intake Total 1075 ml 2890 ml Output Total 1060 ml 2570 ml Balance 15 ml 320 ml Intake Oral 2100 ml IV Total 1075 ml 790 ml Output Urine Total 900 ml 2500 ml Drainage Total 160 ml 70 ml # Voids 3 Dressing: saturated Wound: clean, other - midline intact, good granulation tissue forming. dressing changes going well. no signs of active infection in wound. Drains: reginaldo Cardiovascular: RSR Respiratory: clear Abdomen: soft, flat, non-tender, present bowel sounds, other - ostomy viable with stool in bag. Extremities: no edema, no tenderness, no cyanosis Laboratory Tests Test 07/25/17 09:30 White Blood Count 11.7 K/UL (4.8-10.8) H Red Blood Count 3.63 M/UL (4.70-6.10) L Hemoglobin 11.0 G/DL (14.2-18.0) L Hematocrit 32.9 % (42.0-52.0) L Mean Corpuscular Volume 91 FL (80-99) Mean Corpuscular Hemoglobin 30.2 PG (27.0-31.0) Mean Corpuscular Hemoglobin Concent 33.4 G/DL (32.0-36.0) Red Cell Distribution Width 12.9 % (11.6-14.8) Platelet Count 488 K/UL (150-450) H Mean Platelet Volume 5.0 FL (6.5-10.1) L Neutrophils (%) (Auto) 84.4 % (45.0-75.0) H Lymphocytes (%) (Auto) 10.5 % (20.0-45.0) L Monocytes (%) (Auto) 3.3 % (1.0-10.0) Eosinophils (%) (Auto) 1.2 % (0.0-3.0) Basophils (%) (Auto) 0.7 % (0.0-2.0) Sodium Level 138 MMOL/L (136-145) Potassium Level 3.9 MMOL/L (3.5-5.1) Chloride Level 100 MMOL/L (98-107) Carbon Dioxide Level 34 MMOL/L (21-32) H Anion Gap 4 mmol/L (5-15) L Blood Urea Nitrogen 3 mg/dL (7-18) L Creatinine 0.5 MG/DL (0.55-1.30) L Estimat Glomerular Filtration Rate > 60 mL/min (>60) Glucose Level 113 MG/DL (74-106) H Calcium Level 8.3 MG/DL (8.5-10.1) L Assessment Post-op Diagnosis abdominal dehiscence, intraabdominal abscess Plan Problems: (1) Perforated abdominal viscus Assessment & Plan: perforated abdominal viscus as noted on CT. exam with peritonitis generalized but with focus in LLQ. history of psych illness but currently AAOx4 and cooperative with exam. poor historian. possible drug seeking behavior. s/p Ex lap with abdominal washout, left colectomy and creation of transverse colostomy. Noted to have larger perforation in sigmoid likely stercoarl given operative findings. large left perisplenic abscess evacuated. drains placed. post operatively improved but after a few days noted to have purulent drainage out of left upper quadrant drain. CT demonstrated reaccumulation of large complex abscess despite extensive washout on initial operation. IR drain placed and pus evacuated but could not resolve complex collection. micro with multiorganism. midline wound dehiscence. decision made for re-exploration with washout, drains, and midline closure. s/p re-exploration with washout, drains, and midline closure on 07/20. large complex abscess noted, evacuated, washout, drains placed. midline fascia closed. doing well. recovering. improved pain control with HIDE CURER. afebrile, HD stable, labs reviewed. leukocytosis improving. 2 drains remaining. one in superficial left upper quadrant with serosang output. one in deep left upper quadrant with thick murky serosang output... fortunately the deep drain which had murky think fluid drainage is becoming more serous with particulate now!! (hopefully not reaccumulation of abscess forming and may be surgicell/flowseal that was being liquified and evacuated). -regular diet as tolerated -pt/ot, ambulate and out of bed, incentive spirometry -HIDE CURER for pain control. can wean manager statistics -cont IV Abx. appreciate ID input. -midline wound packing and dressings TID -drain care and management. Gilberto Michelle Jul 25, 2017 12:29
--- NOTE | 2017-07-25 13:04 | Nephrology Progress Note ---
Assessment/Plan Problem List: (1) ARF (acute renal failure) (2) UTI (urinary tract infection) (3) Psychiatric disorder (4) Acute abdomen Assessment Status: WBCs wnl had multi abdominal drains acute renal failure- extended left colectomy due to perf transverse colostomy creation Plan Plan: per charles, 07/20/17 Mag and K supplement as needed DC horan DC IV PT advance diet Post op ( OP 07/08/17) Horan- 2D echo normal Ej Fx Albumin bollous monitor renal parameters K and Phos and Mag supplement as needed Subjective ROS Limited/Unobtainable: No Objective Objective Last 24 Hour Vital Signs Date Time Temp Pulse Resp B/P (MAP) Pulse Ox O2 Delivery O2 Flow Rate FiO2 07/25/17 12:00 16 07/25/17 08:00 15 07/25/17 08:00 99.0 105 18 118/62 92 99.0 07/25/17 07:50 98.4 07/25/17 07:20 98.4 07/25/17 04:00 98.4 100 18 110/76 98 98.4 07/25/17 04:00 20 07/25/17 00:00 20 07/25/17 00:00 98.8 102 18 108/72 99 98.8 07/24/17 20:00 98.2 104 20 113/70 95 98.2 07/24/17 20:00 20 07/24/17 19:22 Nasal Cannula 1.0 24 07/24/17 19:22 97 Nasal Cannula 2.0 28 07/24/17 16:20 20 07/24/17 16:00 97.0 95 19 122/79 98 Room Air 97.0 Intake and Output 07/24/17 07/25/17 19:00 07:00 Intake Total 1075 ml 2890 ml Output Total 1060 ml 2570 ml Balance 15 ml 320 ml Intake Oral 2100 ml IV Total 1075 ml 790 ml Output Urine Total 900 ml 2500 ml Drainage Total 160 ml 70 ml # Voids 3 Laboratory Tests 07/25/17 09:30: White Blood Count 11.7H, Red Blood Count 3.63L, Hemoglobin 11.0L, Hematocrit 32.9L, Mean Corpuscular Volume 91, Mean Corpuscular Hemoglobin 30.2, Mean Corpuscular Hemoglobin Concent 33.4, Red Cell Distribution Width 12.9, Platelet Count 488H, Mean Platelet Volume 5.0L, Neutrophils (%) (Auto) 84.4H, Lymphocytes (%) (Auto) 10.5L, Monocytes (%) (Auto) 3.3, Eosinophils (%) (Auto) 1.2, Basophils (%) (Auto) 0.7, Sodium Level 138, Potassium Level 3.9, Chloride Level 100, Carbon Dioxide Level 34H, Anion Gap 4L, Blood Urea Nitrogen 3L, Creatinine 0.5L, Estimat Glomerular Filtration Rate > 60, Glucose Level 113H, Calcium Level 8.3L Height (Feet): 5 Height (Inches): 9.00 Weight (Pounds): 140 General Appearance: no apparent distress Objective no other change NOEMY MARK Jul 25, 2017 13:04
[2017-07-25 16:00] VITALS: BP 102/65
[2017-07-25] MEDS ORDERED: Tubing IV Secondary IV ONE (17:12)
--- NOTE | 2017-07-25 17:17 | Pulmonology Progress Note ---
Assessment/Plan Problems: (1) Perforated abdominal viscus (2) ARF (acute renal failure) (3) Psychosis (4) Acute constipation (5) Amphetamine abuse Assessment/Plan symptomatic treamtment f/u wbc and clinically d/w surgeon iv fluids continue anbx pain management med/surg check electrolytes Subjective ROS Limited/Unobtainable: No Constitutional: Reports: no symptoms HEENT: Repors: no symptoms Respiratory: Reports: no symptoms Allergies: Coded Allergies: No Known Allergies (Unverified , 01/20/17) Objective Last 24 Hour Vital Signs Date Time Temp Pulse Resp B/P (MAP) Pulse Ox O2 Delivery O2 Flow Rate FiO2 07/25/17 16:00 98.8 106 18 102/65 99 98.8 07/25/17 16:00 16 07/25/17 12:00 98.6 109 18 122/75 94 98.6 07/25/17 12:00 16 07/25/17 08:00 15 07/25/17 08:00 99.0 105 18 118/62 92 99.0 07/25/17 07:50 98.4 07/25/17 07:20 98.4 07/25/17 04:00 98.4 100 18 110/76 98 98.4 07/25/17 04:00 20 07/25/17 00:00 20 07/25/17 00:00 98.8 102 18 108/72 99 98.8 07/24/17 20:00 98.2 104 20 113/70 95 98.2 07/24/17 20:00 20 07/24/17 19:22 Nasal Cannula 1.0 24 07/24/17 19:22 97 Nasal Cannula 2.0 28 Intake and Output 07/24/17 07/25/17 19:00 07:00 Intake Total 1075 ml 2890 ml Output Total 1060 ml 2570 ml Balance 15 ml 320 ml Intake Oral 2100 ml IV Total 1075 ml 790 ml Output Urine Total 900 ml 2500 ml Drainage Total 160 ml 70 ml # Voids 3 Objective General Appearance: WD/WN Lines, tubes and drains: peripheral HEENT: normocephalic, atraumatic Neck: non-tender, normal alignment Respiratory/Chest: chest wall non-tender, lungs clear Breasts: no masses Cardiovascular/Chest: normal peripheral pulses, normal rate Abdomen: normal bowel sounds, clean dressing Genitourinary/Rectal: normal genital exam, heme negative stool Extremities: normal range of motion, non-tender Skin Exam: normal pigmentation Laboratory Tests 07/25/17 09:30: White Blood Count 11.7H, Red Blood Count 3.63L, Hemoglobin 11.0L, Hematocrit 32.9L, Mean Corpuscular Volume 91, Mean Corpuscular Hemoglobin 30.2, Mean Corpuscular Hemoglobin Concent 33.4, Red Cell Distribution Width 12.9, Platelet Count 488H, Mean Platelet Volume 5.0L, Neutrophils (%) (Auto) 84.4H, Lymphocytes (%) (Auto) 10.5L, Monocytes (%) (Auto) 3.3, Eosinophils (%) (Auto) 1.2, Basophils (%) (Auto) 0.7, Sodium Level 138, Potassium Level 3.9, Chloride Level 100, Carbon Dioxide Level 34H, Anion Gap 4L, Blood Urea Nitrogen 3L, Creatinine 0.5L, Estimat Glomerular Filtration Rate > 60, Glucose Level 113H, Calcium Level 8.3L Current Medications Medications (Trade) Dose Ordered Sig/Kayy Route PRN Reason Start Time Stop Time Status Last Admin Dose Admin Acetaminophen (Tylenol) 650 mg Q6H PRN ORAL Mild Pain/Temp > 100.5 07/14/17 19:00 08/13/17 18:59 07/21/17 12:18 Ampicillin 2 gm/ Sodium Chloride 110 ml @ 220 mls/hr EVERY 6 HOURS IVPB 07/21/17 18:30 08/01/17 18:29 07/25/17 12:22 Calcium Carbonate (Tums) 1,000 mg Q4H PRN ORAL HEARTBURN/INDIGESTION 07/20/17 18:00 08/19/17 17:59 07/25/17 05:57 Dextrose (Dextrose 50%) STAT PRN IV Hypoglycemia 07/11/17 20:30 08/10/17 20:29 Diphenhydramine HCl (Benadryl) 25 mg Q6H PRN IVP Itching 07/25/17 17:00 08/24/17 16:59 UNV Finasteride (Proscar) 5 mg DAILY ORAL 07/13/17 09:00 08/12/17 08:59 07/25/17 09:26 Fluconazole/ Sodium Chloride 100 ml @ 100 mls/hr Q24H IV 07/20/17 14:00 08/01/17 13:59 07/25/17 14:50 Heparin Sodium (Porcine) (Heparin 5000 units/ml) 5,000 units EVERY 12 HOURS SUBQ 07/11/17 21:00 08/02/17 08:59 07/25/17 10:10 Lansoprazole (Prevacid) 30 mg DAILY ORAL 07/12/17 09:00 08/11/17 08:59 07/25/17 09:27 Linezolid (Zyvox) 600 mg EVERY 12 HOURS ORAL 07/23/17 21:00 08/03/17 20:59 07/25/17 10:08 Meropenem 1 gm/ Sodium Chloride 55 ml @ 110 mls/hr Q8H IVPB 07/21/17 19:00 08/01/17 18:59 07/25/17 11:37 Miscellaneous Medication (CRT shift volume) 1 ea Q12HR@0700,1900 MISC 07/23/17 19:00 07/25/17 18:59 07/25/17 06:56 Morphine Sulfate 30 ml @ 0 mls/hr CRT Protocol PRN IV For Pain 07/25/17 13:00 07/27/17 12:59 Morphine Sulfate (Morphine Sulfate) 2 mg Q2H PRN IV Moderate Breakthru Pain (5-7) 07/20/17 19:45 07/27/17 19:44 Morphine Sulfate (Morphine Sulfate) 4 mg Q3H PRN SUBQ Severe Breakthru Pain (>7) 07/20/17 19:44 07/27/17 19:43 07/23/17 09:16 Nitroglycerin (Ntg) 0.4 mg Q5MIN X 3 DOSES PRN SL Prn Chest Pain 07/11/17 20:32 08/09/17 20:31 Ondansetron HCl (Zofran) 4 mg Q6H PRN IVP Nausea & Vomiting 07/11/17 20:32 08/10/17 20:31 07/25/17 04:08 Potassium Chloride (K-Dur) 40 meq DAILY ORAL 07/20/17 09:00 08/19/17 08:59 07/25/17 09:27 Risperidone (RisperDAL) 4 mg BEDTIME ORAL 07/23/17 21:00 08/22/17 20:59 07/24/17 20:40 Sodium Chloride 1,000 ml @ 50 mls/hr Q20H IV 07/20/17 12:54 08/19/17 12:53 07/24/17 17:18 Temazepam (Restoril) 15 mg HSPRN PRN ORAL Insomnia 07/25/17 00:15 08/01/17 00:14 07/25/17 00:32 Brenda Martel MD Jul 25, 2017 17:17
--- NOTE | 2017-07-25 17:18 | Infectious Diseases Prog Note ---
Assessment/Plan Assessment/Plan ASSESSMENT: The patient is a 46-year-old male with; Bowel perf w/ development of 2 Abscess (subphrenic and pelvic) Cx: E coli( ESBL) and ENTEROCOCCUS AVIUM (turcios S) and Bact Fragilis - Repeat CT with persistent LUQ fluid collection and 2 other fluid collections; former suspect still residual abscess; latter 2 possible sterile vs infected s/p second exp lap and abscess draiange -s/p exploratory laparotomy, abdominal washout, evacuation of abscess, drain placement and abdominal closure 07/20; cx p -s/p CT guided drainage APOLLO fluid collection 07/19: Aspiration and drainage of left upper quadrant collection, yielding 150 mL of carin pus. Note that the collection could only be partially evacuated, however, despite confirmation of apparent adequate position of the drain.This may indicate high viscosity of the contents; cx E. fecalis (turcios S), PREVOTELLA LOESCHEII (Aumgentin, Clinda R; Metronidazole S) s/p ex lap with left colectomy and transverse colostomy for perforated left colon, evacuation of intrabd abscess, abd washout w/ drain placement 07/09 -CT abd/p w/ 07/18: Postsurgical changes, as described, status post transverse colectomy, Jazz procedure, and placement of multiple surgical drains. Left upper quadrant intraperitoneal fluid collection, despite the presence of a surgical drain in the center of the collection. The presence of gas bubbles within rather than floating nondependently in the collection indicate that this fluid may be viscous. 2 other significant intraperitoneal collections,which do not appear to communicate, possibly loculated. Given presence of somewhat thick enhancing rim surrounding all of these, infected collections are certainly possible ( left paracolic gutter 5.8 cmx 4.3 cm x 8.3cm and R paracolic gutter, medial and inferior to tip R hepatic lobe 8cm x 6.4cm x8cm). Other than the gas within the left upper quadrant collection, previously demonstrated pneumoperitoneum has largely resolved. Left upper quadrant thick walled small bowel loops. Possibly reactive due to adjacent inflammation, enteritis is also possible. No evidence of bowel obstruction. Gallbladder wall edema versus pericholecystic fluid. -OR findings: The omentum was significantly thickened and adhesed to the small bowel and into the left lower quadrant. There was significant inflammatory process throughout the abdomen including a thickening of almost the entire peritoneal lining. The proximal portion of the jejunum was significantly thickened and had a rind of inflammatory infectious tissue on it. left transverse and descending colon, there was significant amount of thickening and significant disease process with some areas of mild ischemia noted and in the descending colon around the descending and sigmoid junction, there was a gross perforation with grossspillage of bowel contents noted in the area. there was a fluid collection/pelvic abscess, which was evacuated. There was a fluid collection in the right upper quadrant around the liver, which was evacuated and a large left upper quadrant subphrenic abscess with significant tissue rind and thickening around the stomach, spleen, peritoneum, and diaphragm in that location. CT : Evidence of perforation of hollow viscus with extensive amount of free air in the upper abdomen and some free fluid is well. Fever/Leukocytosis, recurrent- improving- 2ry to above -Bcx NTD Elevated ALP -Abd US: Negative for gallstones. There is borderline gallbladder wall thickening, however. Most likely, this is reactive secondary to surrounding inflammation related to recent bowel perforation and surgery for such. However, the possibility of acalculous acute cholecystitis should be considered, and consideration for nuclear medicine hepatobiliary scanning if there is high clinical suspicion history of diarrhea, SP RAMSEY: Improved HTN COPD/asthma. Smoker. History of chronic constipation. Osteoarthritis. ? CAD/CT, hx PLAN: -Continue IV Meropenem abx d#15 and IV Ampicillin(abx d#9 for enterococcal coverage) for intraabdominal abscess -Continue Fluconazole #5 -Continue empiric PO linezolid #3 given recurrent of murky fluid for MRSA and nocardia coverage empirically -plan to treat for 2-4 weeks from 07/20 --07/21 Zosyn #4 --3/14 SP Ertapenem, PO Amoxicillin #3 --3/12 SP Cefepime #2 --3/8 SP Zosyn d# 6 --SP Rocephin d# 5 -Requested micro lab to add fungal, nocardia and AFB cx to latest cultures -f/u CT guided drainage and OR cx -surgery following -wound care -Trend WBC monitor chest x-ray. Nephrology, following Monitor ( Blood ) Cx Discussed with Pardeep. Subjective Allergies: Coded Allergies: No Known Allergies (Unverified , 01/20/17) Subjective afebrile leukocytosis improving Objective Vital Signs Last 24 Hour Vital Signs Date Time Temp Pulse Resp B/P (MAP) Pulse Ox O2 Delivery O2 Flow Rate FiO2 07/25/17 16:00 98.8 106 18 102/65 99 98.8 07/25/17 16:00 16 07/25/17 12:00 98.6 109 18 122/75 94 98.6 07/25/17 12:00 16 07/25/17 08:00 15 07/25/17 08:00 99.0 105 18 118/62 92 99.0 07/25/17 07:50 98.4 07/25/17 07:20 98.4 07/25/17 04:00 98.4 100 18 110/76 98 98.4 07/25/17 04:00 20 07/25/17 00:00 20 07/25/17 00:00 98.8 102 18 108/72 99 98.8 07/24/17 20:00 98.2 104 20 113/70 95 98.2 07/24/17 20:00 20 07/24/17 19:22 Nasal Cannula 1.0 24 07/24/17 19:22 97 Nasal Cannula 2.0 28 Height (Feet): 5 Height (Inches): 9.00 Weight (Pounds): 140 Objective General Appearance: WD/WN, no apparent distress, alert, thin Cardiovascular: normal rate Respiratory/Chest: normal breath sounds, no respiratory distress Abdominal Exam: normal bowel sounds, non tender, soft, other - colostomy Extremities: non-tender Laboratory Tests Test 07/25/17 09:30 White Blood Count 11.7 K/UL (4.8-10.8) H Red Blood Count 3.63 M/UL (4.70-6.10) L Hemoglobin 11.0 G/DL (14.2-18.0) L Hematocrit 32.9 % (42.0-52.0) L Mean Corpuscular Volume 91 FL (80-99) Mean Corpuscular Hemoglobin 30.2 PG (27.0-31.0) Mean Corpuscular Hemoglobin Concent 33.4 G/DL (32.0-36.0) Red Cell Distribution Width 12.9 % (11.6-14.8) Platelet Count 488 K/UL (150-450) H Mean Platelet Volume 5.0 FL (6.5-10.1) L Neutrophils (%) (Auto) 84.4 % (45.0-75.0) H Lymphocytes (%) (Auto) 10.5 % (20.0-45.0) L Monocytes (%) (Auto) 3.3 % (1.0-10.0) Eosinophils (%) (Auto) 1.2 % (0.0-3.0) Basophils (%) (Auto) 0.7 % (0.0-2.0) Sodium Level 138 MMOL/L (136-145) Potassium Level 3.9 MMOL/L (3.5-5.1) Chloride Level 100 MMOL/L (98-107) Carbon Dioxide Level 34 MMOL/L (21-32) H Anion Gap 4 mmol/L (5-15) L Blood Urea Nitrogen 3 mg/dL (7-18) L Creatinine 0.5 MG/DL (0.55-1.30) L Estimat Glomerular Filtration Rate > 60 mL/min (>60) Glucose Level 113 MG/DL (74-106) H Calcium Level 8.3 MG/DL (8.5-10.1) L Current Medications Medications (Trade) Dose Ordered Sig/Kayy Route PRN Reason Start Time Stop Time Status Last Admin Dose Admin Acetaminophen (Tylenol) 650 mg Q6H PRN ORAL Mild Pain/Temp > 100.5 07/14/17 19:00 08/13/17 18:59 07/21/17 12:18 Ampicillin 2 gm/ Sodium Chloride 110 ml @ 220 mls/hr EVERY 6 HOURS IVPB 07/21/17 18:30 08/01/17 18:29 07/25/17 12:22 Calcium Carbonate (Tums) 1,000 mg Q4H PRN ORAL HEARTBURN/INDIGESTION 07/20/17 18:00 08/19/17 17:59 07/25/17 05:57 Dextrose (Dextrose 50%) STAT PRN IV Hypoglycemia 07/11/17 20:30 08/10/17 20:29 Diphenhydramine HCl (Benadryl) 25 mg Q6H PRN IVP Itching 07/25/17 17:00 08/24/17 16:59 UNV Finasteride (Proscar) 5 mg DAILY ORAL 07/13/17 09:00 08/12/17 08:59 07/25/17 09:26 Fluconazole/ Sodium Chloride 100 ml @ 100 mls/hr Q24H IV 07/20/17 14:00 08/01/17 13:59 07/25/17 14:50 Heparin Sodium (Porcine) (Heparin 5000 units/ml) 5,000 units EVERY 12 HOURS SUBQ 07/11/17 21:00 08/02/17 08:59 07/25/17 10:10 Lansoprazole (Prevacid) 30 mg DAILY ORAL 07/12/17 09:00 08/11/17 08:59 07/25/17 09:27 Linezolid (Zyvox) 600 mg EVERY 12 HOURS ORAL 07/23/17 21:00 08/03/17 20:59 07/25/17 10:08 Meropenem 1 gm/ Sodium Chloride 55 ml @ 110 mls/hr Q8H IVPB 07/21/17 19:00 08/01/17 18:59 07/25/17 11:37 Miscellaneous Medication (HOME SERVICE CONSULTANT shift volume) 1 ea Q12HR@0700,1900 MISC 07/23/17 19:00 07/25/17 18:59 07/25/17 06:56 Morphine Sulfate 30 ml @ 0 mls/hr HOME SERVICE CONSULTANT Protocol PRN IV For Pain 07/25/17 13:00 07/27/17 12:59 Morphine Sulfate (Morphine Sulfate) 2 mg Q2H PRN IV Moderate Breakthru Pain (5-7) 07/20/17 19:45 07/27/17 19:44 Morphine Sulfate (Morphine Sulfate) 4 mg Q3H PRN SUBQ Severe Breakthru Pain (>7) 07/20/17 19:44 07/27/17 19:43 07/23/17 09:16 Nitroglycerin (Ntg) 0.4 mg Q5MIN X 3 DOSES PRN SL Prn Chest Pain 07/11/17 20:32 08/09/17 20:31 Ondansetron HCl (Zofran) 4 mg Q6H PRN IVP Nausea & Vomiting 07/11/17 20:32 08/10/17 20:31 07/25/17 04:08 Potassium Chloride (K-Dur) 40 meq DAILY ORAL 07/20/17 09:00 08/19/17 08:59 07/25/17 09:27 Risperidone (RisperDAL) 4 mg BEDTIME ORAL 07/23/17 21:00 08/22/17 20:59 07/24/17 20:40 Sodium Chloride 1,000 ml @ 50 mls/hr Q20H IV 07/20/17 12:54 08/19/17 12:53 07/24/17 17:18 Temazepam (Restoril) 15 mg HSPRN PRN ORAL Insomnia 07/25/17 00:15 08/01/17 00:14 07/25/17 00:32 Chhaya Menendez M.D. Jul 25, 2017 17:17
[2017-07-25] MEDS: DiphenhydrAMINE 50mg/ml Inj IVP PRN (17:41)
[2017-07-25 19:34] VITALS: BP 118/79
--- NOTE | 2017-07-25 21:58 | General Progress Note ---
Assessment/Plan Status: stable, progressing Assessment/Plan Schizophrenia CPT Encephalopathy PLAN: - increase the risperidone to 4 mg at bedtime. Subjective Date patient seen: Jul 25, 2017 Neurologic/Psychiatric: Reports: anxiety, depressed Allergies: Coded Allergies: No Known Allergies (Unverified , 01/20/17) Subjective the pt is calmer more organized. Objective Last 24 Hour Vital Signs Date Time Temp Pulse Resp B/P (MAP) Pulse Ox O2 Delivery O2 Flow Rate FiO2 07/25/17 19:39 16 07/25/17 19:34 98.2 95 20 118/79 99 Room Air 98.2 07/25/17 16:00 98.8 106 18 102/65 99 98.8 07/25/17 16:00 16 07/25/17 12:00 98.6 109 18 122/75 94 98.6 07/25/17 12:00 16 07/25/17 08:00 15 07/25/17 08:00 99.0 105 18 118/62 92 99.0 07/25/17 07:50 98.4 07/25/17 07:20 98.4 07/25/17 04:00 98.4 100 18 110/76 98 98.4 07/25/17 04:00 20 07/25/17 00:00 20 07/25/17 00:00 98.8 102 18 108/72 99 98.8 Intake and Output 07/24/17 07/25/17 19:00 07:00 Intake Total 1075 ml 2890 ml Output Total 1060 ml 2570 ml Balance 15 ml 320 ml Intake Oral 2100 ml IV Total 1075 ml 790 ml Output Urine Total 900 ml 2500 ml Drainage Total 160 ml 70 ml # Voids 3 Laboratory Tests 07/25/17 09:30: White Blood Count 11.7H, Red Blood Count 3.63L, Hemoglobin 11.0L, Hematocrit 32.9L, Mean Corpuscular Volume 91, Mean Corpuscular Hemoglobin 30.2, Mean Corpuscular Hemoglobin Concent 33.4, Red Cell Distribution Width 12.9, Platelet Count 488H, Mean Platelet Volume 5.0L, Neutrophils (%) (Auto) 84.4H, Lymphocytes (%) (Auto) 10.5L, Monocytes (%) (Auto) 3.3, Eosinophils (%) (Auto) 1.2, Basophils (%) (Auto) 0.7, Sodium Level 138, Potassium Level 3.9, Chloride Level 100, Carbon Dioxide Level 34H, Anion Gap 4L, Blood Urea Nitrogen 3L, Creatinine 0.5L, Estimat Glomerular Filtration Rate > 60, Glucose Level 113H, Calcium Level 8.3L Height (Feet): 5 Height (Inches): 9.00 Weight (Pounds): 140 General Appearance: no apparent distress, alert Neurologic: alert, oriented x 3, responsive, depressed affect Idalia Montanez M.D. Jul 25, 2017 21:58
[2017-07-26 00:23] VITALS: BP 109/68
[2017-07-26] MEDS: Meropenem 1 GM in NS 55 ML IVPB SCH ×3 (03:00→18:08)
[2017-07-26 04:00] VITALS: BP 112/70
[2017-07-26] MEDS: Ampicillin 2 GM in NS 110 ML IVPB SCH ×4 (05:58→23:35)
[2017-07-26 08:28] VITALS: BP 116/80
[2017-07-26 08:45] LABS: BASOPHILS % (AUTO) 0.8 % (0.0-2.0); EOSINOPHILS % (AUTO) 1.3 % (0.0-3.0); HEMATOCRIT 28.8 % (42.0-52.0); HEMOGLOBIN 9.7 G/DL (14.2-18.0); LYMPHOCYTES % (AUTO) 10.5 % (20.0-45.0); MEAN CORPUSCULAR VOLUME 91 FL (80-99); MONOCYTES % (AUTO) 3.8 % (1.0-10.0); NEUTROPHILS % (AUTO) 83.6 % (45.0-75.0); PLATELET COUNT 399 K/UL (150-450); RED BLOOD COUNT 3.18 M/UL (4.70-6.10); RED CELL DISTRIBUTION WIDTH 12.7 % (11.6-14.8); WHITE BLOOD COUNT 10.8 K/UL (4.8-10.8)
[2017-07-26 09:02] LABS: ANION GAP 8 mmol/L (5-15); BLOOD UREA NITROGEN 3 mg/dL (7-18); CARBON DIOXIDE 28 MMOL/L (21-32); CHLORIDE 101 MMOL/L (98-107); CREATININE 0.5 MG/DL (0.55-1.30); SODIUM 137 MMOL/L (136-145)
[2017-07-26] MEDS: Heparin 5000 units/ml inj SUBQ SCH ×2 (09:08→20:52)
[2017-07-26] MEDS: DiphenhydrAMINE 50mg/ml Inj IVP PRN (09:53)
--- NOTE | 2017-07-26 11:34 | GI Progress Note ---
Assessment/Plan Problems: (1) Psychiatric disorder ICD Codes: F99 - Mental disorder, not otherwise specified SNOMED: 92646583, 810289697 (2) Amphetamine abuse ICD Codes: F15.10 - Other stimulant abuse, uncomplicated SNOMED: 05322979 (3) Opiate dependence ICD Codes: F11.20 - Opioid dependence, uncomplicated SNOMED: 37239436 Qualifiers: Qualified Codes: F11.20 - Opioid dependence, uncomplicated (4) Perforated abdominal viscus SNOMED: 847961891 Status: stable Status Narrative Discussed with Dr. Castro. Assessment/Plan s/p Exploratory laparotomy, partial bowel resection fu surgical recs IVFs diet adv per surgery colostomy care prn transfusions serial imaging prn pain mgmt fu labs Subjective Subjective doing well pain Objective Last 24 Hour Vital Signs Date Time Temp Pulse Resp B/P (MAP) Pulse Ox O2 Delivery O2 Flow Rate FiO2 07/26/17 08:28 97.9 94 20 116/80 93 97.9 07/26/17 08:00 14 07/26/17 04:00 98.9 104 20 112/70 91 Room Air 98.9 07/26/17 04:00 14 07/26/17 00:23 97.2 106 20 109/68 93 Room Air 97.2 07/26/17 00:00 16 07/25/17 19:39 16 07/25/17 19:34 98.2 95 20 118/79 99 Room Air 98.2 07/25/17 16:00 98.8 106 18 102/65 99 98.8 07/25/17 16:00 16 07/25/17 12:00 98.6 109 18 122/75 94 98.6 07/25/17 12:00 16 Intake and Output 07/25/17 07/26/17 19:00 07:00 Intake Total 655 ml Output Total 970 ml 895 ml Balance -315 ml -895 ml Intake Oral 240 ml IV Total 415 ml Output Urine Total 900 ml 850 ml Drainage Total 70 ml 45 ml Laboratory Tests Test 07/26/17 07:20 White Blood Count 10.8 K/UL (4.8-10.8) Red Blood Count 3.18 M/UL (4.70-6.10) L Hemoglobin 9.7 G/DL (14.2-18.0) L Hematocrit 28.8 % (42.0-52.0) L Mean Corpuscular Volume 91 FL (80-99) Mean Corpuscular Hemoglobin 30.7 PG (27.0-31.0) Mean Corpuscular Hemoglobin Concent 33.8 G/DL (32.0-36.0) Red Cell Distribution Width 12.7 % (11.6-14.8) Platelet Count 399 K/UL (150-450) Mean Platelet Volume 4.7 FL (6.5-10.1) L Neutrophils (%) (Auto) 83.6 % (45.0-75.0) H Lymphocytes (%) (Auto) 10.5 % (20.0-45.0) L Monocytes (%) (Auto) 3.8 % (1.0-10.0) Eosinophils (%) (Auto) 1.3 % (0.0-3.0) Basophils (%) (Auto) 0.8 % (0.0-2.0) Sodium Level 137 MMOL/L (136-145) Potassium Level 4.0 MMOL/L (3.5-5.1) Chloride Level 101 MMOL/L (98-107) Carbon Dioxide Level 28 MMOL/L (21-32) Anion Gap 8 mmol/L (5-15) Blood Urea Nitrogen 3 mg/dL (7-18) L Creatinine 0.5 MG/DL (0.55-1.30) L Estimat Glomerular Filtration Rate > 60 mL/min (>60) Glucose Level 77 MG/DL (74-106) Calcium Level 8.0 MG/DL (8.5-10.1) L Height (Feet): 5 Height (Inches): 9.00 Weight (Pounds): 147 General Appearance: WD/WN, no apparent distress, alert Cardiovascular: normal rate Respiratory/Chest: normal breath sounds, no respiratory distress Abdominal Exam: normal bowel sounds, non tender, soft, other - colostomy Extremities: normal range of motion, non-tender Samia Albarran N.P. Jul 26, 2017 11:34
--- NOTE | 2017-07-26 12:03 | Nephrology Progress Note ---
Assessment/Plan Problem List: (1) ARF (acute renal failure) (2) UTI (urinary tract infection) (3) Psychiatric disorder (4) Acute abdomen Assessment Status: WBCs wnl had multi abdominal drains acute renal failure- extended left colectomy due to perf transverse colostomy creation Plan Plan: per charles, 07/20/17 Mag and K supplement as needed DC horan DC IV PT advance diet Post op ( OP 07/08/17) Horan- 2D echo normal Ej Fx Albumin bollous monitor renal parameters K and Phos and Mag supplement as needed Subjective ROS Limited/Unobtainable: No Objective Objective Last 24 Hour Vital Signs Date Time Temp Pulse Resp B/P (MAP) Pulse Ox O2 Delivery O2 Flow Rate FiO2 07/26/17 08:28 97.9 94 20 116/80 93 97.9 07/26/17 08:00 14 07/26/17 04:00 98.9 104 20 112/70 91 Room Air 98.9 07/26/17 04:00 14 07/26/17 00:23 97.2 106 20 109/68 93 Room Air 97.2 07/26/17 00:00 16 07/25/17 19:39 16 07/25/17 19:34 98.2 95 20 118/79 99 Room Air 98.2 07/25/17 16:00 98.8 106 18 102/65 99 98.8 07/25/17 16:00 16 Intake and Output 07/25/17 07/26/17 19:00 07:00 Intake Total 655 ml Output Total 970 ml 895 ml Balance -315 ml -895 ml Intake Oral 240 ml IV Total 415 ml Output Urine Total 900 ml 850 ml Drainage Total 70 ml 45 ml Laboratory Tests 07/26/17 07:20: White Blood Count 10.8, Red Blood Count 3.18L, Hemoglobin 9.7L, Hematocrit 28.8L , Mean Corpuscular Volume 91, Mean Corpuscular Hemoglobin 30.7, Mean Corpuscular Hemoglobin Concent 33.8, Red Cell Distribution Width 12.7, Platelet Count 399, Mean Platelet Volume 4.7L, Neutrophils (%) (Auto) 83.6H, Lymphocytes (%) (Auto) 10.5L, Monocytes (%) (Auto) 3.8, Eosinophils (%) (Auto) 1.3, Basophils (%) (Auto) 0.8, Sodium Level 137, Potassium Level 4.0, Chloride Level 101, Carbon Dioxide Level 28, Anion Gap 8, Blood Urea Nitrogen 3L, Creatinine 0.5L, Estimat Glomerular Filtration Rate > 60, Glucose Level 77, Calcium Level 8.0L Height (Feet): 5 Height (Inches): 9.00 Weight (Pounds): 147 Objective no other change NOEMY MARK Jul 26, 2017 12:02
[2017-07-26 12:20] VITALS: BP 112/65
[2017-07-26] MEDS: Morphine Sulfate 4mg/ml Inj SUBQ PRN (13:00)
--- NOTE | 2017-07-26 14:54 | General Progress Note ---
Progress Note Progress Note For Dr. Michelle: Afebrile, eating, ambulates. Abdomen soft, colostomy functioning well, open wound is clean and starting to granulate ALIA drains output decreased (50cc total/24 hours) WBC normal 10,800 Platelets down 389,000 Imp: Improving Plan: q8h wound care bandages continue ALIA drains RALPH ALVARADO Jul 26, 2017 14:54
[2017-07-26 15:48] VITALS: BP 128/84
--- NOTE | 2017-07-26 16:33 | Infectious Diseases Prog Note ---
Assessment/Plan Assessment/Plan ASSESSMENT: The patient is a 46-year-old male with; Bowel perf w/ development of 2 Abscess (subphrenic and pelvic) Cx: E coli( ESBL) and ENTEROCOCCUS AVIUM (turcios S) and Bact Fragilis - Repeat CT with persistent LUQ fluid collection and 2 other fluid collections; former suspect still residual abscess; latter 2 possible sterile vs infected s/p second exp lap and abscess draiange -s/p exploratory laparotomy, abdominal washout, evacuation of abscess, drain placement and abdominal closure 07/20; cx p -s/p CT guided drainage APOLLO fluid collection 07/19: Aspiration and drainage of left upper quadrant collection, yielding 150 mL of carin pus. Note that the collection could only be partially evacuated, however, despite confirmation of apparent adequate position of the drain.This may indicate high viscosity of the contents; cx E. fecalis (turcios S), PREVOTELLA LOESCHEII ([place]umgentin, Clinda R; Metronidazole S) s/p ex lap with left colectomy and transverse colostomy for perforated left colon, evacuation of intrabd abscess, abd washout w/ drain placement 07/09 -CT abd/p w/ 07/18: Postsurgical changes, as described, status post transverse colectomy, Jazz procedure, and placement of multiple surgical drains. Left upper quadrant intraperitoneal fluid collection, despite the presence of a surgical drain in the center of the collection. The presence of gas bubbles within rather than floating nondependently in the collection indicate that this fluid may be viscous. 2 other significant intraperitoneal collections,which do not appear to communicate, possibly loculated. Given presence of somewhat thick enhancing rim surrounding all of these, infected collections are certainly possible ( left paracolic gutter 5.8 cmx 4.3 cm x 8.3cm and R paracolic gutter, medial and inferior to tip R hepatic lobe 8cm x 6.4cm x8cm). Other than the gas within the left upper quadrant collection, previously demonstrated pneumoperitoneum has largely resolved. Left upper quadrant thick walled small bowel loops. Possibly reactive due to adjacent inflammation, enteritis is also possible. No evidence of bowel obstruction. Gallbladder wall edema versus pericholecystic fluid. -OR findings: The omentum was significantly thickened and adhesed to the small bowel and into the left lower quadrant. There was significant inflammatory process throughout the abdomen including a thickening of almost the entire peritoneal lining. The proximal portion of the jejunum was significantly thickened and had a rind of inflammatory infectious tissue on it. left transverse and descending colon, there was significant amount of thickening and significant disease process with some areas of mild ischemia noted and in the descending colon around the descending and sigmoid junction, there was a gross perforation with grossspillage of bowel contents noted in the area. there was a fluid collection/pelvic abscess, which was evacuated. There was a fluid collection in the right upper quadrant around the liver, which was evacuated and a large left upper quadrant subphrenic abscess with significant tissue rind and thickening around the stomach, spleen, peritoneum, and diaphragm in that location. CT : Evidence of perforation of hollow viscus with extensive amount of free air in the upper abdomen and some free fluid is well. Fever/Leukocytosis, recurrent- improving- 2ry to above -Bcx NTD Elevated ALP -Abd US: Negative for gallstones. There is borderline gallbladder wall thickening, however. Most likely, this is reactive secondary to surrounding inflammation related to recent bowel perforation and surgery for such. However, the possibility of acalculous acute cholecystitis should be considered, and consideration for nuclear medicine hepatobiliary scanning if there is high clinical suspicion history of diarrhea, SP RAMSEY: Improved HTN COPD/asthma. Smoker. History of chronic constipation. Osteoarthritis. ? CAD/TN, hx PLAN: -Continue IV Meropenem abx d#16 and IV Ampicillin(abx d#10 for enterococcal coverage) for intraabdominal abscess -Continue Fluconazole #6 -Continue empiric PO linezolid #4 given recurrent of murky fluid for MRSA and nocardia coverage empirically -plan to treat for 2-4 weeks from 07/20 --07/21 Zosyn #4 --3/14 SP Ertapenem, PO Amoxicillin #3 --3/12 SP Cefepime #2 --3/8 SP Zosyn d# 6 --SP Rocephin d# 5 -Requested micro lab to add fungal, nocardia and AFB cx to latest cultures -f/u CT guided drainage and OR cx -surgery following -wound care -Trend WBC monitor chest x-ray. Nephrology, following Monitor ( Blood ) Cx Discussed with Pardeep. Subjective Allergies: Coded Allergies: No Known Allergies (Unverified , 01/20/17) Subjective afebrile leukocytosis resolved Objective Vital Signs Last 24 Hour Vital Signs Date Time Temp Pulse Resp B/P (MAP) Pulse Ox O2 Delivery O2 Flow Rate FiO2 07/26/17 15:48 98.0 89 20 128/84 99 98.0 07/26/17 12:20 97.7 89 20 112/65 100 97.7 07/26/17 12:00 17 07/26/17 08:28 97.9 94 20 116/80 93 97.9 07/26/17 08:00 14 07/26/17 04:00 98.9 104 20 112/70 91 Room Air 98.9 07/26/17 04:00 14 07/26/17 00:23 97.2 106 20 109/68 93 Room Air 97.2 07/26/17 00:00 16 07/25/17 19:39 16 07/25/17 19:34 98.2 95 20 118/79 99 Room Air 98.2 Height (Feet): 5 Height (Inches): 9.00 Weight (Pounds): 147 Objective General Appearance: WD/WN, no apparent distress, alert, thin Cardiovascular: normal rate Respiratory/Chest: normal breath sounds, no respiratory distress Abdominal Exam: normal bowel sounds, non tender, soft, other - colostomy Extremities: non-tender Laboratory Tests Test 07/26/17 07:20 White Blood Count 10.8 K/UL (4.8-10.8) Red Blood Count 3.18 M/UL (4.70-6.10) L Hemoglobin 9.7 G/DL (14.2-18.0) L Hematocrit 28.8 % (42.0-52.0) L Mean Corpuscular Volume 91 FL (80-99) Mean Corpuscular Hemoglobin 30.7 PG (27.0-31.0) Mean Corpuscular Hemoglobin Concent 33.8 G/DL (32.0-36.0) Red Cell Distribution Width 12.7 % (11.6-14.8) Platelet Count 399 K/UL (150-450) Mean Platelet Volume 4.7 FL (6.5-10.1) L Neutrophils (%) (Auto) 83.6 % (45.0-75.0) H Lymphocytes (%) (Auto) 10.5 % (20.0-45.0) L Monocytes (%) (Auto) 3.8 % (1.0-10.0) Eosinophils (%) (Auto) 1.3 % (0.0-3.0) Basophils (%) (Auto) 0.8 % (0.0-2.0) Sodium Level 137 MMOL/L (136-145) Potassium Level 4.0 MMOL/L (3.5-5.1) Chloride Level 101 MMOL/L (98-107) Carbon Dioxide Level 28 MMOL/L (21-32) Anion Gap 8 mmol/L (5-15) Blood Urea Nitrogen 3 mg/dL (7-18) L Creatinine 0.5 MG/DL (0.55-1.30) L Estimat Glomerular Filtration Rate > 60 mL/min (>60) Glucose Level 77 MG/DL (74-106) Calcium Level 8.0 MG/DL (8.5-10.1) L Current Medications Medications (Trade) Dose Ordered Sig/Kayy Route PRN Reason Start Time Stop Time Status Last Admin Dose Admin Acetaminophen (Tylenol) 650 mg Q6H PRN ORAL Mild Pain/Temp > 100.5 07/14/17 19:00 08/13/17 18:59 07/21/17 12:18 Ampicillin 2 gm/ Sodium Chloride 110 ml @ 220 mls/hr EVERY 6 HOURS IVPB 07/21/17 18:30 08/01/17 18:29 07/26/17 11:43 Calcium Carbonate (Tums) 1,000 mg Q4H PRN ORAL HEARTBURN/INDIGESTION 07/20/17 18:00 08/19/17 17:59 07/25/17 05:57 Dextrose (Dextrose 50%) STAT PRN IV Hypoglycemia 07/11/17 20:30 08/10/17 20:29 Diphenhydramine HCl (Benadryl) 25 mg Q6H PRN IVP Itching 07/25/17 17:00 08/24/17 16:59 07/26/17 09:53 Finasteride (Proscar) 5 mg DAILY ORAL 07/13/17 09:00 08/12/17 08:59 07/26/17 09:06 Fluconazole/ Sodium Chloride 100 ml @ 100 mls/hr Q24H IV 07/20/17 14:00 08/01/17 13:59 07/26/17 13:04 Heparin Sodium (Porcine) (Heparin 5000 units/ml) 5,000 units EVERY 12 HOURS SUBQ 07/11/17 21:00 08/02/17 08:59 07/26/17 09:08 Lansoprazole (Prevacid) 30 mg DAILY ORAL 07/12/17 09:00 08/11/17 08:59 07/26/17 09:06 Linezolid (Zyvox) 600 mg EVERY 12 HOURS ORAL 07/23/17 21:00 08/03/17 20:59 07/26/17 09:06 Meropenem 1 gm/ Sodium Chloride 55 ml @ 110 mls/hr Q8H IVPB 07/21/17 19:00 08/01/17 18:59 07/26/17 10:42 Morphine Sulfate 30 ml @ 0 mls/hr [employer] Protocol PRN IV For Pain 07/25/17 13:00 07/27/17 12:59 07/25/17 21:57 Morphine Sulfate (Morphine Sulfate) 2 mg Q2H PRN IV Moderate Breakthru Pain (5-7) 07/20/17 19:45 07/27/17 19:44 Morphine Sulfate (Morphine Sulfate) 4 mg Q3H PRN SUBQ Severe Breakthru Pain (>7) 07/20/17 19:44 07/27/17 19:43 07/26/17 13:00 Nitroglycerin (Ntg) 0.4 mg Q5MIN X 3 DOSES PRN SL Prn Chest Pain 07/11/17 20:32 08/09/17 20:31 Ondansetron HCl (Zofran) 4 mg Q6H PRN IVP Nausea & Vomiting 07/11/17 20:32 08/10/17 20:31 07/25/17 04:08 Potassium Chloride (K-Dur) 40 meq DAILY ORAL 07/20/17 09:00 08/19/17 08:59 07/26/17 09:07 Risperidone (RisperDAL) 4 mg BEDTIME ORAL 07/23/17 21:00 08/22/17 20:59 07/25/17 20:21 Sodium Chloride 1,000 ml @ 50 mls/hr Q20H IV 07/20/17 12:54 08/19/17 12:53 07/26/17 09:06 Temazepam (Restoril) 15 mg HSPRN PRN ORAL Insomnia 07/25/17 00:15 08/01/17 00:14 07/25/17 20:20 Chhaya Menendez M.D. Jul 26, 2017 16:32
[2017-07-26 20:00] VITALS: BP 121/74
[2017-07-26] MEDS: Morphine Sulfate 2mg/ml Inj IV PRN (20:48)
[2017-07-26] MEDS: PCA Morphine 1mg/ml 30 ML IV PRN (20:54)
--- NOTE | 2017-07-26 21:48 | General Progress Note ---
Assessment/Plan Assessment/Plan Schizophrenia CPT Encephalopathy PLAN: - increase the risperidone to 4 mg at bedtime. Subjective Date patient seen: Jul 26, 2017 Allergies: Coded Allergies: No Known Allergies (Unverified , 01/20/17) Subjective the pt is calmer more organized. Objective Last 24 Hour Vital Signs Date Time Temp Pulse Resp B/P (MAP) Pulse Ox O2 Delivery O2 Flow Rate FiO2 07/26/17 20:54 98.0 07/26/17 20:48 98.0 07/26/17 20:02 97 Nasal Cannula 2.0 28 07/26/17 20:02 Nasal Cannula 2.0 28 07/26/17 16:00 18 07/26/17 15:48 98.0 89 20 128/84 99 98.0 07/26/17 12:20 97.7 89 20 112/65 100 97.7 07/26/17 12:00 17 07/26/17 08:28 97.9 94 20 116/80 93 97.9 07/26/17 08:00 14 07/26/17 04:00 98.9 104 20 112/70 91 Room Air 98.9 07/26/17 04:00 14 07/26/17 00:23 97.2 106 20 109/68 93 Room Air 97.2 07/26/17 00:00 16 Intake and Output 07/25/17 07/26/17 19:00 07:00 Intake Total 655 ml Output Total 970 ml 895 ml Balance -315 ml -895 ml Intake Oral 240 ml IV Total 415 ml Output Urine Total 900 ml 850 ml Drainage Total 70 ml 45 ml Laboratory Tests 07/26/17 07:20: White Blood Count 10.8, Red Blood Count 3.18L, Hemoglobin 9.7L, Hematocrit 28.8L , Mean Corpuscular Volume 91, Mean Corpuscular Hemoglobin 30.7, Mean Corpuscular Hemoglobin Concent 33.8, Red Cell Distribution Width 12.7, Platelet Count 399, Mean Platelet Volume 4.7L, Neutrophils (%) (Auto) 83.6H, Lymphocytes (%) (Auto) 10.5L, Monocytes (%) (Auto) 3.8, Eosinophils (%) (Auto) 1.3, Basophils (%) (Auto) 0.8, Sodium Level 137, Potassium Level 4.0, Chloride Level 101, Carbon Dioxide Level 28, Anion Gap 8, Blood Urea Nitrogen 3L, Creatinine 0.5L, Estimat Glomerular Filtration Rate > 60, Glucose Level 77, Calcium Level 8.0L Height (Feet): 5 Height (Inches): 9.00 Weight (Pounds): 147 Idalia Montanez M.D. Jul 26, 2017 21:48
--- NOTE | 2017-07-26 22:30 | Pulmonology Progress Note ---
Assessment/Plan Problems: (1) Perforated abdominal viscus (2) ARF (acute renal failure) (3) Psychosis (4) Acute constipation (5) Amphetamine abuse Assessment/Plan symptomatic treamtment f/u wbc and clinically d/w surgeon iv fluids continue anbx pain management med/surg check electrolytes Subjective ROS Limited/Unobtainable: No Constitutional: Reports: no symptoms HEENT: Repors: no symptoms Respiratory: Reports: no symptoms Allergies: Coded Allergies: No Known Allergies (Unverified , 01/20/17) Objective Last 24 Hour Vital Signs Date Time Temp Pulse Resp B/P (MAP) Pulse Ox O2 Delivery O2 Flow Rate FiO2 07/26/17 21:18 98.0 07/26/17 21:18 98.0 07/26/17 20:54 98.0 07/26/17 20:48 98.0 07/26/17 20:02 97 Nasal Cannula 2.0 28 07/26/17 20:02 Nasal Cannula 2.0 28 07/26/17 20:00 18 07/26/17 20:00 98.2 96 19 121/74 94 98.2 07/26/17 16:00 18 07/26/17 15:48 98.0 89 20 128/84 99 98.0 07/26/17 12:20 97.7 89 20 112/65 100 97.7 07/26/17 12:00 17 07/26/17 08:28 97.9 94 20 116/80 93 97.9 07/26/17 08:00 14 07/26/17 04:00 98.9 104 20 112/70 91 Room Air 98.9 07/26/17 04:00 14 07/26/17 00:23 97.2 106 20 109/68 93 Room Air 97.2 07/26/17 00:00 16 Intake and Output 07/25/17 07/26/17 19:00 07:00 Intake Total 655 ml Output Total 970 ml 895 ml Balance -315 ml -895 ml Intake Oral 240 ml IV Total 415 ml Output Urine Total 900 ml 850 ml Drainage Total 70 ml 45 ml Objective General Appearance: WD/WN Lines, tubes and drains: peripheral HEENT: normocephalic, atraumatic Neck: non-tender, normal alignment Respiratory/Chest: chest wall non-tender, lungs clear Breasts: no masses Cardiovascular/Chest: normal peripheral pulses, normal rate Abdomen: normal bowel sounds, clean dressing Genitourinary/Rectal: normal genital exam, heme negative stool Extremities: normal range of motion, non-tender Skin Exam: normal pigmentation Laboratory Tests 07/26/17 07:20: White Blood Count 10.8, Red Blood Count 3.18L, Hemoglobin 9.7L, Hematocrit 28.8L , Mean Corpuscular Volume 91, Mean Corpuscular Hemoglobin 30.7, Mean Corpuscular Hemoglobin Concent 33.8, Red Cell Distribution Width 12.7, Platelet Count 399, Mean Platelet Volume 4.7L, Neutrophils (%) (Auto) 83.6H, Lymphocytes (%) (Auto) 10.5L, Monocytes (%) (Auto) 3.8, Eosinophils (%) (Auto) 1.3, Basophils (%) (Auto) 0.8, Sodium Level 137, Potassium Level 4.0, Chloride Level 101, Carbon Dioxide Level 28, Anion Gap 8, Blood Urea Nitrogen 3L, Creatinine 0.5L, Estimat Glomerular Filtration Rate > 60, Glucose Level 77, Calcium Level 8.0L Current Medications Medications (Trade) Dose Ordered Sig/Kayy Route PRN Reason Start Time Stop Time Status Last Admin Dose Admin Acetaminophen (Tylenol) 650 mg Q6H PRN ORAL Mild Pain/Temp > 100.5 07/14/17 19:00 08/13/17 18:59 07/21/17 12:18 Ampicillin 2 gm/ Sodium Chloride 110 ml @ 220 mls/hr EVERY 6 HOURS IVPB 07/21/17 18:30 08/01/17 18:29 07/26/17 17:19 Calcium Carbonate (Tums) 1,000 mg Q4H PRN ORAL HEARTBURN/INDIGESTION 07/20/17 18:00 08/19/17 17:59 07/25/17 05:57 Dextrose (Dextrose 50%) STAT PRN IV Hypoglycemia 07/11/17 20:30 08/10/17 20:29 Diphenhydramine HCl (Benadryl) 25 mg Q6H PRN IVP Itching 07/25/17 17:00 08/24/17 16:59 07/26/17 09:53 Finasteride (Proscar) 5 mg DAILY ORAL 07/13/17 09:00 08/12/17 08:59 07/26/17 09:06 Fluconazole/ Sodium Chloride 100 ml @ 100 mls/hr Q24H IV 07/20/17 14:00 08/01/17 13:59 07/26/17 13:04 Heparin Sodium (Porcine) (Heparin 5000 units/ml) 5,000 units EVERY 12 HOURS SUBQ 07/11/17 21:00 08/02/17 08:59 07/26/17 20:52 Lansoprazole (Prevacid) 30 mg DAILY ORAL 07/12/17 09:00 08/11/17 08:59 07/26/17 09:06 Linezolid (Zyvox) 600 mg EVERY 12 HOURS ORAL 07/23/17 21:00 08/03/17 20:59 07/26/17 20:47 Meropenem 1 gm/ Sodium Chloride 55 ml @ 110 mls/hr Q8H IVPB 07/21/17 19:00 08/01/17 18:59 07/26/17 18:08 Morphine Sulfate 30 ml @ 0 mls/hr [employer] Protocol PRN IV For Pain 07/25/17 13:00 07/27/17 12:59 07/26/17 20:54 Morphine Sulfate (Morphine Sulfate) 2 mg Q2H PRN IV Moderate Breakthru Pain (5-7) 07/20/17 19:45 07/27/17 19:44 07/26/17 20:48 Morphine Sulfate (Morphine Sulfate) 4 mg Q3H PRN SUBQ Severe Breakthru Pain (>7) 07/20/17 19:44 07/27/17 19:43 07/26/17 13:00 Nitroglycerin (Ntg) 0.4 mg Q5MIN X 3 DOSES PRN SL Prn Chest Pain 07/11/17 20:32 08/09/17 20:31 Ondansetron HCl (Zofran) 4 mg Q6H PRN IVP Nausea & Vomiting 07/11/17 20:32 08/10/17 20:31 07/25/17 04:08 Potassium Chloride (K-Dur) 40 meq DAILY ORAL 07/20/17 09:00 08/19/17 08:59 07/26/17 09:07 Risperidone (RisperDAL) 4 mg BEDTIME ORAL 07/23/17 21:00 08/22/17 20:59 07/26/17 20:47 Sodium Chloride 1,000 ml @ 50 mls/hr Q20H IV 07/20/17 12:54 08/19/17 12:53 07/26/17 09:06 Temazepam (Restoril) 15 mg HSPRN PRN ORAL Insomnia 07/25/17 00:15 08/01/17 00:14 07/25/17 20:20 Brenda Martel MD Jul 26, 2017 22:30
[2017-07-27] VITALS: BP 117/74
[2017-07-27] MEDS ORDERED: Rate Change PCA 1 Each MISC PRN (00:30)
[2017-07-27] MEDS ORDERED: Naloxone 0.4mg/ml Inj IVP PRN (00:30)
[2017-07-27] MEDS: Meropenem 1 GM in NS 55 ML IVPB SCH ×3 (02:33→19:38)
[2017-07-27 04:07] VITALS: BP 120/69
[2017-07-27] MEDS: Ampicillin 2 GM in NS 110 ML IVPB SCH ×4 (05:24→23:55)
[2017-07-27] MEDS: PCA shift volume MISC SCH ×2 (07:14→19:00)
[2017-07-27] MEDS: Morphine Sulfate 2mg/ml Inj IV PRN (07:37)
--- NOTE | 2017-07-27 07:44 | Pulmonology Progress Note ---
Assessment/Plan Assessment/Plan ASSESSMENT perforation of viscus pneumoperitoneum pleuritic chest pain ( likely due to perforated viscus) perforated left colon with prolonged inflammatory reaction, gross spillage, and bowel ischemia. Intra-abdominal abscess. s/p 3 Exploratory laparotomy, extended left colectomy, transverse colostomy creation, evacuation of intra-abdominal abscess, abdominal washout with drain placement. s/p 07/19 aspiration and drainage of intraperitoneal fluid collection by IR- 150cc Large complex intra-abdominal abscess Midline wound dehiscence. s/p 07/20 Exploratory laparotomy with evacuation of intra-abdominal abscess with debridement of necrotic infected tissues. abdominal washout and drain placement ARF -resolved hyperkalemia-resolved rhabdo-resolved acute on chronic constipation ? 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 IS while in the bed and encourage to use, O2 HHN prn OOB as tolerated with PT/OT wound care DVT GI prophylaxis colostomy care GI follows ARF resolved, monitor renal parameters, lytes, correct as needed, avoid nephrotoxic nephro follows psychologist counseling on abstinence from street drugs psychologist counseling on abstinence from smoking declined nicotine patch psych follows psych meds as per psych recs initially: troponin x 2 negative, no acute ischemic changes on ECF/tele , thus no evidence of acute [place] cardio eval appreciated O2 HHN prn Venous Duplex BLE stat CTA chest done 07/08 with evidence perforation of hollow viscus with extensive amount of free air in the upper abdomen and some free fluid is well.; no evidence of PE inial surgery 07/09 ECHO with pEF case discussed and evaluated by supervising physician Subjective Allergies: Coded Allergies: No Known Allergies (Unverified , 01/20/17) Subjective Objective Last 24 Hour Vital Signs Date Time Temp Pulse Resp B/P (MAP) Pulse Ox O2 Delivery O2 Flow Rate FiO2 07/27/17 04:07 98.1 105 20 120/69 96 Room Air 98.1 07/27/17 04:00 14 07/27/17 00:00 12 07/27/17 00:00 97.8 95 18 117/74 96 97.8 07/26/17 21:18 98.0 07/26/17 21:18 98.0 07/26/17 20:54 98.0 07/26/17 20:48 98.0 07/26/17 20:02 97 Nasal Cannula 2.0 28 07/26/17 20:02 Nasal Cannula 2.0 28 07/26/17 20:00 98.2 96 19 121/74 94 98.2 07/26/17 20:00 14 07/26/17 16:00 18 07/26/17 15:48 98.0 89 20 128/84 99 98.0 07/26/17 12:20 97.7 89 20 112/65 100 97.7 07/26/17 12:00 17 07/26/17 08:28 97.9 94 20 116/80 93 97.9 07/26/17 08:00 14 Intake and Output 07/26/17 07/27/17 19:00 07:00 Intake Total 1545 ml 1470 ml Output Total 600 ml 930 ml Balance 945 ml 540 ml Intake Oral 720 ml 800 ml IV Total 825 ml 670 ml Output Urine Total 600 ml 890 ml Drainage Total 40 ml Objective Abdomen: other - colostomy, 2 drain wuth serosanguinous drainage Current Medications Medications (Trade) Dose Ordered Sig/Kayy Route PRN Reason Start Time Stop Time Status Last Admin Dose Admin Acetaminophen (Tylenol) 650 mg Q6H PRN ORAL Mild Pain/Temp > 100.5 07/14/17 19:00 08/13/17 18:59 07/21/17 12:18 Ampicillin 2 gm/ Sodium Chloride 110 ml @ 220 mls/hr EVERY 6 HOURS IVPB 07/21/17 18:30 08/01/17 18:29 07/27/17 05:24 Calcium Carbonate (Tums) 1,000 mg Q4H PRN ORAL HEARTBURN/INDIGESTION 07/20/17 18:00 08/19/17 17:59 07/25/17 05:57 Dextrose (Dextrose 50%) STAT PRN IV Hypoglycemia 07/11/17 20:30 08/10/17 20:29 Diphenhydramine HCl (Benadryl) 25 mg Q6H PRN IVP Itching 07/25/17 17:00 08/24/17 16:59 07/26/17 09:53 Finasteride (Proscar) 5 mg DAILY ORAL 07/13/17 09:00 08/12/17 08:59 07/26/17 09:06 Fluconazole/ Sodium Chloride 100 ml @ 100 mls/hr Q24H IV 07/20/17 14:00 08/01/17 13:59 07/26/17 13:04 Heparin Sodium (Porcine) (Heparin 5000 units/ml) 5,000 units EVERY 12 HOURS SUBQ 07/11/17 21:00 08/02/17 08:59 07/26/17 20:52 Lansoprazole (Prevacid) 30 mg DAILY ORAL 07/12/17 09:00 08/11/17 08:59 07/26/17 09:06 Linezolid (Zyvox) 600 mg EVERY 12 HOURS ORAL 07/23/17 21:00 08/03/17 20:59 07/26/17 20:47 Meropenem 1 gm/ Sodium Chloride 55 ml @ 110 mls/hr Q8H IVPB 07/21/17 19:00 08/01/17 18:59 07/27/17 02:33 Miscellaneous Medication (YARD SWITCHER Rate Change) 1 ea DAILY PRN MISC rate change 07/27/17 00:30 07/29/17 00:29 Miscellaneous Medication (YARD SWITCHER shift volume) 1 ea Q12HR@0700,1900 MISC 07/27/17 07:00 07/29/17 06:59 07/27/17 07:14 Morphine Sulfate 30 ml @ 0 mls/hr YARD SWITCHER Protocol PRN IV For Pain 07/25/17 13:00 07/27/17 12:59 07/26/17 20:54 Morphine Sulfate (Morphine Sulfate) 2 mg Q2H PRN IV Moderate Breakthru Pain (5-7) 07/20/17 19:45 07/27/17 19:44 07/26/17 20:48 Morphine Sulfate (Morphine Sulfate) 4 mg Q3H PRN SUBQ Severe Breakthru Pain (>7) 07/20/17 19:44 07/27/17 19:43 07/26/17 13:00 Naloxone HCl (Narcan) 0.1 mg Q1M PRN IVP RR<10/min OR SBP<90 mmHg 07/27/17 00:30 07/29/17 00:29 Nitroglycerin (Ntg) 0.4 mg Q5MIN X 3 DOSES PRN SL Prn Chest Pain 07/11/17 20:32 08/09/17 20:31 Ondansetron HCl (Zofran) 4 mg Q6H PRN IVP Nausea & Vomiting 07/11/17 20:32 08/10/17 20:31 07/27/17 02:36 Potassium Chloride (K-Dur) 40 meq DAILY ORAL 07/20/17 09:00 08/19/17 08:59 07/26/17 09:07 Risperidone (RisperDAL) 4 mg BEDTIME ORAL 07/23/17 21:00 08/22/17 20:59 07/26/17 20:47 Sodium Chloride 1,000 ml @ 50 mls/hr Q20H IV 07/20/17 12:54 08/19/17 12:53 07/27/17 05:04 Temazepam (Restoril) 15 mg HSPRN PRN ORAL Insomnia 07/25/17 00:15 08/01/17 00:14 07/25/17 20:20 Clay ([facility])Gabbi NP Jul 27, 2017 07:44
[2017-07-27 08:00] VITALS: BP 110/73
[2017-07-27 09:55] LABS: BASOPHILS % (AUTO) 0.9 % (0.0-2.0); HEMATOCRIT 30.3 % (42.0-52.0); HEMOGLOBIN 10.1 G/DL (14.2-18.0); LYMPHOCYTES % (AUTO) 10.3 % (20.0-45.0); MEAN CORPUSCULAR VOLUME 90 FL (80-99); MONOCYTES % (AUTO) 5.3 % (1.0-10.0); NEUTROPHILS % (AUTO) 82.5 % (45.0-75.0); PLATELET COUNT 443 K/UL (150-450); RED BLOOD COUNT 3.35 M/UL (4.70-6.10); RED CELL DISTRIBUTION WIDTH 12.6 % (11.6-14.8); WHITE BLOOD COUNT 11.3 K/UL (4.8-10.8)
[2017-07-27] MEDS: Heparin 5000 units/ml inj SUBQ SCH ×2 (10:01→21:47)
[2017-07-27 10:36] LABS: ANION GAP 6 mmol/L (5-15); BLOOD UREA NITROGEN 4 mg/dL (7-18); CALCIUM 7.9 MG/DL (8.5-10.1); CARBON DIOXIDE 32 MMOL/L (21-32); CHLORIDE 96 MMOL/L (98-107); CREATININE 0.6 MG/DL (0.55-1.30); POTASSIUM 4.1 MMOL/L (3.5-5.1); SODIUM 134 MMOL/L (136-145)
--- NOTE | 2017-07-27 11:36 | GI Progress Note ---
Assessment/Plan Problems: (1) Psychiatric disorder ICD Codes: F99 - Mental disorder, not otherwise specified SNOMED: 25909658, 318459059 (2) Amphetamine abuse ICD Codes: F15.10 - Other stimulant abuse, uncomplicated SNOMED: 33248654 (3) Opiate dependence ICD Codes: F11.20 - Opioid dependence, uncomplicated SNOMED: 75894099 Qualifiers: Qualified Codes: F11.20 - Opioid dependence, uncomplicated (4) Perforated abdominal viscus SNOMED: 389497286 Status: stable Status Narrative Discussed with Dr. Castro. Assessment/Plan s/p Exploratory laparotomy, partial bowel resection fu surgical recs IVFs diet adv per surgery colostomy care prn transfusions serial imaging prn pain mgmt fu labs Subjective Subjective doing well pain Objective Last 24 Hour Vital Signs Date Time Temp Pulse Resp B/P (MAP) Pulse Ox O2 Delivery O2 Flow Rate FiO2 07/27/17 08:00 98.1 98 18 110/73 95 98.1 07/27/17 08:00 16 07/27/17 04:07 98.1 105 20 120/69 96 Room Air 98.1 07/27/17 04:00 14 07/27/17 00:00 12 07/27/17 00:00 97.8 95 18 117/74 96 97.8 07/26/17 21:18 98.0 07/26/17 21:18 98.0 07/26/17 20:54 98.0 07/26/17 20:48 98.0 07/26/17 20:02 97 Nasal Cannula 2.0 28 07/26/17 20:02 Nasal Cannula 2.0 28 07/26/17 20:00 98.2 96 19 121/74 94 98.2 07/26/17 20:00 14 07/26/17 16:00 18 07/26/17 15:48 98.0 89 20 128/84 99 98.0 07/26/17 12:20 97.7 89 20 112/65 100 97.7 07/26/17 12:00 17 Intake and Output 07/26/17 07/27/17 19:00 07:00 Intake Total 1545 ml 1470 ml Output Total 600 ml 930 ml Balance 945 ml 540 ml Intake Oral 720 ml 800 ml IV Total 825 ml 670 ml Output Urine Total 600 ml 890 ml Drainage Total 40 ml Laboratory Tests Test 3/23/18 09:25 White Blood Count 11.3 K/UL (4.8-10.8) H Red Blood Count 3.35 M/UL (4.70-6.10) L Hemoglobin 10.1 G/DL (14.2-18.0) L Hematocrit 30.3 % (42.0-52.0) L Mean Corpuscular Volume 90 FL (80-99) Mean Corpuscular Hemoglobin 30.2 PG (27.0-31.0) Mean Corpuscular Hemoglobin Concent 33.5 G/DL (32.0-36.0) Red Cell Distribution Width 12.6 % (11.6-14.8) Platelet Count 443 K/UL (150-450) Mean Platelet Volume 4.9 FL (6.5-10.1) L Neutrophils (%) (Auto) 82.5 % (45.0-75.0) H Lymphocytes (%) (Auto) 10.3 % (20.0-45.0) L Monocytes (%) (Auto) 5.3 % (1.0-10.0) Eosinophils (%) (Auto) 1.0 % (0.0-3.0) Basophils (%) (Auto) 0.9 % (0.0-2.0) Sodium Level 134 MMOL/L (136-145) L Potassium Level 4.1 MMOL/L (3.5-5.1) Chloride Level 96 MMOL/L (98-107) L Carbon Dioxide Level 32 MMOL/L (21-32) Anion Gap 6 mmol/L (5-15) Blood Urea Nitrogen 4 mg/dL (7-18) L Creatinine 0.6 MG/DL (0.55-1.30) Estimat Glomerular Filtration Rate > 60 mL/min (>60) Glucose Level 90 MG/DL (74-106) Calcium Level 7.9 MG/DL (8.5-10.1) L Height (Feet): 5 Height (Inches): 9.00 Weight (Pounds): 145 General Appearance: WD/WN, no apparent distress, alert, thin Cardiovascular: normal rate Respiratory/Chest: normal breath sounds, no respiratory distress Abdominal Exam: normal bowel sounds, non tender, soft, incision site Extremities: normal range of motion, non-tender Albarran,Samia Xavier N.P. Jul 27, 2017 11:36
[2017-07-27] MEDS: PCA Morphine 1mg/ml 30 ML IV PRN ×2 (11:55→12:03)
[2017-07-27 12:00] VITALS: BP 121/75
--- NOTE | 2017-07-27 13:11 | General Progress Note ---
Progress Note Progress Note AVSS Not eating well - intermittent nausea. Abdomen soft, wound clean Will order ensure (strawberry) with each meal to enhance nutrition Continue wound care RALPH ALVARADO Jul 27, 2017 13:11
--- NOTE | 2017-07-27 14:56 | General Progress Note ---
Assessment/Plan Assessment/Plan Schizophrenia CPT Encephalopathy PLAN: - increase the risperidone to 4 mg at bedtime. Subjective Date patient seen: Jul 27, 2017 Allergies: Coded Allergies: No Known Allergies (Unverified , 01/20/17) Subjective the pt is calmer more organized. Objective Last 24 Hour Vital Signs Date Time Temp Pulse Resp B/P (MAP) Pulse Ox O2 Delivery O2 Flow Rate FiO2 07/27/17 12:00 16 07/27/17 12:00 97.1 113 19 121/75 97 97.1 07/27/17 08:00 98.1 98 18 110/73 95 98.1 07/27/17 08:00 16 07/27/17 04:07 98.1 105 20 120/69 96 Room Air 98.1 07/27/17 04:00 14 07/27/17 00:00 12 07/27/17 00:00 97.8 95 18 117/74 96 97.8 07/26/17 21:18 98.0 07/26/17 21:18 98.0 07/26/17 20:54 98.0 07/26/17 20:48 98.0 07/26/17 20:02 97 Nasal Cannula 2.0 28 07/26/17 20:02 Nasal Cannula 2.0 28 07/26/17 20:00 98.2 96 19 121/74 94 98.2 07/26/17 20:00 14 07/26/17 16:00 18 07/26/17 15:48 98.0 89 20 128/84 99 98.0 Intake and Output 07/26/17 07/27/17 19:00 07:00 Intake Total 1545 ml 1470 ml Output Total 600 ml 930 ml Balance 945 ml 540 ml Intake Oral 720 ml 800 ml IV Total 825 ml 670 ml Output Urine Total 600 ml 890 ml Drainage Total 40 ml Laboratory Tests 07/27/17 09:25: White Blood Count 11.3H, Red Blood Count 3.35L, Hemoglobin 10.1L, Hematocrit 30.3L, Mean Corpuscular Volume 90, Mean Corpuscular Hemoglobin 30.2, Mean Corpuscular Hemoglobin Concent 33.5, Red Cell Distribution Width 12.6, Platelet Count 443, Mean Platelet Volume 4.9L, Neutrophils (%) (Auto) 82.5H, Lymphocytes (%) (Auto) 10.3L, Monocytes (%) (Auto) 5.3, Eosinophils (%) (Auto) 1.0, Basophils (%) (Auto) 0.9, Sodium Level 134L, Potassium Level 4.1, Chloride Level 96L, Carbon Dioxide Level 32, Anion Gap 6, Blood Urea Nitrogen 4L, Creatinine 0.6, Estimat Glomerular Filtration Rate > 60, Glucose Level 90, Calcium Level 7.9L Height (Feet): 5 Height (Inches): 9.00 Weight (Pounds): 145 Idalia Montanez M.D. Jul 27, 2017 14:56
--- NOTE | 2017-07-27 15:16 | Nephrology Progress Note ---
Assessment/Plan Problem List: (1) ARF (acute renal failure) (2) UTI (urinary tract infection) (3) Psychiatric disorder (4) Acute abdomen Assessment Status: WBCs wnl had multi abdominal drains acute renal failure- extended left colectomy due to perf transverse colostomy creation Plan Plan: per charles, 07/20/17 Mag and K supplement as needed DC horan DC IV PT advance diet Post op ( OP 07/08/17) Horan- 2D echo normal Ej Fx Albumin bollous monitor renal parameters K and Phos and Mag supplement as needed Subjective ROS Limited/Unobtainable: No Objective Objective Last 24 Hour Vital Signs Date Time Temp Pulse Resp B/P (MAP) Pulse Ox O2 Delivery O2 Flow Rate FiO2 07/27/17 12:00 16 07/27/17 12:00 97.1 113 19 121/75 97 97.1 07/27/17 08:00 98.1 98 18 110/73 95 98.1 07/27/17 08:00 16 07/27/17 04:07 98.1 105 20 120/69 96 Room Air 98.1 07/27/17 04:00 14 07/27/17 00:00 12 07/27/17 00:00 97.8 95 18 117/74 96 97.8 07/26/17 21:18 98.0 07/26/17 21:18 98.0 07/26/17 20:54 98.0 07/26/17 20:48 98.0 07/26/17 20:02 97 Nasal Cannula 2.0 28 07/26/17 20:02 Nasal Cannula 2.0 28 07/26/17 20:00 98.2 96 19 121/74 94 98.2 07/26/17 20:00 14 07/26/17 16:00 18 07/26/17 15:48 98.0 89 20 128/84 99 98.0 Intake and Output 07/26/17 07/27/17 19:00 07:00 Intake Total 1545 ml 1470 ml Output Total 600 ml 930 ml Balance 945 ml 540 ml Intake Oral 720 ml 800 ml IV Total 825 ml 670 ml Output Urine Total 600 ml 890 ml Drainage Total 40 ml Laboratory Tests 07/27/17 09:25: White Blood Count 11.3H, Red Blood Count 3.35L, Hemoglobin 10.1L, Hematocrit 30.3L, Mean Corpuscular Volume 90, Mean Corpuscular Hemoglobin 30.2, Mean Corpuscular Hemoglobin Concent 33.5, Red Cell Distribution Width 12.6, Platelet Count 443, Mean Platelet Volume 4.9L, Neutrophils (%) (Auto) 82.5H, Lymphocytes (%) (Auto) 10.3L, Monocytes (%) (Auto) 5.3, Eosinophils (%) (Auto) 1.0, Basophils (%) (Auto) 0.9, Sodium Level 134L, Potassium Level 4.1, Chloride Level 96L, Carbon Dioxide Level 32, Anion Gap 6, Blood Urea Nitrogen 4L, Creatinine 0.6, Estimat Glomerular Filtration Rate > 60, Glucose Level 90, Calcium Level 7.9L Height (Feet): 5 Height (Inches): 9.00 Weight (Pounds): 145 General Appearance: no apparent distress Objective no other change NOEMY MARK Jul 27, 2017 15:16
[2017-07-27 16:00] VITALS: BP 125/84
--- NOTE | 2017-07-27 16:06 | Pulmonology Progress Note ---
Assessment/Plan Assessment/Plan ASSESSMENT perforation of viscus pneumoperitoneum pleuritic chest pain ( likely due to perforated viscus) perforated left colon with prolonged inflammatory reaction, gross spillage, and bowel ischemia. Intra-abdominal abscess. s/p 07/08 Exploratory laparotomy, extended left colectomy, transverse colostomy creation, evacuation of intra-abdominal abscess, abdominal washout with drain placement. s/p 07/19 aspiration and drainage of intraperitoneal fluid collection by IR- 150cc Large complex intra-abdominal abscess Midline wound dehiscence. s/p 07/20 Exploratory laparotomy with evacuation of intra-abdominal abscess with debridement of necrotic infected tissues. abdominal washout and drain placement ARF -resolved hyperkalemia-resolved rhabdo-resolved acute on chronic constipation ? 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 IS while in the bed and encourage to use, O2 HHN prn OOB as tolerated with PT/OT wound care DVT GI prophylaxis colostomy care GI follows ARF resolved, monitor renal parameters, lytes, correct as needed, avoid nephrotoxic nephro follows insurance counsel on abstinence from street drugs insurance counsel on abstinence from smoking declined nicotine patch psych follows psych meds as per psych recs initially: troponin x 2 negative, no acute ischemic changes on ECF/tele , thus no evidence of acute [place] cardio eval appreciated O2 HHN prn Venous Duplex BLE stat CTA chest done 07/08 with evidence perforation of hollow viscus with extensive amount of free air in the upper abdomen and some free fluid is well.; no evidence of PE inial surgery 07/09 ECHO with pEF case discussed and evaluated by supervising physician Subjective Allergies: Coded Allergies: No Known Allergies (Unverified , 01/20/17) Subjective pain controlled with SEED LABORATORY ASSISTANT did not eat breakfast mild leucocytosis, afebrile Objective Last 24 Hour Vital Signs Date Time Temp Pulse Resp B/P (MAP) Pulse Ox O2 Delivery O2 Flow Rate FiO2 07/27/17 12:00 16 07/27/17 12:00 97.1 113 19 121/75 97 97.1 07/27/17 08:00 98.1 98 18 110/73 95 98.1 07/27/17 08:00 16 07/27/17 04:07 98.1 105 20 120/69 96 Room Air 98.1 07/27/17 04:00 14 07/27/17 00:00 12 07/27/17 00:00 97.8 95 18 117/74 96 97.8 07/26/17 21:18 98.0 07/26/17 21:18 98.0 07/26/17 20:54 98.0 07/26/17 20:48 98.0 07/26/17 20:02 97 Nasal Cannula 2.0 28 07/26/17 20:02 Nasal Cannula 2.0 28 07/26/17 20:00 98.2 96 19 121/74 94 98.2 07/26/17 20:00 14 Intake and Output 07/26/17 07/27/17 19:00 07:00 Intake Total 1545 ml 1470 ml Output Total 600 ml 930 ml Balance 945 ml 540 ml Intake Oral 720 ml 800 ml IV Total 825 ml 670 ml Output Urine Total 600 ml 890 ml Drainage Total 40 ml Objective General Appearance: no acute distress, other - A/A/O x 3 male HEENT: normocephalic, atraumatic, anicteric Respiratory/Chest: lungs clear, no respiratory distress Cardiovascular: normal rate, no JVD Abdomen: normal bowel sounds, other - Colostomy with stool, 2 ALIA drains with serosanguinous drainage, dressign C/D/I Extremities: no edema, pedal pulses normal Neurologic/Psychiatric: alert, oriented x 3, responsive Musculoskeletal: normal muscle bulk Laboratory Tests 07/27/17 09:25: White Blood Count 11.3H, Red Blood Count 3.35L, Hemoglobin 10.1L, Hematocrit 30.3L, Mean Corpuscular Volume 90, Mean Corpuscular Hemoglobin 30.2, Mean Corpuscular Hemoglobin Concent 33.5, Red Cell Distribution Width 12.6, Platelet Count 443, Mean Platelet Volume 4.9L, Neutrophils (%) (Auto) 82.5H, Lymphocytes (%) (Auto) 10.3L, Monocytes (%) (Auto) 5.3, Eosinophils (%) (Auto) 1.0, Basophils (%) (Auto) 0.9, Sodium Level 134L, Potassium Level 4.1, Chloride Level 96L, Carbon Dioxide Level 32, Anion Gap 6, Blood Urea Nitrogen 4L, Creatinine 0.6, Estimat Glomerular Filtration Rate > 60, Glucose Level 90, Calcium Level 7.9L Current Medications Medications (Trade) Dose Ordered Sig/Kayy Route PRN Reason Start Time Stop Time Status Last Admin Dose Admin Acetaminophen (Tylenol) 650 mg Q6H PRN ORAL Mild Pain/Temp > 100.5 07/14/17 19:00 08/13/17 18:59 07/21/17 12:18 Ampicillin 2 gm/ Sodium Chloride 110 ml @ 220 mls/hr EVERY 6 HOURS IVPB 07/21/17 18:30 08/01/17 18:29 07/27/17 13:36 Calcium Carbonate (Tums) 1,000 mg Q4H PRN ORAL HEARTBURN/INDIGESTION 07/20/17 18:00 08/19/17 17:59 07/25/17 05:57 Dextrose (Dextrose 50%) STAT PRN IV Hypoglycemia 07/11/17 20:30 08/10/17 20:29 Diphenhydramine HCl (Benadryl) 25 mg Q6H PRN IVP Itching 07/25/17 17:00 08/24/17 16:59 07/26/17 09:53 Finasteride (Proscar) 5 mg DAILY ORAL 07/13/17 09:00 08/12/17 08:59 07/27/17 09:59 Fluconazole/ Sodium Chloride 100 ml @ 100 mls/hr Q24H IV 07/20/17 14:00 08/01/17 13:59 07/27/17 15:03 Heparin Sodium (Porcine) (Heparin 5000 units/ml) 5,000 units EVERY 12 HOURS SUBQ 07/11/17 21:00 08/02/17 08:59 07/27/17 10:01 Lansoprazole (Prevacid) 30 mg DAILY ORAL 07/12/17 09:00 08/11/17 08:59 07/27/17 09:59 Linezolid (Zyvox) 600 mg EVERY 12 HOURS ORAL 07/23/17 21:00 08/03/17 20:59 07/27/17 10:10 Meropenem 1 gm/ Sodium Chloride 55 ml @ 110 mls/hr Q8H IVPB 07/21/17 19:00 08/01/17 18:59 07/27/17 12:38 Miscellaneous Medication (SEED LABORATORY ASSISTANT Rate Change) 1 ea DAILY PRN MISC rate change 07/27/17 00:30 07/29/17 00:29 Miscellaneous Medication (SEED LABORATORY ASSISTANT shift volume) 1 ea Q12HR@0700,1900 MISC 07/27/17 07:00 07/29/17 06:59 07/27/17 07:14 Morphine Sulfate (Morphine Sulfate) 2 mg Q2H PRN IV Moderate Breakthru Pain (5-7) 07/20/17 19:45 07/27/17 19:44 07/27/17 07:37 Morphine Sulfate (Morphine Sulfate) 4 mg Q3H PRN SUBQ Severe Breakthru Pain (>7) 07/20/17 19:44 07/27/17 19:43 07/26/17 13:00 Naloxone HCl (Narcan) 0.1 mg Q1M PRN IVP RR<10/min OR SBP<90 mmHg 07/27/17 00:30 07/29/17 00:29 Nitroglycerin (Ntg) 0.4 mg Q5MIN X 3 DOSES PRN SL Prn Chest Pain 07/11/17 20:32 08/09/17 20:31 Ondansetron HCl (Zofran) 4 mg Q6H PRN IVP Nausea & Vomiting 07/11/17 20:32 08/10/17 20:31 07/27/17 12:37 Potassium Chloride (K-Dur) 40 meq DAILY ORAL 07/20/17 09:00 08/19/17 08:59 07/27/17 09:59 Risperidone (RisperDAL) 4 mg BEDTIME ORAL 07/23/17 21:00 08/22/17 20:59 07/26/17 20:47 Sodium Chloride 1,000 ml @ 50 mls/hr Q20H IV 07/20/17 12:54 08/19/17 12:53 07/27/17 05:04 Temazepam (Restoril) 15 mg HSPRN PRN ORAL Insomnia 07/25/17 00:15 08/01/17 00:14 07/25/17 20:20 Williamson (Vanchtein),Gabbi PARR Jul 27, 2017 16:06
--- NOTE | 2017-07-27 16:32 | Infectious Diseases Prog Note ---
Assessment/Plan Assessment/Plan ASSESSMENT: The patient is a 46-year-old male with; Bowel perf w/ development of 2 Abscess (subphrenic and pelvic) Cx: E coli( ESBL) and ENTEROCOCCUS AVIUM (turcios S) and Bact Fragilis - Repeat CT with persistent LUQ fluid collection and 2 other fluid collections; former suspect still residual abscess; latter 2 possible sterile vs infected s/p second exp lap and abscess draiange -s/p exploratory laparotomy, abdominal washout, evacuation of abscess, drain placement and abdominal closure 07/20; cx p -s/p CT guided drainage APOLLO fluid collection 07/19: Aspiration and drainage of left upper quadrant collection, yielding 150 mL of carin pus. Note that the collection could only be partially evacuated, however, despite confirmation of apparent adequate position of the drain.This may indicate high viscosity of the contents; cx E. fecalis (turcios S), PREVOTELLA LOESCHEII (Aumgentin, Clinda R; Metronidazole S) s/p ex lap with left colectomy and transverse colostomy for perforated left colon, evacuation of intrabd abscess, abd washout w/ drain placement 07/09 -CT abd/p w/ 07/18: Postsurgical changes, as described, status post transverse colectomy, Jazz procedure, and placement of multiple surgical drains. Left upper quadrant intraperitoneal fluid collection, despite the presence of a surgical drain in the center of the collection. The presence of gas bubbles within rather than floating nondependently in the collection indicate that this fluid may be viscous. 2 other significant intraperitoneal collections,which do not appear to communicate, possibly loculated. Given presence of somewhat thick enhancing rim surrounding all of these, infected collections are certainly possible ( left paracolic gutter 5.8 cmx 4.3 cm x 8.3cm and R paracolic gutter, medial and inferior to tip R hepatic lobe 8cm x 6.4cm x8cm). Other than the gas within the left upper quadrant collection, previously demonstrated pneumoperitoneum has largely resolved. Left upper quadrant thick walled small bowel loops. Possibly reactive due to adjacent inflammation, enteritis is also possible. No evidence of bowel obstruction. Gallbladder wall edema versus pericholecystic fluid. -OR findings: The omentum was significantly thickened and adhesed to the small bowel and into the left lower quadrant. There was significant inflammatory process throughout the abdomen including a thickening of almost the entire peritoneal lining. The proximal portion of the jejunum was significantly thickened and had a rind of inflammatory infectious tissue on it. left transverse and descending colon, there was significant amount of thickening and significant disease process with some areas of mild ischemia noted and in the descending colon around the descending and sigmoid junction, there was a gross perforation with grossspillage of bowel contents noted in the area. there was a fluid collection/pelvic abscess, which was evacuated. There was a fluid collection in the right upper quadrant around the liver, which was evacuated and a large left upper quadrant subphrenic abscess with significant tissue rind and thickening around the stomach, spleen, peritoneum, and diaphragm in that location. CT : Evidence of perforation of hollow viscus with extensive amount of free air in the upper abdomen and some free fluid is well. Fever/Leukocytosis, recurrent- improving- 2ry to above -Bcx NTD Elevated ALP -Abd US: Negative for gallstones. There is borderline gallbladder wall thickening, however. Most likely, this is reactive secondary to surrounding inflammation related to recent bowel perforation and surgery for such. However, the possibility of acalculous acute cholecystitis should be considered, and consideration for nuclear medicine hepatobiliary scanning if there is high clinical suspicion history of diarrhea, SP ARMSEY: Improved HTN COPD/asthma. Smoker. History of chronic constipation. Osteoarthritis. ? CAD/NH, hx PLAN: -Continue IV Meropenem abx d#17 and IV Ampicillin(abx d#11 for enterococcal coverage) for intraabdominal abscess -Continue Fluconazole #7 -Continue empiric PO linezolid #5 given recurrent of murky fluid for MRSA and nocardia coverage empirically -plan to treat for 2-4 weeks from 07/20 --07/21 Zosyn #4 --3/14 SP Ertapenem, PO Amoxicillin #3 --3/12 SP Cefepime #2 --3/8 SP Zosyn d# 6 --SP Rocephin d# 5 -Requested micro lab to add fungal, nocardia and AFB cx to latest cultures -f/u CT guided drainage and OR cx -surgery following -wound care -Trend WBC monitor chest x-ray. Nephrology, following Monitor ( Blood ) Cx Discussed with Pardeep. Subjective Allergies: Coded Allergies: No Known Allergies (Unverified , 01/20/17) Subjective afebrile leukocytosis resolved Objective Vital Signs Last 24 Hour Vital Signs Date Time Temp Pulse Resp B/P (MAP) Pulse Ox O2 Delivery O2 Flow Rate FiO2 07/27/17 12:00 16 07/27/17 12:00 97.1 113 19 121/75 97 97.1 07/27/17 08:00 98.1 98 18 110/73 95 98.1 07/27/17 08:00 16 07/27/17 04:07 98.1 105 20 120/69 96 Room Air 98.1 07/27/17 04:00 14 07/27/17 00:00 12 07/27/17 00:00 97.8 95 18 117/74 96 97.8 07/26/17 21:18 98.0 07/26/17 21:18 98.0 07/26/17 20:54 98.0 07/26/17 20:48 98.0 07/26/17 20:02 97 Nasal Cannula 2.0 28 07/26/17 20:02 Nasal Cannula 2.0 28 07/26/17 20:00 98.2 96 19 121/74 94 98.2 07/26/17 20:00 14 Height (Feet): 5 Height (Inches): 9.00 Weight (Pounds): 145 Objective General Appearance: WD/WN, no apparent distress, alert, thin Cardiovascular: normal rate Respiratory/Chest: normal breath sounds, no respiratory distress Abdominal Exam: normal bowel sounds, non tender, soft, other - colostomy Extremities: non-tender Laboratory Tests Test 07/27/17 09:25 White Blood Count 11.3 K/UL (4.8-10.8) H Red Blood Count 3.35 M/UL (4.70-6.10) L Hemoglobin 10.1 G/DL (14.2-18.0) L Hematocrit 30.3 % (42.0-52.0) L Mean Corpuscular Volume 90 FL (80-99) Mean Corpuscular Hemoglobin 30.2 PG (27.0-31.0) Mean Corpuscular Hemoglobin Concent 33.5 G/DL (32.0-36.0) Red Cell Distribution Width 12.6 % (11.6-14.8) Platelet Count 443 K/UL (150-450) Mean Platelet Volume 4.9 FL (6.5-10.1) L Neutrophils (%) (Auto) 82.5 % (45.0-75.0) H Lymphocytes (%) (Auto) 10.3 % (20.0-45.0) L Monocytes (%) (Auto) 5.3 % (1.0-10.0) Eosinophils (%) (Auto) 1.0 % (0.0-3.0) Basophils (%) (Auto) 0.9 % (0.0-2.0) Sodium Level 134 MMOL/L (136-145) L Potassium Level 4.1 MMOL/L (3.5-5.1) Chloride Level 96 MMOL/L (98-107) L Carbon Dioxide Level 32 MMOL/L (21-32) Anion Gap 6 mmol/L (5-15) Blood Urea Nitrogen 4 mg/dL (7-18) L Creatinine 0.6 MG/DL (0.55-1.30) Estimat Glomerular Filtration Rate > 60 mL/min (>60) Glucose Level 90 MG/DL (74-106) Calcium Level 7.9 MG/DL (8.5-10.1) L Current Medications Medications (Trade) Dose Ordered Sig/Kayy Route PRN Reason Start Time Stop Time Status Last Admin Dose Admin Acetaminophen (Tylenol) 650 mg Q6H PRN ORAL Mild Pain/Temp > 100.5 07/14/17 19:00 08/13/17 18:59 07/21/17 12:18 Ampicillin 2 gm/ Sodium Chloride 110 ml @ 220 mls/hr EVERY 6 HOURS IVPB 07/21/17 18:30 08/01/17 18:29 07/27/17 13:36 Calcium Carbonate (Tums) 1,000 mg Q4H PRN ORAL HEARTBURN/INDIGESTION 07/20/17 18:00 08/19/17 17:59 07/25/17 05:57 Dextrose (Dextrose 50%) STAT PRN IV Hypoglycemia 07/11/17 20:30 08/10/17 20:29 Diphenhydramine HCl (Benadryl) 25 mg Q6H PRN IVP Itching 07/25/17 17:00 08/24/17 16:59 07/26/17 09:53 Finasteride (Proscar) 5 mg DAILY ORAL 07/13/17 09:00 08/12/17 08:59 07/27/17 09:59 Fluconazole/ Sodium Chloride 100 ml @ 100 mls/hr Q24H IV 07/20/17 14:00 08/01/17 13:59 07/27/17 15:03 Heparin Sodium (Porcine) (Heparin 5000 units/ml) 5,000 units EVERY 12 HOURS SUBQ 07/11/17 21:00 08/02/17 08:59 07/27/17 10:01 Lansoprazole (Prevacid) 30 mg DAILY ORAL 07/12/17 09:00 08/11/17 08:59 07/27/17 09:59 Linezolid (Zyvox) 600 mg EVERY 12 HOURS ORAL 07/23/17 21:00 08/03/17 20:59 07/27/17 10:10 Meropenem 1 gm/ Sodium Chloride 55 ml @ 110 mls/hr Q8H IVPB 07/21/17 19:00 08/01/17 18:59 07/27/17 12:38 Miscellaneous Medication (ASSISTANT PROFESSOR OF HISTORY Rate Change) 1 ea DAILY PRN MISC rate change 07/27/17 00:30 07/29/17 00:29 Miscellaneous Medication (ASSISTANT PROFESSOR OF HISTORY shift volume) 1 ea Q12HR@0700,1900 MISC 07/27/17 07:00 07/29/17 06:59 07/27/17 07:14 Morphine Sulfate (Morphine Sulfate) 2 mg Q2H PRN IV Moderate Breakthru Pain (5-7) 07/20/17 19:45 07/27/17 19:44 07/27/17 07:37 Morphine Sulfate (Morphine Sulfate) 4 mg Q3H PRN SUBQ Severe Breakthru Pain (>7) 07/20/17 19:44 07/27/17 19:43 07/26/17 13:00 Naloxone HCl (Narcan) 0.1 mg Q1M PRN IVP RR<10/min OR SBP<90 mmHg 07/27/17 00:30 07/29/17 00:29 Nitroglycerin (Ntg) 0.4 mg Q5MIN X 3 DOSES PRN SL Prn Chest Pain 07/11/17 20:32 08/09/17 20:31 Ondansetron HCl (Zofran) 4 mg Q6H PRN IVP Nausea & Vomiting 3/7/18 20:32 08/10/17 20:31 07/27/17 12:37 Potassium Chloride (K-Dur) 40 meq DAILY ORAL 07/20/17 09:00 08/19/17 08:59 07/27/17 09:59 Risperidone (RisperDAL) 4 mg BEDTIME ORAL 07/23/17 21:00 08/22/17 20:59 07/26/17 20:47 Sodium Chloride 1,000 ml @ 50 mls/hr Q20H IV 07/20/17 12:54 08/19/17 12:53 07/27/17 05:04 Temazepam (Restoril) 15 mg HSPRN PRN ORAL Insomnia 07/25/17 00:15 08/01/17 00:14 07/25/17 20:20 Chhaya Menendez M.D. Jul 27, 2017 16:32
[2017-07-27] MEDS: DiphenhydrAMINE 50mg/ml Inj IVP PRN (17:57)
[2017-07-27 20:00] VITALS: BP 125/77
[2017-07-28] VITALS: BP 121/74
[2017-07-28] MEDS: Meropenem 1 GM in NS 55 ML IVPB SCH ×2 (02:32→11:02)
[2017-07-28] MEDS ORDERED: Morphine Sulfate 4mg/ml Inj SUBQ PRN (03:00)
[2017-07-28] MEDS: PCA Morphine 1mg/ml 30 ML IV PRN ×3 (03:57→22:47)
[2017-07-28 04:00] VITALS: BP 119/70
[2017-07-28] MEDS: Ampicillin 2 GM in NS 110 ML IVPB SCH ×4 (05:56→23:47)
[2017-07-28 07:17] LABS: ANION GAP 2 mmol/L (5-15); BLOOD UREA NITROGEN 5 mg/dL (7-18); CALCIUM 7.8 MG/DL (8.5-10.1); CARBON DIOXIDE 34 MMOL/L (21-32); CHLORIDE 99 MMOL/L (98-107); CREATININE 0.7 MG/DL (0.55-1.30); SODIUM 135 MMOL/L (136-145)
[2017-07-28] MEDS: PCA shift volume MISC SCH ×2 (07:27→19:18)
[2017-07-28 07:53] LABS: BASOPHILS % (AUTO) 0.9 % (0.0-2.0); HEMATOCRIT 29.1 % (42.0-52.0); HEMOGLOBIN 9.7 G/DL (14.2-18.0); LYMPHOCYTES % (AUTO) 12.3 % (20.0-45.0); MEAN CORPUSCULAR VOLUME 90 FL (80-99); MONOCYTES % (AUTO) 5.7 % (1.0-10.0); PLATELET COUNT 389 K/UL (150-450); RED BLOOD COUNT 3.22 M/UL (4.70-6.10); RED CELL DISTRIBUTION WIDTH 12.8 % (11.6-14.8); WHITE BLOOD COUNT 9.9 K/UL (4.8-10.8)
[2017-07-28 08:00] VITALS: BP 127/77
[2017-07-28] MEDS: Morphine Sulfate 2mg/ml Inj IVP PRN ×3 (08:43→23:48)
[2017-07-28] MEDS: Heparin 5000 units/ml inj SUBQ SCH ×2 (09:05→21:34)
--- NOTE | 2017-07-28 09:44 | General Progress Note ---
Progress Note Progress Note AVSS Eating small amounts + ensure with good colostomy output Abdomen soft, wound is clean and granulating WBC 9900 Imp: Stable Plan: continue current regimen RALPH ALVARADO Jul 28, 2017 09:44
[2017-07-28 12:00] VITALS: BP 111/70
--- NOTE | 2017-07-28 12:24 | Infectious Diseases Prog Note ---
Assessment/Plan Assessment/Plan ASSESSMENT: The patient is a 46-year-old male with; Bowel perf w/ development of 2 Abscess (subphrenic and pelvic) Cx: E coli( ESBL) and ENTEROCOCCUS AVIUM (turcios S) and Bact Fragilis - Repeat CT with persistent LUQ fluid collection and 2 other fluid collections; former suspect still residual abscess; latter 2 possible sterile vs infected s/p second exp lap and abscess draiange -s/p exploratory laparotomy, abdominal washout, evacuation of abscess, drain placement and abdominal closure 07/20; cx p -s/p CT guided drainage APOLLO fluid collection 07/19: Aspiration and drainage of left upper quadrant collection, yielding 150 mL of carin pus. Note that the collection could only be partially evacuated, however, despite confirmation of apparent adequate position of the drain.This may indicate high viscosity of the contents; cx E. fecalis (turcios S), PREVOTELLA LOESCHEII (Aumgentin, Clinda R; Metronidazole S) s/p ex lap with left colectomy and transverse colostomy for perforated left colon, evacuation of intrabd abscess, abd washout w/ drain placement 07/09 -CT abd/p w/ 07/18: Postsurgical changes, as described, status post transverse colectomy, Jazz procedure, and placement of multiple surgical drains. Left upper quadrant intraperitoneal fluid collection, despite the presence of a surgical drain in the center of the collection. The presence of gas bubbles within rather than floating nondependently in the collection indicate that this fluid may be viscous. 2 other significant intraperitoneal collections,which do not appear to communicate, possibly loculated. Given presence of somewhat thick enhancing rim surrounding all of these, infected collections are certainly possible ( left paracolic gutter 5.8 cmx 4.3 cm x 8.3cm and R paracolic gutter, medial and inferior to tip R hepatic lobe 8cm x 6.4cm x8cm). Other than the gas within the left upper quadrant collection, previously demonstrated pneumoperitoneum has largely resolved. Left upper quadrant thick walled small bowel loops. Possibly reactive due to adjacent inflammation, enteritis is also possible. No evidence of bowel obstruction. Gallbladder wall edema versus pericholecystic fluid. -OR findings: The omentum was significantly thickened and adhesed to the small bowel and into the left lower quadrant. There was significant inflammatory process throughout the abdomen including a thickening of almost the entire peritoneal lining. The proximal portion of the jejunum was significantly thickened and had a rind of inflammatory infectious tissue on it. left transverse and descending colon, there was significant amount of thickening and significant disease process with some areas of mild ischemia noted and in the descending colon around the descending and sigmoid junction, there was a gross perforation with grossspillage of bowel contents noted in the area. there was a fluid collection/pelvic abscess, which was evacuated. There was a fluid collection in the right upper quadrant around the liver, which was evacuated and a large left upper quadrant subphrenic abscess with significant tissue rind and thickening around the stomach, spleen, peritoneum, and diaphragm in that location. CT : Evidence of perforation of hollow viscus with extensive amount of free air in the upper abdomen and some free fluid is well. Fever/Leukocytosis, recurrent- improving- 2ry to above -Bcx NTD Elevated ALP -Abd US: Negative for gallstones. There is borderline gallbladder wall thickening, however. Most likely, this is reactive secondary to surrounding inflammation related to recent bowel perforation and surgery for such. However, the possibility of acalculous acute cholecystitis should be considered, and consideration for nuclear medicine hepatobiliary scanning if there is high clinical suspicion history of diarrhea, SP RAMSEY: Improved HTN COPD/asthma. Smoker. History of chronic constipation. Osteoarthritis. ? CAD/MS, hx PLAN: -Continue IV Meropenem abx d#18 and IV Ampicillin(abx d#12 for enterococcal coverage) for intraabdominal abscess -Continue Fluconazole #8 -Continue empiric PO linezolid #6 given recurrent of murky fluid for MRSA and nocardia coverage empirically -plan to treat for 2-4 weeks from 07/20 --07/21 Zosyn #4 --3/14 SP Ertapenem, PO Amoxicillin #3 --3/12 SP Cefepime #2 --3/8 SP Zosyn d# 6 --SP Rocephin d# 5 -Requested micro lab to add fungal, nocardia and AFB cx to latest cultures -f/u CT guided drainage and OR cx -surgery following -wound care -Trend WBC monitor chest x-ray. Nephrology, following Monitor ( Blood ) Cx Discussed with Pardeep. Subjective Allergies: Coded Allergies: No Known Allergies (Unverified , 01/20/17) Subjective afebrile leukocytosis resolved Objective Vital Signs Last 24 Hour Vital Signs Date Time Temp Pulse Resp B/P (MAP) Pulse Ox O2 Delivery O2 Flow Rate FiO2 07/28/17 08:00 20 07/28/17 08:00 97.2 110 20 127/77 96 Room Air 97.2 07/28/17 04:02 98.2 07/28/17 04:02 98.2 07/28/17 04:00 16 07/28/17 04:00 99.0 99 19 119/70 93 Room Air 99.0 07/28/17 03:32 98.2 07/28/17 00:00 98.2 103 19 121/74 90 98.2 07/28/17 00:00 16 07/27/17 20:00 16 07/27/17 20:00 97.7 71 18 125/77 95 Room Air 97.7 07/27/17 16:00 97.6 94 19 125/84 97 97.6 07/27/17 16:00 16 Height (Feet): 5 Height (Inches): 9.00 Weight (Pounds): 145 Objective General Appearance: WD/WN, no apparent distress, alert, thin Cardiovascular: normal rate Respiratory/Chest: normal breath sounds, no respiratory distress Abdominal Exam: normal bowel sounds, non tender, soft, other - colostomy Extremities: non-tender Laboratory Tests Test 07/28/17 06:15 White Blood Count 9.9 K/UL (4.8-10.8) Red Blood Count 3.22 M/UL (4.70-6.10) L Hemoglobin 9.7 G/DL (14.2-18.0) L Hematocrit 29.1 % (42.0-52.0) L Mean Corpuscular Volume 90 FL (80-99) Mean Corpuscular Hemoglobin 30.2 PG (27.0-31.0) Mean Corpuscular Hemoglobin Concent 33.4 G/DL (32.0-36.0) Red Cell Distribution Width 12.8 % (11.6-14.8) Platelet Count 389 K/UL (150-450) Mean Platelet Volume 4.7 FL (6.5-10.1) L Neutrophils (%) (Auto) 80.0 % (45.0-75.0) H Lymphocytes (%) (Auto) 12.3 % (20.0-45.0) L Monocytes (%) (Auto) 5.7 % (1.0-10.0) Eosinophils (%) (Auto) 1.0 % (0.0-3.0) Basophils (%) (Auto) 0.9 % (0.0-2.0) Sodium Level 135 MMOL/L (136-145) L Potassium Level 4.0 MMOL/L (3.5-5.1) Chloride Level 99 MMOL/L (98-107) Carbon Dioxide Level 34 MMOL/L (21-32) H Anion Gap 2 mmol/L (5-15) L Blood Urea Nitrogen 5 mg/dL (7-18) L Creatinine 0.7 MG/DL (0.55-1.30) Estimat Glomerular Filtration Rate > 60 mL/min (>60) Glucose Level 97 MG/DL (74-106) Calcium Level 7.8 MG/DL (8.5-10.1) L Current Medications Medications (Trade) Dose Ordered Sig/Kayy Route PRN Reason Start Time Stop Time Status Last Admin Dose Admin Acetaminophen (Tylenol) 650 mg Q6H PRN ORAL Mild Pain/Temp > 100.5 07/14/17 19:00 08/13/17 18:59 07/21/17 12:18 Ampicillin 2 gm/ Sodium Chloride 110 ml @ 220 mls/hr EVERY 6 HOURS IVPB 07/21/17 18:30 08/01/17 18:29 07/28/17 05:56 Calcium Carbonate (Tums) 1,000 mg Q4H PRN ORAL HEARTBURN/INDIGESTION 07/20/17 18:00 08/19/17 17:59 07/25/17 05:57 Dextrose (Dextrose 50%) STAT PRN IV Hypoglycemia 07/11/17 20:30 08/10/17 20:29 Diphenhydramine HCl (Benadryl) 25 mg Q6H PRN IVP Itching 07/25/17 17:00 08/24/17 16:59 07/27/17 17:57 Finasteride (Proscar) 5 mg DAILY ORAL 07/13/17 09:00 08/12/17 08:59 07/28/17 08:43 Fluconazole/ Sodium Chloride 100 ml @ 100 mls/hr Q24H IV 07/20/17 14:00 08/01/17 13:59 07/27/17 15:03 Heparin Sodium (Porcine) (Heparin 5000 units/ml) 5,000 units EVERY 12 HOURS SUBQ 07/11/17 21:00 08/02/17 08:59 07/28/17 09:05 Lansoprazole (Prevacid) 30 mg DAILY ORAL 07/12/17 09:00 08/11/17 08:59 07/28/17 08:43 Linezolid (Zyvox) 600 mg EVERY 12 HOURS ORAL 07/23/17 21:00 08/03/17 20:59 07/28/17 08:43 Meropenem 1 gm/ Sodium Chloride 55 ml @ 110 mls/hr Q8H IVPB 07/21/17 19:00 08/01/17 18:59 07/28/17 11:02 Miscellaneous Medication (PERSONNEL RECRUITER Rate Change) 1 ea DAILY PRN MISC rate change 07/27/17 00:30 07/29/17 00:29 Miscellaneous Medication (PERSONNEL RECRUITER shift volume) 1 ea Q12HR@0700,1900 MISC 07/27/17 07:00 07/29/17 06:59 07/28/17 07:27 Morphine Sulfate 30 ml @ 0 mls/hr PERSONNEL RECRUITER Protocol PRN IV For Pain 07/27/17 19:30 07/29/17 19:29 07/28/17 03:57 Morphine Sulfate (Morphine Sulfate) 2 mg Q2HR PRN IVP For Breakthrough Pain (Mod) 07/28/17 03:00 08/04/17 02:59 07/28/17 08:43 Morphine Sulfate (Morphine Sulfate) 4 mg EVERY 3 HOURS PRN SUBQ For Breakthrough Pain (Severe) 07/28/17 03:00 08/04/17 02:59 07/28/17 03:32 Naloxone HCl (Narcan) 0.1 mg Q1M PRN IVP RR<10/min OR SBP<90 mmHg 07/27/17 00:30 07/29/17 00:29 Nitroglycerin (Ntg) 0.4 mg Q5MIN X 3 DOSES PRN SL Prn Chest Pain 07/11/17 20:32 08/09/17 20:31 Ondansetron HCl (Zofran) 4 mg Q6H PRN IVP Nausea & Vomiting 07/11/17 20:32 08/10/17 20:31 07/28/17 10:56 Potassium Chloride (K-Dur) 40 meq DAILY ORAL 07/20/17 09:00 08/19/17 08:59 07/28/17 08:43 Risperidone (RisperDAL) 4 mg BEDTIME ORAL 07/23/17 21:00 08/22/17 20:59 07/27/17 21:45 Sodium Chloride 1,000 ml @ 50 mls/hr Q20H IV 07/20/17 12:54 08/19/17 12:53 07/27/17 05:04 Temazepam (Restoril) 15 mg HSPRN PRN ORAL Insomnia 07/25/17 00:15 08/01/17 00:14 07/25/17 20:20 Chhaya Menendez M.D. Jul 28, 2017 12:24
[2017-07-28] MEDS: DiphenhydrAMINE 50mg/ml Inj IVP PRN ×2 (12:58→20:16)
--- NOTE | 2017-07-28 13:34 | Pulmonology Progress Note ---
Assessment/Plan Assessment/Plan ASSESSMENT perforation of viscus pneumoperitoneum pleuritic chest pain ( likely due to perforated viscus) perforated left colon with prolonged inflammatory reaction, gross spillage, and bowel ischemia. Intra-abdominal abscess. s/p 07/08 Exploratory laparotomy, extended left colectomy, transverse colostomy creation, evacuation of intra-abdominal abscess, abdominal washout with drain placement. s/p 07/19 aspiration and drainage of intraperitoneal fluid collection by IR- 150cc Large complex intra-abdominal abscess Midline wound dehiscence. s/p 07/20 Exploratory laparotomy with evacuation of intra-abdominal abscess with debridement of necrotic infected tissues. abdominal washout and drain placement ARF -resolved hyperkalemia-resolved rhabdo-resolved acute on chronic constipation ? 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, will dc in am IS while in the bed and encourage to use, O2 HHN prn OOB as tolerated with PT/OT wound care DVT GI prophylaxis colostomy care GI follows ARF resolved, monitor renal parameters, lytes, correct as needed, avoid nephrotoxic nephro follows staff genetic counselor on abstinence from street drugs staff genetic counselor on abstinence from smoking declined nicotine patch psych follows psych meds as per psych recs initially: troponin x 2 negative, no acute ischemic changes on ECF/tele , thus no evidence of acute [place] cardio eval appreciated O2 HHN prn Venous Duplex BLE negative stat CTA chest done 07/08 with evidence perforation of hollow viscus with extensive amount of free air in the upper abdomen and some free fluid is well.; no evidence of PE inial surgery 07/09 ECHO with pEF case discussed and evaluated by supervising physician Subjective Allergies: Coded Allergies: No Known Allergies (Unverified , 01/20/17) Subjective pain controlled with WATER PUMP OPERATOR no leucocytosis, afebrile eats small amount Objective Last 24 Hour Vital Signs Date Time Temp Pulse Resp B/P (MAP) Pulse Ox O2 Delivery O2 Flow Rate FiO2 3/24/18 12:00 18 07/28/17 12:00 97.1 97 20 111/70 96 97.1 07/28/17 08:00 20 07/28/17 08:00 97.2 110 20 127/77 96 Room Air 97.2 07/28/17 04:02 98.2 07/28/17 04:02 98.2 07/28/17 04:00 16 07/28/17 04:00 99.0 99 19 119/70 93 Room Air 99.0 07/28/17 03:32 98.2 07/28/17 00:00 98.2 103 19 121/74 90 98.2 07/28/17 00:00 16 07/27/17 20:00 16 07/27/17 20:00 97.7 71 18 125/77 95 Room Air 97.7 07/27/17 16:00 97.6 94 19 125/84 97 97.6 07/27/17 16:00 16 Intake and Output 07/27/17 07/28/17 19:00 07:00 Intake Total 615 ml Output Total 536 ml Balance 79 ml IV Total 615 ml Output Urine Total 500 ml Drainage Total 36 ml # Voids 4 Objective General Appearance: no acute distress, A/A/O x 3 male HEENT: normocephalic, atraumatic, anicteric Respiratory/Chest: lungs clear, no respiratory distress Cardiovascular: normal rate, no JVD Abdomen: normal bowel sounds, Colostomy with stool, 2 ALIA drains with serosanguineous drainage, dressing C/D/I Extremities: no edema, pedal pulses normal Neurologic/Psychiatric: alert, oriented x 3, responsive Musculoskeletal: normal muscle bulk Laboratory Tests 07/28/17 06:15: White Blood Count 9.9, Red Blood Count 3.22L, Hemoglobin 9.7L, Hematocrit 29.1L , Mean Corpuscular Volume 90, Mean Corpuscular Hemoglobin 30.2, Mean Corpuscular Hemoglobin Concent 33.4, Red Cell Distribution Width 12.8, Platelet Count 389, Mean Platelet Volume 4.7L, Neutrophils (%) (Auto) 80.0H, Lymphocytes (%) (Auto) 12.3L, Monocytes (%) (Auto) 5.7, Eosinophils (%) (Auto) 1.0, Basophils (%) (Auto) 0.9, Sodium Level 135L, Potassium Level 4.0, Chloride Level 99, Carbon Dioxide Level 34H, Anion Gap 2L, Blood Urea Nitrogen 5L, Creatinine 0.7, Estimat Glomerular Filtration Rate > 60, Glucose Level 97, Calcium Level 7.8L Current Medications Medications (Trade) Dose Ordered Sig/Kayy Route PRN Reason Start Time Stop Time Status Last Admin Dose Admin Acetaminophen (Tylenol) 650 mg Q6H PRN ORAL Mild Pain/Temp > 100.5 07/14/17 19:00 08/13/17 18:59 07/21/17 12:18 Ampicillin 2 gm/ Sodium Chloride 110 ml @ 220 mls/hr EVERY 6 HOURS IVPB 07/21/17 18:30 08/01/17 18:29 07/28/17 12:42 Calcium Carbonate (Tums) 1,000 mg Q4H PRN ORAL HEARTBURN/INDIGESTION 07/20/17 18:00 08/19/17 17:59 07/25/17 05:57 Dextrose (Dextrose 50%) STAT PRN IV Hypoglycemia 07/11/17 20:30 08/10/17 20:29 Diphenhydramine HCl (Benadryl) 25 mg Q6H PRN IVP Itching 07/25/17 17:00 08/24/17 16:59 07/28/17 12:58 Finasteride (Proscar) 5 mg DAILY ORAL 07/13/17 09:00 08/12/17 08:59 07/28/17 08:43 Fluconazole/ Sodium Chloride 100 ml @ 100 mls/hr Q24H IV 07/20/17 14:00 08/01/17 13:59 07/27/17 15:03 Heparin Sodium (Porcine) (Heparin 5000 units/ml) 5,000 units EVERY 12 HOURS SUBQ 07/11/17 21:00 08/02/17 08:59 07/28/17 09:05 Lansoprazole (Prevacid) 30 mg DAILY ORAL 07/12/17 09:00 08/11/17 08:59 07/28/17 08:43 Linezolid (Zyvox) 600 mg EVERY 12 HOURS ORAL 07/23/17 21:00 08/03/17 20:59 07/28/17 08:43 Meropenem 1 gm/ Sodium Chloride 110 ml @ 220 mls/hr Q8HR@0300,1100,1900 IVPB 07/28/17 19:00 08/02/17 18:59 Miscellaneous Medication (WATER PUMP OPERATOR Rate Change) 1 ea DAILY PRN MISC rate change 07/27/17 00:30 07/29/17 00:29 Miscellaneous Medication (WATER PUMP OPERATOR shift volume) 1 ea Q12HR@0700,1900 MISC 07/27/17 07:00 07/29/17 06:59 07/28/17 07:27 Morphine Sulfate 30 ml @ 0 mls/hr WATER PUMP OPERATOR Protocol PRN IV For Pain 07/27/17 19:30 07/29/17 19:29 07/28/17 12:54 Morphine Sulfate (Morphine Sulfate) 2 mg Q2HR PRN IVP For Breakthrough Pain (Mod) 07/28/17 03:00 08/04/17 02:59 07/28/17 08:43 Morphine Sulfate (Morphine Sulfate) 4 mg EVERY 3 HOURS PRN SUBQ For Breakthrough Pain (Severe) 07/28/17 03:00 08/04/17 02:59 07/28/17 03:32 Naloxone HCl (Narcan) 0.1 mg Q1M PRN IVP RR<10/min OR SBP<90 mmHg 07/27/17 00:30 07/29/17 00:29 Nitroglycerin (Ntg) 0.4 mg Q5MIN X 3 DOSES PRN SL Prn Chest Pain 07/11/17 20:32 08/09/17 20:31 Ondansetron HCl (Zofran) 4 mg Q6H PRN IVP Nausea & Vomiting 07/11/17 20:32 08/10/17 20:31 07/28/17 10:56 Potassium Chloride (K-Dur) 40 meq DAILY ORAL 07/20/17 09:00 08/19/17 08:59 07/28/17 08:43 Risperidone (RisperDAL) 4 mg BEDTIME ORAL 07/23/17 21:00 08/22/17 20:59 07/27/17 21:45 Sodium Chloride 1,000 ml @ 50 mls/hr Q20H IV 07/20/17 12:54 08/19/17 12:53 07/27/17 05:04 Temazepam (Restoril) 15 mg HSPRN PRN ORAL Insomnia 07/25/17 00:15 08/01/17 00:14 07/25/17 20:20 Clay ([facility])Gabbi NP Jul 28, 2017 13:34
[2017-07-28 15:49] VITALS: BP 111/75
--- NOTE | 2017-07-28 16:23 | Nephrology Progress Note ---
Assessment/Plan Problem List: (1) ARF (acute renal failure) (2) UTI (urinary tract infection) (3) Psychiatric disorder (4) Acute abdomen Assessment Status: WBCs wnl had multi abdominal drains acute renal failure- extended left colectomy due to perf transverse colostomy creation Plan Plan: per charles, 07/20/17 Mag and K supplement as needed DC horan DC IV PT advance diet Post op ( OP 07/08/17) Horan- 2D echo normal Ej Fx Albumin bollous monitor renal parameters K and Phos and Mag supplement as needed Subjective ROS Limited/Unobtainable: No Objective Objective Last 24 Hour Vital Signs Date Time Temp Pulse Resp B/P (MAP) Pulse Ox O2 Delivery O2 Flow Rate FiO2 07/28/17 16:00 20 07/28/17 15:49 97.9 109 20 111/75 93 97.9 07/28/17 12:00 18 07/28/17 12:00 97.1 97 20 111/70 96 97.1 07/28/17 08:00 20 07/28/17 08:00 97.2 110 20 127/77 96 Room Air 97.2 07/28/17 04:02 98.2 07/28/17 04:02 98.2 07/28/17 04:00 16 07/28/17 04:00 99.0 99 19 119/70 93 Room Air 99.0 07/28/17 03:32 98.2 07/28/17 00:00 98.2 103 19 121/74 90 98.2 07/28/17 00:00 16 07/27/17 20:00 16 07/27/17 20:00 97.7 71 18 125/77 95 Room Air 97.7 Intake and Output 07/27/17 07/28/17 19:00 07:00 Intake Total 615 ml 50 ml Output Total 536 ml Balance 79 ml 50 ml IV Total 615 ml 50 ml Output Urine Total 500 ml Drainage Total 36 ml # Voids 4 Laboratory Tests 07/28/17 06:15: White Blood Count 9.9, Red Blood Count 3.22L, Hemoglobin 9.7L, Hematocrit 29.1L , Mean Corpuscular Volume 90, Mean Corpuscular Hemoglobin 30.2, Mean Corpuscular Hemoglobin Concent 33.4, Red Cell Distribution Width 12.8, Platelet Count 389, Mean Platelet Volume 4.7L, Neutrophils (%) (Auto) 80.0H, Lymphocytes (%) (Auto) 12.3L, Monocytes (%) (Auto) 5.7, Eosinophils (%) (Auto) 1.0, Basophils (%) (Auto) 0.9, Sodium Level 135L, Potassium Level 4.0, Chloride Level 99, Carbon Dioxide Level 34H, Anion Gap 2L, Blood Urea Nitrogen 5L, Creatinine 0.7, Estimat Glomerular Filtration Rate > 60, Glucose Level 97, Calcium Level 7.8L Height (Feet): 5 Height (Inches): 9.00 Weight (Pounds): 145 General Appearance: no apparent distress Objective no other change NOEMY MARK Jul 28, 2017 16:23
[2017-07-28] MEDS ORDERED: Tubing IV Secondary IV ONE (17:35)
[2017-07-28] MEDS: Meropenem 1 GM in NS 110 ML IVPB SCH (18:07)
[2017-07-28 20:00] VITALS: BP 110/65
[2017-07-29] VITALS: BP 108/70
[2017-07-29] MEDS: Morphine Sulfate 2mg/ml Inj IVP PRN (01:42)
[2017-07-29] MEDS: Meropenem 1 GM in NS 110 ML IVPB SCH ×3 (03:03→19:13)
[2017-07-29 04:00] VITALS: BP 110/73
[2017-07-29] MEDS: Ampicillin 2 GM in NS 110 ML IVPB SCH ×4 (05:35→22:58)
[2017-07-29] MEDS: DiphenhydrAMINE 50mg/ml Inj IVP PRN ×2 (06:29→17:43)
[2017-07-29] MEDS: PCA shift volume MISC SCH (07:00)
[2017-07-29 08:00] VITALS: BP 122/72
[2017-07-29 08:34] LABS: BASOPHILS % (AUTO) 0.7 % (0.0-2.0); EOSINOPHILS % (AUTO) 0.9 % (0.0-3.0); HEMATOCRIT 32.3 % (42.0-52.0); HEMOGLOBIN 10.9 G/DL (14.2-18.0); LYMPHOCYTES % (AUTO) 10.8 % (20.0-45.0); MEAN CORPUSCULAR VOLUME 90 FL (80-99); MONOCYTES % (AUTO) 5.1 % (1.0-10.0); NEUTROPHILS % (AUTO) 82.6 % (45.0-75.0); PLATELET COUNT 413 K/UL (150-450); RED BLOOD COUNT 3.61 M/UL (4.70-6.10); RED CELL DISTRIBUTION WIDTH 13.2 % (11.6-14.8); WHITE BLOOD COUNT 9.8 K/UL (4.8-10.8)
[2017-07-29 08:43] LABS: ANION GAP 4 mmol/L (5-15); BLOOD UREA NITROGEN 4 mg/dL (7-18); CALCIUM 8.1 MG/DL (8.5-10.1); CARBON DIOXIDE 34 MMOL/L (21-32); CHLORIDE 97 MMOL/L (98-107); CREATININE 0.7 MG/DL (0.55-1.30); POTASSIUM 4.2 MMOL/L (3.5-5.1); SODIUM 135 MMOL/L (136-145)
--- NOTE | 2017-07-29 09:50 | Nephrology Progress Note ---
Assessment/Plan Problem List: (1) ARF (acute renal failure) (2) UTI (urinary tract infection) (3) Psychiatric disorder (4) Acute abdomen Assessment Status: WBCs wnl had multi abdominal drains acute renal failure- extended left colectomy due to perf transverse colostomy creation Plan Plan: per charles, 07/20/17 Mag and K supplement as needed DC horan DC IV PT advance diet Post op ( OP 07/08/17) Horan- 2D echo normal Ej Fx Albumin bollous monitor renal parameters K and Phos and Mag supplement as needed Subjective ROS Limited/Unobtainable: No Constitutional: Reports: malaise Objective Objective Last 24 Hour Vital Signs Date Time Temp Pulse Resp B/P (MAP) Pulse Ox O2 Delivery O2 Flow Rate FiO2 07/29/17 08:09 18 07/29/17 08:00 97.7 126 20 122/72 92 Room Air 97.7 07/29/17 05:37 95 Room Air 07/29/17 04:07 18 07/29/17 04:00 98.2 112 17 110/73 91 Room Air 98.2 07/29/17 02:12 99.7 07/29/17 01:44 93 Room Air 07/29/17 01:42 99.7 07/29/17 01:26 18 07/29/17 00:00 99.1 98 21 108/70 90 Room Air 99.1 07/28/17 23:48 99.7 07/28/17 23:17 99.7 07/28/17 22:52 18 07/28/17 22:47 99.7 07/28/17 20:19 18 07/28/17 20:00 99.7 108 18 110/65 92 Room Air 99.7 07/28/17 20:00 Room Air 07/28/17 19:24 Nasal Cannula 1.0 24 07/28/17 19:24 97 Nasal Cannula 2.0 28 07/28/17 16:00 20 07/28/17 15:49 97.9 109 20 111/75 93 97.9 07/28/17 12:00 18 07/28/17 12:00 97.1 97 20 111/70 96 97.1 Intake and Output 07/28/17 07/29/17 19:00 07:00 Intake Total 1455 ml 770 ml Output Total 458 ml 1175 ml Balance 997 ml -405 ml Intake Oral 720 ml 240 ml IV Total 735 ml 530 ml Output Urine Total 450 ml 1000 ml Stool Total 160 ml Drainage Total 8 ml 15 ml Laboratory Tests 07/29/17 08:00: White Blood Count 9.8, Red Blood Count 3.61L, Hemoglobin 10.9L, Hematocrit 32.3L , Mean Corpuscular Volume 90, Mean Corpuscular Hemoglobin 30.1, Mean Corpuscular Hemoglobin Concent 33.6, Red Cell Distribution Width 13.2, Platelet Count 413, Mean Platelet Volume 4.8L, Neutrophils (%) (Auto) 82.6H, Lymphocytes (%) (Auto) 10.8L, Monocytes (%) (Auto) 5.1, Eosinophils (%) (Auto) 0.9, Basophils (%) (Auto) 0.7, Sodium Level 135L, Potassium Level 4.2, Chloride Level 97L, Carbon Dioxide Level 34H, Anion Gap 4L, Blood Urea Nitrogen 4L, Creatinine 0.7, Estimat Glomerular Filtration Rate > 60, Glucose Level 126H, Calcium Level 8.1L Height (Feet): 5 Height (Inches): 9.00 Weight (Pounds): 140 General Appearance: no apparent distress Cardiovascular: tachycardia Respiratory/Chest: lungs clear Abdomen: distended, other - drains Objective no other change NOEMY MARK 25, 2018 09:50
--- NOTE | 2017-07-29 10:19 | Pulmonology Progress Note ---
Assessment/Plan Assessment/Plan ASSESSMENT perforation of viscus pneumoperitoneum pleuritic chest pain ( likely due to perforated viscus) -perforated left colon with prolonged inflammatory reaction, gross spillage, and bowel ischemia. -Intra-abdominal abscess. s/p 3 Exploratory laparotomy, extended left colectomy, transverse colostomy creation, evacuation of intra-abdominal abscess, abdominal washout with drain placement. s/p 07/19 aspiration and drainage of intraperitoneal fluid collection by IR- 150cc Large complex intra-abdominal abscess Midline wound dehiscence. s/p 07/20 Exploratory laparotomy with evacuation of intra-abdominal abscess with debridement of necrotic infected tissues. abdominal washout and drain placement ARF -resolved hyperkalemia-resolved rhabdo-resolved acute on chronic constipation ? 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 prn IS while in the bed and encourage to use, O2 HHN prn OOB as tolerated with PT/OT, encourage ambulation wound care DVT GI prophylaxis colostomy care GI follows ARF resolved, monitor renal parameters, lytes, correct as needed, avoid nephrotoxic nephro follows college admissions counselor on abstinence from street drugs college admissions counselor on abstinence from smoking declined nicotine patch psych follows psych meds as per psych recs initially: troponin x 2 negative, no acute ischemic changes on ECF/tele , thus no evidence of acute [place] cardio eval appreciated O2 HHN prn Venous Duplex BLE negative stat CTA chest done 07/08 with evidence perforation of hollow viscus with extensive amount of free air in the upper abdomen and some free fluid is well.; no evidence of PE inial surgery 07/09 ECHO with pEF case discussed and evaluated by supervising physician Subjective Allergies: Coded Allergies: No Known Allergies (Unverified , 01/20/17) Subjective no leucocytosis, afebrile eats small amounts Objective Last 24 Hour Vital Signs Date Time Temp Pulse Resp B/P (MAP) Pulse Ox O2 Delivery O2 Flow Rate FiO2 07/29/17 08:09 18 07/29/17 08:00 97.7 126 20 122/72 92 Room Air 97.7 07/29/17 05:37 95 Room Air 07/29/17 04:07 18 07/29/17 04:00 98.2 112 17 110/73 91 Room Air 98.2 07/29/17 02:12 99.7 07/29/17 01:44 93 Room Air 07/29/17 01:42 99.7 07/29/17 01:26 18 07/29/17 00:00 99.1 98 21 108/70 90 Room Air 99.1 07/28/17 23:48 99.7 07/28/17 23:17 99.7 07/28/17 22:52 18 07/28/17 22:47 99.7 07/28/17 20:19 18 07/28/17 20:00 99.7 108 18 110/65 92 Room Air 99.7 07/28/17 20:00 Room Air 07/28/17 19:24 Nasal Cannula 1.0 24 07/28/17 19:24 97 Nasal Cannula 2.0 28 07/28/17 16:00 20 07/28/17 15:49 97.9 109 20 111/75 93 97.9 07/28/17 12:00 18 07/28/17 12:00 97.1 97 20 111/70 96 97.1 Intake and Output 07/28/17 07/29/17 19:00 07:00 Intake Total 1455 ml 770 ml Output Total 458 ml 1175 ml Balance 997 ml -405 ml Intake Oral 720 ml 240 ml IV Total 735 ml 530 ml Output Urine Total 450 ml 1000 ml Stool Total 160 ml Drainage Total 8 ml 15 ml Objective General Appearance: no acute distress, A/A/O x 3 male HEENT: normocephalic, atraumatic, anicteric Respiratory/Chest: lungs clear, no respiratory distress Cardiovascular: normal rate, no JVD Abdomen: normal bowel sounds, Colostomy with stool, 2 ALIA drains with serosanguineous drainage, dressing C/D/I Extremities: no edema, pedal pulses normal Neurologic/Psychiatric: alert, oriented x 3, responsive Musculoskeletal: normal muscle bulk Laboratory Tests 07/29/17 08:00: White Blood Count 9.8, Red Blood Count 3.61L, Hemoglobin 10.9L, Hematocrit 32.3L , Mean Corpuscular Volume 90, Mean Corpuscular Hemoglobin 30.1, Mean Corpuscular Hemoglobin Concent 33.6, Red Cell Distribution Width 13.2, Platelet Count 413, Mean Platelet Volume 4.8L, Neutrophils (%) (Auto) 82.6H, Lymphocytes (%) (Auto) 10.8L, Monocytes (%) (Auto) 5.1, Eosinophils (%) (Auto) 0.9, Basophils (%) (Auto) 0.7, Sodium Level 135L, Potassium Level 4.2, Chloride Level 97L, Carbon Dioxide Level 34H, Anion Gap 4L, Blood Urea Nitrogen 4L, Creatinine 0.7, Estimat Glomerular Filtration Rate > 60, Glucose Level 126H, Calcium Level 8.1L Current Medications Medications (Trade) Dose Ordered Sig/Kayy Route PRN Reason Start Time Stop Time Status Last Admin Dose Admin Acetaminophen (Tylenol) 650 mg Q6H PRN ORAL Mild Pain/Temp > 100.5 07/14/17 19:00 08/13/17 18:59 07/21/17 12:18 Ampicillin 2 gm/ Sodium Chloride 110 ml @ 220 mls/hr EVERY 6 HOURS IVPB 07/21/17 18:30 08/01/17 18:29 07/29/17 05:35 Calcium Carbonate (Tums) 1,000 mg Q4H PRN ORAL HEARTBURN/INDIGESTION 07/20/17 18:00 08/19/17 17:59 07/25/17 05:57 Dextrose (Dextrose 50%) STAT PRN IV Hypoglycemia 07/11/17 20:30 08/10/17 20:29 Diphenhydramine HCl (Benadryl) 25 mg Q6H PRN IVP Itching 07/25/17 17:00 08/24/17 16:59 07/29/17 06:29 Finasteride (Proscar) 5 mg DAILY ORAL 07/13/17 09:00 08/12/17 08:59 07/28/17 08:43 Fluconazole/ Sodium Chloride 100 ml @ 100 mls/hr Q24H IV 07/20/17 14:00 08/01/17 13:59 07/28/17 13:44 Heparin Sodium (Porcine) (Heparin 5000 units/ml) 5,000 units EVERY 12 HOURS SUBQ 3/7/18 21:00 08/02/17 08:59 07/28/17 21:34 Hydromorphone HCl (Dilaudid) 2 mg Q4H PRN IVP PAIN 4-10 07/29/17 09:01 08/05/17 09:00 Lansoprazole (Prevacid) 30 mg DAILY ORAL 07/12/17 09:00 08/11/17 08:59 07/28/17 08:43 Linezolid (Zyvox) 600 mg EVERY 12 HOURS ORAL 07/23/17 21:00 08/03/17 20:59 07/28/17 21:31 Meropenem 1 gm/ Sodium Chloride 110 ml @ 220 mls/hr Q8HR@0300,1100,1900 IVPB 07/28/17 19:00 08/02/17 18:59 07/29/17 03:03 Nitroglycerin (Ntg) 0.4 mg Q5MIN X 3 DOSES PRN SL Prn Chest Pain 07/11/17 20:32 08/09/17 20:31 Ondansetron HCl (Zofran) 4 mg Q6H PRN IVP Nausea & Vomiting 07/11/17 20:32 08/10/17 20:31 07/28/17 17:23 Potassium Chloride (K-Dur) 40 meq DAILY ORAL 07/20/17 09:00 08/19/17 08:59 07/28/17 08:43 Risperidone (RisperDAL) 4 mg BEDTIME ORAL 07/23/17 21:00 08/22/17 20:59 07/28/17 21:31 Sodium Chloride 1,000 ml @ 50 mls/hr Q20H IV 07/20/17 12:54 08/19/17 12:53 07/28/17 15:54 Temazepam (Restoril) 15 mg HSPRN PRN ORAL Insomnia 07/25/17 00:15 08/01/17 00:14 07/25/17 20:20 Clay HoskinsGabbi urena NP Jul 29, 2017 10:19
[2017-07-29] MEDS: Heparin 5000 units/ml inj SUBQ SCH ×2 (10:27→20:01)
--- NOTE | 2017-07-29 10:51 | General Progress Note ---
Progress Note Progress Note Condition remains stable with satisfactory po intake and wound care by RNs. Abdomen soft, wound clean and granulating ALIA drains down to 23ml/24 hours lmp: Stable Plan: continue current regimen RALPH ALVARADO Jul 29, 2017 10:51
[2017-07-29 12:00] VITALS: BP 110/76
[2017-07-29 16:00] VITALS: BP 109/67
[2017-07-29 20:00] VITALS: BP 118/77
[2017-07-30] VITALS: BP 121/79
[2017-07-30] MEDS: DiphenhydrAMINE 50mg/ml Inj IVP PRN ×2 (02:04→18:41)
[2017-07-30] MEDS: Tums 500mg ORAL PRN (02:04)
[2017-07-30] MEDS: Meropenem 1 GM in NS 110 ML IVPB SCH ×3 (02:13→18:41)
[2017-07-30] MEDS: Ampicillin 2 GM in NS 110 ML IVPB SCH ×2 (05:04→11:10)
[2017-07-30 07:15] LABS: ANION GAP 4 mmol/L (5-15); BLOOD UREA NITROGEN 5 mg/dL (7-18); CALCIUM 8.1 MG/DL (8.5-10.1); CARBON DIOXIDE 34 MMOL/L (21-32); CHLORIDE 98 MMOL/L (98-107); CREATININE 0.6 MG/DL (0.55-1.30); SODIUM 136 MMOL/L (136-145)
[2017-07-30 07:16] LABS: HEMOGLOBIN 9.6 G/DL (14.2-18.0); MEAN CORPUSCULAR VOLUME 90 FL (80-99); PLATELET COUNT 374 K/UL (150-450); RED BLOOD COUNT 3.12 M/UL (4.70-6.10); RED CELL DISTRIBUTION WIDTH 13.1 % (11.6-14.8); WHITE BLOOD COUNT 12.7 K/UL (4.8-10.8)
[2017-07-30 08:00] VITALS: BP 116/62
[2017-07-30] MEDS: Heparin 5000 units/ml inj SUBQ SCH ×2 (08:51→22:31)
--- NOTE | 2017-07-30 08:58 | Pulmonology Progress Note ---
Assessment/Plan Assessment/Plan ASSESSMENT perforation of viscus pneumoperitoneum pleuritic chest pain ( likely due to perforated viscus) -perforated left colon with prolonged inflammatory reaction, gross spillage, and bowel ischemia. -Intra-abdominal abscess. s/p 3/ Exploratory laparotomy, extended left colectomy, transverse colostomy creation, evacuation of intra-abdominal abscess, abdominal washout with drain placement. s/p 07/19 aspiration and drainage of intraperitoneal fluid collection by IR- 150cc Large complex intra-abdominal abscess Midline wound dehiscence. s/p 07/20 Exploratory laparotomy with evacuation of intra-abdominal abscess with debridement of necrotic infected tissues. abdominal washout and drain placement ARF -resolved hyperkalemia-resolved rhabdo-resolved acute on chronic constipation ? 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, pain controlled IS while in the bed and encourage to use, O2 HHN prn OOB as tolerated with PT/OT, encourage ambulation- unwilling to ambulate wound care DVT GI prophylaxis colostomy care GI follows ARF resolved, monitor renal parameters, lytes, correct as needed, avoid nephrotoxic nephro follows school adjustment counselor on abstinence from street drugs school adjustment counselor on abstinence from smoking declined nicotine patch psych follows psych meds as per psych recs initially: troponin x 2 negative, no acute ischemic changes on ECF/tele , thus no evidence of acute AL cardio eval appreciated O2 HHN prn Venous Duplex BLE negative stat CTA chest done 07/08 with evidence perforation of hollow viscus with extensive amount of free air in the upper abdomen and some free fluid is well.; no evidence of PE inial surgery 07/09 ECHO with pEF case discussed and evaluated by supervising physician Subjective Allergies: Coded Allergies: No Known Allergies (Unverified , 01/20/17) Subjective mild leucocytosis today , afebrile off 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 Last 24 Hour Vital Signs Date Time Temp Pulse Resp B/P (MAP) Pulse Ox O2 Delivery O2 Flow Rate FiO2 07/30/17 08:50 96.7 07/30/17 08:00 96.7 107 18 116/62 92 Room Air 96.7 07/30/17 04:34 97.9 07/30/17 04:04 97.9 07/30/17 00:08 97.9 07/30/17 00:00 97.9 114 20 121/79 95 Room Air 97.9 07/29/17 20:00 97.9 110 21 118/77 96 Room Air 97.9 07/29/17 19:51 97.9 07/29/17 16:00 97.9 107 18 109/67 95 Room Air 97.9 07/29/17 15:09 97.7 07/29/17 12:00 97.7 110 18 110/76 95 Room Air 97.7 07/29/17 10:44 97.7 Intake and Output 07/29/17 07/30/17 19:00 07:00 Intake Total 905 ml 790 ml Output Total 858 ml 310 ml Balance 47 ml 480 ml Intake Oral 480 ml 440 ml IV Total 425 ml 350 ml Output Urine Total 600 ml Stool Total 250 ml 300 ml Drainage Total 8 ml 10 ml # Voids 3 Objective General Appearance: no acute distress, A/A/O x 3 male HEENT: normocephalic, atraumatic, anicteric Respiratory/Chest: lungs clear, no respiratory distress Cardiovascular: normal rate, no JVD Abdomen: normal bowel sounds, Colostomy with stool, 2 ALIA drains with serosanguineous drainage, dressing C/D/I Extremities: no edema, pedal pulses normal Neurologic/Psychiatric: alert, oriented x 3, responsive Musculoskeletal: normal muscle bulk Laboratory Tests 07/30/17 05:45: White Blood Count 12.7H, Red Blood Count 3.12L, Hemoglobin 9.6L, Hematocrit 28.0L, Mean Corpuscular Volume 90, Mean Corpuscular Hemoglobin 30.8, Mean Corpuscular Hemoglobin Concent 34.3, Red Cell Distribution Width 13.1, Platelet Count 374, Mean Platelet Volume 4.8L, Neutrophils (%) (Auto) , Lymphocytes (%) ( Auto) , Monocytes (%) (Auto) , Eosinophils (%) (Auto) , Basophils (%) (Auto) , Neutrophils % (Manual) [Pending], Lymphocytes % (Manual) [Pending], Platelet Estimate [Pending], Platelet Morphology [Pending], Sodium Level 136, Potassium Level 4.0, Chloride Level 98, Carbon Dioxide Level 34H, Anion Gap 4L, Blood Urea Nitrogen 5L, Creatinine 0.6, Estimat Glomerular Filtration Rate > 60, Glucose Level 114H, Calcium Level 8.1L Current Medications Medications (Trade) Dose Ordered Sig/Kayy Route PRN Reason Start Time Stop Time Status Last Admin Dose Admin Acetaminophen (Tylenol) 650 mg Q6H PRN ORAL Mild Pain/Temp > 100.5 07/14/17 19:00 08/13/17 18:59 07/21/17 12:18 Ampicillin 2 gm/ Sodium Chloride 110 ml @ 220 mls/hr EVERY 6 HOURS IVPB 07/21/17 18:30 08/01/17 18:29 07/30/17 05:04 Calcium Carbonate (Tums) 1,000 mg Q4H PRN ORAL HEARTBURN/INDIGESTION 07/20/17 18:00 08/19/17 17:59 07/30/17 02:04 Dextrose (Dextrose 50%) STAT PRN IV Hypoglycemia 07/11/17 20:30 08/10/17 20:29 Diphenhydramine HCl (Benadryl) 25 mg Q6H PRN IVP Itching 07/25/17 17:00 08/24/17 16:59 07/30/17 02:04 Finasteride (Proscar) 5 mg DAILY ORAL 07/13/17 09:00 08/12/17 08:59 07/30/17 08:48 Fluconazole/ Sodium Chloride 100 ml @ 100 mls/hr Q24H IV 07/20/17 14:00 08/01/17 13:59 07/29/17 14:32 Heparin Sodium (Porcine) (Heparin 5000 units/ml) 5,000 units EVERY 12 HOURS SUBQ 07/11/17 21:00 08/02/17 08:59 07/30/17 08:51 Hydromorphone HCl (Dilaudid) 2 mg Q4H PRN IVP PAIN 4-10 07/29/17 09:01 08/05/17 09:00 07/30/17 08:50 Lansoprazole (Prevacid) 30 mg DAILY ORAL 07/12/17 09:00 08/11/17 08:59 07/30/17 08:48 Linezolid (Zyvox) 600 mg EVERY 12 HOURS ORAL 07/23/17 21:00 08/03/17 20:59 07/30/17 08:50 Meropenem 1 gm/ Sodium Chloride 110 ml @ 220 mls/hr Q8HR@0300,1100,1900 IVPB 07/28/17 19:00 08/02/17 18:59 07/30/17 02:13 Nitroglycerin (Ntg) 0.4 mg Q5MIN X 3 DOSES PRN SL Prn Chest Pain 07/11/17 20:32 08/09/17 20:31 Ondansetron HCl (Zofran) 4 mg Q6H PRN IVP Nausea & Vomiting 07/11/17 20:32 08/10/17 20:31 07/30/17 04:09 Potassium Chloride (K-Dur) 40 meq DAILY ORAL 07/20/17 09:00 08/19/17 08:59 07/30/17 08:49 Risperidone (RisperDAL) 4 mg BEDTIME ORAL 07/23/17 21:00 08/22/17 20:59 07/29/17 19:59 Sodium Chloride 1,000 ml @ 50 mls/hr Q20H IV 07/20/17 12:54 08/19/17 12:53 07/29/17 17:43 Temazepam (Restoril) 15 mg HSPRN PRN ORAL Insomnia 07/25/17 00:15 08/01/17 00:14 07/30/17 02:42 Clay HoskinsGabbi urena NP Jul 30, 2017 08:58
--- NOTE | 2017-07-30 11:53 | GI Progress Note ---
Assessment/Plan Problems: (1) Psychiatric disorder ICD Codes: F99 - Mental disorder, not otherwise specified SNOMED: 22787999, 827965873 (2) Amphetamine abuse ICD Codes: F15.10 - Other stimulant abuse, uncomplicated SNOMED: 91522629 (3) Opiate dependence ICD Codes: F11.20 - Opioid dependence, uncomplicated SNOMED: 34725583 Qualifiers: Qualified Codes: F11.20 - Opioid dependence, uncomplicated (4) Perforated abdominal viscus SNOMED: 313286139 Status: stable, progressing Status Narrative Discussed with Dr. Castro. Assessment/Plan s/p Exploratory laparotomy, partial bowel resection fu surgical recs IVFs diet adv per surgery colostomy care prn transfusions serial imaging prn pain mgmt fu labs Subjective Subjective doing well pain Objective Last 24 Hour Vital Signs Date Time Temp Pulse Resp B/P (MAP) Pulse Ox O2 Delivery O2 Flow Rate FiO2 07/30/17 09:20 96.7 07/30/17 08:50 96.7 07/30/17 08:00 96.7 107 18 116/62 92 Room Air 96.7 07/30/17 04:04 97.9 07/30/17 00:08 97.9 07/30/17 00:00 97.9 114 20 121/79 95 Room Air 97.9 07/29/17 20:00 97.9 110 21 118/77 96 Room Air 97.9 07/29/17 19:51 97.9 07/29/17 16:00 97.9 107 18 109/67 95 Room Air 97.9 07/29/17 15:09 97.7 07/29/17 12:00 97.7 110 18 110/76 95 Room Air 97.7 Intake and Output 07/29/17 07/30/17 19:00 07:00 Intake Total 905 ml 840 ml Output Total 858 ml 310 ml Balance 47 ml 530 ml Intake Oral 480 ml 440 ml IV Total 425 ml 400 ml Output Urine Total 600 ml Stool Total 250 ml 300 ml Drainage Total 8 ml 10 ml # Voids 3 Laboratory Tests Test 07/30/17 05:45 White Blood Count 12.7 K/UL (4.8-10.8) H Red Blood Count 3.12 M/UL (4.70-6.10) L Hemoglobin 9.6 G/DL (14.2-18.0) L Hematocrit 28.0 % (42.0-52.0) L Mean Corpuscular Volume 90 FL (80-99) Mean Corpuscular Hemoglobin 30.8 PG (27.0-31.0) Mean Corpuscular Hemoglobin Concent 34.3 G/DL (32.0-36.0) Red Cell Distribution Width 13.1 % (11.6-14.8) Platelet Count 374 K/UL (150-450) Mean Platelet Volume 4.8 FL (6.5-10.1) L Neutrophils (%) (Auto) % (45.0-75.0) Lymphocytes (%) (Auto) % (20.0-45.0) Monocytes (%) (Auto) % (1.0-10.0) Eosinophils (%) (Auto) % (0.0-3.0) Basophils (%) (Auto) % (0.0-2.0) Differential Total Cells Counted 100 Neutrophils % (Manual) 84 % (45-75) H Lymphocytes % (Manual) 8 % (20-45) L Monocytes % (Manual) 8 % (1-10) Eosinophils % (Manual) 0 % (0-3) Basophils % (Manual) 0 % (0-2) Band Neutrophils 0 % (0-8) Platelet Estimate Adequate Platelet Morphology Normal Hypochromasia 1+ Sodium Level 136 MMOL/L (136-145) Potassium Level 4.0 MMOL/L (3.5-5.1) Chloride Level 98 MMOL/L (98-107) Carbon Dioxide Level 34 MMOL/L (21-32) H Anion Gap 4 mmol/L (5-15) L Blood Urea Nitrogen 5 mg/dL (7-18) L Creatinine 0.6 MG/DL (0.55-1.30) Estimat Glomerular Filtration Rate > 60 mL/min (>60) Glucose Level 114 MG/DL (74-106) H Calcium Level 8.1 MG/DL (8.5-10.1) L Height (Feet): 5 Height (Inches): 9.00 Weight (Pounds): 138 General Appearance: WD/WN, no apparent distress, alert Cardiovascular: normal rate Respiratory/Chest: normal breath sounds, no respiratory distress Abdominal Exam: normal bowel sounds, non tender, soft, other - colostomy Extremities: normal range of motion, non-tender Albarran,Samia Xavier N.P. Jul 30, 2017 11:53
[2017-07-30 12:06] VITALS: BP 118/78
--- NOTE | 2017-07-30 14:47 | General Progress Note ---
Progress Note Progress Note AVSS condition stable Abdomen soft, wound clean and granulating ALIA drains output decreased 18cc/24 hours WBC up 12,700 Imp. Stable Plan; Will need f/u CT scan if WBC rising f/u labs in RALPH LUCERO Jul 30, 2017 14:46
[2017-07-30] MEDS: Norco 5mg/325mg tab ORAL PRN ×2 (14:57→18:41)
[2017-07-30 16:09] VITALS: BP 112/78
--- NOTE | 2017-07-30 16:28 | Infectious Diseases Prog Note ---
Assessment/Plan Assessment/Plan ASSESSMENT: The patient is a 46-year-old male with; Bowel perf w/ development of 2 Abscess (subphrenic and pelvic) Cx: E coli( ESBL) and ENTEROCOCCUS AVIUM (turcios S) and Bact Fragilis - Repeat CT with persistent LUQ fluid collection and 2 other fluid collections; former suspect still residual abscess; latter 2 possible sterile vs infected s/p second exp lap and abscess draiange -s/p exploratory laparotomy, abdominal washout, evacuation of abscess, drain placement and abdominal closure 07/20; cx p -s/p CT guided drainage APOLLO fluid collection 07/19: Aspiration and drainage of left upper quadrant collection, yielding 150 mL of carin pus. Note that the collection could only be partially evacuated, however, despite confirmation of apparent adequate position of the drain.This may indicate high viscosity of the contents; cx E. fecalis (turcios S), PREVOTELLA LOESCHEII (Aumgentin, Clinda R; Metronidazole S) s/p ex lap with left colectomy and transverse colostomy for perforated left colon, evacuation of intrabd abscess, abd washout w/ drain placement 07/09 -CT abd/p w/ 07/18: Postsurgical changes, as described, status post transverse colectomy, Jazz procedure, and placement of multiple surgical drains. Left upper quadrant intraperitoneal fluid collection, despite the presence of a surgical drain in the center of the collection. The presence of gas bubbles within rather than floating nondependently in the collection indicate that this fluid may be viscous. 2 other significant intraperitoneal collections,which do not appear to communicate, possibly loculated. Given presence of somewhat thick enhancing rim surrounding all of these, infected collections are certainly possible ( left paracolic gutter 5.8 cmx 4.3 cm x 8.3cm and R paracolic gutter, medial and inferior to tip R hepatic lobe 8cm x 6.4cm x8cm). Other than the gas within the left upper quadrant collection, previously demonstrated pneumoperitoneum has largely resolved. Left upper quadrant thick walled small bowel loops. Possibly reactive due to adjacent inflammation, enteritis is also possible. No evidence of bowel obstruction. Gallbladder wall edema versus pericholecystic fluid. -OR findings: The omentum was significantly thickened and adhesed to the small bowel and into the left lower quadrant. There was significant inflammatory process throughout the abdomen including a thickening of almost the entire peritoneal lining. The proximal portion of the jejunum was significantly thickened and had a rind of inflammatory infectious tissue on it. left transverse and descending colon, there was significant amount of thickening and significant disease process with some areas of mild ischemia noted and in the descending colon around the descending and sigmoid junction, there was a gross perforation with grossspillage of bowel contents noted in the area. there was a fluid collection/pelvic abscess, which was evacuated. There was a fluid collection in the right upper quadrant around the liver, which was evacuated and a large left upper quadrant subphrenic abscess with significant tissue rind and thickening around the stomach, spleen, peritoneum, and diaphragm in that location. CT : Evidence of perforation of hollow viscus with extensive amount of free air in the upper abdomen and some free fluid is well. Fever/Leukocytosis, fever resolved; leukocytosis mild recurrent- -Bcx NTD Elevated ALP -Abd US: Negative for gallstones. There is borderline gallbladder wall thickening, however. Most likely, this is reactive secondary to surrounding inflammation related to recent bowel perforation and surgery for such. However, the possibility of acalculous acute cholecystitis should be considered, and consideration for nuclear medicine hepatobiliary scanning if there is high clinical suspicion history of diarrhea, SP RAMSEY: Improved HTN COPD/asthma. Smoker. History of chronic constipation. Osteoarthritis. ? CAD/UT, hx PLAN: -Continue IV Meropenem abx d#20 and IV Ampicillin(abx d#14 for enterococcal coverage) for intraabdominal abscess -Continue Fluconazole #10 -Continue empiric PO linezolid #8 given recurrent of murky fluid for MRSA and nocardia coverage empirically -plan to treat for 2-4 weeks from 07/20 --07/21 Zosyn #4 --3/14 SP Ertapenem, PO Amoxicillin #3 --3/12 SP Cefepime #2 --3/8 SP Zosyn d# 6 --SP Rocephin d# 5 -Trend WBC -low threshold to re-image if worsening WBC, fevers, abd pain -Requested micro lab to add fungal, nocardia and AFB cx to latest cultures -f/u CT guided drainage and OR cx -surgery following -wound care -Trend WBC monitor chest x-ray. Nephrology, following Monitor ( Blood ) Cx Discussed with RN Subjective Allergies: Coded Allergies: No Known Allergies (Unverified , 01/20/17) Subjective afebrile mild leukocytosis Objective Vital Signs Last 24 Hour Vital Signs Date Time Temp Pulse Resp B/P (MAP) Pulse Ox O2 Delivery O2 Flow Rate FiO2 07/30/17 16:09 98.2 109 18 112/78 95 Room Air 98.2 07/30/17 15:56 97.0 07/30/17 14:57 97.0 07/30/17 13:19 97.0 07/30/17 12:49 97.0 07/30/17 12:06 97.0 108 18 118/78 95 Room Air 97.0 07/30/17 08:50 96.7 07/30/17 08:00 96.7 107 18 116/62 92 Room Air 96.7 07/30/17 04:04 97.9 07/30/17 00:08 97.9 07/30/17 00:00 97.9 114 20 121/79 95 Room Air 97.9 07/29/17 20:00 97.9 110 21 118/77 96 Room Air 97.9 07/29/17 19:51 97.9 Height (Feet): 5 Height (Inches): 9.00 Weight (Pounds): 138 Objective General Appearance: WD/WN, no apparent distress, alert, thin Cardiovascular: normal rate Respiratory/Chest: normal breath sounds, no respiratory distress Abdominal Exam: normal bowel sounds, non tender, soft, other - colostomy Extremities: non-tender Laboratory Tests Test 07/30/17 05:45 White Blood Count 12.7 K/UL (4.8-10.8) H Red Blood Count 3.12 M/UL (4.70-6.10) L Hemoglobin 9.6 G/DL (14.2-18.0) L Hematocrit 28.0 % (42.0-52.0) L Mean Corpuscular Volume 90 FL (80-99) Mean Corpuscular Hemoglobin 30.8 PG (27.0-31.0) Mean Corpuscular Hemoglobin Concent 34.3 G/DL (32.0-36.0) Red Cell Distribution Width 13.1 % (11.6-14.8) Platelet Count 374 K/UL (150-450) Mean Platelet Volume 4.8 FL (6.5-10.1) L Neutrophils (%) (Auto) % (45.0-75.0) Lymphocytes (%) (Auto) % (20.0-45.0) Monocytes (%) (Auto) % (1.0-10.0) Eosinophils (%) (Auto) % (0.0-3.0) Basophils (%) (Auto) % (0.0-2.0) Differential Total Cells Counted 100 Neutrophils % (Manual) 84 % (45-75) H Lymphocytes % (Manual) 8 % (20-45) L Monocytes % (Manual) 8 % (1-10) Eosinophils % (Manual) 0 % (0-3) Basophils % (Manual) 0 % (0-2) Band Neutrophils 0 % (0-8) Platelet Estimate Adequate Platelet Morphology Normal Hypochromasia 1+ Sodium Level 136 MMOL/L (136-145) Potassium Level 4.0 MMOL/L (3.5-5.1) Chloride Level 98 MMOL/L (98-107) Carbon Dioxide Level 34 MMOL/L (21-32) H Anion Gap 4 mmol/L (5-15) L Blood Urea Nitrogen 5 mg/dL (7-18) L Creatinine 0.6 MG/DL (0.55-1.30) Estimat Glomerular Filtration Rate > 60 mL/min (>60) Glucose Level 114 MG/DL (74-106) H Calcium Level 8.1 MG/DL (8.5-10.1) L Current Medications Medications (Trade) Dose Ordered Sig/Kayy Route PRN Reason Start Time Stop Time Status Last Admin Dose Admin Acetaminophen (Tylenol) 650 mg Q6H PRN ORAL Mild Pain/Temp > 100.5 07/14/17 19:00 08/13/17 18:59 07/21/17 12:18 Acetaminophen/ Hydrocodone Bitart ([place] 5/325) 1 tab Q4H PRN ORAL Moderate Pain (Pain Scale 4-6) 07/30/17 09:00 08/06/17 08:59 07/30/17 14:57 Ampicillin 2 gm/ Dextrose 110 ml @ 220 mls/hr EVERY 6 HOURS IVPB 07/30/17 18:00 08/06/17 17:59 Ampicillin 2 gm/ Sodium Chloride 110 ml @ 220 mls/hr EVERY 6 HOURS IVPB 07/21/17 18:30 07/30/17 17:59 07/30/17 11:10 Calcium Carbonate (Tums) 1,000 mg Q4H PRN ORAL HEARTBURN/INDIGESTION 07/20/17 18:00 08/19/17 17:59 07/30/17 02:04 Dextrose (Dextrose 50%) STAT PRN IV Hypoglycemia 07/11/17 20:30 08/10/17 20:29 Diphenhydramine HCl (Benadryl) 25 mg Q6H PRN IVP Itching 07/25/17 17:00 08/24/17 16:59 07/30/17 02:04 Finasteride (Proscar) 5 mg DAILY ORAL 07/13/17 09:00 08/12/17 08:59 07/30/17 08:48 Fluconazole/ Sodium Chloride 100 ml @ 100 mls/hr Q24H IV 07/20/17 14:00 08/01/17 13:59 07/30/17 12:48 Heparin Sodium (Porcine) (Heparin 5000 units/ml) 5,000 units EVERY 12 HOURS SUBQ 07/11/17 21:00 08/02/17 08:59 07/30/17 08:51 Hydromorphone HCl (Dilaudid) 2 mg Q4H PRN IVP PAIN 4-10 07/29/17 09:01 08/05/17 09:00 07/30/17 12:49 Lansoprazole (Prevacid) 30 mg DAILY ORAL 07/12/17 09:00 08/11/17 08:59 07/30/17 08:48 Linezolid (Zyvox) 600 mg EVERY 12 HOURS ORAL 07/23/17 21:00 08/03/17 20:59 07/30/17 08:50 Meropenem 1 gm/ Sodium Chloride 110 ml @ 220 mls/hr Q8HR@0300,1100,1900 IVPB 07/28/17 19:00 08/02/17 18:59 07/30/17 10:11 Nitroglycerin (Ntg) 0.4 mg Q5MIN X 3 DOSES PRN SL Prn Chest Pain 07/11/17 20:32 08/09/17 20:31 Ondansetron HCl (Zofran) 4 mg Q6H PRN IVP Nausea & Vomiting 07/11/17 20:32 08/10/17 20:31 07/30/17 11:13 Potassium Chloride (K-Dur) 40 meq DAILY ORAL 07/20/17 09:00 08/19/17 08:59 07/30/17 08:49 Risperidone (RisperDAL) 4 mg BEDTIME ORAL 07/23/17 21:00 08/22/17 20:59 07/29/17 19:59 Sodium Chloride 1,000 ml @ 50 mls/hr Q20H IV 07/20/17 12:54 08/19/17 12:53 07/29/17 17:43 Temazepam (Restoril) 15 mg HSPRN PRN ORAL Insomnia 07/25/17 00:15 08/01/17 00:14 07/30/17 02:42 Chhaya Menendez M.D. Jul 30, 2017 16:28
--- NOTE | 2017-07-30 16:48 | Nephrology Progress Note ---
Assessment/Plan Problem List: (1) ARF (acute renal failure) (2) UTI (urinary tract infection) (3) Psychiatric disorder (4) Acute abdomen Assessment Status: WBCs wnl had multi abdominal drains acute renal failure- extended left colectomy due to perf transverse colostomy creation Plan Plan: per charles, 07/20/17 Mag and K supplement as needed DC horan DC IV PT advance diet Post op ( OP 07/08/17) Horan- 2D echo normal Ej Fx Albumin bollous monitor renal parameters K and Phos and Mag supplement as needed Subjective ROS Limited/Unobtainable: No Objective Objective Last 24 Hour Vital Signs Date Time Temp Pulse Resp B/P (MAP) Pulse Ox O2 Delivery O2 Flow Rate FiO2 07/30/17 16:09 98.2 109 18 112/78 95 Room Air 98.2 07/30/17 15:56 97.0 07/30/17 14:57 97.0 07/30/17 13:19 97.0 07/30/17 12:49 97.0 07/30/17 12:06 97.0 108 18 118/78 95 Room Air 97.0 07/30/17 08:50 96.7 07/30/17 08:00 96.7 107 18 116/62 92 Room Air 96.7 07/30/17 04:04 97.9 07/30/17 00:08 97.9 07/30/17 00:00 97.9 114 20 121/79 95 Room Air 97.9 07/29/17 20:00 97.9 110 21 118/77 96 Room Air 97.9 07/29/17 19:51 97.9 Intake and Output 07/29/17 07/30/17 19:00 07:00 Intake Total 905 ml 840 ml Output Total 858 ml 310 ml Balance 47 ml 530 ml Intake Oral 480 ml 440 ml IV Total 425 ml 400 ml Output Urine Total 600 ml Stool Total 250 ml 300 ml Drainage Total 8 ml 10 ml # Voids 3 Laboratory Tests 07/30/17 05:45: White Blood Count 12.7H, Red Blood Count 3.12L, Hemoglobin 9.6L, Hematocrit 28.0L, Mean Corpuscular Volume 90, Mean Corpuscular Hemoglobin 30.8, Mean Corpuscular Hemoglobin Concent 34.3, Red Cell Distribution Width 13.1, Platelet Count 374, Mean Platelet Volume 4.8L, Neutrophils (%) (Auto) , Lymphocytes (%) ( Auto) , Monocytes (%) (Auto) , Eosinophils (%) (Auto) , Basophils (%) (Auto) , Differential Total Cells Counted 100, Neutrophils % (Manual) 84H, Lymphocytes % (Manual) 8L, Monocytes % (Manual) 8, Eosinophils % (Manual) 0, Basophils % ( Manual) 0, Band Neutrophils 0, Platelet Estimate Adequate, Platelet Morphology Normal, Hypochromasia 1+, Sodium Level 136, Potassium Level 4.0, Chloride Level 98, Carbon Dioxide Level 34H, Anion Gap 4L, Blood Urea Nitrogen 5L, Creatinine 0.6, Estimat Glomerular Filtration Rate > 60, Glucose Level 114H, Calcium Level 8.1L Height (Feet): 5 Height (Inches): 9.00 Weight (Pounds): 138 General Appearance: no apparent distress Abdomen: distended Objective no other change NOEMY MARK Jul 30, 2017 16:48
[2017-07-30] MEDS: D5W IVPB SCH ×2 (16:49→22:22)
[2017-07-30] MEDS: AMPICILLIN IVPB SCH ×2 (16:49→22:22)
--- NOTE | 2017-07-30 19:00 | General Progress Note ---
Assessment/Plan Assessment/Plan Schizophrenia CPT Encephalopathy PLAN: - increase the risperidone to 4 mg at bedtime. Subjective Date patient seen: Jul 30, 2017 Allergies: Coded Allergies: No Known Allergies (Unverified , 01/20/17) Subjective the pt is calmer more organized. not motivated low energy Objective Last 24 Hour Vital Signs Date Time Temp Pulse Resp B/P (MAP) Pulse Ox O2 Delivery O2 Flow Rate FiO2 07/30/17 18:41 98.2 07/30/17 17:20 98.2 07/30/17 16:50 98.2 07/30/17 16:09 98.2 109 18 112/78 95 Room Air 98.2 07/30/17 15:56 97.0 07/30/17 14:57 97.0 07/30/17 12:49 97.0 07/30/17 12:06 97.0 108 18 118/78 95 Room Air 97.0 07/30/17 08:50 96.7 07/30/17 08:00 96.7 107 18 116/62 92 Room Air 96.7 07/30/17 04:04 97.9 07/30/17 00:08 97.9 07/30/17 00:00 97.9 114 20 121/79 95 Room Air 97.9 07/29/17 20:00 97.9 110 21 118/77 96 Room Air 97.9 07/29/17 19:51 97.9 Intake and Output 07/29/17 07/30/17 19:00 07:00 Intake Total 905 ml 840 ml Output Total 858 ml 310 ml Balance 47 ml 530 ml Intake Oral 480 ml 440 ml IV Total 425 ml 400 ml Output Urine Total 600 ml Stool Total 250 ml 300 ml Drainage Total 8 ml 10 ml # Voids 3 Laboratory Tests 07/30/17 05:45: White Blood Count 12.7H, Red Blood Count 3.12L, Hemoglobin 9.6L, Hematocrit 28.0L, Mean Corpuscular Volume 90, Mean Corpuscular Hemoglobin 30.8, Mean Corpuscular Hemoglobin Concent 34.3, Red Cell Distribution Width 13.1, Platelet Count 374, Mean Platelet Volume 4.8L, Neutrophils (%) (Auto) , Lymphocytes (%) ( Auto) , Monocytes (%) (Auto) , Eosinophils (%) (Auto) , Basophils (%) (Auto) , Differential Total Cells Counted 100, Neutrophils % (Manual) 84H, Lymphocytes % (Manual) 8L, Monocytes % (Manual) 8, Eosinophils % (Manual) 0, Basophils % ( Manual) 0, Band Neutrophils 0, Platelet Estimate Adequate, Platelet Morphology Normal, Hypochromasia 1+, Sodium Level 136, Potassium Level 4.0, Chloride Level 98, Carbon Dioxide Level 34H, Anion Gap 4L, Blood Urea Nitrogen 5L, Creatinine 0.6, Estimat Glomerular Filtration Rate > 60, Glucose Level 114H, Calcium Level 8.1L Height (Feet): 5 Height (Inches): 9.00 Weight (Pounds): 138 Idalia Montanez M.D. Jul 30, 2017 19:00
[2017-07-30 20:00] VITALS: BP 118/71
[2017-07-31] VITALS (7 sets, daily range): BP systolic 101–116; BP diastolic 61–82
[2017-07-31] MEDS: Meropenem 1 GM in NS 110 ML IVPB SCH ×2 (01:48→11:30)
[2017-07-31] MEDS: Norco 5mg/325mg tab ORAL PRN ×5 (01:48→23:19)
[2017-07-31] MEDS: DiphenhydrAMINE 50mg/ml Inj IVP PRN ×3 (02:05→18:27)
[2017-07-31] MEDS: D5W IVPB SCH ×4 (05:49→23:19)
[2017-07-31] MEDS: AMPICILLIN IVPB SCH ×4 (05:49→23:19)
[2017-07-31] MEDS: Heparin 5000 units/ml inj SUBQ SCH ×2 (08:31→20:58)
--- NOTE | 2017-07-31 09:47 | GI Progress Note ---
Assessment/Plan Problems: (1) Psychiatric disorder ICD Codes: F99 - Mental disorder, not otherwise specified SNOMED: 67116841, 222375632 (2) Amphetamine abuse ICD Codes: F15.10 - Other stimulant abuse, uncomplicated SNOMED: 93226647 (3) Opiate dependence ICD Codes: F11.20 - Opioid dependence, uncomplicated SNOMED: 63919517 Qualifiers: Qualified Codes: F11.20 - Opioid dependence, uncomplicated (4) Perforated abdominal viscus SNOMED: 227891070 Status: progressing Status Narrative Discussed with Dr. Castro. Assessment/Plan s/p Exploratory laparotomy, partial bowel resection fu surgical recs IVFs diet adv per surgery colostomy care prn transfusions serial imaging prn pain mgmt fu labs Subjective Subjective doing well abdominal pain Objective Last 24 Hour Vital Signs Date Time Temp Pulse Resp B/P (MAP) Pulse Ox O2 Delivery O2 Flow Rate FiO2 07/31/17 08:45 98.5 07/31/17 08:15 98.5 07/31/17 08:00 97.9 108 16 101/66 96 97.9 07/31/17 06:48 98.5 07/31/17 05:49 98.5 07/31/17 04:00 97.8 105 20 105/68 95 Room Air 97.8 07/31/17 01:48 98.5 07/31/17 00:00 98.5 100 17 116/82 98.5 07/30/17 22:23 98.6 07/30/17 20:00 98.6 114 19 118/71 95 98.6 07/30/17 18:41 98.2 07/30/17 16:50 98.2 07/30/17 16:09 98.2 109 18 112/78 95 Room Air 98.2 07/30/17 14:57 97.0 07/30/17 12:49 97.0 07/30/17 12:06 97.0 108 18 118/78 95 Room Air 97.0 Intake and Output 07/30/17 07/31/17 19:00 07:00 Intake Total 670 ml 1130 ml Output Total 30 ml 65 ml Balance 640 ml 1065 ml Intake Oral 240 ml IV Total 670 ml 890 ml Stool Total 50 ml Drainage Total 30 ml 15 ml # Voids 2 Height (Feet): 5 Height (Inches): 9.00 Weight (Pounds): 139 General Appearance: WD/WN, no apparent distress, alert Cardiovascular: normal rate Respiratory/Chest: normal breath sounds, no respiratory distress Abdominal Exam: normal bowel sounds, non tender, soft, other - colostomy Extremities: normal range of motion, non-tender Samia Albarran N.P. Jul 31, 2017 09:47
--- NOTE | 2017-07-31 10:23 | Pulmonology Progress Note ---
Assessment/Plan Assessment/Plan ASSESSMENT perforation of viscus pneumoperitoneum pleuritic chest pain ( likely due to perforated viscus) -perforated left colon with prolonged inflammatory reaction, gross spillage, and bowel ischemia. -Intra-abdominal abscess. s/p 07/08 Exploratory laparotomy, extended left colectomy, transverse colostomy creation, evacuation of intra-abdominal abscess, abdominal washout with drain placement. s/p 07/19 aspiration and drainage of intraperitoneal fluid collection by IR- 150cc Large complex intra-abdominal abscess Midline wound dehiscence. s/p 07/20 Exploratory laparotomy with evacuation of intra-abdominal abscess with debridement of necrotic infected tissues. abdominal washout and drain placement ARF -resolved hyperkalemia-resolved rhabdo-resolved acute on chronic constipation ? 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- on IV Dilaudid prn, and Merom prn for breakthrough pain ; pain controlled IS while in the bed and encourage to use, O2 HHN prn OOB as tolerated with PT/OT, encourage ambulation- unwilling to ambulate wound care DVT GI prophylaxis colostomy care GI follows ARF resolved, monitor renal parameters, lytes, correct as needed, avoid nephrotoxic nephro follows litigation counsel on abstinence from street drugs litigation counsel on abstinence from smoking declined nicotine patch psych follows psych meds as per psych recs initially: troponin x 2 negative, no acute ischemic changes on ECF/tele , thus no evidence of acute OR cardio eval appreciated O2 HHN prn Venous Duplex BLE negative stat CTA chest done 07/08 with evidence perforation of hollow viscus with extensive amount of free air in the upper abdomen and some free fluid is well.; no evidence of PE inial surgery 07/09 ECHO with pEF case discussed and evaluated by supervising physician Subjective Allergies: Coded Allergies: No Known Allergies (Unverified , 01/20/17) Subjective mild leucocytosis 07/30 , afebrile off MUD TRUCKER pain controlled labs pending for this am Objective Last 24 Hour Vital Signs Date Time Temp Pulse Resp B/P (MAP) Pulse Ox O2 Delivery O2 Flow Rate FiO2 07/31/17 08:45 98.5 07/31/17 08:15 98.5 07/31/17 08:00 97.9 108 16 101/66 96 97.9 07/31/17 07:15 Nasal Cannula 2.0 28 07/31/17 07:15 96 Nasal Cannula 2.0 28 07/31/17 06:48 98.5 07/31/17 05:49 98.5 07/31/17 04:00 97.8 105 20 105/68 95 Room Air 97.8 07/31/17 01:48 98.5 07/31/17 00:00 98.5 100 17 116/82 98.5 07/30/17 22:23 98.6 07/30/17 20:00 98.6 114 19 118/71 95 98.6 07/30/17 18:41 98.2 07/30/17 16:50 98.2 07/30/17 16:09 98.2 109 18 112/78 95 Room Air 98.2 07/30/17 14:57 97.0 07/30/17 12:49 97.0 07/30/17 12:06 97.0 108 18 118/78 95 Room Air 97.0 Intake and Output 07/30/17 07/31/17 19:00 07:00 Intake Total 670 ml 1130 ml Output Total 30 ml 65 ml Balance 640 ml 1065 ml Intake Oral 240 ml IV Total 670 ml 890 ml Stool Total 50 ml Drainage Total 30 ml 15 ml # Voids 2 Objective General Appearance: no acute distress, A/A/O x 3 male HEENT: normocephalic, atraumatic, anicteric Respiratory/Chest: lungs clear, no respiratory distress Cardiovascular: normal rate, no JVD Abdomen: normal bowel sounds, Colostomy with stool, 2 ALIA drains with serosanguineous drainage, dressing C/D/I Extremities: no edema, pedal pulses normal Neurologic/Psychiatric: alert, oriented x 3, responsive Musculoskeletal: normal muscle bulk Current Medications Medications (Trade) Dose Ordered Sig/Kayy Route PRN Reason Start Time Stop Time Status Last Admin Dose Admin Acetaminophen (Tylenol) 650 mg Q6H PRN ORAL Mild Pain/Temp > 100.5 07/14/17 19:00 08/13/17 18:59 07/21/17 12:18 Acetaminophen/ Hydrocodone Bitart (Merom 5/325) 1 tab Q4H PRN ORAL Moderate Pain (Pain Scale 4-6) 07/30/17 09:00 08/06/17 08:59 07/31/17 05:49 Ampicillin 2 gm/ Dextrose 110 ml @ 220 mls/hr EVERY 6 HOURS IVPB 07/30/17 18:00 08/06/17 17:59 07/31/17 05:49 Calcium Carbonate (Tums) 1,000 mg Q4H PRN ORAL HEARTBURN/INDIGESTION 07/20/17 18:00 08/19/17 17:59 07/30/17 02:04 Dextrose (Dextrose 50%) STAT PRN IV Hypoglycemia 07/11/17 20:30 08/10/17 20:29 Diphenhydramine HCl (Benadryl) 25 mg Q6H PRN IVP Itching 07/25/17 17:00 08/24/17 16:59 07/31/17 10:12 Finasteride (Proscar) 5 mg DAILY ORAL 07/13/17 09:00 08/12/17 08:59 07/31/17 08:14 Fluconazole/ Sodium Chloride 100 ml @ 100 mls/hr Q24H IV 07/20/17 14:00 08/01/17 13:59 07/30/17 12:48 Heparin Sodium (Porcine) (Heparin 5000 units/ml) 5,000 units EVERY 12 HOURS SUBQ 07/11/17 21:00 08/02/17 08:59 07/31/17 08:31 Hydromorphone HCl (Dilaudid) 2 mg Q4H PRN IVP PAIN 4-10 07/29/17 09:01 08/05/17 09:00 07/31/17 08:15 Lansoprazole (Prevacid) 30 mg DAILY ORAL 07/12/17 09:00 08/11/17 08:59 07/31/17 08:14 Linezolid (Zyvox) 600 mg EVERY 12 HOURS ORAL 07/23/17 21:00 08/03/17 20:59 07/31/17 08:14 Meropenem 1 gm/ Dextrose 110 ml @ 220 mls/hr Q8HR@0300,1100,1900 IVPB 07/31/17 19:00 08/05/17 18:59 Meropenem 1 gm/ Sodium Chloride 110 ml @ 220 mls/hr Q8HR@0300,1100,1900 IVPB 07/28/17 19:00 07/31/17 18:59 07/31/17 01:48 Nitroglycerin (Ntg) 0.4 mg Q5MIN X 3 DOSES PRN SL Prn Chest Pain 07/11/17 20:32 08/09/17 20:31 Ondansetron HCl (Zofran) 4 mg Q6H PRN IVP Nausea & Vomiting 07/11/17 20:32 08/10/17 20:31 07/31/17 05:49 Potassium Chloride (K-Dur) 40 meq DAILY ORAL 07/20/17 09:00 08/19/17 08:59 07/31/17 08:15 Risperidone (RisperDAL) 4 mg BEDTIME ORAL 07/23/17 21:00 08/22/17 20:59 07/30/17 22:22 Sodium Chloride 1,000 ml @ 50 mls/hr Q20H IV 07/20/17 12:54 08/19/17 12:53 07/30/17 17:10 Temazepam (Restoril) 15 mg HSPRN PRN ORAL Insomnia 07/25/17 00:15 08/01/17 00:14 07/30/17 02:42 [facility]Gabbi NP Jul 31, 2017 10:23
[2017-07-31 11:23] LABS: HEMATOCRIT 27.1 % (42.0-52.0); HEMOGLOBIN 9.3 G/DL (14.2-18.0); MEAN CORPUSCULAR VOLUME 89 FL (80-99); PLATELET COUNT 328 K/UL (150-450); RED BLOOD COUNT 3.03 M/UL (4.70-6.10); RED CELL DISTRIBUTION WIDTH 13.5 % (11.6-14.8); WHITE BLOOD COUNT 14.2 K/UL (4.8-10.8)
[2017-07-31 11:47] LABS: ANION GAP 4 mmol/L (5-15); BLOOD UREA NITROGEN 5 mg/dL (7-18); CARBON DIOXIDE 34 MMOL/L (21-32); CHLORIDE 98 MMOL/L (98-107); CREATININE 0.5 MG/DL (0.55-1.30); POTASSIUM 4.1 MMOL/L (3.5-5.1); SODIUM 136 MMOL/L (136-145)
--- NOTE | 2017-07-31 12:53 | General Progress Note ---
Assessment/Plan Status: stable Assessment/Plan Schizophrenia CPT Encephalopathy PLAN: - increase the risperidone to 4 mg at bedtime. Subjective Date patient seen: Jul 31, 2017 Neurologic/Psychiatric: Reports: anxiety, depressed, emotional problems Allergies: Coded Allergies: No Known Allergies (Unverified , 01/20/17) Subjective the pt is calmer more organized. not motivated low energy more depressed and anhedonic Objective Last 24 Hour Vital Signs Date Time Temp Pulse Resp B/P (MAP) Pulse Ox O2 Delivery O2 Flow Rate FiO2 07/31/17 12:36 98.5 07/31/17 12:00 97.3 127 16 102/67 97 97.3 07/31/17 11:37 98.5 07/31/17 08:45 98.5 07/31/17 08:15 98.5 07/31/17 08:00 97.9 108 16 101/66 96 97.9 07/31/17 07:15 Nasal Cannula 2.0 28 07/31/17 07:15 96 Nasal Cannula 2.0 28 07/31/17 05:49 98.5 07/31/17 04:00 97.8 105 20 105/68 95 Room Air 97.8 07/31/17 01:48 98.5 07/31/17 00:00 98.5 100 17 116/82 98.5 07/30/17 22:23 98.6 07/30/17 20:00 98.6 114 19 118/71 95 98.6 07/30/17 18:41 98.2 07/30/17 16:50 98.2 07/30/17 16:09 98.2 109 18 112/78 95 Room Air 98.2 07/30/17 14:57 97.0 Intake and Output 07/30/17 07/31/17 19:00 07:00 Intake Total 670 ml 1130 ml Output Total 30 ml 65 ml Balance 640 ml 1065 ml Intake Oral 240 ml IV Total 670 ml 890 ml Stool Total 50 ml Drainage Total 30 ml 15 ml # Voids 2 Laboratory Tests 07/31/17 10:15: White Blood Count 14.2H, Red Blood Count 3.03L, Hemoglobin 9.3L, Hematocrit 27.1L, Mean Corpuscular Volume 89, Mean Corpuscular Hemoglobin 30.7, Mean Corpuscular Hemoglobin Concent 34.4, Red Cell Distribution Width 13.5, Platelet Count 328, Mean Platelet Volume 4.8L, Neutrophils (%) (Auto) , Lymphocytes (%) ( Auto) , Monocytes (%) (Auto) , Eosinophils (%) (Auto) , Basophils (%) (Auto) , Differential Total Cells Counted 100, Neutrophils % (Manual) 85H, Lymphocytes % (Manual) 5L, Monocytes % (Manual) 10, Eosinophils % (Manual) 0, Basophils % ( Manual) 0, Band Neutrophils 0, Platelet Estimate Adequate, Platelet Morphology Normal, Sodium Level 136, Potassium Level 4.1, Chloride Level 98, Carbon Dioxide Level 34H, Anion Gap 4L, Blood Urea Nitrogen 5L, Creatinine 0.5L, Estimat Glomerular Filtration Rate > 60, Glucose Level 98, Calcium Level 8.0L Height (Feet): 5 Height (Inches): 9.00 Weight (Pounds): 139 General Appearance: no apparent distress, alert Neurologic: oriented x 3, responsive, depressed affect Idalia Montanez M.D. Jul 31, 2017 12:53
--- NOTE | 2017-07-31 15:06 | Infectious Diseases Prog Note ---
Assessment/Plan Assessment/Plan ASSESSMENT: The patient is a 46-year-old male with; Bowel perf w/ development of 2 Abscess (subphrenic and pelvic) Cx: E coli( ESBL) and ENTEROCOCCUS AVIUM (turcios S) and Bact Fragilis - Repeat CT with persistent LUQ fluid collection and 2 other fluid collections; former suspect still residual abscess; latter 2 possible sterile vs infected s/p second exp lap and abscess draiange -s/p exploratory laparotomy, abdominal washout, evacuation of abscess, drain placement and abdominal closure 07/20; cx not received in the lab -s/p CT guided drainage APOLLO fluid collection 07/19: Aspiration and drainage of left upper quadrant collection, yielding 150 mL of carin pus. Note that the collection could only be partially evacuated, however, despite confirmation of apparent adequate position of the drain.This may indicate high viscosity of the contents; cx E. fecalis (turcios S), PREVOTELLA LOESCHEII (Aumgentin, Clinda R; Metronidazole S) s/p ex lap with left colectomy and transverse colostomy for perforated left colon, evacuation of intrabd abscess, abd washout w/ drain placement 07/09 -CT abd/p w/ 07/18: Postsurgical changes, as described, status post transverse colectomy, Jazz procedure, and placement of multiple surgical drains. Left upper quadrant intraperitoneal fluid collection, despite the presence of a surgical drain in the center of the collection. The presence of gas bubbles within rather than floating nondependently in the collection indicate that this fluid may be viscous. 2 other significant intraperitoneal collections,which do not appear to communicate, possibly loculated. Given presence of somewhat thick enhancing rim surrounding all of these, infected collections are certainly possible ( left paracolic gutter 5.8 cmx 4.3 cm x 8.3cm and R paracolic gutter, medial and inferior to tip R hepatic lobe 8cm x 6.4cm x8cm). Other than the gas within the left upper quadrant collection, previously demonstrated pneumoperitoneum has largely resolved. Left upper quadrant thick walled small bowel loops. Possibly reactive due to adjacent inflammation, enteritis is also possible. No evidence of bowel obstruction. Gallbladder wall edema versus pericholecystic fluid. -OR findings: The omentum was significantly thickened and adhesed to the small bowel and into the left lower quadrant. There was significant inflammatory process throughout the abdomen including a thickening of almost the entire peritoneal lining. The proximal portion of the jejunum was significantly thickened and had a rind of inflammatory infectious tissue on it. left transverse and descending colon, there was significant amount of thickening and significant disease process with some areas of mild ischemia noted and in the descending colon around the descending and sigmoid junction, there was a gross perforation with grossspillage of bowel contents noted in the area. there was a fluid collection/pelvic abscess, which was evacuated. There was a fluid collection in the right upper quadrant around the liver, which was evacuated and a large left upper quadrant subphrenic abscess with significant tissue rind and thickening around the stomach, spleen, peritoneum, and diaphragm in that location. CT : Evidence of perforation of hollow viscus with extensive amount of free air in the upper abdomen and some free fluid is well. Fever/Leukocytosis, fever resolved; leukocytosis worsening -Bcx NTD Elevated ALP -Abd US: Negative for gallstones. There is borderline gallbladder wall thickening, however. Most likely, this is reactive secondary to surrounding inflammation related to recent bowel perforation and surgery for such. However, the possibility of acalculous acute cholecystitis should be considered, and consideration for nuclear medicine hepatobiliary scanning if there is high clinical suspicion history of diarrhea, SP RAMSEY: Improved HTN COPD/asthma. Smoker. History of chronic constipation. Osteoarthritis. ? CAD/MS, hx PLAN: -Continue IV Meropenem abx d#21 and IV Ampicillin(abx d#15 for enterococcal coverage) for intraabdominal abscess -Continue Fluconazole #11 -Continue empiric PO linezolid #9 given recurrent of murky fluid for MRSA and nocardia coverage empirically -plan to treat for 2-4 weeks from 07/20 ; september repeat CT 08/03 --07/21 Zosyn #4 --07/18 SP Ertapenem, PO Amoxicillin #3 --12 SP Cefepime #2 --07/12 SP Zosyn d# 6 --SP Rocephin d# 5 -Trend WBC -low threshold to re-image if worsening WBC, fevers, abd pain -CXR, Bcx x2, Cdiff given rise in WBC -Requested micro lab to add fungal, nocardia and AFB cx to latest cultures ( ordered was auto-canceled and I was not notified; cultures were not done) -surgery following -wound care -Trend WBC monitor chest x-ray. Discussed with RN Subjective Allergies: Coded Allergies: No Known Allergies (Unverified , 01/20/17) Subjective afebrile leukocytosis increasing fluid more clear Objective Vital Signs Last 24 Hour Vital Signs Date Time Temp Pulse Resp B/P (MAP) Pulse Ox O2 Delivery O2 Flow Rate FiO2 07/31/17 13:05 98.5 07/31/17 12:36 98.5 07/31/17 12:00 97.3 127 16 102/67 97 97.3 07/31/17 11:37 98.5 07/31/17 08:45 98.5 07/31/17 08:15 98.5 07/31/17 08:00 97.9 108 16 101/66 96 97.9 07/31/17 07:15 Nasal Cannula 2.0 28 07/31/17 07:15 96 Nasal Cannula 2.0 28 07/31/17 05:49 98.5 07/31/17 04:00 97.8 105 20 105/68 95 Room Air 97.8 07/31/17 01:48 98.5 07/31/17 00:00 98.5 100 17 116/82 98.5 07/30/17 22:23 98.6 07/30/17 20:00 98.6 114 19 118/71 95 98.6 07/30/17 18:41 98.2 07/30/17 16:50 98.2 07/30/17 16:09 98.2 109 18 112/78 95 Room Air 98.2 07/30/17 14:57 97.0 Height (Feet): 5 Height (Inches): 9.00 Weight (Pounds): 139 Objective General Appearance: WD/WN, no apparent distress, alert, thin Cardiovascular: normal rate Respiratory/Chest: normal breath sounds, no respiratory distress Abdominal Exam: normal bowel sounds, non tender, soft, other - colostomy Extremities: non-tender Laboratory Tests Test 07/31/17 10:15 White Blood Count 14.2 K/UL (4.8-10.8) H Red Blood Count 3.03 M/UL (4.70-6.10) L Hemoglobin 9.3 G/DL (14.2-18.0) L Hematocrit 27.1 % (42.0-52.0) L Mean Corpuscular Volume 89 FL (80-99) Mean Corpuscular Hemoglobin 30.7 PG (27.0-31.0) Mean Corpuscular Hemoglobin Concent 34.4 G/DL (32.0-36.0) Red Cell Distribution Width 13.5 % (11.6-14.8) Platelet Count 328 K/UL (150-450) Mean Platelet Volume 4.8 FL (6.5-10.1) L Neutrophils (%) (Auto) % (45.0-75.0) Lymphocytes (%) (Auto) % (20.0-45.0) Monocytes (%) (Auto) % (1.0-10.0) Eosinophils (%) (Auto) % (0.0-3.0) Basophils (%) (Auto) % (0.0-2.0) Differential Total Cells Counted 100 Neutrophils % (Manual) 85 % (45-75) H Lymphocytes % (Manual) 5 % (20-45) L Monocytes % (Manual) 10 % (1-10) Eosinophils % (Manual) 0 % (0-3) Basophils % (Manual) 0 % (0-2) Band Neutrophils 0 % (0-8) Platelet Estimate Adequate Platelet Morphology Normal Sodium Level 136 MMOL/L (136-145) Potassium Level 4.1 MMOL/L (3.5-5.1) Chloride Level 98 MMOL/L (98-107) Carbon Dioxide Level 34 MMOL/L (21-32) H Anion Gap 4 mmol/L (5-15) L Blood Urea Nitrogen 5 mg/dL (7-18) L Creatinine 0.5 MG/DL (0.55-1.30) L Estimat Glomerular Filtration Rate > 60 mL/min (>60) Glucose Level 98 MG/DL (74-106) Calcium Level 8.0 MG/DL (8.5-10.1) L Current Medications Medications (Trade) Dose Ordered Sig/Kayy Route PRN Reason Start Time Stop Time Status Last Admin Dose Admin Acetaminophen (Tylenol) 650 mg Q6H PRN ORAL Mild Pain/Temp > 100.5 07/14/17 19:00 08/13/17 18:59 07/21/17 12:18 Acetaminophen/ Hydrocodone Bitart ([place] 5/325) 1 tab Q4H PRN ORAL Moderate Pain (Pain Scale 4-6) 07/30/17 09:00 08/06/17 08:59 07/31/17 11:37 Ampicillin 2 gm/ Dextrose 110 ml @ 220 mls/hr EVERY 6 HOURS IVPB 07/30/17 18:00 08/06/17 17:59 07/31/17 12:20 Calcium Carbonate (Tums) 1,000 mg Q4H PRN ORAL HEARTBURN/INDIGESTION 07/20/17 18:00 08/19/17 17:59 07/30/17 02:04 Dextrose (Dextrose 50%) STAT PRN IV Hypoglycemia 07/11/17 20:30 08/10/17 20:29 Diphenhydramine HCl (Benadryl) 25 mg Q6H PRN IVP Itching 07/25/17 17:00 08/24/17 16:59 07/31/17 10:12 Finasteride (Proscar) 5 mg DAILY ORAL 07/13/17 09:00 08/12/17 08:59 07/31/17 08:14 Fluconazole/ Sodium Chloride 100 ml @ 100 mls/hr Q24H IV 07/20/17 14:00 08/01/17 13:59 07/31/17 13:05 Heparin Sodium (Porcine) (Heparin 5000 units/ml) 5,000 units EVERY 12 HOURS SUBQ 07/11/17 21:00 08/02/17 08:59 07/31/17 08:31 Hydromorphone HCl (Dilaudid) 2 mg Q4H PRN IVP PAIN 4-10 07/29/17 09:01 08/05/17 09:00 07/31/17 13:05 Lansoprazole (Prevacid) 30 mg DAILY ORAL 07/12/17 09:00 08/11/17 08:59 07/31/17 08:14 Linezolid (Zyvox) 600 mg EVERY 12 HOURS ORAL 07/23/17 21:00 08/03/17 20:59 07/31/17 08:14 Meropenem 1 gm/ Dextrose 110 ml @ 220 mls/hr Q8HR@0300,1100,1900 IVPB 07/31/17 19:00 08/05/17 18:59 Meropenem 1 gm/ Sodium Chloride 110 ml @ 220 mls/hr Q8HR@0300,1100,1900 IVPB 07/28/17 19:00 07/31/17 18:59 07/31/17 11:30 Nitroglycerin (Ntg) 0.4 mg Q5MIN X 3 DOSES PRN SL Prn Chest Pain 07/11/17 20:32 08/09/17 20:31 Ondansetron HCl (Zofran) 4 mg Q6H PRN IVP Nausea & Vomiting 07/11/17 20:32 08/10/17 20:31 07/31/17 13:05 Potassium Chloride (K-Dur) 40 meq DAILY ORAL 07/20/17 09:00 08/19/17 08:59 07/31/17 08:15 Risperidone (RisperDAL) 4 mg BEDTIME ORAL 07/23/17 21:00 08/22/17 20:59 07/30/17 22:22 Sodium Chloride 1,000 ml @ 50 mls/hr Q20H IV 07/20/17 12:54 08/19/17 12:53 07/30/17 17:10 Temazepam (Restoril) 15 mg HSPRN PRN ORAL Insomnia 07/25/17 00:15 08/01/17 00:14 07/30/17 02:42 Chhaya Menendez M.D. Jul 31, 2017 15:06
--- NOTE | 2017-07-31 15:09 | Nephrology Progress Note ---
Assessment/Plan Problem List: (1) ARF (acute renal failure) (2) UTI (urinary tract infection) (3) Psychiatric disorder (4) Acute abdomen Assessment Status: WBCs wnl had multi abdominal drains acute renal failure- extended left colectomy due to perf transverse colostomy creation Plan Plan: per charles, 07/20/17 Mag and K supplement as needed DC horan DC IV PT advance diet Post op ( OP 07/08/17) Horan- 2D echo normal Ej Fx Albumin bollous monitor renal parameters K and Phos and Mag supplement as needed Subjective ROS Limited/Unobtainable: No Constitutional: Reports: malaise, weakness Objective Objective Last 24 Hour Vital Signs Date Time Temp Pulse Resp B/P (MAP) Pulse Ox O2 Delivery O2 Flow Rate FiO2 07/31/17 13:35 98.5 07/31/17 13:05 98.5 07/31/17 12:36 98.5 07/31/17 12:00 97.3 127 16 102/67 97 97.3 07/31/17 11:37 98.5 07/31/17 08:15 98.5 07/31/17 08:00 97.9 108 16 101/66 96 97.9 07/31/17 07:15 Nasal Cannula 2.0 28 07/31/17 07:15 96 Nasal Cannula 2.0 28 07/31/17 05:49 98.5 07/31/17 04:00 97.8 105 20 105/68 95 Room Air 97.8 07/31/17 01:48 98.5 07/31/17 00:00 98.5 100 17 116/82 98.5 07/30/17 22:23 98.6 07/30/17 20:00 98.6 114 19 118/71 95 98.6 07/30/17 18:41 98.2 07/30/17 16:50 98.2 07/30/17 16:09 98.2 109 18 112/78 95 Room Air 98.2 Intake and Output 07/30/17 07/31/17 19:00 07:00 Intake Total 670 ml 1180 ml Output Total 30 ml 65 ml Balance 640 ml 1115 ml Intake Oral 240 ml IV Total 670 ml 940 ml Stool Total 50 ml Drainage Total 30 ml 15 ml # Voids 2 Laboratory Tests 3/27/18 10:15: White Blood Count 14.2H, Red Blood Count 3.03L, Hemoglobin 9.3L, Hematocrit 27.1L, Mean Corpuscular Volume 89, Mean Corpuscular Hemoglobin 30.7, Mean Corpuscular Hemoglobin Concent 34.4, Red Cell Distribution Width 13.5, Platelet Count 328, Mean Platelet Volume 4.8L, Neutrophils (%) (Auto) , Lymphocytes (%) ( Auto) , Monocytes (%) (Auto) , Eosinophils (%) (Auto) , Basophils (%) (Auto) , Differential Total Cells Counted 100, Neutrophils % (Manual) 85H, Lymphocytes % (Manual) 5L, Monocytes % (Manual) 10, Eosinophils % (Manual) 0, Basophils % ( Manual) 0, Band Neutrophils 0, Platelet Estimate Adequate, Platelet Morphology Normal, Sodium Level 136, Potassium Level 4.1, Chloride Level 98, Carbon Dioxide Level 34H, Anion Gap 4L, Blood Urea Nitrogen 5L, Creatinine 0.5L, Estimat Glomerular Filtration Rate > 60, Glucose Level 98, Calcium Level 8.0L Height (Feet): 5 Height (Inches): 9.00 Weight (Pounds): 139 General Appearance: no apparent distress Cardiovascular: tachycardia Respiratory/Chest: decreased breath sounds Abdomen: distended Objective no other change NOEMY MARK Jul 31, 2017 15:09
--- NOTE | 2017-07-31 16:40 | General Surgery Progress Note ---
General Surgery-Progress Note Subjective Procedure Performed exploratory laparotomy, abdominal washout, evacuation of abscess, drain placement and abdominal closure Additional Comments doing well. not eating much. no complaints. ostomy functional. wounds okay. drains minimal Objective Last 24 Hour Vital Signs Date Time Temp Pulse Resp B/P (MAP) Pulse Ox O2 Delivery O2 Flow Rate FiO2 07/31/17 15:47 98.1 100 18 104/61 100 98.1 07/31/17 13:35 98.5 07/31/17 13:05 98.5 07/31/17 12:36 98.5 07/31/17 12:00 97.3 127 16 102/67 97 97.3 07/31/17 11:37 98.5 07/31/17 08:15 98.5 07/31/17 08:00 97.9 108 16 101/66 96 97.9 07/31/17 07:15 Nasal Cannula 2.0 28 07/31/17 07:15 96 Nasal Cannula 2.0 28 07/31/17 05:49 98.5 07/31/17 04:00 97.8 105 20 105/68 95 Room Air 97.8 07/31/17 01:48 98.5 07/31/17 00:00 98.5 100 17 116/82 98.5 07/30/17 22:23 98.6 07/30/17 20:00 98.6 114 19 118/71 95 98.6 07/30/17 18:41 98.2 07/30/17 16:50 98.2 I&O Intake and Output 07/30/17 07/31/17 19:00 07:00 Intake Total 670 ml 1180 ml Output Total 30 ml 65 ml Balance 640 ml 1115 ml Intake Oral 240 ml IV Total 670 ml 940 ml Stool Total 50 ml Drainage Total 30 ml 15 ml # Voids 2 Dressing: saturated Wound: clean Drains: reginaldo Cardiovascular: RSR Respiratory: clear Abdomen: soft, flat, non-tender, present bowel sounds Extremities: no edema, no tenderness, no cyanosis Laboratory Tests Test 07/31/17 10:15 White Blood Count 14.2 K/UL (4.8-10.8) H Red Blood Count 3.03 M/UL (4.70-6.10) L Hemoglobin 9.3 G/DL (14.2-18.0) L Hematocrit 27.1 % (42.0-52.0) L Mean Corpuscular Volume 89 FL (80-99) Mean Corpuscular Hemoglobin 30.7 PG (27.0-31.0) Mean Corpuscular Hemoglobin Concent 34.4 G/DL (32.0-36.0) Red Cell Distribution Width 13.5 % (11.6-14.8) Platelet Count 328 K/UL (150-450) Mean Platelet Volume 4.8 FL (6.5-10.1) L Neutrophils (%) (Auto) % (45.0-75.0) Lymphocytes (%) (Auto) % (20.0-45.0) Monocytes (%) (Auto) % (1.0-10.0) Eosinophils (%) (Auto) % (0.0-3.0) Basophils (%) (Auto) % (0.0-2.0) Differential Total Cells Counted 100 Neutrophils % (Manual) 85 % (45-75) H Lymphocytes % (Manual) 5 % (20-45) L Monocytes % (Manual) 10 % (1-10) Eosinophils % (Manual) 0 % (0-3) Basophils % (Manual) 0 % (0-2) Band Neutrophils 0 % (0-8) Platelet Estimate Adequate Platelet Morphology Normal Sodium Level 136 MMOL/L (136-145) Potassium Level 4.1 MMOL/L (3.5-5.1) Chloride Level 98 MMOL/L (98-107) Carbon Dioxide Level 34 MMOL/L (21-32) H Anion Gap 4 mmol/L (5-15) L Blood Urea Nitrogen 5 mg/dL (7-18) L Creatinine 0.5 MG/DL (0.55-1.30) L Estimat Glomerular Filtration Rate > 60 mL/min (>60) Glucose Level 98 MG/DL (74-106) Calcium Level 8.0 MG/DL (8.5-10.1) L Assessment Post-op Diagnosis abdominal dehiscence, intraabdominal abscess Plan Problems: (1) Perforated abdominal viscus Assessment & Plan: perforated abdominal viscus as noted on CT. exam with peritonitis generalized but with focus in LLQ. history of psych illness but currently AAOx4 and cooperative with exam. poor historian. possible drug seeking behavior. s/p Ex lap with abdominal washout, left colectomy and creation of transverse colostomy. Noted to have larger perforation in sigmoid likely stercoarl given operative findings. large left perisplenic abscess evacuated. drains placed. post operatively improved but after a few days noted to have purulent drainage out of left upper quadrant drain. CT demonstrated reaccumulation of large complex abscess despite extensive washout on initial operation. IR drain placed and pus evacuated but could not resolve complex collection. micro with multiorganism. midline wound dehiscence. decision made for re-exploration with washout, drains, and midline closure. s/p re-exploration with washout, drains, and midline closure on 07/20. large complex abscess noted, evacuated, washout, drains placed. midline fascia closed. doing well. recovering. improved pain afebrile, HD stable, labs reviewed. leukocytosis superficial left upper drain removed. 1 drains remaining. one in deep left upper quadrant with clear serous output -regular diet as tolerated -pt/ot, ambulate and out of bed, incentive spirometry -f/u cxr -cont IV Abx. appreciate ID input. -midline wound packing and dressings TID -drain care and management. -need to identify etiology of leukocytosis. unlikely abdominal. will await cxr. Gilberto Michelle Jul 31, 2017 16:40
[2017-07-31] MEDS: Meropenem 1 GM in D5W 110 ML IVPB SCH (17:55)
[2017-08-01] MEDS: DiphenhydrAMINE 50mg/ml Inj IVP PRN ×3 (01:09→17:36)
[2017-08-01] MEDS: Meropenem 1 GM in D5W 110 ML IVPB SCH ×3 (02:44→18:09)
[2017-08-01] MEDS: Norco 5mg/325mg tab ORAL PRN ×5 (03:33→23:47)
[2017-08-01 03:55] VITALS: BP 109/71
[2017-08-01] MEDS: AMPICILLIN IVPB SCH ×4 (05:17→23:47)
[2017-08-01] MEDS: D5W IVPB SCH ×4 (05:17→23:47)
[2017-08-01 07:12] LABS: HEMATOCRIT 29.9 % (42.0-52.0); HEMOGLOBIN 10.3 G/DL (14.2-18.0); MEAN CORPUSCULAR VOLUME 89 FL (80-99); PLATELET COUNT 361 K/UL (150-450); RED BLOOD COUNT 3.35 M/UL (4.70-6.10); RED CELL DISTRIBUTION WIDTH 13.9 % (11.6-14.8); WHITE BLOOD COUNT 14.5 K/UL (4.8-10.8)
[2017-08-01 07:24] LABS: ALANINE AMINOTRANSFERASE 11 U/L (12-78); ALBUMIN 1.9 G/DL (3.4-5.0); ALBUMIN/GLOBULIN RATIO 0.4 (1.0-2.7); ALKALINE PHOSPHATASE 133 U/L (46-116); ANION GAP 2 mmol/L (5-15); ASPARTATE AMINO TRANSFERASE 15 U/L (15-37); BILIRUBIN,TOTAL 0.4 MG/DL (0.2-1.0); BLOOD UREA NITROGEN 6 mg/dL (7-18); CALCIUM 8.9 MG/DL (8.5-10.1); CARBON DIOXIDE 37 MMOL/L (21-32); CHLORIDE 93 MMOL/L (98-107); CREATININE 0.7 MG/DL (0.55-1.30); POTASSIUM 4.7 MMOL/L (3.5-5.1); SODIUM 132 MMOL/L (136-145)
[2017-08-01 08:31] VITALS: BP 108/69
[2017-08-01] MEDS: Heparin 5000 units/ml inj SUBQ SCH ×2 (09:12→21:49)
--- NOTE | 2017-08-01 09:34 | Diagnostic Imaging Report ---
Indication: Both Technique: One view of the chest Comparison: 07/15/2017 Findings: Interim improvement of previously demonstrated bilateral basilar infiltrates. There is still some atelectasis in the right perihilar region and in the left lung base there may be minimal residual consolidation at the left lung base. A surgical drain is seen in the left upper quadrant. There are small bilateral pleural effusions still present, new or increased on the right, decreased on the left Impression: Improved left basilar consolidation, since 07/15/2017. Some residual atelectasis and possibly minimal residual consolidation Decreased but persistent pleural fluid on the left Resolved right mid and lower lung consolidation. Some residual perihilar atelectasis New or increased small right pleural effusion Left upper quadrant surgical drain
--- NOTE | 2017-08-01 09:52 | Pulmonology Progress Note ---
Assessment/Plan Assessment/Plan ASSESSMENT perforation of viscus pneumoperitoneum pleuritic chest pain ( likely due to perforated viscus) -perforated left colon with prolonged inflammatory reaction, gross spillage, and bowel ischemia. -Intra-abdominal abscess. s/p 3 Exploratory laparotomy, extended left colectomy, transverse colostomy creation, evacuation of intra-abdominal abscess, abdominal washout with drain placement. s/p 07/19 aspiration and drainage of intraperitoneal fluid collection by IR- 150cc Large complex intra-abdominal abscess Midline wound dehiscence. s/p 07/20 Exploratory laparotomy with evacuation of intra-abdominal abscess with debridement of necrotic infected tissues. abdominal washout and drain placement ARF -resolved hyperkalemia-resolved rhabdo-resolved acute on chronic constipation hx of recent colonoscopy at [facility] schizophrenia, paranoid type HTN COPD Smoker Amphetamine abuse PLAN OF CARE MS floor gentle IVF diet, advance as tolerated abx ID follows , last abd fluid cx + Enterococci, Prevotella; prior - E coli ESBL, Enterococci, bacteroides , blood cx negative s/p surgery , then drainage by IR and then reexploration due to large complicated IA abscess s/p 2 drain placements, drain care and monitor drain output, decreasing, s/p 1 drain removal 07/31 colostomy functional with good output, colostomy care ? cause of leuk- per surgery unlikely abdominal CXR 07/31 - Improved left basilar consolidation, since 07/15/2017. Some residual atelectasis and possibly minimal residual consolidation Decreased but persistent pleural fluid on the left Resolved right mid and lower lung consolidation. Some residual perihilar atelectasis New or increased small right pleural effusion unlikely PNA, no pulm complaints, no fever encourage use of IS ? repeat CT A/P - epr surgery discretion pain management , off [employer]- on IV Dilaudid prn, and [place] prn for breakthrough pain ; pain controlled IS while in the bed and encourage to use, O2 HHN prn OOB as tolerated with PT/OT, encourage ambulation- unwilling to ambulate wound care DVT GI prophylaxis GI follows ARF resolved, monitor renal parameters, lytes, correct as needed, avoid nephrotoxic nephro follows vp & general counsel on abstinence from street drugs vp & general counsel on abstinence from smoking declined nicotine patch psych follows psych meds as per psych recs initially: troponin x 2 negative, no acute ischemic changes on ECF/tele , thus no evidence of acute NH cardio eval appreciated O2 HHN prn Venous Duplex BLE negative stat CTA chest done 07/08 with evidence perforation of hollow viscus with extensive amount of free air in the upper abdomen and some free fluid is well.; no evidence of PE inial surgery 07/09 ECHO with pEF case discussed and evaluated by supervising physician Subjective Allergies: Coded Allergies: No Known Allergies (Unverified , 01/20/17) Subjective still with leucocytosis, afebrile off [employer] pain controlled Objective Last 24 Hour Vital Signs Date Time Temp Pulse Resp B/P (MAP) Pulse Ox O2 Delivery O2 Flow Rate FiO2 08/01/17 08:31 98.4 111 20 108/69 95 98.4 08/01/17 03:55 98.1 108 20 109/71 91 Room Air 98.1 08/01/17 00:00 Room Air 07/31/17 23:31 98.1 107 18 101/64 94 98.1 07/31/17 20:00 98.4 109 18 101/67 94 98.4 07/31/17 20:00 Room Air 07/31/17 17:56 98.1 07/31/17 17:19 98.1 07/31/17 16:49 98.1 07/31/17 15:47 98.1 100 18 104/61 100 98.1 07/31/17 13:05 98.5 07/31/17 12:36 98.5 07/31/17 12:00 97.3 127 16 102/67 97 97.3 07/31/17 11:37 98.5 Intake and Output 07/31/17 08/01/17 19:00 07:00 Intake Total 1340 ml 680 ml Output Total 310 ml 103 ml Balance 1030 ml 577 ml Intake Oral 720 ml 100 ml IV Total 620 ml 580 ml Stool Total 300 ml 100 ml Drainage Total 10 ml 3 ml # Voids 3 3 Objective General Appearance: no acute distress, A/A/O x 3 male HEENT: normocephalic, atraumatic, anicteric Respiratory/Chest: lungs clear, no respiratory distress Cardiovascular: normal rate, no JVD Abdomen: normal bowel sounds, Colostomy with stool, 1 ALIA drains with serosanguineous drainage, dressing C/D/I Extremities: no edema, pedal pulses normal Neurologic/Psychiatric: alert, oriented x 3, responsive Musculoskeletal: normal muscle bulk Laboratory Tests 07/31/17 10:15: White Blood Count 14.2H, Red Blood Count 3.03L, Hemoglobin 9.3L, Hematocrit 27.1L, Mean Corpuscular Volume 89, Mean Corpuscular Hemoglobin 30.7, Mean Corpuscular Hemoglobin Concent 34.4, Red Cell Distribution Width 13.5, Platelet Count 328, Mean Platelet Volume 4.8L, Neutrophils (%) (Auto) , Lymphocytes (%) ( Auto) , Monocytes (%) (Auto) , Eosinophils (%) (Auto) , Basophils (%) (Auto) , Differential Total Cells Counted 100, Neutrophils % (Manual) 85H, Lymphocytes % (Manual) 5L, Monocytes % (Manual) 10, Eosinophils % (Manual) 0, Basophils % ( Manual) 0, Band Neutrophils 0, Platelet Estimate Adequate, Platelet Morphology Normal, Sodium Level 136, Potassium Level 4.1, Chloride Level 98, Carbon Dioxide Level 34H, Anion Gap 4L, Blood Urea Nitrogen 5L, Creatinine 0.5L, Estimat Glomerular Filtration Rate > 60, Glucose Level 98, Calcium Level 8.0L 08/01/17 05:35: White Blood Count 14.5H, Red Blood Count 3.35L, Hemoglobin 10.3L, Hematocrit 29.9L, Mean Corpuscular Volume 89, Mean Corpuscular Hemoglobin 30.7, Mean Corpuscular Hemoglobin Concent 34.4, Red Cell Distribution Width 13.9, Platelet Count 361, Mean Platelet Volume 4.8L, Neutrophils (%) (Auto) , Lymphocytes (%) ( Auto) , Monocytes (%) (Auto) , Eosinophils (%) (Auto) , Basophils (%) (Auto) , Differential Total Cells Counted 100, Neutrophils % (Manual) 86H, Lymphocytes % (Manual) 7L, Monocytes % (Manual) 6, Eosinophils % (Manual) 0, Basophils % ( Manual) 1, Band Neutrophils 0, Platelet Estimate Adequate, Platelet Morphology Normal, Sodium Level 132L, Potassium Level 4.7, Chloride Level 93L, Carbon Dioxide Level 37H, Anion Gap 2L, Blood Urea Nitrogen 6L, Creatinine 0.7, Estimat Glomerular Filtration Rate > 60, Glucose Level 117H, Calcium Level 8.9, Hypochromasia 1+, Total Bilirubin 0.4, Aspartate Amino Transf (AST/SGOT) 15, Alanine Aminotransferase (ALT/SGPT) 11L, Alkaline Phosphatase 133H, Total Protein 7.0, Albumin 1.9L, Globulin 5.1, Albumin/Globulin Ratio 0.4L Current Medications Medications (Trade) Dose Ordered Sig/Kayy Route PRN Reason Start Time Stop Time Status Last Admin Dose Admin Acetaminophen (Tylenol) 650 mg Q6H PRN ORAL Mild Pain/Temp > 100.5 07/14/17 19:00 08/13/17 18:59 07/21/17 12:18 Acetaminophen/ Hydrocodone Bitart ([place] 5/325) 1 tab Q4H PRN ORAL Moderate Pain (Pain Scale 4-6) 07/30/17 09:00 08/06/17 08:59 08/01/17 07:31 Ampicillin 2 gm/ Dextrose 110 ml @ 220 mls/hr EVERY 6 HOURS IVPB 07/30/17 18:00 08/06/17 17:59 08/01/17 05:17 Calcium Carbonate (Tums) 1,000 mg Q4H PRN ORAL HEARTBURN/INDIGESTION 07/20/17 18:00 08/19/17 17:59 07/30/17 02:04 Dextrose (Dextrose 50%) STAT PRN IV Hypoglycemia 07/11/17 20:30 08/10/17 20:29 Diphenhydramine HCl (Benadryl) 25 mg Q6H PRN IVP Itching 07/25/17 17:00 08/24/17 16:59 08/01/17 07:32 Finasteride (Proscar) 5 mg DAILY ORAL 07/13/17 09:00 08/12/17 08:59 08/01/17 09:07 Fluconazole/ Sodium Chloride 100 ml @ 100 mls/hr Q24H IV 07/20/17 14:00 08/01/17 13:59 07/31/17 13:05 Heparin Sodium (Porcine) (Heparin 5000 units/ml) 5,000 units EVERY 12 HOURS SUBQ 07/11/17 21:00 08/02/17 08:59 08/01/17 09:12 Hydromorphone HCl (Dilaudid) 2 mg Q4H PRN IVP PAIN 4-10 07/29/17 09:01 08/05/17 09:00 08/01/17 09:08 Lansoprazole (Prevacid) 30 mg DAILY ORAL 07/12/17 09:00 08/11/17 08:59 08/01/17 09:07 Linezolid (Zyvox) 600 mg EVERY 12 HOURS ORAL 07/23/17 21:00 08/03/17 20:59 08/01/17 09:07 Meropenem 1 gm/ Dextrose 110 ml @ 220 mls/hr Q8HR@0300,1100,1900 IVPB 07/31/17 19:00 08/05/17 18:59 08/01/17 02:44 Nitroglycerin (Ntg) 0.4 mg Q5MIN X 3 DOSES PRN SL Prn Chest Pain 07/11/17 20:32 08/09/17 20:31 Ondansetron HCl (Zofran) 4 mg Q6H PRN IVP Nausea & Vomiting 07/11/17 20:32 08/10/17 20:31 08/01/17 03:32 Potassium Chloride (K-Dur) 40 meq DAILY ORAL 07/20/17 09:00 08/19/17 08:59 08/01/17 09:07 Risperidone (RisperDAL) 4 mg BEDTIME ORAL 07/23/17 21:00 08/22/17 20:59 07/31/17 20:57 Sodium Chloride 1,000 ml @ 50 mls/hr Q20H IV 07/20/17 12:54 08/19/17 12:53 07/31/17 20:59 Clay [facility])Gabbi NP Aug 01, 2017 09:52
--- NOTE | 2017-08-01 10:56 | General Surgery Progress Note ---
General Surgery-Progress Note Subjective Procedure Performed exploratory laparotomy, abdominal washout, evacuation of abscess, drain placement and abdominal closure Symptoms: improved Additional Comments much better today. walking around the halls. still with pain seeking behavior. no n/v/f/c. tolerating diet. on exam when returned to room much improved. Objective Last 24 Hour Vital Signs Date Time Temp Pulse Resp B/P (MAP) Pulse Ox O2 Delivery O2 Flow Rate FiO2 08/01/17 08:31 98.4 111 20 108/69 95 98.4 08/01/17 03:55 98.1 108 20 109/71 91 Room Air 98.1 08/01/17 00:00 Room Air 07/31/17 23:31 98.1 107 18 101/64 94 98.1 07/31/17 20:00 98.4 109 18 101/67 94 98.4 07/31/17 20:00 Room Air 07/31/17 17:56 98.1 07/31/17 17:19 98.1 07/31/17 16:49 98.1 07/31/17 15:47 98.1 100 18 104/61 100 98.1 07/31/17 13:05 98.5 07/31/17 12:36 98.5 07/31/17 12:00 97.3 127 16 102/67 97 97.3 07/31/17 11:37 98.5 I&O Intake and Output 07/31/17 08/01/17 19:00 07:00 Intake Total 1340 ml 680 ml Output Total 310 ml 103 ml Balance 1030 ml 577 ml Intake Oral 720 ml 100 ml IV Total 620 ml 580 ml Stool Total 300 ml 100 ml Drainage Total 10 ml 3 ml # Voids 3 3 Dressing: dry Wound: clean Drains: none Cardiovascular: RSR Respiratory: clear Abdomen: soft, flat, non-tender, present bowel sounds, other - ostomy pink and with good output Extremities: no edema, no tenderness, no cyanosis Laboratory Tests Test 08/01/17 05:35 White Blood Count 14.5 K/UL (4.8-10.8) H Red Blood Count 3.35 M/UL (4.70-6.10) L Hemoglobin 10.3 G/DL (14.2-18.0) L Hematocrit 29.9 % (42.0-52.0) L Mean Corpuscular Volume 89 FL (80-99) Mean Corpuscular Hemoglobin 30.7 PG (27.0-31.0) Mean Corpuscular Hemoglobin Concent 34.4 G/DL (32.0-36.0) Red Cell Distribution Width 13.9 % (11.6-14.8) Platelet Count 361 K/UL (150-450) Mean Platelet Volume 4.8 FL (6.5-10.1) L Neutrophils (%) (Auto) % (45.0-75.0) Lymphocytes (%) (Auto) % (20.0-45.0) Monocytes (%) (Auto) % (1.0-10.0) Eosinophils (%) (Auto) % (0.0-3.0) Basophils (%) (Auto) % (0.0-2.0) Differential Total Cells Counted 100 Neutrophils % (Manual) 86 % (45-75) H Lymphocytes % (Manual) 7 % (20-45) L Monocytes % (Manual) 6 % (1-10) Eosinophils % (Manual) 0 % (0-3) Basophils % (Manual) 1 % (0-2) Band Neutrophils 0 % (0-8) Platelet Estimate Adequate Platelet Morphology Normal Hypochromasia 1+ Sodium Level 132 MMOL/L (136-145) L Potassium Level 4.7 MMOL/L (3.5-5.1) Chloride Level 93 MMOL/L (98-107) L Carbon Dioxide Level 37 MMOL/L (21-32) H Anion Gap 2 mmol/L (5-15) L Blood Urea Nitrogen 6 mg/dL (7-18) L Creatinine 0.7 MG/DL (0.55-1.30) Estimat Glomerular Filtration Rate > 60 mL/min (>60) Glucose Level 117 MG/DL (74-106) H Calcium Level 8.9 MG/DL (8.5-10.1) Total Bilirubin 0.4 MG/DL (0.2-1.0) Aspartate Amino Transf (AST/SGOT) 15 U/L (15-37) Alanine Aminotransferase (ALT/SGPT) 11 U/L (12-78) L Alkaline Phosphatase 133 U/L (46-116) H Total Protein 7.0 G/DL (6.4-8.2) Albumin 1.9 G/DL (3.4-5.0) L Globulin 5.1 g/dL Albumin/Globulin Ratio 0.4 (1.0-2.7) L Assessment Post-op Diagnosis abdominal dehiscence, intraabdominal abscess Plan Problems: (1) Perforated abdominal viscus Assessment & Plan: perforated abdominal viscus as noted on CT. exam with peritonitis generalized but with focus in LLQ. history of psych illness but currently AAOx4 and cooperative with exam. poor historian. possible drug seeking behavior. s/p Ex lap with abdominal washout, left colectomy and creation of transverse colostomy. Noted to have larger perforation in sigmoid likely stercoarl given operative findings. large left perisplenic abscess evacuated. drains placed. post operatively improved but after a few days noted to have purulent drainage out of left upper quadrant drain. CT demonstrated reaccumulation of large complex abscess despite extensive washout on initial operation. IR drain placed and pus evacuated but could not resolve complex collection. micro with multiorganism. midline wound dehiscence. decision made for re-exploration with washout, drains, and midline closure. s/p re-exploration with washout, drains, and midline closure on 07/20. large complex abscess noted, evacuated, washout, drains placed. midline fascia closed. doing well. recovering. improved pain afebrile, HD stable, labs reviewed. leukocytosis All surgical drains removed now. upon removal minimal serous output. exam benign. -regular diet as tolerated -pt/ot, ambulate and out of bed, incentive spirometry -cont IV Abx. appreciate ID input. -midline wound packing and dressings TID -at this point he looks much better and is improving. just has slight leukocytosis which has been intermittent for some time now despite clinically improved. abdomen benign. wound clean. ostomy functional. can consider d/c planning to SNF for IV ABX and recovery Gilberto Michelle Aug 01, 2017 10:56
--- NOTE | 2017-08-01 11:03 | Nephrology Progress Note ---
Assessment/Plan Problem List: (1) ARF (acute renal failure) (2) UTI (urinary tract infection) (3) Psychiatric disorder (4) Acute abdomen Assessment Status: WBCs wnl had multi abdominal drains acute renal failure- extended left colectomy due to perf transverse colostomy creation Plan Plan: per charles, 07/20/17 Mag and K supplement as needed DC horan DC IV PT advance diet Post op ( OP 07/08/17) Horan- 2D echo normal Ej Fx Albumin bollous monitor renal parameters K and Phos and Mag supplement as needed Subjective ROS Limited/Unobtainable: No Objective Objective Last 24 Hour Vital Signs Date Time Temp Pulse Resp B/P (MAP) Pulse Ox O2 Delivery O2 Flow Rate FiO2 08/01/17 08:31 98.4 111 20 108/69 95 98.4 08/01/17 03:55 98.1 108 20 109/71 91 Room Air 98.1 08/01/17 00:00 Room Air 07/31/17 23:31 98.1 107 18 101/64 94 98.1 07/31/17 20:00 98.4 109 18 101/67 94 98.4 07/31/17 20:00 Room Air 07/31/17 17:56 98.1 07/31/17 17:19 98.1 07/31/17 16:49 98.1 07/31/17 15:47 98.1 100 18 104/61 100 98.1 07/31/17 13:05 98.5 07/31/17 12:36 98.5 07/31/17 12:00 97.3 127 16 102/67 97 97.3 07/31/17 11:37 98.5 Intake and Output 07/31/17 08/01/17 19:00 07:00 Intake Total 1340 ml 680 ml Output Total 310 ml 103 ml Balance 1030 ml 577 ml Intake Oral 720 ml 100 ml IV Total 620 ml 580 ml Stool Total 300 ml 100 ml Drainage Total 10 ml 3 ml # Voids 3 3 Laboratory Tests 08/01/17 05:35: White Blood Count 14.5H, Red Blood Count 3.35L, Hemoglobin 10.3L, Hematocrit 29.9L, Mean Corpuscular Volume 89, Mean Corpuscular Hemoglobin 30.7, Mean Corpuscular Hemoglobin Concent 34.4, Red Cell Distribution Width 13.9, Platelet Count 361, Mean Platelet Volume 4.8L, Neutrophils (%) (Auto) , Lymphocytes (%) ( Auto) , Monocytes (%) (Auto) , Eosinophils (%) (Auto) , Basophils (%) (Auto) , Differential Total Cells Counted 100, Neutrophils % (Manual) 86H, Lymphocytes % (Manual) 7L, Monocytes % (Manual) 6, Eosinophils % (Manual) 0, Basophils % ( Manual) 1, Band Neutrophils 0, Platelet Estimate Adequate, Platelet Morphology Normal, Hypochromasia 1+, Sodium Level 132L, Potassium Level 4.7, Chloride Level 93L, Carbon Dioxide Level 37H, Anion Gap 2L, Blood Urea Nitrogen 6L, Creatinine 0.7, Estimat Glomerular Filtration Rate > 60, Glucose Level 117H, Calcium Level 8.9, Total Bilirubin 0.4, Aspartate Amino Transf (AST/SGOT) 15, Alanine Aminotransferase (ALT/SGPT) 11L, Alkaline Phosphatase 133H, Total Protein 7.0, Albumin 1.9L, Globulin 5.1, Albumin/Globulin Ratio 0.4L Height (Feet): 5 Height (Inches): 9.00 Weight (Pounds): 136 General Appearance: no apparent distress Objective no other change NOEMY MARK Aug 01, 2017 11:03
[2017-08-01 12:00] VITALS: BP 101/72
--- NOTE | 2017-08-01 13:12 | GI Progress Note ---
Assessment/Plan Problems: (1) Psychiatric disorder ICD Codes: F99 - Mental disorder, not otherwise specified SNOMED: 49134646, 717347630 (2) Amphetamine abuse ICD Codes: F15.10 - Other stimulant abuse, uncomplicated SNOMED: 66939462 (3) Opiate dependence ICD Codes: F11.20 - Opioid dependence, uncomplicated SNOMED: 46666842 Qualifiers: Qualified Codes: F11.20 - Opioid dependence, uncomplicated (4) Perforated abdominal viscus SNOMED: 213099023 Status: stable Status Narrative Discussed with Dr. Castro. Assessment/Plan s/p Exploratory laparotomy, partial bowel resection fu surgical recs IVFs diet adv per surgery colostomy care prn transfusions serial imaging prn pain mgmt fu labs Subjective Subjective doing well abdominal pain Objective Last 24 Hour Vital Signs Date Time Temp Pulse Resp B/P (MAP) Pulse Ox O2 Delivery O2 Flow Rate FiO2 08/01/17 12:00 98.0 136 21 101/72 96 98.0 08/01/17 08:31 98.4 111 20 108/69 95 98.4 08/01/17 03:55 98.1 108 20 109/71 91 Room Air 98.1 08/01/17 00:00 Room Air 07/31/17 23:31 98.1 107 18 101/64 94 98.1 07/31/17 20:00 98.4 109 18 101/67 94 98.4 07/31/17 20:00 Room Air 07/31/17 17:56 98.1 07/31/17 17:19 98.1 07/31/17 16:49 98.1 07/31/17 15:47 98.1 100 18 104/61 100 98.1 Intake and Output 07/31/17 08/01/17 19:00 07:00 Intake Total 1340 ml 730 ml Output Total 310 ml 103 ml Balance 1030 ml 627 ml Intake Oral 720 ml 100 ml IV Total 620 ml 630 ml Stool Total 300 ml 100 ml Drainage Total 10 ml 3 ml # Voids 3 3 Laboratory Tests Test 08/01/17 05:35 White Blood Count 14.5 K/UL (4.8-10.8) H Red Blood Count 3.35 M/UL (4.70-6.10) L Hemoglobin 10.3 G/DL (14.2-18.0) L Hematocrit 29.9 % (42.0-52.0) L Mean Corpuscular Volume 89 FL (80-99) Mean Corpuscular Hemoglobin 30.7 PG (27.0-31.0) Mean Corpuscular Hemoglobin Concent 34.4 G/DL (32.0-36.0) Red Cell Distribution Width 13.9 % (11.6-14.8) Platelet Count 361 K/UL (150-450) Mean Platelet Volume 4.8 FL (6.5-10.1) L Neutrophils (%) (Auto) % (45.0-75.0) Lymphocytes (%) (Auto) % (20.0-45.0) Monocytes (%) (Auto) % (1.0-10.0) Eosinophils (%) (Auto) % (0.0-3.0) Basophils (%) (Auto) % (0.0-2.0) Differential Total Cells Counted 100 Neutrophils % (Manual) 86 % (45-75) H Lymphocytes % (Manual) 7 % (20-45) L Monocytes % (Manual) 6 % (1-10) Eosinophils % (Manual) 0 % (0-3) Basophils % (Manual) 1 % (0-2) Band Neutrophils 0 % (0-8) Platelet Estimate Adequate Platelet Morphology Normal Hypochromasia 1+ Sodium Level 132 MMOL/L (136-145) L Potassium Level 4.7 MMOL/L (3.5-5.1) Chloride Level 93 MMOL/L (98-107) L Carbon Dioxide Level 37 MMOL/L (21-32) H Anion Gap 2 mmol/L (5-15) L Blood Urea Nitrogen 6 mg/dL (7-18) L Creatinine 0.7 MG/DL (0.55-1.30) Estimat Glomerular Filtration Rate > 60 mL/min (>60) Glucose Level 117 MG/DL (74-106) H Calcium Level 8.9 MG/DL (8.5-10.1) Total Bilirubin 0.4 MG/DL (0.2-1.0) Aspartate Amino Transf (AST/SGOT) 15 U/L (15-37) Alanine Aminotransferase (ALT/SGPT) 11 U/L (12-78) L Alkaline Phosphatase 133 U/L (46-116) H Total Protein 7.0 G/DL (6.4-8.2) Albumin 1.9 G/DL (3.4-5.0) L Globulin 5.1 g/dL Albumin/Globulin Ratio 0.4 (1.0-2.7) L Microbiology Date/Time Source Procedure Growth Status 07/31/17 18:00 Stool Clostridium difficile Toxin Assay - Final Complete Height (Feet): 5 Height (Inches): 9.00 Weight (Pounds): 136 General Appearance: WD/WN, no apparent distress, alert Cardiovascular: normal rate Respiratory/Chest: normal breath sounds, no respiratory distress Abdominal Exam: normal bowel sounds, non tender, soft, other - colostomy site Extremities: normal range of motion, non-tender Samia Albarran N.P. Aug 01, 2017 13:12
[2017-08-01] MEDS: Tums 500mg ORAL PRN (13:32)
--- NOTE | 2017-08-01 15:50 | Infectious Diseases Prog Note ---
Assessment/Plan Assessment/Plan ASSESSMENT: The patient is a 46-year-old male with; Bowel perf w/ development of 2 Abscess (subphrenic and pelvic) Cx: E coli( ESBL) and ENTEROCOCCUS AVIUM (turcios S) and Bact Fragilis - Repeat CT with persistent LUQ fluid collection and 2 other fluid collections; former suspect still residual abscess; latter 2 possible sterile vs infected s/p second exp lap and abscess draiange -s/p exploratory laparotomy, abdominal washout, evacuation of abscess, drain placement and abdominal closure 07/20; cx not received in the lab -s/p CT guided drainage APOLLO fluid collection 07/19: Aspiration and drainage of left upper quadrant collection, yielding 150 mL of carin pus. Note that the collection could only be partially evacuated, however, despite confirmation of apparent adequate position of the drain.This may indicate high viscosity of the contents; cx E. fecalis (turcios S), PREVOTELLA LOESCHEII (Aumgentin, Clinda R; Metronidazole S) s/p ex lap with left colectomy and transverse colostomy for perforated left colon, evacuation of intrabd abscess, abd washout w/ drain placement 07/09 -CT abd/p w/ 07/18: Postsurgical changes, as described, status post transverse colectomy, Jazz procedure, and placement of multiple surgical drains. Left upper quadrant intraperitoneal fluid collection, despite the presence of a surgical drain in the center of the collection. The presence of gas bubbles within rather than floating nondependently in the collection indicate that this fluid may be viscous. 2 other significant intraperitoneal collections,which do not appear to communicate, possibly loculated. Given presence of somewhat thick enhancing rim surrounding all of these, infected collections are certainly possible ( left paracolic gutter 5.8 cmx 4.3 cm x 8.3cm and R paracolic gutter, medial and inferior to tip R hepatic lobe 8cm x 6.4cm x8cm). Other than the gas within the left upper quadrant collection, previously demonstrated pneumoperitoneum has largely resolved. Left upper quadrant thick walled small bowel loops. Possibly reactive due to adjacent inflammation, enteritis is also possible. No evidence of bowel obstruction. Gallbladder wall edema versus pericholecystic fluid. -OR findings: The omentum was significantly thickened and adhesed to the small bowel and into the left lower quadrant. There was significant inflammatory process throughout the abdomen including a thickening of almost the entire peritoneal lining. The proximal portion of the jejunum was significantly thickened and had a rind of inflammatory infectious tissue on it. left transverse and descending colon, there was significant amount of thickening and significant disease process with some areas of mild ischemia noted and in the descending colon around the descending and sigmoid junction, there was a gross perforation with grossspillage of bowel contents noted in the area. there was a fluid collection/pelvic abscess, which was evacuated. There was a fluid collection in the right upper quadrant around the liver, which was evacuated and a large left upper quadrant subphrenic abscess with significant tissue rind and thickening around the stomach, spleen, peritoneum, and diaphragm in that location. CT : Evidence of perforation of hollow viscus with extensive amount of free air in the upper abdomen and some free fluid is well. Fever/Leukocytosis, fever resolved; leukocytosis recurrent, stable -07/31 Cdiff neg -07/15 Bcx Neg ?PNA, resolving -CXR 07/31: Improved left basilar consolidation, since 07/15/2017. Some residual atelectasis and possibly minimal residual consolidation. Decreased but persistent pleural fluid on the left. Resolved right mid and lower lung consolidation. Some residual perihilar atelectasis. New or increased small right pleural effusion. Left upper quadrant surgical drain Elevated ALP , improved -Abd US: Negative for gallstones. There is borderline gallbladder wall thickening, however. Most likely, this is reactive secondary to surrounding inflammation related to recent bowel perforation and surgery for such. However, the possibility of acalculous acute cholecystitis should be considered, and consideration for nuclear medicine hepatobiliary scanning if there is high clinical suspicion history of diarrhea, SP RAMSEY: Improved HTN COPD/asthma. Smoker. History of chronic constipation. Osteoarthritis. ? CAD/NE, hx PLAN: -Continue IV Meropenem abx d#22 and IV Ampicillin(abx d#16 for enterococcal coverage) for intraabdominal abscess -Continue Fluconazole #12 -Continue empiric PO linezolid #10 given recurrent of murky fluid for MRSA and nocardia coverage empirically -plan to treat for 2-4 weeks from 07/20 --07/21 Zosyn #4 --07/18 SP Ertapenem, PO Amoxicillin #3 --07/16 SP Cefepime #2 --07/12 SP Zosyn d# 6 --SP Rocephin d# 5 -Repeat CT abd/p w/ to determine abx duration-now 2 weeks post-op abx. if abscess resolved, will stop abx. -Trend WBC -f/u repeat Bcx x2 -Requested micro lab to add fungal, nocardia and AFB cx to latest cultures ( ordered was auto-canceled and I was not notified; cultures were not done) -surgery following -wound care -Trend WBC -CRP am monitor chest x-ray. Discussed with RN Subjective Allergies: Coded Allergies: No Known Allergies (Unverified , 01/20/17) Subjective afebrile leukocytosis stable surgical drains now removed CXR improved ambulating through floors Objective Vital Signs Last 24 Hour Vital Signs Date Time Temp Pulse Resp B/P (MAP) Pulse Ox O2 Delivery O2 Flow Rate FiO2 08/01/17 12:00 98.0 136 21 101/72 96 98.0 08/01/17 08:31 98.4 111 20 108/69 95 98.4 08/01/17 03:55 98.1 108 20 109/71 91 Room Air 98.1 08/01/17 00:00 Room Air 07/31/17 23:31 98.1 107 18 101/64 94 98.1 07/31/17 20:00 98.4 109 18 101/67 94 98.4 07/31/17 20:00 Room Air 07/31/17 17:56 98.1 07/31/17 17:19 98.1 07/31/17 16:49 98.1 07/31/17 15:47 98.1 100 18 104/61 100 98.1 Height (Feet): 5 Height (Inches): 9.00 Weight (Pounds): 136 Objective General Appearance: WD/WN, no apparent distress, alert, thin Cardiovascular: normal rate Respiratory/Chest: normal breath sounds, no respiratory distress Abdominal Exam: normal bowel sounds, non tender, soft, other - colostomy Extremities: non-tender Microbiology Date/Time Source Procedure Growth Status 07/31/17 18:00 Stool Clostridium difficile Toxin Assay - Final Complete Laboratory Tests Test 08/01/17 05:35 White Blood Count 14.5 K/UL (4.8-10.8) H Red Blood Count 3.35 M/UL (4.70-6.10) L Hemoglobin 10.3 G/DL (14.2-18.0) L Hematocrit 29.9 % (42.0-52.0) L Mean Corpuscular Volume 89 FL (80-99) Mean Corpuscular Hemoglobin 30.7 PG (27.0-31.0) Mean Corpuscular Hemoglobin Concent 34.4 G/DL (32.0-36.0) Red Cell Distribution Width 13.9 % (11.6-14.8) Platelet Count 361 K/UL (150-450) Mean Platelet Volume 4.8 FL (6.5-10.1) L Neutrophils (%) (Auto) % (45.0-75.0) Lymphocytes (%) (Auto) % (20.0-45.0) Monocytes (%) (Auto) % (1.0-10.0) Eosinophils (%) (Auto) % (0.0-3.0) Basophils (%) (Auto) % (0.0-2.0) Differential Total Cells Counted 100 Neutrophils % (Manual) 86 % (45-75) H Lymphocytes % (Manual) 7 % (20-45) L Monocytes % (Manual) 6 % (1-10) Eosinophils % (Manual) 0 % (0-3) Basophils % (Manual) 1 % (0-2) Band Neutrophils 0 % (0-8) Platelet Estimate Adequate Platelet Morphology Normal Hypochromasia 1+ Sodium Level 132 MMOL/L (136-145) L Potassium Level 4.7 MMOL/L (3.5-5.1) Chloride Level 93 MMOL/L (98-107) L Carbon Dioxide Level 37 MMOL/L (21-32) H Anion Gap 2 mmol/L (5-15) L Blood Urea Nitrogen 6 mg/dL (7-18) L Creatinine 0.7 MG/DL (0.55-1.30) Estimat Glomerular Filtration Rate > 60 mL/min (>60) Glucose Level 117 MG/DL (74-106) H Calcium Level 8.9 MG/DL (8.5-10.1) Total Bilirubin 0.4 MG/DL (0.2-1.0) Aspartate Amino Transf (AST/SGOT) 15 U/L (15-37) Alanine Aminotransferase (ALT/SGPT) 11 U/L (12-78) L Alkaline Phosphatase 133 U/L (46-116) H Total Protein 7.0 G/DL (6.4-8.2) Albumin 1.9 G/DL (3.4-5.0) L Globulin 5.1 g/dL Albumin/Globulin Ratio 0.4 (1.0-2.7) L Current Medications Medications (Trade) Dose Ordered Sig/Kayy Route PRN Reason Start Time Stop Time Status Last Admin Dose Admin Acetaminophen (Tylenol) 650 mg Q6H PRN ORAL Mild Pain/Temp > 100.5 07/14/17 19:00 08/13/17 18:59 07/21/17 12:18 Acetaminophen/ Hydrocodone Bitart ([place] 5/325) 1 tab Q4H PRN ORAL Moderate Pain (Pain Scale 4-6) 07/30/17 09:00 08/06/17 08:59 08/01/17 11:37 Ampicillin 2 gm/ Dextrose 110 ml @ 220 mls/hr EVERY 6 HOURS IVPB 07/30/17 18:00 08/06/17 17:59 08/01/17 13:23 Calcium Carbonate (Tums) 1,000 mg Q4H PRN ORAL HEARTBURN/INDIGESTION 07/20/17 18:00 08/19/17 17:59 08/01/17 13:32 Dextrose (Dextrose 50%) STAT PRN IV Hypoglycemia 07/11/17 20:30 08/10/17 20:29 Diphenhydramine HCl (Benadryl) 25 mg Q6H PRN IVP Itching 07/25/17 17:00 08/24/17 16:59 08/01/17 07:32 Finasteride (Proscar) 5 mg DAILY ORAL 07/13/17 09:00 08/12/17 08:59 08/01/17 09:07 Heparin Sodium (Porcine) (Heparin 5000 units/ml) 5,000 units EVERY 12 HOURS SUBQ 08/01/17 21:00 08/22/17 21:00 Hydromorphone HCl (Dilaudid) 2 mg Q4H PRN IVP PAIN 4-10 07/29/17 09:01 08/05/17 09:00 08/01/17 13:24 Lansoprazole (Prevacid) 30 mg DAILY ORAL 07/12/17 09:00 08/11/17 08:59 08/01/17 09:07 Linezolid (Zyvox) 600 mg EVERY 12 HOURS ORAL 07/23/17 21:00 08/03/17 20:59 08/01/17 09:07 Meropenem 1 gm/ Dextrose 110 ml @ 220 mls/hr Q8HR@0300,1100,1900 IVPB 07/31/17 19:00 08/05/17 18:59 08/01/17 11:37 Nitroglycerin (Ntg) 0.4 mg Q5MIN X 3 DOSES PRN SL Prn Chest Pain 07/11/17 20:32 08/09/17 20:31 Ondansetron HCl (Zofran) 4 mg Q6H PRN IVP Nausea & Vomiting 07/11/17 20:32 08/10/17 20:31 08/01/17 11:37 Potassium Chloride (K-Dur) 40 meq DAILY ORAL 07/20/17 09:00 08/19/17 08:59 08/01/17 09:07 Risperidone (RisperDAL) 4 mg BEDTIME ORAL 07/23/17 21:00 08/22/17 20:59 07/31/17 20:57 Sodium Chloride 1,000 ml @ 50 mls/hr Q20H IV 07/20/17 12:54 08/19/17 12:53 07/31/17 20:59 Temazepam (Restoril) 15 mg HSPRN PRN ORAL Insomnia 08/01/17 21:00 08/08/17 20:59 Chhaya Menendez M.D. Aug 01, 2017 15:50
[2017-08-01 16:00] VITALS: BP 108/59
[2017-08-01] MEDS ORDERED: Tubing IV Secondary IV ONE (16:53)
[2017-08-01] MEDS: Fluconazole 100mg tab ORAL SCH (17:36)
[2017-08-01 19:37] VITALS: BP 96/56
--- NOTE | 2017-08-01 20:07 | General Progress Note ---
Assessment/Plan Assessment/Plan Schizophrenia CPT Encephalopathy PLAN: - increase the risperidone to 4 mg at bedtime. Subjective Allergies: Coded Allergies: No Known Allergies (Unverified , 01/20/17) Subjective the pt is calmer more organized. not motivated low energy more depressed and anhedonic Objective Last 24 Hour Vital Signs Date Time Temp Pulse Resp B/P (MAP) Pulse Ox O2 Delivery O2 Flow Rate FiO2 08/01/17 19:37 98.2 106 20 96/56 93 Room Air 98.2 08/01/17 16:00 97.0 101 21 108/59 95 97.0 08/01/17 16:00 Room Air 08/01/17 12:00 Room Air 08/01/17 12:00 98.0 136 21 101/72 96 98.0 08/01/17 08:31 Room Air 08/01/17 08:31 98.4 111 20 108/69 95 98.4 08/01/17 03:55 98.1 108 20 109/71 91 Room Air 98.1 08/01/17 00:00 Room Air 07/31/17 23:31 98.1 107 18 101/64 94 98.1 Intake and Output 07/31/17 08/01/17 19:00 07:00 Intake Total 1340 ml 730 ml Output Total 310 ml 103 ml Balance 1030 ml 627 ml Intake Oral 720 ml 100 ml IV Total 620 ml 630 ml Stool Total 300 ml 100 ml Drainage Total 10 ml 3 ml # Voids 3 3 Laboratory Tests 08/01/17 05:35: White Blood Count 14.5H, Red Blood Count 3.35L, Hemoglobin 10.3L, Hematocrit 29.9L, Mean Corpuscular Volume 89, Mean Corpuscular Hemoglobin 30.7, Mean Corpuscular Hemoglobin Concent 34.4, Red Cell Distribution Width 13.9, Platelet Count 361, Mean Platelet Volume 4.8L, Neutrophils (%) (Auto) , Lymphocytes (%) ( Auto) , Monocytes (%) (Auto) , Eosinophils (%) (Auto) , Basophils (%) (Auto) , Differential Total Cells Counted 100, Neutrophils % (Manual) 86H, Lymphocytes % (Manual) 7L, Monocytes % (Manual) 6, Eosinophils % (Manual) 0, Basophils % ( Manual) 1, Band Neutrophils 0, Platelet Estimate Adequate, Platelet Morphology Normal, Hypochromasia 1+, Sodium Level 132L, Potassium Level 4.7, Chloride Level 93L, Carbon Dioxide Level 37H, Anion Gap 2L, Blood Urea Nitrogen 6L, Creatinine 0.7, Estimat Glomerular Filtration Rate > 60, Glucose Level 117H, Calcium Level 8.9, Total Bilirubin 0.4, Aspartate Amino Transf (AST/SGOT) 15, Alanine Aminotransferase (ALT/SGPT) 11L, Alkaline Phosphatase 133H, Total Protein 7.0, Albumin 1.9L, Globulin 5.1, Albumin/Globulin Ratio 0.4L Height (Feet): 5 Height (Inches): 9.00 Weight (Pounds): 136 Idalia Montanez M.D. Aug 01, 2017 20:07
[2017-08-02] VITALS (7 sets, daily range): BP systolic 97–116; BP diastolic 58–74
[2017-08-02] MEDS: DiphenhydrAMINE 50mg/ml Inj IVP PRN ×2 (01:48→15:49)
[2017-08-02] MEDS: Meropenem 1 GM in D5W 110 ML IVPB SCH ×3 (03:20→18:35)
[2017-08-02] MEDS: Norco 5mg/325mg tab ORAL PRN ×2 (04:40→15:50)
[2017-08-02] MEDS: D5W IVPB SCH ×2 (05:22→12:43)
[2017-08-02] MEDS: AMPICILLIN IVPB SCH ×2 (05:22→12:43)
[2017-08-02 07:13] LABS: ANION GAP 4 mmol/L (5-15); BLOOD UREA NITROGEN 5 mg/dL (7-18); CALCIUM 8.5 MG/DL (8.5-10.1); CARBON DIOXIDE 35 MMOL/L (21-32); CHLORIDE 94 MMOL/L (98-107); CREATININE 0.7 MG/DL (0.55-1.30); POTASSIUM 3.8 MMOL/L (3.5-5.1); SODIUM 133 MMOL/L (136-145)
[2017-08-02 07:36] LABS: BASOPHILS % (AUTO) 0.6 % (0.0-2.0); EOSINOPHILS % (AUTO) 0.8 % (0.0-3.0); HEMATOCRIT 26.7 % (42.0-52.0); HEMOGLOBIN 8.8 G/DL (14.2-18.0); LYMPHOCYTES % (AUTO) 11.4 % (20.0-45.0); MEAN CORPUSCULAR VOLUME 89 FL (80-99); MONOCYTES % (AUTO) 5.3 % (1.0-10.0); NEUTROPHILS % (AUTO) 81.9 % (45.0-75.0); PLATELET COUNT 322 K/UL (150-450); RED BLOOD COUNT 2.99 M/UL (4.70-6.10); RED CELL DISTRIBUTION WIDTH 14.8 % (11.6-14.8); WHITE BLOOD COUNT 12.2 K/UL (4.8-10.8)
[2017-08-02] MEDS: Heparin 5000 units/ml inj SUBQ SCH ×2 (09:13→20:41)
--- NOTE | 2017-08-02 09:22 | Nephrology Progress Note ---
Assessment/Plan Problem List: (1) ARF (acute renal failure) (2) UTI (urinary tract infection) (3) Psychiatric disorder (4) Acute abdomen Assessment Status: WBCs wnl had multi abdominal drains acute renal failure- extended left colectomy due to perf transverse colostomy creation Plan Plan: per charles, 07/20/17 Mag and K supplement as needed DC horan DC IV PT advance diet Post op ( OP 07/08/17) Horan- 2D echo normal Ej Fx Albumin bollous monitor renal parameters K and Phos and Mag supplement as needed Subjective ROS Limited/Unobtainable: No Constitutional: Reports: malaise Objective Objective Last 24 Hour Vital Signs Date Time Temp Pulse Resp B/P (MAP) Pulse Ox O2 Delivery O2 Flow Rate FiO2 08/02/17 08:00 98.1 106 18 111/71 96 98.1 08/02/17 05:39 98.2 08/02/17 04:40 98.2 08/02/17 04:00 98.1 101 17 98/58 95 Room Air 98.1 08/02/17 02:18 98.2 08/02/17 01:48 98.2 08/02/17 00:32 98.2 108 20 97/63 91 Room Air 98.2 08/01/17 23:47 98.2 08/01/17 21:40 98.2 08/01/17 19:37 98.2 106 20 96/56 93 Room Air 98.2 08/01/17 19:30 Nasal Cannula 2.0 28 08/01/17 19:30 95 Nasal Cannula 2.0 28 08/01/17 16:00 97.0 101 21 108/59 95 97.0 08/01/17 16:00 Room Air 08/01/17 12:00 Room Air 08/01/17 12:00 98.0 136 21 101/72 96 98.0 Intake and Output 08/01/17 08/02/17 19:00 07:00 Intake Total 1490 ml 1260 ml Output Total 300 ml 158 ml Balance 1190 ml 1102 ml Intake Oral 850 ml 480 ml IV Total 640 ml 780 ml Stool Total 300 ml 150 ml Drainage Total 8 ml # Voids 4 2 Laboratory Tests 08/02/17 05:30: White Blood Count 12.2H, Red Blood Count 2.99L, Hemoglobin 8.8L, Hematocrit 26.7L, Mean Corpuscular Volume 89, Mean Corpuscular Hemoglobin 29.4, Mean Corpuscular Hemoglobin Concent 33.0, Red Cell Distribution Width 14.8, Platelet Count 322, Mean Platelet Volume 5.1L, Neutrophils (%) (Auto) 81.9H, Lymphocytes (%) (Auto) 11.4L, Monocytes (%) (Auto) 5.3, Eosinophils (%) (Auto) 0.8, Basophils (%) (Auto) 0.6, Sodium Level 133L, Potassium Level 3.8, Chloride Level 94L, Carbon Dioxide Level 35H, Anion Gap 4L, Blood Urea Nitrogen 5L, Creatinine 0.7, Estimat Glomerular Filtration Rate > 60, Glucose Level 96, Calcium Level 8.5, C-Reactive Protein, Quantitative 25.1H Height (Feet): 5 Height (Inches): 9.00 Weight (Pounds): 136 General Appearance: no apparent distress Cardiovascular: tachycardia Respiratory/Chest: decreased breath sounds Abdomen: distended Objective no other change NOEMY MARK Aug 02, 2017 09:22
--- NOTE | 2017-08-02 09:42 | Pulmonology Progress Note ---
Assessment/Plan Assessment/Plan ASSESSMENT perforation of viscus pneumoperitoneum pleuritic chest pain ( likely due to perforated viscus) -perforated left colon with prolonged inflammatory reaction, gross spillage, and bowel ischemia. -Intra-abdominal abscess. s/p 3/ Exploratory laparotomy, extended left colectomy, transverse colostomy creation, evacuation of intra-abdominal abscess, abdominal washout with drain placement. s/p 07/19 aspiration and drainage of intraperitoneal fluid collection by IR- 150cc Large complex intra-abdominal abscess Midline wound dehiscence. s/p 07/20 Exploratory laparotomy with evacuation of intra-abdominal abscess with debridement of necrotic infected tissues. abdominal washout and drain placement ARF -resolved hyperkalemia-resolved rhabdo-resolved acute on chronic constipation hx of recent colonoscopy at [facility] schizophrenia, paranoid type HTN COPD Smoker Amphetamine abuse PLAN OF CARE MS floor gentle IVF diet, advance as tolerated abx ID follows , last abd fluid cx + Enterococci, Prevotella; prior - E coli ESBL, Enterococci, bacteroides , blood cx negative stool C dif negative s/p surgery , then drainage by IR and then reexploration due to large complicated IA abscess s/p 2 drain placements, now removed colostomy functional with good output, colostomy care ? cause of leuk- per surgery unlikely abdominal CT A/P pendign for today CXR 07/31 - Improved left basilar consolidation, since 07/15/2017. Some residual atelectasis and possibly minimal residual consolidation Decreased but persistent pleural fluid on the left Resolved right mid and lower lung consolidation. Some residual perihilar atelectasis New or increased small right pleural effusion unlikely PNA, no pulm complaints, no fever encourage use of IS check CXR in am pain management , off RN MED SURG- on IV Dilaudid prn, and [place] prn for breakthrough pain ; pain controlled IS while in the bed and encourage to use, O2 HHN prn OOB as tolerated with PT/OT, encourage ambulation- unwilling to ambulate wound care DVT GI prophylaxis GI follows ARF resolved, monitor renal parameters, lytes, correct as needed, avoid nephrotoxic nephro follows investment counselor on abstinence from street drugs investment counselor on abstinence from smoking declined nicotine patch psych follows psych meds as per psych recs initially: troponin x 2 negative, no acute ischemic changes on ECF/tele , thus no evidence of acute DE cardio eval appreciated O2 HHN prn Venous Duplex BLE negative stat CTA chest done 3/4 with evidence perforation of hollow viscus with extensive amount of free air in the upper abdomen and some free fluid is well.; no evidence of PE inial surgery 07/09 ECHO with pEF need teaching for colostomy by wound nurse ? placement where addendum: discussed with surgeon,cleared for dc to SNF discussed with ID re abx awaiting for CT A/P report to put abx in med recon case discussed and evaluated by supervising physician Subjective Allergies: Coded Allergies: No Known Allergies (Unverified , 01/20/17) Subjective leucocytosis trending down, afebrile drains dc pain controlled Objective Last 24 Hour Vital Signs Date Time Temp Pulse Resp B/P (MAP) Pulse Ox O2 Delivery O2 Flow Rate FiO2 08/02/17 08:00 98.1 106 18 111/71 96 98.1 08/02/17 05:39 98.2 08/02/17 04:40 98.2 08/02/17 04:00 98.1 101 17 98/58 95 Room Air 98.1 08/02/17 02:18 98.2 08/02/17 01:48 98.2 08/02/17 00:32 98.2 108 20 97/63 91 Room Air 98.2 08/01/17 23:47 98.2 08/01/17 21:40 98.2 08/01/17 19:37 98.2 106 20 96/56 93 Room Air 98.2 08/01/17 19:30 Nasal Cannula 2.0 28 08/01/17 19:30 95 Nasal Cannula 2.0 28 08/01/17 16:00 97.0 101 21 108/59 95 97.0 08/01/17 16:00 Room Air 08/01/17 12:00 Room Air 08/01/17 12:00 98.0 136 21 101/72 96 98.0 Intake and Output 08/01/17 08/02/17 19:00 07:00 Intake Total 1490 ml 1260 ml Output Total 300 ml 158 ml Balance 1190 ml 1102 ml Intake Oral 850 ml 480 ml IV Total 640 ml 780 ml Stool Total 300 ml 150 ml Drainage Total 8 ml # Voids 4 2 Objective General Appearance: no acute distress, A/A/O x 3 male HEENT: normocephalic, atraumatic, anicteric Respiratory/Chest: lungs clear, no respiratory distress Cardiovascular: normal rate, no JVD Abdomen: normal bowel sounds, Colostomy with stool, dressing C/D/I Extremities: no edema, pedal pulses normal Neurologic/Psychiatric: alert, oriented x 3, responsive Musculoskeletal: normal muscle bulk Microbiology Date/Time Source Procedure Growth Status 07/31/17 16:40 Blood Blood Culture - Preliminary NO GROWTH AFTER 24 HOURS Resulted 07/31/17 16:10 Blood Blood Culture - Preliminary NO GROWTH AFTER 24 HOURS Resulted 07/31/17 18:00 Stool Clostridium difficile Toxin Assay - Final Complete Laboratory Tests 08/02/17 05:30: White Blood Count 12.2H, Red Blood Count 2.99L, Hemoglobin 8.8L, Hematocrit 26.7L, Mean Corpuscular Volume 89, Mean Corpuscular Hemoglobin 29.4, Mean Corpuscular Hemoglobin Concent 33.0, Red Cell Distribution Width 14.8, Platelet Count 322, Mean Platelet Volume 5.1L, Neutrophils (%) (Auto) 81.9H, Lymphocytes (%) (Auto) 11.4L, Monocytes (%) (Auto) 5.3, Eosinophils (%) (Auto) 0.8, Basophils (%) (Auto) 0.6, Sodium Level 133L, Potassium Level 3.8, Chloride Level 94L, Carbon Dioxide Level 35H, Anion Gap 4L, Blood Urea Nitrogen 5L, Creatinine 0.7, Estimat Glomerular Filtration Rate > 60, Glucose Level 96, Calcium Level 8.5, C-Reactive Protein, Quantitative 25.1H Current Medications Medications (Trade) Dose Ordered Sig/Kayy Route PRN Reason Start Time Stop Time Status Last Admin Dose Admin Acetaminophen (Tylenol) 650 mg Q6H PRN ORAL Mild Pain/Temp > 100.5 07/14/17 19:00 08/13/17 18:59 07/21/17 12:18 Acetaminophen/ Hydrocodone Bitart ([place] 5/325) 1 tab Q4H PRN ORAL Moderate Pain (Pain Scale 4-6) 07/30/17 09:00 08/06/17 08:59 08/02/17 04:40 Ampicillin 2 gm/ Dextrose 110 ml @ 220 mls/hr EVERY 6 HOURS IVPB 07/30/17 18:00 08/06/17 17:59 08/02/17 05:22 Calcium Carbonate (Tums) 1,000 mg Q4H PRN ORAL HEARTBURN/INDIGESTION 07/20/17 18:00 08/19/17 17:59 08/01/17 13:32 Dextrose (Dextrose 50%) STAT PRN IV Hypoglycemia 07/11/17 20:30 08/10/17 20:29 Diphenhydramine HCl (Benadryl) 25 mg Q6H PRN IVP Itching 07/25/17 17:00 08/24/17 16:59 08/02/17 01:48 Finasteride (Proscar) 5 mg DAILY ORAL 07/13/17 09:00 08/12/17 08:59 08/02/17 09:02 Fluconazole (Diflucan) 200 mg Q24H ORAL 08/01/17 16:00 08/08/17 15:59 08/01/17 17:36 Heparin Sodium (Porcine) (Heparin 5000 units/ml) 5,000 units EVERY 12 HOURS SUBQ 08/01/17 21:00 08/22/17 21:00 08/02/17 09:13 Hydromorphone HCl (Dilaudid) 2 mg Q4H PRN IVP PAIN 4-10 07/29/17 09:01 08/05/17 09:00 08/02/17 01:48 Lansoprazole (Prevacid) 30 mg DAILY ORAL 07/12/17 09:00 08/11/17 08:59 08/02/17 09:02 Linezolid (Zyvox) 600 mg EVERY 12 HOURS ORAL 07/23/17 21:00 08/03/17 20:59 08/02/17 09:02 Meropenem 1 gm/ Dextrose 110 ml @ 220 mls/hr Q8HR@0300,1100,1900 IVPB 07/31/17 19:00 08/05/17 18:59 08/02/17 03:20 Nitroglycerin (Ntg) 0.4 mg Q5MIN X 3 DOSES PRN SL Prn Chest Pain 07/11/17 20:32 08/09/17 20:31 Ondansetron HCl (Zofran) 4 mg Q6H PRN IVP Nausea & Vomiting 07/11/17 20:32 08/10/17 20:31 08/02/17 04:40 Potassium Chloride (K-Dur) 40 meq DAILY ORAL 07/20/17 09:00 08/19/17 08:59 08/02/17 09:03 Risperidone (RisperDAL) 4 mg BEDTIME ORAL 07/23/17 21:00 08/22/17 20:59 08/01/17 21:40 Sodium Chloride 1,000 ml @ 50 mls/hr Q20H IV 07/20/17 12:54 08/19/17 12:53 08/01/17 23:55 Temazepam (Restoril) 15 mg HSPRN PRN ORAL Insomnia 08/01/17 21:00 08/08/17 20:59 Clay ([facility])Gabbi NP Aug 02, 2017 09:42
--- NOTE | 2017-08-02 10:36 | GI Progress Note ---
Assessment/Plan Problems: (1) Psychiatric disorder ICD Codes: F99 - Mental disorder, not otherwise specified SNOMED: 17492374, 770341754 (2) Amphetamine abuse ICD Codes: F15.10 - Other stimulant abuse, uncomplicated SNOMED: 00107387 (3) Opiate dependence ICD Codes: F11.20 - Opioid dependence, uncomplicated SNOMED: 68702647 Qualifiers: Qualified Codes: F11.20 - Opioid dependence, uncomplicated (4) Perforated abdominal viscus SNOMED: 300517346 Status: stable Status Narrative Discussed with Dr. Castro. Assessment/Plan s/p Exploratory laparotomy, partial bowel resection fu surgical recs IVFs diet adv per surgery colostomy care prn transfusions serial imaging prn pain mgmt fu labs Subjective Subjective doing better c/o of abdominal pain wants pain meds Objective Last 24 Hour Vital Signs Date Time Temp Pulse Resp B/P (MAP) Pulse Ox O2 Delivery O2 Flow Rate FiO2 08/02/17 08:00 98.1 106 18 111/71 96 98.1 08/02/17 05:39 98.2 08/02/17 04:40 98.2 08/02/17 04:00 98.1 101 17 98/58 95 Room Air 98.1 08/02/17 02:18 98.2 08/02/17 01:48 98.2 08/02/17 00:32 98.2 108 20 97/63 91 Room Air 98.2 08/01/17 23:47 98.2 08/01/17 21:40 98.2 08/01/17 19:37 98.2 106 20 96/56 93 Room Air 98.2 08/01/17 19:30 Nasal Cannula 2.0 28 08/01/17 19:30 95 Nasal Cannula 2.0 28 08/01/17 16:00 97.0 101 21 108/59 95 97.0 08/01/17 16:00 Room Air 08/01/17 12:00 Room Air 08/01/17 12:00 98.0 136 21 101/72 96 98.0 Intake and Output 08/01/17 08/02/17 19:00 07:00 Intake Total 1490 ml 1260 ml Output Total 300 ml 158 ml Balance 1190 ml 1102 ml Intake Oral 850 ml 480 ml IV Total 640 ml 780 ml Stool Total 300 ml 150 ml Drainage Total 8 ml # Voids 4 2 Laboratory Tests Test 08/02/17 05:30 White Blood Count 12.2 K/UL (4.8-10.8) H Red Blood Count 2.99 M/UL (4.70-6.10) L Hemoglobin 8.8 G/DL (14.2-18.0) L Hematocrit 26.7 % (42.0-52.0) L Mean Corpuscular Volume 89 FL (80-99) Mean Corpuscular Hemoglobin 29.4 PG (27.0-31.0) Mean Corpuscular Hemoglobin Concent 33.0 G/DL (32.0-36.0) Red Cell Distribution Width 14.8 % (11.6-14.8) Platelet Count 322 K/UL (150-450) Mean Platelet Volume 5.1 FL (6.5-10.1) L Neutrophils (%) (Auto) 81.9 % (45.0-75.0) H Lymphocytes (%) (Auto) 11.4 % (20.0-45.0) L Monocytes (%) (Auto) 5.3 % (1.0-10.0) Eosinophils (%) (Auto) 0.8 % (0.0-3.0) Basophils (%) (Auto) 0.6 % (0.0-2.0) Sodium Level 133 MMOL/L (136-145) L Potassium Level 3.8 MMOL/L (3.5-5.1) Chloride Level 94 MMOL/L (98-107) L Carbon Dioxide Level 35 MMOL/L (21-32) H Anion Gap 4 mmol/L (5-15) L Blood Urea Nitrogen 5 mg/dL (7-18) L Creatinine 0.7 MG/DL (0.55-1.30) Estimat Glomerular Filtration Rate > 60 mL/min (>60) Glucose Level 96 MG/DL (74-106) Calcium Level 8.5 MG/DL (8.5-10.1) C-Reactive Protein, Quantitative 25.1 mg/dL (0.00-0.90) H Height (Feet): 5 Height (Inches): 9.00 Weight (Pounds): 136 General Appearance: WD/WN, no apparent distress, alert Cardiovascular: normal rate Respiratory/Chest: normal breath sounds, no respiratory distress Abdominal Exam: normal bowel sounds, non tender, soft, other - colostomy Extremities: normal range of motion, non-tender Samia Albarran N.P. Aug 02, 2017 10:36
[2017-08-02] MEDS ORDERED: RESTORIL15 MG ORAL (11:42)
[2017-08-02] MEDS ORDERED: LANSOPRAZOLE30 MG ORAL (11:42)
[2017-08-02] MEDS ORDERED: NORCO 5-325 TA1 EACH ORAL (11:42)
[2017-08-02] MEDS ORDERED: FINASTERIDE5 MG ORAL (11:42)
[2017-08-02] MEDS ORDERED: RISPERDAL2 MG ORAL (11:42)
[2017-08-02] MEDS ORDERED: TUMS500 MG ORAL (11:42)
[2017-08-02] MEDS ORDERED: ACETAMINOPHEN325 M1 ORAL (11:42)
[2017-08-02] MEDS ORDERED: HEPARIN SO5000 UNIT2 SUBQ (11:42)
[2017-08-02] MEDS ORDERED: HYDROMORPHO2 MG/1 M5 IVP (11:42)
--- NOTE | 2017-08-02 13:39 | General Progress Note ---
Assessment/Plan Assessment/Plan Schizophrenia CPT Encephalopathy PLAN: - increase the risperidone to 4 mg at bedtime. Subjective Date patient seen: Aug 02, 2017 Neurologic/Psychiatric: Reports: anxiety, depressed Allergies: Coded Allergies: No Known Allergies (Unverified , 01/20/17) Subjective the pt is calmer more organized. not motivated low energy more depressed and anhedonic Objective Last 24 Hour Vital Signs Date Time Temp Pulse Resp B/P (MAP) Pulse Ox O2 Delivery O2 Flow Rate FiO2 08/02/17 12:00 98.2 85 19 106/68 96 98.2 08/02/17 11:23 98.1 08/02/17 10:53 98.1 08/02/17 08:00 98.1 106 18 111/71 96 98.1 08/02/17 05:39 98.2 08/02/17 04:40 98.2 08/02/17 04:00 98.1 101 17 98/58 95 Room Air 98.1 08/02/17 01:48 98.2 08/02/17 00:32 98.2 108 20 97/63 91 Room Air 98.2 08/01/17 23:47 98.2 08/01/17 21:40 98.2 08/01/17 19:37 98.2 106 20 96/56 93 Room Air 98.2 08/01/17 19:30 Nasal Cannula 2.0 28 08/01/17 19:30 95 Nasal Cannula 2.0 28 08/01/17 16:00 97.0 101 21 108/59 95 97.0 08/01/17 16:00 Room Air Intake and Output 08/01/17 08/02/17 19:00 07:00 Intake Total 1490 ml 1260 ml Output Total 300 ml 158 ml Balance 1190 ml 1102 ml Intake Oral 850 ml 480 ml IV Total 640 ml 780 ml Stool Total 300 ml 150 ml Drainage Total 8 ml # Voids 4 2 Laboratory Tests 08/02/17 05:30: White Blood Count 12.2H, Red Blood Count 2.99L, Hemoglobin 8.8L, Hematocrit 26.7L, Mean Corpuscular Volume 89, Mean Corpuscular Hemoglobin 29.4, Mean Corpuscular Hemoglobin Concent 33.0, Red Cell Distribution Width 14.8, Platelet Count 322, Mean Platelet Volume 5.1L, Neutrophils (%) (Auto) 81.9H, Lymphocytes (%) (Auto) 11.4L, Monocytes (%) (Auto) 5.3, Eosinophils (%) (Auto) 0.8, Basophils (%) (Auto) 0.6, Sodium Level 133L, Potassium Level 3.8, Chloride Level 94L, Carbon Dioxide Level 35H, Anion Gap 4L, Blood Urea Nitrogen 5L, Creatinine 0.7, Estimat Glomerular Filtration Rate > 60, Glucose Level 96, Calcium Level 8.5, C-Reactive Protein, Quantitative 25.1H Height (Feet): 5 Height (Inches): 9.00 Weight (Pounds): 136 Idalia Montanez M.D. Aug 02, 2017 13:39
--- NOTE | 2017-08-02 14:32 | Diagnostic Imaging Report ---
Clinical Indication: Left upper quadrant pain, status post multiple surgeries Technique: Patient given oral contrast. IV administration nonionic contrast. Venous phase spiral acquisition obtained through the abdomen and pelvis. Multiplanar reconstructions were generated. Total dose length product 540.92 mGycm. CTDIvol(s) 10.28 mGy. Dose reduction achieved using automated exposure control Comparison: 07/18/2017 Findings: Previously demonstrated large left subdiaphragmatic fluid collection has largely resolved. Trace fluid is still seen between the dome of the diaphragm and the spleen, tracking into the splenic hilum, along the anterior border of the spleen, and into the left paracolic gutter. The previously demonstrated right upper quadrant fluid collection is largely resolved, with only a thin rim of residual fluid seen medial to the tip of the right hepatic lobe. However, there are now 2 fluid collections in the liver which were not evident previously. Both of these are located in segment 4A. One is at the dome, measures 3.3 x 1.8 cm. The second larger one is more inferior and anterior, measuring 5.6 x 4 cm. These do not demonstrate any rim enhancement. Previously demonstrated surgical drains have been removed. A few residual bubbles of gas are seen in the anterior peritoneal space. Open midline incision is again demonstrated. There is mild congestion of the mesentery which appears slightly increased from the previous exam. The duodenum and proximal jejunum are dilated, gradually becoming more normal in caliber distally. However, the ingested contrast is seen to traverse all the way through the entirety of the small bowel, into the entire residual colon and passing into the transverse colostomy. The appendix is not definitely demonstrated. Again demonstrated is a Jazz procedure. The remainder of the liver is unremarkable. The gallbladder is unremarkable. There is no biliary ductal dilatation. The pancreas is unremarkable. The spleen is unremarkable. However, there are splenic hilar varices and small gastric varices demonstrated, in retrospect also evident previously. The adrenals and left kidney are unremarkable. The right kidney demonstrates a subcentimeter low attenuation lesion which is too small to characterize. No pelvic mass or adenopathy. There is air within the bladder. There is a moderate size right pleural effusion. There is trace pleural fluid on the left. There is atelectasis and consolidation at both lung bases. The bones demonstrate degenerative spondylosis changes. Several low-attenuation foci are seen within the right iliac bone, also demonstrated previously, as well as one within the posterior left iliac bone Impression: Mostly resolved left upper quadrant and right upper quadrant fluid collections, post surgical evacuation. Minimal residual fluid as described. Appearance of the residual fluid is nonspecific as regards whether or not infected Other postsurgical changes, as described, including the minimal residual pneumoperitoneum, surgical drain removal 2 new fluid collections within the liver, could represent small hepatic abscesses versus noninfected acquired fluid collections, possibly related to surgical trauma Dilated proximal small bowel, gradually narrowing to normal caliber more distally. No evidence of obstruction, as ingested contrast is seen to traverse the entirety of the GI tract Small splenic hilar, gastric varices. This, in combination with mesenteric congestion, could indicate portal hypertension. However, no morphologic changes of the liver to suggest cirrhosis are evident Subcentimeter low-attenuation right renal lesion, too small to characterize, most likely benign simple cysts. No further follow-up necessary Moderate right pleural effusion, slightly decreased in size from the previous study. Trace left pleural effusion, significantly decreased in size from the previous study. Associated pulmonary basilar parenchymal atelectasis Low-attenuation foci within the iliac bones, in retrospect evident previously. Given the absence of osseous abnormalities elsewhere, these are not likely to represent metastatic/bullae deposits. Nonetheless, bone scan is recommended to rule out any active osteolytic process The CT scanner at [facility] is accredited by the [employer] and the scans are performed using protocols designed to limit radiation exposure to as low as reasonably achievable to attain images of sufficient resolution adequate for diagnostic evaluation.
[2017-08-02] MEDS: Fluconazole 100mg tab ORAL SCH (15:49)
--- NOTE | 2017-08-02 16:10 | General Surgery Progress Note ---
General Surgery-Progress Note Subjective Procedure Performed exploratory laparotomy, abdominal washout, evacuation of abscess, drain placement and abdominal closure Symptoms: improved Additional Comments no acute event. Objective Last 24 Hour Vital Signs Date Time Temp Pulse Resp B/P (MAP) Pulse Ox O2 Delivery O2 Flow Rate FiO2 08/02/17 15:50 98.2 08/02/17 12:00 98.2 85 19 106/68 96 98.2 08/02/17 11:23 98.1 08/02/17 10:53 98.1 08/02/17 08:00 98.1 106 18 111/71 96 98.1 08/02/17 05:39 98.2 08/02/17 04:40 98.2 08/02/17 04:00 98.1 101 17 98/58 95 Room Air 98.1 08/02/17 01:48 98.2 08/02/17 00:32 98.2 108 20 97/63 91 Room Air 98.2 08/01/17 23:47 98.2 08/01/17 21:40 98.2 08/01/17 19:37 98.2 106 20 96/56 93 Room Air 98.2 08/01/17 19:30 Nasal Cannula 2.0 28 08/01/17 19:30 95 Nasal Cannula 2.0 28 I&O Intake and Output 08/01/17 08/02/17 19:00 07:00 Intake Total 1490 ml 1260 ml Output Total 300 ml 158 ml Balance 1190 ml 1102 ml Intake Oral 850 ml 480 ml IV Total 640 ml 780 ml Stool Total 300 ml 150 ml Drainage Total 8 ml # Voids 4 2 Wound: clean, dry Drains: none Respiratory: clear Abdomen: soft, flat, non-tender, present bowel sounds Extremities: no edema, no tenderness, no cyanosis Laboratory Tests Test 08/02/17 05:30 White Blood Count 12.2 K/UL (4.8-10.8) H Red Blood Count 2.99 M/UL (4.70-6.10) L Hemoglobin 8.8 G/DL (14.2-18.0) L Hematocrit 26.7 % (42.0-52.0) L Mean Corpuscular Volume 89 FL (80-99) Mean Corpuscular Hemoglobin 29.4 PG (27.0-31.0) Mean Corpuscular Hemoglobin Concent 33.0 G/DL (32.0-36.0) Red Cell Distribution Width 14.8 % (11.6-14.8) Platelet Count 322 K/UL (150-450) Mean Platelet Volume 5.1 FL (6.5-10.1) L Neutrophils (%) (Auto) 81.9 % (45.0-75.0) H Lymphocytes (%) (Auto) 11.4 % (20.0-45.0) L Monocytes (%) (Auto) 5.3 % (1.0-10.0) Eosinophils (%) (Auto) 0.8 % (0.0-3.0) Basophils (%) (Auto) 0.6 % (0.0-2.0) Sodium Level 133 MMOL/L (136-145) L Potassium Level 3.8 MMOL/L (3.5-5.1) Chloride Level 94 MMOL/L (98-107) L Carbon Dioxide Level 35 MMOL/L (21-32) H Anion Gap 4 mmol/L (5-15) L Blood Urea Nitrogen 5 mg/dL (7-18) L Creatinine 0.7 MG/DL (0.55-1.30) Estimat Glomerular Filtration Rate > 60 mL/min (>60) Glucose Level 96 MG/DL (74-106) Calcium Level 8.5 MG/DL (8.5-10.1) C-Reactive Protein, Quantitative 25.1 mg/dL (0.00-0.90) H Assessment Post-op Diagnosis abdominal dehiscence, intraabdominal abscess Plan Problems: (1) Perforated abdominal viscus Assessment & Plan: perforated abdominal viscus as noted on CT. exam with peritonitis generalized but with focus in LLQ. history of psych illness but currently AAOx4 and cooperative with exam. poor historian. possible drug seeking behavior. s/p Ex lap with abdominal washout, left colectomy and creation of transverse colostomy. Noted to have larger perforation in sigmoid likely stercoarl given operative findings. large left perisplenic abscess evacuated. drains placed. post operatively improved but after a few days noted to have purulent drainage out of left upper quadrant drain. CT demonstrated reaccumulation of large complex abscess despite extensive washout on initial operation. IR drain placed and pus evacuated but could not resolve complex collection. micro with multiorganism. midline wound dehiscence. decision made for re-exploration with washout, drains, and midline closure. s/p re-exploration with washout, drains, and midline closure on 07/20. large complex abscess noted, evacuated, washout, drains placed. midline fascia closed. doing well. recovering. improved pain afebrile, HD stable, labs reviewed. leukocytosis All surgical drains removed now. upon removal minimal serous output. exam benign. Repeat CT noted. no abscess noted. liver fluid collections do not look like abscess and are likely subcapsular trauma from surgery. -cont IV Abx. appreciate ID input. -midline wound packing and dressings TID -at this point he looks much better and is improving. just has slight leukocytosis which has been intermittent for some time now despite clinically improved. abdomen benign. wound clean. ostomy functional. can consider d/c planning to SNF for IV ABX and recovery okay to d/c from surgical standpoint to SNF with IV Abx. should have repeat CT in 1 month Gilberto Michelle Aug 02, 2017 16:10
--- NOTE | 2017-08-02 16:36 | Infectious Diseases Prog Note ---
Assessment/Plan Assessment/Plan ASSESSMENT: The patient is a 46-year-old male with; Bowel perf w/ development of 2 Abscess (subphrenic and pelvic) Cx: E coli( ESBL) and ENTEROCOCCUS AVIUM (turcios S) and Bact Fragilis - s/p I+D x2- now almost complete resolution of abscess -CT abd/p w/ 08/02: Mostly resolved left upper quadrant and right upper quadrant fluid collections, post surgical evacuation. Minimal residual fluid as described. Appearance of the residual fluid is nonspecific as regards whether or not infected. Other postsurgical changes, as described, including the minimal residual pneumoperitoneum, surgical drain removal. 2 new fluid collections within the liver, could represent small hepatic abscesses versus noninfected acquired fluid collections, possibly related to surgical trauma. Dilated proximal small bowel, gradually narrowing to normal caliber more distally. No evidence of obstruction, as ingested contrast is seen to traverse the entirety of the GI tract. Small splenic hilar, gastric varices. This, in combination with mesenteric congestion, could indicate portal hypertension. However, no morphologic changes of the liver to suggest cirrhosis are evident. Moderate right pleural effusion, slightly decreased in size from the previous study. Trace left pleural effusion, significantly decreased in size from the previous study. Gas within the bladder. Probably related to recent instrumentation. If there is no history of recent Dickens catheterization, however , the possibility of emphysematous cystitis should be considered -s/p exploratory laparotomy, abdominal washout, evacuation of abscess, drain placement and abdominal closure 07/20; cx not received in the lab -s/p CT guided drainage APOLLO fluid collection 07/19: Aspiration and drainage of left upper quadrant collection, yielding 150 mL of carin pus. Note that the collection could only be partially evacuated, however, despite confirmation of apparent adequate position of the drain.This may indicate high viscosity of the contents; cx E. fecalis (turcios S), PREVOTELLA LOESCHEII ([place]um[place]in, Clinda R; Metronidazole S) s/p ex lap with left colectomy and transverse colostomy for perforated left colon, evacuation of intrabd abscess, abd washout w/ drain placement 07/09 -CT abd/p w/ 07/18: Postsurgical changes, as described, status post transverse colectomy, Jazz procedure, and placement of multiple surgical drains. Left upper quadrant intraperitoneal fluid collection, despite the presence of a surgical drain in the center of the collection. The presence of gas bubbles within rather than floating nondependently in the collection indicate that this fluid may be viscous. 2 other significant intraperitoneal collections,which do not appear to communicate, possibly loculated. Given presence of somewhat thick enhancing rim surrounding all of these, infected collections are certainly possible ( left paracolic gutter 5.8 cmx 4.3 cm x 8.3cm and R paracolic gutter, medial and inferior to tip R hepatic lobe 8cm x 6.4cm x8cm). Other than the gas within the left upper quadrant collection, previously demonstrated pneumoperitoneum has largely resolved. Left upper quadrant thick walled small bowel loops. Possibly reactive due to adjacent inflammation, enteritis is also possible. No evidence of bowel obstruction. Gallbladder wall edema versus pericholecystic fluid. -OR findings: The omentum was significantly thickened and adhesed to the small bowel and into the left lower quadrant. There was significant inflammatory process throughout the abdomen including a thickening of almost the entire peritoneal lining. The proximal portion of the jejunum was significantly thickened and had a rind of inflammatory infectious tissue on it. left transverse and descending colon, there was significant amount of thickening and significant disease process with some areas of mild ischemia noted and in the descending colon around the descending and sigmoid junction, there was a gross perforation with grossspillage of bowel contents noted in the area. there was a fluid collection/pelvic abscess, which was evacuated. There was a fluid collection in the right upper quadrant around the liver, which was evacuated and a large left upper quadrant subphrenic abscess with significant tissue rind and thickening around the stomach, spleen, peritoneum, and diaphragm in that location. CT : Evidence of perforation of hollow viscus with extensive amount of free air in the upper abdomen and some free fluid is well. Fever/Leukocytosis, fever resolved; leukocytosis recurrent, stable -07/31 Cdiff neg -07/15 Bcx Neg ?PNA, resolving -CXR 07/31: Improved left basilar consolidation, since 07/15/2017. Some residual atelectasis and possibly minimal residual consolidation. Decreased but persistent pleural fluid on the left. Resolved right mid and lower lung consolidation. Some residual perihilar atelectasis. New or increased small right pleural effusion. Left upper quadrant surgical drain Elevated ALP , improved -Abd US: Negative for gallstones. There is borderline gallbladder wall thickening, however. Most likely, this is reactive secondary to surrounding inflammation related to recent bowel perforation and surgery for such. However, the possibility of acalculous acute cholecystitis should be considered, and consideration for nuclear medicine hepatobiliary scanning if there is high clinical suspicion history of diarrhea, SP RAMSEY: Improved HTN COPD/asthma. Smoker. History of chronic constipation. Osteoarthritis. ? CAD/NV, hx PLAN: -Continue IV Meropenem abx d#23, Fluconazole #12, Linezolid #10 until 08/10/17; ok to discharge on this regimen -weekly CBC/CMP -D/c IV V Ampicillin abx d#17 --07/21 Zosyn #4 --07/18 SP Ertapenem, PO Amoxicillin #3 --07/16 SP Cefepime #2 --07/12 SP Zosyn d# 6 --SP Rocephin d# 5 -f/u repeat Bcx x2 -Requested micro lab to add fungal, nocardia and AFB cx to latest cultures ( ordered was auto-canceled and I was not notified; cultures were not done) -surgery following -wound care -Trend WBC monitor chest x-ray. Discussed with RN, Dr Michelle and primary team, Subjective Allergies: Coded Allergies: No Known Allergies (Unverified , 01/20/17) Subjective afebrile leukocytosis improving repeat CT shows almost completely resolution of LUQ and RUQ fluid collections Objective Vital Signs Last 24 Hour Vital Signs Date Time Temp Pulse Resp B/P (MAP) Pulse Ox O2 Delivery O2 Flow Rate FiO2 08/02/17 15:50 98.2 08/02/17 12:00 98.2 85 19 106/68 96 98.2 08/02/17 11:23 98.1 08/02/17 10:53 98.1 08/02/17 08:00 98.1 106 18 111/71 96 98.1 08/02/17 05:39 98.2 08/02/17 04:40 98.2 08/02/17 04:00 98.1 101 17 98/58 95 Room Air 98.1 08/02/17 01:48 98.2 08/02/17 00:32 98.2 108 20 97/63 91 Room Air 98.2 08/01/17 23:47 98.2 08/01/17 21:40 98.2 08/01/17 19:37 98.2 106 20 96/56 93 Room Air 98.2 08/01/17 19:30 Nasal Cannula 2.0 28 08/01/17 19:30 95 Nasal Cannula 2.0 28 Height (Feet): 5 Height (Inches): 9.00 Weight (Pounds): 136 Objective General Appearance: WD/WN, no apparent distress, alert, thin Cardiovascular: normal rate Respiratory/Chest: normal breath sounds, no respiratory distress Abdominal Exam: normal bowel sounds, non tender, soft, other - colostomy Extremities: non-tender Microbiology Date/Time Source Procedure Growth Status 07/31/17 16:40 Blood Blood Culture - Preliminary NO GROWTH AFTER 24 HOURS Resulted 07/31/17 16:10 Blood Blood Culture - Preliminary NO GROWTH AFTER 24 HOURS Resulted 07/31/17 18:00 Stool Clostridium difficile Toxin Assay - Final Complete Laboratory Tests Test 08/02/17 05:30 White Blood Count 12.2 K/UL (4.8-10.8) H Red Blood Count 2.99 M/UL (4.70-6.10) L Hemoglobin 8.8 G/DL (14.2-18.0) L Hematocrit 26.7 % (42.0-52.0) L Mean Corpuscular Volume 89 FL (80-99) Mean Corpuscular Hemoglobin 29.4 PG (27.0-31.0) Mean Corpuscular Hemoglobin Concent 33.0 G/DL (32.0-36.0) Red Cell Distribution Width 14.8 % (11.6-14.8) Platelet Count 322 K/UL (150-450) Mean Platelet Volume 5.1 FL (6.5-10.1) L Neutrophils (%) (Auto) 81.9 % (45.0-75.0) H Lymphocytes (%) (Auto) 11.4 % (20.0-45.0) L Monocytes (%) (Auto) 5.3 % (1.0-10.0) Eosinophils (%) (Auto) 0.8 % (0.0-3.0) Basophils (%) (Auto) 0.6 % (0.0-2.0) Sodium Level 133 MMOL/L (136-145) L Potassium Level 3.8 MMOL/L (3.5-5.1) Chloride Level 94 MMOL/L (98-107) L Carbon Dioxide Level 35 MMOL/L (21-32) H Anion Gap 4 mmol/L (5-15) L Blood Urea Nitrogen 5 mg/dL (7-18) L Creatinine 0.7 MG/DL (0.55-1.30) Estimat Glomerular Filtration Rate > 60 mL/min (>60) Glucose Level 96 MG/DL (74-106) Calcium Level 8.5 MG/DL (8.5-10.1) C-Reactive Protein, Quantitative 25.1 mg/dL (0.00-0.90) H Current Medications Medications (Trade) Dose Ordered Sig/Kayy Route PRN Reason Start Time Stop Time Status Last Admin Dose Admin Acetaminophen (Tylenol) 650 mg Q6H PRN ORAL Mild Pain/Temp > 100.5 07/14/17 19:00 08/13/17 18:59 07/21/17 12:18 Acetaminophen/ Hydrocodone Bitart ([place] 5/325) 1 tab Q4H PRN ORAL Moderate Pain (Pain Scale 4-6) 07/30/17 09:00 08/06/17 08:59 08/02/17 15:50 Ampicillin 2 gm/ Dextrose 110 ml @ 220 mls/hr EVERY 6 HOURS IVPB 07/30/17 18:00 08/06/17 17:59 08/02/17 12:43 Calcium Carbonate (Tums) 1,000 mg Q4H PRN ORAL HEARTBURN/INDIGESTION 07/20/17 18:00 08/19/17 17:59 08/01/17 13:32 Dextrose (Dextrose 50%) STAT PRN IV Hypoglycemia 07/11/17 20:30 08/10/17 20:29 Diphenhydramine HCl (Benadryl) 25 mg Q6H PRN IVP Itching 07/25/17 17:00 08/24/17 16:59 08/02/17 15:49 Finasteride (Proscar) 5 mg DAILY ORAL 07/13/17 09:00 08/12/17 08:59 08/02/17 09:02 Fluconazole (Diflucan) 200 mg Q24H ORAL 08/01/17 16:00 08/08/17 15:59 08/02/17 15:49 Heparin Sodium (Porcine) (Heparin 5000 units/ml) 5,000 units EVERY 12 HOURS SUBQ 08/01/17 21:00 08/22/17 21:00 08/02/17 09:13 Hydromorphone HCl (Dilaudid) 2 mg Q4H PRN IVP PAIN 4-10 07/29/17 09:01 08/05/17 09:00 08/02/17 10:53 Lansoprazole (Prevacid) 30 mg DAILY ORAL 07/12/17 09:00 08/11/17 08:59 08/02/17 09:02 Linezolid (Zyvox) 600 mg EVERY 12 HOURS ORAL 07/23/17 21:00 08/03/17 20:59 08/02/17 09:02 Meropenem 1 gm/ Dextrose 110 ml @ 220 mls/hr Q8HR@0300,1100,1900 IVPB 07/31/17 19:00 08/05/17 18:59 08/02/17 11:34 Nitroglycerin (Ntg) 0.4 mg Q5MIN X 3 DOSES PRN SL Prn Chest Pain 07/11/17 20:32 08/09/17 20:31 Ondansetron HCl (Zofran) 4 mg Q6H PRN IVP Nausea & Vomiting 07/11/17 20:32 08/10/17 20:31 08/02/17 11:03 Potassium Chloride (K-Dur) 40 meq DAILY ORAL 07/20/17 09:00 08/19/17 08:59 08/02/17 09:03 Risperidone (RisperDAL) 4 mg BEDTIME ORAL 07/23/17 21:00 08/22/17 20:59 08/01/17 21:40 Sodium Chloride 1,000 ml @ 50 mls/hr Q20H IV 07/20/17 12:54 08/19/17 12:53 08/01/17 23:55 Temazepam (Restoril) 15 mg HSPRN PRN ORAL Insomnia 08/01/17 21:00 08/08/17 20:59 Chhaya Menendez M.D. Aug 02, 2017 16:36
[2017-08-02] MEDS ORDERED: ZYVOX600 MG ORAL (19:01)
[2017-08-02] MEDS ORDERED: MERREM1 GM IV (19:01)
[2017-08-03] MEDS: Meropenem 1 GM in D5W 110 ML IVPB SCH ×3 (02:25→18:32)
[2017-08-03] MEDS: Norco 5mg/325mg tab ORAL PRN ×4 (02:36→20:29)
[2017-08-03 04:24] VITALS: BP 102/66
[2017-08-03 06:18] LABS: BASOPHILS % (AUTO) 0.9 % (0.0-2.0); EOSINOPHILS % (AUTO) 1.4 % (0.0-3.0); HEMATOCRIT 25.5 % (42.0-52.0); HEMOGLOBIN 8.6 G/DL (14.2-18.0); LYMPHOCYTES % (AUTO) 15.8 % (20.0-45.0); MEAN CORPUSCULAR VOLUME 89 FL (80-99); MONOCYTES % (AUTO) 4.9 % (1.0-10.0); PLATELET COUNT 298 K/UL (150-450); RED BLOOD COUNT 2.86 M/UL (4.70-6.10); RED CELL DISTRIBUTION WIDTH 14.4 % (11.6-14.8); WHITE BLOOD COUNT 9.4 K/UL (4.8-10.8)
[2017-08-03 06:33] LABS: ANION GAP 6 mmol/L (5-15); BLOOD UREA NITROGEN 5 mg/dL (7-18); CALCIUM 8.1 MG/DL (8.5-10.1); CARBON DIOXIDE 33 MMOL/L (21-32); CHLORIDE 96 MMOL/L (98-107); CREATININE 0.6 MG/DL (0.55-1.30); SODIUM 135 MMOL/L (136-145)
[2017-08-03] MEDS: Heparin 5000 units/ml inj SUBQ SCH ×2 (08:45→20:31)
[2017-08-03 08:51] VITALS: BP 102/70
--- NOTE | 2017-08-03 09:32 | General Surgery Progress Note ---
General Surgery-Progress Note Subjective Procedure Performed exploratory laparotomy, abdominal washout, evacuation of abscess, drain placement and abdominal closure Symptoms: improved Additional Comments continues to ask for more pain medication but is improving. tolerating good oral intake. good ostomy function. no n/v/f/c. no issues. midline dressing changes going well. Objective Last 24 Hour Vital Signs Date Time Temp Pulse Resp B/P (MAP) Pulse Ox O2 Delivery O2 Flow Rate FiO2 08/03/17 08:51 97.5 89 16 102/70 96 Room Air 97.5 08/03/17 08:41 97.5 08/03/17 05:31 97.5 08/03/17 05:01 97.5 08/03/17 04:24 97.5 105 18 102/66 94 97.5 08/02/17 23:59 98.2 108 18 116/74 92 98.2 08/02/17 20:24 96 Nasal Cannula 2.0 28 08/02/17 20:24 Nasal Cannula 2.0 28 08/02/17 20:00 97.5 116 19 111/72 90 97.5 08/02/17 18:05 97.7 08/02/17 16:49 97.7 08/02/17 16:00 97.7 98 19 99/66 100 97.7 08/02/17 15:50 98.2 08/02/17 12:00 98.2 85 19 106/68 96 98.2 08/02/17 10:53 98.1 I&O Intake and Output 08/02/17 08/03/17 19:00 07:00 Intake Total 120 ml 390 ml Balance 120 ml 390 ml Intake Oral 120 ml 240 ml IV Total 150 ml # Voids 2 Wound: clean Drains: none Cardiovascular: RSR Respiratory: clear Abdomen: soft, flat, non-tender, present bowel sounds Extremities: no edema, no tenderness, no cyanosis Laboratory Tests Test 08/03/17 05:20 White Blood Count 9.4 K/UL (4.8-10.8) Red Blood Count 2.86 M/UL (4.70-6.10) L Hemoglobin 8.6 G/DL (14.2-18.0) L Hematocrit 25.5 % (42.0-52.0) L Mean Corpuscular Volume 89 FL (80-99) Mean Corpuscular Hemoglobin 30.1 PG (27.0-31.0) Mean Corpuscular Hemoglobin Concent 33.8 G/DL (32.0-36.0) Red Cell Distribution Width 14.4 % (11.6-14.8) Platelet Count 298 K/UL (150-450) Mean Platelet Volume 4.7 FL (6.5-10.1) L Neutrophils (%) (Auto) 77.0 % (45.0-75.0) H Lymphocytes (%) (Auto) 15.8 % (20.0-45.0) L Monocytes (%) (Auto) 4.9 % (1.0-10.0) Eosinophils (%) (Auto) 1.4 % (0.0-3.0) Basophils (%) (Auto) 0.9 % (0.0-2.0) Sodium Level 135 MMOL/L (136-145) L Potassium Level 4.0 MMOL/L (3.5-5.1) Chloride Level 96 MMOL/L (98-107) L Carbon Dioxide Level 33 MMOL/L (21-32) H Anion Gap 6 mmol/L (5-15) Blood Urea Nitrogen 5 mg/dL (7-18) L Creatinine 0.6 MG/DL (0.55-1.30) Estimat Glomerular Filtration Rate > 60 mL/min (>60) Glucose Level 98 MG/DL (74-106) Calcium Level 8.1 MG/DL (8.5-10.1) L Assessment Post-op Diagnosis abdominal dehiscence, intraabdominal abscess Plan Problems: (1) Perforated abdominal viscus Assessment & Plan: perforated abdominal viscus as noted on CT. exam with peritonitis generalized but with focus in LLQ. history of psych illness but currently AAOx4 and cooperative with exam. poor historian. possible drug seeking behavior. s/p Ex lap with abdominal washout, left colectomy and creation of transverse colostomy. Noted to have larger perforation in sigmoid likely stercoarl given operative findings. large left perisplenic abscess evacuated. drains placed. post operatively improved but after a few days noted to have purulent drainage out of left upper quadrant drain. CT demonstrated reaccumulation of large complex abscess despite extensive washout on initial operation. IR drain placed and pus evacuated but could not resolve complex collection. micro with multiorganism. midline wound dehiscence. decision made for re-exploration with washout, drains, and midline closure. s/p re-exploration with washout, drains, and midline closure on 07/20. large complex abscess noted, evacuated, washout, drains placed. midline fascia closed. doing well. recovering. improved pain afebrile, HD stable, labs reviewed. All surgical drains removed now. upon removal minimal serous output. exam benign. Repeat CT noted. no abscess noted. liver fluid collections do not look like abscess and are likely subcapsular trauma from surgery. leukocytosis resolved. -cont IV Abx. appreciate ID input. -midline wound packing and dressings TID -at this point he looks much better and is improving. labs okay. abdomen benign. wound clean. ostomy functional. d/c planning to SNF for IV ABX and recovery. will need to have midline dressing changes for a few weeks until ready for either primary closure or skin graft. okay to d/c from surgical standpoint to SNF with IV Abx. Gilberto Michelle Aug 03, 2017 09:32
--- NOTE | 2017-08-03 10:36 | Pulmonology Progress Note ---
Assessment/Plan Assessment/Plan ASSESSMENT perforation of viscus pneumoperitoneum pleuritic chest pain ( likely due to perforated viscus) -perforated left colon with prolonged inflammatory reaction, gross spillage, and bowel ischemia. -Intra-abdominal abscess. s/p 07/08 Exploratory laparotomy, extended left colectomy, transverse colostomy creation, evacuation of intra-abdominal abscess, abdominal washout with drain placement. s/p 07/19 aspiration and drainage of intraperitoneal fluid collection by IR- 150cc Large complex intra-abdominal abscess Midline wound dehiscence. s/p 07/20 Exploratory laparotomy with evacuation of intra-abdominal abscess with debridement of necrotic infected tissues. abdominal washout and drain placement ARF -resolved hyperkalemia-resolved rhabdo-resolved acute on chronic constipation hx of recent colonoscopy at [facility] schizophrenia, paranoid type HTN COPD Smoker Amphetamine abuse PLAN OF CARE MS floor gentle IVF diet, advance as tolerated abx ID follows , last abd fluid cx + Enterococci, Prevotella; prior - E coli ESBL, Enterococci, bacteroides , blood cx negative stool C dif negative s/p surgery , then drainage by IR and then reexploration due to large complicated IA abscess s/p 2 drain placements, now removed colostomy functional with good output, colostomy care leuk- resolved CT A/P stable CXR 07/31 - Improved left basilar consolidation, since 07/15/2017. Some residual atelectasis and possibly minimal residual consolidation Decreased but persistent pleural fluid on the left Resolved right mid and lower lung consolidation. Some residual perihilar atelectasis New or increased small right pleural effusion unlikely PNA, no pulm complaints, no fever encourage use of IS check CXR in am pain management , off [employer]- on IV Dilaudid prn, and [place] prn for breakthrough pain ; pain controlled IS while in the bed and encourage to use, O2 HHN prn OOB as tolerated with PT/OT, encourage ambulation- unwilling to ambulate wound care DVT GI prophylaxis GI follows ARF resolved, monitor renal parameters, lytes, correct as needed, avoid nephrotoxic nephro follows savings counselor on abstinence from street drugs savings counselor on abstinence from smoking declined nicotine patch psych follows psych meds as per psych recs initially: troponin x 2 negative, no acute ischemic changes on ECF/tele , thus no evidence of acute OH cardio eval appreciated O2 HHN prn Venous Duplex BLE negative stat CTA chest done 07/08 with evidence perforation of hollow viscus with extensive amount of free air in the upper abdomen and some free fluid is well.; no evidence of PE inial surgery 07/09 ECHO with pEF surgeon cleared for dc ID cleared for dc on IV abx dc to SNF today for IV abx case discussed and evaluated by supervising physician Subjective Allergies: Coded Allergies: No Known Allergies (Unverified , 01/20/17) Subjective leucocytosis resolved, , afebrile drains dc pain controlled CT A/P done 08/02 stable Objective Last 24 Hour Vital Signs Date Time Temp Pulse Resp B/P (MAP) Pulse Ox O2 Delivery O2 Flow Rate FiO2 08/03/17 09:40 97.5 08/03/17 08:51 97.5 89 16 102/70 96 Room Air 97.5 08/03/17 08:41 97.5 08/03/17 05:31 97.5 08/03/17 05:01 97.5 08/03/17 04:24 97.5 105 18 102/66 94 97.5 08/02/17 23:59 98.2 108 18 116/74 92 98.2 08/02/17 20:24 96 Nasal Cannula 2.0 28 08/02/17 20:24 Nasal Cannula 2.0 28 08/02/17 20:00 97.5 116 19 111/72 90 97.5 08/02/17 18:05 97.7 08/02/17 16:00 97.7 98 19 99/66 100 97.7 08/02/17 15:50 98.2 08/02/17 12:00 98.2 85 19 106/68 96 98.2 08/02/17 10:53 98.1 Intake and Output 08/02/17 08/03/17 19:00 07:00 Intake Total 120 ml 440 ml Balance 120 ml 440 ml Intake Oral 120 ml 240 ml IV Total 200 ml # Voids 2 Objective General Appearance: no acute distress, A/A/O x 3 male HEENT: normocephalic, atraumatic, anicteric Respiratory/Chest: lungs clear, no respiratory distress Cardiovascular: normal rate, no JVD Abdomen: normal bowel sounds, Colostomy with stool, dressing C/D/I Extremities: no edema, pedal pulses normal Neurologic/Psychiatric: alert, oriented x 3, responsive Musculoskeletal: normal muscle bulk Microbiology Date/Time Source Procedure Growth Status 07/31/17 16:40 Blood Blood Culture - Preliminary NO GROWTH AFTER 48 HOURS Resulted 07/31/17 16:10 Blood Blood Culture - Preliminary NO GROWTH AFTER 48 HOURS Resulted 07/31/17 18:00 Stool Clostridium difficile Toxin Assay - Final Complete Laboratory Tests 08/03/17 05:20: White Blood Count 9.4, Red Blood Count 2.86L, Hemoglobin 8.6L, Hematocrit 25.5L , Mean Corpuscular Volume 89, Mean Corpuscular Hemoglobin 30.1, Mean Corpuscular Hemoglobin Concent 33.8, Red Cell Distribution Width 14.4, Platelet Count 298, Mean Platelet Volume 4.7L, Neutrophils (%) (Auto) 77.0H, Lymphocytes (%) (Auto) 15.8L, Monocytes (%) (Auto) 4.9, Eosinophils (%) (Auto) 1.4, Basophils (%) (Auto) 0.9, Sodium Level 135L, Potassium Level 4.0, Chloride Level 96L, Carbon Dioxide Level 33H, Anion Gap 6, Blood Urea Nitrogen 5L, Creatinine 0.6, Estimat Glomerular Filtration Rate > 60, Glucose Level 98, Calcium Level 8.1L Current Medications Medications (Trade) Dose Ordered Sig/Kayy Route PRN Reason Start Time Stop Time Status Last Admin Dose Admin Acetaminophen (Tylenol) 650 mg Q6H PRN ORAL Mild Pain/Temp > 100.5 07/14/17 19:00 08/13/17 18:59 07/21/17 12:18 Acetaminophen/ Hydrocodone Bitart ([place] 5/325) 1 tab Q4H PRN ORAL Moderate Pain (Pain Scale 4-6) 07/30/17 09:00 08/06/17 08:59 08/03/17 08:41 Calcium Carbonate (Tums) 1,000 mg Q4H PRN ORAL HEARTBURN/INDIGESTION 07/20/17 18:00 08/19/17 17:59 08/01/17 13:32 Dextrose (Dextrose 50%) STAT PRN IV Hypoglycemia 07/11/17 20:30 08/10/17 20:29 Diphenhydramine HCl (Benadryl) 25 mg Q6H PRN IVP Itching 07/25/17 17:00 08/24/17 16:59 08/02/17 15:49 Finasteride (Proscar) 5 mg DAILY ORAL 07/13/17 09:00 08/12/17 08:59 08/03/17 08:40 Fluconazole (Diflucan) 200 mg Q24H ORAL 08/01/17 16:00 08/08/17 15:59 08/02/17 15:49 Heparin Sodium (Porcine) (Heparin 5000 units/ml) 5,000 units EVERY 12 HOURS SUBQ 08/01/17 21:00 08/22/17 21:00 08/03/17 08:45 Hydromorphone HCl (Dilaudid) 2 mg Q4H PRN IVP PAIN 4-10 07/29/17 09:01 08/05/17 09:00 08/03/17 05:01 Lansoprazole (Prevacid) 30 mg DAILY ORAL 07/12/17 09:00 08/11/17 08:59 08/03/17 08:40 Linezolid (Zyvox) 600 mg EVERY 12 HOURS ORAL 07/23/17 21:00 08/03/17 20:59 08/03/17 08:40 Meropenem 1 gm/ Dextrose 110 ml @ 220 mls/hr Q8HR@0300,1100,1900 IVPB 07/31/17 19:00 08/05/17 18:59 08/03/17 02:25 Nitroglycerin (Ntg) 0.4 mg Q5MIN X 3 DOSES PRN SL Prn Chest Pain 07/11/17 20:32 08/09/17 20:31 Ondansetron HCl (Zofran) 4 mg Q6H PRN IVP Nausea & Vomiting 07/11/17 20:32 08/10/17 20:31 08/03/17 05:00 Potassium Chloride (K-Dur) 40 meq DAILY ORAL 07/20/17 09:00 08/19/17 08:59 08/03/17 08:40 Risperidone (RisperDAL) 4 mg BEDTIME ORAL 07/23/17 21:00 08/22/17 20:59 08/02/17 20:40 Temazepam (Restoril) 15 mg HSPRN PRN ORAL Insomnia 08/01/17 21:00 08/08/17 20:59 Gabbi Williamson NP ([place]) Aug 03, 2017 10:36
--- NOTE | 2017-08-03 11:38 | General Progress Note ---
Assessment/Plan Problem List: (1) COPD (chronic obstructive pulmonary disease) ICD Codes: J44.9 - Chronic obstructive pulmonary disease, unspecified SNOMED: 12655840 (2) Constipation ICD Codes: K59.00 - Constipation, unspecified SNOMED: 67290135 (3) Colon cancer ICD Codes: C18.9 - Malignant neoplasm of colon, unspecified SNOMED: 606426617 (4) Opiate dependence ICD Codes: F11.20 - Opioid dependence, uncomplicated SNOMED: 15995124 Qualifiers: Qualified Codes: F11.20 - Opioid dependence, uncomplicated (5) Amphetamine abuse ICD Codes: F15.10 - Other stimulant abuse, uncomplicated SNOMED: 98033973 Assessment/Plan diet order per surg pain control fu labs Subjective ROS Limited/Unobtainable: Yes Allergies: Coded Allergies: No Known Allergies (Unverified , 01/20/17) Subjective no event sob Objective Last 24 Hour Vital Signs Date Time Temp Pulse Resp B/P (MAP) Pulse Ox O2 Delivery O2 Flow Rate FiO2 08/03/17 09:40 97.5 08/03/17 08:51 97.5 89 16 102/70 96 Room Air 97.5 08/03/17 08:41 97.5 08/03/17 05:31 97.5 08/03/17 05:01 97.5 08/03/17 04:24 97.5 105 18 102/66 94 97.5 08/02/17 23:59 98.2 108 18 116/74 92 98.2 08/02/17 20:24 96 Nasal Cannula 2.0 28 08/02/17 20:24 Nasal Cannula 2.0 28 08/02/17 20:00 97.5 116 19 111/72 90 97.5 08/02/17 18:05 97.7 08/02/17 16:00 97.7 98 19 99/66 100 97.7 08/02/17 15:50 98.2 08/02/17 12:00 98.2 85 19 106/68 96 98.2 Intake and Output 08/02/17 08/03/17 19:00 07:00 Intake Total 120 ml 440 ml Balance 120 ml 440 ml Intake Oral 120 ml 240 ml IV Total 200 ml # Voids 2 Laboratory Tests 08/03/17 05:20: White Blood Count 9.4, Red Blood Count 2.86L, Hemoglobin 8.6L, Hematocrit 25.5L , Mean Corpuscular Volume 89, Mean Corpuscular Hemoglobin 30.1, Mean Corpuscular Hemoglobin Concent 33.8, Red Cell Distribution Width 14.4, Platelet Count 298, Mean Platelet Volume 4.7L, Neutrophils (%) (Auto) 77.0H, Lymphocytes (%) (Auto) 15.8L, Monocytes (%) (Auto) 4.9, Eosinophils (%) (Auto) 1.4, Basophils (%) (Auto) 0.9, Sodium Level 135L, Potassium Level 4.0, Chloride Level 96L, Carbon Dioxide Level 33H, Anion Gap 6, Blood Urea Nitrogen 5L, Creatinine 0.6, Estimat Glomerular Filtration Rate > 60, Glucose Level 98, Calcium Level 8.1L Height (Feet): 5 Height (Inches): 9.00 Weight (Pounds): 137 General Appearance: no apparent distress EENT: normal ENT inspection Neck: supple Cardiovascular: normal rate Respiratory/Chest: decreased breath sounds Abdomen: soft Extremities: non-tender APOLONIA ANTONY Aug 03, 2017 11:38
--- NOTE | 2017-08-03 11:47 | Nephrology Progress Note ---
Assessment/Plan Problem List: (1) ARF (acute renal failure) (2) UTI (urinary tract infection) (3) Psychiatric disorder (4) Acute abdomen Assessment Status: WBCs wnl had multi abdominal drains acute renal failure- extended left colectomy due to perf transverse colostomy creation Plan Plan: per charles, 07/20/17 Mag and K supplement as needed DC horan DC IV PT advance diet Post op ( OP 07/08/17) Horan- 2D echo normal Ej Fx Albumin bollous monitor renal parameters K and Phos and Mag supplement as needed Subjective ROS Limited/Unobtainable: No Objective Objective Last 24 Hour Vital Signs Date Time Temp Pulse Resp B/P (MAP) Pulse Ox O2 Delivery O2 Flow Rate FiO2 08/03/17 09:40 97.5 08/03/17 08:51 97.5 89 16 102/70 96 Room Air 97.5 08/03/17 08:41 97.5 08/03/17 05:31 97.5 08/03/17 05:01 97.5 08/03/17 04:24 97.5 105 18 102/66 94 97.5 08/02/17 23:59 98.2 108 18 116/74 92 98.2 08/02/17 20:24 96 Nasal Cannula 2.0 28 08/02/17 20:24 Nasal Cannula 2.0 28 08/02/17 20:00 97.5 116 19 111/72 90 97.5 08/02/17 18:05 97.7 08/02/17 16:00 97.7 98 19 99/66 100 97.7 08/02/17 15:50 98.2 08/02/17 12:00 98.2 85 19 106/68 96 98.2 Intake and Output 08/02/17 08/03/17 19:00 07:00 Intake Total 120 ml 440 ml Balance 120 ml 440 ml Intake Oral 120 ml 240 ml IV Total 200 ml # Voids 2 Laboratory Tests 08/03/17 05:20: White Blood Count 9.4, Red Blood Count 2.86L, Hemoglobin 8.6L, Hematocrit 25.5L , Mean Corpuscular Volume 89, Mean Corpuscular Hemoglobin 30.1, Mean Corpuscular Hemoglobin Concent 33.8, Red Cell Distribution Width 14.4, Platelet Count 298, Mean Platelet Volume 4.7L, Neutrophils (%) (Auto) 77.0H, Lymphocytes (%) (Auto) 15.8L, Monocytes (%) (Auto) 4.9, Eosinophils (%) (Auto) 1.4, Basophils (%) (Auto) 0.9, Sodium Level 135L, Potassium Level 4.0, Chloride Level 96L, Carbon Dioxide Level 33H, Anion Gap 6, Blood Urea Nitrogen 5L, Creatinine 0.6, Estimat Glomerular Filtration Rate > 60, Glucose Level 98, Calcium Level 8.1L Height (Feet): 5 Height (Inches): 9.00 Weight (Pounds): 137 General Appearance: no apparent distress Respiratory/Chest: decreased breath sounds Abdomen: soft, distended Objective no other change NOEMY MARK Aug 03, 2017 11:47
[2017-08-03 12:00] VITALS: BP_SYST 104; BP_SYST 131; BP_DIAS 66; BP_DIAS 78
--- NOTE | 2017-08-03 15:08 | Infectious Diseases Prog Note ---
Assessment/Plan Assessment/Plan ASSESSMENT: The patient is a 46-year-old male with; Bowel perf w/ development of 2 Abscess (subphrenic and pelvic) Cx: E coli( ESBL) and ENTEROCOCCUS AVIUM (turcios S) and Bact Fragilis - s/p I+D x2- now almost complete resolution of abscess -CT abd/p w/ 08/02: Mostly resolved left upper quadrant and right upper quadrant fluid collections, post surgical evacuation. Minimal residual fluid as described. Appearance of the residual fluid is nonspecific as regards whether or not infected. Other postsurgical changes, as described, including the minimal residual pneumoperitoneum, surgical drain removal. 2 new fluid collections within the liver, could represent small hepatic abscesses versus noninfected acquired fluid collections, possibly related to surgical trauma. Dilated proximal small bowel, gradually narrowing to normal caliber more distally. No evidence of obstruction, as ingested contrast is seen to traverse the entirety of the GI tract. Small splenic hilar, gastric varices. This, in combination with mesenteric congestion, could indicate portal hypertension. However, no morphologic changes of the liver to suggest cirrhosis are evident. Moderate right pleural effusion, slightly decreased in size from the previous study. Trace left pleural effusion, significantly decreased in size from the previous study. Gas within the bladder. Probably related to recent instrumentation. If there is no history of recent Dickens catheterization, however , the possibility of emphysematous cystitis should be considered -s/p exploratory laparotomy, abdominal washout, evacuation of abscess, drain placement and abdominal closure 07/20; cx not received in the lab -s/p CT guided drainage APOLLO fluid collection 07/19: Aspiration and drainage of left upper quadrant collection, yielding 150 mL of carin pus. Note that the collection could only be partially evacuated, however, despite confirmation of apparent adequate position of the drain.This may indicate high viscosity of the contents; cx E. fecalis (turcios S), PREVOTELLA LOESCHEII (Aumgentin, Clinda R; Metronidazole S) s/p ex lap with left colectomy and transverse colostomy for perforated left colon, evacuation of intrabd abscess, abd washout w/ drain placement 07/09 -CT abd/p w/ 07/18: Postsurgical changes, as described, status post transverse colectomy, Jazz procedure, and placement of multiple surgical drains. Left upper quadrant intraperitoneal fluid collection, despite the presence of a surgical drain in the center of the collection. The presence of gas bubbles within rather than floating nondependently in the collection indicate that this fluid may be viscous. 2 other significant intraperitoneal collections,which do not appear to communicate, possibly loculated. Given presence of somewhat thick enhancing rim surrounding all of these, infected collections are certainly possible ( left paracolic gutter 5.8 cmx 4.3 cm x 8.3cm and R paracolic gutter, medial and inferior to tip R hepatic lobe 8cm x 6.4cm x8cm). Other than the gas within the left upper quadrant collection, previously demonstrated pneumoperitoneum has largely resolved. Left upper quadrant thick walled small bowel loops. Possibly reactive due to adjacent inflammation, enteritis is also possible. No evidence of bowel obstruction. Gallbladder wall edema versus pericholecystic fluid. -OR findings: The omentum was significantly thickened and adhesed to the small bowel and into the left lower quadrant. There was significant inflammatory process throughout the abdomen including a thickening of almost the entire peritoneal lining. The proximal portion of the jejunum was significantly thickened and had a rind of inflammatory infectious tissue on it. left transverse and descending colon, there was significant amount of thickening and significant disease process with some areas of mild ischemia noted and in the descending colon around the descending and sigmoid junction, there was a gross perforation with grossspillage of bowel contents noted in the area. there was a fluid collection/pelvic abscess, which was evacuated. There was a fluid collection in the right upper quadrant around the liver, which was evacuated and a large left upper quadrant subphrenic abscess with significant tissue rind and thickening around the stomach, spleen, peritoneum, and diaphragm in that location. CT : Evidence of perforation of hollow viscus with extensive amount of free air in the upper abdomen and some free fluid is well. Fever/Leukocytosis, fever resolved; leukocytosis recurrent, now resoled -07/31 Cdiff neg -07/15 Bcx Neg ?PNA, resolving -CXR 07/31: Improved left basilar consolidation, since 07/15/2017. Some residual atelectasis and possibly minimal residual consolidation. Decreased but persistent pleural fluid on the left. Resolved right mid and lower lung consolidation. Some residual perihilar atelectasis. New or increased small right pleural effusion. Left upper quadrant surgical drain Elevated ALP , improved -Abd US: Negative for gallstones. There is borderline gallbladder wall thickening, however. Most likely, this is reactive secondary to surrounding inflammation related to recent bowel perforation and surgery for such. However, the possibility of acalculous acute cholecystitis should be considered, and consideration for nuclear medicine hepatobiliary scanning if there is high clinical suspicion history of diarrhea, SP RAMSEY: Improved HTN COPD/asthma. Smoker. History of chronic constipation. Osteoarthritis. ? CAD/FL, hx PLAN: -Continue IV Meropenem abx d#24, Fluconazole #14, Linezolid #11 until 08/10/17; ok to discharge on this regimen -weekly CBC/CMP --08/02 SP IV ampicillin #17 --07/21 Zosyn #4 --07/18 SP Ertapenem, PO Amoxicillin #3 --07/16 SP Cefepime #2 --07/12 SP Zosyn d# 6 --SP Rocephin d# 5 -f/u repeat Bcx x2 -Requested micro lab to add fungal, nocardia and AFB cx to latest cultures ( ordered was auto-canceled and I was not notified; cultures were not done) -surgery following -wound care -Trend WBC monitor chest x-ray. Discussed with RN, and Dr Michelle Subjective Allergies: Coded Allergies: No Known Allergies (Unverified , 01/20/17) Subjective afebrile leukocytosis resolved discharge planning Objective Vital Signs Last 24 Hour Vital Signs Date Time Temp Pulse Resp B/P (MAP) Pulse Ox O2 Delivery O2 Flow Rate FiO2 08/03/17 12:00 97.6 76 16 104/66 95 Room Air 97.6 08/03/17 11:35 97.5 08/03/17 09:40 97.5 08/03/17 08:51 97.5 89 16 102/70 96 Room Air 97.5 08/03/17 08:41 97.5 08/03/17 05:01 97.5 08/03/17 04:24 97.5 105 18 102/66 94 97.5 08/02/17 23:59 98.2 108 18 116/74 92 98.2 08/02/17 20:24 96 Nasal Cannula 2.0 28 08/02/17 20:24 Nasal Cannula 2.0 28 08/02/17 20:00 97.5 116 19 111/72 90 97.5 08/02/17 18:05 97.7 3/29/18 16:00 97.7 98 19 99/66 100 97.7 08/02/17 15:50 98.2 Height (Feet): 5 Height (Inches): 9.00 Weight (Pounds): 137 Objective General Appearance: WD/WN, no apparent distress, alert, thin Cardiovascular: normal rate Respiratory/Chest: normal breath sounds, no respiratory distress Abdominal Exam: normal bowel sounds, non tender, soft, other - colostomy Extremities: non-tender Microbiology Date/Time Source Procedure Growth Status 07/31/17 16:40 Blood Blood Culture - Preliminary NO GROWTH AFTER 48 HOURS Resulted 07/31/17 16:10 Blood Blood Culture - Preliminary NO GROWTH AFTER 48 HOURS Resulted 07/31/17 18:00 Stool Clostridium difficile Toxin Assay - Final Complete Laboratory Tests Test 08/03/17 05:20 White Blood Count 9.4 K/UL (4.8-10.8) Red Blood Count 2.86 M/UL (4.70-6.10) L Hemoglobin 8.6 G/DL (14.2-18.0) L Hematocrit 25.5 % (42.0-52.0) L Mean Corpuscular Volume 89 FL (80-99) Mean Corpuscular Hemoglobin 30.1 PG (27.0-31.0) Mean Corpuscular Hemoglobin Concent 33.8 G/DL (32.0-36.0) Red Cell Distribution Width 14.4 % (11.6-14.8) Platelet Count 298 K/UL (150-450) Mean Platelet Volume 4.7 FL (6.5-10.1) L Neutrophils (%) (Auto) 77.0 % (45.0-75.0) H Lymphocytes (%) (Auto) 15.8 % (20.0-45.0) L Monocytes (%) (Auto) 4.9 % (1.0-10.0) Eosinophils (%) (Auto) 1.4 % (0.0-3.0) Basophils (%) (Auto) 0.9 % (0.0-2.0) Sodium Level 135 MMOL/L (136-145) L Potassium Level 4.0 MMOL/L (3.5-5.1) Chloride Level 96 MMOL/L (98-107) L Carbon Dioxide Level 33 MMOL/L (21-32) H Anion Gap 6 mmol/L (5-15) Blood Urea Nitrogen 5 mg/dL (7-18) L Creatinine 0.6 MG/DL (0.55-1.30) Estimat Glomerular Filtration Rate > 60 mL/min (>60) Glucose Level 98 MG/DL (74-106) Calcium Level 8.1 MG/DL (8.5-10.1) L Current Medications Medications (Trade) Dose Ordered Sig/Kayy Route PRN Reason Start Time Stop Time Status Last Admin Dose Admin Acetaminophen (Tylenol) 650 mg Q6H PRN ORAL Mild Pain/Temp > 100.5 07/14/17 19:00 08/13/17 18:59 07/21/17 12:18 Acetaminophen/ Hydrocodone Bitart ([place] 5/325) 1 tab Q4H PRN ORAL Moderate Pain (Pain Scale 4-6) 07/30/17 09:00 08/06/17 08:59 08/03/17 08:41 Calcium Carbonate (Tums) 1,000 mg Q4H PRN ORAL HEARTBURN/INDIGESTION 07/20/17 18:00 08/19/17 17:59 08/01/17 13:32 Dextrose (Dextrose 50%) STAT PRN IV Hypoglycemia 07/11/17 20:30 08/10/17 20:29 Diphenhydramine HCl (Benadryl) 25 mg Q6H PRN IVP Itching 07/25/17 17:00 08/24/17 16:59 08/02/17 15:49 Finasteride (Proscar) 5 mg DAILY ORAL 07/13/17 09:00 08/12/17 08:59 08/03/17 08:40 Fluconazole (Diflucan) 200 mg Q24H ORAL 08/01/17 16:00 08/08/17 15:59 08/02/17 15:49 Heparin Sodium (Porcine) (Heparin 5000 units/ml) 5,000 units EVERY 12 HOURS SUBQ 08/01/17 21:00 08/22/17 21:00 08/03/17 08:45 Hydromorphone HCl (Dilaudid) 2 mg Q4H PRN IVP PAIN 4-10 07/29/17 09:01 08/05/17 09:00 08/03/17 11:05 Lansoprazole (Prevacid) 30 mg DAILY ORAL 07/12/17 09:00 08/11/17 08:59 08/03/17 08:40 Linezolid (Zyvox) 600 mg EVERY 12 HOURS ORAL 07/23/17 21:00 08/03/17 20:59 08/03/17 08:40 Meropenem 1 gm/ Dextrose 110 ml @ 220 mls/hr Q8HR@0300,1100,1900 IVPB 07/31/17 19:00 08/05/17 18:59 08/03/17 11:04 Nitroglycerin (Ntg) 0.4 mg Q5MIN X 3 DOSES PRN SL Prn Chest Pain 07/11/17 20:32 08/09/17 20:31 Ondansetron HCl (Zofran) 4 mg Q6H PRN IVP Nausea & Vomiting 07/11/17 20:32 08/10/17 20:31 08/03/17 12:29 Potassium Chloride (K-Dur) 40 meq DAILY ORAL 07/20/17 09:00 08/19/17 08:59 08/03/17 08:40 Risperidone (RisperDAL) 4 mg BEDTIME ORAL 07/23/17 21:00 08/22/17 20:59 08/02/17 20:40 Temazepam (Restoril) 15 mg HSPRN PRN ORAL Insomnia 08/01/17 21:00 08/08/17 20:59 Chhaya Menendez M.D. Aug 03, 2017 15:08
--- NOTE | 2017-08-03 15:19 | General Progress Note ---
Assessment/Plan Assessment/Plan Schizophrenia CPT Encephalopathy PLAN: - increase the risperidone to 4 mg at bedtime. Subjective Date patient seen: Aug 03, 2017 Allergies: Coded Allergies: No Known Allergies (Unverified , 01/20/17) Subjective the pt is calmer more organized. meds seeking Objective Last 24 Hour Vital Signs Date Time Temp Pulse Resp B/P (MAP) Pulse Ox O2 Delivery O2 Flow Rate FiO2 08/03/17 12:00 97.6 76 16 104/66 95 Room Air 97.6 08/03/17 11:35 97.5 08/03/17 09:40 97.5 08/03/17 08:51 97.5 89 16 102/70 96 Room Air 97.5 08/03/17 08:41 97.5 08/03/17 05:01 97.5 08/03/17 04:24 97.5 105 18 102/66 94 97.5 08/02/17 23:59 98.2 108 18 116/74 92 98.2 08/02/17 20:24 96 Nasal Cannula 2.0 28 08/02/17 20:24 Nasal Cannula 2.0 28 08/02/17 20:00 97.5 116 19 111/72 90 97.5 08/02/17 18:05 97.7 08/02/17 16:00 97.7 98 19 99/66 100 97.7 08/02/17 15:50 98.2 Intake and Output 08/02/17 08/03/17 19:00 07:00 Intake Total 120 ml 440 ml Balance 120 ml 440 ml Intake Oral 120 ml 240 ml IV Total 200 ml # Voids 2 Laboratory Tests 08/03/17 05:20: White Blood Count 9.4, Red Blood Count 2.86L, Hemoglobin 8.6L, Hematocrit 25.5L , Mean Corpuscular Volume 89, Mean Corpuscular Hemoglobin 30.1, Mean Corpuscular Hemoglobin Concent 33.8, Red Cell Distribution Width 14.4, Platelet Count 298, Mean Platelet Volume 4.7L, Neutrophils (%) (Auto) 77.0H, Lymphocytes (%) (Auto) 15.8L, Monocytes (%) (Auto) 4.9, Eosinophils (%) (Auto) 1.4, Basophils (%) (Auto) 0.9, Sodium Level 135L, Potassium Level 4.0, Chloride Level 96L, Carbon Dioxide Level 33H, Anion Gap 6, Blood Urea Nitrogen 5L, Creatinine 0.6, Estimat Glomerular Filtration Rate > 60, Glucose Level 98, Calcium Level 8.1L Height (Feet): 5 Height (Inches): 9.00 Weight (Pounds): 137 Idalia Montanez M.D. Aug 03, 2017 15:19
--- NOTE | 2017-08-03 15:48 | Diagnostic Imaging Report ---
Indication: Shortness of breath Technique: XRAY Chest 1v Comparison: 07/31/2017 Findings: Heart size and mediastinal contours are stable. There is persistent bilateral effusions and bibasilar atelectasis/consolidation. Linear atelectasis/scarring in the left lung is also unchanged. There is no pneumothorax. Osseous structures are stable. Impression: No significant interval change compared to the prior exam.
[2017-08-03] MEDS: Fluconazole 100mg tab ORAL SCH (15:54)
[2017-08-03 16:00] VITALS: BP 116/66
[2017-08-03 20:00] VITALS: BP 111/73
[2017-08-04] VITALS: BP 107/61
[2017-08-04] MEDS: Meropenem 1 GM in D5W 110 ML IVPB SCH ×3 (02:41→18:13)
--- NOTE | 2017-08-04 07:58 | General Progress Note ---
Assessment/Plan Problem List: (1) COPD (chronic obstructive pulmonary disease) ICD Codes: J44.9 - Chronic obstructive pulmonary disease, unspecified SNOMED: 68236540 (2) Constipation ICD Codes: K59.00 - Constipation, unspecified SNOMED: 06933377 (3) Colon cancer ICD Codes: C18.9 - Malignant neoplasm of colon, unspecified SNOMED: 318491078 (4) Opiate dependence ICD Codes: F11.20 - Opioid dependence, uncomplicated SNOMED: 97186004 Qualifiers: Qualified Codes: F11.20 - Opioid dependence, uncomplicated (5) Amphetamine abuse ICD Codes: F15.10 - Other stimulant abuse, uncomplicated SNOMED: 54716858 Assessment/Plan on reg diet pain control fu labs Subjective ROS Limited/Unobtainable: Yes Allergies: Coded Allergies: No Known Allergies (Unverified , 01/20/17) Subjective no event sob Objective Last 24 Hour Vital Signs Date Time Temp Pulse Resp B/P (MAP) Pulse Ox O2 Delivery O2 Flow Rate FiO2 08/04/17 06:58 97.7 08/04/17 00:00 97.7 102 19 107/61 90 Room Air 97.7 08/03/17 23:42 98.2 08/03/17 23:12 98.2 08/03/17 21:28 98.2 08/03/17 20:29 98.2 08/03/17 20:00 97.7 103 20 111/73 91 Room Air 97.7 08/03/17 19:09 Nasal Cannula 2.0 28 08/03/17 19:09 97 Nasal Cannula 2.0 28 08/03/17 16:00 98.2 106 18 116/66 96 98.2 08/03/17 15:55 97.6 08/03/17 12:00 97.6 76 16 104/66 95 Room Air 97.6 08/03/17 08:51 97.5 89 16 102/70 96 Room Air 97.5 08/03/17 08:41 97.5 Intake and Output 08/03/17 08/04/17 19:00 07:00 Intake Total 1100 ml 580 ml Output Total 601 ml Balance 499 ml 580 ml Intake Oral 730 ml 360 ml IV Total 370 ml 220 ml Output Urine Total 1 ml Stool Total 600 ml Height (Feet): 5 Height (Inches): 9.00 Weight (Pounds): 134 General Appearance: no apparent distress EENT: normal ENT inspection Neck: supple Cardiovascular: normal rate Respiratory/Chest: decreased breath sounds Abdomen: normal bowel sounds, non tender, soft Extremities: non-tender APOLONIA ANTONY Aug 04, 2017 07:58
[2017-08-04 08:00] VITALS: BP 112/68
--- NOTE | 2017-08-04 08:09 | Pulmonology Progress Note ---
Assessment/Plan Assessment/Plan ASSESSMENT perforation of viscus pneumoperitoneum pleuritic chest pain ( likely due to perforated viscus) -perforated left colon with prolonged inflammatory reaction, gross spillage, and bowel ischemia. -Intra-abdominal abscess. s/p 07/08 Exploratory laparotomy, extended left colectomy, transverse colostomy creation, evacuation of intra-abdominal abscess, abdominal washout with drain placement. s/p 07/19 aspiration and drainage of intraperitoneal fluid collection by IR- 150cc Large complex intra-abdominal abscess Midline wound dehiscence. s/p 07/20 Exploratory laparotomy with evacuation of intra-abdominal abscess with debridement of necrotic infected tissues. abdominal washout and drain placement ARF -resolved hyperkalemia-resolved rhabdo-resolved acute on chronic constipation hx of recent colonoscopy at [facility] schizophrenia, paranoid type HTN COPD Smoker Amphetamine abuse PLAN OF CARE [facility] floor s/p IVF diet, advance as tolerated abx ID follows , last abd fluid cx + Enterococci, Prevotella; prior - E coli ESBL, Enterococci, bacteroides , blood cx negative stool C dif negative s/p surgery , then drainage by IR and then reexploration due to large complicated IA abscess s/p 2 drain placements, now removed colostomy functional with good output, colostomy care leuk- resolved CT A/P stable CXR 07/31 - Improved left basilar consolidation, since 07/15/2017. Some residual atelectasis and possibly minimal residual consolidation Decreased but persistent pleural fluid on the left Resolved right mid and lower lung consolidation. 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- initially after surgery on IV Dilaudid prn, and [place] prn for breakthrough pain ; pain controlled IS while in the bed and encourage to use, O2 HHN prn OOB as tolerated with PT/OT, encourage ambulation- unwilling to ambulate wound care DVT GI prophylaxis GI follows ARF resolved, monitor renal parameters, lytes, correct as needed, avoid nephrotoxic nephro follows senior vice president & general counsel on abstinence from street drugs senior vice president & general counsel on abstinence from smoking declined nicotine patch psych follows psych meds as per psych recs initially: troponin x 2 negative, no acute ischemic changes on ECF/tele , thus no evidence of acute GA cardio eval appreciated O2 HHN prn Venous Duplex BLE negative stat CTA chest done 07/08 with evidence perforation of hollow viscus with extensive amount of free air in the upper abdomen and some free fluid is well.; no evidence of PE inial surgery 07/09 ECHO with pEF surgeon cleared for dc ID cleared for dc on IV abx dc to SNF today for IV abx , pending disposition case discussed and evaluated by supervising physician Subjective Allergies: Coded Allergies: No Known Allergies (Unverified , 01/20/17) Subjective leucocytosis resolved, , afebrile drains dc pain controlled CT A/P done 08/02 stable awaiting for disposition Objective Last 24 Hour Vital Signs Date Time Temp Pulse Resp B/P (MAP) Pulse Ox O2 Delivery O2 Flow Rate FiO2 08/04/17 06:58 97.7 08/04/17 00:00 97.7 102 19 107/61 90 Room Air 97.7 08/03/17 23:42 98.2 08/03/17 23:12 98.2 08/03/17 21:28 98.2 08/03/17 20:29 98.2 08/03/17 20:00 97.7 103 20 111/73 91 Room Air 97.7 08/03/17 19:09 Nasal Cannula 2.0 28 08/03/17 19:09 97 Nasal Cannula 2.0 28 08/03/17 16:00 98.2 106 18 116/66 96 98.2 08/03/17 15:55 97.6 08/03/17 12:00 97.6 76 16 104/66 95 Room Air 97.6 08/03/17 08:51 97.5 89 16 102/70 96 Room Air 97.5 08/03/17 08:41 97.5 Intake and Output 08/03/17 08/04/17 19:00 07:00 Intake Total 1100 ml 580 ml Output Total 601 ml Balance 499 ml 580 ml Intake Oral 730 ml 360 ml IV Total 370 ml 220 ml Output Urine Total 1 ml Stool Total 600 ml Objective General Appearance: no acute distress, A/A/O x 3 male HEENT: normocephalic, atraumatic, anicteric Respiratory/Chest: lungs clear, no respiratory distress Cardiovascular: normal rate, no JVD Abdomen: normal bowel sounds, Colostomy with stool, dressing C/D/I Extremities: no edema, pedal pulses normal Neurologic/Psychiatric: alert, oriented x 3, responsive Musculoskeletal: normal muscle bulk Current Medications Medications (Trade) Dose Ordered Sig/Kayy Route PRN Reason Start Time Stop Time Status Last Admin Dose Admin Acetaminophen (Tylenol) 650 mg Q6H PRN ORAL Mild Pain/Temp > 100.5 07/14/17 19:00 08/13/17 18:59 07/21/17 12:18 Acetaminophen/ Hydrocodone Bitart ([place] 5/325) 1 tab Q4H PRN ORAL Moderate Pain (Pain Scale 4-6) 07/30/17 09:00 08/06/17 08:59 08/03/17 20:29 Calcium Carbonate (Tums) 1,000 mg Q4H PRN ORAL HEARTBURN/INDIGESTION 07/20/17 18:00 08/19/17 17:59 08/01/17 13:32 Dextrose (Dextrose 50%) STAT PRN IV Hypoglycemia 07/11/17 20:30 08/10/17 20:29 Diphenhydramine HCl (Benadryl) 25 mg Q6H PRN IVP Itching 07/25/17 17:00 08/24/17 16:59 08/02/17 15:49 Finasteride (Proscar) 5 mg DAILY ORAL 07/13/17 09:00 08/12/17 08:59 08/03/17 08:40 Fluconazole (Diflucan) 200 mg Q24H ORAL 08/01/17 16:00 08/08/17 15:59 08/03/17 15:54 Heparin Sodium (Porcine) (Heparin 5000 units/ml) 5,000 units EVERY 12 HOURS SUBQ 08/01/17 21:00 08/22/17 21:00 08/03/17 20:31 Hydromorphone HCl (Dilaudid) 2 mg Q4H PRN IVP PAIN 4-10 07/29/17 09:01 08/05/17 09:00 08/04/17 06:58 Lansoprazole (Prevacid) 30 mg DAILY ORAL 07/12/17 09:00 08/11/17 08:59 08/03/17 08:40 Meropenem 1 gm/ Dextrose 110 ml @ 220 mls/hr Q8HR@0300,1100,1900 IVPB 07/31/17 19:00 08/05/17 18:59 08/04/17 02:41 Nitroglycerin (Ntg) 0.4 mg Q5MIN X 3 DOSES PRN SL Prn Chest Pain 07/11/17 20:32 08/09/17 20:31 Ondansetron HCl (Zofran) 4 mg Q6H PRN IVP Nausea & Vomiting 07/11/17 20:32 08/10/17 20:31 08/03/17 20:59 Potassium Chloride (K-Dur) 40 meq DAILY ORAL 07/20/17 09:00 08/19/17 08:59 08/03/17 08:40 Risperidone (RisperDAL) 4 mg BEDTIME ORAL 07/23/17 21:00 08/22/17 20:59 08/03/17 20:28 Temazepam (Restoril) 15 mg HSPRN PRN ORAL Insomnia 08/01/17 21:00 08/08/17 20:59 08/03/17 23:21 [facility] Aug 04, 2017 08:09
[2017-08-04] MEDS: Heparin 5000 units/ml inj SUBQ SCH ×2 (09:21→21:58)
[2017-08-04] MEDS: Norco 5mg/325mg tab ORAL PRN ×2 (09:42→15:29)
[2017-08-04] MEDS: DiphenhydrAMINE 50mg/ml Inj IVP PRN ×2 (10:52→18:13)
--- NOTE | 2017-08-04 10:58 | Nephrology Progress Note ---
Assessment/Plan Problem List: (1) ARF (acute renal failure) (2) UTI (urinary tract infection) (3) Psychiatric disorder (4) Acute abdomen Assessment Status: WBCs wnl had multi abdominal drains acute renal failure- extended left colectomy due to perf transverse colostomy creation Plan Plan: per charles, 07/20/17 Mag and K supplement as needed DC horan DC IV PT advance diet Post op ( OP 07/08/17) Horan- 2D echo normal Ej Fx Albumin bollous monitor renal parameters K and Phos and Mag supplement as needed Subjective ROS Limited/Unobtainable: No Constitutional: Reports: malaise Objective Objective Last 24 Hour Vital Signs Date Time Temp Pulse Resp B/P (MAP) Pulse Ox O2 Delivery O2 Flow Rate FiO2 08/04/17 08:10 105 08/04/17 08:00 98.2 115 20 112/68 95 98.2 08/04/17 06:58 97.7 08/04/17 00:00 97.7 102 19 107/61 90 Room Air 97.7 08/03/17 23:42 98.2 08/03/17 23:12 98.2 08/03/17 21:28 98.2 08/03/17 20:29 98.2 08/03/17 20:00 97.7 103 20 111/73 91 Room Air 97.7 08/03/17 19:09 Nasal Cannula 2.0 28 08/03/17 19:09 97 Nasal Cannula 2.0 28 08/03/17 16:00 98.2 106 18 116/66 96 98.2 08/03/17 15:55 97.6 08/03/17 12:00 97.6 76 16 104/66 95 Room Air 97.6 Intake and Output 08/03/17 08/04/17 19:00 07:00 Intake Total 1100 ml 580 ml Output Total 601 ml Balance 499 ml 580 ml Intake Oral 730 ml 360 ml IV Total 370 ml 220 ml Output Urine Total 1 ml Stool Total 600 ml Height (Feet): 5 Height (Inches): 9.00 Weight (Pounds): 134 General Appearance: no apparent distress Objective no other change NOEMY MARK Aug 04, 2017 10:58
[2017-08-04 12:00] VITALS: BP 104/76
[2017-08-04] MEDS: Fluconazole 100mg tab ORAL SCH (15:29)
[2017-08-04 16:00] VITALS: BP 111/81
--- NOTE | 2017-08-04 19:54 | Infectious Diseases Prog Note ---
Assessment/Plan Assessment/Plan ASSESSMENT: The patient is a 46-year-old male with; Bowel perf w/ development of 2 Abscess (subphrenic and pelvic) Cx: E coli( ESBL) and ENTEROCOCCUS AVIUM (turcios S) and Bact Fragilis - s/p I+D x2- now almost complete resolution of abscess -CT abd/p w/ 08/02: Mostly resolved left upper quadrant and right upper quadrant fluid collections, post surgical evacuation. Minimal residual fluid as described. Appearance of the residual fluid is nonspecific as regards whether or not infected. Other postsurgical changes, as described, including the minimal residual pneumoperitoneum, surgical drain removal. 2 new fluid collections within the liver, could represent small hepatic abscesses versus noninfected acquired fluid collections, possibly related to surgical trauma. Dilated proximal small bowel, gradually narrowing to normal caliber more distally. No evidence of obstruction, as ingested contrast is seen to traverse the entirety of the GI tract. Small splenic hilar, gastric varices. This, in combination with mesenteric congestion, could indicate portal hypertension. However, no morphologic changes of the liver to suggest cirrhosis are evident. Moderate right pleural effusion, slightly decreased in size from the previous study. Trace left pleural effusion, significantly decreased in size from the previous study. Gas within the bladder. Probably related to recent instrumentation. If there is no history of recent Dickens catheterization, however , the possibility of emphysematous cystitis should be considered -s/p exploratory laparotomy, abdominal washout, evacuation of abscess, drain placement and abdominal closure 07/20; cx not received in the lab -s/p CT guided drainage APOLLO fluid collection 07/19: Aspiration and drainage of left upper quadrant collection, yielding 150 mL of carin pus. Note that the collection could only be partially evacuated, however, despite confirmation of apparent adequate position of the drain.This may indicate high viscosity of the contents; cx E. fecalis (turcios S), PREVOTELLA LOESCHEII (Aumgentin, Clinda R; Metronidazole S) s/p ex lap with left colectomy and transverse colostomy for perforated left colon, evacuation of intrabd abscess, abd washout w/ drain placement 07/09 -CT abd/p w/ 07/18: Postsurgical changes, as described, status post transverse colectomy, Jazz procedure, and placement of multiple surgical drains. Left upper quadrant intraperitoneal fluid collection, despite the presence of a surgical drain in the center of the collection. The presence of gas bubbles within rather than floating nondependently in the collection indicate that this fluid may be viscous. 2 other significant intraperitoneal collections,which do not appear to communicate, possibly loculated. Given presence of somewhat thick enhancing rim surrounding all of these, infected collections are certainly possible ( left paracolic gutter 5.8 cmx 4.3 cm x 8.3cm and R paracolic gutter, medial and inferior to tip R hepatic lobe 8cm x 6.4cm x8cm). Other than the gas within the left upper quadrant collection, previously demonstrated pneumoperitoneum has largely resolved. Left upper quadrant thick walled small bowel loops. Possibly reactive due to adjacent inflammation, enteritis is also possible. No evidence of bowel obstruction. Gallbladder wall edema versus pericholecystic fluid. -OR findings: The omentum was significantly thickened and adhesed to the small bowel and into the left lower quadrant. There was significant inflammatory process throughout the abdomen including a thickening of almost the entire peritoneal lining. The proximal portion of the jejunum was significantly thickened and had a rind of inflammatory infectious tissue on it. left transverse and descending colon, there was significant amount of thickening and significant disease process with some areas of mild ischemia noted and in the descending colon around the descending and sigmoid junction, there was a gross perforation with grossspillage of bowel contents noted in the area. there was a fluid collection/pelvic abscess, which was evacuated. There was a fluid collection in the right upper quadrant around the liver, which was evacuated and a large left upper quadrant subphrenic abscess with significant tissue rind and thickening around the stomach, spleen, peritoneum, and diaphragm in that location. CT : Evidence of perforation of hollow viscus with extensive amount of free air in the upper abdomen and some free fluid is well. Fever/Leukocytosis, fever resolved; leukocytosis recurrent, now resoled -07/31 Cdiff neg -07/15 Bcx Neg ?PNA, resolving -CXR 07/31: Improved left basilar consolidation, since 07/15/2017. Some residual atelectasis and possibly minimal residual consolidation. Decreased but persistent pleural fluid on the left. Resolved right mid and lower lung consolidation. Some residual perihilar atelectasis. New or increased small right pleural effusion. Left upper quadrant surgical drain Elevated ALP , improved -Abd US: Negative for gallstones. There is borderline gallbladder wall thickening, however. Most likely, this is reactive secondary to surrounding inflammation related to recent bowel perforation and surgery for such. However, the possibility of acalculous acute cholecystitis should be considered, and consideration for nuclear medicine hepatobiliary scanning if there is high clinical suspicion history of diarrhea, SP RAMSEY: Improved HTN COPD/asthma. Smoker. History of chronic constipation. Osteoarthritis. ? CAD/TN, hx PLAN: -Continue IV Meropenem abx d#25, Fluconazole #15, Linezolid #12 until 08/10/17; ok to discharge on this regimen -weekly CBC/CMP --08/02 SP IV ampicillin #17 --07/21 Zosyn #4 --07/18 SP Ertapenem, PO Amoxicillin #3 --07/16 SP Cefepime #2 --07/12 SP Zosyn d# 6 --SP Rocephin d# 5 -f/u repeat Bcx x2 -Requested micro lab to add fungal, nocardia and AFB cx to latest cultures ( ordered was auto-canceled and I was not notified; cultures were not done) -surgery following -wound care -Trend WBC Subjective Allergies: Coded Allergies: No Known Allergies (Unverified , 01/20/17) Subjective leukocytosis post op Objective Vital Signs Last 24 Hour Vital Signs Date Time Temp Pulse Resp B/P (MAP) Pulse Ox O2 Delivery O2 Flow Rate FiO2 08/04/17 16:00 97.5 102 18 111/81 94 97.5 08/04/17 12:10 109 08/04/17 12:00 96.8 114 20 104/76 97 96.8 08/04/17 08:10 105 08/04/17 08:00 98.2 115 20 112/68 95 98.2 08/04/17 06:58 97.7 08/04/17 00:00 97.7 102 19 107/61 90 Room Air 97.7 08/03/17 23:42 98.2 08/03/17 23:12 98.2 08/03/17 21:28 98.2 08/03/17 20:29 98.2 08/03/17 20:00 97.7 103 20 111/73 91 Room Air 97.7 Height (Feet): 5 Height (Inches): 9.00 Weight (Pounds): 134 HEENT: atraumatic Respiratory/Chest: no respiratory distress Cardiovascular: regular rhythm Abdomen: no organomegaly Current Medications Medications (Trade) Dose Ordered Sig/Kayy Route PRN Reason Start Time Stop Time Status Last Admin Dose Admin Acetaminophen (Tylenol) 650 mg Q6H PRN ORAL Mild Pain/Temp > 100.5 07/14/17 19:00 08/13/17 18:59 07/21/17 12:18 Acetaminophen/ Hydrocodone Bitart ([place] 5/325) 1 tab Q4H PRN ORAL Breakthru Pain btwn Dilaudid d 08/04/17 09:00 08/11/17 08:59 08/04/17 15:29 Calcium Carbonate (Tums) 1,000 mg Q4H PRN ORAL HEARTBURN/INDIGESTION 07/20/17 18:00 08/19/17 17:59 08/01/17 13:32 Dextrose (Dextrose 50%) STAT PRN IV Hypoglycemia 07/11/17 20:30 08/10/17 20:29 Diphenhydramine HCl (Benadryl) 25 mg Q6H PRN IVP Itching 07/25/17 17:00 08/24/17 16:59 08/04/17 18:13 Finasteride (Proscar) 5 mg DAILY ORAL 07/13/17 09:00 08/12/17 08:59 08/04/17 09:20 Fluconazole (Diflucan) 200 mg Q24H ORAL 08/01/17 16:00 08/08/17 15:59 08/04/17 15:29 Heparin Sodium (Porcine) (Heparin 5000 units/ml) 5,000 units EVERY 12 HOURS SUBQ 08/01/17 21:00 08/22/17 21:00 08/04/17 09:21 Hydromorphone HCl (Dilaudid) 2 mg Q4H PRN IVP PAIN 4-10 08/04/17 09:01 08/11/17 09:00 08/04/17 17:31 Lansoprazole (Prevacid) 30 mg DAILY ORAL 07/12/17 09:00 08/11/17 08:59 08/04/17 09:20 Meropenem 1 gm/ Dextrose 110 ml @ 220 mls/hr Q8HR@0300,1100,1900 IVPB 07/31/17 19:00 08/05/17 18:59 08/04/17 18:13 Nitroglycerin (Ntg) 0.4 mg Q5MIN X 3 DOSES PRN SL Prn Chest Pain 07/11/17 20:32 08/09/17 20:31 Ondansetron HCl (Zofran) 4 mg Q6H PRN IVP Nausea & Vomiting 07/11/17 20:32 08/10/17 20:31 08/04/17 15:29 Potassium Chloride (K-Dur) 40 meq DAILY ORAL 07/20/17 09:00 08/19/17 08:59 08/04/17 09:20 Risperidone (RisperDAL) 4 mg BEDTIME ORAL 07/23/17 21:00 08/22/17 20:59 08/03/17 20:28 Temazepam (Restoril) 15 mg HSPRN PRN ORAL Insomnia 08/01/17 21:00 08/08/17 20:59 08/03/17 23:21 Rick Arvizu MD Aug 04, 2017 19:54
[2017-08-04 20:00] VITALS: BP 107/68
[2017-08-05] VITALS: BP 102/70
[2017-08-05] MEDS: DiphenhydrAMINE 50mg/ml Inj IVP PRN ×2 (02:40→12:28)
[2017-08-05] MEDS: Meropenem 1 GM in D5W 110 ML IVPB SCH ×3 (02:40→18:25)
[2017-08-05 04:00] VITALS: BP 97/61
[2017-08-05] MEDS: Norco 5mg/325mg tab ORAL PRN ×2 (06:12→16:10)
[2017-08-05 08:00] VITALS: BP 108/71
[2017-08-05] MEDS: Heparin 5000 units/ml inj SUBQ SCH ×2 (08:48→20:31)
--- NOTE | 2017-08-05 09:29 | Pulmonology Progress Note ---
Assessment/Plan Assessment/Plan ASSESSMENT perforation of viscus pneumoperitoneum pleuritic chest pain ( likely due to perforated viscus) -perforated left colon with prolonged inflammatory reaction, gross spillage, and bowel ischemia. -Intra-abdominal abscess. s/p 07/08 Exploratory laparotomy, extended left colectomy, transverse colostomy creation, evacuation of intra-abdominal abscess, abdominal washout with drain placement. s/p 07/19 aspiration and drainage of intraperitoneal fluid collection by IR- 150cc Large complex intra-abdominal abscess Midline wound dehiscence. s/p 07/20 Exploratory laparotomy with evacuation of intra-abdominal abscess with debridement of necrotic infected tissues. abdominal washout and drain placement ARF -resolved hyperkalemia-resolved rhabdo-resolved acute on chronic constipation hx of recent colonoscopy at [facility] schizophrenia, paranoid type HTN COPD Smoker Amphetamine abuse PLAN OF CARE [facility] floor s/p IVF diet, advance as tolerated abx ID follows , last abd fluid cx + Enterococci, Prevotella; prior - E coli ESBL, Enterococci, bacteroides , blood cx negative stool C dif negative s/p surgery , then drainage by IR and then reexploration due to large complicated IA abscess s/p 2 drain placements, now removed colostomy functional with good output, colostomy care leuk- resolved CT A/P stable CXR 07/31 - Improved left basilar consolidation, since 07/15/2017. Some residual atelectasis and possibly minimal residual consolidation Decreased but persistent pleural fluid on the left Resolved right mid and lower lung consolidation. 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- initially after surgery on IV Dilaudid prn, and [place] prn for breakthrough pain ; pain controlled IS while in the bed and encourage to use, O2 HHN prn OOB as tolerated with PT/OT, encourage ambulation- unwilling to ambulate wound care DVT GI prophylaxis GI follows ARF resolved, monitor renal parameters, lytes, correct as needed, avoid nephrotoxic nephro follows personnel counselor on abstinence from street drugs personnel counselor on abstinence from smoking declined nicotine patch psych follows psych meds as per psych recs initially: troponin x 2 negative, no acute ischemic changes on ECF/tele , thus no evidence of acute AR cardio eval appreciated O2 HHN prn Venous Duplex BLE negative stat CTA chest done 07/08 with evidence perforation of hollow viscus with extensive amount of free air in the upper abdomen and some free fluid is well.; no evidence of PE inial surgery 07/09 ECHO with pEF surgeon cleared for dc ID cleared for dc on IV abx dc to SNF today for IV abx , pending disposition case discussed and evaluated by supervising physician Subjective Allergies: Coded Allergies: No Known Allergies (Unverified , 01/20/17) Subjective leucocytosis resolved, , afebrile drains dc pain controlled CT A/P done 08/02 stable awaiting for disposition Objective Last 24 Hour Vital Signs Date Time Temp Pulse Resp B/P (MAP) Pulse Ox O2 Delivery O2 Flow Rate FiO2 08/05/17 08:00 98.8 118 19 108/71 96 98.8 08/05/17 07:35 96 Nasal Cannula 2.0 28 08/05/17 07:35 Nasal Cannula 2.0 28 08/05/17 04:00 97.7 115 20 97/61 95 97.7 08/05/17 00:00 97.5 116 20 102/70 93 97.5 08/04/17 20:00 98.1 102 20 107/68 96 98.1 08/04/17 16:00 97.5 102 18 111/81 94 97.5 08/04/17 12:10 109 08/04/17 12:00 96.8 114 20 104/76 97 96.8 Intake and Output 08/04/17 08/05/17 19:00 07:00 Intake Total 240 ml 110 ml Output Total 200 ml Balance 40 ml 110 ml Intake Oral 240 ml IV Total 110 ml Stool Total 200 ml # Voids 3 1 Objective General Appearance: no acute distress, A/A/O x 3 male HEENT: normocephalic, atraumatic, anicteric Respiratory/Chest: lungs clear, no respiratory distress Cardiovascular: normal rate, no JVD Abdomen: normal bowel sounds, Colostomy with stool, dressing C/D/I Extremities: no edema, pedal pulses normal Neurologic/Psychiatric: alert, oriented x 3, responsive Musculoskeletal: normal muscle bulk Current Medications Medications (Trade) Dose Ordered Sig/Kayy Route PRN Reason Start Time Stop Time Status Last Admin Dose Admin Acetaminophen (Tylenol) 650 mg Q6H PRN ORAL Mild Pain/Temp > 100.5 07/14/17 19:00 4/9/18 18:59 07/21/17 12:18 Acetaminophen/ Hydrocodone Bitart ([place] 5/325) 1 tab Q4H PRN ORAL Breakthru Pain btwn Dilaudid d 08/04/17 09:00 08/11/17 08:59 08/05/17 06:12 Calcium Carbonate (Tums) 1,000 mg Q4H PRN ORAL HEARTBURN/INDIGESTION 07/20/17 18:00 08/19/17 17:59 08/01/17 13:32 Dextrose (Dextrose 50%) STAT PRN IV Hypoglycemia 07/11/17 20:30 08/10/17 20:29 Diphenhydramine HCl (Benadryl) 25 mg Q6H PRN IVP Itching 07/25/17 17:00 08/24/17 16:59 08/05/17 02:40 Finasteride (Proscar) 5 mg DAILY ORAL 07/13/17 09:00 08/12/17 08:59 08/05/17 08:47 Fluconazole (Diflucan) 200 mg Q24H ORAL 08/01/17 16:00 08/08/17 15:59 08/04/17 15:29 Heparin Sodium (Porcine) (Heparin 5000 units/ml) 5,000 units EVERY 12 HOURS SUBQ 08/01/17 21:00 08/22/17 21:00 08/05/17 08:48 Hydromorphone HCl (Dilaudid) 2 mg Q4H PRN IVP PAIN 4-10 08/04/17 09:01 08/11/17 09:00 08/05/17 08:49 Lansoprazole (Prevacid) 30 mg DAILY ORAL 07/12/17 09:00 08/11/17 08:59 08/05/17 08:47 Linezolid (Zyvox) 600 mg EVERY 12 HOURS ORAL 08/04/17 21:00 08/09/17 20:59 08/05/17 08:47 Meropenem 1 gm/ Dextrose 110 ml @ 220 mls/hr Q8HR@0300,1100,1900 IVPB 07/31/17 19:00 08/05/17 18:59 08/05/17 02:40 Nitroglycerin (Ntg) 0.4 mg Q5MIN X 3 DOSES PRN SL Prn Chest Pain 07/11/17 20:32 08/09/17 20:31 Ondansetron HCl (Zofran) 4 mg Q6H PRN IVP Nausea & Vomiting 07/11/17 20:32 08/10/17 20:31 08/05/17 04:39 Potassium Chloride (K-Dur) 40 meq DAILY ORAL 07/20/17 09:00 08/19/17 08:59 08/05/17 08:47 Risperidone (RisperDAL) 4 mg BEDTIME ORAL 07/23/17 21:00 08/22/17 20:59 08/04/17 21:47 Temazepam (Restoril) 15 mg HSPRN PRN ORAL Insomnia 08/01/17 21:00 08/08/17 20:59 08/04/17 21:49 Clay ([facility])Gabbi NP Aug 05, 2017 09:29
[2017-08-05] MEDS ORDERED: Tubing IV Secondary IV ONE (10:06)
[2017-08-05 12:00] VITALS: BP 106/77
[2017-08-05 14:20] LABS: HEMATOCRIT 29.7 % (42.0-52.0); MEAN CORPUSCULAR VOLUME 88 FL (80-99); PLATELET COUNT 344 K/UL (150-450); RED BLOOD COUNT 3.38 M/UL (4.70-6.10); RED CELL DISTRIBUTION WIDTH 14.7 % (11.6-14.8); WHITE BLOOD COUNT 9.2 K/UL (4.8-10.8)
[2017-08-05 14:46] LABS: FERRITIN 513 NG/ML (8-388); LACTATE DEHYDROGENASE 122 U/L (81-234)
[2017-08-05 15:06] LABS: % IRON SATURATION 14 % (15-50); IRON 24 ug/dL (50-175); TOTAL IRON BINDING CAPACITY 173 ug/dL (250-450)
[2017-08-05 16:00] VITALS: BP 93/59
[2017-08-05] MEDS: Fluconazole 100mg tab ORAL SCH (16:01)
[2017-08-05 20:00] VITALS: BP 109/74
[2017-08-05] MEDS ORDERED: Tums 500mg ORAL PRN (20:00)
[2017-08-05] MEDS ORDERED: Miralax 17gm pkt ORAL PRN (20:00)
[2017-08-06] VITALS: BP 103/70
--- NOTE | 2017-08-06 00:45 | Consultation ---
DATE OF CONSULTATION: 08/05/2017 NOTE: POOR AUDIO HEMATOLOGY/ONCOLOGY CONSULTATION CONSULTING PHYSICIAN: Tashi Brown M.D. REQUESTING PHYSICIAN: Brenda Martel M.D. REASON FOR CONSULTATION: Evaluation of anemia. IDENTIFYING DATA: Dear Dr. Martel, The patient is a pleasant 46-year-old male who has been hospitalized for the past month with past medical history, which is significant at this time for perforated left colon with prolonged inflammatory reaction, intraabdominal abscess, status post exploratory laparotomy on 07/08/2017 as well as 07/19/2017 with evacuation, colostomy creation abdominal washout, drain placement, midline wound dehiscence, status post exploratory laparotomy on 07/20/2017, at this time continues to have anemia, therefore, Hematology Service was consulted for further evaluation and treatment. PAST MEDICAL HISTORY: As noted above. PAST SURGICAL HISTORY: As reviewed. ALLERGIES: No known drug allergies. MEDICATIONS: Reviewed. Currently, he is on linezolid, hydrocodone, , calcium carbonate, and Tylenol. FAMILY HISTORY: Noncontributory. REVIEW OF SYSTEMS: CONSTITUTIONAL: No fevers, chills, or night sweats. SKIN: No rashes, bumps, or itching. HEENT: No headache, hearing or vision changes. BREASTS: No lumps, pain, or discharge. PULMONARY: No cough, sputum, or shortness of breath. GASTROINTESTINAL: No nausea, vomiting, or diarrhea. GENITOURINARY: No dysuria, frequency, or urgency. MUSCULOSKELETAL: No joint swelling, muscle pain, or trauma. PHYSICAL EXAMINATION: VITAL SIGNS: Reviewed. GENERAL: No distress. PULMONARY: Decreased breath sounds. Crackles at the bases. CARDIOVASCULAR: Regular rate. No S3 or S4. ABDOMEN: Soft, nontender, and nondistended. EXTREMITIES: No cyanosis, swelling, or edema. LABORATORY DATA: WBC , hemoglobin 9.6, hematocrit 26, and platelet count of 298,000. ASSESSMENT AND RECOMMENDATIONS: 1. Anemia, likely due to chronic disease, however, the patient has not had anemia workup, therefore, we will send out for reticulocyte count, B12, folic acid, iron panel with ferritin, peripheral smear, and TSH for further evaluation. 2. Leukocytosis. 3. Perforation of viscus and pneumoperitoneum, currently improving. Continue to closely monitor. Peripheral smear reviewed as well. 4. Rhabdomyolysis, currently improved with administration of IV fluids. 5. and hypoalbuminemia, likely secondary to decreased p.o. intake, malnutrition. 6. Pneumoperitoneum. 7. Chronic constipation. 8. Schizophrenia, paranoid type. 9. Smoker. 10. Amphetamine use. I appreciate the consultation. Tashi Brown M.D. DR: Dustin JOB#: [id number] CC:
[2017-08-06] MEDS: Meropenem 1 GM in D5W 110 ML IVPB SCH ×3 (02:30→18:28)
[2017-08-06] MEDS: Norco 5mg/325mg tab ORAL PRN ×3 (02:30→18:03)
[2017-08-06 04:19] VITALS: BP 98/68
[2017-08-06 08:00] VITALS: BP 94/67
--- NOTE | 2017-08-06 09:36 | General Progress Note ---
Assessment/Plan Problem List: (1) COPD (chronic obstructive pulmonary disease) ICD Codes: J44.9 - Chronic obstructive pulmonary disease, unspecified SNOMED: 57623331 (2) Constipation ICD Codes: K59.00 - Constipation, unspecified SNOMED: 61121673 (3) Opiate dependence ICD Codes: F11.20 - Opioid dependence, uncomplicated SNOMED: 07627059 Qualifiers: Qualified Codes: F11.20 - Opioid dependence, uncomplicated (4) Amphetamine abuse ICD Codes: F15.10 - Other stimulant abuse, uncomplicated SNOMED: 53439587 (5) Perforated abdominal viscus SNOMED: 027832463 Assessment/Plan on reg diet s/p surg in this admission pain control fu labs Subjective ROS Limited/Unobtainable: Yes Allergies: Coded Allergies: No Known Allergies (Unverified , 01/20/17) Subjective no event Objective Last 24 Hour Vital Signs Date Time Temp Pulse Resp B/P (MAP) Pulse Ox O2 Delivery O2 Flow Rate FiO2 08/06/17 08:00 96.6 125 20 94/67 97 96.6 08/06/17 04:19 97.9 106 19 98/68 96 97.9 08/06/17 00:00 97.7 107 19 103/70 95 Room Air 97.7 08/05/17 20:00 97.9 110 21 109/74 93 Room Air 97.9 08/05/17 16:00 98.1 110 18 93/59 94 98.1 08/05/17 14:10 97.5 08/05/17 12:00 97.5 116 19 106/77 98 97.5 Intake and Output 08/05/17 08/06/17 19:00 07:00 Intake Total 480 ml 360 ml Balance 480 ml 360 ml Intake Oral 480 ml 360 ml # Voids 4 # Bowel Movements 2 1 Laboratory Tests 08/05/17 13:40: White Blood Count 9.2, Red Blood Count 3.38L, Hemoglobin 10.0L, Hematocrit 29.7L , Mean Corpuscular Volume 88, Mean Corpuscular Hemoglobin 29.5, Mean Corpuscular Hemoglobin Concent 33.6, Red Cell Distribution Width 14.7, Platelet Count 344, Mean Platelet Volume 4.7L, Neutrophils (%) (Auto) , Lymphocytes (%) ( Auto) , Monocytes (%) (Auto) , Eosinophils (%) (Auto) , Basophils (%) (Auto) , Differential Total Cells Counted 100, Neutrophils % (Manual) 73, Lymphocytes % ( Manual) 19L, Monocytes % (Manual) 7, Eosinophils % (Manual) 1, Basophils % ( Manual) 0, Band Neutrophils 0, Platelet Estimate Adequate, Platelet Morphology Normal, Hypochromasia 1+, Anisocytosis 1+, Reticulocyte Count 1.7, Haptoglobin [ Pending], Fibrinogen 627H, Uric Acid 2.6, Iron Level 24L, Total Iron Binding Capacity 173L, Percent Iron Saturation 14L, Unsaturated Iron Binding 149, Soluble Transferrin Receptor [Pending], Ferritin 513H, Lactate Dehydrogenase 122 , Vitamin B12 Level 424, Methylmalonic Acid [Pending], Folate 9.5, Thyroid Stimulating Hormone (TSH) 4.156H 08/05/17 18:10: Stool Occult Blood [Pending] Height (Feet): 5 Height (Inches): 9.00 Weight (Pounds): 125 General Appearance: alert EENT: normal ENT inspection Neck: supple Cardiovascular: normal rate Respiratory/Chest: decreased breath sounds Abdomen: normal bowel sounds, non tender, soft Extremities: non-tender APOLONIA ANTONY Aug 06, 2017 09:36
[2017-08-06] MEDS: Heparin 5000 units/ml inj SUBQ SCH ×2 (09:39→20:26)
--- NOTE | 2017-08-06 09:59 | Nephrology Progress Note ---
Assessment/Plan Problem List: (1) ARF (acute renal failure) (2) UTI (urinary tract infection) (3) Psychiatric disorder (4) Acute abdomen Assessment Status: WBCs wnl had multi abdominal drains acute renal failure- extended left colectomy due to perf transverse colostomy creation Plan Plan: per charles, 07/20/17 Mag and K supplement as needed DC horan DC IV PT advance diet Post op ( OP 07/08/17) Horan- 2D echo normal Ej Fx Albumin bollous monitor renal parameters K and Phos and Mag supplement as needed Subjective ROS Limited/Unobtainable: No Constitutional: Reports: malaise Objective Objective Last 24 Hour Vital Signs Date Time Temp Pulse Resp B/P (MAP) Pulse Ox O2 Delivery O2 Flow Rate FiO2 08/06/17 08:00 96.6 125 20 94/67 97 96.6 08/06/17 04:19 97.9 106 19 98/68 96 97.9 08/06/17 00:00 97.7 107 19 103/70 95 Room Air 97.7 08/05/17 20:00 97.9 110 21 109/74 93 Room Air 97.9 08/05/17 16:00 98.1 110 18 93/59 94 98.1 08/05/17 14:10 97.5 08/05/17 12:00 97.5 116 19 106/77 98 97.5 Intake and Output 08/05/17 08/06/17 19:00 07:00 Intake Total 480 ml 360 ml Balance 480 ml 360 ml Intake Oral 480 ml 360 ml # Voids 4 # Bowel Movements 2 1 Laboratory Tests 08/05/17 13:40: White Blood Count 9.2, Red Blood Count 3.38L, Hemoglobin 10.0L, Hematocrit 29.7L , Mean Corpuscular Volume 88, Mean Corpuscular Hemoglobin 29.5, Mean Corpuscular Hemoglobin Concent 33.6, Red Cell Distribution Width 14.7, Platelet Count 344, Mean Platelet Volume 4.7L, Neutrophils (%) (Auto) , Lymphocytes (%) ( Auto) , Monocytes (%) (Auto) , Eosinophils (%) (Auto) , Basophils (%) (Auto) , Differential Total Cells Counted 100, Neutrophils % (Manual) 73, Lymphocytes % ( Manual) 19L, Monocytes % (Manual) 7, Eosinophils % (Manual) 1, Basophils % ( Manual) 0, Band Neutrophils 0, Platelet Estimate Adequate, Platelet Morphology Normal, Hypochromasia 1+, Anisocytosis 1+, Reticulocyte Count 1.7, Haptoglobin [ Pending], Fibrinogen 627H, Uric Acid 2.6, Iron Level 24L, Total Iron Binding Capacity 173L, Percent Iron Saturation 14L, Unsaturated Iron Binding 149, Soluble Transferrin Receptor [Pending], Ferritin 513H, Lactate Dehydrogenase 122 , Vitamin B12 Level 424, Methylmalonic Acid [Pending], Folate 9.5, Thyroid Stimulating Hormone (TSH) 4.156H 08/05/17 18:10: Stool Occult Blood [Pending] Height (Feet): 5 Height (Inches): 9.00 Weight (Pounds): 125 General Appearance: no apparent distress Objective no other change NOEMY MARK Aug 06, 2017 09:59
[2017-08-06 12:00] VITALS: BP 104/73
--- NOTE | 2017-08-06 12:53 | General Progress Note ---
Assessment/Plan Status: stable, progressing Assessment/Plan Schizophrenia CPT Encephalopathy PLAN: - increase the risperidone to 4 mg at bedtime. Subjective Date patient seen: Aug 06, 2017 Neurologic/Psychiatric: Reports: anxiety, depressed, emotional problems Allergies: Coded Allergies: No Known Allergies (Unverified , 01/20/17) Subjective the pt is calmer more organized. meds seeking Objective Last 24 Hour Vital Signs Date Time Temp Pulse Resp B/P (MAP) Pulse Ox O2 Delivery O2 Flow Rate FiO2 08/06/17 12:00 96.0 111 18 104/73 96 96.0 08/06/17 08:00 96.6 125 20 94/67 97 96.6 08/06/17 07:54 Nasal Cannula 2.0 28 08/06/17 07:54 96 Nasal Cannula 2.0 28 08/06/17 04:19 97.9 106 19 98/68 96 97.9 08/06/17 00:00 97.7 107 19 103/70 95 Room Air 97.7 08/05/17 20:00 97.9 110 21 109/74 93 Room Air 97.9 08/05/17 16:00 98.1 110 18 93/59 94 98.1 08/05/17 14:10 97.5 Intake and Output 08/05/17 08/06/17 19:00 07:00 Intake Total 480 ml 360 ml Balance 480 ml 360 ml Intake Oral 480 ml 360 ml # Voids 4 # Bowel Movements 2 1 Laboratory Tests 08/05/17 13:40: White Blood Count 9.2, Red Blood Count 3.38L, Hemoglobin 10.0L, Hematocrit 29.7L , Mean Corpuscular Volume 88, Mean Corpuscular Hemoglobin 29.5, Mean Corpuscular Hemoglobin Concent 33.6, Red Cell Distribution Width 14.7, Platelet Count 344, Mean Platelet Volume 4.7L, Neutrophils (%) (Auto) , Lymphocytes (%) ( Auto) , Monocytes (%) (Auto) , Eosinophils (%) (Auto) , Basophils (%) (Auto) , Differential Total Cells Counted 100, Neutrophils % (Manual) 73, Lymphocytes % ( Manual) 19L, Monocytes % (Manual) 7, Eosinophils % (Manual) 1, Basophils % ( Manual) 0, Band Neutrophils 0, Other Cell Type Pathologist comment, Platelet Estimate Adequate, Platelet Morphology Normal, Hypochromasia 1+, Anisocytosis 1+ , Reticulocyte Count 1.7, Haptoglobin [Pending], Fibrinogen 627H, Uric Acid 2.6 , Iron Level 24L, Total Iron Binding Capacity 173L, Percent Iron Saturation 14L , Unsaturated Iron Binding 149, Soluble Transferrin Receptor [Pending], Ferritin 513H, Lactate Dehydrogenase 122, Vitamin B12 Level 424, Methylmalonic Acid [Pending], Folate 9.5, Thyroid Stimulating Hormone (TSH) 4.156H 08/05/17 18:10: Stool Occult Blood Negative Height (Feet): 5 Height (Inches): 9.00 Weight (Pounds): 125 Idalia Montanez M.D. Aug 06, 2017 12:53
--- NOTE | 2017-08-06 12:57 | General Surgery Progress Note ---
General Surgery-Progress Note Subjective Procedure Performed exploratory laparotomy, abdominal washout, evacuation of abscess, drain placement and abdominal closure Symptoms: improved, tolerating diet, BM Additional Comments ostomy bag changed. doing well. Objective Last 24 Hour Vital Signs Date Time Temp Pulse Resp B/P (MAP) Pulse Ox O2 Delivery O2 Flow Rate FiO2 08/06/17 12:00 96.0 111 18 104/73 96 96.0 08/06/17 08:00 96.6 125 20 94/67 97 96.6 08/06/17 07:54 Nasal Cannula 2.0 28 08/06/17 07:54 96 Nasal Cannula 2.0 28 08/06/17 04:19 97.9 106 19 98/68 96 97.9 08/06/17 00:00 97.7 107 19 103/70 95 Room Air 97.7 08/05/17 20:00 97.9 110 21 109/74 93 Room Air 97.9 08/05/17 16:00 98.1 110 18 93/59 94 98.1 08/05/17 14:10 97.5 I&O Intake and Output 08/05/17 08/06/17 19:00 07:00 Intake Total 480 ml 360 ml Balance 480 ml 360 ml Intake Oral 480 ml 360 ml # Voids 4 # Bowel Movements 2 1 Wound: clean Drains: none Cardiovascular: RSR Respiratory: clear Abdomen: soft, flat, present bowel sounds Extremities: no edema, no tenderness Laboratory Tests Test 08/05/17 13:40 08/05/17 18:10 White Blood Count 9.2 K/UL (4.8-10.8) Red Blood Count 3.38 M/UL (4.70-6.10) L Hemoglobin 10.0 G/DL (14.2-18.0) L Hematocrit 29.7 % (42.0-52.0) L Mean Corpuscular Volume 88 FL (80-99) Mean Corpuscular Hemoglobin 29.5 PG (27.0-31.0) Mean Corpuscular Hemoglobin Concent 33.6 G/DL (32.0-36.0) Red Cell Distribution Width 14.7 % (11.6-14.8) Platelet Count 344 K/UL (150-450) Mean Platelet Volume 4.7 FL (6.5-10.1) L Neutrophils (%) (Auto) % (45.0-75.0) Lymphocytes (%) (Auto) % (20.0-45.0) Monocytes (%) (Auto) % (1.0-10.0) Eosinophils (%) (Auto) % (0.0-3.0) Basophils (%) (Auto) % (0.0-2.0) Differential Total Cells Counted 100 Neutrophils % (Manual) 73 % (45-75) Lymphocytes % (Manual) 19 % (20-45) L Monocytes % (Manual) 7 % (1-10) Eosinophils % (Manual) 1 % (0-3) Basophils % (Manual) 0 % (0-2) Band Neutrophils 0 % (0-8) Other Cell Type Pathologist comment Platelet Estimate Adequate Platelet Morphology Normal Hypochromasia 1+ Anisocytosis 1+ Reticulocyte Count 1.7 % (0.0-2.0) Haptoglobin Pending Fibrinogen 627 mg/dL (200-400) H Uric Acid 2.6 MG/DL (2.6-7.2) Iron Level 24 ug/dL (50-175) L Total Iron Binding Capacity 173 ug/dL (250-450) L Percent Iron Saturation 14 % (15-50) L Unsaturated Iron Binding 149 ug/dL (112-346) Soluble Transferrin Receptor Pending Ferritin 513 NG/ML (8-388) H Lactate Dehydrogenase 122 U/L (81-234) Vitamin B12 Level 424 PG/ML (193-986) Methylmalonic Acid Pending Folate 9.5 NG/ML (8.6-58.9) Thyroid Stimulating Hormone (TSH) 4.156 uiU/mL (0.358-3.740) Stool Occult Blood Negative (NEGATIVE) Assessment Post-op Diagnosis abdominal dehiscence, intraabdominal abscess Plan Problems: (1) Perforated abdominal viscus Assessment & Plan: perforated abdominal viscus as noted on CT. exam with peritonitis generalized but with focus in LLQ. history of psych illness but currently AAOx4 and cooperative with exam. poor historian. possible drug seeking behavior. s/p Ex lap with abdominal washout, left colectomy and creation of transverse colostomy. Noted to have larger perforation in sigmoid likely stercoarl given operative findings. large left perisplenic abscess evacuated. drains placed. post operatively improved but after a few days noted to have purulent drainage out of left upper quadrant drain. CT demonstrated reaccumulation of large complex abscess despite extensive washout on initial operation. IR drain placed and pus evacuated but could not resolve complex collection. micro with multiorganism. midline wound dehiscence. decision made for re-exploration with washout, drains, and midline closure. s/p re-exploration with washout, drains, and midline closure on 07/20. large complex abscess noted, evacuated, washout, drains placed. midline fascia closed. doing well. recovering. improved pain afebrile, HD stable, labs reviewed. All surgical drains removed now. upon removal minimal serous output. exam benign. Repeat CT noted. no abscess noted. liver fluid collections do not look like abscess and are likely subcapsular trauma from surgery. leukocytosis resolved. -cont IV Abx. appreciate ID input. -midline wound packing and dressings TID -at this point he looks much better and is improving. labs okay. abdomen benign. wound clean. ostomy functional. d/c planning to SNF for IV ABX and recovery. will need to have midline dressing changes for a few weeks until ready for either primary closure or skin graft. okay to d/c from surgical standpoint to SNF with IV Abx. Gilberto Michelle Aug 06, 2017 12:57
--- NOTE | 2017-08-06 14:30 | Infectious Diseases Prog Note ---
Assessment/Plan Assessment/Plan ASSESSMENT: The patient is a 46-year-old male with; Bowel perf w/ development of 2 Abscess (subphrenic and pelvic) Cx: E coli( ESBL) and ENTEROCOCCUS AVIUM (turcios S) and Bact Fragilis - s/p I+D x2- now almost complete resolution of abscess -CT abd/p w/ 08/02: Mostly resolved left upper quadrant and right upper quadrant fluid collections, post surgical evacuation. Minimal residual fluid as described. Appearance of the residual fluid is nonspecific as regards whether or not infected. Other postsurgical changes, as described, including the minimal residual pneumoperitoneum, surgical drain removal. 2 new fluid collections within the liver, could represent small hepatic abscesses versus noninfected acquired fluid collections, possibly related to surgical trauma. Dilated proximal small bowel, gradually narrowing to normal caliber more distally. No evidence of obstruction, as ingested contrast is seen to traverse the entirety of the GI tract. Small splenic hilar, gastric varices. This, in combination with mesenteric congestion, could indicate portal hypertension. However, no morphologic changes of the liver to suggest cirrhosis are evident. Moderate right pleural effusion, slightly decreased in size from the previous study. Trace left pleural effusion, significantly decreased in size from the previous study. Gas within the bladder. Probably related to recent instrumentation. If there is no history of recent Dickens catheterization, however , the possibility of emphysematous cystitis should be considered -s/p exploratory laparotomy, abdominal washout, evacuation of abscess, drain placement and abdominal closure 07/20; cx not received in the lab -s/p CT guided drainage APOLLO fluid collection 07/19: Aspiration and drainage of left upper quadrant collection, yielding 150 mL of carin pus. Note that the collection could only be partially evacuated, however, despite confirmation of apparent adequate position of the drain.This may indicate high viscosity of the contents; cx E. fecalis (turcios S), PREVOTELLA LOESCHEII (Aumgentin, Clinda R; Metronidazole S) s/p ex lap with left colectomy and transverse colostomy for perforated left colon, evacuation of intrabd abscess, abd washout w/ drain placement 07/09 -CT abd/p w/ 07/18: Postsurgical changes, as described, status post transverse colectomy, Jazz procedure, and placement of multiple surgical drains. Left upper quadrant intraperitoneal fluid collection, despite the presence of a surgical drain in the center of the collection. The presence of gas bubbles within rather than floating nondependently in the collection indicate that this fluid may be viscous. 2 other significant intraperitoneal collections,which do not appear to communicate, possibly loculated. Given presence of somewhat thick enhancing rim surrounding all of these, infected collections are certainly possible ( left paracolic gutter 5.8 cmx 4.3 cm x 8.3cm and R paracolic gutter, medial and inferior to tip R hepatic lobe 8cm x 6.4cm x8cm). Other than the gas within the left upper quadrant collection, previously demonstrated pneumoperitoneum has largely resolved. Left upper quadrant thick walled small bowel loops. Possibly reactive due to adjacent inflammation, enteritis is also possible. No evidence of bowel obstruction. Gallbladder wall edema versus pericholecystic fluid. -OR findings: The omentum was significantly thickened and adhesed to the small bowel and into the left lower quadrant. There was significant inflammatory process throughout the abdomen including a thickening of almost the entire peritoneal lining. The proximal portion of the jejunum was significantly thickened and had a rind of inflammatory infectious tissue on it. left transverse and descending colon, there was significant amount of thickening and significant disease process with some areas of mild ischemia noted and in the descending colon around the descending and sigmoid junction, there was a gross perforation with grossspillage of bowel contents noted in the area. there was a fluid collection/pelvic abscess, which was evacuated. There was a fluid collection in the right upper quadrant around the liver, which was evacuated and a large left upper quadrant subphrenic abscess with significant tissue rind and thickening around the stomach, spleen, peritoneum, and diaphragm in that location. CT : Evidence of perforation of hollow viscus with extensive amount of free air in the upper abdomen and some free fluid is well. Fever, SP Leukocytosis SP -07/31 Cdiff neg -07/15 Bcx Neg ?PNA, resolving -CXR 07/31: Improved left basilar consolidation, since 07/15/2017. Some residual atelectasis and possibly minimal residual consolidation. Decreased but persistent pleural fluid on the left. Resolved right mid and lower lung consolidation. Some residual perihilar atelectasis. New or increased small right pleural effusion. Left upper quadrant surgical drain Elevated ALP , improved -Abd US: Negative for gallstones. There is borderline gallbladder wall thickening, however. Most likely, this is reactive secondary to surrounding inflammation related to recent bowel perforation and surgery for such. However, the possibility of acalculous acute cholecystitis should be considered, and consideration for nuclear medicine hepatobiliary scanning if there is high clinical suspicion history of diarrhea, SP RAMSEY: Improved HTN COPD/asthma. Smoker. History of chronic constipation. Osteoarthritis. ? CAD/SD, hx PLAN: -Continue IV Meropenem abx d#27, Fluconazole #17, Linezolid #14 until 08/10/17; ok to discharge on this regimen -weekly CBC/CMP --08/02 SP IV ampicillin #17 --07/21 Zosyn #4 --07/18 SP Ertapenem, PO Amoxicillin #3 --07/16 SP Cefepime #2 --07/12 SP Zosyn d# 6 --SP Rocephin d# 5 -surgery following -wound care -Trend WBC Subjective Allergies: Coded Allergies: No Known Allergies (Unverified , 01/20/17) Subjective afebrile Objective Vital Signs Last 24 Hour Vital Signs Date Time Temp Pulse Resp B/P (MAP) Pulse Ox O2 Delivery O2 Flow Rate FiO2 08/06/17 12:00 96.0 111 18 104/73 96 96.0 08/06/17 08:00 96.6 125 20 94/67 97 96.6 08/06/17 07:54 Nasal Cannula 2.0 28 08/06/17 07:54 96 Nasal Cannula 2.0 28 08/06/17 04:19 97.9 106 19 98/68 96 97.9 08/06/17 00:00 97.7 107 19 103/70 95 Room Air 97.7 08/05/17 20:00 97.9 110 21 109/74 93 Room Air 97.9 08/05/17 16:00 98.1 110 18 93/59 94 98.1 Height (Feet): 5 Height (Inches): 9.00 Weight (Pounds): 125 HEENT: anicteric Respiratory/Chest: normal breath sounds Cardiovascular: regular rhythm Abdomen: no organomegaly Laboratory Tests Test 08/05/17 18:10 Stool Occult Blood Negative (NEGATIVE) Current Medications Medications (Trade) Dose Ordered Sig/Kayy Route PRN Reason Start Time Stop Time Status Last Admin Dose Admin Acetaminophen (Tylenol) 650 mg Q6H PRN ORAL Mild Pain/Temp > 100.5 07/14/17 19:00 08/13/17 18:59 07/21/17 12:18 Acetaminophen/ Hydrocodone Bitart ([place] 5/325) 1 tab Q4H PRN ORAL Breakthru Pain btwn Dilaudid d 08/04/17 09:00 08/11/17 08:59 08/06/17 12:05 Calcium Carbonate (Tums) 1,000 mg Q4H PRN ORAL HEARTBURN/INDIGESTION 07/20/17 18:00 08/19/17 17:59 08/01/17 13:32 Dextrose (Dextrose 50%) STAT PRN IV Hypoglycemia 07/11/17 20:30 08/10/17 20:29 Diphenhydramine HCl (Benadryl) 25 mg Q6H PRN IVP Itching 07/25/17 17:00 08/24/17 16:59 08/05/17 12:28 Finasteride (Proscar) 5 mg DAILY ORAL 07/13/17 09:00 08/12/17 08:59 08/06/17 09:46 Fluconazole (Diflucan) 200 mg Q24H ORAL 08/01/17 16:00 08/10/17 15:59 08/05/17 16:01 Heparin Sodium (Porcine) (Heparin 5000 units/ml) 5,000 units EVERY 12 HOURS SUBQ 08/01/17 21:00 08/22/17 21:00 08/06/17 09:39 Hydromorphone HCl (Dilaudid) 2 mg Q4H PRN IVP PAIN 4-10 08/04/17 09:01 08/11/17 09:00 08/06/17 09:33 Lansoprazole (Prevacid) 30 mg DAILY ORAL 07/12/17 09:00 08/11/17 08:59 08/06/17 09:32 Linezolid (Zyvox) 600 mg EVERY 12 HOURS ORAL 08/04/17 21:00 08/10/17 20:59 08/06/17 09:32 Meropenem 1 gm/ Dextrose 110 ml @ 220 mls/hr Q8HR@0300,1100,1900 IVPB 07/31/17 19:00 08/10/17 18:59 08/06/17 12:05 Nitroglycerin (Ntg) 0.4 mg Q5MIN X 3 DOSES PRN SL Prn Chest Pain 07/11/17 20:32 08/09/17 20:31 Ondansetron HCl (Zofran) 4 mg Q6H PRN IVP Nausea & Vomiting 07/11/17 20:32 08/10/17 20:31 08/06/17 13:28 Potassium Chloride (K-Dur) 40 meq DAILY ORAL 07/20/17 09:00 08/19/17 08:59 08/06/17 09:32 Risperidone (RisperDAL) 4 mg BEDTIME ORAL 07/23/17 21:00 08/22/17 20:59 08/05/17 20:30 Temazepam (Restoril) 15 mg HSPRN PRN ORAL Insomnia 08/01/17 21:00 08/08/17 20:59 08/05/17 20:34 Rick Arvizu MD Aug 06, 2017 14:30
[2017-08-06 16:00] VITALS: BP 108/73
[2017-08-06] MEDS: Fluconazole 100mg tab ORAL SCH (16:17)
[2017-08-06 20:00] VITALS: BP 112/77
[2017-08-06] MEDS: DiphenhydrAMINE 50mg/ml Inj IVP PRN (21:37)
--- NOTE | 2017-08-06 22:46 | Pulmonology Progress Note ---
Assessment/Plan Problems: (1) Perforated abdominal viscus (2) ARF (acute renal failure) (3) Psychosis (4) Acute constipation (5) Amphetamine abuse Assessment/Plan symptomatic treamtment f/u wbc and clinically d/w surgeon iv fluids continue abx pain management med/surg check electrolytes Subjective ROS Limited/Unobtainable: No Allergies: Coded Allergies: No Known Allergies (Unverified , 01/20/17) Objective Last 24 Hour Vital Signs Date Time Temp Pulse Resp B/P (MAP) Pulse Ox O2 Delivery O2 Flow Rate FiO2 08/06/17 20:54 97.0 08/06/17 20:24 97.0 08/06/17 20:00 98.5 110 19 112/77 98 98.5 08/06/17 16:00 97.0 109 20 108/73 97 97.0 08/06/17 12:00 96.0 111 18 104/73 96 96.0 08/06/17 08:00 96.6 125 20 94/67 97 96.6 08/06/17 07:54 Nasal Cannula 2.0 28 08/06/17 07:54 96 Nasal Cannula 2.0 28 08/06/17 04:19 97.9 106 19 98/68 96 97.9 08/06/17 00:00 97.7 107 19 103/70 95 Room Air 97.7 Intake and Output 08/05/17 08/06/17 19:00 07:00 Intake Total 480 ml 360 ml Balance 480 ml 360 ml Intake Oral 480 ml 360 ml # Voids 4 # Bowel Movements 2 1 Objective General Appearance: WD/WN Lines, tubes and drains: peripheral HEENT: normocephalic, atraumatic Neck: non-tender, normal alignment Respiratory/Chest: chest wall non-tender, lungs clear Breasts: no masses Cardiovascular/Chest: normal peripheral pulses, normal rate Abdomen: normal bowel sounds, clean dressing Genitourinary/Rectal: normal genital exam, heme negative stool Extremities: normal range of motion, non-tender Skin Exam: normal pigmentation Current Medications Medications (Trade) Dose Ordered Sig/Kayy Route PRN Reason Start Time Stop Time Status Last Admin Dose Admin Acetaminophen (Tylenol) 650 mg Q6H PRN ORAL Mild Pain/Temp > 100.5 07/14/17 19:00 08/13/17 18:59 07/21/17 12:18 Acetaminophen/ Hydrocodone Bitart ([place] 5/325) 1 tab Q4H PRN ORAL Breakthru Pain btwn Dilaudid d 08/04/17 09:00 08/11/17 08:59 08/06/17 18:03 Calcium Carbonate (Tums) 1,000 mg Q4H PRN ORAL HEARTBURN/INDIGESTION 07/20/17 18:00 08/19/17 17:59 08/01/17 13:32 Dextrose (Dextrose 50%) STAT PRN IV Hypoglycemia 07/11/17 20:30 08/10/17 20:29 Diphenhydramine HCl (Benadryl) 25 mg Q6H PRN IVP Itching 07/25/17 17:00 08/24/17 16:59 08/06/17 21:37 Finasteride (Proscar) 5 mg DAILY ORAL 07/13/17 09:00 08/12/17 08:59 08/06/17 09:46 Fluconazole (Diflucan) 200 mg Q24H ORAL 08/01/17 16:00 08/10/17 15:59 08/06/17 16:17 Heparin Sodium (Porcine) (Heparin 5000 units/ml) 5,000 units EVERY 12 HOURS SUBQ 08/01/17 21:00 08/22/17 21:00 08/06/17 20:26 Hydromorphone HCl (Dilaudid) 2 mg Q4H PRN IVP PAIN 4-10 08/04/17 09:01 08/11/17 09:00 08/06/17 20:24 Lansoprazole (Prevacid) 30 mg DAILY ORAL 07/12/17 09:00 08/11/17 08:59 08/06/17 09:32 Linezolid (Zyvox) 600 mg EVERY 12 HOURS ORAL 08/04/17 21:00 08/10/17 20:59 08/06/17 20:23 Meropenem 1 gm/ Dextrose 110 ml @ 220 mls/hr Q8HR@0300,1100,1900 IVPB 07/31/17 19:00 08/10/17 18:59 08/06/17 18:28 Nitroglycerin (Ntg) 0.4 mg Q5MIN X 3 DOSES PRN SL Prn Chest Pain 07/11/17 20:32 08/09/17 20:31 Ondansetron HCl (Zofran) 4 mg Q6H PRN IVP Nausea & Vomiting 07/11/17 20:32 08/10/17 20:31 08/06/17 13:28 Potassium Chloride (K-Dur) 40 meq DAILY ORAL 07/20/17 09:00 08/19/17 08:59 08/06/17 09:32 Risperidone (RisperDAL) 4 mg BEDTIME ORAL 07/23/17 21:00 08/22/17 20:59 08/06/17 20:23 Temazepam (Restoril) 15 mg HSPRN PRN ORAL Insomnia 08/01/17 21:00 08/08/17 20:59 08/06/17 21:38 Brenda Martel MD Aug 06, 2017 22:46
[2017-08-07] VITALS (7 sets, daily range): BP systolic 81–106; BP diastolic 55–71
[2017-08-07] MEDS: Meropenem 1 GM in D5W 110 ML IVPB SCH ×3 (03:14→18:47)
--- NOTE | 2017-08-07 09:07 | Infectious Diseases Prog Note ---
Assessment/Plan Assessment/Plan ASSESSMENT: The patient is a 46-year-old male with; Bowel perf w/ development of 2 Abscess (subphrenic and pelvic) Cx: E coli( ESBL) and ENTEROCOCCUS AVIUM (turcios S) and Bact Fragilis - s/p I+D x2- now almost complete resolution of abscess -CT abd/p w/ 08/02: Mostly resolved left upper quadrant and right upper quadrant fluid collections, post surgical evacuation. Minimal residual fluid as described. Appearance of the residual fluid is nonspecific as regards whether or not infected. Other postsurgical changes, as described, including the minimal residual pneumoperitoneum, surgical drain removal. 2 new fluid collections within the liver, could represent small hepatic abscesses versus noninfected acquired fluid collections, possibly related to surgical trauma. Dilated proximal small bowel, gradually narrowing to normal caliber more distally. No evidence of obstruction, as ingested contrast is seen to traverse the entirety of the GI tract. Small splenic hilar, gastric varices. This, in combination with mesenteric congestion, could indicate portal hypertension. However, no morphologic changes of the liver to suggest cirrhosis are evident. Moderate right pleural effusion, slightly decreased in size from the previous study. Trace left pleural effusion, significantly decreased in size from the previous study. Gas within the bladder. Probably related to recent instrumentation. If there is no history of recent Dickens catheterization, however , the possibility of emphysematous cystitis should be considered -s/p exploratory laparotomy, abdominal washout, evacuation of abscess, drain placement and abdominal closure 07/20; cx not received in the lab -s/p CT guided drainage APOLLO fluid collection 07/19: Aspiration and drainage of left upper quadrant collection, yielding 150 mL of carin pus. Note that the collection could only be partially evacuated, however, despite confirmation of apparent adequate position of the drain.This may indicate high viscosity of the contents; cx E. fecalis (turcios S), PREVOTELLA LOESCHEII ([place]um[place]in, Clinda R; Metronidazole S) s/p ex lap with left colectomy and transverse colostomy for perforated left colon, evacuation of intrabd abscess, abd washout w/ drain placement 07/09 -CT abd/p w/ 07/18: Postsurgical changes, as described, status post transverse colectomy, Jazz procedure, and placement of multiple surgical drains. Left upper quadrant intraperitoneal fluid collection, despite the presence of a surgical drain in the center of the collection. The presence of gas bubbles within rather than floating nondependently in the collection indicate that this fluid may be viscous. 2 other significant intraperitoneal collections,which do not appear to communicate, possibly loculated. Given presence of somewhat thick enhancing rim surrounding all of these, infected collections are certainly possible ( left paracolic gutter 5.8 cmx 4.3 cm x 8.3cm and R paracolic gutter, medial and inferior to tip R hepatic lobe 8cm x 6.4cm x8cm). Other than the gas within the left upper quadrant collection, previously demonstrated pneumoperitoneum has largely resolved. Left upper quadrant thick walled small bowel loops. Possibly reactive due to adjacent inflammation, enteritis is also possible. No evidence of bowel obstruction. Gallbladder wall edema versus pericholecystic fluid. -OR findings: The omentum was significantly thickened and adhesed to the small bowel and into the left lower quadrant. There was significant inflammatory process throughout the abdomen including a thickening of almost the entire peritoneal lining. The proximal portion of the jejunum was significantly thickened and had a rind of inflammatory infectious tissue on it. left transverse and descending colon, there was significant amount of thickening and significant disease process with some areas of mild ischemia noted and in the descending colon around the descending and sigmoid junction, there was a gross perforation with grossspillage of bowel contents noted in the area. there was a fluid collection/pelvic abscess, which was evacuated. There was a fluid collection in the right upper quadrant around the liver, which was evacuated and a large left upper quadrant subphrenic abscess with significant tissue rind and thickening around the stomach, spleen, peritoneum, and diaphragm in that location. CT : Evidence of perforation of hollow viscus with extensive amount of free air in the upper abdomen and some free fluid is well. Fever, SP Leukocytosis SP -07/31 Cdiff neg -07/15 Bcx Neg ?PNA, SP Rx -CXR 07/31: Improved left basilar consolidation, since 07/15/2017. Some residual atelectasis and possibly minimal residual consolidation. Decreased but persistent pleural fluid on the left. Resolved right mid and lower lung consolidation. Some residual perihilar atelectasis. New or increased small right pleural effusion. Left upper quadrant surgical drain Elevated ALP , improved -Abd US: Negative for gallstones. There is borderline gallbladder wall thickening, however. Most likely, this is reactive secondary to surrounding inflammation related to recent bowel perforation and surgery for such. However, the possibility of acalculous acute cholecystitis should be considered, and consideration for nuclear medicine hepatobiliary scanning if there is high clinical suspicion history of diarrhea, SP RAMSEY: Improved HTN COPD/asthma. Smoker. History of chronic constipation. Osteoarthritis. ? CAD/UT, hx PLAN: -Continue IV Meropenem abx d#28, Fluconazole #18, Linezolid #15 until 08/10/17; ok to discharge on this regimen -weekly CBC/CMP --08/02 SP IV ampicillin #17 --07/21 Zosyn #4 --07/18 SP Ertapenem, PO Amoxicillin #3 --07/16 SP Cefepime #2 --07/12 SP Zosyn d# 6 --SP Rocephin d# 5 -surgery following midline wound closure needed -wound care -Trend WBC Subjective Allergies: Coded Allergies: No Known Allergies (Unverified , 01/20/17) Subjective afebrile Objective Vital Signs Last 24 Hour Vital Signs Date Time Temp Pulse Resp B/P (MAP) Pulse Ox O2 Delivery O2 Flow Rate FiO2 08/07/17 04:00 98.2 98 20 96/67 95 98.2 08/07/17 03:44 98.1 08/07/17 03:14 98.1 08/07/17 00:00 98.1 104 20 94/58 95 98.1 08/06/17 20:24 97.0 08/06/17 20:00 98.5 110 19 112/77 98 98.5 08/06/17 19:30 96 Nasal Cannula 2.0 28 08/06/17 19:30 Nasal Cannula 2.0 28 08/06/17 16:00 97.0 109 20 108/73 97 97.0 08/06/17 12:00 96.0 111 18 104/73 96 96.0 Height (Feet): 5 Height (Inches): 9.00 Weight (Pounds): 119 HEENT: anicteric Respiratory/Chest: no respiratory distress Cardiovascular: regular rhythm Abdomen: no organomegaly - midline wound Current Medications Medications (Trade) Dose Ordered Sig/Kayy Route PRN Reason Start Time Stop Time Status Last Admin Dose Admin Acetaminophen (Tylenol) 650 mg Q6H PRN ORAL Mild Pain/Temp > 100.5 07/14/17 19:00 08/13/17 18:59 07/21/17 12:18 Acetaminophen/ Hydrocodone Bitart ([place] 5/325) 1 tab Q4H PRN ORAL Breakthru Pain btwn Dilaudid d 08/04/17 09:00 08/11/17 08:59 08/06/17 18:03 Calcium Carbonate (Tums) 1,000 mg Q4H PRN ORAL HEARTBURN/INDIGESTION 07/20/17 18:00 08/19/17 17:59 08/01/17 13:32 Dextrose (Dextrose 50%) STAT PRN IV Hypoglycemia 07/11/17 20:30 08/10/17 20:29 Diphenhydramine HCl (Benadryl) 25 mg Q6H PRN IVP Itching 07/25/17 17:00 08/24/17 16:59 08/06/17 21:37 Finasteride (Proscar) 5 mg DAILY ORAL 07/13/17 09:00 08/12/17 08:59 08/06/17 09:46 Fluconazole (Diflucan) 200 mg Q24H ORAL 08/01/17 16:00 08/10/17 15:59 08/06/17 16:17 Heparin Sodium (Porcine) (Heparin 5000 units/ml) 5,000 units EVERY 12 HOURS SUBQ 08/01/17 21:00 08/22/17 21:00 08/06/17 20:26 Hydromorphone HCl (Dilaudid) 2 mg Q4H PRN IVP PAIN 4-10 08/04/17 09:01 08/11/17 09:00 08/07/17 08:09 Lansoprazole (Prevacid) 30 mg DAILY ORAL 07/12/17 09:00 08/11/17 08:59 08/06/17 09:32 Linezolid (Zyvox) 600 mg EVERY 12 HOURS ORAL 08/04/17 21:00 08/10/17 20:59 08/06/17 20:23 Meropenem 1 gm/ Dextrose 110 ml @ 220 mls/hr Q8HR@0300,1100,1900 IVPB 07/31/17 19:00 08/10/17 18:59 08/07/17 03:14 Nitroglycerin (Ntg) 0.4 mg Q5MIN X 3 DOSES PRN SL Prn Chest Pain 07/11/17 20:32 08/09/17 20:31 Ondansetron HCl (Zofran) 4 mg Q6H PRN IVP Nausea & Vomiting 07/11/17 20:32 08/10/17 20:31 08/07/17 03:37 Potassium Chloride (K-Dur) 40 meq DAILY ORAL 07/20/17 09:00 08/19/17 08:59 08/06/17 09:32 Risperidone (RisperDAL) 4 mg BEDTIME ORAL 07/23/17 21:00 08/22/17 20:59 08/06/17 20:23 Temazepam (Restoril) 15 mg HSPRN PRN ORAL Insomnia 08/01/17 21:00 08/08/17 20:59 08/06/17 21:38 Rick Arvizu MD Aug 07, 2017 09:07
[2017-08-07] MEDS: Heparin 5000 units/ml inj SUBQ SCH ×2 (09:10→20:28)
--- NOTE | 2017-08-07 09:25 | General Progress Note ---
Assessment/Plan Problem List: (1) COPD (chronic obstructive pulmonary disease) ICD Codes: J44.9 - Chronic obstructive pulmonary disease, unspecified SNOMED: 09551093 (2) Constipation ICD Codes: K59.00 - Constipation, unspecified SNOMED: 50829280 (3) Opiate dependence ICD Codes: F11.20 - Opioid dependence, uncomplicated SNOMED: 34354607 Qualifiers: Qualified Codes: F11.20 - Opioid dependence, uncomplicated (4) Amphetamine abuse ICD Codes: F15.10 - Other stimulant abuse, uncomplicated SNOMED: 28127429 (5) Perforated abdominal viscus SNOMED: 487927862 Assessment/Plan on reg diet s/p surg in this admission pain control fu labs Subjective ROS Limited/Unobtainable: Yes Allergies: Coded Allergies: No Known Allergies (Unverified , 01/20/17) Subjective no event Objective Last 24 Hour Vital Signs Date Time Temp Pulse Resp B/P (MAP) Pulse Ox O2 Delivery O2 Flow Rate FiO2 08/07/17 08:00 98.2 117 19 100/55 96 98.2 08/07/17 04:00 98.2 98 20 96/67 95 98.2 08/07/17 03:44 98.1 08/07/17 03:14 98.1 08/07/17 00:00 98.1 104 20 94/58 95 98.1 08/06/17 20:24 97.0 08/06/17 20:00 98.5 110 19 112/77 98 98.5 08/06/17 19:30 96 Nasal Cannula 2.0 28 08/06/17 19:30 Nasal Cannula 2.0 28 08/06/17 16:00 97.0 109 20 108/73 97 97.0 08/06/17 12:00 96.0 111 18 104/73 96 96.0 Intake and Output 08/06/17 08/07/17 19:00 07:00 Intake Total 1170 ml Output Total 200 ml Balance 970 ml Intake Oral 840 ml IV Total 330 ml Stool Total 200 ml # Voids 4 3 Height (Feet): 5 Height (Inches): 9.00 Weight (Pounds): 119 General Appearance: no apparent distress EENT: normal ENT inspection Neck: supple Cardiovascular: normal rate Respiratory/Chest: decreased breath sounds Abdomen: normal bowel sounds, non tender, soft Extremities: non-tender VOSOGHI,APOLONIA Aug 07, 2017 09:25
--- NOTE | 2017-08-07 11:52 | General Progress Note ---
Progress Note Progress Note Surgery: doing much better. midline wound much smaller and very clean. healing well! nutrition improving. labs okay. good ostomy function. -okay to d/c from surgical standpoint Gilberto Michelle Aug 07, 2017 11:52
[2017-08-07] MEDS: DiphenhydrAMINE 50mg/ml Inj IVP PRN ×2 (11:53→23:41)
--- NOTE | 2017-08-07 16:43 | Nephrology Progress Note ---
Assessment/Plan Problem List: (1) ARF (acute renal failure) (2) UTI (urinary tract infection) (3) Psychiatric disorder (4) Acute abdomen Assessment Status: WBCs wnl had multi abdominal drains acute renal failure- extended left colectomy due to perf transverse colostomy creation Plan Plan: per charles, 07/20/17 Mag and K supplement as needed DC horan DC IV PT advance diet Post op ( OP 07/08/17) Horan- 2D echo normal Ej Fx Albumin bollous monitor renal parameters K and Phos and Mag supplement as needed Subjective ROS Limited/Unobtainable: No Constitutional: Reports: malaise Objective Objective Last 24 Hour Vital Signs Date Time Temp Pulse Resp B/P (MAP) Pulse Ox O2 Delivery O2 Flow Rate FiO2 08/07/17 11:48 97.7 106 18 81/58 93 97.7 08/07/17 08:00 98.2 117 19 100/55 96 98.2 08/07/17 04:00 98.2 98 20 96/67 95 98.2 08/07/17 03:44 98.1 08/07/17 03:14 98.1 08/07/17 00:00 98.1 104 20 94/58 95 98.1 08/06/17 20:24 97.0 08/06/17 20:00 98.5 110 19 112/77 98 98.5 08/06/17 19:30 96 Nasal Cannula 2.0 28 08/06/17 19:30 Nasal Cannula 2.0 28 Intake and Output 08/06/17 08/07/17 19:00 07:00 Intake Total 1170 ml Output Total 200 ml Balance 970 ml Intake Oral 840 ml IV Total 330 ml Stool Total 200 ml # Voids 4 3 Height (Feet): 5 Height (Inches): 9.00 Weight (Pounds): 119 General Appearance: no apparent distress Objective no other change NOEMY MARK Aug 07, 2017 16:43
--- NOTE | 2017-08-07 16:56 | Pulmonology Progress Note ---
Assessment/Plan Problems: (1) Perforated abdominal viscus (2) ARF (acute renal failure) (3) Psychosis (4) Acute constipation (5) Amphetamine abuse Assessment/Plan symptomatic treamtment f/u wbc and clinically d/w surgeon iv fluids continue abx pain management med/surg check electrolytes Subjective ROS Limited/Unobtainable: No Allergies: Coded Allergies: No Known Allergies (Unverified , 01/20/17) Objective Last 24 Hour Vital Signs Date Time Temp Pulse Resp B/P (MAP) Pulse Ox O2 Delivery O2 Flow Rate FiO2 08/07/17 11:48 97.7 106 18 81/58 93 97.7 08/07/17 08:00 98.2 117 19 100/55 96 98.2 08/07/17 04:00 98.2 98 20 96/67 95 98.2 08/07/17 03:44 98.1 08/07/17 03:14 98.1 08/07/17 00:00 98.1 104 20 94/58 95 98.1 08/06/17 20:24 97.0 08/06/17 20:00 98.5 110 19 112/77 98 98.5 08/06/17 19:30 96 Nasal Cannula 2.0 28 08/06/17 19:30 Nasal Cannula 2.0 28 Intake and Output 08/06/17 08/07/17 19:00 07:00 Intake Total 1170 ml Output Total 200 ml Balance 970 ml Intake Oral 840 ml IV Total 330 ml Stool Total 200 ml # Voids 4 3 Objective General Appearance: WD/WN Lines, tubes and drains: peripheral HEENT: normocephalic, atraumatic Neck: non-tender, normal alignment Respiratory/Chest: chest wall non-tender, lungs clear Breasts: no masses Cardiovascular/Chest: normal peripheral pulses, normal rate Abdomen: normal bowel sounds, clean dressing Genitourinary/Rectal: normal genital exam, heme negative stool Extremities: normal range of motion, non-tender Skin Exam: normal pigmentation Current Medications Medications (Trade) Dose Ordered Sig/Kayy Route PRN Reason Start Time Stop Time Status Last Admin Dose Admin Acetaminophen (Tylenol) 650 mg Q6H PRN ORAL Mild Pain/Temp > 100.5 07/14/17 19:00 08/13/17 18:59 07/21/17 12:18 Acetaminophen/ Hydrocodone Bitart ([place] 5/325) 1 tab Q4H PRN ORAL Breakthru Pain btwn Dilaudid d 08/04/17 09:00 08/11/17 08:59 08/06/17 18:03 Calcium Carbonate (Tums) 1,000 mg Q4H PRN ORAL HEARTBURN/INDIGESTION 07/20/17 18:00 08/19/17 17:59 08/01/17 13:32 Dextrose (Dextrose 50%) STAT PRN IV Hypoglycemia 07/11/17 20:30 08/10/17 20:29 Diphenhydramine HCl (Benadryl) 25 mg Q6H PRN IVP Itching 07/25/17 17:00 08/24/17 16:59 08/07/17 11:53 Finasteride (Proscar) 5 mg DAILY ORAL 07/13/17 09:00 08/12/17 08:59 08/07/17 09:08 Fluconazole (Diflucan) 200 mg Q24H ORAL 08/01/17 16:00 08/10/17 15:59 08/06/17 16:17 Heparin Sodium (Porcine) (Heparin 5000 units/ml) 5,000 units EVERY 12 HOURS SUBQ 08/01/17 21:00 08/22/17 21:00 08/07/17 09:10 Hydromorphone HCl (Dilaudid) 2 mg Q4H PRN IVP PAIN 4-10 08/04/17 09:01 08/11/17 09:00 08/07/17 14:21 Lansoprazole (Prevacid) 30 mg DAILY ORAL 07/12/17 09:00 08/11/17 08:59 08/07/17 09:08 Linezolid (Zyvox) 600 mg EVERY 12 HOURS ORAL 08/04/17 21:00 08/10/17 20:59 08/07/17 09:08 Meropenem 1 gm/ Dextrose 110 ml @ 220 mls/hr Q8HR@0300,1100,1900 IVPB 07/31/17 19:00 08/10/17 18:59 08/07/17 11:08 Nitroglycerin (Ntg) 0.4 mg Q5MIN X 3 DOSES PRN SL Prn Chest Pain 07/11/17 20:32 08/09/17 20:31 Ondansetron HCl (Zofran) 4 mg Q6H PRN IVP Nausea & Vomiting 07/11/17 20:32 08/10/17 20:31 08/07/17 09:14 Potassium Chloride (K-Dur) 40 meq DAILY ORAL 07/20/17 09:00 08/19/17 08:59 08/07/17 09:08 Risperidone (RisperDAL) 4 mg BEDTIME ORAL 07/23/17 21:00 08/22/17 20:59 08/06/17 20:23 Temazepam (Restoril) 15 mg HSPRN PRN ORAL Insomnia 08/01/17 21:00 08/08/17 20:59 08/06/17 21:38 Brenda Martel MD Aug 07, 2017 16:56
[2017-08-07] MEDS: Fluconazole 100mg tab ORAL SCH (17:22)
[2017-08-07] MEDS: Norco 5mg/325mg tab ORAL PRN (17:22)
--- NOTE | 2017-08-07 20:34 | General Progress Note ---
Assessment/Plan Assessment/Plan 1. Anemia, likely due to chronic disease. --> No occult blood --> Anemia workup reviewed. --> Iron 24, TIBC 173, Ferritin 513, B12 424, Folate 9.5, TSH 4.2 2. Leukocytosis. --> Wbc count downtrended from yesterday and resolved at this time. 3. Perforation of viscus and pneumoperitoneum, currently improving. --> Continue to closely monitor. Peripheral smear reviewed as well. 4. Rhabdomyolysis, currently improved with administration of IV fluids. 5. Hypoalbuminemia, likely secondary to decreased p.o. intake, monitor malnutrition. 6. Pneumoperitoneum. 7. Chronic constipation. 8. Schizophrenia, paranoid type. 9. Smoker. 10. Amphetamine use. Subjective Date patient seen: Aug 06, 2017 Constitutional: Denies: no symptoms, chills, diaphoresis, fever, malaise, weakness, other HEENT: Denies: no symptoms, eye pain, blurred vision, tearing, double vision, ear pain, ear discharge, nose pain, nose congestion, throat pain, throat swelling, mouth pain, mouth swelling, other Cardiovascular: Denies: no symptoms, chest pain, edema, irregular heart rate, lightheadedness, palpitations, syncope, other Respiratory: Denies: no symptoms, cough, orthopnea, shortness of breath, SOB with excertion, SOB at rest, sputum, stridor, wheezing, other Gastrointestinal/Abdominal: Denies: no symptoms, abdomen distended, abdominal pain, black stools, tarry stools, blood in stool, constipated, diarrhea, difficulty swallowing, nausea, poor appetite, poor fluid intake, rectal bleeding , vomiting, other Genitourinary: Denies: no symptoms, burning, discharge, frequency, flank pain, hematuria, incontinence, pain, urgency, other Neurologic/Psychiatric: Denies: no symptoms, anxiety, depressed, emotional problems, headache, numbness, paresthesia, pre-existing deficit, seizure, tingling, tremors, weakness, other Hematologic/Lymphatic: Reports: anemia Allergies: Coded Allergies: No Known Allergies (Unverified , 01/20/17) Subjective No fever or chills. No hematochezia. Objective Last 24 Hour Vital Signs Date Time Temp Pulse Resp B/P (MAP) Pulse Ox O2 Delivery O2 Flow Rate FiO2 08/07/17 19:23 96.8 114 20 97/64 98 Room Air 96.8 08/07/17 16:00 98.1 100 18 106/61 97 Room Air 98.1 08/07/17 11:48 97.7 106 18 81/58 93 97.7 08/07/17 08:00 98.2 117 19 100/55 96 98.2 08/07/17 04:00 98.2 98 20 96/67 95 98.2 08/07/17 03:44 98.1 08/07/17 03:14 98.1 08/07/17 00:00 98.1 104 20 94/58 95 98.1 Intake and Output 08/06/17 08/07/17 19:00 07:00 Intake Total 1170 ml Output Total 200 ml Balance 970 ml Intake Oral 840 ml IV Total 330 ml Stool Total 200 ml # Voids 4 3 Height (Feet): 5 Height (Inches): 9.00 Weight (Pounds): 119 General Appearance: no apparent distress Respiratory/Chest: decreased breath sounds Abdomen: soft Tashi Brown MD Aug 07, 2017 20:34
--- NOTE | 2017-08-07 23:04 | General Progress Note ---
Assessment/Plan Assessment/Plan Schizophrenia CPT Encephalopathy PLAN: - increase the risperidone to 4 mg at bedtime. Subjective Allergies: Coded Allergies: No Known Allergies (Unverified , 01/20/17) Subjective the pt is calmer more organized. meds seeking Objective Last 24 Hour Vital Signs Date Time Temp Pulse Resp B/P (MAP) Pulse Ox O2 Delivery O2 Flow Rate FiO2 08/07/17 21:01 96.8 08/07/17 20:31 96.8 08/07/17 19:30 Room Air 21 08/07/17 19:30 95 Room Air 21 08/07/17 19:23 96.8 114 20 97/64 98 Room Air 96.8 08/07/17 16:00 98.1 100 18 106/61 97 Room Air 98.1 08/07/17 11:48 97.7 106 18 81/58 93 97.7 08/07/17 08:00 98.2 117 19 100/55 96 98.2 08/07/17 04:00 98.2 98 20 96/67 95 98.2 08/07/17 03:14 98.1 08/07/17 00:00 98.1 104 20 94/58 95 98.1 Intake and Output 08/06/17 08/07/17 19:00 07:00 Intake Total 1170 ml Output Total 200 ml Balance 970 ml Intake Oral 840 ml IV Total 330 ml Stool Total 200 ml # Voids 4 3 Height (Feet): 5 Height (Inches): 9.00 Weight (Pounds): 119 Idalia Montanez M.D. Aug 07, 2017 23:04
[2017-08-08] MEDS: Meropenem 1 GM in D5W 110 ML IVPB SCH ×3 (02:33→16:52)
[2017-08-08 03:46] VITALS: BP 102/66
[2017-08-08 08:00] VITALS: BP 118/74
[2017-08-08] MEDS: Norco 5mg/325mg tab ORAL PRN (08:39)
[2017-08-08] MEDS: Heparin 5000 units/ml inj SUBQ SCH ×2 (08:40→21:27)
--- NOTE | 2017-08-08 09:34 | General Progress Note ---
Assessment/Plan Problem List: (1) COPD (chronic obstructive pulmonary disease) ICD Codes: J44.9 - Chronic obstructive pulmonary disease, unspecified SNOMED: 45965934 (2) Constipation ICD Codes: K59.00 - Constipation, unspecified SNOMED: 56158197 (3) Opiate dependence ICD Codes: F11.20 - Opioid dependence, uncomplicated SNOMED: 18223398 Qualifiers: Qualified Codes: F11.20 - Opioid dependence, uncomplicated (4) Amphetamine abuse ICD Codes: F15.10 - Other stimulant abuse, uncomplicated SNOMED: 74006723 (5) Perforated abdominal viscus SNOMED: 569443047 Assessment/Plan on reg diet s/p surg in this admission pain control fu labs pending possible dc Subjective ROS Limited/Unobtainable: Yes Allergies: Coded Allergies: No Known Allergies (Unverified , 01/20/17) Subjective no event Objective Last 24 Hour Vital Signs Date Time Temp Pulse Resp B/P (MAP) Pulse Ox O2 Delivery O2 Flow Rate FiO2 08/08/17 08:39 98.1 08/08/17 08:00 97.9 114 20 118/74 96 97.9 08/08/17 04:05 98.1 08/08/17 03:46 98.1 108 20 102/66 95 Room Air 98.1 08/08/17 03:35 98.1 08/07/17 23:55 98.1 99 20 106/71 99 Room Air 98.1 08/07/17 20:31 96.8 08/07/17 19:30 Room Air 21 08/07/17 19:30 95 Room Air 21 08/07/17 19:23 96.8 114 20 97/64 98 Room Air 96.8 08/07/17 16:00 98.1 100 18 106/61 97 Room Air 98.1 08/07/17 11:48 97.7 106 18 81/58 93 97.7 Intake and Output 08/07/17 08/08/17 19:00 07:00 Intake Total 110 ml Output Total 50 ml Balance -50 ml 110 ml IV Total 110 ml Stool Total 50 ml # Voids 2 # Bowel Movements 2 Height (Feet): 5 Height (Inches): 9.00 Weight (Pounds): 122 General Appearance: no apparent distress EENT: normal ENT inspection Neck: supple Cardiovascular: normal rate Respiratory/Chest: decreased breath sounds Abdomen: soft, hypoactive bowel sounds Extremities: non-tender APOLONIA ANTONY Aug 08, 2017 09:34
[2017-08-08] MEDS: DiphenhydrAMINE 50mg/ml Inj IVP PRN ×2 (09:39→23:38)
--- NOTE | 2017-08-08 10:29 | Infectious Diseases Prog Note ---
Assessment/Plan Assessment/Plan ASSESSMENT: The patient is a 46-year-old male with; Bowel perf w/ development of 2 Abscess (subphrenic and pelvic) Cx: E coli( ESBL) and ENTEROCOCCUS AVIUM (turcios S) and Bact Fragilis - s/p I+D x2- now almost complete resolution of abscess -CT abd/p w/ 08/02: Mostly resolved left upper quadrant and right upper quadrant fluid collections, post surgical evacuation. Minimal residual fluid as described. Appearance of the residual fluid is nonspecific as regards whether or not infected. Other postsurgical changes, as described, including the minimal residual pneumoperitoneum, surgical drain removal. 2 new fluid collections within the liver, could represent small hepatic abscesses versus noninfected acquired fluid collections, possibly related to surgical trauma. Dilated proximal small bowel, gradually narrowing to normal caliber more distally. No evidence of obstruction, as ingested contrast is seen to traverse the entirety of the GI tract. Small splenic hilar, gastric varices. This, in combination with mesenteric congestion, could indicate portal hypertension. However, no morphologic changes of the liver to suggest cirrhosis are evident. Moderate right pleural effusion, slightly decreased in size from the previous study. Trace left pleural effusion, significantly decreased in size from the previous study. Gas within the bladder. Probably related to recent instrumentation. If there is no history of recent Dickens catheterization, however , the possibility of emphysematous cystitis should be considered -s/p exploratory laparotomy, abdominal washout, evacuation of abscess, drain placement and abdominal closure 07/20; cx not received in the lab -s/p CT guided drainage AOPLLO fluid collection 07/19: Aspiration and drainage of left upper quadrant collection, yielding 150 mL of carin pus. Note that the collection could only be partially evacuated, however, despite confirmation of apparent adequate position of the drain.This may indicate high viscosity of the contents; cx E. fecalis (turcios S), PREVOTELLA LOESCHEII (Aumgentin, Clinda R; Metronidazole S) s/p ex lap with left colectomy and transverse colostomy for perforated left colon, evacuation of intrabd abscess, abd washout w/ drain placement 07/09 -CT abd/p w/ 07/18: Postsurgical changes, as described, status post transverse colectomy, Jazz procedure, and placement of multiple surgical drains. Left upper quadrant intraperitoneal fluid collection, despite the presence of a surgical drain in the center of the collection. The presence of gas bubbles within rather than floating nondependently in the collection indicate that this fluid may be viscous. 2 other significant intraperitoneal collections,which do not appear to communicate, possibly loculated. Given presence of somewhat thick enhancing rim surrounding all of these, infected collections are certainly possible ( left paracolic gutter 5.8 cmx 4.3 cm x 8.3cm and R paracolic gutter, medial and inferior to tip R hepatic lobe 8cm x 6.4cm x8cm). Other than the gas within the left upper quadrant collection, previously demonstrated pneumoperitoneum has largely resolved. Left upper quadrant thick walled small bowel loops. Possibly reactive due to adjacent inflammation, enteritis is also possible. No evidence of bowel obstruction. Gallbladder wall edema versus pericholecystic fluid. -OR findings: The omentum was significantly thickened and adhesed to the small bowel and into the left lower quadrant. There was significant inflammatory process throughout the abdomen including a thickening of almost the entire peritoneal lining. The proximal portion of the jejunum was significantly thickened and had a rind of inflammatory infectious tissue on it. left transverse and descending colon, there was significant amount of thickening and significant disease process with some areas of mild ischemia noted and in the descending colon around the descending and sigmoid junction, there was a gross perforation with grossspillage of bowel contents noted in the area. there was a fluid collection/pelvic abscess, which was evacuated. There was a fluid collection in the right upper quadrant around the liver, which was evacuated and a large left upper quadrant subphrenic abscess with significant tissue rind and thickening around the stomach, spleen, peritoneum, and diaphragm in that location. CT : Evidence of perforation of hollow viscus with extensive amount of free air in the upper abdomen and some free fluid is well. Fever, SP Leukocytosis SP -07/31 Cdiff neg -07/15 Bcx Neg ?PNA, SP Rx -CXR 07/31: Improved left basilar consolidation, since 07/15/2017. Some residual atelectasis and possibly minimal residual consolidation. Decreased but persistent pleural fluid on the left. Resolved right mid and lower lung consolidation. Some residual perihilar atelectasis. New or increased small right pleural effusion. Left upper quadrant surgical drain Elevated ALP , improved -Abd US: Negative for gallstones. There is borderline gallbladder wall thickening, however. Most likely, this is reactive secondary to surrounding inflammation related to recent bowel perforation and surgery for such. However, the possibility of acalculous acute cholecystitis should be considered, and consideration for nuclear medicine hepatobiliary scanning if there is high clinical suspicion history of diarrhea, SP RAMSEY: Improved HTN COPD/asthma. Smoker. History of chronic constipation. Osteoarthritis. ? CAD/[place], hx PLAN: -Continue IV Meropenem abx d#29, Fluconazole #19, Linezolid #16 until 08/10/17; ok to discharge on this regimen -weekly CBC/CMP --08/02 SP IV ampicillin #17 --07/21 Zosyn #4 --07/18 SP Ertapenem, PO Amoxicillin #3 --07/16 SP Cefepime #2 --07/12 SP Zosyn d# 6 --SP Rocephin d# 5 -surgery following midline wound closure needed -wound care -Trend WBC Subjective Constitutional: Denies: no symptoms, fever, chills, fatigue, anorexia, drenching sweats, other Allergies: Coded Allergies: No Known Allergies (Unverified , 01/20/17) Subjective afebrile Objective Vital Signs Last 24 Hour Vital Signs Date Time Temp Pulse Resp B/P (MAP) Pulse Ox O2 Delivery O2 Flow Rate FiO2 08/08/17 09:38 98.1 08/08/17 08:39 98.1 08/08/17 08:00 97.9 114 20 118/74 96 97.9 08/08/17 04:05 98.1 08/08/17 03:46 98.1 108 20 102/66 95 Room Air 98.1 08/08/17 03:35 98.1 08/07/17 23:55 98.1 99 20 106/71 99 Room Air 98.1 08/07/17 20:31 96.8 08/07/17 19:30 Room Air 21 08/07/17 19:30 95 Room Air 21 08/07/17 19:23 96.8 114 20 97/64 98 Room Air 96.8 08/07/17 16:00 98.1 100 18 106/61 97 Room Air 98.1 08/07/17 11:48 97.7 106 18 81/58 93 97.7 Height (Feet): 5 Height (Inches): 9.00 Weight (Pounds): 122 HEENT: anicteric Respiratory/Chest: normal breath sounds Cardiovascular: no gallop/murmur Abdomen: no organomegaly Current Medications Medications (Trade) Dose Ordered Sig/Kayy Route PRN Reason Start Time Stop Time Status Last Admin Dose Admin Acetaminophen (Tylenol) 650 mg Q6H PRN ORAL Mild Pain/Temp > 100.5 07/14/17 19:00 08/13/17 18:59 07/21/17 12:18 Acetaminophen/ Hydrocodone Bitart ([place] 5/325) 1 tab Q4H PRN ORAL Breakthru Pain btwn Dilaudid d 08/04/17 09:00 08/11/17 08:59 08/08/17 08:39 Calcium Carbonate (Tums) 1,000 mg Q4H PRN ORAL HEARTBURN/INDIGESTION 07/20/17 18:00 08/19/17 17:59 08/01/17 13:32 Dextrose (Dextrose 50%) 25 ml STAT PRN IV HYPOGLYCEMIA 08/08/17 09:45 09/07/17 09:44 Dextrose (Dextrose 50%) 50 ml STAT PRN IV Hypoglycemia 08/08/17 09:45 08/10/17 20:29 Diphenhydramine HCl (Benadryl) 25 mg Q6H PRN IVP Itching 07/25/17 17:00 08/24/17 16:59 08/08/17 09:39 Finasteride (Proscar) 5 mg DAILY ORAL 07/13/17 09:00 08/12/17 08:59 08/08/17 08:37 Fluconazole (Diflucan) 200 mg Q24H ORAL 08/01/17 16:00 08/10/17 15:59 08/07/17 17:22 Heparin Sodium (Porcine) (Heparin 5000 units/ml) 5,000 units EVERY 12 HOURS SUBQ 08/01/17 21:00 08/22/17 21:00 08/08/17 08:40 Hydromorphone HCl (Dilaudid) 2 mg Q4H PRN IVP PAIN 4-10 08/04/17 09:01 08/11/17 09:00 08/08/17 03:35 Lansoprazole (Prevacid) 30 mg DAILY ORAL 07/12/17 09:00 08/11/17 08:59 08/08/17 08:37 Linezolid (Zyvox) 600 mg EVERY 12 HOURS ORAL 08/04/17 21:00 08/10/17 20:59 08/08/17 08:37 Meropenem 1 gm/ Dextrose 110 ml @ 220 mls/hr Q8HR@0300,1100,1900 IVPB 07/31/17 19:00 08/10/17 18:59 08/08/17 02:33 Nitroglycerin (Ntg) 0.4 mg Q5MIN X 3 DOSES PRN SL Prn Chest Pain 07/11/17 20:32 08/09/17 20:31 Ondansetron HCl (Zofran) 4 mg Q6H PRN IVP Nausea & Vomiting 07/11/17 20:32 08/10/17 20:31 08/08/17 08:39 Potassium Chloride (K-Dur) 40 meq DAILY ORAL 07/20/17 09:00 08/19/17 08:59 08/08/17 09:08 Risperidone (RisperDAL) 4 mg BEDTIME ORAL 07/23/17 21:00 08/22/17 20:59 08/07/17 20:26 Temazepam (Restoril) 15 mg HSPRN PRN ORAL Insomnia 08/01/17 21:00 08/08/17 20:59 08/07/17 23:41 Rick Arvizu MD Aug 08, 2017 10:29
[2017-08-08 11:23] LABS: BASOPHILS % (AUTO) 1.1 % (0.0-2.0); EOSINOPHILS % (AUTO) 1.9 % (0.0-3.0); HEMATOCRIT 29.9 % (42.0-52.0); HEMOGLOBIN 10.2 G/DL (14.2-18.0); LYMPHOCYTES % (AUTO) 9.5 % (20.0-45.0); MEAN CORPUSCULAR VOLUME 87 FL (80-99); MONOCYTES % (AUTO) 5.7 % (1.0-10.0); NEUTROPHILS % (AUTO) 81.8 % (45.0-75.0); PLATELET COUNT 342 K/UL (150-450); RED BLOOD COUNT 3.42 M/UL (4.70-6.10); RED CELL DISTRIBUTION WIDTH 16.3 % (11.6-14.8); WHITE BLOOD COUNT 9.5 K/UL (4.8-10.8)
[2017-08-08 11:52] LABS: ALANINE AMINOTRANSFERASE 12 U/L (12-78); ALBUMIN 2.1 G/DL (3.4-5.0); ALBUMIN/GLOBULIN RATIO 0.4 (1.0-2.7); ALKALINE PHOSPHATASE 128 U/L (46-116); ANION GAP 4 mmol/L (5-15); ASPARTATE AMINO TRANSFERASE 14 U/L (15-37); BILIRUBIN,TOTAL 0.2 MG/DL (0.2-1.0); BLOOD UREA NITROGEN 16 mg/dL (7-18); CALCIUM 8.7 MG/DL (8.5-10.1); CARBON DIOXIDE 32 MMOL/L (21-32); CHLORIDE 92 MMOL/L (98-107); CREATININE 0.7 MG/DL (0.55-1.30); POTASSIUM 4.9 MMOL/L (3.5-5.1); SODIUM 128 MMOL/L (136-145)
--- NOTE | 2017-08-08 15:35 | Nephrology Progress Note ---
Assessment/Plan Problem List: (1) ARF (acute renal failure) (2) UTI (urinary tract infection) (3) Psychiatric disorder (4) Acute abdomen Assessment Status: Na lower WBCs wnl had multi abdominal drains acute renal failure- extended left colectomy due to perf transverse colostomy creation Plan Plan: 3% saline per charles, 07/20/17 Mag and K supplement as needed DC horan DC IV PT advance diet Post op ( OP 07/08/17) Horan- 2D echo normal Ej Fx Albumin bollous monitor renal parameters K and Phos and Mag supplement as needed Subjective ROS Limited/Unobtainable: No Constitutional: Reports: malaise Objective Objective Last 24 Hour Vital Signs Date Time Temp Pulse Resp B/P (MAP) Pulse Ox O2 Delivery O2 Flow Rate FiO2 08/08/17 13:10 98.1 08/08/17 12:40 98.1 08/08/17 09:38 98.1 08/08/17 08:39 98.1 08/08/17 08:00 97.9 114 20 118/74 96 97.9 08/08/17 03:46 98.1 108 20 102/66 95 Room Air 98.1 08/08/17 03:35 98.1 08/07/17 23:55 98.1 99 20 106/71 99 Room Air 98.1 08/07/17 20:31 96.8 08/07/17 19:30 Room Air 21 08/07/17 19:30 95 Room Air 21 08/07/17 19:23 96.8 114 20 97/64 98 Room Air 96.8 08/07/17 16:00 98.1 100 18 106/61 97 Room Air 98.1 Intake and Output 08/07/17 08/08/17 19:00 07:00 Intake Total 110 ml Output Total 50 ml Balance -50 ml 110 ml IV Total 110 ml Stool Total 50 ml # Voids 2 # Bowel Movements 2 Laboratory Tests 08/08/17 11:15: White Blood Count 9.5, Red Blood Count 3.42L, Hemoglobin 10.2L, Hematocrit 29.9L , Mean Corpuscular Volume 87, Mean Corpuscular Hemoglobin 29.7, Mean Corpuscular Hemoglobin Concent 34.0, Red Cell Distribution Width 16.3H, Platelet Count 342, Mean Platelet Volume 4.5L, Neutrophils (%) (Auto) 81.8H, Lymphocytes (%) (Auto) 9.5L, Monocytes (%) (Auto) 5.7, Eosinophils (%) (Auto) 1.9, Basophils (%) (Auto) 1.1, Sodium Level 128L, Potassium Level 4.9, Chloride Level 92L, Carbon Dioxide Level 32, Anion Gap 4L, Blood Urea Nitrogen 16, Creatinine 0.7, Estimat Glomerular Filtration Rate > 60, Glucose Level 88, Calcium Level 8.7, Total Bilirubin 0.2, Aspartate Amino Transf (AST/SGOT) 14L, Alanine Aminotransferase (ALT/SGPT) 12, Alkaline Phosphatase 128H, Total Protein 7.3, Albumin 2.1L, Globulin 5.2, Albumin/Globulin Ratio 0.4L Height (Feet): 5 Height (Inches): 9.00 Weight (Pounds): 122 General Appearance: no apparent distress Cardiovascular: tachycardia Respiratory/Chest: decreased breath sounds Abdomen: soft Objective no other change NOEMY MARK Aug 08, 2017 15:35
[2017-08-08 16:00] VITALS: BP 100/63
[2017-08-08] MEDS ORDERED: NaCl 3% 500ml 500 ML IV ONE (16:30)
--- NOTE | 2017-08-08 16:31 | General Progress Note ---
Progress Note Progress Note Surgery: no acute events. doing well. labs mildly off. midline wound much smaller and very clean. healing well! nutrition improving. good ostomy function. -okay to d/c from surgical standpoint Gilberto Michelle Aug 08, 2017 16:31
[2017-08-08] MEDS: Fluconazole 100mg tab ORAL SCH (16:48)
[2017-08-08 19:51] VITALS: BP 109/75
--- NOTE | 2017-08-08 20:11 | Pulmonology Progress Note ---
Assessment/Plan Problems: (1) Perforated abdominal viscus (2) ARF (acute renal failure) (3) Psychosis (4) Acute constipation (5) Amphetamine abuse Assessment/Plan symptomatic treamtment f/u wbc and clinically d/w surgeon iv fluids continue abx, as recommended by ID pain management med/surg check electrolytes Subjective ROS Limited/Unobtainable: No Allergies: Coded Allergies: No Known Allergies (Unverified , 01/20/17) Objective Last 24 Hour Vital Signs Date Time Temp Pulse Resp B/P (MAP) Pulse Ox O2 Delivery O2 Flow Rate FiO2 08/08/17 19:51 97.6 104 18 109/75 97 97.6 08/08/17 18:35 97.5 08/08/17 18:05 97.5 08/08/17 16:00 97.5 87 18 100/63 98 97.5 08/08/17 12:40 98.1 08/08/17 09:38 98.1 08/08/17 08:39 98.1 08/08/17 08:00 97.9 114 20 118/74 96 97.9 08/08/17 03:46 98.1 108 20 102/66 95 Room Air 98.1 08/08/17 03:35 98.1 08/07/17 23:55 98.1 99 20 106/71 99 Room Air 98.1 08/07/17 20:31 96.8 Intake and Output 08/07/17 08/08/17 19:00 07:00 Intake Total 110 ml Output Total 50 ml Balance -50 ml 110 ml IV Total 110 ml Stool Total 50 ml # Voids 2 # Bowel Movements 2 Objective General Appearance: WD/WN Lines, tubes and drains: peripheral HEENT: normocephalic, atraumatic Neck: non-tender, normal alignment Respiratory/Chest: chest wall non-tender, lungs clear Breasts: no masses Cardiovascular/Chest: normal peripheral pulses, normal rate Abdomen: normal bowel sounds, clean dressing Genitourinary/Rectal: normal genital exam, heme negative stool Extremities: normal range of motion, non-tender Skin Exam: normal pigmentation Laboratory Tests 08/08/17 11:15: White Blood Count 9.5, Red Blood Count 3.42L, Hemoglobin 10.2L, Hematocrit 29.9L , Mean Corpuscular Volume 87, Mean Corpuscular Hemoglobin 29.7, Mean Corpuscular Hemoglobin Concent 34.0, Red Cell Distribution Width 16.3H, Platelet Count 342, Mean Platelet Volume 4.5L, Neutrophils (%) (Auto) 81.8H, Lymphocytes (%) (Auto) 9.5L, Monocytes (%) (Auto) 5.7, Eosinophils (%) (Auto) 1.9, Basophils (%) (Auto) 1.1, Sodium Level 128L, Potassium Level 4.9, Chloride Level 92L, Carbon Dioxide Level 32, Anion Gap 4L, Blood Urea Nitrogen 16, Creatinine 0.7, Estimat Glomerular Filtration Rate > 60, Glucose Level 88, Calcium Level 8.7, Total Bilirubin 0.2, Aspartate Amino Transf (AST/SGOT) 14L, Alanine Aminotransferase (ALT/SGPT) 12, Alkaline Phosphatase 128H, Total Protein 7.3, Albumin 2.1L, Globulin 5.2, Albumin/Globulin Ratio 0.4L Current Medications Medications (Trade) Dose Ordered Sig/Kayy Route PRN Reason Start Time Stop Time Status Last Admin Dose Admin Acetaminophen (Tylenol) 650 mg Q6H PRN ORAL Mild Pain/Temp > 100.5 07/14/17 19:00 08/13/17 18:59 07/21/17 12:18 Acetaminophen/ Hydrocodone Bitart ([place] 5/325) 1 tab Q4H PRN ORAL Breakthru Pain btwn Dilaudid d 08/04/17 09:00 08/11/17 08:59 08/08/17 08:39 Dextrose (Dextrose 50%) 25 ml STAT PRN IV HYPOGLYCEMIA 08/08/17 09:45 09/07/17 09:44 Dextrose (Dextrose 50%) 50 ml STAT PRN IV Hypoglycemia 08/08/17 09:45 08/10/17 20:29 Diphenhydramine HCl (Benadryl) 25 mg Q6H PRN IVP Itching 07/25/17 17:00 08/24/17 16:59 08/08/17 09:39 Famotidine (Pepcid) 40 mg QHS ORAL 08/08/17 21:00 09/07/17 20:59 Finasteride (Proscar) 5 mg DAILY ORAL 07/13/17 09:00 08/12/17 08:59 08/08/17 08:37 Fluconazole (Diflucan) 200 mg Q24H ORAL 08/01/17 16:00 08/10/17 15:59 08/08/17 16:48 Heparin Sodium (Porcine) (Heparin 5000 units/ml) 5,000 units EVERY 12 HOURS SUBQ 08/01/17 21:00 08/22/17 21:00 08/08/17 08:40 Hydromorphone HCl (Dilaudid) 2 mg Q4H PRN IVP PAIN 4-10 08/04/17 09:01 08/11/17 09:00 08/08/17 18:05 Lansoprazole (Prevacid) 30 mg DAILY ORAL 07/12/17 09:00 08/11/17 08:59 08/08/17 08:37 Linezolid (Zyvox) 600 mg EVERY 12 HOURS ORAL 08/04/17 21:00 08/10/17 20:59 08/08/17 08:37 Meropenem 1 gm/ Dextrose 110 ml @ 220 mls/hr Q8HR@0300,1100,1900 IVPB 07/31/17 19:00 08/10/17 18:59 08/08/17 16:52 Nitroglycerin (Ntg) 0.4 mg Q5MIN X 3 DOSES PRN SL Prn Chest Pain 07/11/17 20:32 08/09/17 20:31 Ondansetron HCl (Zofran) 4 mg Q6H PRN IVP Nausea & Vomiting 07/11/17 20:32 08/10/17 20:31 08/08/17 08:39 Potassium Chloride (K-Dur) 40 meq DAILY ORAL 07/20/17 09:00 08/19/17 08:59 08/08/17 09:08 Risperidone (RisperDAL) 4 mg BEDTIME ORAL 07/23/17 21:00 08/22/17 20:59 08/07/17 20:26 Sodium Chloride 500 ml @ 30 mls/hr ONCE ONCE IV 08/08/17 16:30 08/09/17 09:09 08/08/17 16:51 Temazepam (Restoril) 15 mg HSPRN PRN ORAL Insomnia 08/01/17 21:00 08/08/17 20:59 08/07/17 23:41 Brenda Martel MD Aug 08, 2017 20:11
[2017-08-08] MEDS ORDERED: Tubing IV Secondary IV ONE (20:18)
[2017-08-08] MEDS ORDERED: NS 500ML ONE (20:18)
--- NOTE | 2017-08-08 23:34 | General Progress Note ---
Assessment/Plan Assessment/Plan 1. Anemia, likely due to chronic disease. --> No occult blood. H/H stable at this time --> Anemia workup reviewed. --> Iron 24, TIBC 173, Ferritin 513, B12 424, Folate 9.5, TSH 4.2 --> Blood transfusion not required unless symptomatic or hgb below 7 2. Leukocytosis. --> Wbc count downtrended from yesterday and resolved at this time. 3. Perforation of viscus and pneumoperitoneum, currently improving. --> Continue to closely monitor. Peripheral smear reviewed as well. 4. Rhabdomyolysis, currently improved with administration of IV fluids. 5. Hypoalbuminemia, likely secondary to decreased p.o. intake, monitor malnutrition. 6. Pneumoperitoneum. 7. Chronic constipation. 8. Schizophrenia, paranoid type. 9. Smoker. 10. Amphetamine use. Subjective Date patient seen: Aug 07, 2017 Constitutional: Denies: no symptoms, chills, diaphoresis, fever, malaise, weakness, other HEENT: Denies: no symptoms, eye pain, blurred vision, tearing, double vision, ear pain, ear discharge, nose pain, nose congestion, throat pain, throat swelling, mouth pain, mouth swelling, other Cardiovascular: Denies: no symptoms, chest pain, edema, irregular heart rate, lightheadedness, palpitations, syncope, other Respiratory: Denies: no symptoms, cough, orthopnea, shortness of breath, SOB with excertion, SOB at rest, sputum, stridor, wheezing, other Gastrointestinal/Abdominal: Denies: no symptoms, abdomen distended, abdominal pain, black stools, tarry stools, blood in stool, constipated, diarrhea, difficulty swallowing, nausea, poor appetite, poor fluid intake, rectal bleeding , vomiting, other Genitourinary: Denies: no symptoms, burning, discharge, frequency, flank pain, hematuria, incontinence, pain, urgency, other Neurologic/Psychiatric: Denies: no symptoms, anxiety, depressed, emotional problems, headache, numbness, paresthesia, pre-existing deficit, seizure, tingling, tremors, weakness, other Hematologic/Lymphatic: Reports: anemia Allergies: Coded Allergies: No Known Allergies (Unverified , 01/20/17) Subjective No acute events. No hematochezia. H/H stable. Objective Last 24 Hour Vital Signs Date Time Temp Pulse Resp B/P (MAP) Pulse Ox O2 Delivery O2 Flow Rate FiO2 08/08/17 22:54 97.6 08/08/17 22:24 97.6 08/08/17 19:51 97.6 104 18 109/75 97 97.6 08/08/17 18:05 97.5 08/08/17 16:00 97.5 87 18 100/63 98 97.5 08/08/17 12:40 98.1 08/08/17 09:38 98.1 08/08/17 08:39 98.1 08/08/17 08:00 97.9 114 20 118/74 96 97.9 08/08/17 03:46 98.1 108 20 102/66 95 Room Air 98.1 08/08/17 03:35 98.1 08/07/17 23:55 98.1 99 20 106/71 99 Room Air 98.1 Intake and Output 08/07/17 08/08/17 19:00 07:00 Intake Total 110 ml Output Total 50 ml Balance -50 ml 110 ml IV Total 110 ml Stool Total 50 ml # Voids 2 # Bowel Movements 2 Laboratory Tests 08/08/17 11:15: White Blood Count 9.5, Red Blood Count 3.42L, Hemoglobin 10.2L, Hematocrit 29.9L , Mean Corpuscular Volume 87, Mean Corpuscular Hemoglobin 29.7, Mean Corpuscular Hemoglobin Concent 34.0, Red Cell Distribution Width 16.3H, Platelet Count 342, Mean Platelet Volume 4.5L, Neutrophils (%) (Auto) 81.8H, Lymphocytes (%) (Auto) 9.5L, Monocytes (%) (Auto) 5.7, Eosinophils (%) (Auto) 1.9, Basophils (%) (Auto) 1.1, Sodium Level 128L, Potassium Level 4.9, Chloride Level 92L, Carbon Dioxide Level 32, Anion Gap 4L, Blood Urea Nitrogen 16, Creatinine 0.7, Estimat Glomerular Filtration Rate > 60, Glucose Level 88, Calcium Level 8.7, Total Bilirubin 0.2, Aspartate Amino Transf (AST/SGOT) 14L, Alanine Aminotransferase (ALT/SGPT) 12, Alkaline Phosphatase 128H, Total Protein 7.3, Albumin 2.1L, Globulin 5.2, Albumin/Globulin Ratio 0.4L Height (Feet): 5 Height (Inches): 9.00 Weight (Pounds): 122 General Appearance: no apparent distress EENT: normal ENT inspection Cardiovascular: normal rate Respiratory/Chest: lungs clear Abdomen: soft Tashi Brown MD Aug 08, 2017 23:34
[2017-08-08 23:38] VITALS: BP 103/74
[2017-08-09] MEDS: Meropenem 1 GM in D5W 110 ML IVPB SCH ×3 (03:33→18:00)
[2017-08-09 03:59] VITALS: BP 105/73
[2017-08-09 08:00] VITALS: BP 100/65
[2017-08-09] MEDS: DiphenhydrAMINE 50mg/ml Inj IVP PRN ×2 (08:37→17:31)
[2017-08-09] MEDS: Heparin 5000 units/ml inj SUBQ SCH ×2 (08:48→21:58)
[2017-08-09 09:03] LABS: ALANINE AMINOTRANSFERASE 8 U/L (12-78); ALBUMIN 2.1 G/DL (3.4-5.0); ALBUMIN/GLOBULIN RATIO 0.4 (1.0-2.7); ALKALINE PHOSPHATASE 121 U/L (46-116); ANION GAP 4 mmol/L (5-15); ASPARTATE AMINO TRANSFERASE 16 U/L (15-37); BILIRUBIN,TOTAL 0.2 MG/DL (0.2-1.0); BLOOD UREA NITROGEN 14 mg/dL (7-18); CALCIUM 8.7 MG/DL (8.5-10.1); CARBON DIOXIDE 32 MMOL/L (21-32); CHLORIDE 93 MMOL/L (98-107); CREATININE 0.6 MG/DL (0.55-1.30); PHOSPHORUS 3.5 MG/DL (2.5-4.9); POTASSIUM 4.4 MMOL/L (3.5-5.1); SODIUM 129 MMOL/L (136-145)
--- NOTE | 2017-08-09 10:34 | General Progress Note ---
Assessment/Plan Problem List: (1) COPD (chronic obstructive pulmonary disease) ICD Codes: J44.9 - Chronic obstructive pulmonary disease, unspecified SNOMED: 21698366 (2) Constipation ICD Codes: K59.00 - Constipation, unspecified SNOMED: 78203881 (3) Opiate dependence ICD Codes: F11.20 - Opioid dependence, uncomplicated SNOMED: 53452724 Qualifiers: Qualified Codes: F11.20 - Opioid dependence, uncomplicated (4) Amphetamine abuse ICD Codes: F15.10 - Other stimulant abuse, uncomplicated SNOMED: 09580890 (5) Perforated abdominal viscus SNOMED: 241035712 Assessment/Plan on reg diet s/p surg in this admission pain control fu labs pending possible dc Subjective ROS Limited/Unobtainable: Yes Allergies: Coded Allergies: No Known Allergies (Unverified , 01/20/17) Subjective eating well no event last bm today Objective Last 24 Hour Vital Signs Date Time Temp Pulse Resp B/P (MAP) Pulse Ox O2 Delivery O2 Flow Rate FiO2 08/09/17 08:18 98.0 08/09/17 08:00 96.5 109 20 100/65 95 96.5 08/09/17 07:48 98.0 08/09/17 03:59 98.0 95 18 105/73 95 98.0 08/09/17 03:34 97.6 08/08/17 23:38 97.6 104 18 103/74 96 97.6 08/08/17 22:24 97.6 08/08/17 19:51 97.6 104 18 109/75 97 97.6 08/08/17 18:05 97.5 08/08/17 16:00 97.5 87 18 100/63 98 97.5 08/08/17 12:40 98.1 Intake and Output 08/08/17 08/09/17 19:00 07:00 Intake Total 1000 ml 585 ml Output Total 500 ml Balance 500 ml 585 ml Intake Oral 1000 ml 475 ml IV Total 110 ml Stool Total 500 ml # Voids 3 # Bowel Movements 3 Laboratory Tests 08/08/17 11:15: White Blood Count 9.5, Red Blood Count 3.42L, Hemoglobin 10.2L, Hematocrit 29.9L , Mean Corpuscular Volume 87, Mean Corpuscular Hemoglobin 29.7, Mean Corpuscular Hemoglobin Concent 34.0, Red Cell Distribution Width 16.3H, Platelet Count 342, Mean Platelet Volume 4.5L, Neutrophils (%) (Auto) 81.8H, Lymphocytes (%) (Auto) 9.5L, Monocytes (%) (Auto) 5.7, Eosinophils (%) (Auto) 1.9, Basophils (%) (Auto) 1.1, Sodium Level 128L, Potassium Level 4.9, Chloride Level 92L, Carbon Dioxide Level 32, Anion Gap 4L, Blood Urea Nitrogen 16, Creatinine 0.7, Estimat Glomerular Filtration Rate > 60, Glucose Level 88, Calcium Level 8.7, Total Bilirubin 0.2, Aspartate Amino Transf (AST/SGOT) 14L, Alanine Aminotransferase (ALT/SGPT) 12, Alkaline Phosphatase 128H, Total Protein 7.3, Albumin 2.1L, Globulin 5.2, Albumin/Globulin Ratio 0.4L 08/09/17 06:40: Sodium Level 129L, Potassium Level 4.4, Chloride Level 93L, Carbon Dioxide Level 32, Anion Gap 4L, Blood Urea Nitrogen 14, Creatinine 0.6, Estimat Glomerular Filtration Rate > 60, Glucose Level 86, Calcium Level 8.7, Total Bilirubin 0.2, Aspartate Amino Transf (AST/SGOT) 16, Alanine Aminotransferase ( ALT/SGPT) 8L, Alkaline Phosphatase 121H, Total Protein 7.1, Albumin 2.1L, Globulin 5.0, Albumin/Globulin Ratio 0.4L, Uric Acid 3.0, Phosphorus Level 3.5, Magnesium Level 1.7L Height (Feet): 5 Height (Inches): 9.00 Weight (Pounds): 126 General Appearance: no apparent distress EENT: normal ENT inspection Neck: supple Cardiovascular: normal rate Respiratory/Chest: decreased breath sounds Abdomen: normal bowel sounds, non tender, soft Extremities: non-tender APOLONIA ANTONY Aug 09, 2017 10:34
[2017-08-09 12:00] VITALS: BP 99/67
--- NOTE | 2017-08-09 12:19 | General Surgery Progress Note ---
General Surgery-Progress Note Subjective Procedure Performed exploratory laparotomy, abdominal washout, evacuation of abscess, drain placement and abdominal closure Symptoms: improved, tolerating diet, voiding well Objective Last 24 Hour Vital Signs Date Time Temp Pulse Resp B/P (MAP) Pulse Ox O2 Delivery O2 Flow Rate FiO2 08/09/17 12:08 98.0 08/09/17 08:18 98.0 08/09/17 08:00 96.5 109 20 100/65 95 96.5 08/09/17 07:48 98.0 08/09/17 03:59 98.0 95 18 105/73 95 98.0 08/09/17 03:34 97.6 08/08/17 23:38 97.6 104 18 103/74 96 97.6 08/08/17 22:24 97.6 08/08/17 19:51 97.6 104 18 109/75 97 97.6 08/08/17 18:05 97.5 08/08/17 16:00 97.5 87 18 100/63 98 97.5 08/08/17 12:40 98.1 I&O Intake and Output 08/08/17 08/09/17 19:00 07:00 Intake Total 1000 ml 585 ml Output Total 500 ml Balance 500 ml 585 ml Intake Oral 1000 ml 475 ml IV Total 110 ml Stool Total 500 ml # Voids 3 # Bowel Movements 3 Wound: clean Drains: none Cardiovascular: RSR Respiratory: clear Abdomen: soft, flat, non-tender, present bowel sounds Extremities: no tenderness Laboratory Tests Test 08/09/17 06:40 Sodium Level 129 MMOL/L (136-145) L Potassium Level 4.4 MMOL/L (3.5-5.1) Chloride Level 93 MMOL/L (98-107) L Carbon Dioxide Level 32 MMOL/L (21-32) Anion Gap 4 mmol/L (5-15) L Blood Urea Nitrogen 14 mg/dL (7-18) Creatinine 0.6 MG/DL (0.55-1.30) Estimat Glomerular Filtration Rate > 60 mL/min (>60) Glucose Level 86 MG/DL (74-106) Uric Acid 3.0 MG/DL (2.6-7.2) Calcium Level 8.7 MG/DL (8.5-10.1) Phosphorus Level 3.5 MG/DL (2.5-4.9) Magnesium Level 1.7 MG/DL (1.8-2.4) L Total Bilirubin 0.2 MG/DL (0.2-1.0) Aspartate Amino Transf (AST/SGOT) 16 U/L (15-37) Alanine Aminotransferase (ALT/SGPT) 8 U/L (12-78) L Alkaline Phosphatase 121 U/L (46-116) H Total Protein 7.1 G/DL (6.4-8.2) Albumin 2.1 G/DL (3.4-5.0) L Globulin 5.0 g/dL Albumin/Globulin Ratio 0.4 (1.0-2.7) L Assessment Post-op Diagnosis abdominal dehiscence, intraabdominal abscess Plan Problems: (1) Perforated abdominal viscus Assessment & Plan: perforated abdominal viscus as noted on CT. exam with peritonitis generalized but with focus in LLQ. history of psych illness but currently AAOx4 and cooperative with exam. poor historian. possible drug seeking behavior. s/p Ex lap with abdominal washout, left colectomy and creation of transverse colostomy. Noted to have larger perforation in sigmoid likely stercoarl given operative findings. large left perisplenic abscess evacuated. drains placed. post operatively improved but after a few days noted to have purulent drainage out of left upper quadrant drain. CT demonstrated reaccumulation of large complex abscess despite extensive washout on initial operation. IR drain placed and pus evacuated but could not resolve complex collection. micro with multiorganism. midline wound dehiscence. decision made for re-exploration with washout, drains, and midline closure. s/p re-exploration with washout, drains, and midline closure on 07/20. large complex abscess noted, evacuated, washout, drains placed. midline fascia closed. doing well. recovering. improved pain afebrile, HD stable, labs reviewed. All surgical drains removed now. upon removal minimal serous output. exam benign. Repeat CT noted. no abscess noted. liver fluid collections do not look like abscess and are likely subcapsular trauma from surgery. leukocytosis resolved. -cont IV Abx. appreciate ID input. -midline wound packing and dressings TID -at this point he looks much better and is improving. labs okay. abdomen benign. wound clean. ostomy functional. d/c planning to SNF for IV ABX and recovery. will need to have midline dressing changes for a few weeks until ready for either primary closure or skin graft. okay to d/c from surgical standpoint to SNF with IV Abx. Gilberto Michelle Aug 09, 2017 12:19
--- NOTE | 2017-08-09 13:15 | Infectious Diseases Prog Note ---
Assessment/Plan Assessment/Plan ASSESSMENT: The patient is a 46-year-old male with; Bowel perf w/ development of 2 Abscess (subphrenic and pelvic) Cx: E coli( ESBL) and ENTEROCOCCUS AVIUM (turcios S) and Bact Fragilis - s/p I+D x2- now almost complete resolution of abscess -CT abd/p w/ 08/02: Mostly resolved left upper quadrant and right upper quadrant fluid collections, post surgical evacuation. Minimal residual fluid as described. Appearance of the residual fluid is nonspecific as regards whether or not infected. Other postsurgical changes, as described, including the minimal residual pneumoperitoneum, surgical drain removal. 2 new fluid collections within the liver, could represent small hepatic abscesses versus noninfected acquired fluid collections, possibly related to surgical trauma. Dilated proximal small bowel, gradually narrowing to normal caliber more distally. No evidence of obstruction, as ingested contrast is seen to traverse the entirety of the GI tract. Small splenic hilar, gastric varices. This, in combination with mesenteric congestion, could indicate portal hypertension. However, no morphologic changes of the liver to suggest cirrhosis are evident. Moderate right pleural effusion, slightly decreased in size from the previous study. Trace left pleural effusion, significantly decreased in size from the previous study. Gas within the bladder. Probably related to recent instrumentation. If there is no history of recent Dickens catheterization, however , the possibility of emphysematous cystitis should be considered -s/p exploratory laparotomy, abdominal washout, evacuation of abscess, drain placement and abdominal closure 07/20; cx not received in the lab -s/p CT guided drainage APOLLO fluid collection 07/19: Aspiration and drainage of left upper quadrant collection, yielding 150 mL of carin pus. Note that the collection could only be partially evacuated, however, despite confirmation of apparent adequate position of the drain.This may indicate high viscosity of the contents; cx E. fecalis (turcios S), PREVOTELLA LOESCHEII (Aumgentin, Clinda R; Metronidazole S) s/p ex lap with left colectomy and transverse colostomy for perforated left colon, evacuation of intrabd abscess, abd washout w/ drain placement 07/09 -CT abd/p w/ 07/18: Postsurgical changes, as described, status post transverse colectomy, Jazz procedure, and placement of multiple surgical drains. Left upper quadrant intraperitoneal fluid collection, despite the presence of a surgical drain in the center of the collection. The presence of gas bubbles within rather than floating nondependently in the collection indicate that this fluid may be viscous. 2 other significant intraperitoneal collections,which do not appear to communicate, possibly loculated. Given presence of somewhat thick enhancing rim surrounding all of these, infected collections are certainly possible ( left paracolic gutter 5.8 cmx 4.3 cm x 8.3cm and R paracolic gutter, medial and inferior to tip R hepatic lobe 8cm x 6.4cm x8cm). Other than the gas within the left upper quadrant collection, previously demonstrated pneumoperitoneum has largely resolved. Left upper quadrant thick walled small bowel loops. Possibly reactive due to adjacent inflammation, enteritis is also possible. No evidence of bowel obstruction. Gallbladder wall edema versus pericholecystic fluid. -OR findings: The omentum was significantly thickened and adhesed to the small bowel and into the left lower quadrant. There was significant inflammatory process throughout the abdomen including a thickening of almost the entire peritoneal lining. The proximal portion of the jejunum was significantly thickened and had a rind of inflammatory infectious tissue on it. left transverse and descending colon, there was significant amount of thickening and significant disease process with some areas of mild ischemia noted and in the descending colon around the descending and sigmoid junction, there was a gross perforation with grossspillage of bowel contents noted in the area. there was a fluid collection/pelvic abscess, which was evacuated. There was a fluid collection in the right upper quadrant around the liver, which was evacuated and a large left upper quadrant subphrenic abscess with significant tissue rind and thickening around the stomach, spleen, peritoneum, and diaphragm in that location. CT : Evidence of perforation of hollow viscus with extensive amount of free air in the upper abdomen and some free fluid is well. Fever, SP Leukocytosis SP -07/31 Cdiff neg -07/15 Bcx Neg ?PNA, SP Rx -CXR 07/31: Improved left basilar consolidation, since 07/15/2017. Some residual atelectasis and possibly minimal residual consolidation. Decreased but persistent pleural fluid on the left. Resolved right mid and lower lung consolidation. Some residual perihilar atelectasis. New or increased small right pleural effusion. Left upper quadrant surgical drain Elevated ALP , improved -Abd US: Negative for gallstones. There is borderline gallbladder wall thickening, however. Most likely, this is reactive secondary to surrounding inflammation related to recent bowel perforation and surgery for such. However, the possibility of acalculous acute cholecystitis should be considered, and consideration for nuclear medicine hepatobiliary scanning if there is high clinical suspicion history of diarrhea, SP RAMSEY: Improved HTN COPD/asthma. Smoker. History of chronic constipation. Osteoarthritis. ? CAD/NH, hx PLAN: -Continue IV Meropenem abx d#30 , Fluconazole # 20, Linezolid #17 until 08/10/17 ; ok to discharge on this regimen -weekly CBC/CMP --08/02 SP IV ampicillin #17 --07/21 Zosyn #4 --07/18 SP Ertapenem, PO Amoxicillin #3 --07/16 SP Cefepime #2 --07/12 SP Zosyn d# 6 --SP Rocephin d# 5 -surgery following midline wound closure needed -wound care -Trend WBC Subjective Constitutional: Denies: no symptoms, fever, chills, fatigue, anorexia, drenching sweats, other Allergies: Coded Allergies: No Known Allergies (Unverified , 01/20/17) Subjective afebrile Objective Vital Signs Last 24 Hour Vital Signs Date Time Temp Pulse Resp B/P (MAP) Pulse Ox O2 Delivery O2 Flow Rate FiO2 08/09/17 12:38 98.0 08/09/17 12:08 98.0 08/09/17 12:00 96.9 97 20 99/67 97 96.9 08/09/17 08:00 96.5 109 20 100/65 95 96.5 08/09/17 07:48 98.0 08/09/17 03:59 98.0 95 18 105/73 95 98.0 08/09/17 03:34 97.6 08/08/17 23:38 97.6 104 18 103/74 96 97.6 08/08/17 22:24 97.6 08/08/17 19:51 97.6 104 18 109/75 97 97.6 08/08/17 18:05 97.5 08/08/17 16:00 97.5 87 18 100/63 98 97.5 Height (Feet): 5 Height (Inches): 9.00 Weight (Pounds): 126 HEENT: anicteric Respiratory/Chest: normal breath sounds Cardiovascular: regularly irregular Abdomen: no organomegaly Laboratory Tests Test 08/09/17 06:40 Sodium Level 129 MMOL/L (136-145) L Potassium Level 4.4 MMOL/L (3.5-5.1) Chloride Level 93 MMOL/L (98-107) L Carbon Dioxide Level 32 MMOL/L (21-32) Anion Gap 4 mmol/L (5-15) L Blood Urea Nitrogen 14 mg/dL (7-18) Creatinine 0.6 MG/DL (0.55-1.30) Estimat Glomerular Filtration Rate > 60 mL/min (>60) Glucose Level 86 MG/DL (74-106) Uric Acid 3.0 MG/DL (2.6-7.2) Calcium Level 8.7 MG/DL (8.5-10.1) Phosphorus Level 3.5 MG/DL (2.5-4.9) Magnesium Level 1.7 MG/DL (1.8-2.4) L Total Bilirubin 0.2 MG/DL (0.2-1.0) Aspartate Amino Transf (AST/SGOT) 16 U/L (15-37) Alanine Aminotransferase (ALT/SGPT) 8 U/L (12-78) L Alkaline Phosphatase 121 U/L (46-116) H Total Protein 7.1 G/DL (6.4-8.2) Albumin 2.1 G/DL (3.4-5.0) L Globulin 5.0 g/dL Albumin/Globulin Ratio 0.4 (1.0-2.7) L Current Medications Medications (Trade) Dose Ordered Sig/Kayy Route PRN Reason Start Time Stop Time Status Last Admin Dose Admin Acetaminophen (Tylenol) 650 mg Q6H PRN ORAL Mild Pain/Temp > 100.5 07/14/17 19:00 08/13/17 18:59 07/21/17 12:18 Acetaminophen/ Hydrocodone Bitart ([place] 5/325) 1 tab Q4H PRN ORAL Breakthru Pain btwn Dilaudid d 08/04/17 09:00 08/11/17 08:59 08/08/17 08:39 Dextrose (Dextrose 50%) 25 ml STAT PRN IV HYPOGLYCEMIA 08/08/17 09:45 09/07/17 09:44 Dextrose (Dextrose 50%) 50 ml STAT PRN IV Hypoglycemia 08/08/17 09:45 08/10/17 20:29 Diphenhydramine HCl (Benadryl) 25 mg Q6H PRN IVP Itching 07/25/17 17:00 08/24/17 16:59 08/09/17 08:37 Docusate Sodium (Colace) 100 mg TWICE A DAY ORAL 08/09/17 18:00 09/08/17 17:59 Famotidine (Pepcid) 40 mg QHS ORAL 08/08/17 21:00 09/07/17 20:59 08/08/17 21:22 Finasteride (Proscar) 5 mg DAILY ORAL 07/13/17 09:00 08/12/17 08:59 08/09/17 08:36 Fluconazole (Diflucan) 200 mg Q24H ORAL 08/01/17 16:00 08/10/17 15:59 08/08/17 16:48 Heparin Sodium (Porcine) (Heparin 5000 units/ml) 5,000 units EVERY 12 HOURS SUBQ 08/01/17 21:00 08/22/17 21:00 08/09/17 08:48 Hydromorphone HCl (Dilaudid) 2 mg Q4H PRN IVP PAIN 4-10 08/04/17 09:01 08/11/17 09:00 08/09/17 12:08 Lansoprazole (Prevacid) 30 mg DAILY ORAL 07/12/17 09:00 08/11/17 08:59 08/09/17 08:36 Linezolid (Zyvox) 600 mg EVERY 12 HOURS ORAL 08/04/17 21:00 08/10/17 20:59 08/09/17 08:36 Meropenem 1 gm/ Dextrose 110 ml @ 220 mls/hr Q8HR@0300,1100,1900 IVPB 07/31/17 19:00 08/10/17 18:59 08/09/17 12:08 Nitroglycerin (Ntg) 0.4 mg Q5MIN X 3 DOSES PRN SL Prn Chest Pain 07/11/17 20:32 08/09/17 20:31 Ondansetron HCl (Zofran) 4 mg Q6H PRN IVP Nausea & Vomiting 07/11/17 20:32 08/10/17 20:31 08/09/17 12:08 Potassium Chloride (K-Dur) 40 meq DAILY ORAL 07/20/17 09:00 08/19/17 08:59 08/09/17 08:36 Risperidone (RisperDAL) 4 mg BEDTIME ORAL 07/23/17 21:00 08/22/17 20:59 08/08/17 21:23 Rick Arvizu MD Aug 09, 2017 13:15
--- NOTE | 2017-08-09 15:27 | Nephrology Progress Note ---
Assessment/Plan Problem List: (1) ARF (acute renal failure) (2) UTI (urinary tract infection) (3) Psychiatric disorder (4) Acute abdomen Assessment Status: Na lower WBCs wnl had multi abdominal drains acute renal failure- extended left colectomy due to perf transverse colostomy creation Plan Plan: low Na work up intitiated per charles, 07/20/17 Mag and K supplement as needed Post op ( OP 07/08/17) Dickens- 2D echo normal Ej Fx Albumin bollous monitor renal parameters K and Phos and Mag supplement as needed Subjective ROS Limited/Unobtainable: No Objective Objective Last 24 Hour Vital Signs Date Time Temp Pulse Resp B/P (MAP) Pulse Ox O2 Delivery O2 Flow Rate FiO2 08/09/17 12:38 98.0 08/09/17 12:08 98.0 08/09/17 12:00 96.9 97 20 99/67 97 96.9 08/09/17 08:00 96.5 109 20 100/65 95 96.5 08/09/17 07:48 98.0 08/09/17 03:59 98.0 95 18 105/73 95 98.0 08/09/17 03:34 97.6 08/08/17 23:38 97.6 104 18 103/74 96 97.6 08/08/17 22:24 97.6 08/08/17 19:51 97.6 104 18 109/75 97 97.6 08/08/17 18:05 97.5 08/08/17 16:00 97.5 87 18 100/63 98 97.5 Intake and Output 08/08/17 08/09/17 19:00 07:00 Intake Total 1000 ml 585 ml Output Total 500 ml Balance 500 ml 585 ml Intake Oral 1000 ml 475 ml IV Total 110 ml Stool Total 500 ml # Voids 3 # Bowel Movements 3 Laboratory Tests 08/09/17 06:40: Sodium Level 129L, Potassium Level 4.4, Chloride Level 93L, Carbon Dioxide Level 32, Anion Gap 4L, Blood Urea Nitrogen 14, Creatinine 0.6, Estimat Glomerular Filtration Rate > 60, Glucose Level 86, Uric Acid 3.0, Calcium Level 8.7, Phosphorus Level 3.5, Magnesium Level 1.7L, Total Bilirubin 0.2, Aspartate Amino Transf (AST/SGOT) 16, Alanine Aminotransferase (ALT/SGPT) 8L, Alkaline Phosphatase 121H, Total Protein 7.1, Albumin 2.1L, Globulin 5.0, Albumin/ Globulin Ratio 0.4L Height (Feet): 5 Height (Inches): 9.00 Weight (Pounds): 126 General Appearance: no apparent distress Objective no other change NOEMY MARK Aug 09, 2017 15:27
[2017-08-09 15:50] VITALS: BP 115/65
[2017-08-09] MEDS: Fluconazole 100mg tab ORAL SCH (16:26)
[2017-08-09] MEDS: Docusate 100mg cap ORAL SCH (17:00)
[2017-08-09 20:00] VITALS: BP 117/79
--- NOTE | 2017-08-09 23:14 | General Progress Note ---
Assessment/Plan Assessment/Plan Schizophrenia CPT Encephalopathy PLAN: - increase the risperidone to 4 mg at bedtime. Subjective Allergies: Coded Allergies: No Known Allergies (Unverified , 01/20/17) Subjective the pt is calmer more organized. meds seeking Objective Last 24 Hour Vital Signs Date Time Temp Pulse Resp B/P (MAP) Pulse Ox O2 Delivery O2 Flow Rate FiO2 08/09/17 20:41 97.9 08/09/17 20:00 97.9 103 17 117/79 98 97.9 08/09/17 16:57 97.3 08/09/17 16:27 97.3 08/09/17 15:50 97.3 96 20 115/65 97 97.3 08/09/17 12:08 98.0 08/09/17 12:00 96.9 97 20 99/67 97 96.9 08/09/17 08:00 96.5 109 20 100/65 95 96.5 08/09/17 07:48 98.0 08/09/17 03:59 98.0 95 18 105/73 95 98.0 08/09/17 03:34 97.6 08/08/17 23:38 97.6 104 18 103/74 96 97.6 Intake and Output 08/08/17 08/09/17 19:00 07:00 Intake Total 1000 ml 585 ml Output Total 500 ml Balance 500 ml 585 ml Intake Oral 1000 ml 475 ml IV Total 110 ml Stool Total 500 ml # Voids 3 # Bowel Movements 3 Laboratory Tests 08/09/17 06:40: Sodium Level 129L, Potassium Level 4.4, Chloride Level 93L, Carbon Dioxide Level 32, Anion Gap 4L, Blood Urea Nitrogen 14, Creatinine 0.6, Estimat Glomerular Filtration Rate > 60, Glucose Level 86, Uric Acid 3.0, Calcium Level 8.7, Phosphorus Level 3.5, Magnesium Level 1.7L, Total Bilirubin 0.2, Aspartate Amino Transf (AST/SGOT) 16, Alanine Aminotransferase (ALT/SGPT) 8L, Alkaline Phosphatase 121H, Total Protein 7.1, Albumin 2.1L, Globulin 5.0, Albumin/ Globulin Ratio 0.4L 08/09/17 16:30: Urine Osmolality 716H, Urine Random Sodium 144H Height (Feet): 5 Height (Inches): 9.00 Weight (Pounds): 126 Farhadi,Pantea M.D. Aug 09, 2017 23:14
[2017-08-10] VITALS: BP 111/71
--- NOTE | 2017-08-10 00:28 | General Progress Note ---
Assessment/Plan Assessment/Plan 1. Anemia, likely due to chronic disease. --> No occult blood. H/H stable at this time --> Anemia workup reviewed. --> Iron 24, TIBC 173, Ferritin 513, B12 424, Folate 9.5, TSH 4.2 --> Has not required blood transfusion 2. Leukocytosis. --> Wbc count downtrended from yesterday and resolved at this time. 3. Perforation of viscus and pneumoperitoneum, currently improving. --> Continue to closely monitor. Peripheral smear reviewed as well. 4. Rhabdomyolysis, currently improved with administration of IV fluids. 5. Hypoalbuminemia, likely secondary to decreased p.o. intake, monitor malnutrition. 6. Pneumoperitoneum. 7. Chronic constipation. 8. Schizophrenia, paranoid type. 9. Smoker. 10. Amphetamine use. Subjective Date patient seen: Aug 08, 2017 Constitutional: Denies: no symptoms, chills, diaphoresis, fever, malaise, weakness, other HEENT: Denies: no symptoms, eye pain, blurred vision, tearing, double vision, ear pain, ear discharge, nose pain, nose congestion, throat pain, throat swelling, mouth pain, mouth swelling, other Cardiovascular: Denies: no symptoms, chest pain, edema, irregular heart rate, lightheadedness, palpitations, syncope, other Respiratory: Denies: no symptoms, cough, orthopnea, shortness of breath, SOB with excertion, SOB at rest, sputum, stridor, wheezing, other Gastrointestinal/Abdominal: Denies: no symptoms, abdomen distended, abdominal pain, black stools, tarry stools, blood in stool, constipated, diarrhea, difficulty swallowing, nausea, poor appetite, poor fluid intake, rectal bleeding , vomiting, other Genitourinary: Denies: no symptoms, burning, discharge, frequency, flank pain, hematuria, incontinence, pain, urgency, other Neurologic/Psychiatric: Denies: no symptoms, anxiety, depressed, emotional problems, headache, numbness, paresthesia, pre-existing deficit, seizure, tingling, tremors, weakness, other Hematologic/Lymphatic: Reports: anemia Allergies: Coded Allergies: No Known Allergies (Unverified , 01/20/17) Subjective No new events overnight. No fever or chills. Objective Last 24 Hour Vital Signs Date Time Temp Pulse Resp B/P (MAP) Pulse Ox O2 Delivery O2 Flow Rate FiO2 08/09/17 21:11 97.9 08/09/17 20:41 97.9 08/09/17 20:00 97.9 103 17 117/79 98 97.9 08/09/17 16:27 97.3 08/09/17 15:50 97.3 96 20 115/65 97 97.3 08/09/17 12:08 98.0 08/09/17 12:00 96.9 97 20 99/67 97 96.9 08/09/17 08:00 96.5 109 20 100/65 95 96.5 08/09/17 07:48 98.0 08/09/17 03:59 98.0 95 18 105/73 95 98.0 08/09/17 03:34 97.6 Intake and Output 08/09/17 08/10/17 19:00 07:00 Intake Total 1130 ml Balance 1130 ml Intake Oral 910 ml IV Total 220 ml # Voids 2 Laboratory Tests 08/09/17 06:40: Sodium Level 129L, Potassium Level 4.4, Chloride Level 93L, Carbon Dioxide Level 32, Anion Gap 4L, Blood Urea Nitrogen 14, Creatinine 0.6, Estimat Glomerular Filtration Rate > 60, Glucose Level 86, Uric Acid 3.0, Calcium Level 8.7, Phosphorus Level 3.5, Magnesium Level 1.7L, Total Bilirubin 0.2, Aspartate Amino Transf (AST/SGOT) 16, Alanine Aminotransferase (ALT/SGPT) 8L, Alkaline Phosphatase 121H, Total Protein 7.1, Albumin 2.1L, Globulin 5.0, Albumin/ Globulin Ratio 0.4L 08/09/17 16:30: Urine Osmolality 716H, Urine Random Sodium 144H Height (Feet): 5 Height (Inches): 9.00 Weight (Pounds): 126 General Appearance: no apparent distress Respiratory/Chest: decreased breath sounds Abdomen: soft Tashi Brown MD Aug 10, 2017 00:28
[2017-08-10] MEDS: Meropenem 1 GM in D5W 110 ML IVPB SCH ×2 (03:04→11:41)
[2017-08-10] MEDS: Norco 5mg/325mg tab ORAL PRN (06:46)
[2017-08-10 08:00] VITALS: BP 105/69
[2017-08-10] MEDS: Docusate 100mg cap ORAL SCH ×2 (09:09→18:00)
[2017-08-10] MEDS: DiphenhydrAMINE 50mg/ml Inj IVP PRN (09:09)
[2017-08-10] MEDS: Heparin 5000 units/ml inj SUBQ SCH ×2 (09:14→20:55)
[2017-08-10 10:00] LABS: ALANINE AMINOTRANSFERASE 11 U/L (12-78); ALBUMIN 2.2 G/DL (3.4-5.0); ALBUMIN/GLOBULIN RATIO 0.5 (1.0-2.7); ALKALINE PHOSPHATASE 127 U/L (46-116); ANION GAP 4 mmol/L (5-15); ASPARTATE AMINO TRANSFERASE 15 U/L (15-37); BILIRUBIN,TOTAL 0.2 MG/DL (0.2-1.0); BLOOD UREA NITROGEN 14 mg/dL (7-18); CALCIUM 8.6 MG/DL (8.5-10.1); CARBON DIOXIDE 32 MMOL/L (21-32); CHLORIDE 92 MMOL/L (98-107); CREATININE 0.7 MG/DL (0.55-1.30); PHOSPHORUS 3.5 MG/DL (2.5-4.9); POTASSIUM 4.3 MMOL/L (3.5-5.1); SODIUM 128 MMOL/L (136-145)
[2017-08-10 11:50] VITALS: BP 102/62
[2017-08-10 15:37] VITALS: BP 112/74
--- NOTE | 2017-08-10 16:06 | Nephrology Progress Note ---
Assessment/Plan Problem List: (1) ARF (acute renal failure) (2) UTI (urinary tract infection) (3) Psychiatric disorder (4) Acute abdomen Assessment Status: Na lower WBCs wnl had multi abdominal drains acute renal failure- extended left colectomy due to perf transverse colostomy creation Plan Plan: low Na work up intitiated likely SIADH PO Fluid Restriction 3% Saline with IV Lasix per charles, 07/20/17 Mag and K supplement as needed Post op ( OP 07/08/17) Dickens- 2D echo normal Ej Fx Albumin bollous monitor renal parameters K and Phos and Mag supplement as needed Subjective ROS Limited/Unobtainable: No Constitutional: Reports: malaise Objective Objective Last 24 Hour Vital Signs Date Time Temp Pulse Resp B/P (MAP) Pulse Ox O2 Delivery O2 Flow Rate FiO2 08/10/17 16:00 96.8 08/10/17 15:37 96.8 110 20 112/74 100 96.8 08/10/17 11:50 97.5 96 20 102/62 100 97.5 08/10/17 10:33 97.8 08/10/17 10:03 97.8 08/10/17 08:00 97.8 99 19 105/69 100 97.8 08/10/17 07:45 97.9 08/10/17 06:46 97.9 08/10/17 00:59 97.9 08/10/17 00:00 97.9 101 18 111/71 97.9 08/09/17 20:41 97.9 08/09/17 20:00 97.9 103 17 117/79 98 97.9 08/09/17 16:27 97.3 Intake and Output 08/09/17 08/10/17 19:00 07:00 Intake Total 1130 ml 380 ml Output Total 600 ml Balance 1130 ml -220 ml Intake Oral 910 ml 270 ml IV Total 220 ml 110 ml Stool Total 600 ml # Voids 2 2 Laboratory Tests 08/09/17 16:30: Urine Osmolality 716H, Urine Random Sodium 144H 08/10/17 08:10: Sodium Level 128L, Potassium Level 4.3, Chloride Level 92L, Carbon Dioxide Level 32, Anion Gap 4L, Blood Urea Nitrogen 14, Creatinine 0.7, Estimat Glomerular Filtration Rate > 60, Glucose Level 134H, Osmolality 276L, Uric Acid 2.6, Calcium Level 8.6, Phosphorus Level 3.5, Magnesium Level 1.7L, Total Bilirubin 0.2, Aspartate Amino Transf (AST/SGOT) 15, Alanine Aminotransferase ( ALT/SGPT) 11L, Alkaline Phosphatase 127H, Total Protein 7.0, Albumin 2.2L, Globulin 4.8, Albumin/Globulin Ratio 0.5L, Thyroid Stimulating Hormone (TSH) 2.734 Height (Feet): 5 Height (Inches): 9.00 Weight (Pounds): 127 General Appearance: no apparent distress Cardiovascular: tachycardia Respiratory/Chest: decreased breath sounds Abdomen: distended Objective no other change NOEMY MARK Aug 10, 2017 16:06
[2017-08-10] MEDS ORDERED: NaCl 3% 500ml 500 ML IV ONE (17:00)
--- NOTE | 2017-08-10 17:44 | Pulmonology Progress Note ---
Assessment/Plan Problems: (1) Perforated abdominal viscus (2) ARF (acute renal failure) (3) Psychosis (4) Acute constipation (5) Amphetamine abuse Assessment/Plan symptomatic treamtment f/u wbc and clinically d/w surgeon iv fluids continue abx, as recommended by ID pain management med/surg check electrolytes Subjective ROS Limited/Unobtainable: No Constitutional: Reports: no symptoms HEENT: Repors: no symptoms Allergies: Coded Allergies: No Known Allergies (Unverified , 01/20/17) Objective Last 24 Hour Vital Signs Date Time Temp Pulse Resp B/P (MAP) Pulse Ox O2 Delivery O2 Flow Rate FiO2 08/10/17 16:30 96.8 08/10/17 16:00 96.8 08/10/17 15:37 96.8 110 20 112/74 100 96.8 08/10/17 11:50 97.5 96 20 102/62 100 97.5 08/10/17 10:03 97.8 08/10/17 08:00 97.8 99 19 105/69 100 97.8 08/10/17 07:45 97.9 08/10/17 06:46 97.9 08/10/17 00:59 97.9 08/10/17 00:00 97.9 101 18 111/71 97.9 08/09/17 20:41 97.9 08/09/17 20:00 97.9 103 17 117/79 98 97.9 Intake and Output 08/09/17 08/10/17 19:00 07:00 Intake Total 1130 ml 380 ml Output Total 600 ml Balance 1130 ml -220 ml Intake Oral 910 ml 270 ml IV Total 220 ml 110 ml Stool Total 600 ml # Voids 2 2 Objective General Appearance: WD/WN Lines, tubes and drains: peripheral HEENT: normocephalic, atraumatic Neck: non-tender, normal alignment Respiratory/Chest: chest wall non-tender, lungs clear Breasts: no masses Cardiovascular/Chest: normal peripheral pulses, normal rate Abdomen: normal bowel sounds, clean dressing Genitourinary/Rectal: normal genital exam, heme negative stool Extremities: normal range of motion, non-tender Skin Exam: normal pigmentation Laboratory Tests 08/10/17 08:10: Sodium Level 128L, Potassium Level 4.3, Chloride Level 92L, Carbon Dioxide Level 32, Anion Gap 4L, Blood Urea Nitrogen 14, Creatinine 0.7, Estimat Glomerular Filtration Rate > 60, Glucose Level 134H, Osmolality 276L, Uric Acid 2.6, Calcium Level 8.6, Phosphorus Level 3.5, Magnesium Level 1.7L, Total Bilirubin 0.2, Aspartate Amino Transf (AST/SGOT) 15, Alanine Aminotransferase ( ALT/SGPT) 11L, Alkaline Phosphatase 127H, Total Protein 7.0, Albumin 2.2L, Globulin 4.8, Albumin/Globulin Ratio 0.5L, Thyroid Stimulating Hormone (TSH) 2.734 Current Medications Medications (Trade) Dose Ordered Sig/Kayy Route PRN Reason Start Time Stop Time Status Last Admin Dose Admin Acetaminophen (Tylenol) 650 mg Q6H PRN ORAL Mild Pain/Temp > 100.5 07/14/17 19:00 08/13/17 18:59 07/21/17 12:18 Acetaminophen/ Hydrocodone Bitart ([place] 5/325) 1 tab Q4H PRN ORAL Breakthru Pain btwn Dilaudid d 08/04/17 09:00 08/11/17 08:59 08/10/17 06:46 Dextrose (Dextrose 50%) 25 ml STAT PRN IV HYPOGLYCEMIA 08/08/17 09:45 09/07/17 09:44 Dextrose (Dextrose 50%) 50 ml STAT PRN IV Hypoglycemia 08/08/17 09:45 08/10/17 20:29 Diphenhydramine HCl (Benadryl) 25 mg Q6H PRN IVP Itching 07/25/17 17:00 08/24/17 16:59 08/10/17 09:09 Docusate Sodium (Colace) 100 mg TWICE A DAY ORAL 08/09/17 18:00 09/08/17 17:59 08/10/17 09:09 Famotidine (Pepcid) 40 mg QHS ORAL 08/08/17 21:00 09/07/17 20:59 08/09/17 20:45 Finasteride (Proscar) 5 mg DAILY ORAL 07/13/17 09:00 08/12/17 08:59 08/10/17 09:09 Furosemide (Lasix) 10 mg EVERY 6 HOURS IV 08/10/17 18:00 09/09/17 17:59 Heparin Sodium (Porcine) (Heparin 5000 units/ml) 5,000 units EVERY 12 HOURS SUBQ 08/01/17 21:00 08/22/17 21:00 08/10/17 09:14 Hydromorphone HCl (Dilaudid) 2 mg Q4H PRN IVP PAIN 4-10 08/04/17 09:01 08/11/17 09:00 08/10/17 16:00 Lansoprazole (Prevacid) 30 mg DAILY ORAL 07/12/17 09:00 08/11/17 08:59 08/10/17 09:09 Linezolid (Zyvox) 600 mg EVERY 12 HOURS ORAL 08/04/17 21:00 08/10/17 20:59 08/10/17 09:09 Meropenem 1 gm/ Dextrose 110 ml @ 220 mls/hr Q8HR@0300,1100,1900 IVPB 07/31/17 19:00 08/10/17 18:59 08/10/17 11:41 Ondansetron HCl (Zofran) 4 mg Q6H PRN IVP Nausea & Vomiting 07/11/17 20:32 08/10/17 20:31 08/10/17 01:07 Potassium Chloride (K-Dur) 40 meq DAILY ORAL 07/20/17 09:00 08/19/17 08:59 08/10/17 09:10 Risperidone (RisperDAL) 4 mg BEDTIME ORAL 07/23/17 21:00 08/22/17 20:59 08/09/17 20:46 Sodium Chloride 500 ml @ 30 mls/hr ONCE ONCE IV 08/10/17 17:00 08/11/17 09:39 Brenda Martel MD Aug 10, 2017 17:44
--- NOTE | 2017-08-10 18:24 | Infectious Diseases Prog Note ---
Assessment/Plan Assessment/Plan ASSESSMENT: The patient is a 46-year-old male with; Bowel perf w/ development of 2 Abscess (subphrenic and pelvic) Cx: E coli( ESBL) and ENTEROCOCCUS AVIUM (turcios S) and Bact Fragilis - s/p I+D x2- now almost complete resolution of abscess -CT abd/p w/ 08/02: Mostly resolved left upper quadrant and right upper quadrant fluid collections, post surgical evacuation. Minimal residual fluid as described. Appearance of the residual fluid is nonspecific as regards whether or not infected. Other postsurgical changes, as described, including the minimal residual pneumoperitoneum, surgical drain removal. 2 new fluid collections within the liver, could represent small hepatic abscesses versus noninfected acquired fluid collections, possibly related to surgical trauma. Dilated proximal small bowel, gradually narrowing to normal caliber more distally. No evidence of obstruction, as ingested contrast is seen to traverse the entirety of the GI tract. Small splenic hilar, gastric varices. This, in combination with mesenteric congestion, could indicate portal hypertension. However, no morphologic changes of the liver to suggest cirrhosis are evident. Moderate right pleural effusion, slightly decreased in size from the previous study. Trace left pleural effusion, significantly decreased in size from the previous study. Gas within the bladder. Probably related to recent instrumentation. If there is no history of recent Dickens catheterization, however , the possibility of emphysematous cystitis should be considered -s/p exploratory laparotomy, abdominal washout, evacuation of abscess, drain placement and abdominal closure 07/20; cx not received in the lab -s/p CT guided drainage APOLLO fluid collection 07/19: Aspiration and drainage of left upper quadrant collection, yielding 150 mL of carin pus. Note that the collection could only be partially evacuated, however, despite confirmation of apparent adequate position of the drain.This may indicate high viscosity of the contents; cx E. fecalis (turcios S), PREVOTELLA LOESCHEII ([place]umgentin, Clinda R; Metronidazole S) s/p ex lap with left colectomy and transverse colostomy for perforated left colon, evacuation of intrabd abscess, abd washout w/ drain placement 07/09 -CT abd/p w/ 07/18: Postsurgical changes, as described, status post transverse colectomy, Jazz procedure, and placement of multiple surgical drains. Left upper quadrant intraperitoneal fluid collection, despite the presence of a surgical drain in the center of the collection. The presence of gas bubbles within rather than floating nondependently in the collection indicate that this fluid may be viscous. 2 other significant intraperitoneal collections,which do not appear to communicate, possibly loculated. Given presence of somewhat thick enhancing rim surrounding all of these, infected collections are certainly possible ( left paracolic gutter 5.8 cmx 4.3 cm x 8.3cm and R paracolic gutter, medial and inferior to tip R hepatic lobe 8cm x 6.4cm x8cm). Other than the gas within the left upper quadrant collection, previously demonstrated pneumoperitoneum has largely resolved. Left upper quadrant thick walled small bowel loops. Possibly reactive due to adjacent inflammation, enteritis is also possible. No evidence of bowel obstruction. Gallbladder wall edema versus pericholecystic fluid. -OR findings: The omentum was significantly thickened and adhesed to the small bowel and into the left lower quadrant. There was significant inflammatory process throughout the abdomen including a thickening of almost the entire peritoneal lining. The proximal portion of the jejunum was significantly thickened and had a rind of inflammatory infectious tissue on it. left transverse and descending colon, there was significant amount of thickening and significant disease process with some areas of mild ischemia noted and in the descending colon around the descending and sigmoid junction, there was a gross perforation with grossspillage of bowel contents noted in the area. there was a fluid collection/pelvic abscess, which was evacuated. There was a fluid collection in the right upper quadrant around the liver, which was evacuated and a large left upper quadrant subphrenic abscess with significant tissue rind and thickening around the stomach, spleen, peritoneum, and diaphragm in that location. CT : Evidence of perforation of hollow viscus with extensive amount of free air in the upper abdomen and some free fluid is well. Fever, SP Leukocytosis SP -07/31 Cdiff neg -07/15 Bcx Neg ?PNA, SP Rx -CXR 07/31: Improved left basilar consolidation, since 07/15/2017. Some residual atelectasis and possibly minimal residual consolidation. Decreased but persistent pleural fluid on the left. Resolved right mid and lower lung consolidation. Some residual perihilar atelectasis. New or increased small right pleural effusion. Left upper quadrant surgical drain Elevated ALP , improved -Abd US: Negative for gallstones. There is borderline gallbladder wall thickening, however. Most likely, this is reactive secondary to surrounding inflammation related to recent bowel perforation and surgery for such. However, the possibility of acalculous acute cholecystitis should be considered, and consideration for nuclear medicine hepatobiliary scanning if there is high clinical suspicion history of diarrhea, SP RAMSEY: Improved HTN COPD/asthma. Smoker. History of chronic constipation. Osteoarthritis. ? CAD/AL, hx PLAN: - DC IV Meropenem abx d#31 , Fluconazole # 21, Linezolid #18 , monitor pt off of AB Rx -weekly CBC/CMP --08/02 SP IV ampicillin #17 --07/21 Zosyn #4 --07/18 SP Ertapenem, PO Amoxicillin #3 --07/16 SP Cefepime #2 --07/12 SP Zosyn d# 6 --SP Rocephin d# 5 -surgery following midline wound closure needed -wound care -Trend WBC Subjective Allergies: Coded Allergies: No Known Allergies (Unverified , 01/20/17) Subjective afebrile Objective Vital Signs Last 24 Hour Vital Signs Date Time Temp Pulse Resp B/P (MAP) Pulse Ox O2 Delivery O2 Flow Rate FiO2 08/10/17 16:30 96.8 08/10/17 16:00 96.8 08/10/17 15:37 96.8 110 20 112/74 100 96.8 08/10/17 11:50 97.5 96 20 102/62 100 97.5 08/10/17 10:03 97.8 08/10/17 08:00 97.8 99 19 105/69 100 97.8 08/10/17 07:45 97.9 08/10/17 06:46 97.9 08/10/17 00:59 97.9 08/10/17 00:00 97.9 101 18 111/71 97.9 08/09/17 20:41 97.9 08/09/17 20:00 97.9 103 17 117/79 98 97.9 Height (Feet): 5 Height (Inches): 9.00 Weight (Pounds): 127 HEENT: anicteric Respiratory/Chest: no respiratory distress Cardiovascular: regular rhythm Abdomen: non distended Laboratory Tests Test 08/10/17 08:10 Sodium Level 128 MMOL/L (136-145) L Potassium Level 4.3 MMOL/L (3.5-5.1) Chloride Level 92 MMOL/L (98-107) L Carbon Dioxide Level 32 MMOL/L (21-32) Anion Gap 4 mmol/L (5-15) L Blood Urea Nitrogen 14 mg/dL (7-18) Creatinine 0.7 MG/DL (0.55-1.30) Estimat Glomerular Filtration Rate > 60 mL/min (>60) Glucose Level 134 MG/DL (74-106) H Osmolality 276 mOsm/kg (297-317) L Uric Acid 2.6 MG/DL (2.6-7.2) Calcium Level 8.6 MG/DL (8.5-10.1) Phosphorus Level 3.5 MG/DL (2.5-4.9) Magnesium Level 1.7 MG/DL (1.8-2.4) L Total Bilirubin 0.2 MG/DL (0.2-1.0) Aspartate Amino Transf (AST/SGOT) 15 U/L (15-37) Alanine Aminotransferase (ALT/SGPT) 11 U/L (12-78) L Alkaline Phosphatase 127 U/L (46-116) H Total Protein 7.0 G/DL (6.4-8.2) Albumin 2.2 G/DL (3.4-5.0) L Globulin 4.8 g/dL Albumin/Globulin Ratio 0.5 (1.0-2.7) L Thyroid Stimulating Hormone (TSH) 2.734 uiU/mL (0.358-3.740) Current Medications Medications (Trade) Dose Ordered Sig/Kayy Route PRN Reason Start Time Stop Time Status Last Admin Dose Admin Acetaminophen (Tylenol) 650 mg Q6H PRN ORAL Mild Pain/Temp > 100.5 07/14/17 19:00 08/13/17 18:59 07/21/17 12:18 Acetaminophen/ Hydrocodone Bitart ([place] 5/325) 1 tab Q4H PRN ORAL Breakthru Pain btwn Dilaudid d 08/04/17 09:00 08/11/17 08:59 08/10/17 06:46 Dextrose (Dextrose 50%) 25 ml STAT PRN IV HYPOGLYCEMIA 08/08/17 09:45 09/07/17 09:44 Dextrose (Dextrose 50%) 50 ml STAT PRN IV Hypoglycemia 08/08/17 09:45 08/10/17 20:29 Diphenhydramine HCl (Benadryl) 25 mg Q6H PRN IVP Itching 07/25/17 17:00 08/24/17 16:59 08/10/17 09:09 Docusate Sodium (Colace) 100 mg TWICE A DAY ORAL 08/09/17 18:00 09/08/17 17:59 08/10/17 09:09 Famotidine (Pepcid) 40 mg QHS ORAL 08/08/17 21:00 09/07/17 20:59 08/09/17 20:45 Finasteride (Proscar) 5 mg DAILY ORAL 07/13/17 09:00 08/12/17 08:59 08/10/17 09:09 Furosemide (Lasix) 10 mg EVERY 6 HOURS IV 08/10/17 18:00 09/09/17 17:59 08/10/17 18:12 Heparin Sodium (Porcine) (Heparin 5000 units/ml) 5,000 units EVERY 12 HOURS SUBQ 08/01/17 21:00 08/22/17 21:00 08/10/17 09:14 Hydromorphone HCl (Dilaudid) 2 mg Q4H PRN IVP PAIN 4-10 08/04/17 09:01 08/11/17 09:00 08/10/17 16:00 Lansoprazole (Prevacid) 30 mg DAILY ORAL 07/12/17 09:00 08/11/17 08:59 08/10/17 09:09 Linezolid (Zyvox) 600 mg EVERY 12 HOURS ORAL 08/04/17 21:00 08/10/17 20:59 08/10/17 09:09 Meropenem 1 gm/ Dextrose 110 ml @ 220 mls/hr Q8HR@0300,1100,1900 IVPB 07/31/17 19:00 08/10/17 18:59 08/10/17 11:41 Ondansetron HCl (Zofran) 4 mg Q6H PRN IVP Nausea & Vomiting 07/11/17 20:32 08/10/17 20:31 08/10/17 01:07 Potassium Chloride (K-Dur) 40 meq DAILY ORAL 07/20/17 09:00 08/19/17 08:59 08/10/17 09:10 Risperidone (RisperDAL) 4 mg BEDTIME ORAL 07/23/17 21:00 08/22/17 20:59 08/09/17 20:46 Sodium Chloride 500 ml @ 30 mls/hr ONCE ONCE IV 08/10/17 17:00 08/11/17 09:39 08/10/17 18:00 Rick Arvizu MD Aug 10, 2017 18:24
--- NOTE | 2017-08-10 18:54 | General Progress Note ---
Assessment/Plan Assessment/Plan Schizophrenia CPT Encephalopathy PLAN: - increase the risperidone to 4 mg at bedtime. Subjective Date patient seen: Aug 10, 2017 Neurologic/Psychiatric: Reports: anxiety, depressed, emotional problems Allergies: Coded Allergies: No Known Allergies (Unverified , 01/20/17) Subjective the pt is calmer more organized. meds seeking Objective Last 24 Hour Vital Signs Date Time Temp Pulse Resp B/P (MAP) Pulse Ox O2 Delivery O2 Flow Rate FiO2 08/10/17 16:30 96.8 08/10/17 16:00 96.8 08/10/17 15:37 96.8 110 20 112/74 100 96.8 08/10/17 11:50 97.5 96 20 102/62 100 97.5 08/10/17 10:03 97.8 08/10/17 08:00 97.8 99 19 105/69 100 97.8 08/10/17 07:45 97.9 08/10/17 06:46 97.9 08/10/17 00:59 97.9 08/10/17 00:00 97.9 101 18 111/71 97.9 08/09/17 20:41 97.9 08/09/17 20:00 97.9 103 17 117/79 98 97.9 Intake and Output 08/09/17 08/10/17 19:00 07:00 Intake Total 1130 ml 380 ml Output Total 600 ml Balance 1130 ml -220 ml Intake Oral 910 ml 270 ml IV Total 220 ml 110 ml Stool Total 600 ml # Voids 2 2 Laboratory Tests 08/10/17 08:10: Sodium Level 128L, Potassium Level 4.3, Chloride Level 92L, Carbon Dioxide Level 32, Anion Gap 4L, Blood Urea Nitrogen 14, Creatinine 0.7, Estimat Glomerular Filtration Rate > 60, Glucose Level 134H, Osmolality 276L, Uric Acid 2.6, Calcium Level 8.6, Phosphorus Level 3.5, Magnesium Level 1.7L, Total Bilirubin 0.2, Aspartate Amino Transf (AST/SGOT) 15, Alanine Aminotransferase ( ALT/SGPT) 11L, Alkaline Phosphatase 127H, Total Protein 7.0, Albumin 2.2L, Globulin 4.8, Albumin/Globulin Ratio 0.5L, Thyroid Stimulating Hormone (TSH) 2.734 Height (Feet): 5 Height (Inches): 9.00 Weight (Pounds): 127 Idalia Montanez M.D. Aug 10, 2017 18:54
[2017-08-10 20:00] VITALS: BP 108/69
--- NOTE | 2017-08-11 02:29 | General Progress Note ---
Assessment/Plan Assessment/Plan 1. Anemia, likely due to chronic disease. --> No occult blood. H/H stable at this time --> Anemia workup reviewed. --> Iron 24, TIBC 173, Ferritin 513, B12 424, Folate 9.5, TSH 4.2 --> Does not need blood transfusion unless symptomatic or hgb <7 2. Leukocytosis. --> Wbc count downtrended from yesterday and resolved at this time. 3. Perforation of viscus and pneumoperitoneum, currently improving. --> Continue to closely monitor. Peripheral smear reviewed as well. 4. Rhabdomyolysis, currently improved with administration of IV fluids. 5. Hypoalbuminemia, likely secondary to decreased p.o. intake, monitor malnutrition. 6. Pneumoperitoneum. 7. Chronic constipation. 8. Schizophrenia, paranoid type. 9. Smoker. 10. Amphetamine use. Subjective Date patient seen: Aug 09, 2017 Constitutional: Denies: no symptoms, chills, diaphoresis, fever, malaise, weakness, other HEENT: Denies: no symptoms, eye pain, blurred vision, tearing, double vision, ear pain, ear discharge, nose pain, nose congestion, throat pain, throat swelling, mouth pain, mouth swelling, other Cardiovascular: Denies: no symptoms, chest pain, edema, irregular heart rate, lightheadedness, palpitations, syncope, other Respiratory: Denies: no symptoms, cough, orthopnea, shortness of breath, SOB with excertion, SOB at rest, sputum, stridor, wheezing, other Gastrointestinal/Abdominal: Denies: no symptoms, abdomen distended, abdominal pain, black stools, tarry stools, blood in stool, constipated, diarrhea, difficulty swallowing, nausea, poor appetite, poor fluid intake, rectal bleeding , vomiting, other Genitourinary: Denies: no symptoms, burning, discharge, frequency, flank pain, hematuria, incontinence, pain, urgency, other Neurologic/Psychiatric: Denies: no symptoms, anxiety, depressed, emotional problems, headache, numbness, paresthesia, pre-existing deficit, seizure, tingling, tremors, weakness, other Hematologic/Lymphatic: Reports: anemia Allergies: Coded Allergies: No Known Allergies (Unverified , 01/20/17) Subjective No night sweats. H/H stable. Objective Last 24 Hour Vital Signs Date Time Temp Pulse Resp B/P (MAP) Pulse Ox O2 Delivery O2 Flow Rate FiO2 08/11/17 02:10 96.4 08/10/17 20:48 96.4 08/10/17 20:00 96.4 96 17 108/69 98 96.4 08/10/17 16:00 96.8 08/10/17 15:37 96.8 110 20 112/74 100 96.8 08/10/17 11:50 97.5 96 20 102/62 100 97.5 08/10/17 10:03 97.8 08/10/17 08:00 97.8 99 19 105/69 100 97.8 08/10/17 07:45 97.9 08/10/17 06:46 97.9 Intake and Output 08/10/17 08/11/17 19:00 07:00 Intake Total 850 ml Balance 850 ml Intake Oral 850 ml # Voids 4 Laboratory Tests 08/10/17 08:10: Sodium Level 128L, Potassium Level 4.3, Chloride Level 92L, Carbon Dioxide Level 32, Anion Gap 4L, Blood Urea Nitrogen 14, Creatinine 0.7, Estimat Glomerular Filtration Rate > 60, Glucose Level 134H, Osmolality 276L, Uric Acid 2.6, Calcium Level 8.6, Phosphorus Level 3.5, Magnesium Level 1.7L, Total Bilirubin 0.2, Aspartate Amino Transf (AST/SGOT) 15, Alanine Aminotransferase ( ALT/SGPT) 11L, Alkaline Phosphatase 127H, Total Protein 7.0, Albumin 2.2L, Globulin 4.8, Albumin/Globulin Ratio 0.5L, Thyroid Stimulating Hormone (TSH) 2.734 Height (Feet): 5 Height (Inches): 9.00 Weight (Pounds): 127 General Appearance: no apparent distress EENT: normal ENT inspection Cardiovascular: tachycardia Tashi Brown MD Aug 11, 2017 02:29
[2017-08-11 04:00] VITALS: BP 108/73
[2017-08-11] MEDS: Norco 5mg/325mg tab ORAL PRN ×4 (04:50→23:13)
[2017-08-11 07:33] LABS: ALANINE AMINOTRANSFERASE 11 U/L (12-78); ALBUMIN 2.3 G/DL (3.4-5.0); ALBUMIN/GLOBULIN RATIO 0.5 (1.0-2.7); ALKALINE PHOSPHATASE 137 U/L (46-116); ANION GAP 4 mmol/L (5-15); ASPARTATE AMINO TRANSFERASE 19 U/L (15-37); BILIRUBIN,TOTAL 0.3 MG/DL (0.2-1.0); BLOOD UREA NITROGEN 13 mg/dL (7-18); CALCIUM 8.8 MG/DL (8.5-10.1); CARBON DIOXIDE 33 MMOL/L (21-32); CHLORIDE 95 MMOL/L (98-107); CREATININE 0.7 MG/DL (0.55-1.30); PHOSPHORUS 4.2 MG/DL (2.5-4.9); POTASSIUM 4.4 MMOL/L (3.5-5.1); SODIUM 132 MMOL/L (136-145)
[2017-08-11 08:17] VITALS: BP 101/70
[2017-08-11] MEDS: Docusate 100mg cap ORAL SCH ×2 (09:00→17:24)
[2017-08-11] MEDS: Heparin 5000 units/ml inj SUBQ SCH ×2 (10:00→20:43)
--- NOTE | 2017-08-11 11:28 | Nephrology Progress Note ---
Assessment/Plan Problem List: (1) ARF (acute renal failure) (2) UTI (urinary tract infection) (3) Psychiatric disorder (4) Acute abdomen Assessment Status: Na lower WBCs wnl had multi abdominal drains acute renal failure- extended left colectomy due to perf transverse colostomy creation Plan Plan: low Na ... improving...work up intitiated .....likely SIADH PO Fluid Restriction 3% Saline with IV Lasix per charles, 07/20/17 Mag and K supplement as needed Post op ( OP 07/08/17) Dickens- 2D echo normal Ej Fx Albumin bollous monitor renal parameters K and Phos and Mag supplement as needed Subjective ROS Limited/Unobtainable: No Constitutional: Reports: malaise Objective Objective Last 24 Hour Vital Signs Date Time Temp Pulse Resp B/P (MAP) Pulse Ox O2 Delivery O2 Flow Rate FiO2 08/11/17 11:01 98.2 08/11/17 10:31 98.2 08/11/17 08:17 98.2 110 20 101/70 95 98.2 08/11/17 04:00 97.0 92 18 108/73 95 97.0 08/11/17 02:10 96.4 08/10/17 20:48 96.4 08/10/17 20:00 96.4 96 17 108/69 98 96.4 08/10/17 16:00 96.8 08/10/17 15:37 96.8 110 20 112/74 100 96.8 08/10/17 11:50 97.5 96 20 102/62 100 97.5 Intake and Output 08/10/17 08/11/17 19:00 07:00 Intake Total 880 ml 1900 ml Output Total 1500 ml Balance 880 ml 400 ml Intake Oral 850 ml 1600 ml IV Total 30 ml 300 ml Output Urine Total 1500 ml # Voids 4 Laboratory Tests 08/11/17 05:40: Sodium Level 132L, Potassium Level 4.4, Chloride Level 95L, Carbon Dioxide Level 33H, Anion Gap 4L, Blood Urea Nitrogen 13, Creatinine 0.7, Estimat Glomerular Filtration Rate > 60, Glucose Level 89, Uric Acid 3.3, Calcium Level 8.8, Phosphorus Level 4.2, Magnesium Level 1.9, Total Bilirubin 0.3, Aspartate Amino Transf (AST/SGOT) 19, Alanine Aminotransferase (ALT/SGPT) 11L, Alkaline Phosphatase 137H, Total Protein 7.2, Albumin 2.3L, Globulin 4.9, Albumin/ Globulin Ratio 0.5L Height (Feet): 5 Height (Inches): 9.00 Weight (Pounds): 125 General Appearance: no apparent distress Objective no other change NOEMY MARK Aug 11, 2017 11:28
[2017-08-11 11:38] VITALS: BP 105/69
[2017-08-11] MEDS ORDERED: NaCl 3% 500ml 500 ML IV ONE (12:30)
[2017-08-11 16:04] VITALS: BP 104/78
--- NOTE | 2017-08-11 17:53 | Pulmonology Progress Note ---
Assessment/Plan Problems: (1) Perforated abdominal viscus (2) ARF (acute renal failure) (3) Psychosis (4) Acute constipation (5) Amphetamine abuse Assessment/Plan symptomatic treamtment f/u wbc and clinically d/w surgeon iv fluids continue abx, as recommended by ID pain management med/surg check electrolytes Subjective ROS Limited/Unobtainable: No Allergies: Coded Allergies: No Known Allergies (Unverified , 01/20/17) Objective Last 24 Hour Vital Signs Date Time Temp Pulse Resp B/P (MAP) Pulse Ox O2 Delivery O2 Flow Rate FiO2 08/11/17 17:24 97.3 08/11/17 16:04 97.3 104 20 104/78 95 97.3 08/11/17 15:45 97.3 08/11/17 15:15 98.0 08/11/17 13:45 98.0 08/11/17 12:45 98.0 08/11/17 11:38 98.0 108 20 105/69 95 98.0 08/11/17 10:31 98.2 08/11/17 08:17 98.2 110 20 101/70 95 98.2 08/11/17 04:00 97.0 92 18 108/73 95 97.0 08/11/17 02:10 96.4 08/10/17 20:48 96.4 08/10/17 20:00 96.4 96 17 108/69 98 96.4 Intake and Output 08/10/17 08/11/17 19:00 07:00 Intake Total 880 ml 1930 ml Output Total 1500 ml Balance 880 ml 430 ml Intake Oral 850 ml 1600 ml IV Total 30 ml 330 ml Output Urine Total 1500 ml # Voids 4 Objective General Appearance: WD/WN Lines, tubes and drains: peripheral HEENT: normocephalic, atraumatic Neck: non-tender, normal alignment Respiratory/Chest: chest wall non-tender, lungs clear Breasts: no masses Cardiovascular/Chest: normal peripheral pulses, normal rate Abdomen: normal bowel sounds, clean dressing Genitourinary/Rectal: normal genital exam, heme negative stool Extremities: normal range of motion, non-tender Skin Exam: normal pigmentation Laboratory Tests 08/11/17 05:40: Sodium Level 132L, Potassium Level 4.4, Chloride Level 95L, Carbon Dioxide Level 33H, Anion Gap 4L, Blood Urea Nitrogen 13, Creatinine 0.7, Estimat Glomerular Filtration Rate > 60, Glucose Level 89, Uric Acid 3.3, Calcium Level 8.8, Phosphorus Level 4.2, Magnesium Level 1.9, Total Bilirubin 0.3, Aspartate Amino Transf (AST/SGOT) 19, Alanine Aminotransferase (ALT/SGPT) 11L, Alkaline Phosphatase 137H, Total Protein 7.2, Albumin 2.3L, Globulin 4.9, Albumin/ Globulin Ratio 0.5L Current Medications Medications (Trade) Dose Ordered Sig/Kayy Route PRN Reason Start Time Stop Time Status Last Admin Dose Admin Acetaminophen (Tylenol) 650 mg Q6H PRN ORAL Mild Pain/Temp > 100.5 07/14/17 19:00 08/13/17 18:59 07/21/17 12:18 Acetaminophen/ Hydrocodone Bitart ([place] 5/325) 1 tab Q4H PRN ORAL Breakthrough Pain 08/11/17 11:00 08/18/17 10:59 08/11/17 17:24 Dextrose (Dextrose 50%) 25 ml STAT PRN IV HYPOGLYCEMIA 08/08/17 09:45 09/07/17 09:44 Diphenhydramine HCl (Benadryl) 25 mg Q6H PRN IVP Itching 07/25/17 17:00 08/24/17 16:59 08/10/17 09:09 Docusate Sodium (Colace) 100 mg TWICE A DAY ORAL 08/09/17 18:00 09/08/17 17:59 08/11/17 17:24 Famotidine (Pepcid) 40 mg QHS ORAL 08/08/17 21:00 09/07/17 20:59 08/10/17 20:48 Finasteride (Proscar) 5 mg DAILY ORAL 07/13/17 09:00 08/12/17 08:59 08/11/17 10:01 Furosemide (Lasix) 10 mg EVERY 6 HOURS IV 08/10/17 18:00 09/09/17 17:59 08/11/17 17:24 Heparin Sodium (Porcine) (Heparin 5000 units/ml) 5,000 units EVERY 12 HOURS SUBQ 08/01/17 21:00 08/22/17 21:00 08/11/17 10:00 Hydromorphone HCl (Dilaudid) 2 mg Q4H PRN IVP for pain sclae 4-10 08/11/17 10:30 08/18/17 10:29 08/11/17 15:15 Ondansetron HCl (Zofran) 4 mg Q6H PRN IVP Nausea & Vomiting 08/11/17 11:00 09/10/17 10:59 Potassium Chloride (K-Dur) 40 meq DAILY ORAL 07/20/17 09:00 08/19/17 08:59 08/11/17 10:01 Risperidone (RisperDAL) 4 mg BEDTIME ORAL 07/23/17 21:00 08/22/17 20:59 08/10/17 20:48 Sodium Chloride 500 ml @ 30 mls/hr ONCE ONCE IV 08/11/17 12:30 08/12/17 05:09 08/11/17 12:33 Brenda Martel MD Aug 11, 2017 17:53
[2017-08-11 19:55] VITALS: BP 110/79
--- NOTE | 2017-08-12 00:04 | General Progress Note ---
Assessment/Plan Assessment/Plan 1. Anemia, likely due to chronic disease. --> No occult blood. H/H stable at this time. --> Monitor and trend cbc daily. --> Anemia workup reviewed. --> Iron 24, TIBC 173, Ferritin 513, B12 424, Folate 9.5, TSH 4.2 --> Does not need blood transfusion unless symptomatic or hgb <7 2. Leukocytosis. --> Wbc count downtrended from yesterday and resolved at this time. 3. Perforation of viscus and pneumoperitoneum, currently improving. --> Continue to closely monitor. Peripheral smear reviewed as well. 4. Rhabdomyolysis, currently improved with administration of IV fluids. 5. Hypoalbuminemia, likely secondary to decreased p.o. intake, monitor malnutrition. 6. Pneumoperitoneum. 7. Chronic constipation. 8. Schizophrenia, paranoid type. 9. Smoker. 10. Amphetamine use. Subjective Date patient seen: Aug 10, 2017 Constitutional: Denies: no symptoms, chills, diaphoresis, fever, malaise, weakness, other HEENT: Denies: no symptoms, eye pain, blurred vision, tearing, double vision, ear pain, ear discharge, nose pain, nose congestion, throat pain, throat swelling, mouth pain, mouth swelling, other Cardiovascular: Denies: no symptoms, chest pain, edema, irregular heart rate, lightheadedness, palpitations, syncope, other Respiratory: Denies: no symptoms, cough, orthopnea, shortness of breath, SOB with excertion, SOB at rest, sputum, stridor, wheezing, other Gastrointestinal/Abdominal: Denies: no symptoms, abdomen distended, abdominal pain, black stools, tarry stools, blood in stool, constipated, diarrhea, difficulty swallowing, nausea, poor appetite, poor fluid intake, rectal bleeding , vomiting, other Genitourinary: Denies: no symptoms, burning, discharge, frequency, flank pain, hematuria, incontinence, pain, urgency, other Neurologic/Psychiatric: Denies: no symptoms, anxiety, depressed, emotional problems, headache, numbness, paresthesia, pre-existing deficit, seizure, tingling, tremors, weakness, other Hematologic/Lymphatic: Reports: anemia Allergies: Coded Allergies: No Known Allergies (Unverified , 01/20/17) Subjective No major events. On pain control. H/H stable. Objective Last 24 Hour Vital Signs Date Time Temp Pulse Resp B/P (MAP) Pulse Ox O2 Delivery O2 Flow Rate FiO2 08/11/17 23:13 97.9 08/11/17 20:14 97.9 08/11/17 19:55 97.9 116 19 110/79 98 97.9 08/11/17 19:44 97.3 08/11/17 18:59 Room Air 21 08/11/17 18:59 96 Room Air 21 08/11/17 18:23 97.3 08/11/17 17:24 97.3 08/11/17 16:04 97.3 104 20 104/78 95 97.3 08/11/17 15:15 98.0 08/11/17 12:45 98.0 08/11/17 11:38 98.0 108 20 105/69 95 98.0 08/11/17 10:31 98.2 08/11/17 08:17 98.2 110 20 101/70 95 98.2 08/11/17 04:00 97.0 92 18 108/73 95 97.0 08/11/17 02:10 96.4 Intake and Output 08/11/17 08/12/17 19:00 07:00 Intake Total 950 ml Output Total 1200 ml Balance -250 ml Intake Oral 720 ml IV Total 230 ml Output Urine Total 1200 ml Laboratory Tests 08/11/17 05:40: Sodium Level 132L, Potassium Level 4.4, Chloride Level 95L, Carbon Dioxide Level 33H, Anion Gap 4L, Blood Urea Nitrogen 13, Creatinine 0.7, Estimat Glomerular Filtration Rate > 60, Glucose Level 89, Uric Acid 3.3, Calcium Level 8.8, Phosphorus Level 4.2, Magnesium Level 1.9, Total Bilirubin 0.3, Aspartate Amino Transf (AST/SGOT) 19, Alanine Aminotransferase (ALT/SGPT) 11L, Alkaline Phosphatase 137H, Total Protein 7.2, Albumin 2.3L, Globulin 4.9, Albumin/ Globulin Ratio 0.5L Height (Feet): 5 Height (Inches): 9.00 Weight (Pounds): 125 General Appearance: no apparent distress Cardiovascular: normal rate Respiratory/Chest: lungs clear Abdomen: soft Tashi Brown MD Aug 12, 2017 00:04
[2017-08-12 00:30] VITALS: BP 103/65
[2017-08-12] MEDS: Norco 5mg/325mg tab ORAL PRN ×4 (03:43→17:51)
[2017-08-12 04:38] VITALS: BP 107/73
[2017-08-12 07:19] LABS: BASOPHILS % (AUTO) 0.6 % (0.0-2.0); EOSINOPHILS % (AUTO) 3.2 % (0.0-3.0); HEMATOCRIT 26.2 % (42.0-52.0); HEMOGLOBIN 8.8 G/DL (14.2-18.0); LYMPHOCYTES % (AUTO) 19.2 % (20.0-45.0); MEAN CORPUSCULAR VOLUME 90 FL (80-99); MONOCYTES % (AUTO) 2.7 % (1.0-10.0); NEUTROPHILS % (AUTO) 74.4 % (45.0-75.0); PLATELET COUNT 299 K/UL (150-450); RED BLOOD COUNT 2.91 M/UL (4.70-6.10)
[2017-08-12 07:45] LABS: ALANINE AMINOTRANSFERASE 13 U/L (12-78); ALBUMIN 2.2 G/DL (3.4-5.0); ALBUMIN/GLOBULIN RATIO 0.5 (1.0-2.7); ALKALINE PHOSPHATASE 135 U/L (46-116); ANION GAP 5 mmol/L (5-15); ASPARTATE AMINO TRANSFERASE 15 U/L (15-37); BILIRUBIN,TOTAL 0.2 MG/DL (0.2-1.0); BLOOD UREA NITROGEN 17 mg/dL (7-18); CALCIUM 8.6 MG/DL (8.5-10.1); CARBON DIOXIDE 33 MMOL/L (21-32); CHLORIDE 97 MMOL/L (98-107); CREATININE 0.5 MG/DL (0.55-1.30); PHOSPHORUS 4.3 MG/DL (2.5-4.9); POTASSIUM 3.8 MMOL/L (3.5-5.1); SODIUM 135 MMOL/L (136-145)
[2017-08-12 08:05] VITALS: BP 110/61
[2017-08-12] MEDS: Docusate 100mg cap ORAL SCH ×2 (08:48→17:13)
[2017-08-12] MEDS: Heparin 5000 units/ml inj SUBQ SCH ×2 (08:49→20:47)
--- NOTE | 2017-08-12 10:34 | General Progress Note ---
Progress Note Progress Note Surgery: doing well. labs improving. wounds look great. exam benign and patient much improved. ostomy functional. tolerating diet okay to d/c from surgical standpoint Gilberto Michelle Aug 12, 2017 10:34
--- NOTE | 2017-08-12 11:49 | Nephrology Progress Note ---
Assessment/Plan Problem List: (1) ARF (acute renal failure) (2) UTI (urinary tract infection) (3) Psychiatric disorder (4) Acute abdomen Assessment Status: Na now up to 135 WBCs wnl had multi abdominal drains acute renal failure- extended left colectomy due to perf transverse colostomy creation Plan Plan: low Na ... improving...work up intitiated .....likely SIADH PO Fluid Restriction DC lasix IV per charles, 07/20/17 Mag and K supplement as needed Post op ( OP 07/08/17) Dickens- 2D echo normal Ej Fx Albumin bollous monitor renal parameters K and Phos and Mag supplement as needed Subjective ROS Limited/Unobtainable: No Constitutional: Reports: malaise Objective Objective Last 24 Hour Vital Signs Date Time Temp Pulse Resp B/P (MAP) Pulse Ox O2 Delivery O2 Flow Rate FiO2 08/12/17 10:59 98.1 08/12/17 09:46 98.1 08/12/17 08:47 98.1 08/12/17 08:05 98.1 94 18 110/61 96 Room Air 98.1 08/12/17 05:51 98.4 08/12/17 05:21 98.4 08/12/17 04:41 Room Air 08/12/17 04:38 98.4 100 19 107/73 97 98.4 08/12/17 03:43 98.0 08/12/17 00:35 98.0 08/12/17 00:30 98.0 103 20 103/65 96 98.0 08/12/17 00:00 Room Air 08/11/17 23:13 97.9 08/11/17 20:00 Room Air 08/11/17 19:55 97.9 116 19 110/79 98 97.9 08/11/17 19:44 97.3 08/11/17 18:59 Room Air 21 08/11/17 18:59 96 Room Air 21 08/11/17 17:24 97.3 08/11/17 16:04 97.3 104 20 104/78 95 97.3 08/11/17 15:15 98.0 08/11/17 12:45 98.0 Intake and Output 08/11/17 08/12/17 19:00 07:00 Intake Total 980 ml 360 ml Output Total 1200 ml 750 ml Balance -220 ml -390 ml Intake Oral 720 ml 240 ml IV Total 260 ml 120 ml Output Urine Total 1200 ml 600 ml Stool Total 150 ml Laboratory Tests 08/12/17 05:10: White Blood Count 8.0, Red Blood Count 2.91L, Hemoglobin 8.8L, Hematocrit 26.2L , Mean Corpuscular Volume 90, Mean Corpuscular Hemoglobin 30.2, Mean Corpuscular Hemoglobin Concent 33.6, Red Cell Distribution Width 17.0H, Platelet Count 299, Mean Platelet Volume 4.3L, Neutrophils (%) (Auto) 74.4, Lymphocytes (%) (Auto) 19.2L, Monocytes (%) (Auto) 2.7, Eosinophils (%) (Auto) 3.2H, Basophils (%) (Auto) 0.6, Sodium Level 135L, Potassium Level 3.8, Chloride Level 97L, Carbon Dioxide Level 33H, Anion Gap 5, Blood Urea Nitrogen 17, Creatinine 0.5L, Estimat Glomerular Filtration Rate > 60, Glucose Level 109H , Uric Acid 3.0, Calcium Level 8.6, Phosphorus Level 4.3, Magnesium Level 1.7L, Total Bilirubin 0.2, Aspartate Amino Transf (AST/SGOT) 15, Alanine Aminotransferase (ALT/SGPT) 13, Alkaline Phosphatase 135H, C-Reactive Protein, Quantitative 3.7H, Total Protein 6.7, Albumin 2.2L, Globulin 4.5, Albumin/ Globulin Ratio 0.5L Height (Feet): 5 Height (Inches): 9.00 Weight (Pounds): 128 General Appearance: no apparent distress Objective no other change NOEMY MARK Aug 12, 2017 11:49
[2017-08-12 12:00] VITALS: BP 102/64
--- NOTE | 2017-08-12 15:56 | Infectious Diseases Prog Note ---
Assessment/Plan Assessment/Plan ASSESSMENT: The patient is a 46-year-old male with; Bowel perf w/ development of 2 Abscess (subphrenic and pelvic) Cx: E coli( ESBL) and ENTEROCOCCUS AVIUM (turcios S) and Bact Fragilis - s/p I+D x2- now almost complete resolution of abscess -CT abd/p w/ 08/02: Mostly resolved left upper quadrant and right upper quadrant fluid collections, post surgical evacuation. Minimal residual fluid as described. Appearance of the residual fluid is nonspecific as regards whether or not infected. Other postsurgical changes, as described, including the minimal residual pneumoperitoneum, surgical drain removal. 2 new fluid collections within the liver, could represent small hepatic abscesses versus noninfected acquired fluid collections, possibly related to surgical trauma. Dilated proximal small bowel, gradually narrowing to normal caliber more distally. No evidence of obstruction, as ingested contrast is seen to traverse the entirety of the GI tract. Small splenic hilar, gastric varices. This, in combination with mesenteric congestion, could indicate portal hypertension. However, no morphologic changes of the liver to suggest cirrhosis are evident. Moderate right pleural effusion, slightly decreased in size from the previous study. Trace left pleural effusion, significantly decreased in size from the previous study. Gas within the bladder. Probably related to recent instrumentation. If there is no history of recent Dickens catheterization, however , the possibility of emphysematous cystitis should be considered -s/p exploratory laparotomy, abdominal washout, evacuation of abscess, drain placement and abdominal closure 07/20; cx not received in the lab -s/p CT guided drainage APOLLO fluid collection 07/19: Aspiration and drainage of left upper quadrant collection, yielding 150 mL of carin pus. Note that the collection could only be partially evacuated, however, despite confirmation of apparent adequate position of the drain.This may indicate high viscosity of the contents; cx E. fecalis (turcios S), PREVOTELLA LOESCHEII ([place]umgentin, Clinda R; Metronidazole S) s/p ex lap with left colectomy and transverse colostomy for perforated left colon, evacuation of intrabd abscess, abd washout w/ drain placement 07/09 -CT abd/p w/ 07/18: Postsurgical changes, as described, status post transverse colectomy, Jazz procedure, and placement of multiple surgical drains. Left upper quadrant intraperitoneal fluid collection, despite the presence of a surgical drain in the center of the collection. The presence of gas bubbles within rather than floating nondependently in the collection indicate that this fluid may be viscous. 2 other significant intraperitoneal collections,which do not appear to communicate, possibly loculated. Given presence of somewhat thick enhancing rim surrounding all of these, infected collections are certainly possible ( left paracolic gutter 5.8 cmx 4.3 cm x 8.3cm and R paracolic gutter, medial and inferior to tip R hepatic lobe 8cm x 6.4cm x8cm). Other than the gas within the left upper quadrant collection, previously demonstrated pneumoperitoneum has largely resolved. Left upper quadrant thick walled small bowel loops. Possibly reactive due to adjacent inflammation, enteritis is also possible. No evidence of bowel obstruction. Gallbladder wall edema versus pericholecystic fluid. -OR findings: The omentum was significantly thickened and adhesed to the small bowel and into the left lower quadrant. There was significant inflammatory process throughout the abdomen including a thickening of almost the entire peritoneal lining. The proximal portion of the jejunum was significantly thickened and had a rind of inflammatory infectious tissue on it. left transverse and descending colon, there was significant amount of thickening and significant disease process with some areas of mild ischemia noted and in the descending colon around the descending and sigmoid junction, there was a gross perforation with grossspillage of bowel contents noted in the area. there was a fluid collection/pelvic abscess, which was evacuated. There was a fluid collection in the right upper quadrant around the liver, which was evacuated and a large left upper quadrant subphrenic abscess with significant tissue rind and thickening around the stomach, spleen, peritoneum, and diaphragm in that location. CT : Evidence of perforation of hollow viscus with extensive amount of free air in the upper abdomen and some free fluid is well. Fever, SP Leukocytosis SP -07/31 Cdiff neg -07/15 Bcx Neg ?PNA, SP Rx -CXR 07/31: Improved left basilar consolidation, since 07/15/2017. Some residual atelectasis and possibly minimal residual consolidation. Decreased but persistent pleural fluid on the left. Resolved right mid and lower lung consolidation. Some residual perihilar atelectasis. New or increased small right pleural effusion. Left upper quadrant surgical drain Elevated ALP , improved -Abd US: Negative for gallstones. There is borderline gallbladder wall thickening, however. Most likely, this is reactive secondary to surrounding inflammation related to recent bowel perforation and surgery for such. However, the possibility of acalculous acute cholecystitis should be considered, and consideration for nuclear medicine hepatobiliary scanning if there is high clinical suspicion history of diarrhea, SP RAMSEY: Improved HTN COPD/asthma. Smoker. History of chronic constipation. Osteoarthritis. ? CAD/OH, hx PLAN: - Monitor pt off of AB Rx 08/10 SP IV Meropenem abx d#31 , Fluconazole # 21, Linezolid #18 , monitor pt off of AB Rx -weekly CBC/CMP --08/02 SP IV ampicillin #17 --07/21 Zosyn #4 --07/18 SP Ertapenem, PO Amoxicillin #3 --07/16 SP Cefepime #2 --07/12 SP Zosyn d# 6 --SP Rocephin d# 5 -surgery following midline wound closure needed -wound care -Trend WBC Subjective Constitutional: Denies: no symptoms, fever, chills, fatigue, anorexia, drenching sweats, other Allergies: Coded Allergies: No Known Allergies (Unverified , 01/20/17) Subjective afebrile Objective Vital Signs Last 24 Hour Vital Signs Date Time Temp Pulse Resp B/P (MAP) Pulse Ox O2 Delivery O2 Flow Rate FiO2 08/12/17 14:45 97.5 08/12/17 13:46 97.5 08/12/17 12:00 97.5 82 18 102/64 95 Room Air 97.5 08/12/17 11:29 98.1 08/12/17 10:59 98.1 08/12/17 08:47 98.1 08/12/17 08:05 98.1 94 18 110/61 96 Room Air 98.1 08/12/17 07:40 Room Air 08/12/17 07:40 96 Room Air 21 08/12/17 05:21 98.4 08/12/17 04:41 Room Air 08/12/17 04:38 98.4 100 19 107/73 97 98.4 08/12/17 03:43 98.0 08/12/17 00:35 98.0 08/12/17 00:30 98.0 103 20 103/65 96 98.0 08/12/17 00:00 Room Air 08/11/17 23:13 97.9 08/11/17 20:00 Room Air 08/11/17 19:55 97.9 116 19 110/79 98 97.9 08/11/17 19:44 97.3 08/11/17 18:59 Room Air 21 08/11/17 18:59 96 Room Air 21 08/11/17 17:24 97.3 08/11/17 16:04 97.3 104 20 104/78 95 97.3 Height (Feet): 5 Height (Inches): 9.00 Weight (Pounds): 128 HEENT: atraumatic Respiratory/Chest: normal breath sounds Cardiovascular: regular rhythm Abdomen: no organomegaly Laboratory Tests Test 08/12/17 05:10 White Blood Count 8.0 K/UL (4.8-10.8) Red Blood Count 2.91 M/UL (4.70-6.10) L Hemoglobin 8.8 G/DL (14.2-18.0) L Hematocrit 26.2 % (42.0-52.0) L Mean Corpuscular Volume 90 FL (80-99) Mean Corpuscular Hemoglobin 30.2 PG (27.0-31.0) Mean Corpuscular Hemoglobin Concent 33.6 G/DL (32.0-36.0) Red Cell Distribution Width 17.0 % (11.6-14.8) H Platelet Count 299 K/UL (150-450) Mean Platelet Volume 4.3 FL (6.5-10.1) L Neutrophils (%) (Auto) 74.4 % (45.0-75.0) Lymphocytes (%) (Auto) 19.2 % (20.0-45.0) L Monocytes (%) (Auto) 2.7 % (1.0-10.0) Eosinophils (%) (Auto) 3.2 % (0.0-3.0) H Basophils (%) (Auto) 0.6 % (0.0-2.0) Sodium Level 135 MMOL/L (136-145) L Potassium Level 3.8 MMOL/L (3.5-5.1) Chloride Level 97 MMOL/L (98-107) L Carbon Dioxide Level 33 MMOL/L (21-32) H Anion Gap 5 mmol/L (5-15) Blood Urea Nitrogen 17 mg/dL (7-18) Creatinine 0.5 MG/DL (0.55-1.30) L Estimat Glomerular Filtration Rate > 60 mL/min (>60) Glucose Level 109 MG/DL (74-106) H Uric Acid 3.0 MG/DL (2.6-7.2) Calcium Level 8.6 MG/DL (8.5-10.1) Phosphorus Level 4.3 MG/DL (2.5-4.9) Magnesium Level 1.7 MG/DL (1.8-2.4) L Total Bilirubin 0.2 MG/DL (0.2-1.0) Aspartate Amino Transf (AST/SGOT) 15 U/L (15-37) Alanine Aminotransferase (ALT/SGPT) 13 U/L (12-78) Alkaline Phosphatase 135 U/L (46-116) H C-Reactive Protein, Quantitative 3.7 mg/dL (0.00-0.90) H Total Protein 6.7 G/DL (6.4-8.2) Albumin 2.2 G/DL (3.4-5.0) L Globulin 4.5 g/dL Albumin/Globulin Ratio 0.5 (1.0-2.7) L Current Medications Medications (Trade) Dose Ordered Sig/Kayy Route PRN Reason Start Time Stop Time Status Last Admin Dose Admin Acetaminophen (Tylenol) 650 mg Q6H PRN ORAL Mild Pain/Temp > 100.5 07/14/17 19:00 08/13/17 18:59 07/21/17 12:18 Acetaminophen/ Hydrocodone Bitart ([place] 5/325) 1 tab Q4H PRN ORAL Breakthrough Pain 08/11/17 11:00 08/18/17 10:59 08/12/17 13:46 Dextrose (Dextrose 50%) 25 ml STAT PRN IV HYPOGLYCEMIA 08/08/17 09:45 09/07/17 09:44 Diphenhydramine HCl (Benadryl) 25 mg Q6H PRN IVP Itching 07/25/17 17:00 08/24/17 16:59 08/10/17 09:09 Docusate Sodium (Colace) 100 mg TWICE A DAY ORAL 08/09/17 18:00 09/08/17 17:59 08/12/17 08:48 Famotidine (Pepcid) 40 mg QHS ORAL 08/08/17 21:00 09/07/17 20:59 08/11/17 20:41 Heparin Sodium (Porcine) (Heparin 5000 units/ml) 5,000 units EVERY 12 HOURS SUBQ 08/01/17 21:00 08/22/17 21:00 08/12/17 08:49 Hydromorphone HCl (Dilaudid) 2 mg Q4H PRN IVP for pain sclae 4-10 08/11/17 10:30 08/18/17 10:29 08/12/17 10:59 Ondansetron HCl (Zofran) 4 mg Q6H PRN IVP Nausea & Vomiting 08/11/17 11:00 09/10/17 10:59 08/11/17 23:59 Potassium Chloride (K-Dur) 40 meq DAILY ORAL 07/20/17 09:00 08/19/17 08:59 08/12/17 08:48 Risperidone (RisperDAL) 4 mg BEDTIME ORAL 07/23/17 21:00 08/22/17 20:59 08/11/17 20:41 Rick Arvizu MD Aug 12, 2017 15:56
[2017-08-12 16:02] VITALS: BP 110/58
--- NOTE | 2017-08-12 16:07 | Pulmonology Progress Note ---
Assessment/Plan Problems: (1) Perforated abdominal viscus (2) ARF (acute renal failure) (3) Psychosis (4) Acute constipation (5) Amphetamine abuse Assessment/Plan symptomatic treamtment f/u wbc and clinically check lbas iv fluids continue abx, as recommended by ID pain management med/surg all reviewed dc planning Subjective ROS Limited/Unobtainable: No Constitutional: Reports: no symptoms HEENT: Repors: no symptoms Respiratory: Reports: no symptoms Allergies: Coded Allergies: No Known Allergies (Unverified , 01/20/17) Objective Last 24 Hour Vital Signs Date Time Temp Pulse Resp B/P (MAP) Pulse Ox O2 Delivery O2 Flow Rate FiO2 08/12/17 16:02 97.9 94 18 110/58 96 Room Air 97.9 08/12/17 15:58 97.5 08/12/17 14:45 97.5 08/12/17 13:46 97.5 08/12/17 12:00 97.5 82 18 102/64 95 Room Air 97.5 08/12/17 11:29 98.1 08/12/17 10:59 98.1 08/12/17 08:47 98.1 08/12/17 08:05 98.1 94 18 110/61 96 Room Air 98.1 08/12/17 07:40 Room Air 08/12/17 07:40 96 Room Air 21 08/12/17 05:21 98.4 08/12/17 04:41 Room Air 08/12/17 04:38 98.4 100 19 107/73 97 98.4 08/12/17 03:43 98.0 08/12/17 00:35 98.0 08/12/17 00:30 98.0 103 20 103/65 96 98.0 08/12/17 00:00 Room Air 08/11/17 23:13 97.9 08/11/17 20:00 Room Air 08/11/17 19:55 97.9 116 19 110/79 98 97.9 08/11/17 19:44 97.3 08/11/17 18:59 Room Air 21 08/11/17 18:59 96 Room Air 21 08/11/17 17:24 97.3 Intake and Output 08/11/17 08/12/17 19:00 07:00 Intake Total 980 ml 360 ml Output Total 1200 ml 750 ml Balance -220 ml -390 ml Intake Oral 720 ml 240 ml IV Total 260 ml 120 ml Output Urine Total 1200 ml 600 ml Stool Total 150 ml Objective General Appearance: WD/WN Lines, tubes and drains: peripheral HEENT: normocephalic, atraumatic Neck: non-tender, normal alignment Respiratory/Chest: chest wall non-tender, lungs clear Breasts: no masses Cardiovascular/Chest: normal peripheral pulses, normal rate Abdomen: normal bowel sounds, clean dressing Genitourinary/Rectal: normal genital exam, heme negative stool Extremities: normal range of motion, non-tender Skin Exam: normal pigmentation Laboratory Tests 08/12/17 05:10: White Blood Count 8.0, Red Blood Count 2.91L, Hemoglobin 8.8L, Hematocrit 26.2L , Mean Corpuscular Volume 90, Mean Corpuscular Hemoglobin 30.2, Mean Corpuscular Hemoglobin Concent 33.6, Red Cell Distribution Width 17.0H, Platelet Count 299, Mean Platelet Volume 4.3L, Neutrophils (%) (Auto) 74.4, Lymphocytes (%) (Auto) 19.2L, Monocytes (%) (Auto) 2.7, Eosinophils (%) (Auto) 3.2H, Basophils (%) (Auto) 0.6, Sodium Level 135L, Potassium Level 3.8, Chloride Level 97L, Carbon Dioxide Level 33H, Anion Gap 5, Blood Urea Nitrogen 17, Creatinine 0.5L, Estimat Glomerular Filtration Rate > 60, Glucose Level 109H , Uric Acid 3.0, Calcium Level 8.6, Phosphorus Level 4.3, Magnesium Level 1.7L, Total Bilirubin 0.2, Aspartate Amino Transf (AST/SGOT) 15, Alanine Aminotransferase (ALT/SGPT) 13, Alkaline Phosphatase 135H, C-Reactive Protein, Quantitative 3.7H, Total Protein 6.7, Albumin 2.2L, Globulin 4.5, Albumin/ Globulin Ratio 0.5L Current Medications Medications (Trade) Dose Ordered Sig/Kayy Route PRN Reason Start Time Stop Time Status Last Admin Dose Admin Acetaminophen (Tylenol) 650 mg Q6H PRN ORAL Mild Pain/Temp > 100.5 07/14/17 19:00 08/13/17 18:59 07/21/17 12:18 Acetaminophen/ Hydrocodone Bitart ([place] 5/325) 1 tab Q4H PRN ORAL Breakthrough Pain 08/11/17 11:00 08/18/17 10:59 08/12/17 13:46 Dextrose (Dextrose 50%) 25 ml STAT PRN IV HYPOGLYCEMIA 08/08/17 09:45 09/07/17 09:44 Diphenhydramine HCl (Benadryl) 25 mg Q6H PRN IVP Itching 07/25/17 17:00 08/24/17 16:59 08/10/17 09:09 Docusate Sodium (Colace) 100 mg TWICE A DAY ORAL 08/09/17 18:00 09/08/17 17:59 08/12/17 08:48 Famotidine (Pepcid) 40 mg QHS ORAL 08/08/17 21:00 09/07/17 20:59 08/11/17 20:41 Heparin Sodium (Porcine) (Heparin 5000 units/ml) 5,000 units EVERY 12 HOURS SUBQ 08/01/17 21:00 08/22/17 21:00 08/12/17 08:49 Hydromorphone HCl (Dilaudid) 2 mg Q4H PRN IVP for pain sclae 4-10 08/11/17 10:30 08/18/17 10:29 08/12/17 15:58 Ondansetron HCl (Zofran) 4 mg Q6H PRN IVP Nausea & Vomiting 08/11/17 11:00 09/10/17 10:59 08/11/17 23:59 Potassium Chloride (K-Dur) 40 meq DAILY ORAL 07/20/17 09:00 08/19/17 08:59 08/12/17 08:48 Risperidone (RisperDAL) 4 mg BEDTIME ORAL 07/23/17 21:00 08/22/17 20:59 08/11/17 20:41 Brenda Martel MD Aug 12, 2017 16:07
[2017-08-12 20:00] VITALS: BP 115/71
[2017-08-12] MEDS: DiphenhydrAMINE 50mg/ml Inj IVP PRN (20:46)
[2017-08-13] VITALS: BP 116/67
--- NOTE | 2017-08-13 00:04 | General Progress Note ---
Assessment/Plan Assessment/Plan #. Anemia, likely due to chronic disease. --> No occult blood. H/H stable at this time. --> Monitor and trend cbc daily. --> Anemia workup reviewed. --> Iron 24, TIBC 173, Ferritin 513, B12 424, Folate 9.5, TSH 4.2 --> Does not need blood transfusion unless symptomatic or hgb <7 #. Leukocytosis. --> Wbc count downtrended from yesterday and resolved at this time. #. Perforation of viscus and pneumoperitoneum, currently improving. --> Continue to closely monitor. Peripheral smear reviewed as well. --> exam with peritonitis generalized but with focus in LLQ. #. Rhabdomyolysis, currently improved with administration of IV fluids. #. Hypoalbuminemia, likely secondary to decreased p.o. intake, monitor malnutrition. --> Due to elevated CPK of 1543, resolved at this time. #. Pneumoperitoneum. #. Pleuritic chest pain. #. Chronic constipation. #. Schizophrenia, paranoid type. #. Smoker. #. Amphetamine use. #. Perforated left colon with prolonged inflammatory reaction, gross spillage, bowel ischemia. #. Wound Care. Subjective Date patient seen: Aug 11, 2017 Constitutional: Denies: no symptoms, chills, diaphoresis, fever, malaise, weakness, other HEENT: Denies: no symptoms, eye pain, blurred vision, tearing, double vision, ear pain, ear discharge, nose pain, nose congestion, throat pain, throat swelling, mouth pain, mouth swelling, other Cardiovascular: Denies: no symptoms, chest pain, edema, irregular heart rate, lightheadedness, palpitations, syncope, other Respiratory: Denies: no symptoms, cough, orthopnea, shortness of breath, SOB with excertion, SOB at rest, sputum, stridor, wheezing, other Gastrointestinal/Abdominal: Denies: no symptoms, abdomen distended, abdominal pain, black stools, tarry stools, blood in stool, constipated, diarrhea, difficulty swallowing, nausea, poor appetite, poor fluid intake, rectal bleeding , vomiting, other Genitourinary: Denies: no symptoms, burning, discharge, frequency, flank pain, hematuria, incontinence, pain, urgency, other Neurologic/Psychiatric: Denies: no symptoms, anxiety, depressed, emotional problems, headache, numbness, paresthesia, pre-existing deficit, seizure, tingling, tremors, weakness, other Allergies: Coded Allergies: No Known Allergies (Unverified , 01/20/17) Subjective On pain management. Wound care was done. H/H stable. Objective Last 24 Hour Vital Signs Date Time Temp Pulse Resp B/P (MAP) Pulse Ox O2 Delivery O2 Flow Rate FiO2 08/12/17 20:35 97.9 08/12/17 20:05 97.9 08/12/17 20:00 97.5 92 18 115/71 8 Room Air 97.5 08/12/17 18:50 97.9 08/12/17 17:51 97.9 08/12/17 16:02 97.9 94 18 110/58 96 Room Air 97.9 08/12/17 15:58 97.5 08/12/17 13:46 97.5 08/12/17 12:00 97.5 82 18 102/64 95 Room Air 97.5 08/12/17 10:59 98.1 08/12/17 08:47 98.1 08/12/17 08:05 98.1 94 18 110/61 96 Room Air 98.1 08/12/17 07:40 Room Air 08/12/17 07:40 96 Room Air 21 08/12/17 05:21 98.4 08/12/17 04:41 Room Air 08/12/17 04:38 98.4 100 19 107/73 97 98.4 08/12/17 03:43 98.0 08/12/17 00:35 98.0 08/12/17 00:30 98.0 103 20 103/65 96 98.0 08/12/17 00:00 Room Air Intake and Output 08/11/17 08/12/17 19:00 07:00 Intake Total 1070 ml 360 ml Output Total 1200 ml 750 ml Balance -130 ml -390 ml Intake Oral 720 ml 240 ml IV Total 350 ml 120 ml Output Urine Total 1200 ml 600 ml Stool Total 150 ml Laboratory Tests 08/12/17 05:10: White Blood Count 8.0, Red Blood Count 2.91L, Hemoglobin 8.8L, Hematocrit 26.2L , Mean Corpuscular Volume 90, Mean Corpuscular Hemoglobin 30.2, Mean Corpuscular Hemoglobin Concent 33.6, Red Cell Distribution Width 17.0H, Platelet Count 299, Mean Platelet Volume 4.3L, Neutrophils (%) (Auto) 74.4, Lymphocytes (%) (Auto) 19.2L, Monocytes (%) (Auto) 2.7, Eosinophils (%) (Auto) 3.2H, Basophils (%) (Auto) 0.6, Sodium Level 135L, Potassium Level 3.8, Chloride Level 97L, Carbon Dioxide Level 33H, Anion Gap 5, Blood Urea Nitrogen 17, Creatinine 0.5L, Estimat Glomerular Filtration Rate > 60, Glucose Level 109H , Uric Acid 3.0, Calcium Level 8.6, Phosphorus Level 4.3, Magnesium Level 1.7L, Total Bilirubin 0.2, Aspartate Amino Transf (AST/SGOT) 15, Alanine Aminotransferase (ALT/SGPT) 13, Alkaline Phosphatase 135H, C-Reactive Protein, Quantitative 3.7H, Total Protein 6.7, Albumin 2.2L, Globulin 4.5, Albumin/ Globulin Ratio 0.5L Height (Feet): 5 Height (Inches): 9.00 Weight (Pounds): 128 General Appearance: confused Respiratory/Chest: decreased breath sounds Tashi Brown MD Aug 13, 2017 00:04
--- NOTE | 2017-08-13 02:04 | General Progress Note ---
Assessment/Plan Assessment/Plan #. Anemia, likely due to chronic disease. --> No occult blood. H/H stable at this time. --> Monitor and trend cbc daily. --> Anemia workup reviewed. --> Iron 24, TIBC 173, Ferritin 513, B12 424, Folate 9.5, TSH 4.2 --> Does not need blood transfusion unless symptomatic or hgb <7 #. Leukocytosis. --> Wbc count downtrended from yesterday and resolved at this time. #. Perforation of viscus and pneumoperitoneum, currently improving. --> Continue to closely monitor. Peripheral smear reviewed as well. --> exam with peritonitis generalized but with focus in LLQ. #. Rhabdomyolysis, currently improved with administration of IV fluids. #. Hypoalbuminemia, likely secondary to decreased p.o. intake, monitor malnutrition. --> Due to elevated CPK of 1543, resolved at this time. #. Pneumoperitoneum. #. Pleuritic chest pain. #. Chronic constipation. #. Schizophrenia, paranoid type. #. Smoker. #. Amphetamine use. #. Perforated left colon with prolonged inflammatory reaction, gross spillage, bowel ischemia. #. Wound Care. Subjective Allergies: Coded Allergies: No Known Allergies (Unverified , 01/20/17) Subjective On pain management. Wound care was done. H/H stable. Objective Last 24 Hour Vital Signs Date Time Temp Pulse Resp B/P (MAP) Pulse Ox O2 Delivery O2 Flow Rate FiO2 08/13/17 00:41 97.9 08/13/17 00:11 97.9 08/13/17 00:00 98.2 101 18 116/67 94 Room Air 98.2 08/12/17 20:05 97.9 08/12/17 20:00 97.5 92 18 115/71 98 Room Air 97.5 08/12/17 18:50 97.9 08/12/17 17:51 97.9 08/12/17 16:02 97.9 94 18 110/58 96 Room Air 97.9 08/12/17 15:58 97.5 08/12/17 13:46 97.5 08/12/17 12:00 97.5 82 18 102/64 95 Room Air 97.5 08/12/17 10:59 98.1 08/12/17 08:47 98.1 4/8/18 08:05 98.1 94 18 110/61 96 Room Air 98.1 08/12/17 07:40 Room Air 08/12/17 07:40 96 Room Air 21 08/12/17 05:21 98.4 08/12/17 04:41 Room Air 08/12/17 04:38 98.4 100 19 107/73 97 98.4 08/12/17 03:43 98.0 Intake and Output 08/12/17 08/13/17 19:00 07:00 Intake Total 240 ml Output Total 700 ml 100 ml Balance -460 ml -100 ml Intake Oral 240 ml Output Urine Total 700 ml Stool Total 100 ml Laboratory Tests 08/12/17 05:10: White Blood Count 8.0, Red Blood Count 2.91L, Hemoglobin 8.8L, Hematocrit 26.2L , Mean Corpuscular Volume 90, Mean Corpuscular Hemoglobin 30.2, Mean Corpuscular Hemoglobin Concent 33.6, Red Cell Distribution Width 17.0H, Platelet Count 299, Mean Platelet Volume 4.3L, Neutrophils (%) (Auto) 74.4, Lymphocytes (%) (Auto) 19.2L, Monocytes (%) (Auto) 2.7, Eosinophils (%) (Auto) 3.2H, Basophils (%) (Auto) 0.6, Sodium Level 135L, Potassium Level 3.8, Chloride Level 97L, Carbon Dioxide Level 33H, Anion Gap 5, Blood Urea Nitrogen 17, Creatinine 0.5L, Estimat Glomerular Filtration Rate > 60, Glucose Level 109H , Uric Acid 3.0, Calcium Level 8.6, Phosphorus Level 4.3, Magnesium Level 1.7L, Total Bilirubin 0.2, Aspartate Amino Transf (AST/SGOT) 15, Alanine Aminotransferase (ALT/SGPT) 13, Alkaline Phosphatase 135H, C-Reactive Protein, Quantitative 3.7H, Total Protein 6.7, Albumin 2.2L, Globulin 4.5, Albumin/ Globulin Ratio 0.5L Height (Feet): 5 Height (Inches): 9.00 Weight (Pounds): 128 Tashi Brown MD Aug 13, 2017 02:04
--- NOTE | 2017-08-13 02:06 | General Progress Note ---
Assessment/Plan Assessment/Plan #. Anemia, likely due to chronic disease. --> No occult blood. H/H stable at this time. --> Monitor and trend cbc daily. --> Anemia workup reviewed. --> Iron 24, TIBC 173, Ferritin 513, B12 424, Folate 9.5, TSH 4.2 --> Does not need blood transfusion unless symptomatic or hgb <7 #. Perforation of viscus and pneumoperitoneum, currently improving. --> Continue to closely monitor. Peripheral smear reviewed as well. --> exam with peritonitis generalized but with focus in LLQ. #. Rhabdomyolysis, currently improved with administration of IV fluids. #. Hypoalbuminemia, likely secondary to decreased p.o. intake, monitor malnutrition. --> Due to elevated CPK of 1543, resolved at this time. #. Pneumoperitoneum. #. Pleuritic chest pain. #. Chronic constipation. #. Schizophrenia, paranoid type. #. Smoker. #. Amphetamine use. #. Perforated left colon with prolonged inflammatory reaction, gross spillage, bowel ischemia. #. Wound Care. #. Leukocytosis. --> Wbc count downtrended from yesterday and resolved at this time. Subjective Date patient seen: Aug 12, 2017 Constitutional: Denies: no symptoms, chills, diaphoresis, fever, malaise, weakness, other HEENT: Denies: no symptoms, eye pain, blurred vision, tearing, double vision, ear pain, ear discharge, nose pain, nose congestion, throat pain, throat swelling, mouth pain, mouth swelling, other Cardiovascular: Denies: no symptoms, chest pain, edema, irregular heart rate, lightheadedness, palpitations, syncope, other Respiratory: Denies: no symptoms, cough, orthopnea, shortness of breath, SOB with excertion, SOB at rest, sputum, stridor, wheezing, other Gastrointestinal/Abdominal: Denies: no symptoms, abdomen distended, abdominal pain, black stools, tarry stools, blood in stool, constipated, diarrhea, difficulty swallowing, nausea, poor appetite, poor fluid intake, rectal bleeding , vomiting, other Genitourinary: Denies: no symptoms, burning, discharge, frequency, flank pain, hematuria, incontinence, pain, urgency, other Neurologic/Psychiatric: Denies: no symptoms, anxiety, depressed, emotional problems, headache, numbness, paresthesia, pre-existing deficit, seizure, tingling, tremors, weakness, other Endocrine: Denies: no symptoms, excessive sweating, flushing, intolerance to cold, intolerance to heat, increased hunger, increased thirst, increased urine, unexplained weight gain, unexplained weight loss, other Allergies: Coded Allergies: No Known Allergies (Unverified , 01/20/17) Subjective C/o abd pain. No fever Objective Last 24 Hour Vital Signs Date Time Temp Pulse Resp B/P (MAP) Pulse Ox O2 Delivery O2 Flow Rate FiO2 08/13/17 00:41 97.9 08/13/17 00:11 97.9 08/13/17 00:00 98.2 101 18 116/67 94 Room Air 98.2 08/12/17 20:05 97.9 08/12/17 20:00 97.5 92 18 115/71 98 Room Air 97.5 08/12/17 18:50 97.9 08/12/17 17:51 97.9 08/12/17 16:02 97.9 94 18 110/58 96 Room Air 97.9 08/12/17 15:58 97.5 08/12/17 13:46 97.5 08/12/17 12:00 97.5 82 18 102/64 95 Room Air 97.5 08/12/17 10:59 98.1 08/12/17 08:47 98.1 08/12/17 08:05 98.1 94 18 110/61 96 Room Air 98.1 08/12/17 07:40 Room Air 08/12/17 07:40 96 Room Air 21 08/12/17 05:21 98.4 08/12/17 04:41 Room Air 08/12/17 04:38 98.4 100 19 107/73 97 98.4 08/12/17 03:43 98.0 Intake and Output 08/12/17 08/13/17 19:00 07:00 Intake Total 240 ml Output Total 700 ml 100 ml Balance -460 ml -100 ml Intake Oral 240 ml Output Urine Total 700 ml Stool Total 100 ml Laboratory Tests 08/12/17 05:10: White Blood Count 8.0, Red Blood Count 2.91L, Hemoglobin 8.8L, Hematocrit 26.2L , Mean Corpuscular Volume 90, Mean Corpuscular Hemoglobin 30.2, Mean Corpuscular Hemoglobin Concent 33.6, Red Cell Distribution Width 17.0H, Platelet Count 299, Mean Platelet Volume 4.3L, Neutrophils (%) (Auto) 74.4, Lymphocytes (%) (Auto) 19.2L, Monocytes (%) (Auto) 2.7, Eosinophils (%) (Auto) 3.2H, Basophils (%) (Auto) 0.6, Sodium Level 135L, Potassium Level 3.8, Chloride Level 97L, Carbon Dioxide Level 33H, Anion Gap 5, Blood Urea Nitrogen 17, Creatinine 0.5L, Estimat Glomerular Filtration Rate > 60, Glucose Level 109H , Uric Acid 3.0, Calcium Level 8.6, Phosphorus Level 4.3, Magnesium Level 1.7L, Total Bilirubin 0.2, Aspartate Amino Transf (AST/SGOT) 15, Alanine Aminotransferase (ALT/SGPT) 13, Alkaline Phosphatase 135H, C-Reactive Protein, Quantitative 3.7H, Total Protein 6.7, Albumin 2.2L, Globulin 4.5, Albumin/ Globulin Ratio 0.5L Height (Feet): 5 Height (Inches): 9.00 Weight (Pounds): 128 Respiratory/Chest: decreased breath sounds Tashi Brown MD Aug 13, 2017 02:06
[2017-08-13] MEDS: Norco 5mg/325mg tab ORAL PRN ×4 (03:51→22:45)
[2017-08-13 04:17] VITALS: BP 110/65
[2017-08-13 08:00] VITALS: BP 123/70
[2017-08-13] MEDS: Docusate 100mg cap ORAL SCH ×2 (09:23→17:21)
[2017-08-13] MEDS: Heparin 5000 units/ml inj SUBQ SCH ×2 (09:29→21:05)
--- NOTE | 2017-08-13 11:10 | GI Progress Note ---
Assessment/Plan Problems: (1) Psychiatric disorder ICD Codes: F99 - Mental disorder, not otherwise specified SNOMED: 32342038, 746522282 (2) Amphetamine abuse ICD Codes: F15.10 - Other stimulant abuse, uncomplicated SNOMED: 79653989 (3) Opiate dependence ICD Codes: F11.20 - Opioid dependence, uncomplicated SNOMED: 45747154 Qualifiers: Qualified Codes: F11.20 - Opioid dependence, uncomplicated (4) Perforated abdominal viscus SNOMED: 698006829 Status: stable Status Narrative Discussed with Dr. Castro. Assessment/Plan s/p Exploratory laparotomy, partial bowel resection fu surgical recs IVFs diet adv per surgery colostomy care prn transfusions serial imaging prn pain mgmt fu labs Subjective Subjective abdominal pain Objective Last 24 Hour Vital Signs Date Time Temp Pulse Resp B/P (MAP) Pulse Ox O2 Delivery O2 Flow Rate FiO2 08/13/17 08:00 96.8 107 20 123/70 98 96.8 08/13/17 04:58 97.9 08/13/17 04:50 97.9 08/13/17 04:28 97.9 08/13/17 04:17 97.9 89 18 110/65 95 Room Air 97.9 08/13/17 03:51 97.9 08/13/17 00:11 97.9 08/13/17 00:00 98.2 101 18 116/67 94 Room Air 98.2 08/12/17 20:05 97.9 08/12/17 20:00 97.5 92 18 115/71 98 Room Air 97.5 08/12/17 17:51 97.9 08/12/17 16:02 97.9 94 18 110/58 96 Room Air 97.9 08/12/17 15:58 97.5 08/12/17 13:46 97.5 08/12/17 12:00 97.5 82 18 102/64 95 Room Air 97.5 Intake and Output 08/12/17 08/13/17 19:00 07:00 Intake Total 240 ml 240 ml Output Total 700 ml 600 ml Balance -460 ml -360 ml Intake Oral 240 ml 240 ml Output Urine Total 700 ml 500 ml Stool Total 100 ml Height (Feet): 5 Height (Inches): 9.00 Weight (Pounds): 124 General Appearance: WD/WN, no apparent distress, alert Cardiovascular: normal rate Respiratory/Chest: normal breath sounds, no respiratory distress Abdominal Exam: normal bowel sounds, non tender, soft, other - colostomy Extremities: normal range of motion, non-tender Samia Albarran N.P. Aug 13, 2017 11:10
[2017-08-13 12:00] VITALS: BP 125/63
[2017-08-13 15:49] VITALS: BP 98/59
--- NOTE | 2017-08-13 16:33 | Nephrology Progress Note ---
Assessment/Plan Problem List: (1) ARF (acute renal failure) (2) UTI (urinary tract infection) (3) Psychiatric disorder (4) Acute abdomen Assessment Status: Na now up to 135 WBCs wnl had multi abdominal drains acute renal failure- extended left colectomy due to perf transverse colostomy creation Plan Plan: low Na ... improving...work up intitiated .....likely SIADH PO Fluid Restriction DC lasix IV per charles, 07/20/17 Mag and K supplement as needed Post op ( OP 07/08/17) [facility]- 2D echo normal Ej Fx Albumin bollous monitor renal parameters K and Phos and Mag supplement as needed Subjective ROS Limited/Unobtainable: No Objective Objective Last 24 Hour Vital Signs Date Time Temp Pulse Resp B/P (MAP) Pulse Ox O2 Delivery O2 Flow Rate FiO2 08/13/17 15:49 98.1 88 18 98/59 96 98.1 08/13/17 12:00 97.7 84 20 125/63 97 97.7 08/13/17 08:00 96.8 107 20 123/70 98 96.8 08/13/17 04:58 97.9 08/13/17 04:50 97.9 08/13/17 04:28 97.9 08/13/17 04:17 97.9 89 18 110/65 95 Room Air 97.9 08/13/17 03:51 97.9 08/13/17 00:11 97.9 08/13/17 00:00 98.2 101 18 116/67 94 Room Air 98.2 08/12/17 20:05 97.9 08/12/17 20:00 97.5 92 18 115/71 98 Room Air 97.5 08/12/17 17:51 97.9 Intake and Output 08/12/17 08/13/17 19:00 07:00 Intake Total 240 ml 240 ml Output Total 700 ml 600 ml Balance -460 ml -360 ml Intake Oral 240 ml 240 ml Output Urine Total 700 ml 500 ml Stool Total 100 ml Height (Feet): 5 Height (Inches): 9.00 Weight (Pounds): 124 General Appearance: no apparent distress Objective no other change NOEMY MARK Aug 13, 2017 16:33
[2017-08-13] MEDS: DiphenhydrAMINE 50mg/ml Inj IVP PRN (18:30)
--- NOTE | 2017-08-13 19:38 | Pulmonology Progress Note ---
Assessment/Plan Problems: (1) Perforated abdominal viscus (2) ARF (acute renal failure) (3) Psychosis (4) Acute constipation (5) Amphetamine abuse Assessment/Plan symptomatic treatmen f/u wbc and clinically check lbas iv fluids pain management med/surg all reviewed dc planning Subjective ROS Limited/Unobtainable: No Constitutional: Reports: no symptoms Allergies: Coded Allergies: No Known Allergies (Unverified , 01/20/17) Objective Last 24 Hour Vital Signs Date Time Temp Pulse Resp B/P (MAP) Pulse Ox O2 Delivery O2 Flow Rate FiO2 08/13/17 19:28 Room Air 21 08/13/17 19:28 90 Room Air 21 08/13/17 15:49 98.1 88 18 98/59 96 98.1 08/13/17 12:00 97.7 84 20 125/63 97 97.7 08/13/17 08:00 96.8 107 20 123/70 98 96.8 08/13/17 04:58 97.9 08/13/17 04:50 97.9 08/13/17 04:28 97.9 08/13/17 04:17 97.9 89 18 110/65 95 Room Air 97.9 08/13/17 03:51 97.9 08/13/17 00:11 97.9 08/13/17 00:00 98.2 101 18 116/67 94 Room Air 98.2 08/12/17 20:05 97.9 08/12/17 20:00 97.5 92 18 115/71 98 Room Air 97.5 Intake and Output 08/12/17 08/13/17 19:00 07:00 Intake Total 240 ml 240 ml Output Total 700 ml 600 ml Balance -460 ml -360 ml Intake Oral 240 ml 240 ml Output Urine Total 700 ml 500 ml Stool Total 100 ml Objective General Appearance: WD/WN Lines, tubes and drains: peripheral HEENT: normocephalic, atraumatic Neck: non-tender, normal alignment Respiratory/Chest: chest wall non-tender, lungs clear Breasts: no masses Cardiovascular/Chest: normal peripheral pulses, normal rate Abdomen: normal bowel sounds, clean dressing Genitourinary/Rectal: normal genital exam, heme negative stool Extremities: normal range of motion, non-tender Skin Exam: normal pigmentation Current Medications Medications (Trade) Dose Ordered Sig/Kayy Route PRN Reason Start Time Stop Time Status Last Admin Dose Admin Acetaminophen/ Hydrocodone Bitart ([place] 5/325) 1 tab Q4H PRN ORAL Breakthrough Pain 08/11/17 11:00 08/18/17 10:59 08/13/17 17:21 Dextrose (Dextrose 50%) 25 ml STAT PRN IV HYPOGLYCEMIA 08/08/17 09:45 09/07/17 09:44 Diphenhydramine HCl (Benadryl) 25 mg Q6H PRN IVP Itching 07/25/17 17:00 08/24/17 16:59 08/13/17 18:30 Docusate Sodium (Colace) 100 mg TWICE A DAY ORAL 08/09/17 18:00 09/08/17 17:59 08/13/17 17:21 Famotidine (Pepcid) 40 mg QHS ORAL 08/08/17 21:00 09/07/17 20:59 08/12/17 20:46 Heparin Sodium (Porcine) (Heparin 5000 units/ml) 5,000 units EVERY 12 HOURS SUBQ 08/01/17 21:00 08/22/17 21:00 08/13/17 09:29 Hydromorphone HCl (Dilaudid) 2 mg Q4H PRN IVP for pain sclae 4-10 08/11/17 10:30 08/18/17 10:29 08/13/17 14:08 Ondansetron HCl (Zofran) 4 mg Q6H PRN IVP Nausea & Vomiting 08/11/17 11:00 09/10/17 10:59 08/13/17 17:42 Potassium Chloride (K-Dur) 40 meq DAILY ORAL 07/20/17 09:00 08/19/17 08:59 08/13/17 09:24 Risperidone (RisperDAL) 4 mg BEDTIME ORAL 07/23/17 21:00 08/22/17 20:59 08/12/17 20:46 Brenda Martel MD Aug 13, 2017 19:38
[2017-08-13 20:00] VITALS: BP 108/61
--- NOTE | 2017-08-13 20:12 | Infectious Diseases Prog Note ---
Assessment/Plan Assessment/Plan ASSESSMENT: The patient is a 46-year-old male with; Bowel perf w/ development of 2 Abscess (subphrenic and pelvic) Cx: E coli( ESBL) and ENTEROCOCCUS AVIUM (turcios S) and Bact Fragilis - s/p I+D x2- now almost complete resolution of abscess -CT abd/p w/ 08/02: Mostly resolved left upper quadrant and right upper quadrant fluid collections, post surgical evacuation. Minimal residual fluid as described. Appearance of the residual fluid is nonspecific as regards whether or not infected. Other postsurgical changes, as described, including the minimal residual pneumoperitoneum, surgical drain removal. 2 new fluid collections within the liver, could represent small hepatic abscesses versus noninfected acquired fluid collections, possibly related to surgical trauma. Dilated proximal small bowel, gradually narrowing to normal caliber more distally. No evidence of obstruction, as ingested contrast is seen to traverse the entirety of the GI tract. Small splenic hilar, gastric varices. This, in combination with mesenteric congestion, could indicate portal hypertension. However, no morphologic changes of the liver to suggest cirrhosis are evident. Moderate right pleural effusion, slightly decreased in size from the previous study. Trace left pleural effusion, significantly decreased in size from the previous study. Gas within the bladder. Probably related to recent instrumentation. If there is no history of recent Dickens catheterization, however , the possibility of emphysematous cystitis should be considered -s/p exploratory laparotomy, abdominal washout, evacuation of abscess, drain placement and abdominal closure 07/20; cx not received in the lab -s/p CT guided drainage APOLLO fluid collection 07/19: Aspiration and drainage of left upper quadrant collection, yielding 150 mL of carin pus. Note that the collection could only be partially evacuated, however, despite confirmation of apparent adequate position of the drain.This may indicate high viscosity of the contents; cx E. fecalis (turcios S), PREVOTELLA LOESCHEII (Aumgentin, Clinda R; Metronidazole S) s/p ex lap with left colectomy and transverse colostomy for perforated left colon, evacuation of intrabd abscess, abd washout w/ drain placement 07/09 -CT abd/p w/ 07/18: Postsurgical changes, as described, status post transverse colectomy, Jazz procedure, and placement of multiple surgical drains. Left upper quadrant intraperitoneal fluid collection, despite the presence of a surgical drain in the center of the collection. The presence of gas bubbles within rather than floating nondependently in the collection indicate that this fluid may be viscous. 2 other significant intraperitoneal collections,which do not appear to communicate, possibly loculated. Given presence of somewhat thick enhancing rim surrounding all of these, infected collections are certainly possible ( left paracolic gutter 5.8 cmx 4.3 cm x 8.3cm and R paracolic gutter, medial and inferior to tip R hepatic lobe 8cm x 6.4cm x8cm). Other than the gas within the left upper quadrant collection, previously demonstrated pneumoperitoneum has largely resolved. Left upper quadrant thick walled small bowel loops. Possibly reactive due to adjacent inflammation, enteritis is also possible. No evidence of bowel obstruction. Gallbladder wall edema versus pericholecystic fluid. -OR findings: The omentum was significantly thickened and adhesed to the small bowel and into the left lower quadrant. There was significant inflammatory process throughout the abdomen including a thickening of almost the entire peritoneal lining. The proximal portion of the jejunum was significantly thickened and had a rind of inflammatory infectious tissue on it. left transverse and descending colon, there was significant amount of thickening and significant disease process with some areas of mild ischemia noted and in the descending colon around the descending and sigmoid junction, there was a gross perforation with grossspillage of bowel contents noted in the area. there was a fluid collection/pelvic abscess, which was evacuated. There was a fluid collection in the right upper quadrant around the liver, which was evacuated and a large left upper quadrant subphrenic abscess with significant tissue rind and thickening around the stomach, spleen, peritoneum, and diaphragm in that location. CT : Evidence of perforation of hollow viscus with extensive amount of free air in the upper abdomen and some free fluid is well. Fever, SP Leukocytosis SP -07/31 Cdiff neg -07/15 Bcx Neg ?PNA, SP Rx -CXR 07/31: Improved left basilar consolidation, since 07/15/2017. Some residual atelectasis and possibly minimal residual consolidation. Decreased but persistent pleural fluid on the left. Resolved right mid and lower lung consolidation. Some residual perihilar atelectasis. New or increased small right pleural effusion. Left upper quadrant surgical drain Elevated ALP , improved -Abd US: Negative for gallstones. There is borderline gallbladder wall thickening, however. Most likely, this is reactive secondary to surrounding inflammation related to recent bowel perforation and surgery for such. However, the possibility of acalculous acute cholecystitis should be considered, and consideration for nuclear medicine hepatobiliary scanning if there is high clinical suspicion history of diarrhea, SP RAMSEY: Improved HTN COPD/asthma. Smoker. History of chronic constipation. Osteoarthritis. ? CAD/DC, hx PLAN: - Monitor pt off of AB Rx 08/10 SP IV Meropenem abx d#31 , Fluconazole # 21, Linezolid #18 , monitor pt off of AB Rx -weekly CBC/CMP --08/02 SP IV ampicillin #17 --07/21 Zosyn #4 --07/18 SP Ertapenem, PO Amoxicillin #3 --07/16 SP Cefepime #2 --07/12 SP Zosyn d# 6 --SP Rocephin d# 5 -surgery following midline wound closure needed -wound care -Trend WBC Subjective Allergies: Coded Allergies: No Known Allergies (Unverified , 01/20/17) Subjective afebrile Objective Vital Signs Last 24 Hour Vital Signs Date Time Temp Pulse Resp B/P (MAP) Pulse Ox O2 Delivery O2 Flow Rate FiO2 08/13/17 19:28 Room Air 21 08/13/17 19:28 90 Room Air 21 08/13/17 15:49 98.1 88 18 98/59 96 98.1 08/13/17 12:00 97.7 84 20 125/63 97 97.7 08/13/17 08:00 96.8 107 20 123/70 98 96.8 08/13/17 04:58 97.9 08/13/17 04:50 97.9 08/13/17 04:28 97.9 08/13/17 04:17 97.9 89 18 110/65 95 Room Air 97.9 08/13/17 03:51 97.9 08/13/17 00:11 97.9 08/13/17 00:00 98.2 101 18 116/67 94 Room Air 98.2 Height (Feet): 5 Height (Inches): 9.00 Weight (Pounds): 124 HEENT: atraumatic Respiratory/Chest: normal breath sounds Cardiovascular: normal rate Abdomen: soft, non tender Current Medications Medications (Trade) Dose Ordered Sig/Kayy Route PRN Reason Start Time Stop Time Status Last Admin Dose Admin Acetaminophen/ Hydrocodone Bitart ([place] 5/325) 1 tab Q4H PRN ORAL Breakthrough Pain 08/11/17 11:00 08/18/17 10:59 08/13/17 17:21 Dextrose (Dextrose 50%) 25 ml STAT PRN IV HYPOGLYCEMIA 08/08/17 09:45 09/07/17 09:44 Diphenhydramine HCl (Benadryl) 25 mg Q6H PRN IVP Itching 07/25/17 17:00 08/24/17 16:59 08/13/17 18:30 Docusate Sodium (Colace) 100 mg TWICE A DAY ORAL 08/09/17 18:00 09/08/17 17:59 08/13/17 17:21 Famotidine (Pepcid) 40 mg QHS ORAL 08/08/17 21:00 09/07/17 20:59 08/12/17 20:46 Heparin Sodium (Porcine) (Heparin 5000 units/ml) 5,000 units EVERY 12 HOURS SUBQ 08/01/17 21:00 08/22/17 21:00 08/13/17 09:29 Hydromorphone HCl (Dilaudid) 2 mg Q4H PRN IVP for pain sclae 4-10 08/11/17 10:30 08/18/17 10:29 08/13/17 20:07 Ondansetron HCl (Zofran) 4 mg Q6H PRN IVP Nausea & Vomiting 08/11/17 11:00 09/10/17 10:59 08/13/17 17:42 Potassium Chloride (K-Dur) 40 meq DAILY ORAL 07/20/17 09:00 08/19/17 08:59 08/13/17 09:24 Risperidone (RisperDAL) 4 mg BEDTIME ORAL 07/23/17 21:00 08/22/17 20:59 08/12/17 20:46 Rick Arvizu MD Aug 13, 2017 20:12
--- NOTE | 2017-08-13 21:44 | General Progress Note ---
Assessment/Plan Assessment/Plan Schizophrenia CPT Encephalopathy PLAN: - increase the risperidone to 4 mg at bedtime. Subjective Date patient seen: Aug 13, 2017 Allergies: Coded Allergies: No Known Allergies (Unverified , 01/20/17) Subjective the pt is calmer more organized. meds seeking Objective Last 24 Hour Vital Signs Date Time Temp Pulse Resp B/P (MAP) Pulse Ox O2 Delivery O2 Flow Rate FiO2 08/13/17 20:56 98.1 08/13/17 19:28 Room Air 21 08/13/17 19:28 90 Room Air 21 08/13/17 15:49 98.1 88 18 98/59 96 98.1 08/13/17 12:00 97.7 84 20 125/63 97 97.7 08/13/17 08:00 96.8 107 20 123/70 98 96.8 08/13/17 04:50 97.9 08/13/17 04:28 97.9 08/13/17 04:17 97.9 89 18 110/65 95 Room Air 97.9 08/13/17 03:51 97.9 08/13/17 00:11 97.9 08/13/17 00:00 98.2 101 18 116/67 94 Room Air 98.2 Intake and Output 08/12/17 08/13/17 19:00 07:00 Intake Total 240 ml 240 ml Output Total 700 ml 600 ml Balance -460 ml -360 ml Intake Oral 240 ml 240 ml Output Urine Total 700 ml 500 ml Stool Total 100 ml Height (Feet): 5 Height (Inches): 9.00 Weight (Pounds): 124 Idalia Montanez M.D. Aug 13, 2017 21:43
--- NOTE | 2017-08-13 23:31 | General Progress Note ---
Assessment/Plan Assessment/Plan #. Anemia, likely due to chronic disease. --> No occult blood. H/H stable at this time. --> Monitor and trend cbc daily. --> Anemia workup reviewed. --> Iron 24, TIBC 173, Ferritin 513, B12 424, Folate 9.5, TSH 4.2 --> Does not need blood transfusion unless symptomatic or hgb <7 #. Perforation of viscus and pneumoperitoneum, currently improving. --> Continue to closely monitor. Peripheral smear reviewed as well. --> exam with peritonitis generalized but with focus in LLQ. #. Rhabdomyolysis, currently improved with administration of IV fluids. #. Hypoalbuminemia, likely secondary to decreased p.o. intake, monitor malnutrition. --> Due to elevated CPK of 1543, resolved at this time. #. Pneumoperitoneum. #. Pleuritic chest pain. #. Chronic constipation. #. Schizophrenia, paranoid type. --> On risperidone. #. Smoker. #. Amphetamine use. #. Perforated left colon with prolonged inflammatory reaction, gross spillage, bowel ischemia. #. Wound Care. #. Leukocytosis. --> Wbc count downtrended from yesterday and resolved at this time. Subjective Date patient seen: Aug 13, 2017 Constitutional: Denies: no symptoms, chills, diaphoresis, fever, malaise, weakness, other HEENT: Denies: no symptoms, eye pain, blurred vision, tearing, double vision, ear pain, ear discharge, nose pain, nose congestion, throat pain, throat swelling, mouth pain, mouth swelling, other Cardiovascular: Denies: no symptoms, chest pain, edema, irregular heart rate, lightheadedness, palpitations, syncope, other Respiratory: Denies: no symptoms, cough, orthopnea, shortness of breath, SOB with excertion, SOB at rest, sputum, stridor, wheezing, other Gastrointestinal/Abdominal: Denies: no symptoms, abdomen distended, abdominal pain, black stools, tarry stools, blood in stool, constipated, diarrhea, difficulty swallowing, nausea, poor appetite, poor fluid intake, rectal bleeding , vomiting, other Genitourinary: Denies: no symptoms, burning, discharge, frequency, flank pain, hematuria, incontinence, pain, urgency, other Neurologic/Psychiatric: Denies: no symptoms, anxiety, depressed, emotional problems, headache, numbness, paresthesia, pre-existing deficit, seizure, tingling, tremors, weakness, other Hematologic/Lymphatic: Reports: anemia Allergies: Coded Allergies: No Known Allergies (Unverified , 01/20/17) Subjective On pain management. Confused. No fever. Objective Last 24 Hour Vital Signs Date Time Temp Pulse Resp B/P (MAP) Pulse Ox O2 Delivery O2 Flow Rate FiO2 08/13/17 22:45 98.1 08/13/17 20:56 98.1 08/13/17 20:00 98.1 98 20 108/61 97 Room Air 98.1 08/13/17 19:28 Room Air 21 08/13/17 19:28 90 Room Air 21 08/13/17 15:49 98.1 88 18 98/59 96 98.1 08/13/17 12:00 97.7 84 20 125/63 97 97.7 08/13/17 08:00 96.8 107 20 123/70 98 96.8 08/13/17 04:50 97.9 08/13/17 04:28 97.9 08/13/17 04:17 97.9 89 18 110/65 95 Room Air 97.9 08/13/17 03:51 97.9 08/13/17 00:11 97.9 08/13/17 00:00 98.2 101 18 116/67 94 Room Air 98.2 Intake and Output 08/12/17 08/13/17 19:00 07:00 Intake Total 240 ml 240 ml Output Total 700 ml 600 ml Balance -460 ml -360 ml Intake Oral 240 ml 240 ml Output Urine Total 700 ml 500 ml Stool Total 100 ml Height (Feet): 5 Height (Inches): 9.00 Weight (Pounds): 124 Respiratory/Chest: decreased breath sounds Tashi Brown MD Aug 13, 2017 23:31
[2017-08-14] VITALS (7 sets, daily range): BP systolic 100–116; BP diastolic 56–78
[2017-08-14] MEDS: DiphenhydrAMINE 50mg/ml Inj IVP PRN ×3 (00:48→18:20)
[2017-08-14] MEDS: Docusate 100mg cap ORAL SCH ×2 (08:50→17:15)
[2017-08-14] MEDS: Heparin 5000 units/ml inj SUBQ SCH ×2 (08:57→21:50)
--- NOTE | 2017-08-14 10:48 | Infectious Diseases Prog Note ---
Assessment/Plan Assessment/Plan ASSESSMENT: The patient is a 46-year-old male with; Bowel perf w/ development of 2 Abscess (subphrenic and pelvic) Cx: E coli( ESBL) and ENTEROCOCCUS AVIUM (turcios S) and Bact Fragilis - s/p I+D x2- , SP resolution of abscess -CT abd/p w/ 08/02: Mostly resolved left upper quadrant and right upper quadrant fluid collections, post surgical evacuation. Minimal residual fluid as described. Appearance of the residual fluid is nonspecific as regards whether or not infected. Other postsurgical changes, as described, including the minimal residual pneumoperitoneum, surgical drain removal. 2 new fluid collections within the liver, could represent small hepatic abscesses versus noninfected acquired fluid collections, possibly related to surgical trauma. Dilated proximal small bowel, gradually narrowing to normal caliber more distally. No evidence of obstruction, as ingested contrast is seen to traverse the entirety of the GI tract. Small splenic hilar, gastric varices. This, in combination with mesenteric congestion, could indicate portal hypertension. However, no morphologic changes of the liver to suggest cirrhosis are evident. Moderate right pleural effusion, slightly decreased in size from the previous study. Trace left pleural effusion, significantly decreased in size from the previous study. Gas within the bladder. Probably related to recent instrumentation. If there is no history of recent Dickens catheterization, however , the possibility of emphysematous cystitis should be considered -s/p exploratory laparotomy, abdominal washout, evacuation of abscess, drain placement and abdominal closure 07/20; cx not received in the lab -s/p CT guided drainage APOLLO fluid collection 07/19: Aspiration and drainage of left upper quadrant collection, yielding 150 mL of carin pus. Note that the collection could only be partially evacuated, however, despite confirmation of apparent adequate position of the drain.This may indicate high viscosity of the contents; cx E. fecalis (turcios S), PREVOTELLA LOESCHEII (Aumgentin, Clinda R; Metronidazole S) s/p ex lap with left colectomy and transverse colostomy for perforated left colon, evacuation of intrabd abscess, abd washout w/ drain placement 07/09 -CT abd/p w/ 07/18: Postsurgical changes, as described, status post transverse colectomy, Jazz procedure, and placement of multiple surgical drains. Left upper quadrant intraperitoneal fluid collection, despite the presence of a surgical drain in the center of the collection. The presence of gas bubbles within rather than floating nondependently in the collection indicate that this fluid may be viscous. 2 other significant intraperitoneal collections,which do not appear to communicate, possibly loculated. Given presence of somewhat thick enhancing rim surrounding all of these, infected collections are certainly possible ( left paracolic gutter 5.8 cmx 4.3 cm x 8.3cm and R paracolic gutter, medial and inferior to tip R hepatic lobe 8cm x 6.4cm x8cm). Other than the gas within the left upper quadrant collection, previously demonstrated pneumoperitoneum has largely resolved. Left upper quadrant thick walled small bowel loops. Possibly reactive due to adjacent inflammation, enteritis is also possible. No evidence of bowel obstruction. Gallbladder wall edema versus pericholecystic fluid. -OR findings: The omentum was significantly thickened and adhesed to the small bowel and into the left lower quadrant. There was significant inflammatory process throughout the abdomen including a thickening of almost the entire peritoneal lining. The proximal portion of the jejunum was significantly thickened and had a rind of inflammatory infectious tissue on it. left transverse and descending colon, there was significant amount of thickening and significant disease process with some areas of mild ischemia noted and in the descending colon around the descending and sigmoid junction, there was a gross perforation with grossspillage of bowel contents noted in the area. there was a fluid collection/pelvic abscess, which was evacuated. There was a fluid collection in the right upper quadrant around the liver, which was evacuated and a large left upper quadrant subphrenic abscess with significant tissue rind and thickening around the stomach, spleen, peritoneum, and diaphragm in that location. CT : Evidence of perforation of hollow viscus with extensive amount of free air in the upper abdomen and some free fluid is well. Fever, SP Leukocytosis SP -07/31 Cdiff neg -07/15 Bcx Neg ?PNA, SP Rx -CXR 07/31: Improved left basilar consolidation, since 07/15/2017. Some residual atelectasis and possibly minimal residual consolidation. Decreased but persistent pleural fluid on the left. Resolved right mid and lower lung consolidation. Some residual perihilar atelectasis. New or increased small right pleural effusion. Left upper quadrant surgical drain Elevated ALP , improved -Abd US: Negative for gallstones. There is borderline gallbladder wall thickening, however. Most likely, this is reactive secondary to surrounding inflammation related to recent bowel perforation and surgery for such. However, the possibility of acalculous acute cholecystitis should be considered, and consideration for nuclear medicine hepatobiliary scanning if there is high clinical suspicion history of diarrhea, SP RAMSEY: Improved HTN COPD/asthma. Smoker. History of chronic constipation. Osteoarthritis. ? CAD/MN, hx PLAN: - Monitor pt off of AB Rx 08/10 SP IV Meropenem abx d#31 , Fluconazole # 21, Linezolid #18 , monitor pt off of AB Rx -weekly CBC/CMP --08/02 SP IV ampicillin #17 --07/21 Zosyn #4 --07/18 SP Ertapenem, PO Amoxicillin #3 --07/16 SP Cefepime #2 --07/12 SP Zosyn d# 6 --SP Rocephin d# 5 -surgery following midline wound closure needed -wound care -Trend WBC Subjective Allergies: Coded Allergies: No Known Allergies (Unverified , 01/20/17) Subjective afebrile Objective Vital Signs Last 24 Hour Vital Signs Date Time Temp Pulse Resp B/P (MAP) Pulse Ox O2 Delivery O2 Flow Rate FiO2 08/14/17 08:00 98.1 105 20 104/67 95 98.1 08/14/17 05:27 98.1 08/14/17 04:57 98.1 08/14/17 04:00 98.1 92 20 101/64 97 Room Air 98.1 08/14/17 00:48 98.2 08/14/17 00:00 98.2 103 18 109/71 97 Room Air 98.2 08/13/17 23:44 98.1 08/13/17 22:45 98.1 08/13/17 20:00 98.1 98 20 108/61 97 Room Air 98.1 08/13/17 19:28 Room Air 21 08/13/17 19:28 90 Room Air 21 08/13/17 15:49 98.1 88 18 98/59 96 98.1 08/13/17 12:00 97.7 84 20 125/63 97 97.7 Height (Feet): 5 Height (Inches): 9.00 Weight (Pounds): 103 HEENT: anicteric Respiratory/Chest: normal breath sounds Cardiovascular: regularly irregular Abdomen: no organomegaly Current Medications Medications (Trade) Dose Ordered Sig/Kayy Route PRN Reason Start Time Stop Time Status Last Admin Dose Admin Acetaminophen/ Hydrocodone Bitart ([place] 5/325) 1 tab Q4H PRN ORAL Breakthrough Pain 08/11/17 11:00 08/18/17 10:59 08/13/17 22:45 Dextrose (Dextrose 50%) 25 ml STAT PRN IV HYPOGLYCEMIA 08/08/17 09:45 09/07/17 09:44 Diphenhydramine HCl (Benadryl) 25 mg Q6H PRN IVP Itching 07/25/17 17:00 08/24/17 16:59 08/14/17 10:26 Docusate Sodium (Colace) 100 mg TWICE A DAY ORAL 08/09/17 18:00 09/08/17 17:59 08/14/17 08:50 Famotidine (Pepcid) 40 mg QHS ORAL 08/08/17 21:00 09/07/17 20:59 08/13/17 21:04 Heparin Sodium (Porcine) (Heparin 5000 units/ml) 5,000 units EVERY 12 HOURS SUBQ 08/01/17 21:00 08/22/17 21:00 08/14/17 08:57 Hydromorphone HCl (Dilaudid) 2 mg Q4H PRN IVP for pain sclae -08/11/17 10:30 08/18/17 10:29 08/14/17 08:50 Ondansetron HCl (Zofran) 4 mg Q6H PRN IVP Nausea & Vomiting 08/11/17 11:00 09/10/17 10:59 08/14/17 08:50 Potassium Chloride (K-Dur) 40 meq DAILY ORAL 07/20/17 09:00 08/19/17 08:59 08/14/17 08:49 Risperidone (RisperDAL) 4 mg BEDTIME ORAL 07/23/17 21:00 08/22/17 20:59 08/13/17 21:04 Rick Arvizu MD Aug 14, 2017 10:48
--- NOTE | 2017-08-14 13:45 | Nephrology Progress Note ---
Assessment/Plan Problem List: (1) ARF (acute renal failure) (2) UTI (urinary tract infection) (3) Psychiatric disorder (4) Acute abdomen Assessment Status: no labs today- Na now up to 135 WBCs wnl had multi abdominal drains acute renal failure- extended left colectomy due to perf transverse colostomy creation Plan Plan: low Na ... improving...work up intitiated .....likely SIADH PO Fluid Restriction DC lasix IV per charles, 07/20/17 Mag and K supplement as needed Post op ( OP 07/08/17) Dickens- 2D echo normal Ej Fx Albumin bollous monitor renal parameters K and Phos and Mag supplement as needed Subjective ROS Limited/Unobtainable: No Constitutional: Reports: malaise Objective Objective Last 24 Hour Vital Signs Date Time Temp Pulse Resp B/P (MAP) Pulse Ox O2 Delivery O2 Flow Rate FiO2 08/14/17 11:40 98.4 96 18 103/74 96 98.4 08/14/17 08:00 98.1 105 20 104/67 95 98.1 08/14/17 05:27 98.1 08/14/17 04:57 98.1 08/14/17 04:00 98.1 92 20 101/64 97 Room Air 98.1 08/14/17 00:48 98.2 08/14/17 00:00 98.2 103 18 109/71 97 Room Air 98.2 08/13/17 23:44 98.1 08/13/17 22:45 98.1 08/13/17 20:00 98.1 98 20 108/61 97 Room Air 98.1 08/13/17 19:28 Room Air 21 08/13/17 19:28 90 Room Air 21 08/13/17 15:49 98.1 88 18 98/59 96 98.1 Intake and Output 08/13/17 08/14/17 19:00 07:00 Intake Total 360 ml 400 ml Output Total 1250 ml 525 ml Balance -890 ml -125 ml Intake Oral 360 ml 400 ml Output Urine Total 1250 ml 250 ml Stool Total 275 ml Height (Feet): 5 Height (Inches): 9.00 Weight (Pounds): 103 General Appearance: no apparent distress Objective no other change NOEMY MARK Aug 14, 2017 13:45
--- NOTE | 2017-08-14 14:43 | GI Progress Note ---
Assessment/Plan Problems: (1) Psychiatric disorder ICD Codes: F99 - Mental disorder, not otherwise specified SNOMED: 88097083, 368192897 (2) Amphetamine abuse ICD Codes: F15.10 - Other stimulant abuse, uncomplicated SNOMED: 64942955 (3) Opiate dependence ICD Codes: F11.20 - Opioid dependence, uncomplicated SNOMED: 45230946 Qualifiers: Qualified Codes: F11.20 - Opioid dependence, uncomplicated (4) Perforated abdominal viscus SNOMED: 806853821 Status: progressing Status Narrative Discussed with Dr. Castro. Assessment/Plan s/p Exploratory laparotomy, partial bowel resection fu surgical recs IVFs diet adv per surgery colostomy care prn transfusions serial imaging prn pain mgmt fu labs Subjective Subjective abdominal pain Objective Last 24 Hour Vital Signs Date Time Temp Pulse Resp B/P (MAP) Pulse Ox O2 Delivery O2 Flow Rate FiO2 08/14/17 11:40 98.4 96 18 103/74 96 98.4 08/14/17 08:00 98.1 105 20 104/67 95 98.1 08/14/17 05:27 98.1 08/14/17 04:57 98.1 08/14/17 04:00 98.1 92 20 101/64 97 Room Air 98.1 08/14/17 00:48 98.2 08/14/17 00:00 98.2 103 18 109/71 97 Room Air 98.2 08/13/17 23:44 98.1 08/13/17 22:45 98.1 08/13/17 20:00 98.1 98 20 108/61 97 Room Air 98.1 08/13/17 19:28 Room Air 21 08/13/17 19:28 90 Room Air 21 08/13/17 15:49 98.1 88 18 98/59 96 98.1 Intake and Output 08/13/17 08/14/17 19:00 07:00 Intake Total 360 ml 400 ml Output Total 1250 ml 525 ml Balance -890 ml -125 ml Intake Oral 360 ml 400 ml Output Urine Total 1250 ml 250 ml Stool Total 275 ml Height (Feet): 5 Height (Inches): 9.00 Weight (Pounds): 103 General Appearance: WD/WN, no apparent distress, alert Cardiovascular: normal rate Respiratory/Chest: normal breath sounds, no respiratory distress Abdominal Exam: normal bowel sounds, non tender, soft, other - colostomy Extremities: normal range of motion, non-tender Samia Albarran N.P. Aug 14, 2017 14:43
--- NOTE | 2017-08-14 18:30 | General Progress Note ---
Assessment/Plan Assessment/Plan Schizophrenia CPT Encephalopathy PLAN: - increase the risperidone to 4 mg at bedtime. Subjective Date patient seen: Aug 14, 2017 Neurologic/Psychiatric: Reports: anxiety, depressed, emotional problems Allergies: Coded Allergies: No Known Allergies (Unverified , 01/20/17) Subjective the pt is calmer more organized. meds seeking Objective Last 24 Hour Vital Signs Date Time Temp Pulse Resp B/P (MAP) Pulse Ox O2 Delivery O2 Flow Rate FiO2 08/14/17 15:44 98.6 90 18 100/56 94 98.6 08/14/17 11:40 98.4 96 18 103/74 96 98.4 08/14/17 08:00 98.1 105 20 104/67 95 98.1 08/14/17 05:27 98.1 08/14/17 04:57 98.1 08/14/17 04:00 98.1 92 20 101/64 97 Room Air 98.1 08/14/17 00:48 98.2 08/14/17 00:00 98.2 103 18 109/71 97 Room Air 98.2 08/13/17 23:44 98.1 08/13/17 22:45 98.1 08/13/17 20:00 98.1 98 20 108/61 97 Room Air 98.1 08/13/17 19:28 Room Air 21 08/13/17 19:28 90 Room Air 21 Intake and Output 08/13/17 08/14/17 19:00 07:00 Intake Total 360 ml 400 ml Output Total 1250 ml 525 ml Balance -890 ml -125 ml Intake Oral 360 ml 400 ml Output Urine Total 1250 ml 250 ml Stool Total 275 ml Height (Feet): 5 Height (Inches): 9.00 Weight (Pounds): 103 Idalia Montanez M.D. Aug 14, 2017 18:30
--- NOTE | 2017-08-14 20:07 | Pulmonology Progress Note ---
Assessment/Plan Problems: (1) Perforated abdominal viscus (2) ARF (acute renal failure) (3) Psychosis (4) Acute constipation (5) Amphetamine abuse Assessment/Plan symptomatic treatmen f/u wbc and clinically check lbas iv fluids pain management med/surg all reviewed dc planning Subjective ROS Limited/Unobtainable: No Constitutional: Reports: no symptoms HEENT: Repors: no symptoms Respiratory: Reports: no symptoms Allergies: Coded Allergies: No Known Allergies (Unverified , 01/20/17) Objective Last 24 Hour Vital Signs Date Time Temp Pulse Resp B/P (MAP) Pulse Ox O2 Delivery O2 Flow Rate FiO2 08/14/17 15:44 98.6 90 18 100/56 94 98.6 08/14/17 11:40 98.4 96 18 103/74 96 98.4 08/14/17 08:00 98.1 105 20 104/67 95 98.1 08/14/17 05:27 98.1 08/14/17 04:57 98.1 08/14/17 04:00 98.1 92 20 101/64 97 Room Air 98.1 08/14/17 00:48 98.2 08/14/17 00:00 98.2 103 18 109/71 97 Room Air 98.2 08/13/17 23:44 98.1 08/13/17 22:45 98.1 Intake and Output 08/13/17 08/14/17 19:00 07:00 Intake Total 360 ml 400 ml Output Total 1250 ml 525 ml Balance -890 ml -125 ml Intake Oral 360 ml 400 ml Output Urine Total 1250 ml 250 ml Stool Total 275 ml Objective General Appearance: WD/WN Lines, tubes and drains: peripheral HEENT: normocephalic, atraumatic Neck: non-tender, normal alignment Respiratory/Chest: chest wall non-tender, lungs clear Breasts: no masses Cardiovascular/Chest: normal peripheral pulses, normal rate Abdomen: normal bowel sounds, clean dressing Genitourinary/Rectal: normal genital exam, heme negative stool Extremities: normal range of motion, non-tender Skin Exam: normal pigmentation Current Medications Medications (Trade) Dose Ordered Sig/Kayy Route PRN Reason Start Time Stop Time Status Last Admin Dose Admin Acetaminophen/ Hydrocodone Bitart ([place] 5/325) 1 tab Q4H PRN ORAL Breakthrough Pain 08/11/17 11:00 08/18/17 10:59 08/13/17 22:45 Dextrose (Dextrose 50%) 25 ml STAT PRN IV HYPOGLYCEMIA 08/08/17 09:45 09/07/17 09:44 Diphenhydramine HCl (Benadryl) 25 mg Q6H PRN IVP Itching 07/25/17 17:00 08/24/17 16:59 08/14/17 18:20 Docusate Sodium (Colace) 100 mg TWICE A DAY ORAL 08/09/17 18:00 09/08/17 17:59 08/14/17 17:15 Famotidine (Pepcid) 40 mg QHS ORAL 08/08/17 21:00 09/07/17 20:59 08/13/17 21:04 Heparin Sodium (Porcine) (Heparin 5000 units/ml) 5,000 units EVERY 12 HOURS SUBQ 08/01/17 21:00 08/22/17 21:00 08/14/17 08:57 Hydromorphone HCl (Dilaudid) 2 mg Q4H PRN IVP for pain sclae 4-08/11/17 10:30 08/18/17 10:29 08/14/17 17:15 Ondansetron HCl (Zofran) 4 mg Q6H PRN IVP Nausea & Vomiting 08/11/17 11:00 09/10/17 10:59 08/14/17 17:15 Potassium Chloride (K-Dur) 40 meq DAILY ORAL 07/20/17 09:00 08/19/17 08:59 08/14/17 08:49 Risperidone (RisperDAL) 4 mg BEDTIME ORAL 07/23/17 21:00 08/22/17 20:59 08/13/17 21:04 Brenda Martel MD Aug 14, 2017 20:07
--- NOTE | 2017-08-14 23:56 | General Progress Note ---
Assessment/Plan Assessment/Plan #. Anemia, likely due to chronic disease. --> No occult blood. H/H stable at this time. --> Monitor and trend cbc daily. --> Anemia workup reviewed. --> Iron 24, TIBC 173, Ferritin 513, B12 424, Folate 9.5, TSH 4.2 --> Does not need blood transfusion unless symptomatic or hgb <7 #. Perforation of viscus and pneumoperitoneum, currently improving. --> Continue to closely monitor. Peripheral smear reviewed as well. --> exam with peritonitis generalized but with focus in LLQ. #. Rhabdomyolysis, currently improved with administration of IV fluids. #. Hypoalbuminemia, likely secondary to decreased p.o. intake, monitor malnutrition. --> Due to elevated CPK of 1543, resolved at this time. #. Pneumoperitoneum. #. Pleuritic chest pain. On pain management. #. Chronic constipation. #. Schizophrenia, paranoid type. --> On risperidone. #. Smoker. #. Amphetamine use. #. Perforated left colon with prolonged inflammatory reaction, gross spillage, bowel ischemia. #. Wound Care. #. Leukocytosis. --> Wbc count downtrended from yesterday and resolved at this time. #. Discharge planning. Subjective Date patient seen: Aug 14, 2017 Constitutional: Denies: no symptoms, chills, diaphoresis, fever, malaise, weakness, other HEENT: Denies: no symptoms, eye pain, blurred vision, tearing, double vision, ear pain, ear discharge, nose pain, nose congestion, throat pain, throat swelling, mouth pain, mouth swelling, other Cardiovascular: Denies: no symptoms, chest pain, edema, irregular heart rate, lightheadedness, palpitations, syncope, other Respiratory: Denies: no symptoms, cough, orthopnea, shortness of breath, SOB with excertion, SOB at rest, sputum, stridor, wheezing, other Gastrointestinal/Abdominal: Denies: no symptoms, abdomen distended, abdominal pain, black stools, tarry stools, blood in stool, constipated, diarrhea, difficulty swallowing, nausea, poor appetite, poor fluid intake, rectal bleeding , vomiting, other Genitourinary: Denies: no symptoms, burning, discharge, frequency, flank pain, hematuria, incontinence, pain, urgency, other Neurologic/Psychiatric: Denies: no symptoms, anxiety, depressed, emotional problems, headache, numbness, paresthesia, pre-existing deficit, seizure, tingling, tremors, weakness, other Hematologic/Lymphatic: Reports: anemia Allergies: Coded Allergies: No Known Allergies (Unverified , 01/20/17) Subjective On pain management. Pending placement. No fever or chills. Objective Last 24 Hour Vital Signs Date Time Temp Pulse Resp B/P (MAP) Pulse Ox O2 Delivery O2 Flow Rate FiO2 08/14/17 22:14 97.5 08/14/17 21:44 97.5 08/14/17 20:00 97.5 106 18 116/78 100 97.5 08/14/17 15:44 98.6 90 18 100/56 94 98.6 08/14/17 11:40 98.4 96 18 103/74 96 98.4 08/14/17 08:00 98.1 105 20 104/67 95 98.1 08/14/17 04:57 98.1 08/14/17 04:00 98.1 92 20 101/64 97 Room Air 98.1 08/14/17 00:48 98.2 08/14/17 00:00 98.2 103 18 109/71 97 Room Air 98.2 Intake and Output 08/13/17 08/14/17 19:00 07:00 Intake Total 360 ml 400 ml Output Total 1250 ml 525 ml Balance -890 ml -125 ml Intake Oral 360 ml 400 ml Output Urine Total 1250 ml 250 ml Stool Total 275 ml Height (Feet): 5 Height (Inches): 9.00 Weight (Pounds): 103 General Appearance: no apparent distress Tashi Brown MD Aug 14, 2017 23:56
[2017-08-15 04:00] VITALS: BP 106/69
[2017-08-15] MEDS: DiphenhydrAMINE 50mg/ml Inj IVP PRN ×3 (04:09→19:50)
[2017-08-15 08:00] VITALS: BP 118/68
[2017-08-15] MEDS: Docusate 100mg cap ORAL SCH ×2 (08:25→17:37)
[2017-08-15] MEDS: Heparin 5000 units/ml inj SUBQ SCH ×2 (08:30→19:56)
[2017-08-15 09:12] LABS: ALANINE AMINOTRANSFERASE 14 U/L (12-78); ALBUMIN 2.4 G/DL (3.4-5.0); ALBUMIN/GLOBULIN RATIO 0.5 (1.0-2.7); ALKALINE PHOSPHATASE 130 U/L (46-116); ANION GAP 6 mmol/L (5-15); ASPARTATE AMINO TRANSFERASE 13 U/L (15-37); BILIRUBIN,TOTAL 0.2 MG/DL (0.2-1.0); BLOOD UREA NITROGEN 15 mg/dL (7-18); CALCIUM 8.7 MG/DL (8.5-10.1); CARBON DIOXIDE 32 MMOL/L (21-32); CHLORIDE 97 MMOL/L (98-107); CREATININE 0.6 MG/DL (0.55-1.30); PHOSPHORUS 4.7 MG/DL (2.5-4.9); POTASSIUM 3.8 MMOL/L (3.5-5.1); SODIUM 135 MMOL/L (136-145)
--- NOTE | 2017-08-15 10:45 | GI Progress Note ---
Assessment/Plan Problems: (1) Psychiatric disorder ICD Codes: F99 - Mental disorder, not otherwise specified SNOMED: 28330933, 880848118 (2) Amphetamine abuse ICD Codes: F15.10 - Other stimulant abuse, uncomplicated SNOMED: 72234805 (3) Opiate dependence ICD Codes: F11.20 - Opioid dependence, uncomplicated SNOMED: 05515135 Qualifiers: Qualified Codes: F11.20 - Opioid dependence, uncomplicated (4) Perforated abdominal viscus SNOMED: 618786055 Status: stable Status Narrative Discussed with Dr. Castro. Assessment/Plan s/p Exploratory laparotomy, partial bowel resection fu surgical recs IVFs diet adv per surgery colostomy care prn transfusions serial imaging prn pain mgmt fu labs Subjective Subjective abdominal pain Objective Last 24 Hour Vital Signs Date Time Temp Pulse Resp B/P (MAP) Pulse Ox O2 Delivery O2 Flow Rate FiO2 08/15/17 08:00 97.2 76 18 118/68 96 97.2 08/15/17 04:00 97.9 88 18 106/69 98 97.9 08/15/17 02:55 98.4 08/15/17 02:25 98.4 08/14/17 23:55 98.4 99 18 105/68 96 98.4 08/14/17 21:44 97.5 08/14/17 20:00 97.5 106 18 116/78 100 97.5 08/14/17 19:30 92 Room Air 21 08/14/17 19:30 Room Air 21 08/14/17 15:44 98.6 90 18 100/56 94 98.6 08/14/17 11:40 98.4 96 18 103/74 96 98.4 Intake and Output 08/14/17 08/15/17 19:00 07:00 Intake Total 480 ml 375 ml Output Total 1200 ml 425 ml Balance -720 ml -50 ml Intake Oral 480 ml 375 ml Output Urine Total 1200 ml 425 ml Laboratory Tests Test 08/15/17 08:00 Sodium Level 135 MMOL/L (136-145) L Potassium Level 3.8 MMOL/L (3.5-5.1) Chloride Level 97 MMOL/L (98-107) L Carbon Dioxide Level 32 MMOL/L (21-32) Anion Gap 6 mmol/L (5-15) Blood Urea Nitrogen 15 mg/dL (7-18) Creatinine 0.6 MG/DL (0.55-1.30) Estimat Glomerular Filtration Rate > 60 mL/min (>60) Glucose Level 108 MG/DL (74-106) H Osmolality 290 mOsm/kg (297-317) L Uric Acid 3.4 MG/DL (2.6-7.2) Calcium Level 8.7 MG/DL (8.5-10.1) Phosphorus Level 4.7 MG/DL (2.5-4.9) Magnesium Level 1.6 MG/DL (1.8-2.4) L Total Bilirubin 0.2 MG/DL (0.2-1.0) Aspartate Amino Transf (AST/SGOT) 13 U/L (15-37) L Alanine Aminotransferase (ALT/SGPT) 14 U/L (12-78) Alkaline Phosphatase 130 U/L (46-116) H Total Protein 7.0 G/DL (6.4-8.2) Albumin 2.4 G/DL (3.4-5.0) L Globulin 4.6 g/dL Albumin/Globulin Ratio 0.5 (1.0-2.7) L Height (Feet): 5 Height (Inches): 9.00 Weight (Pounds): 110 General Appearance: WD/WN, no apparent distress, alert, thin Cardiovascular: normal rate Respiratory/Chest: normal breath sounds, no respiratory distress Abdominal Exam: normal bowel sounds, non tender, soft, other - colostomy Extremities: normal range of motion, non-tender Samia Albarran N.P. Aug 15, 2017 10:45
--- NOTE | 2017-08-15 11:48 | Nephrology Progress Note ---
Assessment/Plan Problem List: (1) ARF (acute renal failure) (2) UTI (urinary tract infection) (3) Psychiatric disorder (4) Acute abdomen Assessment Status: Na now up to 135 WBCs wnl had multi abdominal drains acute renal failure- extended left colectomy due to perf transverse colostomy creation Plan Plan: low Na ... improving...work up intitiated .....likely SIADH PO Fluid Restriction DC lasix IV per charles, 07/20/17 Mag and K supplement as needed Post op ( OP 07/08/17) Dickens- 2D echo normal Ej Fx Albumin bollous monitor renal parameters K and Phos and Mag supplement as needed Subjective ROS Limited/Unobtainable: No Constitutional: Reports: malaise Objective Objective Last 24 Hour Vital Signs Date Time Temp Pulse Resp B/P (MAP) Pulse Ox O2 Delivery O2 Flow Rate FiO2 08/15/17 08:00 97.2 76 18 118/68 96 97.2 08/15/17 04:00 97.9 88 18 106/69 98 97.9 08/15/17 02:55 98.4 08/15/17 02:25 98.4 08/14/17 23:55 98.4 99 18 105/68 96 98.4 08/14/17 21:44 97.5 08/14/17 20:00 97.5 106 18 116/78 100 97.5 08/14/17 19:30 92 Room Air 21 08/14/17 19:30 Room Air 21 08/14/17 15:44 98.6 90 18 100/56 94 98.6 Intake and Output 08/14/17 08/15/17 19:00 07:00 Intake Total 480 ml 375 ml Output Total 1200 ml 425 ml Balance -720 ml -50 ml Intake Oral 480 ml 375 ml Output Urine Total 1200 ml 425 ml Laboratory Tests 08/15/17 08:00: Sodium Level 135L, Potassium Level 3.8, Chloride Level 97L, Carbon Dioxide Level 32, Anion Gap 6, Blood Urea Nitrogen 15, Creatinine 0.6, Estimat Glomerular Filtration Rate > 60, Glucose Level 108H, Osmolality 290L, Uric Acid 3.4, Calcium Level 8.7, Phosphorus Level 4.7, Magnesium Level 1.6L, Total Bilirubin 0.2, Aspartate Amino Transf (AST/SGOT) 13L, Alanine Aminotransferase ( ALT/SGPT) 14, Alkaline Phosphatase 130H, Total Protein 7.0, Albumin 2.4L, Globulin 4.6, Albumin/Globulin Ratio 0.5L Height (Feet): 5 Height (Inches): 9.00 Weight (Pounds): 110 General Appearance: no apparent distress Objective no other change NOEMY MARK Aug 15, 2017 11:48
[2017-08-15 12:00] VITALS: BP 111/62
[2017-08-15] MEDS: Norco 5mg/325mg tab ORAL PRN (15:54)
--- NOTE | 2017-08-15 15:54 | General Progress Note ---
Assessment/Plan Assessment/Plan Schizophrenia CPT Encephalopathy PLAN: - increase the risperidone to 4 mg at bedtime. Subjective Date patient seen: Aug 15, 2017 Neurologic/Psychiatric: Reports: anxiety, depressed Allergies: Coded Allergies: No Known Allergies (Unverified , 01/20/17) Subjective the pt is calmer more organized. meds seeking Objective Last 24 Hour Vital Signs Date Time Temp Pulse Resp B/P (MAP) Pulse Ox O2 Delivery O2 Flow Rate FiO2 08/15/17 12:00 98.1 69 17 111/62 96 98.1 08/15/17 08:00 97.2 76 18 118/68 96 97.2 08/15/17 04:00 97.9 88 18 106/69 98 97.9 08/15/17 02:55 98.4 08/15/17 02:25 98.4 08/14/17 23:55 98.4 99 18 105/68 96 98.4 08/14/17 21:44 97.5 08/14/17 20:00 97.5 106 18 116/78 100 97.5 08/14/17 19:30 92 Room Air 21 08/14/17 19:30 Room Air 21 Intake and Output 08/14/17 08/15/17 19:00 07:00 Intake Total 480 ml 375 ml Output Total 1200 ml 425 ml Balance -720 ml -50 ml Intake Oral 480 ml 375 ml Output Urine Total 1200 ml 425 ml Laboratory Tests 08/15/17 08:00: Sodium Level 135L, Potassium Level 3.8, Chloride Level 97L, Carbon Dioxide Level 32, Anion Gap 6, Blood Urea Nitrogen 15, Creatinine 0.6, Estimat Glomerular Filtration Rate > 60, Glucose Level 108H, Osmolality 290L, Uric Acid 3.4, Calcium Level 8.7, Phosphorus Level 4.7, Magnesium Level 1.6L, Total Bilirubin 0.2, Aspartate Amino Transf (AST/SGOT) 13L, Alanine Aminotransferase ( ALT/SGPT) 14, Alkaline Phosphatase 130H, Total Protein 7.0, Albumin 2.4L, Globulin 4.6, Albumin/Globulin Ratio 0.5L Height (Feet): 5 Height (Inches): 9.00 Weight (Pounds): 110 Idalia Montanez M.D. Aug 15, 2017 15:54
[2017-08-15 16:00] VITALS: BP 107/73
--- NOTE | 2017-08-15 18:26 | Infectious Diseases Prog Note ---
Assessment/Plan Assessment/Plan ASSESSMENT: The patient is a 46-year-old male with; Bowel perf w/ development of 2 Abscess (subphrenic and pelvic) Cx: E coli( ESBL) and ENTEROCOCCUS AVIUM (turcios S) and Bact Fragilis - s/p I+D x2- , SP resolution of abscess -CT abd/p w/ 08/02: Mostly resolved left upper quadrant and right upper quadrant fluid collections, post surgical evacuation. Minimal residual fluid as described. Appearance of the residual fluid is nonspecific as regards whether or not infected. Other postsurgical changes, as described, including the minimal residual pneumoperitoneum, surgical drain removal. 2 new fluid collections within the liver, could represent small hepatic abscesses versus noninfected acquired fluid collections, possibly related to surgical trauma. Dilated proximal small bowel, gradually narrowing to normal caliber more distally. No evidence of obstruction, as ingested contrast is seen to traverse the entirety of the GI tract. Small splenic hilar, gastric varices. This, in combination with mesenteric congestion, could indicate portal hypertension. However, no morphologic changes of the liver to suggest cirrhosis are evident. Moderate right pleural effusion, slightly decreased in size from the previous study. Trace left pleural effusion, significantly decreased in size from the previous study. Gas within the bladder. Probably related to recent instrumentation. If there is no history of recent Dickens catheterization, however , the possibility of emphysematous cystitis should be considered -s/p exploratory laparotomy, abdominal washout, evacuation of abscess, drain placement and abdominal closure 07/20; cx not received in the lab -s/p CT guided drainage APOLLO fluid collection 07/19: Aspiration and drainage of left upper quadrant collection, yielding 150 mL of carin pus. Note that the collection could only be partially evacuated, however, despite confirmation of apparent adequate position of the drain.This may indicate high viscosity of the contents; cx E. fecalis (turcios S), PREVOTELLA LOESCHEII ([place]umgentin, Clinda R; Metronidazole S) s/p ex lap with left colectomy and transverse colostomy for perforated left colon, evacuation of intrabd abscess, abd washout w/ drain placement 07/09 -CT abd/p w/ 07/18: Postsurgical changes, as described, status post transverse colectomy, Jazz procedure, and placement of multiple surgical drains. Left upper quadrant intraperitoneal fluid collection, despite the presence of a surgical drain in the center of the collection. The presence of gas bubbles within rather than floating nondependently in the collection indicate that this fluid may be viscous. 2 other significant intraperitoneal collections,which do not appear to communicate, possibly loculated. Given presence of somewhat thick enhancing rim surrounding all of these, infected collections are certainly possible ( left paracolic gutter 5.8 cmx 4.3 cm x 8.3cm and R paracolic gutter, medial and inferior to tip R hepatic lobe 8cm x 6.4cm x8cm). Other than the gas within the left upper quadrant collection, previously demonstrated pneumoperitoneum has largely resolved. Left upper quadrant thick walled small bowel loops. Possibly reactive due to adjacent inflammation, enteritis is also possible. No evidence of bowel obstruction. Gallbladder wall edema versus pericholecystic fluid. -OR findings: The omentum was significantly thickened and adhesed to the small bowel and into the left lower quadrant. There was significant inflammatory process throughout the abdomen including a thickening of almost the entire peritoneal lining. The proximal portion of the jejunum was significantly thickened and had a rind of inflammatory infectious tissue on it. left transverse and descending colon, there was significant amount of thickening and significant disease process with some areas of mild ischemia noted and in the descending colon around the descending and sigmoid junction, there was a gross perforation with grossspillage of bowel contents noted in the area. there was a fluid collection/pelvic abscess, which was evacuated. There was a fluid collection in the right upper quadrant around the liver, which was evacuated and a large left upper quadrant subphrenic abscess with significant tissue rind and thickening around the stomach, spleen, peritoneum, and diaphragm in that location. CT : Evidence of perforation of hollow viscus with extensive amount of free air in the upper abdomen and some free fluid is well. Fever, SP Leukocytosis SP -07/31 Cdiff neg -07/15 Bcx Neg ?PNA, SP Rx -CXR 07/31: Improved left basilar consolidation, since 07/15/2017. Some residual atelectasis and possibly minimal residual consolidation. Decreased but persistent pleural fluid on the left. Resolved right mid and lower lung consolidation. Some residual perihilar atelectasis. New or increased small right pleural effusion. Left upper quadrant surgical drain Elevated ALP , improved -Abd US: Negative for gallstones. There is borderline gallbladder wall thickening, however. Most likely, this is reactive secondary to surrounding inflammation related to recent bowel perforation and surgery for such. However, the possibility of acalculous acute cholecystitis should be considered, and consideration for nuclear medicine hepatobiliary scanning if there is high clinical suspicion history of diarrhea, SP RAMSEY: Improved HTN COPD/asthma. Smoker. History of chronic constipation. Osteoarthritis. ? CAD/VA, hx PLAN: - Monitor pt off of AB Rx 08/10 SP IV Meropenem abx d#31 , Fluconazole # 21, Linezolid #18 , monitor pt off of AB Rx -weekly CBC/CMP --08/02 SP IV ampicillin #17 --07/21 Zosyn #4 --07/18 SP Ertapenem, PO Amoxicillin #3 --07/16 SP Cefepime #2 --07/12 SP Zosyn d# 6 --SP Rocephin d# 5 -surgery following midline wound closure needed -wound care -Trend WBC Subjective Allergies: Coded Allergies: No Known Allergies (Unverified , 01/20/17) Subjective afebrile Objective Vital Signs Last 24 Hour Vital Signs Date Time Temp Pulse Resp B/P (MAP) Pulse Ox O2 Delivery O2 Flow Rate FiO2 08/15/17 16:00 97.0 95 21 107/73 98 97.0 08/15/17 16:00 Room Air 08/15/17 12:00 Room Air 08/15/17 12:00 98.1 69 17 111/62 96 98.1 08/15/17 08:00 97.2 76 18 118/68 96 97.2 08/15/17 08:00 Room Air 08/15/17 04:00 97.9 88 18 106/69 98 97.9 08/15/17 02:55 98.4 08/15/17 02:25 98.4 08/14/17 23:55 98.4 99 18 105/68 96 98.4 08/14/17 21:44 97.5 08/14/17 20:00 97.5 106 18 116/78 100 97.5 08/14/17 19:30 92 Room Air 21 08/14/17 19:30 Room Air 21 Height (Feet): 5 Height (Inches): 9.00 Weight (Pounds): 110 HEENT: anicteric Respiratory/Chest: normal breath sounds Cardiovascular: regular rhythm Abdomen: soft, non tender Laboratory Tests Test 08/15/17 08:00 Sodium Level 135 MMOL/L (136-145) L Potassium Level 3.8 MMOL/L (3.5-5.1) Chloride Level 97 MMOL/L (98-107) L Carbon Dioxide Level 32 MMOL/L (21-32) Anion Gap 6 mmol/L (5-15) Blood Urea Nitrogen 15 mg/dL (7-18) Creatinine 0.6 MG/DL (0.55-1.30) Estimat Glomerular Filtration Rate > 60 mL/min (>60) Glucose Level 108 MG/DL (74-106) H Osmolality 290 mOsm/kg (297-317) L Uric Acid 3.4 MG/DL (2.6-7.2) Calcium Level 8.7 MG/DL (8.5-10.1) Phosphorus Level 4.7 MG/DL (2.5-4.9) Magnesium Level 1.6 MG/DL (1.8-2.4) L Total Bilirubin 0.2 MG/DL (0.2-1.0) Aspartate Amino Transf (AST/SGOT) 13 U/L (15-37) L Alanine Aminotransferase (ALT/SGPT) 14 U/L (12-78) Alkaline Phosphatase 130 U/L (46-116) H Total Protein 7.0 G/DL (6.4-8.2) Albumin 2.4 G/DL (3.4-5.0) L Globulin 4.6 g/dL Albumin/Globulin Ratio 0.5 (1.0-2.7) L Current Medications Medications (Trade) Dose Ordered Sig/Kayy Route PRN Reason Start Time Stop Time Status Last Admin Dose Admin Acetaminophen/ Hydrocodone Bitart ([place] 5/325) 1 tab Q4H PRN ORAL Breakthrough Pain 08/11/17 11:00 08/18/17 10:59 08/15/17 15:54 Dextrose (Dextrose 50%) 25 ml STAT PRN IV HYPOGLYCEMIA 08/08/17 09:45 09/07/17 09:44 Diphenhydramine HCl (Benadryl) 25 mg Q6H PRN IVP Itching 07/25/17 17:00 08/24/17 16:59 08/15/17 10:06 Docusate Sodium (Colace) 100 mg TWICE A DAY ORAL 08/09/17 18:00 09/08/17 17:59 08/15/17 17:37 Famotidine (Pepcid) 40 mg QHS ORAL 08/08/17 21:00 09/07/17 20:59 08/14/17 21:43 Heparin Sodium (Porcine) (Heparin 5000 units/ml) 5,000 units EVERY 12 HOURS SUBQ 08/01/17 21:00 08/22/17 21:00 08/15/17 08:30 Hydromorphone HCl (Dilaudid) 2 mg Q4H PRN IVP for pain sclae 08-1408/11/17 10:30 08/18/17 10:29 08/15/17 17:38 Ondansetron HCl (Zofran) 4 mg Q6H PRN IVP Nausea & Vomiting 08/11/17 11:00 09/10/17 10:59 08/15/17 17:38 Potassium Chloride (K-Dur) 40 meq DAILY ORAL 07/20/17 09:00 08/19/17 08:59 08/15/17 08:26 Risperidone (RisperDAL) 4 mg BEDTIME ORAL 07/23/17 21:00 08/22/17 20:59 08/14/17 21:44 Rick Arvizu MD Aug 15, 2017 18:26
--- NOTE | 2017-08-15 19:22 | Pulmonology Progress Note ---
Assessment/Plan Problems: (1) Perforated abdominal viscus (2) ARF (acute renal failure) (3) Psychosis (4) Acute constipation (5) Amphetamine abuse Assessment/Plan symptomatic treatmen f/u wbc and clinically check lbas iv fluids pain management med/surg all reviewed dc planning Subjective ROS Limited/Unobtainable: No Constitutional: Reports: no symptoms HEENT: Repors: no symptoms Respiratory: Reports: no symptoms Allergies: Coded Allergies: No Known Allergies (Unverified , 01/20/17) Objective Last 24 Hour Vital Signs Date Time Temp Pulse Resp B/P (MAP) Pulse Ox O2 Delivery O2 Flow Rate FiO2 08/15/17 16:00 97.0 95 21 107/73 98 97.0 08/15/17 16:00 Room Air 08/15/17 12:00 Room Air 08/15/17 12:00 98.1 69 17 111/62 96 98.1 08/15/17 08:00 97.2 76 18 118/68 96 97.2 08/15/17 08:00 Room Air 08/15/17 04:00 97.9 88 18 106/69 98 97.9 08/15/17 02:55 98.4 08/15/17 02:25 98.4 08/14/17 23:55 98.4 99 18 105/68 96 98.4 08/14/17 21:44 97.5 08/14/17 20:00 97.5 106 18 116/78 100 97.5 08/14/17 19:30 92 Room Air 21 08/14/17 19:30 Room Air 21 Intake and Output 08/14/17 08/15/17 19:00 07:00 Intake Total 480 ml 375 ml Output Total 1200 ml 425 ml Balance -720 ml -50 ml Intake Oral 480 ml 375 ml Output Urine Total 1200 ml 425 ml Objective General Appearance: WD/WN Lines, tubes and drains: peripheral HEENT: normocephalic, atraumatic Neck: non-tender, normal alignment Respiratory/Chest: chest wall non-tender, lungs clear Breasts: no masses Cardiovascular/Chest: normal peripheral pulses, normal rate Abdomen: normal bowel sounds, clean dressing Genitourinary/Rectal: normal genital exam, heme negative stool Extremities: normal range of motion, non-tender Skin Exam: normal pigmentation Laboratory Tests 08/15/17 08:00: Sodium Level 135L, Potassium Level 3.8, Chloride Level 97L, Carbon Dioxide Level 32, Anion Gap 6, Blood Urea Nitrogen 15, Creatinine 0.6, Estimat Glomerular Filtration Rate > 60, Glucose Level 108H, Osmolality 290L, Uric Acid 3.4, Calcium Level 8.7, Phosphorus Level 4.7, Magnesium Level 1.6L, Total Bilirubin 0.2, Aspartate Amino Transf (AST/SGOT) 13L, Alanine Aminotransferase ( ALT/SGPT) 14, Alkaline Phosphatase 130H, Total Protein 7.0, Albumin 2.4L, Globulin 4.6, Albumin/Globulin Ratio 0.5L Current Medications Medications (Trade) Dose Ordered Sig/Kayy Route PRN Reason Start Time Stop Time Status Last Admin Dose Admin Acetaminophen/ Hydrocodone Bitart ([place] 5/325) 1 tab Q4H PRN ORAL Breakthrough Pain 08/11/17 11:00 08/18/17 10:59 08/15/17 15:54 Dextrose (Dextrose 50%) 25 ml STAT PRN IV HYPOGLYCEMIA 08/08/17 09:45 09/07/17 09:44 Diphenhydramine HCl (Benadryl) 25 mg Q6H PRN IVP Itching 07/25/17 17:00 08/24/17 16:59 08/15/17 10:06 Docusate Sodium (Colace) 100 mg TWICE A DAY ORAL 08/09/17 18:00 09/08/17 17:59 08/15/17 17:37 Famotidine (Pepcid) 40 mg QHS ORAL 08/08/17 21:00 09/07/17 20:59 08/14/17 21:43 Heparin Sodium (Porcine) (Heparin 5000 units/ml) 5,000 units EVERY 12 HOURS SUBQ 08/01/17 21:00 08/22/17 21:00 08/15/17 08:30 Hydromorphone HCl (Dilaudid) 2 mg Q4H PRN IVP for pain sclae 08-1408/11/17 10:30 08/18/17 10:29 08/15/17 17:38 Ondansetron HCl (Zofran) 4 mg Q6H PRN IVP Nausea & Vomiting 08/11/17 11:00 09/10/17 10:59 08/15/17 17:38 Potassium Chloride (K-Dur) 40 meq DAILY ORAL 07/20/17 09:00 08/19/17 08:59 08/15/17 08:26 Risperidone (RisperDAL) 4 mg BEDTIME ORAL 07/23/17 21:00 08/22/17 20:59 08/14/17 21:44 Brenda Martel MD Aug 15, 2017 19:22
[2017-08-15 20:00] VITALS: BP 109/71
[2017-08-16] VITALS (8 sets, daily range): BP systolic 94–111; BP diastolic 56–75
[2017-08-16] MEDS: Norco 5mg/325mg tab ORAL PRN ×3 (00:19→21:53)
[2017-08-16] MEDS: DiphenhydrAMINE 50mg/ml Inj IVP PRN ×3 (02:31→16:52)
[2017-08-16] MEDS: Docusate 100mg cap ORAL SCH ×2 (08:25→16:52)
[2017-08-16] MEDS: Heparin 5000 units/ml inj SUBQ SCH ×2 (08:27→21:48)
--- NOTE | 2017-08-16 09:54 | GI Progress Note ---
Assessment/Plan Problems: (1) Psychiatric disorder ICD Codes: F99 - Mental disorder, not otherwise specified SNOMED: 39189185, 191521969 (2) Amphetamine abuse ICD Codes: F15.10 - Other stimulant abuse, uncomplicated SNOMED: 74822097 (3) Opiate dependence ICD Codes: F11.20 - Opioid dependence, uncomplicated SNOMED: 22043359 Qualifiers: Qualified Codes: F11.20 - Opioid dependence, uncomplicated (4) Perforated abdominal viscus SNOMED: 509783345 Status: stable Status Narrative Discussed with Dr. Castro. Assessment/Plan s/p Exploratory laparotomy, partial bowel resection fu surgical recs IVFs diet adv per surgery colostomy care prn transfusions serial imaging prn pain mgmt fu labs Subjective Subjective abdominal pain Objective Last 24 Hour Vital Signs Date Time Temp Pulse Resp B/P (MAP) Pulse Ox O2 Delivery O2 Flow Rate FiO2 08/16/17 08:16 97.7 90 20 105/66 96 97.7 08/16/17 07:01 99.0 08/16/17 06:31 99.0 08/16/17 04:00 99.0 87 18 101/56 94 99.0 08/16/17 02:31 98.9 08/16/17 01:18 98.9 08/16/17 00:19 98.9 08/16/17 00:00 98.9 89 18 96/56 94 98.9 08/16/17 00:00 94 Room Air 08/15/17 22:01 99.1 08/15/17 20:23 96 Room Air 08/15/17 20:12 Room Air 21 08/15/17 20:12 97 Room Air 21 08/15/17 20:00 99.1 107 18 109/71 96 99.1 08/15/17 16:00 97.0 95 21 107/73 98 97.0 08/15/17 16:00 Room Air 08/15/17 12:00 Room Air 08/15/17 12:00 98.1 69 17 111/62 96 98.1 Intake and Output 08/15/17 08/16/17 19:00 07:00 Intake Total 480 ml 260 ml Balance 480 ml 260 ml Intake Oral 480 ml 260 ml # Voids 5 # Bowel Movements 2 Height (Feet): 5 Height (Inches): 9.00 Weight (Pounds): 105 General Appearance: WD/WN, no apparent distress, alert, thin Cardiovascular: normal rate Respiratory/Chest: normal breath sounds, no respiratory distress Abdominal Exam: normal bowel sounds, non tender, soft, other - colostomy Extremities: normal range of motion, non-tender Samia Albarran N.P. Aug 16, 2017 09:54
--- NOTE | 2017-08-16 12:48 | Nephrology Progress Note ---
Assessment/Plan Problem List: (1) ARF (acute renal failure) (2) UTI (urinary tract infection) (3) Psychiatric disorder (4) Acute abdomen Assessment Status: Na now up to 135 WBCs wnl had multi abdominal drains acute renal failure- extended left colectomy due to perf transverse colostomy creation Plan Plan: low Na ... improving...work up intitiated .....likely SIADH PO Fluid Restriction DC lasix IV per charles, 07/20/17 Mag and K supplement as needed Post op ( OP 07/08/17) Dickens- 2D echo normal Ej Fx Albumin bollous monitor renal parameters K and Phos and Mag supplement as needed Subjective ROS Limited/Unobtainable: No Objective Objective Last 24 Hour Vital Signs Date Time Temp Pulse Resp B/P (MAP) Pulse Ox O2 Delivery O2 Flow Rate FiO2 08/16/17 11:46 98.2 96 20 94/64 96 98.2 08/16/17 10:59 97.7 08/16/17 10:00 97.7 08/16/17 08:16 97.7 90 20 105/66 96 97.7 08/16/17 07:01 99.0 08/16/17 06:31 99.0 08/16/17 04:00 99.0 87 18 101/56 94 99.0 08/16/17 02:31 98.9 08/16/17 00:19 98.9 08/16/17 00:00 98.9 89 18 96/56 94 98.9 08/16/17 00:00 94 Room Air 08/15/17 22:01 99.1 08/15/17 20:23 96 Room Air 08/15/17 20:12 Room Air 21 08/15/17 20:12 97 Room Air 21 08/15/17 20:00 99.1 107 18 109/71 96 99.1 08/15/17 16:00 97.0 95 21 107/73 98 97.0 08/15/17 16:00 Room Air Intake and Output 08/15/17 08/16/17 19:00 07:00 Intake Total 480 ml 260 ml Balance 480 ml 260 ml Intake Oral 480 ml 260 ml # Voids 5 # Bowel Movements 2 Height (Feet): 5 Height (Inches): 9.00 Weight (Pounds): 105 General Appearance: no apparent distress Abdomen: soft Objective no other change NOEMY MARK Aug 16, 2017 12:48
--- NOTE | 2017-08-16 19:58 | Infectious Diseases Prog Note ---
Assessment/Plan Assessment/Plan ASSESSMENT: The patient is a 46-year-old male with; Bowel perf w/ development of 2 Abscess (subphrenic and pelvic) Cx: E coli( ESBL) and ENTEROCOCCUS AVIUM (turcios S) and Bact Fragilis - s/p I+D x2- , SP resolution of abscess -CT abd/p w/ 08/02: Mostly resolved left upper quadrant and right upper quadrant fluid collections, post surgical evacuation. Minimal residual fluid as described. Appearance of the residual fluid is nonspecific as regards whether or not infected. Other postsurgical changes, as described, including the minimal residual pneumoperitoneum, surgical drain removal. 2 new fluid collections within the liver, could represent small hepatic abscesses versus noninfected acquired fluid collections, possibly related to surgical trauma. Dilated proximal small bowel, gradually narrowing to normal caliber more distally. No evidence of obstruction, as ingested contrast is seen to traverse the entirety of the GI tract. Small splenic hilar, gastric varices. This, in combination with mesenteric congestion, could indicate portal hypertension. However, no morphologic changes of the liver to suggest cirrhosis are evident. Moderate right pleural effusion, slightly decreased in size from the previous study. Trace left pleural effusion, significantly decreased in size from the previous study. Gas within the bladder. Probably related to recent instrumentation. If there is no history of recent Dickens catheterization, however , the possibility of emphysematous cystitis should be considered -s/p exploratory laparotomy, abdominal washout, evacuation of abscess, drain placement and abdominal closure 07/20; cx not received in the lab -s/p CT guided drainage APOLLO fluid collection 07/19: Aspiration and drainage of left upper quadrant collection, yielding 150 mL of carin pus. Note that the collection could only be partially evacuated, however, despite confirmation of apparent adequate position of the drain.This may indicate high viscosity of the contents; cx E. fecalis (turcios S), PREVOTELLA LOESCHEII ([place]umgentin, Clinda R; Metronidazole S) s/p ex lap with left colectomy and transverse colostomy for perforated left colon, evacuation of intrabd abscess, abd washout w/ drain placement 07/09 -CT abd/p w/ 07/18: Postsurgical changes, as described, status post transverse colectomy, Jazz procedure, and placement of multiple surgical drains. Left upper quadrant intraperitoneal fluid collection, despite the presence of a surgical drain in the center of the collection. The presence of gas bubbles within rather than floating nondependently in the collection indicate that this fluid may be viscous. 2 other significant intraperitoneal collections,which do not appear to communicate, possibly loculated. Given presence of somewhat thick enhancing rim surrounding all of these, infected collections are certainly possible ( left paracolic gutter 5.8 cmx 4.3 cm x 8.3cm and R paracolic gutter, medial and inferior to tip R hepatic lobe 8cm x 6.4cm x8cm). Other than the gas within the left upper quadrant collection, previously demonstrated pneumoperitoneum has largely resolved. Left upper quadrant thick walled small bowel loops. Possibly reactive due to adjacent inflammation, enteritis is also possible. No evidence of bowel obstruction. Gallbladder wall edema versus pericholecystic fluid. -OR findings: The omentum was significantly thickened and adhesed to the small bowel and into the left lower quadrant. There was significant inflammatory process throughout the abdomen including a thickening of almost the entire peritoneal lining. The proximal portion of the jejunum was significantly thickened and had a rind of inflammatory infectious tissue on it. left transverse and descending colon, there was significant amount of thickening and significant disease process with some areas of mild ischemia noted and in the descending colon around the descending and sigmoid junction, there was a gross perforation with grossspillage of bowel contents noted in the area. there was a fluid collection/pelvic abscess, which was evacuated. There was a fluid collection in the right upper quadrant around the liver, which was evacuated and a large left upper quadrant subphrenic abscess with significant tissue rind and thickening around the stomach, spleen, peritoneum, and diaphragm in that location. CT : Evidence of perforation of hollow viscus with extensive amount of free air in the upper abdomen and some free fluid is well. Fever, SP Leukocytosis SP -07/31 Cdiff neg -07/15 Bcx Neg ?PNA, SP Rx -CXR 07/31: Improved left basilar consolidation, since 07/15/2017. Some residual atelectasis and possibly minimal residual consolidation. Decreased but persistent pleural fluid on the left. Resolved right mid and lower lung consolidation. Some residual perihilar atelectasis. New or increased small right pleural effusion. Left upper quadrant surgical drain Elevated ALP , improved -Abd US: Negative for gallstones. There is borderline gallbladder wall thickening, however. Most likely, this is reactive secondary to surrounding inflammation related to recent bowel perforation and surgery for such. However, the possibility of acalculous acute cholecystitis should be considered, and consideration for nuclear medicine hepatobiliary scanning if there is high clinical suspicion history of diarrhea, SP RAMSEY: Improved HTN COPD/asthma. Smoker. History of chronic constipation. Osteoarthritis. ? CAD/SD, hx PLAN: - Monitor pt off of AB Rx 08/10 SP IV Meropenem abx d#31 , Fluconazole # 21, Linezolid #18 , monitor pt off of AB Rx -weekly CBC/CMP --08/02 SP IV ampicillin #17 --07/21 Zosyn #4 --07/18 SP Ertapenem, PO Amoxicillin #3 --07/16 SP Cefepime #2 --07/12 SP Zosyn d# 6 --SP Rocephin d# 5 -surgery following midline wound closure needed -wound care -Trend WBC Subjective Allergies: Coded Allergies: No Known Allergies (Unverified , 01/20/17) Subjective no new complain Objective Vital Signs Last 24 Hour Vital Signs Date Time Temp Pulse Resp B/P (MAP) Pulse Ox O2 Delivery O2 Flow Rate FiO2 08/16/17 19:56 96.6 89 18 111/74 99 96.6 08/16/17 18:13 97.3 08/16/17 15:40 97.3 92 20 106/65 97 97.3 08/16/17 13:46 98.2 08/16/17 13:16 98.2 08/16/17 13:12 92 18 109/75 08/16/17 11:46 98.2 96 20 94/64 96 98.2 08/16/17 10:59 97.7 08/16/17 10:00 97.7 08/16/17 08:16 97.7 90 20 105/66 96 97.7 08/16/17 06:31 99.0 08/16/17 04:00 99.0 87 18 101/56 94 99.0 08/16/17 02:31 98.9 08/16/17 00:19 98.9 08/16/17 00:00 98.9 89 18 96/56 94 98.9 08/16/17 00:00 94 Room Air 08/15/17 22:01 99.1 4/11/18 20:23 96 Room Air 08/15/17 20:12 Room Air 21 08/15/17 20:12 97 Room Air 21 08/15/17 20:00 99.1 107 18 109/71 96 99.1 Height (Feet): 5 Height (Inches): 9.00 Weight (Pounds): 105 HEENT: atraumatic Respiratory/Chest: no accessory muscle use Cardiovascular: normal rate Abdomen: normal bowel sounds Current Medications Medications (Trade) Dose Ordered Sig/Kayy Route PRN Reason Start Time Stop Time Status Last Admin Dose Admin Acetaminophen/ Hydrocodone Bitart ([place] 5/325) 1 tab Q4H PRN ORAL pain 1-5 08/16/17 19:00 08/26/17 18:59 Dextrose (Dextrose 50%) 25 ml STAT PRN IV HYPOGLYCEMIA 08/08/17 09:45 09/07/17 09:44 Diphenhydramine HCl (Benadryl) 25 mg Q6H PRN IVP Itching 07/25/17 17:00 08/24/17 16:59 08/16/17 16:52 Docusate Sodium (Colace) 100 mg TWICE A DAY ORAL 08/09/17 18:00 09/08/17 17:59 08/16/17 16:52 Famotidine (Pepcid) 40 mg QHS ORAL 08/08/17 21:00 09/07/17 20:59 08/15/17 19:50 Heparin Sodium (Porcine) (Heparin 5000 units/ml) 5,000 units EVERY 12 HOURS SUBQ 08/01/17 21:00 08/22/17 21:00 08/16/17 08:27 Hydromorphone HCl (Dilaudid) 1.5 mg Q4H PRN IVP for pain scale 6-10 08/16/17 19:00 08/26/17 18:59 Ondansetron HCl (Zofran) 4 mg Q6H PRN IVP Nausea & Vomiting 08/11/17 11:00 09/10/17 10:59 08/16/17 14:49 Potassium Chloride (K-Dur) 40 meq DAILY ORAL 07/20/17 09:00 08/19/17 08:59 08/16/17 08:25 Risperidone (RisperDAL) 4 mg BEDTIME ORAL 07/23/17 21:00 08/22/17 20:59 08/15/17 19:50 Rick Arvizu MD Aug 16, 2017 19:58
--- NOTE | 2017-08-16 21:21 | General Progress Note ---
Assessment/Plan Assessment/Plan #. Anemia, likely due to chronic disease. --> No occult blood. H/H stable at this time. --> Monitor and trend cbc daily. --> Anemia workup reviewed. --> Iron 24, TIBC 173, Ferritin 513, B12 424, Folate 9.5, TSH 4.2 --> Does not need blood transfusion unless symptomatic or hgb <7 #. Perforation of viscus and pneumoperitoneum, currently improving. --> Continue to closely monitor. Peripheral smear reviewed as well. --> exam with peritonitis generalized but with focus in LLQ. #. Rhabdomyolysis, currently improved with administration of IV fluids. #. Hypoalbuminemia, likely secondary to decreased p.o. intake, monitor malnutrition. --> Due to elevated CPK of 1543, resolved at this time. #. Pneumoperitoneum. #. Pleuritic chest pain. On pain management. #. Chronic constipation. #. Schizophrenia, paranoid type. --> On risperidone. #. Smoker. #. Amphetamine use. #. Perforated left colon with prolonged inflammatory reaction, gross spillage, bowel ischemia. #. Wound Care. #. Leukocytosis. --> Wbc count downtrended from yesterday and resolved at this time. #. Discharge planning. Subjective Date patient seen: Aug 15, 2017 Constitutional: Denies: no symptoms, chills, diaphoresis, fever, malaise, weakness, other HEENT: Denies: no symptoms, eye pain, blurred vision, tearing, double vision, ear pain, ear discharge, nose pain, nose congestion, throat pain, throat swelling, mouth pain, mouth swelling, other Cardiovascular: Denies: no symptoms, chest pain, edema, irregular heart rate, lightheadedness, palpitations, syncope, other Respiratory: Denies: no symptoms, cough, orthopnea, shortness of breath, SOB with excertion, SOB at rest, sputum, stridor, wheezing, other Gastrointestinal/Abdominal: Denies: no symptoms, abdomen distended, abdominal pain, black stools, tarry stools, blood in stool, constipated, diarrhea, difficulty swallowing, nausea, poor appetite, poor fluid intake, rectal bleeding , vomiting, other Genitourinary: Denies: no symptoms, burning, discharge, frequency, flank pain, hematuria, incontinence, pain, urgency, other Neurologic/Psychiatric: Denies: no symptoms, anxiety, depressed, emotional problems, headache, numbness, paresthesia, pre-existing deficit, seizure, tingling, tremors, weakness, other Hematologic/Lymphatic: Reports: anemia Allergies: Coded Allergies: No Known Allergies (Unverified , 01/20/17) Subjective On pain management. No new events. No fever or chills. Objective Last 24 Hour Vital Signs Date Time Temp Pulse Resp B/P (MAP) Pulse Ox O2 Delivery O2 Flow Rate FiO2 08/16/17 19:56 96.6 89 18 111/74 99 96.6 08/16/17 18:13 97.3 08/16/17 15:40 97.3 92 20 106/65 97 97.3 08/16/17 13:46 98.2 08/16/17 13:16 98.2 08/16/17 13:12 92 18 109/75 08/16/17 11:46 98.2 96 20 94/64 96 98.2 08/16/17 10:59 97.7 08/16/17 10:00 97.7 08/16/17 08:16 97.7 90 20 105/66 96 97.7 08/16/17 06:31 99.0 08/16/17 04:00 99.0 87 18 101/56 94 99.0 08/16/17 02:31 98.9 08/16/17 00:19 98.9 08/16/17 00:00 98.9 89 18 96/56 94 98.9 08/16/17 00:00 94 Room Air 08/15/17 22:01 99.1 Intake and Output 08/15/17 08/16/17 19:00 07:00 Intake Total 480 ml 260 ml Balance 480 ml 260 ml Intake Oral 480 ml 260 ml # Voids 5 # Bowel Movements 2 Height (Feet): 5 Height (Inches): 9.00 Weight (Pounds): 105 General Appearance: no apparent distress, confused Respiratory/Chest: decreased breath sounds Tashi Brown MD Aug 16, 2017 21:21
--- NOTE | 2017-08-16 22:52 | General Progress Note ---
Assessment/Plan Assessment/Plan Schizophrenia CPT Encephalopathy PLAN: - increase the risperidone to 4 mg at bedtime. Subjective Date patient seen: Aug 16, 2017 Allergies: Coded Allergies: No Known Allergies (Unverified , 01/20/17) Subjective the pt is calmer more organized. meds seeking Objective Last 24 Hour Vital Signs Date Time Temp Pulse Resp B/P (MAP) Pulse Ox O2 Delivery O2 Flow Rate FiO2 08/16/17 21:53 96.6 08/16/17 19:56 96.6 89 18 111/74 99 96.6 08/16/17 18:13 97.3 08/16/17 15:40 97.3 92 20 106/65 97 97.3 08/16/17 13:46 98.2 08/16/17 13:16 98.2 08/16/17 13:12 92 18 109/75 08/16/17 11:46 98.2 96 20 94/64 96 98.2 08/16/17 10:59 97.7 08/16/17 10:00 97.7 08/16/17 08:16 97.7 90 20 105/66 96 97.7 08/16/17 06:31 99.0 08/16/17 04:00 99.0 87 18 101/56 94 99.0 08/16/17 02:31 98.9 08/16/17 00:19 98.9 08/16/17 00:00 98.9 89 18 96/56 94 98.9 08/16/17 00:00 94 Room Air Intake and Output 08/15/17 08/16/17 19:00 07:00 Intake Total 480 ml 260 ml Balance 480 ml 260 ml Intake Oral 480 ml 260 ml # Voids 5 # Bowel Movements 2 Height (Feet): 5 Height (Inches): 9.00 Weight (Pounds): 105 Idalia Montanez M.D. Aug 16, 2017 22:52
[2017-08-17] MEDS: DiphenhydrAMINE 50mg/ml Inj IVP PRN ×3 (03:04→18:28)
[2017-08-17 03:27] VITALS: BP 100/64
[2017-08-17 08:17] VITALS: BP 101/62
[2017-08-17] MEDS: Docusate 100mg cap ORAL SCH ×3 (08:47→17:37)
[2017-08-17] MEDS: Heparin 5000 units/ml inj SUBQ SCH ×2 (08:47→22:13)
[2017-08-17] MEDS: Norco 5mg/325mg tab ORAL PRN ×3 (08:49→22:11)
--- NOTE | 2017-08-17 10:35 | Nephrology Progress Note ---
Assessment/Plan Problem List: (1) ARF (acute renal failure) (2) UTI (urinary tract infection) (3) Psychiatric disorder (4) Acute abdomen Assessment Status: Na now up to 135 WBCs wnl had multi abdominal drains acute renal failure- extended left colectomy due to perf transverse colostomy creation Plan Plan: low Na ... improving...work up intitiated .....likely SIADH PO Fluid Restriction DC lasix IV per charles, 07/20/17 Mag and K supplement as needed Post op ( OP 07/08/17) Dickens- 2D echo normal Ej Fx Albumin bollous monitor renal parameters K and Phos and Mag supplement as needed Subjective ROS Limited/Unobtainable: No Objective Objective Last 24 Hour Vital Signs Date Time Temp Pulse Resp B/P (MAP) Pulse Ox O2 Delivery O2 Flow Rate FiO2 08/17/17 09:48 97.7 08/17/17 08:49 97.7 08/17/17 08:17 97.7 87 20 101/62 97 97.7 08/17/17 07:10 97.6 08/17/17 06:40 97.6 08/17/17 03:27 97.6 88 18 100/64 95 Room Air 2.0 21 97.6 08/17/17 00:23 98.2 08/16/17 23:51 98.2 111 18 106/65 97 98.2 08/16/17 21:53 96.6 08/16/17 19:56 96.6 89 18 111/74 99 96.6 08/16/17 18:13 97.3 08/16/17 15:40 97.3 92 20 106/65 97 97.3 08/16/17 13:46 98.2 08/16/17 13:16 98.2 08/16/17 13:12 92 18 109/75 08/16/17 11:46 98.2 96 20 94/64 96 98.2 08/16/17 10:59 97.7 Intake and Output 08/16/17 08/17/17 19:00 07:00 Intake Total 720 ml 30 ml Output Total 420 ml Balance 720 ml -390 ml Intake Oral 720 ml 30 ml Output Urine Total 420 ml # Voids 2 1 # Bowel Movements 1 2 Height (Feet): 5 Height (Inches): 9.00 Weight (Pounds): 107 General Appearance: no apparent distress Objective no other change NOEMY MARK Aug 17, 2017 10:35
[2017-08-17 11:48] VITALS: BP 107/67
--- NOTE | 2017-08-17 12:16 | GI Progress Note ---
Assessment/Plan Problems: (1) Psychiatric disorder ICD Codes: F99 - Mental disorder, not otherwise specified SNOMED: 69256096, 773146880 (2) Amphetamine abuse ICD Codes: F15.10 - Other stimulant abuse, uncomplicated SNOMED: 10717503 (3) Opiate dependence ICD Codes: F11.20 - Opioid dependence, uncomplicated SNOMED: 40915143 Qualifiers: Qualified Codes: F11.20 - Opioid dependence, uncomplicated (4) Perforated abdominal viscus SNOMED: 028471853 Status: stable Status Narrative Discussed with Dr. Castro. Assessment/Plan s/p Exploratory laparotomy, partial bowel resection fu surgical recs IVFs diet adv per surgery colostomy care prn transfusions serial imaging prn pain mgmt fu labs Subjective Subjective abdominal pain Objective Last 24 Hour Vital Signs Date Time Temp Pulse Resp B/P (MAP) Pulse Ox O2 Delivery O2 Flow Rate FiO2 08/17/17 11:48 98.1 87 20 107/67 98 98.1 08/17/17 11:40 97.7 08/17/17 11:10 97.7 08/17/17 09:48 97.7 08/17/17 08:49 97.7 08/17/17 08:17 97.7 87 20 101/62 97 97.7 08/17/17 06:40 97.6 08/17/17 03:27 97.6 88 18 100/64 95 Room Air 2.0 21 97.6 08/17/17 00:23 98.2 08/16/17 23:51 98.2 111 18 106/65 97 98.2 08/16/17 21:53 96.6 08/16/17 19:56 96.6 89 18 111/74 99 96.6 08/16/17 18:13 97.3 08/16/17 15:40 97.3 92 20 106/65 97 97.3 08/16/17 13:46 98.2 08/16/17 13:16 98.2 08/16/17 13:12 92 18 109/75 Intake and Output 08/16/17 08/17/17 19:00 07:00 Intake Total 720 ml 30 ml Output Total 420 ml Balance 720 ml -390 ml Intake Oral 720 ml 30 ml Output Urine Total 420 ml # Voids 2 1 # Bowel Movements 1 2 Height (Feet): 5 Height (Inches): 9.00 Weight (Pounds): 107 General Appearance: WD/WN, no apparent distress, alert Cardiovascular: normal rate Respiratory/Chest: normal breath sounds, no respiratory distress Abdominal Exam: normal bowel sounds, non tender, soft Extremities: normal range of motion, non-tender Samia Albarran N.P. Aug 17, 2017 12:16
--- NOTE | 2017-08-17 12:20 | Infectious Diseases Prog Note ---
Assessment/Plan Assessment/Plan ASSESSMENT: The patient is a 46-year-old male with; Bowel perf w/ development of 2 Abscess (subphrenic and pelvic) Cx: E coli( ESBL) and ENTEROCOCCUS AVIUM (turcios S) and Bact Fragilis - s/p I+D x2- , SP resolution of abscess -CT abd/p w/ 08/02: Mostly resolved left upper quadrant and right upper quadrant fluid collections, post surgical evacuation. Minimal residual fluid as described. Appearance of the residual fluid is nonspecific as regards whether or not infected. Other postsurgical changes, as described, including the minimal residual pneumoperitoneum, surgical drain removal. 2 new fluid collections within the liver, could represent small hepatic abscesses versus noninfected acquired fluid collections, possibly related to surgical trauma. Dilated proximal small bowel, gradually narrowing to normal caliber more distally. No evidence of obstruction, as ingested contrast is seen to traverse the entirety of the GI tract. Small splenic hilar, gastric varices. This, in combination with mesenteric congestion, could indicate portal hypertension. However, no morphologic changes of the liver to suggest cirrhosis are evident. Moderate right pleural effusion, slightly decreased in size from the previous study. Trace left pleural effusion, significantly decreased in size from the previous study. Gas within the bladder. Probably related to recent instrumentation. If there is no history of recent Dickens catheterization, however , the possibility of emphysematous cystitis should be considered -s/p exploratory laparotomy, abdominal washout, evacuation of abscess, drain placement and abdominal closure 07/20; cx not received in the lab -s/p CT guided drainage APOLLO fluid collection 07/19: Aspiration and drainage of left upper quadrant collection, yielding 150 mL of carin pus. Note that the collection could only be partially evacuated, however, despite confirmation of apparent adequate position of the drain.This may indicate high viscosity of the contents; cx E. fecalis (turcios S), PREVOTELLA LOESCHEII (Aumgentin, Clinda R; Metronidazole S) s/p ex lap with left colectomy and transverse colostomy for perforated left colon, evacuation of intrabd abscess, abd washout w/ drain placement 07/09 -CT abd/p w/ 07/18: Postsurgical changes, as described, status post transverse colectomy, Jazz procedure, and placement of multiple surgical drains. Left upper quadrant intraperitoneal fluid collection, despite the presence of a surgical drain in the center of the collection. The presence of gas bubbles within rather than floating nondependently in the collection indicate that this fluid may be viscous. 2 other significant intraperitoneal collections,which do not appear to communicate, possibly loculated. Given presence of somewhat thick enhancing rim surrounding all of these, infected collections are certainly possible ( left paracolic gutter 5.8 cmx 4.3 cm x 8.3cm and R paracolic gutter, medial and inferior to tip R hepatic lobe 8cm x 6.4cm x8cm). Other than the gas within the left upper quadrant collection, previously demonstrated pneumoperitoneum has largely resolved. Left upper quadrant thick walled small bowel loops. Possibly reactive due to adjacent inflammation, enteritis is also possible. No evidence of bowel obstruction. Gallbladder wall edema versus pericholecystic fluid. -OR findings: The omentum was significantly thickened and adhesed to the small bowel and into the left lower quadrant. There was significant inflammatory process throughout the abdomen including a thickening of almost the entire peritoneal lining. The proximal portion of the jejunum was significantly thickened and had a rind of inflammatory infectious tissue on it. left transverse and descending colon, there was significant amount of thickening and significant disease process with some areas of mild ischemia noted and in the descending colon around the descending and sigmoid junction, there was a gross perforation with grossspillage of bowel contents noted in the area. there was a fluid collection/pelvic abscess, which was evacuated. There was a fluid collection in the right upper quadrant around the liver, which was evacuated and a large left upper quadrant subphrenic abscess with significant tissue rind and thickening around the stomach, spleen, peritoneum, and diaphragm in that location. CT : Evidence of perforation of hollow viscus with extensive amount of free air in the upper abdomen and some free fluid is well. Fever, SP Leukocytosis SP -07/31 Cdiff neg -07/15 Bcx Neg ?PNA, SP Rx -CXR 07/31: Improved left basilar consolidation, since 07/15/2017. Some residual atelectasis and possibly minimal residual consolidation. Decreased but persistent pleural fluid on the left. Resolved right mid and lower lung consolidation. Some residual perihilar atelectasis. New or increased small right pleural effusion. Left upper quadrant surgical drain Elevated ALP , improved -Abd US: Negative for gallstones. There is borderline gallbladder wall thickening, however. Most likely, this is reactive secondary to surrounding inflammation related to recent bowel perforation and surgery for such. However, the possibility of acalculous acute cholecystitis should be considered, and consideration for nuclear medicine hepatobiliary scanning if there is high clinical suspicion history of diarrhea, SP RAMSEY: Improved HTN COPD/asthma. Smoker. History of chronic constipation. Osteoarthritis. ? CAD/TX, hx PLAN: - Monitor pt off of AB Rx 08/10 SP IV Meropenem abx d#31 , Fluconazole # 21, Linezolid #18 , monitor pt off of AB Rx -weekly CBC/CMP --08/02 SP IV ampicillin #17 --07/21 Zosyn #4 --07/18 SP Ertapenem, PO Amoxicillin #3 --07/16 SP Cefepime #2 --07/12 SP Zosyn d# 6 --SP Rocephin d# 5 -surgery following midline wound closure needed -wound care -Trend WBC Subjective Allergies: Coded Allergies: No Known Allergies (Unverified , 01/20/17) Subjective no new complain Objective Vital Signs Last 24 Hour Vital Signs Date Time Temp Pulse Resp B/P (MAP) Pulse Ox O2 Delivery O2 Flow Rate FiO2 08/17/17 11:48 98.1 87 20 107/67 98 98.1 08/17/17 11:40 97.7 08/17/17 11:10 97.7 08/17/17 09:48 97.7 08/17/17 08:49 97.7 08/17/17 08:17 97.7 87 20 101/62 97 97.7 08/17/17 06:40 97.6 08/17/17 03:27 97.6 88 18 100/64 95 Room Air 2.0 21 97.6 08/17/17 00:23 98.2 08/16/17 23:51 98.2 111 18 106/65 97 98.2 08/16/17 21:53 96.6 08/16/17 19:56 96.6 89 18 111/74 99 96.6 08/16/17 18:13 97.3 08/16/17 15:40 97.3 92 20 106/65 97 97.3 08/16/17 13:46 98.2 08/16/17 13:16 98.2 08/16/17 13:12 92 18 109/75 Height (Feet): 5 Height (Inches): 9.00 Weight (Pounds): 107 HEENT: anicteric Respiratory/Chest: no respiratory distress Cardiovascular: no gallop/murmur Abdomen: no organomegaly Current Medications Medications (Trade) Dose Ordered Sig/Kayy Route PRN Reason Start Time Stop Time Status Last Admin Dose Admin Acetaminophen/ Hydrocodone Bitart ([place] 5/325) 1 tab Q4H PRN ORAL pain 1-5 08/16/17 19:00 08/26/17 18:59 08/17/17 08:49 Dextrose (Dextrose 50%) 25 ml STAT PRN IV HYPOGLYCEMIA 08/08/17 09:45 09/07/17 09:44 Diphenhydramine HCl (Benadryl) 25 mg Q6H PRN IVP Itching 07/25/17 17:00 08/24/17 16:59 08/17/17 11:41 Docusate Sodium (Colace) 100 mg TWICE A DAY ORAL 08/09/17 18:00 09/08/17 17:59 08/16/17 16:52 Famotidine (Pepcid) 40 mg QHS ORAL 08/08/17 21:00 09/07/17 20:59 08/16/17 21:43 Heparin Sodium (Porcine) (Heparin 5000 units/ml) 5,000 units EVERY 12 HOURS SUBQ 08/01/17 21:00 08/22/17 21:00 08/16/17 21:48 Hydromorphone HCl (Dilaudid) 1.5 mg Q4H PRN IVP for pain scale 6-10 08/16/17 19:00 08/26/17 18:59 08/17/17 11:10 Ondansetron HCl (Zofran) 4 mg Q6H PRN IVP Nausea & Vomiting 08/11/17 11:00 09/10/17 10:59 08/17/17 08:49 Potassium Chloride (K-Dur) 40 meq DAILY ORAL 07/20/17 09:00 08/19/17 08:59 08/17/17 08:48 Risperidone (RisperDAL) 4 mg BEDTIME ORAL 07/23/17 21:00 08/22/17 20:59 08/16/17 21:44 Rick Arvizu MD Aug 17, 2017 12:20
--- NOTE | 2017-08-17 13:16 | General Progress Note ---
Assessment/Plan Status: stable, progressing Assessment/Plan Schizophrenia CPT Encephalopathy PLAN: - increase the risperidone to 4 mg at bedtime. Subjective Date patient seen: Aug 17, 2017 Neurologic/Psychiatric: Reports: anxiety, depressed Allergies: Coded Allergies: No Known Allergies (Unverified , 01/20/17) Subjective the pt is calmer more organized. meds seeking Objective Last 24 Hour Vital Signs Date Time Temp Pulse Resp B/P (MAP) Pulse Ox O2 Delivery O2 Flow Rate FiO2 08/17/17 11:48 98.1 87 20 107/67 98 98.1 08/17/17 11:40 97.7 08/17/17 11:10 97.7 08/17/17 09:48 97.7 08/17/17 08:49 97.7 08/17/17 08:17 97.7 87 20 101/62 97 97.7 08/17/17 06:40 97.6 08/17/17 03:27 97.6 88 18 100/64 95 Room Air 2.0 21 97.6 08/17/17 00:23 98.2 08/16/17 23:51 98.2 111 18 106/65 97 98.2 08/16/17 21:53 96.6 08/16/17 19:56 96.6 89 18 111/74 99 96.6 08/16/17 18:13 97.3 08/16/17 15:40 97.3 92 20 106/65 97 97.3 08/16/17 13:46 98.2 Intake and Output 08/16/17 08/17/17 19:00 07:00 Intake Total 720 ml 30 ml Output Total 420 ml Balance 720 ml -390 ml Intake Oral 720 ml 30 ml Output Urine Total 420 ml # Voids 2 1 # Bowel Movements 1 2 Height (Feet): 5 Height (Inches): 9.00 Weight (Pounds): 107 Idalia Montanez M.D. Aug 17, 2017 13:16
[2017-08-17 15:23] VITALS: BP 101/68
--- NOTE | 2017-08-17 19:37 | Pulmonology Progress Note ---
Assessment/Plan Problems: (1) Perforated abdominal viscus (2) ARF (acute renal failure) (3) Psychosis (4) Acute constipation (5) Amphetamine abuse Assessment/Plan symptomatic treatmen f/u wbc and clinically check lbas iv fluids pain management med/surg all reviewed dc planning Subjective ROS Limited/Unobtainable: No Interval Events: late note for 08/16 Constitutional: Reports: no symptoms HEENT: Repors: no symptoms Allergies: Coded Allergies: No Known Allergies (Unverified , 01/20/17) Objective Last 24 Hour Vital Signs Date Time Temp Pulse Resp B/P (MAP) Pulse Ox O2 Delivery O2 Flow Rate FiO2 08/17/17 18:37 98.1 08/17/17 17:38 98.1 08/17/17 15:54 98.1 08/17/17 15:24 98.1 08/17/17 15:23 97.5 99 20 101/68 97 97.5 08/17/17 11:48 98.1 87 20 107/67 98 98.1 08/17/17 11:10 97.7 08/17/17 08:49 97.7 08/17/17 08:17 97.7 87 20 101/62 97 97.7 08/17/17 06:40 97.6 08/17/17 03:27 97.6 88 18 100/64 95 Room Air 2.0 21 97.6 08/17/17 00:23 98.2 08/16/17 23:51 98.2 111 18 106/65 97 98.2 08/16/17 21:53 96.6 08/16/17 19:56 96.6 89 18 111/74 99 96.6 Intake and Output 08/16/17 08/17/17 19:00 07:00 Intake Total 720 ml 30 ml Output Total 420 ml Balance 720 ml -390 ml Intake Oral 720 ml 30 ml Output Urine Total 420 ml # Voids 2 1 # Bowel Movements 1 2 Objective General Appearance: WD/WN Lines, tubes and drains: peripheral HEENT: normocephalic, atraumatic Neck: non-tender, normal alignment Respiratory/Chest: chest wall non-tender, lungs clear Breasts: no masses Cardiovascular/Chest: normal peripheral pulses, normal rate Abdomen: normal bowel sounds, clean dressing Genitourinary/Rectal: normal genital exam, heme negative stool Extremities: normal range of motion, non-tender Skin Exam: normal pigmentation Current Medications Medications (Trade) Dose Ordered Sig/Kayy Route PRN Reason Start Time Stop Time Status Last Admin Dose Admin Acetaminophen/ Hydrocodone Bitart ([place] 5/325) 1 tab Q4H PRN ORAL pain 1-5 08/16/17 19:00 08/26/17 18:59 08/17/17 17:38 Dextrose (Dextrose 50%) 25 ml STAT PRN IV HYPOGLYCEMIA 08/08/17 09:45 09/07/17 09:44 Diphenhydramine HCl (Benadryl) 25 mg Q6H PRN IVP Itching 07/25/17 17:00 08/24/17 16:59 08/17/17 18:28 Docusate Sodium (Colace) 100 mg TWICE A DAY ORAL 08/09/17 18:00 09/08/17 17:59 08/17/17 17:37 Famotidine (Pepcid) 40 mg QHS ORAL 08/08/17 21:00 09/07/17 20:59 08/16/17 21:43 Heparin Sodium (Porcine) (Heparin 5000 units/ml) 5,000 units EVERY 12 HOURS SUBQ 08/01/17 21:00 08/22/17 21:00 08/16/17 21:48 Hydromorphone HCl (Dilaudid) 1.5 mg Q4H PRN IVP for pain scale 6-10 08/16/17 19:00 08/26/17 18:59 08/17/17 15:24 Ondansetron HCl (Zofran) 4 mg Q6H PRN IVP Nausea & Vomiting 08/11/17 11:00 09/10/17 10:59 08/17/17 08:49 Potassium Chloride (K-Dur) 40 meq DAILY ORAL 07/20/17 09:00 08/19/17 08:59 08/17/17 08:48 Risperidone (RisperDAL) 4 mg BEDTIME ORAL 07/23/17 21:00 08/22/17 20:59 08/16/17 21:44 Brenda Martel MD Aug 17, 2017 19:37
--- NOTE | 2017-08-17 19:38 | Pulmonology Progress Note ---
Assessment/Plan Problems: (1) Perforated abdominal viscus (2) ARF (acute renal failure) (3) Psychosis (4) Acute constipation (5) Amphetamine abuse Assessment/Plan symptomatic treatmen f/u wbc and clinically pain management med/surg all reviewed dc planning Subjective ROS Limited/Unobtainable: No Interval Events: no new complains Allergies: Coded Allergies: No Known Allergies (Unverified , 01/20/17) Objective Last 24 Hour Vital Signs Date Time Temp Pulse Resp B/P (MAP) Pulse Ox O2 Delivery O2 Flow Rate FiO2 08/17/17 18:37 98.1 08/17/17 17:38 98.1 08/17/17 15:54 98.1 08/17/17 15:24 98.1 08/17/17 15:23 97.5 99 20 101/68 97 97.5 08/17/17 11:48 98.1 87 20 107/67 98 98.1 08/17/17 11:10 97.7 08/17/17 08:49 97.7 08/17/17 08:17 97.7 87 20 101/62 97 97.7 08/17/17 06:40 97.6 08/17/17 03:27 97.6 88 18 100/64 95 Room Air 2.0 21 97.6 08/17/17 00:23 98.2 08/16/17 23:51 98.2 111 18 106/65 97 98.2 08/16/17 21:53 96.6 08/16/17 19:56 96.6 89 18 111/74 99 96.6 Intake and Output 08/16/17 08/17/17 19:00 07:00 Intake Total 720 ml 30 ml Output Total 420 ml Balance 720 ml -390 ml Intake Oral 720 ml 30 ml Output Urine Total 420 ml # Voids 2 1 # Bowel Movements 1 2 Objective General Appearance: WD/WN Lines, tubes and drains: peripheral HEENT: normocephalic, atraumatic Neck: non-tender, normal alignment Respiratory/Chest: chest wall non-tender, lungs clear Breasts: no masses Cardiovascular/Chest: normal peripheral pulses, normal rate Abdomen: normal bowel sounds, clean dressing Genitourinary/Rectal: normal genital exam, heme negative stool Extremities: normal range of motion, non-tender Skin Exam: normal pigmentation Current Medications Medications (Trade) Dose Ordered Sig/Kayy Route PRN Reason Start Time Stop Time Status Last Admin Dose Admin Acetaminophen/ Hydrocodone Bitart ([place] 5/325) 1 tab Q4H PRN ORAL pain 1-5 08/16/17 19:00 08/26/17 18:59 08/17/17 17:38 Dextrose (Dextrose 50%) 25 ml STAT PRN IV HYPOGLYCEMIA 08/08/17 09:45 09/07/17 09:44 Diphenhydramine HCl (Benadryl) 25 mg Q6H PRN IVP Itching 07/25/17 17:00 08/24/17 16:59 08/17/17 18:28 Docusate Sodium (Colace) 100 mg TWICE A DAY ORAL 08/09/17 18:00 09/08/17 17:59 08/17/17 17:37 Famotidine (Pepcid) 40 mg QHS ORAL 08/08/17 21:00 09/07/17 20:59 08/16/17 21:43 Heparin Sodium (Porcine) (Heparin 5000 units/ml) 5,000 units EVERY 12 HOURS SUBQ 08/01/17 21:00 08/22/17 21:00 08/16/17 21:48 Hydromorphone HCl (Dilaudid) 1.5 mg Q4H PRN IVP for pain scale 6-10 08/16/17 19:00 08/26/17 18:59 08/17/17 15:24 Ondansetron HCl (Zofran) 4 mg Q6H PRN IVP Nausea & Vomiting 08/11/17 11:00 09/10/17 10:59 08/17/17 08:49 Potassium Chloride (K-Dur) 40 meq DAILY ORAL 07/20/17 09:00 08/19/17 08:59 08/17/17 08:48 Risperidone (RisperDAL) 4 mg BEDTIME ORAL 07/23/17 21:00 08/22/17 20:59 08/16/17 21:44 Brenda Martel MD Aug 17, 2017 19:38
[2017-08-17 19:56] VITALS: BP 107/68
--- NOTE | 2017-08-17 22:51 | General Progress Note ---
Assessment/Plan Assessment/Plan #. Anemia, likely due to chronic disease. --> No occult blood. H/H stable at this time. --> Monitor and trend cbc daily. --> Anemia workup reviewed. --> Iron 24, TIBC 173, Ferritin 513, B12 424, Folate 9.5, TSH 4.2 --> Does not need blood transfusion unless symptomatic or hgb <7 #. Perforation of viscus and pneumoperitoneum, currently improving. --> Continue to closely monitor. Peripheral smear reviewed as well. --> exam with peritonitis generalized but with focus in LLQ. #. Rhabdomyolysis, currently improved with administration of IV fluids. #. Hypoalbuminemia, likely secondary to decreased p.o. intake, monitor malnutrition. --> Due to elevated CPK of 1543, resolved at this time. #. Pneumoperitoneum. #. Pleuritic chest pain. On pain management. #. Chronic constipation. #. Schizophrenia, paranoid type. --> On risperidone. #. Smoker. #. Amphetamine use. #. Perforated left colon with prolonged inflammatory reaction, gross spillage, bowel ischemia. #. Wound Care. #. Leukocytosis. --> Wbc count downtrended from yesterday and resolved at this time. #. Discharge planning. Subjective Date patient seen: Aug 16, 2017 Constitutional: Denies: no symptoms, chills, diaphoresis, fever, malaise, weakness, other HEENT: Denies: no symptoms, eye pain, blurred vision, tearing, double vision, ear pain, ear discharge, nose pain, nose congestion, throat pain, throat swelling, mouth pain, mouth swelling, other Cardiovascular: Denies: no symptoms, chest pain, edema, irregular heart rate, lightheadedness, palpitations, syncope, other Respiratory: Denies: no symptoms, cough, orthopnea, shortness of breath, SOB with excertion, SOB at rest, sputum, stridor, wheezing, other Gastrointestinal/Abdominal: Denies: no symptoms, abdomen distended, abdominal pain, black stools, tarry stools, blood in stool, constipated, diarrhea, difficulty swallowing, nausea, poor appetite, poor fluid intake, rectal bleeding , vomiting, other Genitourinary: Denies: no symptoms, burning, discharge, frequency, flank pain, hematuria, incontinence, pain, urgency, other Neurologic/Psychiatric: Denies: no symptoms, anxiety, depressed, emotional problems, headache, numbness, paresthesia, pre-existing deficit, seizure, tingling, tremors, weakness, other Endocrine: Denies: no symptoms, excessive sweating, flushing, intolerance to cold, intolerance to heat, increased hunger, increased thirst, increased urine, unexplained weight gain, unexplained weight loss, other Hematologic/Lymphatic: Reports: anemia Allergies: Coded Allergies: No Known Allergies (Unverified , 01/20/17) Subjective Confused. No new events. Objective Last 24 Hour Vital Signs Date Time Temp Pulse Resp B/P (MAP) Pulse Ox O2 Delivery O2 Flow Rate FiO2 08/17/17 22:11 97.9 08/17/17 20:29 97.9 08/17/17 19:59 97.9 08/17/17 19:56 97.9 89 20 107/68 97 Room Air 97.9 08/17/17 18:37 98.1 08/17/17 17:38 98.1 08/17/17 15:24 98.1 08/17/17 15:23 97.5 99 20 101/68 97 97.5 08/17/17 11:48 98.1 87 20 107/67 98 98.1 08/17/17 11:10 97.7 08/17/17 08:49 97.7 08/17/17 08:17 97.7 87 20 101/62 97 97.7 08/17/17 06:40 97.6 08/17/17 03:27 97.6 88 18 100/64 95 Room Air 2.0 21 97.6 08/17/17 00:23 98.2 08/16/17 23:51 98.2 111 18 106/65 97 98.2 Intake and Output 08/16/17 08/17/17 19:00 07:00 Intake Total 720 ml 30 ml Output Total 420 ml Balance 720 ml -390 ml Intake Oral 720 ml 30 ml Output Urine Total 420 ml # Voids 2 1 # Bowel Movements 1 2 Height (Feet): 5 Height (Inches): 9.00 Weight (Pounds): 107 General Appearance: confused Respiratory/Chest: decreased breath sounds Tashi Brown MD Aug 17, 2017 22:50
[2017-08-18] VITALS: BP 101/57
[2017-08-18] MEDS: DiphenhydrAMINE 50mg/ml Inj IVP PRN ×2 (03:05→11:57)
[2017-08-18 04:00] VITALS: BP 107/68
[2017-08-18 07:57] VITALS: BP 111/70
[2017-08-18] MEDS: Heparin 5000 units/ml inj SUBQ SCH ×2 (09:02→20:59)
[2017-08-18] MEDS: Docusate 100mg cap ORAL SCH ×2 (09:03→17:32)
--- NOTE | 2017-08-18 09:36 | Nephrology Progress Note ---
Assessment/Plan Problem List: (1) ARF (acute renal failure) (2) UTI (urinary tract infection) (3) Psychiatric disorder (4) Acute abdomen Assessment Status: Na now up to 135 WBCs wnl had multi abdominal drains acute renal failure- extended left colectomy due to perf transverse colostomy creation Plan Plan: low Na ... improving...work up intitiated .....likely SIADH PO Fluid Restriction DC lasix IV per charles, 07/20/17 Mag and K supplement as needed Post op ( OP 07/08/17) Dickens- 2D echo normal Ej Fx Albumin bollous monitor renal parameters K and Phos and Mag supplement as needed Subjective ROS Limited/Unobtainable: No Objective Objective Last 24 Hour Vital Signs Date Time Temp Pulse Resp B/P (MAP) Pulse Ox O2 Delivery O2 Flow Rate FiO2 08/18/17 07:57 97.8 99 20 111/70 96 97.8 08/18/17 04:00 98.1 86 19 107/68 95 Room Air 98.1 08/18/17 01:50 98.1 08/18/17 01:20 98.1 08/18/17 00:00 98.1 98 17 101/57 96 Room Air 98.1 08/17/17 23:10 97.9 08/17/17 22:11 97.9 08/17/17 19:59 97.9 08/17/17 19:56 97.9 89 20 107/68 97 Room Air 97.9 08/17/17 17:38 98.1 08/17/17 15:24 98.1 08/17/17 15:23 97.5 99 20 101/68 97 97.5 08/17/17 11:48 98.1 87 20 107/67 98 98.1 08/17/17 11:10 97.7 Intake and Output 08/17/17 08/18/17 19:00 07:00 Intake Total 720 ml Balance 720 ml Intake Oral 720 ml # Voids 3 Height (Feet): 5 Height (Inches): 9.00 Weight (Pounds): 105 General Appearance: no apparent distress Objective no other change NOEMY MARK Aug 18, 2017 09:36
--- NOTE | 2017-08-18 11:27 | General Surgery Progress Note ---
General Surgery-Progress Note Subjective Procedure Performed exploratory laparotomy, abdominal washout, evacuation of abscess, drain placement and abdominal closure Symptoms: improved Additional Comments no acute events. Objective Last 24 Hour Vital Signs Date Time Temp Pulse Resp B/P (MAP) Pulse Ox O2 Delivery O2 Flow Rate FiO2 08/18/17 07:57 97.8 99 20 111/70 96 97.8 08/18/17 04:00 98.1 86 19 107/68 95 Room Air 98.1 08/18/17 01:50 98.1 08/18/17 01:20 98.1 08/18/17 00:00 98.1 98 17 101/57 96 Room Air 98.1 08/17/17 23:10 97.9 08/17/17 22:11 97.9 08/17/17 19:59 97.9 08/17/17 19:56 97.9 89 20 107/68 97 Room Air 97.9 08/17/17 17:38 98.1 08/17/17 15:24 98.1 08/17/17 15:23 97.5 99 20 101/68 97 97.5 08/17/17 11:48 98.1 87 20 107/67 98 98.1 I&O Intake and Output 08/17/17 08/18/17 19:00 07:00 Intake Total 720 ml Balance 720 ml Intake Oral 720 ml # Voids 3 Dressing: dry Wound: clean, dry, intact Drains: none Cardiovascular: RSR Respiratory: clear Abdomen: soft, flat, non-tender, present bowel sounds Extremities: no cyanosis Assessment Post-op Diagnosis abdominal dehiscence, intraabdominal abscess Plan Problems: (1) Perforated abdominal viscus Assessment & Plan: perforated abdominal viscus as noted on CT. exam with peritonitis generalized but with focus in LLQ. history of psych illness but currently AAOx4 and cooperative with exam. poor historian. possible drug seeking behavior. s/p Ex lap with abdominal washout, left colectomy and creation of transverse colostomy. Noted to have larger perforation in sigmoid likely stercoarl given operative findings. large left perisplenic abscess evacuated. drains placed. post operatively improved but after a few days noted to have purulent drainage out of left upper quadrant drain. CT demonstrated reaccumulation of large complex abscess despite extensive washout on initial operation. IR drain placed and pus evacuated but could not resolve complex collection. micro with multiorganism. midline wound dehiscence. decision made for re-exploration with washout, drains, and midline closure. s/p re-exploration with washout, drains, and midline closure on 07/20. large complex abscess noted, evacuated, washout, drains placed. midline fascia closed. doing well. recovering. improved pain afebrile, HD stable, labs reviewed. All surgical drains removed now. upon removal minimal serous output. exam benign. Repeat CT noted. no abscess noted. liver fluid collections do not look like abscess and are likely subcapsular trauma from surgery. leukocytosis resolved. -midline wound packing and dressings TID -at this point he looks much better and is improving. labs okay. abdomen benign. wound clean. ostomy functional. d/c planning to SNF for IV ABX and recovery. will need to have midline dressing changes for a few weeks until ready for either primary closure or skin graft. okay to d/c from surgical standpoint Gilberto Michelle Aug 18, 2017 11:27
[2017-08-18 11:52] VITALS: BP 113/68
[2017-08-18] MEDS: Norco 5mg/325mg tab ORAL PRN ×2 (15:18→23:58)
--- NOTE | 2017-08-18 15:18 | Pulmonology Progress Note ---
Assessment/Plan Problems: (1) Perforated abdominal viscus (2) ARF (acute renal failure) (3) Psychosis (4) Acute constipation (5) Amphetamine abuse Assessment/Plan symptomatic treatmen f/u wbc and clinically pain management med/surg all reviewed dc planning Subjective ROS Limited/Unobtainable: No Constitutional: Reports: no symptoms HEENT: Repors: no symptoms Respiratory: Reports: no symptoms Allergies: Coded Allergies: No Known Allergies (Unverified , 01/20/17) Objective Last 24 Hour Vital Signs Date Time Temp Pulse Resp B/P (MAP) Pulse Ox O2 Delivery O2 Flow Rate FiO2 08/18/17 11:52 98.0 96 20 113/68 96 98.0 08/18/17 07:57 97.8 99 20 111/70 96 97.8 08/18/17 04:00 98.1 86 19 107/68 95 Room Air 98.1 08/18/17 01:50 98.1 08/18/17 01:20 98.1 08/18/17 00:00 98.1 98 17 101/57 96 Room Air 98.1 08/17/17 23:10 97.9 08/17/17 22:11 97.9 08/17/17 19:59 97.9 08/17/17 19:56 97.9 89 20 107/68 97 Room Air 97.9 08/17/17 17:38 98.1 08/17/17 15:24 98.1 08/17/17 15:23 97.5 99 20 101/68 97 97.5 Intake and Output 08/17/17 08/18/17 19:00 07:00 Intake Total 720 ml Balance 720 ml Intake Oral 720 ml # Voids 3 Objective General Appearance: WD/WN Lines, tubes and drains: peripheral HEENT: normocephalic, atraumatic Neck: non-tender, normal alignment Respiratory/Chest: chest wall non-tender, lungs clear Breasts: no masses Cardiovascular/Chest: normal peripheral pulses, normal rate Abdomen: normal bowel sounds, clean dressing Genitourinary/Rectal: normal genital exam, heme negative stool Extremities: normal range of motion, non-tender Skin Exam: normal pigmentation Current Medications Medications (Trade) Dose Ordered Sig/Kayy Route PRN Reason Start Time Stop Time Status Last Admin Dose Admin Acetaminophen/ Hydrocodone Bitart ([place] 5/325) 1 tab Q4H PRN ORAL pain 1-5 08/16/17 19:00 08/26/17 18:59 08/17/17 22:11 Dextrose (Dextrose 50%) 25 ml STAT PRN IV HYPOGLYCEMIA 08/08/17 09:45 09/07/17 09:44 Diphenhydramine HCl (Benadryl) 25 mg Q6H PRN IVP Itching 07/25/17 17:00 08/24/17 16:59 08/18/17 11:57 Docusate Sodium (Colace) 100 mg TWICE A DAY ORAL 08/09/17 18:00 09/08/17 17:59 08/18/17 09:03 Famotidine (Pepcid) 40 mg QHS ORAL 08/08/17 21:00 09/07/17 20:59 08/17/17 22:10 Heparin Sodium (Porcine) (Heparin 5000 units/ml) 5,000 units EVERY 12 HOURS SUBQ 08/01/17 21:00 08/22/17 21:00 08/18/17 09:02 Hydromorphone HCl (Dilaudid) 1.5 mg Q4H PRN IVP for pain scale 6-10 08/16/17 19:00 08/26/17 18:59 08/18/17 13:13 Ondansetron HCl (Zofran) 4 mg Q6H PRN IVP Nausea & Vomiting 08/11/17 11:00 09/10/17 10:59 08/18/17 09:03 Potassium Chloride (K-Dur) 40 meq DAILY ORAL 07/20/17 09:00 08/19/17 08:59 08/18/17 09:03 Risperidone (RisperDAL) 4 mg BEDTIME ORAL 07/23/17 21:00 08/22/17 20:59 08/17/17 22:11 Brenda Martel MD Aug 18, 2017 15:18
[2017-08-18 15:47] VITALS: BP 105/73
[2017-08-18 20:00] VITALS: BP 106/70
--- NOTE | 2017-08-18 23:43 | General Progress Note ---
Assessment/Plan Assessment/Plan #. Anemia, likely due to chronic disease. --> No occult blood. H/H stable at this time. --> Monitor and trend cbc daily. --> Anemia workup reviewed. --> Iron 24, TIBC 173, Ferritin 513, B12 424, Folate 9.5, TSH 4.2 --> Does not need blood transfusion unless symptomatic or hgb <7 #. Perforation of viscus and pneumoperitoneum, currently improving. --> Continue to closely monitor. Peripheral smear reviewed as well. --> exam with peritonitis generalized but with focus in LLQ. #. Rhabdomyolysis, currently improved with administration of IV fluids. #. Hypoalbuminemia, likely secondary to decreased p.o. intake, monitor malnutrition. --> Due to elevated CPK of 1543, resolved at this time. #. Pneumoperitoneum. #. Pleuritic chest pain. On pain management. #. Chronic constipation. #. Schizophrenia, paranoid type. --> On risperidone. #. Psychosis. #. Smoker. #. Amphetamine use. #. Perforated left colon with prolonged inflammatory reaction, gross spillage, bowel ischemia. #. Wound Care. #. Leukocytosis. --> Wbc count downtrended from yesterday and resolved at this time. #. Discharge planning. Subjective Date patient seen: Aug 17, 2017 Constitutional: Denies: no symptoms, chills, diaphoresis, fever, malaise, weakness, other HEENT: Denies: no symptoms, eye pain, blurred vision, tearing, double vision, ear pain, ear discharge, nose pain, nose congestion, throat pain, throat swelling, mouth pain, mouth swelling, other Cardiovascular: Denies: no symptoms, chest pain, edema, irregular heart rate, lightheadedness, palpitations, syncope, other Respiratory: Denies: no symptoms, cough, orthopnea, shortness of breath, SOB with excertion, SOB at rest, sputum, stridor, wheezing, other Gastrointestinal/Abdominal: Denies: no symptoms, abdomen distended, abdominal pain, black stools, tarry stools, blood in stool, constipated, diarrhea, difficulty swallowing, nausea, poor appetite, poor fluid intake, rectal bleeding , vomiting, other Genitourinary: Denies: no symptoms, burning, discharge, frequency, flank pain, hematuria, incontinence, pain, urgency, other Neurologic/Psychiatric: Denies: no symptoms, anxiety, depressed, emotional problems, headache, numbness, paresthesia, pre-existing deficit, seizure, tingling, tremors, weakness, other Hematologic/Lymphatic: Reports: anemia Allergies: Coded Allergies: No Known Allergies (Unverified , 01/20/17) Subjective Confused. On pain control. No fever. Objective Last 24 Hour Vital Signs Date Time Temp Pulse Resp B/P (MAP) Pulse Ox O2 Delivery O2 Flow Rate FiO2 08/18/17 20:00 97.5 93 19 106/70 99 97.5 08/18/17 16:00 Room Air 08/18/17 15:47 98.2 74 20 105/73 96 98.2 08/18/17 12:00 Room Air 08/18/17 11:52 98.0 96 20 113/68 96 98.0 08/18/17 08:00 Room Air 08/18/17 07:57 97.8 99 20 111/70 96 97.8 08/18/17 04:00 98.1 86 19 107/68 95 Room Air 98.1 08/18/17 01:50 98.1 08/18/17 01:20 98.1 08/18/17 00:00 98.1 98 17 101/57 96 Room Air 98.1 Intake and Output 08/17/17 08/18/17 19:00 07:00 Intake Total 720 ml Balance 720 ml Intake Oral 720 ml # Voids 3 Height (Feet): 5 Height (Inches): 9.00 Weight (Pounds): 105 General Appearance: no apparent distress Respiratory/Chest: decreased breath sounds Tashi Brown MD Aug 18, 2017 23:43
[2017-08-19 00:21] VITALS: BP 110/66
[2017-08-19] MEDS: Docusate 100mg cap ORAL SCH ×2 (09:00→18:17)
[2017-08-19] MEDS: Heparin 5000 units/ml inj SUBQ SCH ×2 (09:00→20:31)
[2017-08-19 12:00] VITALS: BP 110/65
[2017-08-19] MEDS: Norco 5mg/325mg tab ORAL PRN ×3 (12:24→20:57)
[2017-08-19] MEDS ORDERED: Tums 500mg ORAL PRN (13:30)
--- NOTE | 2017-08-19 14:21 | Pulmonology Progress Note ---
Assessment/Plan Problems: (1) Perforated abdominal viscus (2) ARF (acute renal failure) (3) Psychosis (4) Acute constipation (5) Amphetamine abuse Assessment/Plan symptomatic treatment f/u wbc and clinically pain management med/surg all reviewed dc planning Subjective ROS Limited/Unobtainable: No Constitutional: Reports: no symptoms HEENT: Repors: no symptoms Respiratory: Reports: no symptoms Allergies: Coded Allergies: No Known Allergies (Unverified , 01/20/17) Objective Last 24 Hour Vital Signs Date Time Temp Pulse Resp B/P (MAP) Pulse Ox O2 Delivery O2 Flow Rate FiO2 08/19/17 12:00 98.1 71 20 110/65 97 98.1 08/19/17 00:21 97.7 89 18 110/66 99 97.7 08/18/17 23:58 97.5 08/18/17 20:00 97.5 93 19 106/70 99 97.5 08/18/17 16:00 Room Air 08/18/17 15:47 98.2 74 20 105/73 96 98.2 Intake and Output 08/18/17 08/19/17 19:00 07:00 Intake Total 480 ml 720 ml Balance 480 ml 720 ml Intake Oral 480 ml 720 ml # Voids 3 4 Objective General Appearance: WD/WN Lines, tubes and drains: peripheral HEENT: normocephalic, atraumatic Neck: non-tender, normal alignment Respiratory/Chest: chest wall non-tender, lungs clear Breasts: no masses Cardiovascular/Chest: normal peripheral pulses, normal rate Abdomen: normal bowel sounds, clean dressing Genitourinary/Rectal: normal genital exam, heme negative stool Extremities: normal range of motion, non-tender Skin Exam: normal pigmentation Current Medications Medications (Trade) Dose Ordered Sig/Kayy Route PRN Reason Start Time Stop Time Status Last Admin Dose Admin Acetaminophen/ Hydrocodone Bitart ([place] 5/325) 1 tab Q4H PRN ORAL pain 1-5 08/16/17 19:00 08/26/17 18:59 08/19/17 12:24 Calcium Carbonate (Tums) 1,000 mg Q4H PRN ORAL heartburn 08/19/17 13:30 09/18/17 13:29 Dextrose (Dextrose 50%) 25 ml STAT PRN IV HYPOGLYCEMIA 08/08/17 09:45 09/07/17 09:44 Diphenhydramine HCl (Benadryl) 25 mg Q6H PRN IVP Itching 07/25/17 17:00 08/24/17 16:59 08/18/17 11:57 Docusate Sodium (Colace) 100 mg TWICE A DAY ORAL 08/09/17 18:00 09/08/17 17:59 08/18/17 17:32 Famotidine (Pepcid) 40 mg QHS ORAL 08/08/17 21:00 09/07/17 20:59 08/18/17 20:57 Heparin Sodium (Porcine) (Heparin 5000 units/ml) 5,000 units EVERY 12 HOURS SUBQ 08/01/17 21:00 08/22/17 21:00 08/18/17 20:59 Hydromorphone HCl (Dilaudid) 1.5 mg Q4H PRN IVP for pain scale 6-10 08/16/17 19:00 08/26/17 18:59 08/19/17 10:36 Ondansetron HCl (Zofran) 4 mg Q6H PRN IVP Nausea & Vomiting 08/11/17 11:00 09/10/17 10:59 08/19/17 10:35 Risperidone (RisperDAL) 4 mg BEDTIME ORAL 07/23/17 21:00 08/22/17 20:59 08/18/17 20:57 Brenda Martel MD Aug 19, 2017 14:21
[2017-08-19 16:00] VITALS: BP 116/66
--- NOTE | 2017-08-19 16:35 | Nephrology Progress Note ---
Assessment/Plan Problem List: (1) ARF (acute renal failure) (2) UTI (urinary tract infection) (3) Psychiatric disorder (4) Acute abdomen Assessment Status: Na now up to 135 WBCs wnl had multi abdominal drains acute renal failure- extended left colectomy due to perf transverse colostomy creation Plan Plan: low Na ... improving...work up intitiated .....likely SIADH PO Fluid Restriction DC lasix IV per charles, 07/20/17 Mag and K supplement as needed Post op ( OP 07/08/17) Dickens- 2D echo normal Ej Fx Albumin bollous monitor renal parameters K and Phos and Mag supplement as needed Subjective ROS Limited/Unobtainable: No Objective Objective Last 24 Hour Vital Signs Date Time Temp Pulse Resp B/P (MAP) Pulse Ox O2 Delivery O2 Flow Rate FiO2 08/19/17 16:00 97.2 70 20 116/66 98 97.2 08/19/17 12:00 98.1 71 20 110/65 97 98.1 08/19/17 00:21 97.7 89 18 110/66 99 97.7 08/18/17 23:58 97.5 08/18/17 20:00 97.5 93 19 106/70 99 97.5 Intake and Output 08/18/17 08/19/17 19:00 07:00 Intake Total 480 ml 720 ml Balance 480 ml 720 ml Intake Oral 480 ml 720 ml # Voids 3 4 Height (Feet): 5 Height (Inches): 9.00 Weight (Pounds): 105 General Appearance: no apparent distress Objective no other change NOEMY MARK Aug 19, 2017 16:35
[2017-08-19 20:00] VITALS: BP 111/66
--- NOTE | 2017-08-19 22:39 | Infectious Diseases Prog Note ---
Assessment/Plan Assessment/Plan ASSESSMENT: The patient is a 46-year-old male with; Bowel perf w/ development of 2 Abscess (subphrenic and pelvic) Cx: E coli( ESBL) and ENTEROCOCCUS AVIUM (turcios S) and Bact Fragilis - s/p I+D x2- , SP resolution of abscess -CT abd/p w/ 08/02: Mostly resolved left upper quadrant and right upper quadrant fluid collections, post surgical evacuation. Minimal residual fluid as described. Appearance of the residual fluid is nonspecific as regards whether or not infected. Other postsurgical changes, as described, including the minimal residual pneumoperitoneum, surgical drain removal. 2 new fluid collections within the liver, could represent small hepatic abscesses versus noninfected acquired fluid collections, possibly related to surgical trauma. Dilated proximal small bowel, gradually narrowing to normal caliber more distally. No evidence of obstruction, as ingested contrast is seen to traverse the entirety of the GI tract. Small splenic hilar, gastric varices. This, in combination with mesenteric congestion, could indicate portal hypertension. However, no morphologic changes of the liver to suggest cirrhosis are evident. Moderate right pleural effusion, slightly decreased in size from the previous study. Trace left pleural effusion, significantly decreased in size from the previous study. Gas within the bladder. Probably related to recent instrumentation. If there is no history of recent Dickens catheterization, however , the possibility of emphysematous cystitis should be considered -s/p exploratory laparotomy, abdominal washout, evacuation of abscess, drain placement and abdominal closure 07/20; cx not received in the lab -s/p CT guided drainage APOLLO fluid collection 07/19: Aspiration and drainage of left upper quadrant collection, yielding 150 mL of carin pus. Note that the collection could only be partially evacuated, however, despite confirmation of apparent adequate position of the drain.This may indicate high viscosity of the contents; cx E. fecalis (turcios S), PREVOTELLA LOESCHEII (Aumgentin, Clinda R; Metronidazole S) s/p ex lap with left colectomy and transverse colostomy for perforated left colon, evacuation of intrabd abscess, abd washout w/ drain placement 07/09 -CT abd/p w/ 07/18: Postsurgical changes, as described, status post transverse colectomy, Jazz procedure, and placement of multiple surgical drains. Left upper quadrant intraperitoneal fluid collection, despite the presence of a surgical drain in the center of the collection. The presence of gas bubbles within rather than floating nondependently in the collection indicate that this fluid may be viscous. 2 other significant intraperitoneal collections,which do not appear to communicate, possibly loculated. Given presence of somewhat thick enhancing rim surrounding all of these, infected collections are certainly possible ( left paracolic gutter 5.8 cmx 4.3 cm x 8.3cm and R paracolic gutter, medial and inferior to tip R hepatic lobe 8cm x 6.4cm x8cm). Other than the gas within the left upper quadrant collection, previously demonstrated pneumoperitoneum has largely resolved. Left upper quadrant thick walled small bowel loops. Possibly reactive due to adjacent inflammation, enteritis is also possible. No evidence of bowel obstruction. Gallbladder wall edema versus pericholecystic fluid. -OR findings: The omentum was significantly thickened and adhesed to the small bowel and into the left lower quadrant. There was significant inflammatory process throughout the abdomen including a thickening of almost the entire peritoneal lining. The proximal portion of the jejunum was significantly thickened and had a rind of inflammatory infectious tissue on it. left transverse and descending colon, there was significant amount of thickening and significant disease process with some areas of mild ischemia noted and in the descending colon around the descending and sigmoid junction, there was a gross perforation with grossspillage of bowel contents noted in the area. there was a fluid collection/pelvic abscess, which was evacuated. There was a fluid collection in the right upper quadrant around the liver, which was evacuated and a large left upper quadrant subphrenic abscess with significant tissue rind and thickening around the stomach, spleen, peritoneum, and diaphragm in that location. CT : Evidence of perforation of hollow viscus with extensive amount of free air in the upper abdomen and some free fluid is well. Fever, SP Leukocytosis SP -07/31 Cdiff neg -07/15 Bcx Neg ?PNA, SP Rx -CXR 07/31: Improved left basilar consolidation, since 07/15/2017. Some residual atelectasis and possibly minimal residual consolidation. Decreased but persistent pleural fluid on the left. Resolved right mid and lower lung consolidation. Some residual perihilar atelectasis. New or increased small right pleural effusion. Left upper quadrant surgical drain Elevated ALP , improved -Abd US: Negative for gallstones. There is borderline gallbladder wall thickening, however. Most likely, this is reactive secondary to surrounding inflammation related to recent bowel perforation and surgery for such. However, the possibility of acalculous acute cholecystitis should be considered, and consideration for nuclear medicine hepatobiliary scanning if there is high clinical suspicion history of diarrhea, SP RAMSEY: Improved HTN COPD/asthma. Smoker. History of chronic constipation. Osteoarthritis. ? CAD/RI, hx PLAN: - Monitor pt off of AB Rx 08/10 SP IV Meropenem abx d#31 , Fluconazole # 21, Linezolid #18 , monitor pt off of AB Rx -weekly CBC/CMP --08/02 SP IV ampicillin #17 --07/21 Zosyn #4 --07/18 SP Ertapenem, PO Amoxicillin #3 --07/16 SP Cefepime #2 --07/12 SP Zosyn d# 6 --SP Rocephin d# 5 -surgery following midline wound closure needed -wound care -Trend WBC Subjective Constitutional: Denies: no symptoms, fever, chills, fatigue, anorexia, drenching sweats, other Allergies: Coded Allergies: No Known Allergies (Unverified , 01/20/17) Subjective no new complain Objective Vital Signs Last 24 Hour Vital Signs Date Time Temp Pulse Resp B/P (MAP) Pulse Ox O2 Delivery O2 Flow Rate FiO2 08/19/17 20:00 96.4 70 18 111/66 100 Room Air 96.4 08/19/17 16:00 Room Air 08/19/17 16:00 97.2 70 20 116/66 98 97.2 08/19/17 12:00 98.1 71 20 110/65 97 98.1 08/19/17 12:00 Room Air 08/19/17 00:21 97.7 89 18 110/66 99 97.7 08/18/17 23:58 97.5 Height (Feet): 5 Height (Inches): 9.00 Weight (Pounds): 105 HEENT: anicteric Respiratory/Chest: no respiratory distress Cardiovascular: regular rhythm Abdomen: no organomegaly Current Medications Medications (Trade) Dose Ordered Sig/Kayy Route PRN Reason Start Time Stop Time Status Last Admin Dose Admin Acetaminophen/ Hydrocodone Bitart ([place] 5/325) 1 tab Q4H PRN ORAL pain 1-5 08/16/17 19:00 08/26/17 18:59 08/19/17 20:57 Calcium Carbonate (Tums) 1,000 mg Q4H PRN ORAL heartburn 08/19/17 13:30 09/18/17 13:29 08/19/17 14:34 Dextrose (Dextrose 50%) 25 ml STAT PRN IV HYPOGLYCEMIA 08/08/17 09:45 09/07/17 09:44 Diphenhydramine HCl (Benadryl) 25 mg Q6H PRN IVP Itching 07/25/17 17:00 08/24/17 16:59 08/18/17 11:57 Docusate Sodium (Colace) 100 mg TWICE A DAY ORAL 08/09/17 18:00 09/08/17 17:59 08/19/17 18:17 Famotidine (Pepcid) 40 mg QHS ORAL 08/08/17 21:00 09/07/17 20:59 08/19/17 20:27 Heparin Sodium (Porcine) (Heparin 5000 units/ml) 5,000 units EVERY 12 HOURS SUBQ 08/01/17 21:00 08/22/17 21:00 08/19/17 20:31 Hydromorphone HCl (Dilaudid) 1.5 mg Q4H PRN IVP for pain scale 6-10 08/16/17 19:00 08/26/17 18:59 08/19/17 18:18 Ondansetron HCl (Zofran) 4 mg Q6H PRN IVP Nausea & Vomiting 08/11/17 11:00 09/10/17 10:59 08/19/17 18:17 Risperidone (RisperDAL) 4 mg BEDTIME ORAL 07/23/17 21:00 08/22/17 20:59 08/19/17 20:28 Rick Arvizu MD Aug 19, 2017 22:39
[2017-08-20] VITALS: BP 102/71
--- NOTE | 2017-08-20 00:48 | General Progress Note ---
Assessment/Plan Assessment/Plan #. Anemia, likely due to chronic disease. --> No occult blood. H/H stable at this time. --> Monitor and trend cbc daily. --> Anemia workup reviewed. --> Iron 24, TIBC 173, Ferritin 513, B12 424, Folate 9.5, TSH 4.2 --> Does not need blood transfusion unless symptomatic or hgb <7 #. Perforation of viscus and pneumoperitoneum, currently improving. --> Continue to closely monitor. Peripheral smear reviewed as well. --> exam with peritonitis generalized but with focus in LLQ. #. Rhabdomyolysis, currently improved with administration of IV fluids. #. Hypoalbuminemia, likely secondary to decreased p.o. intake, monitor malnutrition. --> Due to elevated CPK of 1543, resolved at this time. #. Pneumoperitoneum. #. Pleuritic chest pain. On pain management. #. Chronic constipation. #. Schizophrenia, paranoid type. --> On risperidone. #. Psychosis. #. Smoker. #. Amphetamine use. #. Perforated left colon with prolonged inflammatory reaction, gross spillage, bowel ischemia. #. Wound Care. #. Leukocytosis. --> Wbc count downtrended from yesterday and resolved at this time. #. Discharge planning. Subjective Date patient seen: Aug 19, 2017 Constitutional: Denies: no symptoms, chills, diaphoresis, fever, malaise, weakness, other HEENT: Denies: no symptoms, eye pain, blurred vision, tearing, double vision, ear pain, ear discharge, nose pain, nose congestion, throat pain, throat swelling, mouth pain, mouth swelling, other Cardiovascular: Denies: no symptoms, chest pain, edema, irregular heart rate, lightheadedness, palpitations, syncope, other Respiratory: Denies: no symptoms, cough, orthopnea, shortness of breath, SOB with excertion, SOB at rest, sputum, stridor, wheezing, other Gastrointestinal/Abdominal: Denies: no symptoms, abdomen distended, abdominal pain, black stools, tarry stools, blood in stool, constipated, diarrhea, difficulty swallowing, nausea, poor appetite, poor fluid intake, rectal bleeding , vomiting, other Genitourinary: Denies: no symptoms, burning, discharge, frequency, flank pain, hematuria, incontinence, pain, urgency, other Neurologic/Psychiatric: Denies: no symptoms, anxiety, depressed, emotional problems, headache, numbness, paresthesia, pre-existing deficit, seizure, tingling, tremors, weakness, other Hematologic/Lymphatic: Reports: anemia Allergies: Coded Allergies: No Known Allergies (Unverified , 01/20/17) Subjective No hematochezia. No fever. Objective Last 24 Hour Vital Signs Date Time Temp Pulse Resp B/P (MAP) Pulse Ox O2 Delivery O2 Flow Rate FiO2 08/20/17 00:00 97.5 99 20 102/71 97 Room Air 97.5 08/19/17 20:00 96.4 70 18 111/66 100 Room Air 96.4 08/19/17 16:00 Room Air 08/19/17 16:00 97.2 70 20 116/66 98 97.2 08/19/17 12:00 98.1 71 20 110/65 97 98.1 08/19/17 12:00 Room Air Intake and Output 08/19/17 08/20/17 19:00 07:00 Intake Total 1000 ml Balance 1000 ml Intake Oral 1000 ml # Voids 6 # Bowel Movements 1 Height (Feet): 5 Height (Inches): 9.00 Weight (Pounds): 105 EENT: normal ENT inspection Cardiovascular: normal rate Respiratory/Chest: lungs clear Abdomen: non tender, soft KENDALL TAI Aug 20, 2017 00:48
[2017-08-20 04:00] VITALS: BP 103/57
[2017-08-20 07:47] LABS: EOSINOPHILS % (AUTO) 3.7 % (0.0-3.0); HEMOGLOBIN 9.9 G/DL (14.2-18.0); LYMPHOCYTES % (AUTO) 17.2 % (20.0-45.0); MEAN CORPUSCULAR VOLUME 92 FL (80-99); MONOCYTES % (AUTO) 5.4 % (1.0-10.0); NEUTROPHILS % (AUTO) 72.7 % (45.0-75.0); PLATELET COUNT 295 K/UL (150-450); RED BLOOD COUNT 3.14 M/UL (4.70-6.10); WHITE BLOOD COUNT 6.6 K/UL (4.8-10.8)
[2017-08-20 07:56] LABS: ALANINE AMINOTRANSFERASE 17 U/L (12-78); ALBUMIN 2.6 G/DL (3.4-5.0); ALBUMIN/GLOBULIN RATIO 0.6 (1.0-2.7); ALKALINE PHOSPHATASE 112 U/L (46-116); ANION GAP 5 mmol/L (5-15); ASPARTATE AMINO TRANSFERASE 14 U/L (15-37); BILIRUBIN,TOTAL 0.2 MG/DL (0.2-1.0); BLOOD UREA NITROGEN 19 mg/dL (7-18); CALCIUM 9.1 MG/DL (8.5-10.1); CARBON DIOXIDE 33 MMOL/L (21-32); CHLORIDE 100 MMOL/L (98-107); CREATININE 0.6 MG/DL (0.55-1.30); PHOSPHORUS 5.5 MG/DL (2.5-4.9); POTASSIUM 4.2 MMOL/L (3.5-5.1); SODIUM 138 MMOL/L (136-145)
[2017-08-20 07:59] VITALS: BP 96/60
[2017-08-20] MEDS: Docusate 100mg cap ORAL SCH ×2 (09:03→17:36)
[2017-08-20] MEDS: Heparin 5000 units/ml inj SUBQ SCH ×2 (09:06→20:30)
[2017-08-20] MEDS: Norco 5mg/325mg tab ORAL PRN ×3 (09:45→21:34)
--- NOTE | 2017-08-20 10:21 | GI Progress Note ---
Assessment/Plan Problems: (1) Psychiatric disorder ICD Codes: F99 - Mental disorder, not otherwise specified SNOMED: 93485124, 615403158 (2) Amphetamine abuse ICD Codes: F15.10 - Other stimulant abuse, uncomplicated SNOMED: 81575086 (3) Opiate dependence ICD Codes: F11.20 - Opioid dependence, uncomplicated SNOMED: 19294114 Qualifiers: Qualified Codes: F11.20 - Opioid dependence, uncomplicated (4) Perforated abdominal viscus SNOMED: 412820593 Status: stable Status Narrative Discussed with Dr. Castro. Assessment/Plan s/p Exploratory laparotomy, partial bowel resection fu surgical recs IVFs diet adv per surgery colostomy care prn transfusions serial imaging prn pain mgmt fu labs Subjective Subjective abdominal pain Objective Last 24 Hour Vital Signs Date Time Temp Pulse Resp B/P (MAP) Pulse Ox O2 Delivery O2 Flow Rate FiO2 08/20/17 09:45 97.7 08/20/17 07:59 97.7 85 18 96/60 98 Room Air 97.7 08/20/17 04:00 98.1 88 17 103/57 96 Room Air 98.1 08/20/17 00:00 97.5 99 20 102/71 97 Room Air 97.5 08/19/17 20:00 96.4 70 18 111/66 100 Room Air 96.4 08/19/17 16:00 Room Air 08/19/17 16:00 97.2 70 20 116/66 98 97.2 08/19/17 12:00 98.1 71 20 110/65 97 98.1 08/19/17 12:00 Room Air Intake and Output 08/19/17 08/20/17 19:00 07:00 Intake Total 1000 ml Balance 1000 ml Intake Oral 1000 ml # Voids 6 3 # Bowel Movements 1 2 Laboratory Tests Test 08/20/17 06:20 White Blood Count 6.6 K/UL (4.8-10.8) Red Blood Count 3.14 M/UL (4.70-6.10) L Hemoglobin 9.9 G/DL (14.2-18.0) L Hematocrit 29.0 % (42.0-52.0) L Mean Corpuscular Volume 92 FL (80-99) Mean Corpuscular Hemoglobin 31.6 PG (27.0-31.0) H Mean Corpuscular Hemoglobin Concent 34.2 G/DL (32.0-36.0) Red Cell Distribution Width 17.0 % (11.6-14.8) H Platelet Count 295 K/UL (150-450) Mean Platelet Volume 4.7 FL (6.5-10.1) L Neutrophils (%) (Auto) 72.7 % (45.0-75.0) Lymphocytes (%) (Auto) 17.2 % (20.0-45.0) L Monocytes (%) (Auto) 5.4 % (1.0-10.0) Eosinophils (%) (Auto) 3.7 % (0.0-3.0) H Basophils (%) (Auto) 1.0 % (0.0-2.0) Erythrocyte Sedimentation Rate 83 MM/HR (0-15) H Sodium Level 138 MMOL/L (136-145) Potassium Level 4.2 MMOL/L (3.5-5.1) Chloride Level 100 MMOL/L (98-107) Carbon Dioxide Level 33 MMOL/L (21-32) H Anion Gap 5 mmol/L (5-15) Blood Urea Nitrogen 19 mg/dL (7-18) H Creatinine 0.6 MG/DL (0.55-1.30) Estimat Glomerular Filtration Rate > 60 mL/min (>60) Glucose Level 112 MG/DL (74-106) H Calcium Level 9.1 MG/DL (8.5-10.1) Phosphorus Level 5.5 MG/DL (2.5-4.9) H Magnesium Level 1.7 MG/DL (1.8-2.4) L Total Bilirubin 0.2 MG/DL (0.2-1.0) Aspartate Amino Transf (AST/SGOT) 14 U/L (15-37) L Alanine Aminotransferase (ALT/SGPT) 17 U/L (12-78) Alkaline Phosphatase 112 U/L (46-116) C-Reactive Protein, Quantitative 2.3 mg/dL (0.00-0.90) H Total Protein 6.9 G/DL (6.4-8.2) Albumin 2.6 G/DL (3.4-5.0) L Globulin 4.3 g/dL Albumin/Globulin Ratio 0.6 (1.0-2.7) L Height (Feet): 5 Height (Inches): 9.00 Weight (Pounds): 107 General Appearance: WD/WN, no apparent distress, alert Cardiovascular: normal rate Respiratory/Chest: normal breath sounds, no respiratory distress Abdominal Exam: normal bowel sounds, non tender, soft Extremities: normal range of motion, non-tender Samia Albarran N.P. Aug 20, 2017 10:21
--- NOTE | 2017-08-20 10:26 | Nephrology Progress Note ---
Assessment/Plan Problem List: (1) ARF (acute renal failure) (2) UTI (urinary tract infection) (3) Psychiatric disorder (4) Acute abdomen Assessment Status: Na now up to 138 WBCs wnl had multi abdominal drains acute renal failure- extended left colectomy due to perf transverse colostomy creation Plan Plan: low Na ... improving...work up intitiated .....likely SIADH PO Fluid Restriction up to 1200 cc/24h DC lasix IV per charles, 07/20/17 Mag and K supplement as needed Post op ( OP 07/08/17) Dickens- 2D echo normal Ej Fx Albumin bollous monitor renal parameters K and Phos and Mag supplement as needed Subjective ROS Limited/Unobtainable: No Constitutional: Reports: malaise Objective Objective Last 24 Hour Vital Signs Date Time Temp Pulse Resp B/P (MAP) Pulse Ox O2 Delivery O2 Flow Rate FiO2 08/20/17 09:45 97.7 08/20/17 07:59 97.7 85 18 96/60 98 Room Air 97.7 08/20/17 04:00 98.1 88 17 103/57 96 Room Air 98.1 08/20/17 00:00 97.5 99 20 102/71 97 Room Air 97.5 08/19/17 20:00 96.4 70 18 111/66 100 Room Air 96.4 08/19/17 16:00 Room Air 08/19/17 16:00 97.2 70 20 116/66 98 97.2 08/19/17 12:00 98.1 71 20 110/65 97 98.1 08/19/17 12:00 Room Air Intake and Output 08/19/17 08/20/17 19:00 07:00 Intake Total 1000 ml Balance 1000 ml Intake Oral 1000 ml # Voids 6 3 # Bowel Movements 1 2 Laboratory Tests 08/20/17 06:20: White Blood Count 6.6, Red Blood Count 3.14L, Hemoglobin 9.9L, Hematocrit 29.0L , Mean Corpuscular Volume 92, Mean Corpuscular Hemoglobin 31.6H, Mean Corpuscular Hemoglobin Concent 34.2, Red Cell Distribution Width 17.0H, Platelet Count 295, Mean Platelet Volume 4.7L, Neutrophils (%) (Auto) 72.7, Lymphocytes (%) (Auto) 17.2L, Monocytes (%) (Auto) 5.4, Eosinophils (%) (Auto) 3.7H, Basophils (%) (Auto) 1.0, Erythrocyte Sedimentation Rate 83H, Sodium Level 138, Potassium Level 4.2, Chloride Level 100, Carbon Dioxide Level 33H, Anion Gap 5, Blood Urea Nitrogen 19H, Creatinine 0.6, Estimat Glomerular Filtration Rate > 60, Glucose Level 112H, Calcium Level 9.1, Phosphorus Level 5.5H, Magnesium Level 1.7L, Total Bilirubin 0.2, Aspartate Amino Transf (AST/ SGOT) 14L, Alanine Aminotransferase (ALT/SGPT) 17, Alkaline Phosphatase 112, C- Reactive Protein, Quantitative 2.3H, Total Protein 6.9, Albumin 2.6L, Globulin 4.3, Albumin/Globulin Ratio 0.6L Height (Feet): 5 Height (Inches): 9.00 Weight (Pounds): 107 General Appearance: no apparent distress Objective no other change NOEMY MARK Aug 20, 2017 10:26
--- NOTE | 2017-08-20 15:21 | Pulmonology Progress Note ---
Assessment/Plan Problems: (1) Perforated abdominal viscus (2) ARF (acute renal failure) (3) Psychosis (4) Acute constipation (5) Amphetamine abuse Assessment/Plan decrease dilaudid to 1 mg q4 symptomatic treatment f/u wbc and clinically pain management med/surg all reviewed dc planning Subjective ROS Limited/Unobtainable: No Constitutional: Reports: no symptoms HEENT: Repors: no symptoms Allergies: Coded Allergies: No Known Allergies (Unverified , 01/20/17) Objective Last 24 Hour Vital Signs Date Time Temp Pulse Resp B/P (MAP) Pulse Ox O2 Delivery O2 Flow Rate FiO2 08/20/17 15:16 97.7 08/20/17 12:36 97.7 08/20/17 12:06 97.7 08/20/17 10:44 97.7 08/20/17 09:45 97.7 08/20/17 07:59 97.7 85 18 96/60 98 Room Air 97.7 08/20/17 04:00 98.1 88 17 103/57 96 Room Air 98.1 08/20/17 00:00 97.5 99 20 102/71 97 Room Air 97.5 08/19/17 20:00 96.4 70 18 111/66 100 Room Air 96.4 08/19/17 16:00 Room Air 08/19/17 16:00 97.2 70 20 116/66 98 97.2 Intake and Output 08/19/17 08/20/17 19:00 07:00 Intake Total 1000 ml Balance 1000 ml Intake Oral 1000 ml # Voids 6 3 # Bowel Movements 1 2 Objective General Appearance: WD/WN Lines, tubes and drains: peripheral HEENT: normocephalic, atraumatic Neck: non-tender, normal alignment Respiratory/Chest: chest wall non-tender, lungs clear Breasts: no masses Cardiovascular/Chest: normal peripheral pulses, normal rate Abdomen: normal bowel sounds, clean dressing Genitourinary/Rectal: normal genital exam, heme negative stool Extremities: normal range of motion, non-tender Skin Exam: normal pigmentation Laboratory Tests 08/20/17 06:20: White Blood Count 6.6, Red Blood Count 3.14L, Hemoglobin 9.9L, Hematocrit 29.0L , Mean Corpuscular Volume 92, Mean Corpuscular Hemoglobin 31.6H, Mean Corpuscular Hemoglobin Concent 34.2, Red Cell Distribution Width 17.0H, Platelet Count 295, Mean Platelet Volume 4.7L, Neutrophils (%) (Auto) 72.7, Lymphocytes (%) (Auto) 17.2L, Monocytes (%) (Auto) 5.4, Eosinophils (%) (Auto) 3.7H, Basophils (%) (Auto) 1.0, Erythrocyte Sedimentation Rate 83H, Sodium Level 138, Potassium Level 4.2, Chloride Level 100, Carbon Dioxide Level 33H, Anion Gap 5, Blood Urea Nitrogen 19H, Creatinine 0.6, Estimat Glomerular Filtration Rate > 60, Glucose Level 112H, Calcium Level 9.1, Phosphorus Level 5.5H, Magnesium Level 1.7L, Total Bilirubin 0.2, Aspartate Amino Transf (AST/ SGOT) 14L, Alanine Aminotransferase (ALT/SGPT) 17, Alkaline Phosphatase 112, C- Reactive Protein, Quantitative 2.3H, Total Protein 6.9, Albumin 2.6L, Globulin 4.3, Albumin/Globulin Ratio 0.6L Current Medications Medications (Trade) Dose Ordered Sig/Kayy Route PRN Reason Start Time Stop Time Status Last Admin Dose Admin Acetaminophen/ Hydrocodone Bitart ([place] 5/325) 1 tab Q4H PRN ORAL pain 1-5 08/16/17 19:00 08/26/17 18:59 08/20/17 15:16 Dextrose (Dextrose 50%) 25 ml STAT PRN IV HYPOGLYCEMIA 08/08/17 09:45 09/07/17 09:44 Diphenhydramine HCl (Benadryl) 25 mg Q6H PRN IVP Itching 07/25/17 17:00 08/24/17 16:59 08/18/17 11:57 Docusate Sodium (Colace) 100 mg TWICE A DAY ORAL 08/09/17 18:00 09/08/17 17:59 08/20/17 09:03 Famotidine (Pepcid) 40 mg QHS ORAL 08/08/17 21:00 09/07/17 20:59 08/19/17 20:27 Heparin Sodium (Porcine) (Heparin 5000 units/ml) 5,000 units EVERY 12 HOURS SUBQ 08/01/17 21:00 08/22/17 21:00 08/20/17 09:06 Hydromorphone HCl (Dilaudid) 1.5 mg Q4H PRN IVP for pain scale 6-10 08/16/17 19:00 08/26/17 18:59 08/20/17 12:06 Ondansetron HCl (Zofran) 4 mg Q6H PRN IVP Nausea & Vomiting 08/11/17 11:00 09/10/17 10:59 08/20/17 04:34 Pantoprazole (Protonix) 40 mg DAILY ORAL 08/20/17 11:00 09/19/17 10:59 08/20/17 11:40 Risperidone (RisperDAL) 4 mg BEDTIME ORAL 07/23/17 21:00 08/22/17 20:59 08/19/17 20:28 Brenda Martel MD Aug 20, 2017 15:21
[2017-08-20 15:58] VITALS: BP 107/75
[2017-08-20 20:00] VITALS: BP 113/83
--- NOTE | 2017-08-20 20:03 | Infectious Diseases Prog Note ---
Assessment/Plan Assessment/Plan ASSESSMENT: The patient is a 46-year-old male with; Bowel perf w/ development of 2 Abscess (subphrenic and pelvic) Cx: E coli( ESBL) and ENTEROCOCCUS AVIUM (turcios S) and Bact Fragilis - s/p I+D x2- , SP resolution of abscess -CT abd/p w/ 08/02: Mostly resolved left upper quadrant and right upper quadrant fluid collections, post surgical evacuation. Minimal residual fluid as described. Appearance of the residual fluid is nonspecific as regards whether or not infected. Other postsurgical changes, as described, including the minimal residual pneumoperitoneum, surgical drain removal. 2 new fluid collections within the liver, could represent small hepatic abscesses versus noninfected acquired fluid collections, possibly related to surgical trauma. Dilated proximal small bowel, gradually narrowing to normal caliber more distally. No evidence of obstruction, as ingested contrast is seen to traverse the entirety of the GI tract. Small splenic hilar, gastric varices. This, in combination with mesenteric congestion, could indicate portal hypertension. However, no morphologic changes of the liver to suggest cirrhosis are evident. Moderate right pleural effusion, slightly decreased in size from the previous study. Trace left pleural effusion, significantly decreased in size from the previous study. Gas within the bladder. Probably related to recent instrumentation. If there is no history of recent Dickens catheterization, however , the possibility of emphysematous cystitis should be considered -s/p exploratory laparotomy, abdominal washout, evacuation of abscess, drain placement and abdominal closure 07/20; cx not received in the lab -s/p CT guided drainage APOLLO fluid collection 07/19: Aspiration and drainage of left upper quadrant collection, yielding 150 mL of carin pus. Note that the collection could only be partially evacuated, however, despite confirmation of apparent adequate position of the drain.This may indicate high viscosity of the contents; cx E. fecalis (turcios S), PREVOTELLA LOESCHEII ([place]um[place]in, Clinda R; Metronidazole S) s/p ex lap with left colectomy and transverse colostomy for perforated left colon, evacuation of intrabd abscess, abd washout w/ drain placement 07/09 -CT abd/p w/ 07/18: Postsurgical changes, as described, status post transverse colectomy, Jazz procedure, and placement of multiple surgical drains. Left upper quadrant intraperitoneal fluid collection, despite the presence of a surgical drain in the center of the collection. The presence of gas bubbles within rather than floating nondependently in the collection indicate that this fluid may be viscous. 2 other significant intraperitoneal collections,which do not appear to communicate, possibly loculated. Given presence of somewhat thick enhancing rim surrounding all of these, infected collections are certainly possible ( left paracolic gutter 5.8 cmx 4.3 cm x 8.3cm and R paracolic gutter, medial and inferior to tip R hepatic lobe 8cm x 6.4cm x8cm). Other than the gas within the left upper quadrant collection, previously demonstrated pneumoperitoneum has largely resolved. Left upper quadrant thick walled small bowel loops. Possibly reactive due to adjacent inflammation, enteritis is also possible. No evidence of bowel obstruction. Gallbladder wall edema versus pericholecystic fluid. -OR findings: The omentum was significantly thickened and adhesed to the small bowel and into the left lower quadrant. There was significant inflammatory process throughout the abdomen including a thickening of almost the entire peritoneal lining. The proximal portion of the jejunum was significantly thickened and had a rind of inflammatory infectious tissue on it. left transverse and descending colon, there was significant amount of thickening and significant disease process with some areas of mild ischemia noted and in the descending colon around the descending and sigmoid junction, there was a gross perforation with grossspillage of bowel contents noted in the area. there was a fluid collection/pelvic abscess, which was evacuated. There was a fluid collection in the right upper quadrant around the liver, which was evacuated and a large left upper quadrant subphrenic abscess with significant tissue rind and thickening around the stomach, spleen, peritoneum, and diaphragm in that location. CT : Evidence of perforation of hollow viscus with extensive amount of free air in the upper abdomen and some free fluid is well. Fever, SP Leukocytosis SP -07/31 Cdiff neg -07/15 Bcx Neg ?PNA, SP Rx -CXR 07/31: Improved left basilar consolidation, since 07/15/2017. Some residual atelectasis and possibly minimal residual consolidation. Decreased but persistent pleural fluid on the left. Resolved right mid and lower lung consolidation. Some residual perihilar atelectasis. New or increased small right pleural effusion. Left upper quadrant surgical drain Elevated ALP , improved -Abd US: Negative for gallstones. There is borderline gallbladder wall thickening, however. Most likely, this is reactive secondary to surrounding inflammation related to recent bowel perforation and surgery for such. However, the possibility of acalculous acute cholecystitis should be considered, and consideration for nuclear medicine hepatobiliary scanning if there is high clinical suspicion history of diarrhea, SP RAMSEY: Improved HTN COPD/asthma. Smoker. History of chronic constipation. Osteoarthritis. ? CAD/[place], hx PLAN: - Monitor pt off of AB Rx 08/10 SP IV Meropenem abx d#31 , Fluconazole # 21, Linezolid #18 , monitor pt off of AB Rx -weekly CBC/CMP --08/02 SP IV ampicillin #17 --07/21 Zosyn #4 --07/18 SP Ertapenem, PO Amoxicillin #3 --07/16 SP Cefepime #2 --07/12 SP Zosyn d# 6 --SP Rocephin d# 5 -surgery following midline wound closure needed -wound care -Trend WBC Subjective Constitutional: Denies: no symptoms, fever, chills, fatigue, anorexia, drenching sweats, other Allergies: Coded Allergies: No Known Allergies (Unverified , 01/20/17) Subjective no new complain Objective Vital Signs Last 24 Hour Vital Signs Date Time Temp Pulse Resp B/P (MAP) Pulse Ox O2 Delivery O2 Flow Rate FiO2 08/20/17 19:18 97.3 08/20/17 18:47 97.3 08/20/17 16:15 97.3 08/20/17 15:58 97.3 100 18 107/75 96 Room Air 97.3 08/20/17 15:16 97.7 08/20/17 12:36 97.7 08/20/17 12:06 97.7 08/20/17 09:45 97.7 08/20/17 07:59 97.7 85 18 96/60 98 Room Air 97.7 08/20/17 04:00 98.1 88 17 103/57 96 Room Air 98.1 08/20/17 00:00 97.5 99 20 102/71 97 Room Air 97.5 Height (Feet): 5 Height (Inches): 9.00 Weight (Pounds): 107 HEENT: anicteric Respiratory/Chest: lungs clear Cardiovascular: normal peripheral pulses Abdomen: soft, non tender Laboratory Tests Test 08/20/17 06:20 White Blood Count 6.6 K/UL (4.8-10.8) Red Blood Count 3.14 M/UL (4.70-6.10) L Hemoglobin 9.9 G/DL (14.2-18.0) L Hematocrit 29.0 % (42.0-52.0) L Mean Corpuscular Volume 92 FL (80-99) Mean Corpuscular Hemoglobin 31.6 PG (27.0-31.0) H Mean Corpuscular Hemoglobin Concent 34.2 G/DL (32.0-36.0) Red Cell Distribution Width 17.0 % (11.6-14.8) H Platelet Count 295 K/UL (150-450) Mean Platelet Volume 4.7 FL (6.5-10.1) L Neutrophils (%) (Auto) 72.7 % (45.0-75.0) Lymphocytes (%) (Auto) 17.2 % (20.0-45.0) L Monocytes (%) (Auto) 5.4 % (1.0-10.0) Eosinophils (%) (Auto) 3.7 % (0.0-3.0) H Basophils (%) (Auto) 1.0 % (0.0-2.0) Erythrocyte Sedimentation Rate 83 MM/HR (0-15) H Sodium Level 138 MMOL/L (136-145) Potassium Level 4.2 MMOL/L (3.5-5.1) Chloride Level 100 MMOL/L (98-107) Carbon Dioxide Level 33 MMOL/L (21-32) H Anion Gap 5 mmol/L (5-15) Blood Urea Nitrogen 19 mg/dL (7-18) H Creatinine 0.6 MG/DL (0.55-1.30) Estimat Glomerular Filtration Rate > 60 mL/min (>60) Glucose Level 112 MG/DL (74-106) H Calcium Level 9.1 MG/DL (8.5-10.1) Phosphorus Level 5.5 MG/DL (2.5-4.9) H Magnesium Level 1.7 MG/DL (1.8-2.4) L Total Bilirubin 0.2 MG/DL (0.2-1.0) Aspartate Amino Transf (AST/SGOT) 14 U/L (15-37) L Alanine Aminotransferase (ALT/SGPT) 17 U/L (12-78) Alkaline Phosphatase 112 U/L (46-116) C-Reactive Protein, Quantitative 2.3 mg/dL (0.00-0.90) H Total Protein 6.9 G/DL (6.4-8.2) Albumin 2.6 G/DL (3.4-5.0) L Globulin 4.3 g/dL Albumin/Globulin Ratio 0.6 (1.0-2.7) L Current Medications Medications (Trade) Dose Ordered Sig/Kayy Route PRN Reason Start Time Stop Time Status Last Admin Dose Admin Acetaminophen/ Hydrocodone Bitart ([place] 5/325) 1 tab Q4H PRN ORAL pain 1-5 08/16/17 19:00 08/26/17 18:59 08/20/17 15:16 Dextrose (Dextrose 50%) 25 ml STAT PRN IV HYPOGLYCEMIA 08/08/17 09:45 09/07/17 09:44 Diphenhydramine HCl (Benadryl) 25 mg Q6H PRN IVP Itching 07/25/17 17:00 08/24/17 16:59 08/18/17 11:57 Docusate Sodium (Colace) 100 mg TWICE A DAY ORAL 08/09/17 18:00 09/08/17 17:59 08/20/17 17:36 Famotidine (Pepcid) 40 mg QHS ORAL 08/08/17 21:00 09/07/17 20:59 08/19/17 20:27 Heparin Sodium (Porcine) (Heparin 5000 units/ml) 5,000 units EVERY 12 HOURS SUBQ 08/01/17 21:00 08/22/17 21:00 08/20/17 09:06 Hydromorphone HCl (Dilaudid) 1 mg Q4H PRN IVP for pain scale 6-10 08/20/17 19:00 08/26/17 18:59 08/20/17 18:47 Ondansetron HCl (Zofran) 4 mg Q6H PRN IVP Nausea & Vomiting 08/11/17 11:00 09/10/17 10:59 08/20/17 17:59 Pantoprazole (Protonix) 40 mg DAILY ORAL 08/20/17 11:00 09/19/17 10:59 08/20/17 11:40 Risperidone (RisperDAL) 4 mg BEDTIME ORAL 07/23/17 21:00 08/22/17 20:59 08/19/17 20:28 Rick Arvizu MD Aug 20, 2017 20:03
[2017-08-20] MEDS: DiphenhydrAMINE 50mg/ml Inj IVP PRN (20:31)
--- NOTE | 2017-08-20 22:30 | General Progress Note ---
Assessment/Plan Assessment/Plan #. Anemia, likely due to chronic disease. --> No occult blood. H/H stable at this time and improved from yesterday. --> Monitor and trend cbc daily. --> Anemia workup reviewed. --> Iron 24, TIBC 173, Ferritin 513, B12 424, Folate 9.5, TSH 4.2 --> Does not need blood transfusion unless symptomatic or hgb <7 #. Perforation of viscus and pneumoperitoneum, currently improving. --> Continue to closely monitor. Peripheral smear reviewed as well. --> exam with peritonitis generalized but with focus in LLQ. #. Rhabdomyolysis, currently improved with administration of IV fluids. #. Hypoalbuminemia, likely secondary to decreased p.o. intake, monitor malnutrition. --> Due to elevated CPK of 1543, resolved at this time. #. Pneumoperitoneum. #. Pleuritic chest pain. On pain management. #. Chronic constipation. #. Schizophrenia, paranoid type. --> On risperidone. #. Psychosis. #. Smoker. #. Amphetamine use. #. Perforated left colon with prolonged inflammatory reaction, gross spillage, bowel ischemia. #. Wound Care. #. Leukocytosis. --> Wbc count downtrended from yesterday and resolved at this time. #. Discharge planning. Subjective Date patient seen: Aug 20, 2017 Constitutional: Denies: no symptoms, chills, diaphoresis, fever, malaise, weakness, other HEENT: Denies: no symptoms, eye pain, blurred vision, tearing, double vision, ear pain, ear discharge, nose pain, nose congestion, throat pain, throat swelling, mouth pain, mouth swelling, other Cardiovascular: Denies: no symptoms, chest pain, edema, irregular heart rate, lightheadedness, palpitations, syncope, other Respiratory: Denies: no symptoms, cough, orthopnea, shortness of breath, SOB with excertion, SOB at rest, sputum, stridor, wheezing, other Gastrointestinal/Abdominal: Denies: no symptoms, abdomen distended, abdominal pain, black stools, tarry stools, blood in stool, constipated, diarrhea, difficulty swallowing, nausea, poor appetite, poor fluid intake, rectal bleeding , vomiting, other Genitourinary: Denies: no symptoms, burning, discharge, frequency, flank pain, hematuria, incontinence, pain, urgency, other Neurologic/Psychiatric: Denies: no symptoms, anxiety, depressed, emotional problems, headache, numbness, paresthesia, pre-existing deficit, seizure, tingling, tremors, weakness, other Endocrine: Denies: no symptoms, excessive sweating, flushing, intolerance to cold, intolerance to heat, increased hunger, increased thirst, increased urine, unexplained weight gain, unexplained weight loss, other Hematologic/Lymphatic: Reports: anemia Allergies: Coded Allergies: No Known Allergies (Unverified , 01/20/17) Subjective H/H stable. On pain management. Objective Last 24 Hour Vital Signs Date Time Temp Pulse Resp B/P (MAP) Pulse Ox O2 Delivery O2 Flow Rate FiO2 08/20/17 21:34 98.1 08/20/17 20:00 98.1 87 18 113/83 97 Room Air 98.1 08/20/17 19:18 97.3 08/20/17 18:47 97.3 08/20/17 16:15 97.3 08/20/17 15:58 97.3 100 18 107/75 96 Room Air 97.3 08/20/17 15:16 97.7 08/20/17 12:36 97.7 08/20/17 12:06 97.7 08/20/17 09:45 97.7 08/20/17 07:59 97.7 85 18 96/60 98 Room Air 97.7 08/20/17 04:00 98.1 88 17 103/57 96 Room Air 98.1 08/20/17 00:00 97.5 99 20 102/71 97 Room Air 97.5 Intake and Output 08/19/17 08/20/17 19:00 07:00 Intake Total 1000 ml Balance 1000 ml Intake Oral 1000 ml # Voids 6 3 # Bowel Movements 1 2 Laboratory Tests 08/20/17 06:20: White Blood Count 6.6, Red Blood Count 3.14L, Hemoglobin 9.9L, Hematocrit 29.0L , Mean Corpuscular Volume 92, Mean Corpuscular Hemoglobin 31.6H, Mean Corpuscular Hemoglobin Concent 34.2, Red Cell Distribution Width 17.0H, Platelet Count 295, Mean Platelet Volume 4.7L, Neutrophils (%) (Auto) 72.7, Lymphocytes (%) (Auto) 17.2L, Monocytes (%) (Auto) 5.4, Eosinophils (%) (Auto) 3.7H, Basophils (%) (Auto) 1.0, Erythrocyte Sedimentation Rate 83H, Sodium Level 138, Potassium Level 4.2, Chloride Level 100, Carbon Dioxide Level 33H, Anion Gap 5, Blood Urea Nitrogen 19H, Creatinine 0.6, Estimat Glomerular Filtration Rate > 60, Glucose Level 112H, Calcium Level 9.1, Phosphorus Level 5.5H, Magnesium Level 1.7L, Total Bilirubin 0.2, Aspartate Amino Transf (AST/ SGOT) 14L, Alanine Aminotransferase (ALT/SGPT) 17, Alkaline Phosphatase 112, C- Reactive Protein, Quantitative 2.3H, Total Protein 6.9, Albumin 2.6L, Globulin 4.3, Albumin/Globulin Ratio 0.6L Height (Feet): 5 Height (Inches): 9.00 Weight (Pounds): 107 General Appearance: mild distress Cardiovascular: normal rate, regular rhythm Respiratory/Chest: decreased breath sounds KENDALL TAI Aug 20, 2017 22:30
--- NOTE | 2017-08-21 00:01 | General Progress Note ---
Assessment/Plan Assessment/Plan Schizophrenia CPT Encephalopathy PLAN: - increase the risperidone to 4 mg at bedtime. Subjective Date patient seen: Aug 20, 2017 Neurologic/Psychiatric: Reports: anxiety, depressed, emotional problems Allergies: Coded Allergies: No Known Allergies (Unverified , 01/20/17) Subjective the pt is calmer more organized. meds seeking Objective Last 24 Hour Vital Signs Date Time Temp Pulse Resp B/P (MAP) Pulse Ox O2 Delivery O2 Flow Rate FiO2 08/20/17 23:38 98.1 08/20/17 22:37 98.1 08/20/17 21:34 98.1 08/20/17 20:00 98.1 87 18 113/83 97 Room Air 98.1 08/20/17 19:18 97.3 08/20/17 18:47 97.3 08/20/17 15:58 97.3 100 18 107/75 96 Room Air 97.3 08/20/17 15:16 97.7 08/20/17 12:36 97.7 08/20/17 12:06 97.7 08/20/17 09:45 97.7 08/20/17 07:59 97.7 85 18 96/60 98 Room Air 97.7 08/20/17 04:00 98.1 88 17 103/57 96 Room Air 98.1 Intake and Output 08/20/17 08/21/17 18:59 06:59 Intake Total 600 ml Balance 600 ml Intake Oral 600 ml # Voids 2 Laboratory Tests 08/20/17 06:20: White Blood Count 6.6, Red Blood Count 3.14L, Hemoglobin 9.9L, Hematocrit 29.0L , Mean Corpuscular Volume 92, Mean Corpuscular Hemoglobin 31.6H, Mean Corpuscular Hemoglobin Concent 34.2, Red Cell Distribution Width 17.0H, Platelet Count 295, Mean Platelet Volume 4.7L, Neutrophils (%) (Auto) 72.7, Lymphocytes (%) (Auto) 17.2L, Monocytes (%) (Auto) 5.4, Eosinophils (%) (Auto) 3.7H, Basophils (%) (Auto) 1.0, Erythrocyte Sedimentation Rate 83H, Sodium Level 138, Potassium Level 4.2, Chloride Level 100, Carbon Dioxide Level 33H, Anion Gap 5, Blood Urea Nitrogen 19H, Creatinine 0.6, Estimat Glomerular Filtration Rate > 60, Glucose Level 112H, Calcium Level 9.1, Phosphorus Level 5.5H, Magnesium Level 1.7L, Total Bilirubin 0.2, Aspartate Amino Transf (AST/ SGOT) 14L, Alanine Aminotransferase (ALT/SGPT) 17, Alkaline Phosphatase 112, C- Reactive Protein, Quantitative 2.3H, Total Protein 6.9, Albumin 2.6L, Globulin 4.3, Albumin/Globulin Ratio 0.6L Height (Feet): 5 Height (Inches): 9.00 Weight (Pounds): 107 Idalia Montanez M.D. Aug 21, 2017 00:01
[2017-08-21 04:09] VITALS: BP 108/61
[2017-08-21 08:00] VITALS: BP 110/78
[2017-08-21] MEDS: DiphenhydrAMINE 50mg/ml Inj IVP PRN (08:36)
[2017-08-21] MEDS: Docusate 100mg cap ORAL SCH (08:36)
[2017-08-21] MEDS: Heparin 5000 units/ml inj SUBQ SCH (08:55)
--- NOTE | 2017-08-21 11:53 | Infectious Diseases Prog Note ---
Assessment/Plan Assessment/Plan ASSESSMENT: The patient is a 46-year-old male with; Bowel perf w/ development of 2 Abscess (subphrenic and pelvic) Cx: E coli( ESBL) and ENTEROCOCCUS AVIUM (turcios S) and Bact Fragilis - s/p I+D x2- , SP resolution of abscess -CT abd/p w/ 08/02: Mostly resolved left upper quadrant and right upper quadrant fluid collections, post surgical evacuation. Minimal residual fluid as described. Appearance of the residual fluid is nonspecific as regards whether or not infected. Other postsurgical changes, as described, including the minimal residual pneumoperitoneum, surgical drain removal. 2 new fluid collections within the liver, could represent small hepatic abscesses versus noninfected acquired fluid collections, possibly related to surgical trauma. Dilated proximal small bowel, gradually narrowing to normal caliber more distally. No evidence of obstruction, as ingested contrast is seen to traverse the entirety of the GI tract. Small splenic hilar, gastric varices. This, in combination with mesenteric congestion, could indicate portal hypertension. However, no morphologic changes of the liver to suggest cirrhosis are evident. Moderate right pleural effusion, slightly decreased in size from the previous study. Trace left pleural effusion, significantly decreased in size from the previous study. Gas within the bladder. Probably related to recent instrumentation. If there is no history of recent Dickens catheterization, however , the possibility of emphysematous cystitis should be considered -s/p exploratory laparotomy, abdominal washout, evacuation of abscess, drain placement and abdominal closure 07/20; cx not received in the lab -s/p CT guided drainage APOLLO fluid collection 07/19: Aspiration and drainage of left upper quadrant collection, yielding 150 mL of carin pus. Note that the collection could only be partially evacuated, however, despite confirmation of apparent adequate position of the drain.This may indicate high viscosity of the contents; cx E. fecalis (turcios S), PREVOTELLA LOESCHEII (Aumgentin, Clinda R; Metronidazole S) s/p ex lap with left colectomy and transverse colostomy for perforated left colon, evacuation of intrabd abscess, abd washout w/ drain placement 07/09 -CT abd/p w/ 07/18: Postsurgical changes, as described, status post transverse colectomy, Jazz procedure, and placement of multiple surgical drains. Left upper quadrant intraperitoneal fluid collection, despite the presence of a surgical drain in the center of the collection. The presence of gas bubbles within rather than floating nondependently in the collection indicate that this fluid may be viscous. 2 other significant intraperitoneal collections,which do not appear to communicate, possibly loculated. Given presence of somewhat thick enhancing rim surrounding all of these, infected collections are certainly possible ( left paracolic gutter 5.8 cmx 4.3 cm x 8.3cm and R paracolic gutter, medial and inferior to tip R hepatic lobe 8cm x 6.4cm x8cm). Other than the gas within the left upper quadrant collection, previously demonstrated pneumoperitoneum has largely resolved. Left upper quadrant thick walled small bowel loops. Possibly reactive due to adjacent inflammation, enteritis is also possible. No evidence of bowel obstruction. Gallbladder wall edema versus pericholecystic fluid. -OR findings: The omentum was significantly thickened and adhesed to the small bowel and into the left lower quadrant. There was significant inflammatory process throughout the abdomen including a thickening of almost the entire peritoneal lining. The proximal portion of the jejunum was significantly thickened and had a rind of inflammatory infectious tissue on it. left transverse and descending colon, there was significant amount of thickening and significant disease process with some areas of mild ischemia noted and in the descending colon around the descending and sigmoid junction, there was a gross perforation with grossspillage of bowel contents noted in the area. there was a fluid collection/pelvic abscess, which was evacuated. There was a fluid collection in the right upper quadrant around the liver, which was evacuated and a large left upper quadrant subphrenic abscess with significant tissue rind and thickening around the stomach, spleen, peritoneum, and diaphragm in that location. CT : Evidence of perforation of hollow viscus with extensive amount of free air in the upper abdomen and some free fluid is well. Fever, SP Leukocytosis SP -07/31 Cdiff neg -07/15 Bcx Neg ?PNA, SP Rx -CXR 07/31: Improved left basilar consolidation, since 07/15/2017. Some residual atelectasis and possibly minimal residual consolidation. Decreased but persistent pleural fluid on the left. Resolved right mid and lower lung consolidation. Some residual perihilar atelectasis. New or increased small right pleural effusion. Left upper quadrant surgical drain Elevated ALP , improved -Abd US: Negative for gallstones. There is borderline gallbladder wall thickening, however. Most likely, this is reactive secondary to surrounding inflammation related to recent bowel perforation and surgery for such. However, the possibility of acalculous acute cholecystitis should be considered, and consideration for nuclear medicine hepatobiliary scanning if there is high clinical suspicion history of diarrhea, SP RAMSEY: Improved HTN COPD/asthma. Smoker. History of chronic constipation. Osteoarthritis. ? CAD/[place], hx PLAN: - Monitor pt off of AB Rx 08/10 SP IV Meropenem abx d#31 , Fluconazole # 21, Linezolid #18 , monitor pt off of AB Rx -weekly CBC/CMP --08/02 SP IV ampicillin #17 --07/21 Zosyn #4 --07/18 SP Ertapenem, PO Amoxicillin #3 --07/16 SP Cefepime #2 --07/12 SP Zosyn d# 6 --SP Rocephin d# 5 -surgery following midline wound closure needed -wound care -Trend WBC Subjective Allergies: Coded Allergies: No Known Allergies (Unverified , 01/20/17) Subjective no new complain Objective Vital Signs Last 24 Hour Vital Signs Date Time Temp Pulse Resp B/P (MAP) Pulse Ox O2 Delivery O2 Flow Rate FiO2 08/21/17 08:00 96.3 117 14 110/78 99 Room Air 96.3 08/21/17 04:59 97.9 08/21/17 04:20 97.9 08/21/17 04:09 97.9 78 18 108/61 98 Room Air 97.9 08/20/17 23:38 98.1 08/20/17 22:37 98.1 08/20/17 21:34 98.1 08/20/17 20:00 98.1 87 18 113/83 97 Room Air 98.1 08/20/17 18:47 97.3 08/20/17 15:58 97.3 100 18 107/75 96 Room Air 97.3 08/20/17 15:16 97.7 08/20/17 12:36 97.7 08/20/17 12:06 97.7 Height (Feet): 5 Height (Inches): 9.00 Weight (Pounds): 108 HEENT: mucous membranes moist Respiratory/Chest: normal breath sounds Cardiovascular: normal rate Abdomen: no organomegaly Current Medications Medications (Trade) Dose Ordered Sig/Kayy Route PRN Reason Start Time Stop Time Status Last Admin Dose Admin Acetaminophen/ Hydrocodone Bitart (Revloc 5/325) 1 tab Q4H PRN ORAL pain 1-5 08/16/17 19:00 08/26/17 18:59 08/20/17 21:34 Dextrose (Dextrose 50%) 25 ml STAT PRN IV HYPOGLYCEMIA 08/08/17 09:45 09/07/17 09:44 Diphenhydramine HCl (Benadryl) 25 mg Q6H PRN IVP Itching 07/25/17 17:00 08/24/17 16:59 08/21/17 08:36 Docusate Sodium (Colace) 100 mg TWICE A DAY ORAL 08/09/17 18:00 09/08/17 17:59 08/21/17 08:36 Famotidine (Pepcid) 40 mg QHS ORAL 08/08/17 21:00 09/07/17 20:59 08/20/17 20:31 Heparin Sodium (Porcine) (Heparin 5000 units/ml) 5,000 units EVERY 12 HOURS SUBQ 08/01/17 21:00 08/22/17 21:00 08/21/17 08:55 Hydromorphone HCl (Dilaudid) 1 mg Q4H PRN IVP for pain scale 6-10 08/20/17 19:00 08/26/17 18:59 08/21/17 08:36 Ondansetron HCl (Zofran) 4 mg Q6H PRN IVP Nausea & Vomiting 08/11/17 11:00 09/10/17 10:59 08/21/17 08:36 Pantoprazole (Protonix) 40 mg DAILY ORAL 08/20/17 11:00 09/19/17 10:59 08/21/17 08:36 Risperidone (RisperDAL) 4 mg BEDTIME ORAL 07/23/17 21:00 08/22/17 20:59 08/20/17 20:31 Rick Arvizu MD Aug 21, 2017 11:53
[2017-08-21 12:00] VITALS: BP 114/77
--- NOTE | 2017-08-21 12:03 | General Progress Note ---
Progress Note Progress Note Surgery: has been doing remarkably well. no issues. awaiting placement which may be today. tolerating diet. regaining strength. ambulatory. ostomy viable and functional midline wound much improved and almost healed. labs improved -Abx as per ID -okay to d/c from surgical standpoint -will need to establish care with PCP and surgeon involved with his health plan for wound care, midline wound revision vs grafting, and possibly ostomy takedown. -continue with midline wound care as currently instructed -refer to my prior notes for any details of care plan. Gilberto Michelle Aug 21, 2017 12:03
--- NOTE | 2017-08-21 13:48 | Nephrology Progress Note ---
Assessment/Plan Problem List: (1) ARF (acute renal failure) (2) UTI (urinary tract infection) (3) Psychiatric disorder (4) Acute abdomen Assessment Status: Na now up to 138 WBCs wnl had multi abdominal drains acute renal failure- extended left colectomy due to perf transverse colostomy creation Plan Plan: low Na ... improving...work up intitiated .....likely SIADH PO Fluid Restriction up to 1200 cc/24h DC lasix IV per charles, 07/20/17 Mag and K supplement as needed Post op ( OP 07/08/17) Dickens- 2D echo normal Ej Fx Albumin bollous monitor renal parameters K and Phos and Mag supplement as needed Subjective ROS Limited/Unobtainable: No Objective Objective Last 24 Hour Vital Signs Date Time Temp Pulse Resp B/P (MAP) Pulse Ox O2 Delivery O2 Flow Rate FiO2 08/21/17 12:00 97.5 108 14 114/77 97 Room Air 97.5 08/21/17 08:00 96.3 117 14 110/78 99 Room Air 96.3 08/21/17 04:59 97.9 08/21/17 04:20 97.9 08/21/17 04:09 97.9 78 18 108/61 98 Room Air 97.9 08/20/17 23:38 98.1 08/20/17 22:37 98.1 08/20/17 21:34 98.1 08/20/17 20:00 98.1 87 18 113/83 97 Room Air 98.1 08/20/17 18:47 97.3 08/20/17 15:58 97.3 100 18 107/75 96 Room Air 97.3 08/20/17 15:16 97.7 Intake and Output 08/20/17 08/21/17 19:00 07:00 Intake Total 600 ml 320 ml Output Total 800 ml Balance 600 ml -480 ml Intake Oral 600 ml 320 ml Output Urine Total 800 ml # Voids 2 3 # Bowel Movements 1 Height (Feet): 5 Height (Inches): 9.00 Weight (Pounds): 108 General Appearance: no apparent distress Objective no other change NOEMY MARK Aug 21, 2017 13:48
--- NOTE | 2017-08-21 14:51 | GI Progress Note ---
Assessment/Plan Problems: (1) Psychiatric disorder ICD Codes: F99 - Mental disorder, not otherwise specified SNOMED: 08139015, 037554657 (2) Amphetamine abuse ICD Codes: F15.10 - Other stimulant abuse, uncomplicated SNOMED: 45765639 (3) Opiate dependence ICD Codes: F11.20 - Opioid dependence, uncomplicated SNOMED: 26071916 Qualifiers: Qualified Codes: F11.20 - Opioid dependence, uncomplicated (4) Perforated abdominal viscus SNOMED: 833916079 Status: stable Status Narrative Discussed with Dr. Castro. Assessment/Plan s/p Exploratory laparotomy, partial bowel resection fu surgical recs IVFs diet adv per surgery colostomy care prn transfusions serial imaging prn pain mgmt fu labs Subjective Subjective abdominal pain Objective Last 24 Hour Vital Signs Date Time Temp Pulse Resp B/P (MAP) Pulse Ox O2 Delivery O2 Flow Rate FiO2 08/21/17 12:00 97.5 108 14 114/77 97 Room Air 97.5 08/21/17 08:00 96.3 117 14 110/78 99 Room Air 96.3 08/21/17 04:59 97.9 08/21/17 04:20 97.9 08/21/17 04:09 97.9 78 18 108/61 98 Room Air 97.9 08/20/17 23:38 98.1 08/20/17 22:37 98.1 08/20/17 21:34 98.1 08/20/17 20:00 98.1 87 18 113/83 97 Room Air 98.1 08/20/17 18:47 97.3 08/20/17 15:58 97.3 100 18 107/75 96 Room Air 97.3 08/20/17 15:16 97.7 Intake and Output 08/20/17 08/21/17 19:00 07:00 Intake Total 600 ml 320 ml Output Total 800 ml Balance 600 ml -480 ml Intake Oral 600 ml 320 ml Output Urine Total 800 ml # Voids 2 3 # Bowel Movements 1 Height (Feet): 5 Height (Inches): 9.00 Weight (Pounds): 108 General Appearance: WD/WN, no apparent distress, alert Cardiovascular: normal rate Respiratory/Chest: normal breath sounds, no respiratory distress Abdominal Exam: normal bowel sounds, non tender, soft Extremities: normal range of motion, non-tender Albarran,Samia Xavier N.P. Aug 21, 2017 14:51
--- NOTE | 2017-08-21 16:09 | Pulmonology Progress Note ---
Assessment/Plan Problems: (1) Perforated abdominal viscus (2) ARF (acute renal failure) (3) Psychosis (4) Acute constipation (5) Amphetamine abuse Assessment/Plan no new complains symptomatic treatment f/u wbc and clinically pain management med/surg all reviewed dc planning in process dc today Subjective ROS Limited/Unobtainable: No Constitutional: Reports: no symptoms HEENT: Repors: no symptoms Respiratory: Reports: no symptoms Allergies: Coded Allergies: No Known Allergies (Unverified , 01/20/17) Objective Last 24 Hour Vital Signs Date Time Temp Pulse Resp B/P (MAP) Pulse Ox O2 Delivery O2 Flow Rate FiO2 08/21/17 12:00 97.5 108 14 114/77 97 Room Air 97.5 08/21/17 08:00 96.3 117 14 110/78 99 Room Air 96.3 08/21/17 04:59 97.9 08/21/17 04:20 97.9 08/21/17 04:09 97.9 78 18 108/61 98 Room Air 97.9 08/20/17 23:38 98.1 08/20/17 22:37 98.1 08/20/17 21:34 98.1 08/20/17 20:00 98.1 87 18 113/83 97 Room Air 98.1 08/20/17 18:47 97.3 Intake and Output 08/20/17 08/21/17 19:00 07:00 Intake Total 600 ml 320 ml Output Total 800 ml Balance 600 ml -480 ml Intake Oral 600 ml 320 ml Output Urine Total 800 ml # Voids 2 3 # Bowel Movements 1 Objective General Appearance: WD/WN Lines, tubes and drains: peripheral HEENT: normocephalic, atraumatic Neck: non-tender, normal alignment Respiratory/Chest: chest wall non-tender, lungs clear Breasts: no masses Cardiovascular/Chest: normal peripheral pulses, normal rate Abdomen: normal bowel sounds, clean dressing Genitourinary/Rectal: normal genital exam, heme negative stool Extremities: normal range of motion, non-tender Skin Exam: normal pigmentation Brenda Martel MD Aug 21, 2017 16:09
--- NOTE | 2017-08-21 23:52 | General Progress Note ---
Assessment/Plan Assessment/Plan #. Anemia, likely due to chronic disease. --> No occult blood. H/H stable at this time and improved from yesterday. --> Monitor and trend cbc daily. --> Anemia workup reviewed. --> Iron 24, TIBC 173, Ferritin 513, B12 424, Folate 9.5, TSH 4.2 --> Does not need blood transfusion unless symptomatic or hgb <7 #. Perforation of viscus and pneumoperitoneum, currently improving. --> Continue to closely monitor. Peripheral smear reviewed as well. --> exam with peritonitis generalized but with focus in LLQ. #. Rhabdomyolysis, currently improved with administration of IV fluids. #. Hypoalbuminemia, likely secondary to decreased p.o. intake, monitor malnutrition. --> Due to elevated CPK of 1543, resolved at this time. #. Pneumoperitoneum. #. Pleuritic chest pain. On pain management. #. Chronic constipation. #. Schizophrenia, paranoid type. --> On risperidone. #. Psychosis. #. Smoker. #. Amphetamine use. #. Perforated left colon with prolonged inflammatory reaction, gross spillage, bowel ischemia. #. Wound Care. #. Leukocytosis. --> Wbc count downtrended from yesterday and resolved at this time. #. Discharge planning. Subjective Date patient seen: Aug 21, 2017 Constitutional: Denies: no symptoms, chills, diaphoresis, fever, malaise, weakness, other HEENT: Denies: no symptoms, eye pain, blurred vision, tearing, double vision, ear pain, ear discharge, nose pain, nose congestion, throat pain, throat swelling, mouth pain, mouth swelling, other Cardiovascular: Denies: no symptoms, chest pain, edema, irregular heart rate, lightheadedness, palpitations, syncope, other Respiratory: Denies: no symptoms, cough, orthopnea, shortness of breath, SOB with excertion, SOB at rest, sputum, stridor, wheezing, other Gastrointestinal/Abdominal: Denies: no symptoms, abdomen distended, abdominal pain, black stools, tarry stools, blood in stool, constipated, diarrhea, difficulty swallowing, nausea, poor appetite, poor fluid intake, rectal bleeding , vomiting, other Genitourinary: Denies: no symptoms, burning, discharge, frequency, flank pain, hematuria, incontinence, pain, urgency, other Neurologic/Psychiatric: Denies: no symptoms, anxiety, depressed, emotional problems, headache, numbness, paresthesia, pre-existing deficit, seizure, tingling, tremors, weakness, other Hematologic/Lymphatic: Reports: anemia Allergies: Coded Allergies: No Known Allergies (Unverified , 01/20/17) Subjective No complaints of pain. NAD. Pending discharge today. Objective Last 24 Hour Vital Signs Date Time Temp Pulse Resp B/P (MAP) Pulse Ox O2 Delivery O2 Flow Rate FiO2 08/21/17 12:00 97.5 108 14 114/77 97 Room Air 97.5 08/21/17 08:00 96.3 117 14 110/78 99 Room Air 96.3 08/21/17 04:59 97.9 08/21/17 04:20 97.9 08/21/17 04:09 97.9 78 18 108/61 98 Room Air 97.9 Intake and Output 08/20/17 08/21/17 19:00 07:00 Intake Total 600 ml 320 ml Output Total 800 ml Balance 600 ml -480 ml Intake Oral 600 ml 320 ml Output Urine Total 800 ml # Voids 2 3 # Bowel Movements 1 Height (Feet): 5 Height (Inches): 9.00 Weight (Pounds): 108 General Appearance: no apparent distress EENT: normal ENT inspection Neck: normal alignment Cardiovascular: normal rate Respiratory/Chest: lungs clear Abdomen: non tender, soft KENDALL TAI Aug 21, 2017 23:52
--- NOTE | 2017-08-23 17:32 | Discharge Summary ---
Discharge Summary Discharge Summary Discharge Summary DATE OF ADMISSION: 07/03/2017 DATE OF DISCHARGE: 08/21/2017 CONSULTANTS: Dr. Gilberto Montanez [facility] HOSPITAL COURSE: Patient is an unfortunate 46-year-old male with history of schizophrenia presented to ED complaining of abdominal pain. He claimed he hadn't had a bowel movement for 2 weeks. He had pain and several hospitals most recently in [facility]. He continued to have abdominal pain, diffuse in nature, 10 out of 10. On evaluation at ED, blood work showed elevated WBC, creatinine was elevated to 5, BUN was 64. He had a CAT scan of the abdomen that showed moderate dilated small bowel, moderate stool retention in the colon. He was then admitted for acute renal failure and for evaluation of abdominal pain. Initial total creatinine kinase was elevated to 1543, he had episodes of hyperkalemia and was given Kayexalate. He was given IV hydration with improvement in renal function. He was given how well regimen consisting of lactulose and MiraLAX. He continued to have abdominal pain and was asking for narcotics. A repeat CT scan showed interim development of a large pneumoperitoneum. On 07/08/2017 he underwent exploratory laparotomy with extended left colectomy and creation of a transverse colostomy with evacuation of intra-abdominal abscess and abdominal washout with drain placement. Post operative findings showed a perforated left colon with prolonged inflammatory reaction, gross spillage and bowel ischemia. Drains were left in place. He was eventually extubated and was finally started on clear liquid diet which was later on advanced. His recovery was challenging due to his mental state. He was followed by psychiatrist and antipsychotics were increased. He was noted to have initially a small dehiscence on the abdomen. A repeat CT of the abdomen showed left upper quadrant intraperitoneal fluid collection despite presence of a surgical drain. On 07/19/2017 he underwent aspiration and drainage of the left upper quadrant by IR. Procedure yielded 150 mL of carin pus. On 07/20/2017 he again underwent exploratory laparotomy with evacuation of intra-abdominal abscess and debridement of necrotic infected tissues. He underwent abdominal washout, drain placement, and abdominal closure. His ostomy was viable and functional. He was eventually started on diet. Midline wound improved and almost healed. During his stay he was also followed by infectious disease specialist. Blood cultures did not isolate any growth. Bowel perforation abscess with Escherichia coli (ESBL) and enterococcus avium. He was initially given Zosyn and Rocephin which was later transitioned to Invanz. He was also given by mouth amoxicillin for enterococcal coverage. He was eventually cleared by surgery for discharge, no need for antibiotic per ID. He was eventually discharged to a [facility]. FINAL DIAGNOSES: Acute renal failure Perforated abdominal viscus Acute constipation Amphetamine abuse Anemia of chronic disease Acute rhabdomyoma lysis Pneumoperitoneum Schizophrenia paranoid type Hyponatremia likely SIADH Opiate Dependence Status post exploratory laparotomy with transverse colostomy creation Status post exploratory laparotomy with evacuation of intra-abdominal abscess, debridement of necrotic infected tissues, abdominal washout and abdominal closure. (Please refer to operative report) DISPOSITION: Patient was discharged to [facility] DISCHARGE MEDICATIONS: Refer to Discharge Medication List. I have been assigned to dictate discharge summary on this account, and I was not involved in the patient's management. Mercedes Pires NP Aug 23, 2017 17:32
== END 2017-08-21 14:00 | DRG 221 ==
LOC: EDBD 23:04 → EMR 23:12 → 4E 07-03 05:23 → EDBEDREQ 07-03 06:11 → 2E 07-03 09:50 → 4W 07-05 16:19 → 2E 07-06 22:20 → ICU 07-08 20:48 → 2E 07-10 18:15 → 4E 07-11 20:14 → 4W 07-25 06:40 → SDSOVERFLO 07-25 11:40 → 4W 07-25 11:43
PROC: 0D1L0Z4 Bypass Transverse Colon to Cutaneous, Open Approach (ICD-10-PCS; principal; 2017-07-08 15:00)
PROC: 0DTG0ZZ Resection of Left Large Intestine, Open Approach (ICD-10-PCS; principal; 2017-07-08 15:00)
PROC: 0DBU0ZZ Excision of Omentum, Open Approach (ICD-10-PCS; principal; 2017-07-08 15:00)
PROC: 0W9G3ZZ Drainage of Peritoneal Cavity, Percutaneous Approach (ICD-10-PCS; 2017-07-19)
PROC: 0JB80ZZ Excision of Abdomen Subcutaneous Tissue and Fascia, Open Approach (ICD-10-PCS; 2017-07-20)
PROC: 0W9G00Z Drainage of Peritoneal Cavity with Drainage Device, Open Approach (ICD-10-PCS; 2017-07-20)
PROC: 0WQF0ZZ Repair Abdominal Wall, Open Approach (ICD-10-PCS; 2017-07-20)
PROC: 3E1M38Z Irrigation of Peritoneal Cavity using Irrigating Substance, Percutaneous Approach (ICD-10-PCS; 2017-07-20)
DX: K63.1 Perforation of intestine (nontraumatic) (principal); K65.1 Peritoneal abscess; G93.40 Encephalopathy, unspecified; N17.9 Acute kidney failure, unspecified; T81.32XA Disruption of internal operation (surgical) wound, not elsewhere classified, initial encounter; E22.2 Syndrome of inappropriate secretion of antidiuretic hormone; K55.9 Vascular disorder of intestine, unspecified; M62.82 Rhabdomyolysis; F11.20 Opioid dependence, uncomplicated; E87.5 Hyperkalemia; F20.0 Paranoid schizophrenia; N39.0 Urinary tract infection, site not specified; F15.10 Other stimulant abuse, uncomplicated; N18.9 Chronic kidney disease, unspecified; F29 Unspecified psychosis not due to a substance or known physiological condition; I12.9 Hypertensive chronic kidney disease with stage 1 through stage 4 chronic kidney disease, or unspecified chronic kidney disease; J44.9 Chronic obstructive pulmonary disease, unspecified; K59.03 Drug induced constipation; T40.2X5A Adverse effect of other opioids, initial encounter; R07.81 Pleurodynia; Z72.0 Tobacco use; F41.9 Anxiety disorder, unspecified; Z76.5 Malingerer [conscious simulation]; I25.10 Atherosclerotic heart disease of native coronary artery without angina pectoris; D64.9 Anemia, unspecified; D78.11 Accidental puncture and laceration of the spleen during a procedure on the spleen; E46 Unspecified protein-calorie malnutrition; Z68.1 Body mass index [BMI] 19.9 or less, adult; B96.20 Unspecified Escherichia coli [E. coli] as the cause of diseases classified elsewhere
CPT/HCPCS: 36415; 36600; 71045; 71275; 74018; 74176; 74177; 75989; 76705; 80048; 80053; 80061; 80076; 80307; 81003; 82270; 82378; 82436; 82533; 82550; 82607; 82728; 82746; 82803; 82962; 83010; 83036; 83540; 83550; 83615; 83690; 83735; 83880; 83921; 83930; 83935; 84100; 84133; 84238; 84300; 84439; 84443; 84481; 84484; 84550; 85007; 85025; 85044; 85060; 85384; 85610; 85651; 85730; 86140; 86850; 86900; 86901; 86920; 87040; 87070; 87075; 87081; 87086; 87181; 87205; 87324; 93005; 93306; 93970; 94002; 94003; 94150; 94640; 94664; 94760; 99285; J2250; J2405; J8499

== ENCOUNTER 2018-03-25 22:57 | Emergency (ER) | payer OTHER ==
[~2018-03-25] VITALS: Ht 165.1 cm; Wt 61.2 kg
[~2018-03-25 22:57] MED LIST changes: +ACETAMINOPHEN325 M1 ORAL; +FINASTERIDE5 MG ORAL; +HEPARIN SO5000 UNIT2 SUBQ; +HYDROMORPHO2 MG/1 M5 IVP; +LANSOPRAZOLE30 MG ORAL; +MERREM1 GM IV; +NORCO 5-325 TA1 EACH ORAL; +RESTORIL15 MG ORAL; +RISPERDAL2 MG ORAL; +TUMS500 MG ORAL; +ZYVOX600 MG ORAL
[2018-03-25 23:00] VITALS: BP 105/66
--- NOTE | 2018-03-26 00:56 | Emergency Room Report ---
History of Present Illness General Chief Complaint: Pain Source: Patient Present Illness HPI Is a 47-year-old male with a history of colon resection secondary to perforated bowel. He has a stoma. He presents with chief complaint of pain to the stoma area. He said is irritated. Denies any fever chills but no nausea no vomiting. He said that he is passing gas. Denies any other complaint. Pain is 8 out of 10. He does have a history of chronic pain. Allergies: Coded Allergies: No Known Allergies (Unverified , 01/20/17) Patient History Past Medical History: see triage record, old chart reviewed Past Surgical History: other Pertinent Family History: none Social History: Denies: smoking Immunizations: other Reviewed Nursing Documentation: PMH: Agreed; PSxH: Agreed Nursing Documentation-PMH Past Medical History: No History, Except For Hx Cardiac Problems: Yes Hx Hypertension: Yes Hx Pacemaker: No Hx Asthma: Yes Hx COPD: Yes Hx Diabetes: No Hx Cancer: No Hx Gastrointestinal Problems: Yes - hernia,anemia Hx Dialysis: No Hx Neurological Problems: No Hx Cerebrovascular Accident: No Hx Seizures: No Review of Systems Eye: Denies: eye pain, blurred vision ENT: Denies: ear pain, nose congestion, throat swelling Respiratory: Denies: cough, shortness of breath Cardiovascular: Denies: chest pain, palpitations Gastrointestinal: Reports: abdominal pain; Denies: diarrhea, nausea, vomiting Musculoskeletal: Denies: back pain, joint pain Skin: Denies: rash Neurological: Denies: headache, numbness Endocrine: Denies: increased thirst, increased urine Hematologic/Lymphatic: Denies: easy bruising All Other Systems: negative except mentioned in HPI Physical Exam Vital Signs Date Time Temp Pulse Resp B/P (MAP) Pulse Ox O2 Delivery O2 Flow Rate FiO2 03/25/18 22:55 97.9 77 18 94/57 97 Room Air vitals normal Sp02 EP Interpretation: reviewed, normal General Appearance: well appearing, no apparent distress, alert, thin Head: normocephalic, atraumatic Eyes: bilateral eye PERRL, bilateral eye EOMI ENT: hearing grossly normal, normal pharynx Neck: full range of motion, supple, no meningismus Respiratory: chest non-tender, lungs clear, normal breath sounds Cardiovascular #1: regular rate, rhythm, no murmur Gastrointestinal: normal bowel sounds, non tender, no mass, no organomegaly, no bruit, non-distended, other - Stoma is patent. There is soft stool in the stoma. Minimal erythema around the stoma. Surgical incision site is clean without evidence of infection. Musculoskeletal: back normal, gait/station normal, normal range of motion Psychiatric: mood/affect normal Skin: warm/dry Medical Decision Making Diagnostic Impression: Primary Impression: Abdominal pain Qualified Codes: R10.84 - Generalized abdominal pain ER Course Patient with abdominal pain. First he asked for is to be admitted to he can get reversal of his colostomy bag. I told patient that is not can happen today. He need to follow-up with surgeon. No evidence of any obstruction. In fact, patient ate two sandwiches and keep asking for more. He said that his passing gas through his anus. I told him that is normal. I see no criteria for admission. We'll discharge to longterm. CT/MRI/US Diagnostic Results CT/MRI/US Diagnostic Results : Imaging Test Ordered: CT abdomen and pelvis Impression read by radiologist. No acute process. Last Vital Signs Date Time Temp Pulse Resp B/P (MAP) Pulse Ox O2 Delivery O2 Flow Rate FiO2 03/25/18 22:55 97.9 77 18 94/57 97 Room Air Status: improved Disposition: XFER SNF Condition: Stable Referrals: [facility],REFERRING (PCP) Riccardo Albarran MD Mar 26, 2018 00:56
[2018-03-26 01:09] VITALS: BP 110/62
--- NOTE | 2018-03-26 09:48 | Diagnostic Imaging Report ---
Indication: Abdominal pain Technique: Noncontrast CT of the abdomen and pelvis utilizing automated exposure control. Axial, sagittal and coronal reformats presented. CT dose: Total DLP 429.24 mGycm; CTDI vol 8.96 mGy Comparison: Multiple prior CTs of the abdomen with most recent being on 07/18/2017 Findings: Please note that evaluation of the abdominal and pelvic viscera and vascular structures is limited without the use of intravenous and oral contrast. Within these limitations the following observations are made: Subsegmental atelectasis or scarring noted in the left lower lobe. Some very mild dependent atelectatic changes noted in the right lower lobe. There is no pleural effusion or pneumothorax. Heart size within normal limits. No pericardial effusion. Some mild coronary arterial calcifications partially visualized. Noncontrast evaluation of the liver, spleen, gallbladder, adrenal glands and pancreas grossly unremarkable. The previously seen fluid collections in the liver have resolved. The kidneys appear symmetric in size. There is no evidence of hydronephrosis or perinephric stranding bilaterally. There is a subcentimeter low-attenuation focus in the midpole the left kidney (series 3 image #53) which may represent a tiny angiomyolipoma. Additionally there is a approximately 3 mm dense rounded lesion in the anterior aspect of the left kidney (series 3 image #61) which may represent a hemorrhagic or proteinaceous cyst. The bladder is unremarkable. Prostate not enlarged. There is no free intraperitoneal air. Previously seen free intraperitoneal has resolved. The patient again noted to be status post partial colectomy with creation of a Kumar's pouch and a left-sided colostomy. The stomach is mildly distended with ingested material and air. The proximal duodenum is mildly distended. Small bowel distal to this is normal in caliber. Appendix is not definitively identified however there are no focal inflammatory changes in the right lower quadrant. There is moderate colonic stool burden. Questionable thickening of some small bowel loops in the left abdomen which may represent a nonspecific enteritis. Please note that evaluation of the gastrointestinal tract is limited without the use of oral contrast. Abdominal aorta is normal in caliber. 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 Midline surgical scar in left-sided ostomy without evidence of adjacent fluid collection. There are degenerative changes of the spine. There are mild superior endplate height loss of the L1, L2 and L3 vertebral bodies. These were not seen previously. IMPRESSION: Limited exam without intravenous and oral contrast. Within these limitations: * Status post partial colectomy, left-sided colostomy and Kumar's pouch. No evidence of bowel obstruction or free intraperitoneal air. * Questionable mild bowel wall thickening involving some small bowel left abdomen which may represent a nonspecific enteritis. * Mild superior endplate height loss of the L1, L2 and L3 vertebral bodies, new from the prior exam. There are represent developing compression deformities. Correlate for point tenderness at these areas. * Likely subcentimeter cyst versus angiomyolipoma the left kidney. Additional high attenuation well-circumscribed subcentimeter lesion in the left kidney which may represent a hemorrhagic or proteinaceous cyst. Further evaluation with ultrasound recommended on routine basis. Additional findings as above. The CT scanner at [facility] is accredited by the [employer] and the scans are performed using protocols designed to limit radiation exposure to as low as reasonably achievable to attain images of sufficient resolution adequate for diagnostic evaluation.
== END 2018-03-26 01:10 ==
LOC: EDBD 22:57 → EMR 23:29
DX: R10.84 Generalized abdominal pain (principal); I10 Essential (primary) hypertension; G89.29 Other chronic pain; D64.9 Anemia, unspecified; K46.9 Unspecified abdominal hernia without obstruction or gangrene; J45.909 Unspecified asthma, uncomplicated; Z93.3 Colostomy status; Z86.79 Personal history of other diseases of the circulatory system
CPT/HCPCS: 74176; 99283

== ENCOUNTER 2018-03-28 13:51 | Emergency (ER) | payer OTHER ==
[~2018-03-28] VITALS: Ht 175.3 cm; Wt 65.8 kg
[2018-03-28 14:40] VITALS: BP 96/61
--- NOTE | 2018-03-28 14:44 | Emergency Room Report ---
History of Present Illness General Chief Complaint: General Complaint Source: Patient Present Illness HPI 47-year-old male patient presents ER requesting colostomy bag placement. Patient reports he had a stoma surgery and colostomy bag placed in May of this year following a perforated bowel. does not know what caused his belt perforate. Patient states class fell out earlier today. Reports normal able to clean himself however not able to currently. Reports was seen at [facility] for similar symptoms. States he left AMA because they were "taking too long". Denies abdominal pain. Denies fever, chest pain, shortness of breath. states states able to pass gas. patient currently requesting drinks and food. Denies vomiting. Patient was seen here recently for abdominal pain symptoms [facility] Allergies: Coded Allergies: No Known Allergies (Unverified , 01/20/17) Patient History Past Medical History: see triage record Reviewed Nursing Documentation: PMH: Agreed; PSxH: Agreed Nursing Documentation-PMH Past Medical History: No History, Except For Hx Cardiac Problems: Yes - HIV+ Hx Hypertension: Yes Hx Pacemaker: No Hx Asthma: Yes Hx COPD: Yes Hx Diabetes: No Hx Cancer: No Hx Gastrointestinal Problems: Yes - hernia,anemia Hx Dialysis: No Hx Neurological Problems: No Hx Cerebrovascular Accident: No Hx Seizures: No Review of Systems All Other Systems: negative except mentioned in HPI Physical Exam Vital Signs Date Time Temp Pulse Resp B/P (MAP) Pulse Ox O2 Delivery O2 Flow Rate FiO2 03/28/18 14:10 98.1 101 20 96/61 98 Room Air Sp02 EP Interpretation: reviewed, normal General Appearance: well appearing, no apparent distress, alert, GCS 15, non- toxic Head: normocephalic, atraumatic Eyes: bilateral eye normal inspection, bilateral eye PERRL ENT: hearing grossly normal, normal pharynx, no angioedema, normal voice, uvula midline, moist mucus membranes Neck: full range of motion Respiratory: lungs clear, normal breath sounds, no rhonchi, no respiratory distress, no accessory muscle use, no wheezing, speaking full sentences Cardiovascular #1: regular rate, rhythm, no edema Gastrointestinal: non tender, soft, no mass, no organomegaly, non-distended, no guarding, other - stoma and left lower quadrant, stools present on outer portion of stoma, stoma is patent, minimal erythema, surgical incisions clean without signs of infection, no erythema, no edema, streaking Genitourinary: no CVA tenderness Musculoskeletal: back normal, digits/nails normal, gait/station normal, normal range of motion, non-tender Neurologic: alert, oriented x3, responsive, motor strength/tone normal, sensory intact Psychiatric: mood/affect normal Skin: no rash Medical Decision Making PA Attestation Dr. Gaston is my supervising Physician whom patient management has been discussed with. Diagnostic Impression: Primary Impression: Encounter for attention to colostomy ER Course Pt. presents to the ED c/o requesting colostomy bag placement. Ddx considered but are not limited to colostomy bag placement, stoma infection, cellulitis, stomach operation. Vital signs: are WNL, pt. is afebrile ER COURSE: colostomy bag placed. site cleaned. does not require antibiotics, no signs of infection. Stoma patent. ER precautions given. Follow-up with primary care provider. DISCHARGE: At this time pt is stable for d/c to home. Patient is resting comfortably, in no acute distress, nontoxic appearing, talking without difficulty. Patient to take medications as instructed Will provide with patient care instructions and any necessary prescriptions. Care plan and follow-up instructions provided. Patient instructed to follow-up with primary care provider in 3 - 5 days. Patient questions asked and answered. Patient reports understanding and agreement to treatment plan. ER precautions given. Patient instructed to return to ER immediately for any new or worsening of symptoms including but not limited to increasing SOB, persistent fever, chest pain, intractable vomiting. - Please note that this Emergency Department Report was dictated using [employer] analyst technology software, occasionally this can lead to erroneous entry secondary to interpretation by the dictation equipment. Last Vital Signs Date Time Temp Pulse Resp B/P (MAP) Pulse Ox O2 Delivery O2 Flow Rate FiO2 03/28/18 14:10 98.1 101 20 96/61 98 Room Air Status: improved Disposition: HOME, SELF-CARE Condition: Stable Patient Instructions: Colostomy Home Guide Additional Instructions: Followup with primary care provider in 2-3 days for further treatment and evaluation. Take medications as directed. Patient questions asked and answered. ER precautions given, patient instructed to return to ER immediately for any new or worsening of symptoms. Alireza Rojas Mar 28, 2018 14:44
[2018-03-28 15:40] VITALS: BP 102/63
== END 2018-03-28 15:50 | disposition home or self-care (01) ==
LOC: EMR 15:40
DX: Z43.3 Encounter for attention to colostomy (principal); I10 Essential (primary) hypertension; J45.909 Unspecified asthma, uncomplicated
CPT/HCPCS: 99283